=== PATIENT | female | born 1970 | race African-American/Black ===

== ENCOUNTER 2022-01-16 08:44 | Outpatient (REF) | payer OTHER, SELFPAY ==
[2022-01-16 09:23] LABS: MANUAL DIFF FLAG NO
[2022-01-16 09:59] LABS: Basophils Absolute Auto 0.1 X10*3/uL (0.0-0.2); Basophils Percent Auto 0.9 % (0-2); Eosinophils Absolute Auto 0.1 X10*3/uL (0.0-0.4); Eosinophils Percent Auto 1.9 % (0-4); Hematocrit 37.5 % (37.0-47.0); Hemoglobin 12.7 g/dl (12.0-16.0); Imm Gran Abs Auto 0.01 X10*3/uL (0.00-0.03); Imm Gran Pct Auto 0.2 % (0.0-0.4); Lymphocytes Absolute Auto 1.9 X10*3/uL (1.2-4.9); Lymphocytes Percent Auto 35.2 % (20-40); Mean Corpuscular HGB Conc 33.9 g/dl (31.0-35.0); Mean Corpuscular Hemoglobin 29.5 pg (27.0-33.0); Mean Corpuscular Volume 87.2 fL (80.0-98.0); Mean Platelet Volume 8.9 fL (9.4-12.3); Monocytes Absolute Auto 0.3 X10*3/uL (0.1-1.2); Monocytes Percent Auto 6.4 % (2-11); Neutrophils Absolute Auto 2.9 x10*3/uL (2.0-8.3); Neutrophils Percent Auto 55.4 % (45-73); Platelet Count 323 X10*3/uL (160-400); Red Cell Distribution Width 12.1 % (11.0-16.0); White Blood Count 5.3 X10*3/uL (4.8-10.8)
[2022-01-16 10:14] LABS: Estimated Average Glucose 226 mg/dL; Hemoglobin A1c % 9.5 %
[2022-01-16 10:43] LABS: Alanine Aminotransferase 12 U/L (0-31); Albumin Level 4.3 g/dL (3.5-5.0); Alkaline Phosphatase 120 U/L (39-117); Anion Gap 14 (12-20); Aspartate Amino Transferase 10 U/L (5-31); Bilirubin Total 0.6 mg/dL (0.0-1.0); Blood Urea Nitrogen 12 mg/dL (9-16); Calcium 9.4 mg/dL (8.4-10.2); Carbon Dioxide 26 mmol/L (22-29); Chloride 103 mmol/L (96-108); Cholesterol 139 mg/dL; Estimated Glomerular Filt Rate 56; Glucose Random 205 mg/dL (60-115); HDL Cholesterol 34 mg/dL; LDL Cholesterol Calculated 96 mg/dl; Potassium 4.5 mmol/L (3.3-5.1); Sodium 138 mmol/L (135-145); Total Protein 7.1 g/dL (6.5-8.0); Triglycerides 49 mg/dL
[2022-01-16 10:45] LABS: TSH reflex Free T4 0.74 uIU/mL (0.32-4.0); Vitamin D 25-OH Total 37.8 ng/mL (>30)
[2022-01-16 11:39] LABS: Folate 19.9 ng/mL (> or = 4.0); Vitamin B12 752 pg/mL (200-900)
[2022-01-16 11:47] LABS: Creatinine Urine 222.67 mg/dL
[2022-01-21 01:17] LABS: Levetiracetam Keppra 33.2 mcg/mL (6.0-46.0)
== END 2022-01-16 08:45 | disposition home or self-care (01) ==
LOC: HO.LAB 08:44
PROVIDERS: PCP Nurse Practitioner Family; Visit Provider Nurse Practitioner Family
DX: Z13.29 Encounter for screening for other suspected endocrine disorder (principal); I10 Essential (primary) hypertension; E78.5 Hyperlipidemia, unspecified; E11.9 Type 2 diabetes mellitus without complications; R56.9 Unspecified convulsions; Z76.89 Persons encountering health services in other specified circumstances
CPT/HCPCS: 36415; 80053; 80061; 80177; 82043; 82306; 82607; 82746; 83036; 84443; 85025

== ENCOUNTER → 2022-04-04 16:09 | Outpatient (BNVA) | payer MEDICARE, MEDICAID, SELFPAY | PROVIDERS: PCP Nurse Practitioner Family; Visit Provider Nurse Practitioner | DX: Z01.818 Encounter for other preprocedural examination (principal); R56.9 Unspecified convulsions; I69.951 Hemiplegia and hemiparesis following unspecified cerebrovascular disease affecting right dominant side | CPT/HCPCS: 99202 ==

== ENCOUNTER 2022-06-09 13:44 | Outpatient (REF) | payer MEDICARE, MEDICAID, SELFPAY ==
--- NOTE | ~2022-06-09 | XR_ITS ---
EXAMINATION: SOFT TISSUE NECK AND CHEST. CLINICAL INFORMATION: Chest pain. Chest pain COMPARISON: None TECHNIQUE: Chest one view. Soft tissue neck 2 views. FINDINGS: Chest: The lungs are well-expanded and clear of acute process. The heart size and pulmonary vascularity is normal. No gross bony abnormality seen. Soft tissue neck: There is normal cervical lordosis. The vertebral heights, alignment are normal. There is loss of C4-C5 and C5-C6 disc height with moderate ventral spondylosis. Rest of the disc heights are normal. There is no visible acute fracture or dislocation. The prevertebral soft tissues are normal. XR/XR soft tissue neck IMPRESSION: 1. Unremarkable chest exam. 2. Degenerative disc changes C4-C5 and C5-C6 disc level with moderate ventral spondylosis. No visible acute fracture or dislocation seen.
--- NOTE | ~2022-06-09 | XR_ITS ---
EXAMINATION: SOFT TISSUE NECK AND CHEST. CLINICAL INFORMATION: Chest pain. Chest pain COMPARISON: None TECHNIQUE: Chest one view. Soft tissue neck 2 views. FINDINGS: Chest: The lungs are well-expanded and clear of acute process. The heart size and pulmonary vascularity is normal. No gross bony abnormality seen. Soft tissue neck: There is normal cervical lordosis. The vertebral heights, alignment are normal. There is loss of C4-C5 and C5-C6 disc height with moderate ventral spondylosis. Rest of the disc heights are normal. There is no visible acute fracture or dislocation. The prevertebral soft tissues are normal. XR/XR chest 1V IMPRESSION: 1. Unremarkable chest exam. 2. Degenerative disc changes C4-C5 and C5-C6 disc level with moderate ventral spondylosis. No visible acute fracture or dislocation seen.
== END 2022-06-09 13:45 | disposition home or self-care (01) ==
LOC: HO.HMGCX 13:44
PROVIDERS: PCP Nurse Practitioner Family; Visit Provider Physician Assistant
DX: R07.9 Chest pain, unspecified (principal); M54.2 Cervicalgia
CPT/HCPCS: 70360; 71045

== ENCOUNTER 2022-06-10 10:37 | Emergency (ER) | payer MEDICARE, MEDICAID, SELFPAY ==
--- NOTE | 2022-06-10 | ECG_ITS ---
Test Reason : CHEST PAIN Blood Pressure : / mmHG Vent. Rate : 084 BPM Atrial Rate : 084 BPM P-R Int : 144 ms QRS Dur : 068 ms QT Int : 344 ms P-R-T Axes : 057 015 033 degrees QTc Int : 406 ms Normal sinus rhythm Normal ECG When compared with ECG of 15-MAY-2019 21:34, No significant change was found Referred By: Generic ED Physician Electronically Signed By:ALETA GONZALEZ MD
[2022-06-10 10:55] VITALS: BP 121/80; PULSE 85; RESP 18; TEMP 36.4; O2SAT 95; BMI 27.9
--- NOTE | 2022-06-10 11:27 | ED.GENADULT ---
HPI - General Adult General Chief complaint: General Medical Stated complaint: Swollen lymph nodes Time Seen by Provider: 06/10/22 11:15 Source: patient and family Mode of arrival: ambulatory Limitations: no limitations History of Present Illness HPI narrative: 52y female with history of CVA wih righ sided weakness, IDDM, HLD, HTN presents with complaints of several days of chest discomfort which is sharp, worsened with deep breathing and movement with no associated shortness of breath, cough, leg swelling or leg pain. No fevers or chills. Patient also complaining of sore throat and swollen lymph nodes on the right side. No night sweats, weight loss. No reports of vomiting or diarrhea or abdominal pain. No neck pain or stiffness or heaache No recent travel or sick contacts Per patient in the past she has had intermittent swollen lymph nodes it has been given antibiotics which has seemed to help Patient seen at walk-in center yesterday. Patient had EKG and chest x-ray which per family and patient were negative. Patient also had negative COVID test. Was recommended she come to the emergency room yesterday with patient declined this. Related Data Home Medications Medication Instructions Recorded Confirmed aspirin 325 mg tablet,delayed 325 mg PO DAILY 11/27/21 05/30/22 release (Aspir-Siri) lisinopril 2.5 mg tablet 2.5 mg PO DAILY 11/27/21 05/30/22 multivitamin (One-A-Day Essential 1 tab PO DAILY 11/27/21 05/30/22 tablet) Previous Rx's Medication Instructions Recorded blood-glucose meter (Accu-Chek #1 ea 01/23/22 Cindy Plus Meter) atorvastatin 20 mg tablet 20 mg PO DAILY #90 tabs 02/25/22 lamotrigine 150 mg tablet 150 mg PO BID 90 days #180 tabs 03/07/22 peg 3350-electrolytes 236 240 ml PO Q10M 1 day #4,000 mL 04/04/22 gram-22.74 gram-6.74 gram-5.86 gram solution (Golytely) sodium,potassium,mag sulfates 17.5 480 ml PO .COMPLEX #354 mL 04/04/22 gram-3.13 gram-1.6 gram oral soln (Suprep Bowel Prep Kit) dulaglutide 0.75 mg/0.5 mL 0.75 mg (0.5 mL) subcut QWEEK #2 mL 04/25/22 subcutaneous pen injector ([facility]) levetiracetam 1,000 mg tablet 1,000 mg PO BID #60 tabs 06/04/22 clindamycin HCl 150 mg capsule 150 mg PO TID #21 caps 06/10/22 Allergies Allergy/AdvReac Type Severity Reaction Status Date / Time erythromycin base Allergy Unknown UNKNOWN Verified 06/09/22 13:23 [ERYTHROMYCIN BASE] latex [LATEX] Allergy Unknown UNKNOWN Verified 06/09/22 13:23 Penicillins [PENICILLINS] Allergy Unknown UNKNOWN Verified 06/09/22 13:23 latex Allergy Unknown Hives Uncoded 06/09/22 13:23 Review of Systems Review of Systems: Yes all other systems are reviewed and are negative Constitutional: Constitutional: Reports no additional constitutional complaints, Denies body ache(s), Denies chills, Denies fever(s), Denies headache(s) and Denies weakness Eyes: Eyes: Reports no additional eye complaints and Denies change in vision ENT: Reports system reviewed and no additional complaints, except as documented, Denies dizziness, Denies headache(s), Denies nasal congestion, Denies nasal discharge, Denies neck pain and Reports sore throat Cardiovascular: Cardiovascular: Reports no additional cardiovascular complaints, Reports chest pain, Denies leg edema and Denies dyspnea Respiratory: Respiratory: Reports no additional respiratory complaints, Denies cough and Denies dyspnea Gastrointestinal: Gastrointestinal: Reports no additional gastrointestinal complaints, Denies abdominal pain, Denies diarrhea, Denies nausea and Denies vomiting Genitourinary: Genitourinary: Reports no additional female genitourinary complaints and Denies urinary incontinence Musculoskeletal: Musculoskeletal: Reports no additional musculoskeletal complaints, Denies back pain, Denies arthralgias, Denies joint swelling, Denies neck pain, Denies numbness and Denies tingling Integumentary/Breasts: Skin/Breast: Reports system reviewed and no additional complaints, except as docu and Denies rash Neurologic: Reports system reviewed and no additional complaints, except as documented, Denies dizziness, Denies headache(s), Denies numbness, Denies tingling and Denies weakness PMFSH Past Medical History Attestation statement: The following information was validated with the patient. Source: old records reviewed and nursing notes reviewed Medical History Ecchymosis Encounter to establish care Hx of cyst of breast Surgical History H/O colonoscopy History of partial hysterectomy History of thyroid surgery Family History Family History Mother Bone cancer Hypertension Diabetes Father Diabetes Hypertension Social History Social History Housing: Apartment Patient Tobacco Use Status: Never used Tobacco e-Cigarette/Vaping Use: Never Used Second Hand Smoke Exposure: No Advance Directives: Yes Advance Directives Information Provided: Yes Advance Directives on File: No Current occupational status: unemployed Cognitive needs: Yes (cane ) Hearing needs: No Vision needs: Yes (glasses) Physical Exam ED Vital Signs: Vital Signs - 24 hr 06/10/22 10:55 Temperature 97.5 F Pulse Rate 85 Respiratory Rate 18 Blood Pressure 121/80 Pulse Oximetry 95 Oxygen Delivery Method Room Air BMI result Body Mass Index 27.9 Const General: cooperative, healthy appearing, comfortable and no acute distress Orientation/consciousness: patient oriented x3 Limitations: no limitations HENMT Head: Yes normal to inspection Ears: hearing grossly normal bilaterally General nose exam: Normal external nose present Face and sinus: Yes normal facial exam Mouth: Normal oral and palatal mucosa present Teeth and gingiva: dentition normal Throat: Yes posterior oropharynx normal, Yes tonsils normal and Yes uvula midline Eyes General: appearance normal, both eyes and all related structures Pupils: Equal, round and reactive pupils present Neck Other: There is some mild lymphadenopathy over the right anterior cervical and sub mandibular area. No supraclavicular lymphadenopathy. There is tenderness on palpation. The nodes are soft and mobile Neck: Yes normal visual inspection, Yes full ROM and Yes no meningeal signs Chest Other: Central chest tender to palpate Chest palpation & inspection: normal inspection of the chest Resp Effort & Inspection: normal respiratory effort Auscultation: clear to auscultation bilaterally Cardio Rate: regular rate Rhythm: regular rhythm Peripheral pulses: Peripheral pulses 2+ throughout GI Inspection: Yes normal to inspection Palpation (GI): Soft to palpation and nontender General: Yes no CVA tenderness Back/Spine/Pelvis Back: no CVA tenderness Thoracic/Lumbar Spine: thoracic and lumbar spine normal to inspection Skin General skin exam: no rashes or lesions noted Neuro Other: Weakness on right side at baseline General: patient oriented x3, moves all extremities and no meningeal signs Cranial nerves: Yes Equal, round and reactive pupils present Cognition (Neuro): normal cognition Gait exam (Neuro): Normal gait present Extrem General: Yes normal to inspection, Yes no pedal edema and Yes no calf tenderness Course Course Course Narrative: Less likely ACS with symptoms for several days with negative EKG and troponin. I did consider PE. Patient has no hypoxia, no tachypnea, no tachycardia. She has no clinical findings concerning for DVT and exam. Her D-dimer is negative. Less likely. Patient with lymphadenopathy which has been recurrent with no supraclavicular lymphadenopathy or worrisome signs and symptoms such as weight loss or night sweats to suggest malignancy. We did discuss starting antibiotics and patient following up with her primary care doctor for reoccur in lymphadenopathy for possible biopsy. Reviewed worrisome signs and symptoms of when to return to the emergency room. Comfortable plan for discharge home. Medical Decision Making [facility] Narrative Medical decision making narrative: 52yo female here with several days of chest pain which is reproducible and pleuritic in nature with no shortness of breath, diaphoresis or vomiting or fever cough. Also sore throat with right-sided swollen lymph nodes.. Will check labs, EKG. Family defferedd COVID screen and chest x-ray as patient had yesterday and were negative. Consider ACS, PE, viral syndrome Medical Records Medical records reviewed: Yes I reviewed the patient's medical records. Lab Data Lab results reviewed: Yes I reviewed the patient's lab results. Result diagrams: 06/10/22 11:45 06/10/22 11:45 Labs: Lab Results 06/10/22 06/10/22 06/10/22 Range/Units 11:45 11:45 11:45 WBC 6.5 (4.8-10.8) X10*3/uL RBC 4.41 (4.20-5.50) X10*6/uL Hgb 13.0 (12.0-16.0) g/dl Hct 38.5 (37.0-47.0) % MCV 87.3 (80.0-98.0) fL MCH 29.5 (27.0-33.0) pg MCHC 33.8 (31.0-35.0) g/dl RDW 12.3 (11.0-16.0) % Plt Count 342 (160-400) X10*3/uL MPV 8.6 L (9.4-12.3) fL Absolute Nucleated RBC 0.000 (0.0-0.012) X10*3/uL Nucleated RBC % (auto) 0.0 (0.0-0.2) /100WBC PT 12.8 (10.0-13.1) SEC INR 1.1 (0.9-1.1) D-Dimer High Sensitivty < 150 NG/ML Sodium 140 (135-145) mmol/L Potassium 4.3 (3.3-5.1) mmol/L Chloride 103 (96-108) mmol/L Carbon Dioxide 27 (22-29) mmol/L Anion Gap 14 (12-20) BUN 16 (9-16) mg/dL Creatinine 1.02 (0.5-1.4) mg/dL Estim Creat Clear Calc 67.3 Estimated GFR 57 Random Glucose 86 (60-115) mg/dL Calcium 9.8 (8.4-10.2) mg/dL Total Bilirubin 0.3 (0.0-1.0) mg/dL Direct Bilirubin < 0.2 (0.0-0.5) mg/dL AST 14 (5-31) U/L ALT 14 (0-31) U/L Alkaline Phosphatase 127 H (39-117) U/L Troponin I High Sens (<3.5-17.0) ng/L Total Protein 7.7 (6.5-8.0) g/dL Albumin 4.7 (3.5-5.0) g/dL 06/10/22 Range/Units 11:46 WBC (4.8-10.8) X10*3/uL RBC (4.20-5.50) X10*6/uL Hgb (12.0-16.0) g/dl Hct (37.0-47.0) % MCV (80.0-98.0) fL MCH (27.0-33.0) pg MCHC (31.0-35.0) g/dl RDW (11.0-16.0) % Plt Count (160-400) X10*3/uL MPV (9.4-12.3) fL Absolute Nucleated RBC (0.0-0.012) X10*3/uL Nucleated RBC % (auto) (0.0-0.2) /100WBC PT (10.0-13.1) SEC INR (0.9-1.1) D-Dimer High Sensitivty NG/ML Sodium (135-145) mmol/L Potassium (3.3-5.1) mmol/L Chloride (96-108) mmol/L Carbon Dioxide (22-29) mmol/L Anion Gap (12-20) BUN (9-16) mg/dL Creatinine (0.5-1.4) mg/dL Estim Creat Clear Calc Estimated GFR Random Glucose (60-115) mg/dL Calcium (8.4-10.2) mg/dL Total Bilirubin (0.0-1.0) mg/dL Direct Bilirubin (0.0-0.5) mg/dL AST (5-31) U/L ALT (0-31) U/L Alkaline Phosphatase (39-117) U/L Troponin I High Sens < 3.5 (<3.5-17.0) ng/L Total Protein (6.5-8.0) g/dL Albumin (3.5-5.0) g/dL ECG Data Attestation: I personally reviewed and interpreted this ECG as follows: Interpretation: Normal sinus rhythm with a rate 84, normal [place], normal QRS, normal QT Discharge Plan Discharge Clinical Impression: Chest pain, Lymphadenopathy Patient Disposition: Home, Self-Care Instructions: Chest Pain (DC), Lymphadenopathy (ED) Additional Instructions: Your EKG, lab work are all very reassuring here. We are starting on oral antibiotic for your swollen lymph nodes. Please follow-up with her primary care doctor if you notice some swelling still after completing the antibiotics. If this happens he may need a biopsy. Please return for any worsening symptoms Always take the antibiotic with food Prescriptions: New clindamycin HCl 150 mg capsule 150 mg PO TID Qty: 21 0RF No Action atorvastatin 20 mg tablet 20 mg PO DAILY Qty: 90 1RF lamotrigine 150 mg tablet 150 mg PO BID 90 Days Qty: 180 1RF levetiracetam 1,000 mg tablet 1,000 mg PO BID Qty: 60 2RF aspirin [Aspir-Siri] 325 mg tablet,delayed release (DR/EC) 325 mg PO DAILY Rx Instructions: Every other day multivitamin [One-A-Day Essential] Tablet 1 tab PO DAILY lisinopril 2.5 mg tablet 2.5 mg PO DAILY Rx Instructions: Every other day (DME) blood-glucose meter [Accu-Chek Cindy Plus Meter] Misc See Rx Instructions .Route Qty: 1 0RF Rx Instructions: As directed Trulicity 0.75 mg/0.5 mL pen injector 0.75 mg subcut QWEEK Qty: 2 1RF peg 3350-electrolytes [Golytely] 236-22.74-6.74 -5.86 gram recon soln 240 ml PO Q10M 1 Days Qty: 4000 0RF Rx Instructions: until fecal effluent is clear; do not exceed a total volume of 2,000 mL sodium,potassium,mag sulfates [Suprep Bowel Prep Kit] 17.5-3.13-1.6 gram recon soln 480 ml PO .COMPLEX Qty: 354 0RF Rx Instructions: 480 mL orally; pT PREFERS THIS PREP SO PLEASE DISREGARD THE GO LYTELY Referrals: Estephania Padilla FNP [Primary Care Provider] - 1 week Interventions: ED Discharge Assessment Last Done: 06/10/22 13:15 Discharge Date/Time: 06/10/22 13:16
[2022-06-10 11:59] LABS: Hematocrit 38.5 % (37.0-47.0); Mean Corpuscular HGB Conc 33.8 g/dl (31.0-35.0); Mean Corpuscular Hemoglobin 29.5 pg (27.0-33.0); Mean Corpuscular Volume 87.3 fL (80.0-98.0); Mean Platelet Volume 8.6 fL (9.4-12.3); Platelet Count 342 X10*3/uL (160-400); Red Blood Count 4.41 X10*6/uL (4.20-5.50); Red Cell Distribution Width 12.3 % (11.0-16.0); White Blood Count 6.5 X10*3/uL (4.8-10.8)
[2022-06-10 12:00] LABS: INTERNATIONAL NORM RATIO 1.1 (0.9-1.1); Prothrombin Time 12.8 SEC (10.0-13.1)
[2022-06-10 12:11] LABS: Alanine Aminotransferase 14 U/L (0-31); Albumin Level 4.7 g/dL (3.5-5.0); Alkaline Phosphatase 127 U/L (39-117); Anion Gap 14 (12-20); Aspartate Amino Transferase 14 U/L (5-31); Bilirubin Direct < 0.2 mg/dL (0.0-0.5); Bilirubin Total 0.3 mg/dL (0.0-1.0); Blood Urea Nitrogen 16 mg/dL (9-16); Calcium 9.8 mg/dL (8.4-10.2); Carbon Dioxide 27 mmol/L (22-29); Chloride 103 mmol/L (96-108); Creatinine Clr Calc Pharmacy 67.3; Estimated Glomerular Filt Rate 57; Glucose Random 86 mg/dL (60-115); Potassium 4.3 mmol/L (3.3-5.1); Sodium 140 mmol/L (135-145); Total Protein 7.7 g/dL (6.5-8.0)
[2022-06-10 12:17] LABS: Troponin-I High Sensitivity < 3.5 ng/L (<3.5-17.0)
[2022-06-10 12:58] LABS: D Dimer High Sensitivity < 150 NG/ML
== END 2022-06-10 13:16 | disposition home or self-care (01) ==
PROVIDERS: Nurse Practitioner Family; Emergency Provider Emergency Medicine; PCP Nurse Practitioner Family
DX: R07.89 Other chest pain (principal); R59.1 Generalized enlarged lymph nodes; Z79.899 Other long term (current) drug therapy
CPT/HCPCS: 36415; 80053; 80076; 82248; 84484; 85027; 85379; 85610; 93005; 99283

== ENCOUNTER → 2022-07-02 12:52 | Outpatient (BNVA) | payer MEDICARE, MEDICAID, SELFPAY | PROVIDERS: PCP Nurse Practitioner Family; Visit Provider Internal Medicine Endocrinology, Diabetes & Metabolism | DX: E11.9 Type 2 diabetes mellitus without complications (principal) | CPT/HCPCS: 82947; 83036; 99202 ==

== ENCOUNTER 2022-07-06 13:07 | Emergency (ER) | payer MEDICARE, MEDICAID, SELFPAY ==
--- NOTE | ~2022-07-06 | CT_ITS ---
EXAMINATION: CT ABDOMEN AND PELVIS WITHOUT CONTRAST CLINICAL INFORMATION: Abdominal pain. Question C. difficile colitis COMPARISON: None TECHNIQUE: Multidetector volumetric imaging was performed from the superior aspect of the liver through the pubic symphysis. Sagittal and coronal reformatted images were obtained on the technologist's workstation. This CT examination was performed using dose optimization techniques as appropriate, variously including the following: *Automated exposure control *Adjustment of mA and/or kV according to patient size (this includes techniques or standardized protocols for targeted exams where dose is matched to indication/reason for exam; i.e. extremities or head) *Use of iterative reconstruction technique DLP: 661 mGy-cm FINDINGS: LUNG BASES: Minimal subsegmental atelectasis in the right middle lobe. Multiple surgical clips in the left breast. Small 1.3 x 0.6 cm soft tissue nodule in the anterior left lower chest wall/medial breast on series 3 image 8, indeterminate. LIVER, GALLBLADDER, AND BILIARY TREE: The liver is normal in size, shape, and attenuation. No focal hepatic lesion or biliary ductal dilatation is present. The gallbladder is unremarkable with no evidence of radiopaque gallstones, gallbladder wall thickening, or obvious pericholecystic inflammatory changes. PANCREAS: Unremarkable. SPLEEN: Unremarkable. ADRENAL GLANDS: Small subcentimeter nodule in the right adrenal gland, likely benign adenoma. Normal left adrenal gland. KIDNEYS AND URETERS: The kidneys are normal in size, shape, and attenuation. No hydronephrosis, hydroureter, or calculi seen. No perinephric stranding. BLADDER: Unremarkable. GASTROINTESTINAL TRACT: Mural thickening of the left colon extending from the splenic flexure to the rectum. Unclear as to whether or not this represents true mural thickening versus limited distention. There does appear to be minimal hazy pericolonic fat stranding and slight prominence of pericolonic vessels. More proximal colon does not appear thick walled. No dilated bowel loops. Appendix is prominent in caliber measuring up to 0.7 cm in diameter. No surrounding inflammatory change to suggest acute appendicitis. No ascites or free air. ABDOMINAL WALL: No significant hernia is appreciated. LYMPH NODES: No lymphadenopathy. VASCULAR: Unremarkable. PELVIC VISCERA: Status post hysterectomy. Trace free pelvic fluid. OSSEOUS STRUCTURES: No acute fracture or suspicious osseous lesion. CT/CT abdomen pelvis wo IV con IMPRESSION: 1. Apparent mild thickening of the left colon extending from the splenic flexure to the rectum. Unclear as to whether or not this represents true mural thickening versus limited distention. There does appear to be minimal pericolonic fat stranding and slight prominence of pericolonic vessels. Cannot exclude mild colitis. 2. No other acute intra-abdominal process identified. 3. Small 1.3 x 0.6 cm soft tissue nodule in the anterior left lower chest wall/medial breast, indeterminate. Correlate clinically and with mammographic workup as indicated. Finding was not seen on comparison chest CT 05/01/2017.
[2022-07-06 13:19] VITALS: BP 124/72; PULSE 88; RESP 18; TEMP 36.8; O2SAT 98; BMI 28.3
--- NOTE | 2022-07-06 13:22 | ED.ABDPAIN ---
HPI - Abdominal Pain General Chief Complaint: Abdominal Pain <GINO Pires Last Filed: 07/06/22 13:30> Stated Complaint: Abd pain <GINO Pires - Last Filed: 07/06/22 13:30> Time Seen by Provider: 07/06/22 15:54 <GINO Pires Last Filed: 07/06/22 13:30> Source: patient and family (daughter) <GINO Vazquez Last Filed: 07/07/22 00:57> Mode of arrival: ambulatory <GINO Vazquez Last Filed: 07/07/22 00:57> Limitations: no limitations <GINO Vazquez Last Filed: 07/07/22 00:57> History of Present Illness HPI narrative: Patient is a 52 year old assigned female at with a history of CVA with right sided weakness, IDDM, HLD, and HTN presenting to the emergency department today with several days of watery/yellow diarrhea. Patient states that on 06/10/2022 she was started on antibiotics and ever since finishing those, she has had this watery/yellow/muscous type diarrhea. Patient denies any dizziness, lightheadedness, abdominal pain, nausea, vomiting, fever, chills, blurry vision, double vision, loss of vision, chest pain, difficulty breathing, shortness of breath, back pain, night sweats, pain with urination, increased urinary frequency, increased urinary urgency, blood in her urine or stool, syncope or a near syncopal episode, recent trauma or falls, bowel incontinence, bladder incontinence, bowel retention, bladder retention, or any other complaints at this time. <GINO Vazquez - Last Filed: 07/07/22 00:57> Onset (ago): day(s) <GINO Vazquez - Last Filed: 07/07/22 00:57> Pain Consistency: constant <GINO Vazquez Last Filed: 07/07/22 00:57> Severity: moderate <GINO Vazquez Last Filed: 07/07/22 00:57> Exacerbating factors: nothing <GINO Vazquez Last Filed: 07/07/22 00:57> Relieving factors: nothing <GINO Vazquez Last Filed: 12/19/22 00:57> Associated symptoms: diarrhea <GINO Vazquez - Last Filed: 07/07/22 00:57> Related Data Home Medications: Home Medications Medication Instructions Recorded Confirmed aspirin 325 mg tablet,delayed 325 mg PO DAILY 11/27/21 05/30/22 release (Aspir-Siri) lisinopril 2.5 mg tablet 2.5 mg PO DAILY 11/27/21 07/02/22 multivitamin (One-A-Day Essential 1 tab PO DAILY 11/27/21 07/02/22 tablet) Previous Rx's Medication Instructions Recorded blood-glucose meter (Accu-Chek #1 ea 01/23/22 Cindy Plus Meter) atorvastatin 20 mg tablet 20 mg PO DAILY #90 tabs 02/25/22 lamotrigine 150 mg tablet 150 mg PO BID 90 days #180 tabs 03/07/22 peg 3350-electrolytes 236 240 ml PO Q10M 1 day #4,000 mL 04/04/22 gram-22.74 gram-6.74 gram-5.86 gram solution (Golytely) sodium,potassium,mag sulfates 17.5 480 ml PO .COMPLEX #354 mL 04/04/22 gram-3.13 gram-1.6 gram oral soln (Suprep Bowel Prep Kit) levetiracetam 1,000 mg tablet 1,000 mg PO BID #60 tabs 06/04/22 clindamycin HCl 150 mg capsule 150 mg PO TID #21 caps 06/10/22 dulaglutide 0.75 mg/0.5 mL 0.75 mg (0.5 mL) subcut QWEEK #2 mL 06/26/22 [facility] blood sugar diagnostic (FreeStyle #100 ea 07/02/22 Lite Strips) blood-glucose meter (FreeStyle #1 ea 07/02/22 Lite Meter kit) lancets 28 gauge (FreeStyle #100 ea 07/03/22 Lancets) vancomycin 125 mg capsule 125 mg PO QID 10 days #40 caps 07/06/22 <GINO Pires - Last Filed: 07/06/22 13:30> Allergies/Adverse Reactions: Allergies Allergy/AdvReac Type Severity Reaction Status Date / Time erythromycin base Allergy Unknown UNKNOWN Verified 07/02/22 13:02 [ERYTHROMYCIN BASE] latex [LATEX] Allergy Unknown UNKNOWN Verified 07/02/22 13:02 Penicillins [PENICILLINS] Allergy Unknown UNKNOWN Verified 07/02/22 13:02 latex Allergy Unknown Hives Uncoded 07/02/22 13:02 <GINO Pires - Last Filed: 07/06/22 13:30> Review of Systems Constitutional: Reports no additional constitutional complaints, Denies chills, Denies fever(s) and Denies night sweats <GINO Vazquez Last Filed: 07/07/22 00:57> Eyes: Reports no additional eye complaints, Denies blurry vision, Denies change in vision, Denies diplopia, Denies eye discharge, Denies loss of vision and Denies eye pain <GINO Vazquez Last Filed: 07/07/22 00:57> Denies dizziness <GINO Vazquez Last Filed: 07/07/22 00:57> Cardiovascular: Reports no additional cardiovascular complaints, Denies chest pain, Denies lightheadedness, Denies Loss of Consciousness and Denies dyspnea <GINO Vazquez Last Filed: 07/07/22 00:57> Respiratory: Reports no additional respiratory complaints and Denies dyspnea <GINO Vazquez Last Filed: 07/07/22 00:57> Gastrointestinal: Reports no additional gastrointestinal complaints, Denies abdominal pain, Denies melena, Denies hematochezia, Reports change in bowel habits, Reports change in stool character, Reports diarrhea and Reports loose stools <GINO Vazquez Last Filed: 07/07/22 00:57> Genitourinary: Denies hematuria, Denies urinary frequency, Denies dysuria, Denies urinary incontinence, Denies urinary hesitancy and Denies urinary urgency <GINO Vazquez Last Filed: 07/07/22 00:57> Musculoskeletal: Reports no additional musculoskeletal complaints, Denies numbness and Denies tingling <GINO Vazquez Last Filed: 07/07/22 00:57> Denies dizziness, Denies loss of vision, Denies numbness and Denies tingling <GINO Vazquez Last Filed: 07/07/22 00:57> Psychiatric: Reports no additional psychiatric complaints <GINO Vazquez - Last Filed: 07/07/22 00:57> Endocrine: Reports no additional endocrine complaints <GINO Vazquez - Last Filed: 07/07/22 00:57> Hematologic/Lymphatic: Reports no additional hematologic/lymphatic complaints <GINO Vazquez - Last Filed: 07/07/22 00:57> Allergic/Immunologic: Reports no additional allergic/immunologic complaints <GINO Vazquez - Last Filed: 07/07/22 00:57> [facility] Past Medical History Attestation statement: The following information was validated with the patient. <GINO Vazquez - Last Filed: 07/07/22 00:57> Source: old records reviewed, obtained from family (patient's daughter) and nursing notes reviewed <GINO Vazquez - Last Filed: 07/07/22 00:57> Medical History: Medical History Ecchymosis Encounter to establish care Hx of cyst of breast <GINO Pires - Last Filed: 07/06/22 13:30> Surgical History: Surgical History H/O colonoscopy History of partial hysterectomy History of thyroid surgery <GINO Pires - Last Filed: 07/06/22 13:30> Family History Family History: Family History Mother Bone cancer Hypertension Diabetes Father Diabetes Hypertension <GINO Pires - Last Filed: 07/06/22 13:30> Social History Social History: Social History Housing: Apartment Patient Tobacco Use Status: Never used Tobacco e-Cigarette/Vaping Use: Never Used Second Hand Smoke Exposure: No Advance Directives: No Advance Directives Information Provided: Yes Current occupational status: unemployed Cognitive needs: Yes (cane ) Hearing needs: No Vision needs: Yes (glasses) <GINO Pires - Last Filed: 07/06/22 13:30> Physical Exam ED Vital Signs: Vital Signs - 24 hr 07/06/22 13:19 Temperature 98.2 F Pulse Rate 88 Respiratory Rate 18 Blood Pressure 124/72 Pulse Oximetry 98 Oxygen Delivery Method Room Air BMI result Body Mass Index 28.3 <GINO Pires - Last Filed: 07/06/22 13:30> Vital Signs - 24 hr 07/06/22 13:19 Temperature 98.2 F Pulse Rate 88 Respiratory Rate 18 Blood Pressure 124/72 Pulse Oximetry 98 Oxygen Delivery Method Room Air BMI result Body Mass Index 28.3 <GINO Vazquez - Last Filed: 07/07/22 00:57> Const General: cooperative, no acute distress, alert and awake <GINO Vazquez - Last Filed: 07/07/22 00:57> Nutritional Appearance: well nourished <GINO Vazquez - Last Filed: 07/07/22 00:57> Orientation/consciousness: patient oriented x3 <GINO Vazquez Last Filed: 07/07/22 00:57> Limitations: no limitations <GINO Vazquez Last Filed: 07/07/22 00:57> HENMT Head: Yes normal to inspection and Yes atraumatic <GINO Vazquez - Last Filed: 07/07/22 00:57> Ears: hearing grossly normal bilaterally and external ears normal <GINO Vazquez - Last Filed: 07/07/22 00:57> General nose exam: Normal external nose present, no nasal discharge noted and no epistaxis <GINO Vazquez Last Filed: 07/07/22 00:57> Face and sinus: Yes normal facial exam, No abrasion and No laceration <GINO Vazquez - Last Filed: 07/07/22 00:57> Mouth: Normal oral and palatal mucosa present, no drooling and no muffled voice <GINO Vazquez Last Filed: 07/07/22 00:57> Eyes General: appearance normal, both eyes and all related structures <GION Vazquez Last Filed: 07/07/22 00:57> Periorbital: periorbital findings normal <GINO Vazquez Last Filed: 07/07/22 00:57> Eyelids: Yes eyelids normal <GINO Vazquez - Last Filed: 07/07/22 00:57> Conjunctivae: conjunctivae normal <Pooja SargentGINO kiser - Last Filed: 07/07/22 00:57> Pupils: Equal, round and reactive pupils present <Poojavirginia SargentGINO kiser - Last Filed: 07/07/22 00:57> EOM: EOMs intact bilaterally <Pooja SargentGINO kiser - Last Filed: 07/07/22 00:57> Neck Neck: Yes normal visual inspection, Yes full ROM and Yes no lymphadenopathy <GINO Vazquez - Last Filed: 07/07/22 00:57> Chest Chest palpation & inspection: normal inspection of the chest <Pooja DavisGINO kiser - Last Filed: 07/07/22 00:57> Resp Effort & Inspection: normal respiratory effort and able to speak in complete sentences <GINO Vazquez - Last Filed: 07/07/22 00:57> Auscultation: clear to auscultation bilaterally <GINO Vazquez - Last Filed: 07/07/22 00:57> Cardio Rate: regular rate <GINO Vazquez - Last Filed: 07/07/22 00:57> Rhythm: regular rhythm <Poojavirginia SargentGINO kiser - Last Filed: 07/07/22 00:57> GI Inspection: Yes normal to inspection <GINO Vazquez - Last Filed: 07/07/22 00:57> Neuro General: patient oriented x3 and moves all extremities <Pooja DavisGINO kiser - Last Filed: 07/07/22 00:57> Cranial nerves: Yes Equal, round and reactive pupils present <GINO Vazquez - Last Filed: 07/07/22 00:57> Cognition (Neuro): normal cognition <Pooja GINO Davis - Last Filed: 07/07/22 00:57> Motor exam (neuro): Other motor observations present (right sided deficit per her baseline) <IGNO Vazquez - Last Filed: 07/07/22 00:57> Extrem Other: patient has right sided deficit post previous CVA <GINO Vazquez - Last Filed: 07/07/22 00:57> General: Yes normal to inspection and Yes capillary refill normal <GINO Vazquez - Last Filed: 07/07/22 00:57> Psych Appearance: grossly normal <GINO Vazquez - Last Filed: 07/07/22 00:57> Mental Status: mental status grossly normal <GINO Vazquez - Last Filed: 07/07/22 00:57> Affect: normal affect <GINO Vazquez Last Filed: 07/07/22 00:57> Attitude: cooperative <GINO Vazquez - Last Filed: 07/07/22 00:57> Thought process: Normal thought process present <GINO Vazquez Last Filed: 07/07/22 00:57> Thought content: Normal thought content present <GINO Vazquez Last Filed: 07/07/22 00:57> Insight: Good insight present (Psych) <GINO Vazquez Last Filed: 07/07/22 00:57> Course Course Course Narrative: RME - 52y female with history of CVA with right sided weakness, IDDM, HLD, HTN presents with complaints of several days presenting to the ED with complaints of watery/yellow mucousy diarrhea that occurs very often throughout the day for the past week. Reports that she no longer wants to eat because every time she eats she has to run to the bathroom. Patient was recently seen here and started on antibiotics on 06/10/2022 for lymphadenopathy she was placed on clindamycin 150 mg t.i.d. took as prescribed and is now having this diarrhea. She reports associated left-sided abdominal pain. She denies any other symptoms related to this. Plan: Will obtain labs, stool sample including C diff and a CT scan abdomen pelvis without IV contrast. Patient is stable to go back to the waiting room to be evaluated in the ED. <GINO Pires - Last Filed: 07/06/22 13:30> Medical Decision Making Medical Decision Making MDM Narrative: Patient is a 52 year old assigned female at with a history of CVA with right sided weakness, IDDM, HLD, and HTN presenting to the emergency department today with watery/yellow diarrhea. Patient's physical exam showed right sided deficit per her baseline but was otherwise unremarkable. Patient's blood work was unremarkable. Patient's urine showed a possible UTI however, the patient does not have any urinary complaints, will await culture before initiating treatment. Patient was unable to provide a stool sample. Patient's abdomen/pelvis CT showed possible collitis. Patient's clinical presentation is most consistent with c.diff. I explained my physical exam findings as well as all test results to the patient and the patient's daughter. I answered all questions asked by the patient and the patient's daughter. I stressed the importance of the patient taking her medication as prescribed. I stressed the importance of the patient following up with her primary care provider. I stressed the importance of the patient returning to the emergency department immediately if her symptoms were to worsen or if she were to develop any dizziness, shortness of breath, difficulty breathing, chest pain, blurry vision, loss of vision, nausea, vomiting, abdominal pain, fever, chills, back pain, or any other complaints. Patient and the patient's daughter verbalized agreement and understanding with this treatment plan and discharge. <GINO Vazquez - Last Filed: 07/07/22 00:57> Differential Diagnosis Differential Diagnoses: The differential diagnosis associated with the presentation includes <GINO Vazquez - Last Filed: 07/07/22 00:57> Lab Data MDM Lab Attestation statement: I reviewed the patient's lab results. <GINO Vazquez - Last Filed: 07/07/22 00:57> Result Diagrams: : 07/06/22 17:25 07/06/22 15:10 <GINO Pries - Last Filed: 07/06/22 13:30> Labs: Lab Results 07/06/22 07/06/22 07/06/22 Range/Units 15:10 15:10 15:10 WBC (4.8-10.8) X10*3/uL RBC (4.20-5.50) X10*6/uL Hgb (12.0-16.0) g/dl Hct (37.0-47.0) % MCV (80.0-98.0) fL MCH (27.0-33.0) pg MCHC (31.0-35.0) g/dl RDW (11.0-16.0) % Plt Count (160-400) X10*3/uL MPV (9.4-12.3) fL Immature Gran % (Auto) (0.0-0.4) % Neut % (Auto) (45-73) % Lymph % (Auto) (20-40) % [place] % (Auto) (2-11) % Eos % (Auto) (0-4) % Baso % (Auto) (0-2) % Lymph # (Auto) (1.2-4.9) X10*3/uL [place] # (Auto) (0.1-1.2) X10*3/uL Eos # (Auto) (0.0-0.4) X10*3/uL Baso # (Auto) (0.0-0.2) X10*3/uL Abs Immat Gran (auto) (0.00-0.03) X10*3/uL Absolute Neuts (auto) (2.0-8.3) x10*3/uL Absolute Nucleated RBC (0.0-0.012) X10*3/uL Nucleated RBC % (auto) (0.0-0.2) /100WBC PT 13.5 H (10.0-13.1) SEC INR 1.2 H (0.9-1.1) Sodium 139 (135-145) mmol/L Potassium 3.7 (3.3-5.1) mmol/L Chloride 103 (96-108) mmol/L Carbon Dioxide 27 (22-29) mmol/L Anion Gap 13 (12-20) BUN 9 (9-16) mg/dL Creatinine 0.87 (0.5-1.4) mg/dL Estim Creat Clear Calc 79.4 Estimated GFR > 60 Random Glucose 82 (60-115) mg/dL Calcium 9.3 (8.4-10.2) mg/dL Magnesium 1.9 (1.6-2.6) mg/dL Total Bilirubin 0.3 (0.0-1.0) mg/dL AST 15 (5-31) U/L ALT 17 (0-31) U/L Alkaline Phosphatase 121 H (39-117) U/L Total Protein 7.2 (6.5-8.0) g/dL Albumin 4.4 (3.5-5.0) g/dL Lipase 22 (8-78) U/L Beta HCG, Quant < 2 mIU/mL Urine Color Urine Appearance Urine pH (5.0-9.0) Ur Specific Lueders (1.005-1.025) Urine Protein (Neg-Trace) mg/dL Urine Glucose (UA) (Negative) mg/dL Urine Ketones (Negative) mg/dL Urine Blood (Negative) Urine Nitrite (Negative) Ur Leukocyte Esterase (Negative) Urine RBC (0-2) /HPF Urine WBC (0-5) /HPF Ur Squamous Epith Cells (0-2) /HPF Urine Bacteria (None Seen) Hyaline Casts (0-2) /LPF Influenza Type A (PCR) NEGATIVE (Negative) Influenza Type B (PCR) NEGATIVE (Negative) RSV RNA Qual (PCR) NEGATIVE (Negative) SARS-CoV-2 RNA (RT-PCR) NEGATIVE (Negative) 07/06/22 07/06/22 Range/Units 15:10 17:25 WBC 8.7 (4.8-10.8) X10*3/uL RBC 4.26 (4.20-5.50) X10*6/uL Hgb 12.6 (12.0-16.0) g/dl Hct 36.4 L (37.0-47.0) % MCV 85.4 (80.0-98.0) fL MCH 29.6 (27.0-33.0) pg MCHC 34.6 (31.0-35.0) g/dl RDW 12.5 (11.0-16.0) % Plt Count 347 (160-400) X10*3/uL MPV 8.5 L (9.4-12.3) fL Immature Gran % (Auto) 0.2 (0.0-0.4) % Neut % (Auto) 57.2 (45-73) % Lymph % (Auto) 32.2 (20-40) % [place] % (Auto) 6.7 (2-11) % Eos % (Auto) 3.0 (0-4) % Baso % (Auto) 0.7 (0-2) % Lymph # (Auto) 2.8 (1.2-4.9) X10*3/uL [place] # (Auto) 0.6 (0.1-1.2) X10*3/uL Eos # (Auto) 0.3 (0.0-0.4) X10*3/uL Baso # (Auto) 0.1 (0.0-0.2) X10*3/uL Abs Immat Gran (auto) 0.02 (0.00-0.03) X10*3/uL Absolute Neuts (auto) 5.0 (2.0-8.3) x10*3/uL Absolute Nucleated RBC 0.000 (0.0-0.012) X10*3/uL Nucleated RBC % (auto) 0.0 (0.0-0.2) /100WBC PT (10.0-13.1) SEC INR (0.9-1.1) Sodium (135-145) mmol/L Potassium (3.3-5.1) mmol/L Chloride (96-108) mmol/L Carbon Dioxide (22-29) mmol/L Anion Gap (12-20) BUN (9-16) mg/dL Creatinine (0.5-1.4) mg/dL Estim Creat Clear Calc Estimated GFR Random Glucose (60-115) mg/dL Calcium (8.4-10.2) mg/dL Magnesium (1.6-2.6) mg/dL Total Bilirubin (0.0-1.0) mg/dL AST (5-31) U/L ALT (0-31) U/L Alkaline Phosphatase (39-117) U/L Total Protein (6.5-8.0) g/dL Albumin (3.5-5.0) g/dL Lipase (8-78) U/L Beta HCG, Quant mIU/mL Urine Color Dark Yellow Urine Appearance Cloudy Urine pH 5.5 (5.0-9.0) Ur Specific [place] >= 1.030 H (1.005-1.025) Urine Protein 30 (1+) H (Neg-Trace) mg/dL Urine Glucose (UA) Negative (Negative) mg/dL Urine Ketones Trace (Negative) mg/dL Urine Blood Moderate (2+) H (Negative) Urine Nitrite Negative (Negative) Ur Leukocyte Esterase Negative (Negative) Urine RBC >20 H (0-2) /HPF Urine WBC 0-5 (0-5) /HPF Ur Squamous Epith Cells >20 (0-2) /HPF Urine Bacteria 3+ (None Seen) Hyaline Casts 0-2 (0-2) /LPF Influenza Type A (PCR) (Negative) Influenza Type B (PCR) (Negative) RSV RNA Qual (PCR) (Negative) SARS-CoV-2 RNA (RT-PCR) (Negative) <GINO Pires - Last Filed: 07/06/22 13:30> Lab Results 07/06/22 07/06/22 07/06/22 Range/Units 15:10 15:10 15:10 WBC (4.8-10.8) X10*3/uL RBC (4.20-5.50) X10*6/uL Hgb (12.0-16.0) g/dl Hct (37.0-47.0) % MCV (80.0-98.0) fL MCH (27.0-33.0) pg MCHC (31.0-35.0) g/dl RDW (11.0-16.0) % Plt Count (160-400) X10*3/uL MPV (9.4-12.3) fL Immature Gran % (Auto) (0.0-0.4) % Neut % (Auto) (45-73) % Lymph % (Auto) (20-40) % [place] % (Auto) (2-11) % Eos % (Auto) (0-4) % Baso % (Auto) (0-2) % Lymph # (Auto) (1.2-4.9) X10*3/uL [place] # (Auto) (0.1-1.2) X10*3/uL Eos # (Auto) (0.0-0.4) X10*3/uL Baso # (Auto) (0.0-0.2) X10*3/uL Abs Immat Gran (auto) (0.00-0.03) X10*3/uL Absolute Neuts (auto) (2.0-8.3) x10*3/uL Absolute Nucleated RBC (0.0-0.012) X10*3/uL Nucleated RBC % (auto) (0.0-0.2) /100WBC PT 13.5 H (10.0-13.1) SEC INR 1.2 H (0.9-1.1) Sodium 139 (135-145) mmol/L Potassium 3.7 (3.3-5.1) mmol/L Chloride 103 (96-108) mmol/L Carbon Dioxide 27 (22-29) mmol/L Anion Gap 13 (12-20) BUN 9 (9-16) mg/dL Creatinine 0.87 (0.5-1.4) mg/dL Estim Creat Clear Calc 79.4 Estimated GFR > 60 Random Glucose 82 (60-115) mg/dL Calcium 9.3 (8.4-10.2) mg/dL Magnesium 1.9 (1.6-2.6) mg/dL Total Bilirubin 0.3 (0.0-1.0) mg/dL AST 15 (5-31) U/L ALT 17 (0-31) U/L Alkaline Phosphatase 121 H (39-117) U/L Total Protein 7.2 (6.5-8.0) g/dL Albumin 4.4 (3.5-5.0) g/dL Lipase 22 (8-78) U/L Beta HCG, Quant < 2 mIU/mL Urine Color Urine Appearance Urine pH (5.0-9.0) Ur Specific [place] (1.005-1.025) Urine Protein (Neg-Trace) mg/dL Urine Glucose (UA) (Negative) mg/dL Urine Ketones (Negative) mg/dL Urine Blood (Negative) Urine Nitrite (Negative) Ur Leukocyte Esterase (Negative) Urine RBC (0-2) /HPF Urine WBC (0-5) /HPF Ur Squamous Epith Cells (0-2) /HPF Urine Bacteria (None Seen) Hyaline Casts (0-2) /LPF Influenza Type A (PCR) NEGATIVE (Negative) Influenza Type B (PCR) NEGATIVE (Negative) RSV RNA Qual (PCR) NEGATIVE (Negative) SARS-CoV-2 RNA (RT-PCR) NEGATIVE (Negative) 07/06/22 07/06/22 Range/Units 15:10 17:25 WBC 8.7 (4.8-10.8) X10*3/uL RBC 4.26 (4.20-5.50) X10*6/uL Hgb 12.6 (12.0-16.0) g/dl Hct 36.4 L (37.0-47.0) % MCV 85.4 (80.0-98.0) fL MCH 29.6 (27.0-33.0) pg MCHC 34.6 (31.0-35.0) g/dl RDW 12.5 (11.0-16.0) % Plt Count 347 (160-400) X10*3/uL MPV 8.5 L (9.4-12.3) fL Immature Gran % (Auto) 0.2 (0.0-0.4) % Neut % (Auto) 57.2 (45-73) % Lymph % (Auto) 32.2 (20-40) % [place] % (Auto) 6.7 (2-11) % Eos % (Auto) 3.0 (0-4) % Baso % (Auto) 0.7 (0-2) % Lymph # (Auto) 2.8 (1.2-4.9) X10*3/uL [place] # (Auto) 0.6 (0.1-1.2) X10*3/uL Eos # (Auto) 0.3 (0.0-0.4) X10*3/uL Baso # (Auto) 0.1 (0.0-0.2) X10*3/uL Abs Immat Gran (auto) 0.02 (0.00-0.03) X10*3/uL Absolute Neuts (auto) 5.0 (2.0-8.3) x10*3/uL Absolute Nucleated RBC 0.000 (0.0-0.012) X10*3/uL Nucleated RBC % (auto) 0.0 (0.0-0.2) /100WBC PT (10.0-13.1) SEC INR (0.9-1.1) Sodium (135-145) mmol/L Potassium (3.3-5.1) mmol/L Chloride (96-108) mmol/L Carbon Dioxide (22-29) mmol/L Anion Gap (12-20) BUN (9-16) mg/dL Creatinine (0.5-1.4) mg/dL Estim Creat Clear Calc Estimated GFR Random Glucose (60-115) mg/dL Calcium (8.4-10.2) mg/dL Magnesium (1.6-2.6) mg/dL Total Bilirubin (0.0-1.0) mg/dL AST (5-31) U/L ALT (0-31) U/L Alkaline Phosphatase (39-117) U/L Total Protein (6.5-8.0) g/dL Albumin (3.5-5.0) g/dL Lipase (8-78) U/L Beta HCG, Quant mIU/mL Urine Color Dark Yellow Urine Appearance Cloudy Urine pH 5.5 (5.0-9.0) Ur Specific [place] >= 1.030 H (1.005-1.025) Urine Protein 30 (1+) H (Neg-Trace) mg/dL Urine Glucose (UA) Negative (Negative) mg/dL Urine Ketones Trace (Negative) mg/dL Urine Blood Moderate (2+) H (Negative) Urine Nitrite Negative (Negative) Ur Leukocyte Esterase Negative (Negative) Urine RBC >20 H (0-2) /HPF Urine WBC 0-5 (0-5) /HPF Ur Squamous Epith Cells >20 (0-2) /HPF Urine Bacteria 3+ (None Seen) Hyaline Casts 0-2 (0-2) /LPF Influenza Type A (PCR) (Negative) Influenza Type B (PCR) (Negative) RSV RNA Qual (PCR) (Negative) SARS-CoV-2 RNA (RT-PCR) (Negative) <GINO Vazquez - Last Filed: 07/07/22 00:57> Radiology Impression Discussion of test interpretation with radiology: I have reviewed the radiologist's reading. <GINO Vazquez - Last Filed: 07/07/22 00:57> Radiologist Impression: EXAMINATION: CT ABDOMEN AND PELVIS WITHOUT CONTRAST? CLINICAL INFORMATION: Abdominal pain. Question C. difficile colitis? COMPARISON: None? TECHNIQUE: Multidetector volumetric imaging was performed from the superior aspect of the liver through the pubic symphysis. Sagittal and coronal reformatted images were obtained on the technologist's workstation.? This CT examination was performed using dose optimization techniques as appropriate, variously including the following: *Automated exposure control *Adjustment of mA and/or kV according to patient size (this includes techniques or standardized protocols for targeted exams where dose is matched to indication/reason for exam; i.e. extremities or head) *Use of iterative reconstruction technique DLP: 661 mGy-cm FINDINGS: LUNG BASES: Minimal subsegmental atelectasis in the right middle lobe. Multiple surgical clips in the left breast. Small 1.3 x 0.6 cm soft tissue nodule in the anterior left lower chest wall/medial breast on series 3 image 8, indeterminate.? LIVER, GALLBLADDER, AND BILIARY TREE: The liver is normal in size, shape, and attenuation. No focal hepatic lesion or biliary ductal dilatation is present. The gallbladder is unremarkable with no evidence of radiopaque gallstones, gallbladder wall thickening, or obvious pericholecystic inflammatory changes.? PANCREAS: Unremarkable.? SPLEEN: Unremarkable.? ADRENAL GLANDS: Small subcentimeter nodule in the right adrenal gland, likely benign adenoma. Normal left adrenal gland.? KIDNEYS AND URETERS: The kidneys are normal in size, shape, and attenuation. No hydronephrosis, hydroureter, or calculi seen. No perinephric stranding. ? BLADDER: Unremarkable.? GASTROINTESTINAL TRACT: Mural thickening of the left colon extending from the splenic flexure to the rectum. Unclear as to whether or not this represents true mural thickening versus limited distention. There does appear to be minimal hazy pericolonic fat stranding and slight prominence of pericolonic vessels. More proximal colon does not appear thick walled. No dilated bowel loops. Appendix is prominent in caliber measuring up to 0.7 cm in diameter. No surrounding inflammatory change to suggest acute appendicitis. No ascites or free air. ABDOMINAL WALL: No significant hernia is appreciated.? LYMPH NODES: No lymphadenopathy. VASCULAR: Unremarkable. PELVIC VISCERA: Status post hysterectomy. Trace free pelvic fluid.? OSSEOUS STRUCTURES: No acute fracture or suspicious osseous lesion.? CT/CT abdomen pelvis wo IV con IMPRESSION: ? 1.? Apparent mild thickening of the left colon extending from the splenic flexure to the rectum. Unclear as to whether or not this represents true mural thickening versus limited distention. There does appear to be minimal pericolonic fat stranding and slight prominence of pericolonic vessels. Cannot exclude mild colitis. 2.? No other acute intra-abdominal process identified. 3.? Small 1.3 x 0.6 cm soft tissue nodule in the anterior left lower chest wall/medial breast, indeterminate. Correlate clinically and with mammographic workup as indicated. Finding was not seen on comparison chest CT 05/01/2017. Dictated By: Amrit Whitehead Signed By: Electronically signed by Amrit Whitehead 07/06/22 1517 <GINO Vazquez - Last Filed: 07/07/22 00:57> Independent Historian Clinical information obtained from an independent historian. History obtained from or confirmed by: Other (daughter) <Pooja DavisGINO - Last Filed: 07/07/22 00:57> Discharge Plan Discharge Clinical Impression: C. difficile colitis <GINO Pires Last Filed: 07/06/22 13:30> Patient Disposition: Home, Self-Care <GINO iPres Last Filed: 07/06/22 13:30> Instructions: C. Diff (Clostridioides Difficile) Infection (ED) <GINO Pires Last Filed: 07/06/22 13:30> Additional Instructions: Follow up with your primary care provider. Return to the emergency department immediately if your symptoms worsen or if you develop any dizziness, shortness of breath, difficulty breathing, chest pain, blurry vision, loss of vision, nausea, vomiting, abdominal pain, fever, chills, back pain, or any other complaints. <GINO Pires Last Filed: 07/06/22 13:30> Prescriptions: New vancomycin 125 mg capsule 125 mg PO QID 10 Days Qty: 40 0RF No Action atorvastatin 20 mg tablet 20 mg PO DAILY Qty: 90 1RF lamotrigine 150 mg tablet 150 mg PO BID 90 Days Qty: 180 1RF levetiracetam 1,000 mg tablet 1,000 mg PO BID Qty: 60 2RF Trulicity 0.75 mg/0.5 mL pen injector 0.75 mg subcut QWEEK Qty: 2 1RF (DME) lancets [FreeStyle Lancets] 28 gauge misc See Rx Instructions .Route Qty: 100 4RF Rx Instructions: As directed checks 4 X/day clindamycin HCl 150 mg capsule 150 mg PO TID Qty: 21 0RF aspirin [Aspir-Siri] 325 mg tablet,delayed release (DR/EC) 325 mg PO DAILY Rx Instructions: Every other day multivitamin [One-A-Day Essential] Tablet 1 tab PO DAILY lisinopril 2.5 mg tablet 2.5 mg PO DAILY Rx Instructions: Every other day (DME) blood-glucose meter [Accu-Chek Cindy Plus Meter] Misc See Rx Instructions .Route Qty: 1 0RF Rx Instructions: As directed (DME) blood-glucose meter [FreeStyle Lite Meter] Kit See Rx Instructions .Route Qty: 1 0RF Rx Instructions: As directed checks 4 X/day (DME) FreeStyle Lite Strips Strip See Rx Instructions .Route Qty: 100 5RF Rx Instructions: As directed checks 4 X/day peg 3350-electrolytes [Golytely] 236-22.74-6.74 -5.86 gram recon soln 240 ml PO Q10M 1 Days Qty: 4000 0RF Rx Instructions: until fecal effluent is clear; do not exceed a total volume of 2,000 mL sodium,potassium,mag sulfates [Suprep Bowel Prep Kit] 17.5-3.13-1.6 gram recon soln 480 ml PO .COMPLEX Qty: 354 0RF Rx Instructions: 480 mL orally; pT PREFERS THIS PREP SO PLEASE DISREGARD THE GO LYTELY <GINO Pires - Last Filed: 07/06/22 13:30> Referrals: [facility] [place] [facility] [Provider Group] (Call to establish and follow up a GI specialist. ) Estephania Padilla, PRODUCTION SPECIALIST [Primary Care Provider] - <GINO Pires - Last Filed: 07/06/22 13:30> Interventions: ED Discharge Assessment Last Done: 07/06/22 18:29 <GINO Pires - Last Filed: 07/06/22 13:30> Discharge Date/Time: 07/06/22 18:29 <GINO Pires - Last Filed: 07/06/22 13:30> Print Language: Prydeinig <GINO Pires - Last Filed: 07/06/22 13:30>
[2022-07-06 15:19] LABS: Appearance Urine Cloudy; Color Urine Dark Yellow; Glucose Urine UA Negative (Negative); Leukocyte Esterase Urine Negative (Negative); Nitrite Urine Negative (Negative); PH 5.5 (5.0-9.0); Specific Gravity - Urine >= 1.030 (1.005-1.025); UMIC TRIGGER UACC YES; Urine Blood Moderate (2+) (Negative); Urine Ketones Trace mg/dL (Negative); Urine Protein 30 (1+) mg/dL (Neg-Trace)
[2022-07-06 15:24] LABS: Bacteria Urine 3+ (None Seen); Hyaline Casts Urine 0-2 /LPF (0-2); RBC Urine >20 /HPF (0-2); Squamous Epithelial Cell Urine >20 /HPF (0-2); WBC Urine 0-5 /HPF (0-5)
[2022-07-06 15:26] LABS: INTERNATIONAL NORM RATIO 1.2 (0.9-1.1); Prothrombin Time 13.5 SEC (10.0-13.1)
--- NOTE | 2022-07-06 15:52 | PC.NURSE ---
pt presents via WC with dtr at bedside. pt has PMHx of CVA with hemiparesis, sts she noticed mucus in her stool since recent Abx tx. Pt initially thought that this was blood, however the dtr suspects thia may have just been mucus. pt a&o at her baseline, resting quietly NAD.
[2022-07-06 15:54] LABS: Alanine Aminotransferase 17 U/L (0-31); Albumin Level 4.4 g/dL (3.5-5.0); Alkaline Phosphatase 121 U/L (39-117); Anion Gap 13 (12-20); Aspartate Amino Transferase 15 U/L (5-31); Bilirubin Total 0.3 mg/dL (0.0-1.0); Blood Urea Nitrogen 9 mg/dL (9-16); Calcium 9.3 mg/dL (8.4-10.2); Carbon Dioxide 27 mmol/L (22-29); Chloride 103 mmol/L (96-108); Creatinine Clr Calc Pharmacy 79.4; Estimated Glomerular Filt Rate > 60; Glucose Random 82 mg/dL (60-115); HCG Quantitative < 2 mIU/mL; Lipase 22 U/L (8-78); Magnesium 1.9 mg/dL (1.6-2.6); Potassium 3.7 mmol/L (3.3-5.1); Sodium 139 mmol/L (135-145); Total Protein 7.2 g/dL (6.5-8.0)
[2022-07-06 15:57] LABS: Influenza A PCR NEGATIVE (Negative); Influenza B PCR NEGATIVE (Negative); Resp Syncy Virus RNA Qual PCR NEGATIVE (Negative); SARS COV2 PCR INHOUSE NEGATIVE (Negative)
[2022-07-06 18:05] LABS: MANUAL DIFF FLAG NO
[2022-07-06 18:10] LABS: Basophils Absolute Auto 0.1 X10*3/uL (0.0-0.2); Basophils Percent Auto 0.7 % (0-2); Eosinophils Absolute Auto 0.3 X10*3/uL (0.0-0.4); Hematocrit 36.4 % (37.0-47.0); Hemoglobin 12.6 g/dl (12.0-16.0); Imm Gran Abs Auto 0.02 X10*3/uL (0.00-0.03); Imm Gran Pct Auto 0.2 % (0.0-0.4); Lymphocytes Absolute Auto 2.8 X10*3/uL (1.2-4.9); Lymphocytes Percent Auto 32.2 % (20-40); Mean Corpuscular HGB Conc 34.6 g/dl (31.0-35.0); Mean Corpuscular Hemoglobin 29.6 pg (27.0-33.0); Mean Corpuscular Volume 85.4 fL (80.0-98.0); Mean Platelet Volume 8.5 fL (9.4-12.3); Monocytes Absolute Auto 0.6 X10*3/uL (0.1-1.2); Monocytes Percent Auto 6.7 % (2-11); Neutrophils Percent Auto 57.2 % (45-73); Platelet Count 347 X10*3/uL (160-400); Red Blood Count 4.26 X10*6/uL (4.20-5.50); Red Cell Distribution Width 12.5 % (11.0-16.0); White Blood Count 8.7 X10*3/uL (4.8-10.8)
== END 2022-07-06 18:29 | disposition home or self-care (01) ==
PROVIDERS: Physician Assistant Medical; Emergency Provider Emergency Medicine; PCP Nurse Practitioner Family
DX: A04.72 Enterocolitis due to Clostridium difficile, not specified as recurrent (principal); R10.31 Right lower quadrant pain; Z20.822 Contact with and (suspected) exposure to COVID-19; Z79.899 Other long term (current) drug therapy
CPT/HCPCS: 0241U; 36415; 74176; 80053; 81001; 83690; 83735; 84702; 85025; 85610; 99283

== ENCOUNTER 2022-07-29 16:17 | Outpatient (REF) | payer MEDICARE, MEDICAID, SELFPAY ==
[2022-07-29 17:21] LABS: Hematocrit 38.2 % (37.0-47.0); Mean Corpuscular Hemoglobin 29.4 pg (27.0-33.0); Mean Corpuscular Volume 86.4 fL (80.0-98.0); Mean Platelet Volume 8.3 fL (9.4-12.3); Platelet Count 318 X10*3/uL (160-400); Red Blood Count 4.42 X10*6/uL (4.20-5.50); Red Cell Distribution Width 12.2 % (11.0-16.0); White Blood Count 6.8 X10*3/uL (4.8-10.8)
[2022-07-29 17:33] LABS: Estimated Average Glucose 126 mg/dL
[2022-07-29 17:40] LABS: Alanine Aminotransferase 19 U/L (0-31); Albumin Level 4.5 g/dL (3.5-5.0); Alkaline Phosphatase 108 U/L (39-117); Anion Gap 13 (12-20); Aspartate Amino Transferase 18 U/L (5-31); Bilirubin Total 0.3 mg/dL (0.0-1.0); Blood Urea Nitrogen 15 mg/dL (9-16); Calcium 9.5 mg/dL (8.4-10.2); Carbon Dioxide 28 mmol/L (22-29); Chloride 104 mmol/L (96-108); Cholesterol 150 mg/dL; Estimated Glomerular Filt Rate 59; Glucose Random 121 mg/dL (60-115); HDL Cholesterol 35 mg/dL; LDL Cholesterol Calculated 97 mg/dl; Sodium 141 mmol/L (135-145); Total Protein 7.4 g/dL (6.5-8.0); Triglycerides 91 mg/dL
== END 2022-07-29 16:18 | disposition home or self-care (01) ==
LOC: HO.LAB 16:17
PROVIDERS: PCP Nurse Practitioner Family; Visit Provider Nurse Practitioner
DX: B37.31 Acute candidiasis of vulva and vagina (principal); A04.72 Enterocolitis due to Clostridium difficile, not specified as recurrent; R56.9 Unspecified convulsions; E78.5 Hyperlipidemia, unspecified; I10 Essential (primary) hypertension; I69.351 Hemiplegia and hemiparesis following cerebral infarction affecting right dominant side; E11.9 Type 2 diabetes mellitus without complications; Z79.4 Long term (current) use of insulin
CPT/HCPCS: 36415; 80053; 80061; 83036; 85027; 99212

== ENCOUNTER 2022-08-01 10:42 | Outpatient (REF) | payer MEDICARE, MEDICAID, SELFPAY | END 2022-08-01 10:43 | disposition home or self-care (01) | LOC: HO.LNP 10:42 | PROVIDERS: Visit Provider Nurse Practitioner | DX: Z13.89 Encounter for screening for other disorder (principal) | CPT/HCPCS: 87493 ==

== ENCOUNTER 2022-09-10 07:45 | Day surgery (SDC) | payer MEDICARE, MEDICAID, SELFPAY ==
[2022-09-03 20:59] VITALS: BMI 28.3
--- NOTE | 2022-09-10 06:49 | P.HPSUR_ITS ---
Pre-Procedural Eval Section A Date of Service: 09/10/22 Section B Chief Complaint: Encounter for screening for malignant neoplasm of Relevant Family History (Specify if Yes): No Relevant Social History: None Present Medications: see Short Stay Collaborative assessment Medical History: Significant History ( CVA with right sided weakness, IDDM, HLD, and HTN ) History of Previous Operations: Relevant previous surgery/procedure and date(s) (H/O colonoscopy History of partial hysterectomy History of thyroid surgery) Allergies: Allergies Allergy/AdvReac Type Severity Reaction Status Date / Time latex [LATEX] Allergy Intermediate Hives Verified 09/04/22 15:39 erythromycin base Allergy Unknown UNKNOWN Verified 09/04/22 15:39 [ERYTHROMYCIN BASE] Penicillins [PENICILLINS] Allergy Unknown UNKNOWN Verified 09/04/22 15:39 Review of Systems Sugical H&P ROS: Negative: Constitution, Cardiovascular, Respiratory, Neurological, Psychiatric, Hem-Onc, Allergic/Immunologic, Gastrointestinal, Genitourinary, Musculoskeletal, Integumentary, Endocrine and Eyes/ Ears/Nose/Throat Exam Surgical H&P Exam: Normal: HEENT, Normal: Heart, Normal: Lungs, Normal: Extremities, Normal: Abdomen and Normal: Skin and Significant Findings: Neurological (right sided weakness) Plan Diagnosis/Plan: Unchanged I have reviewed the history and physical and performed a pertinent physical examination on my patient. No changes have occurred unless specified. Time Spent With Patient Time: Total time managing care of this patient today ____ minutes.
[2022-09-10 07:47] VITALS: BP 136/81; PULSE 90; RESP 18; TEMP 36.6; O2SAT 98
--- NOTE | 2022-09-10 08:10 | P.CONAN_ITS ---
HPI - Anesthesia Eval Consult details Narrative: 52 yo female patient for Colonoscopy PMFSH Active Problems Active Problems: All Active Problems (Updated 09/03/22 @ 21:02 by Miley Urias RN) Hypertension (Acute) Seizures (Acute) History of stroke (Acute) Hyperlipidemia (Acute) Diabetes mellitus (Acute) Screening for hypothyroidism (Acute) Hemiparesis (Acute) Right upper and lower extremity. Microalbuminuria due to type 2 diabetes mellitus (Acute) Screening for colon cancer (Acute) Adult general medical exam (Acute) Callus of foot (Acute) Pre-op examination (Acute) Mild aphasia (Acute) Screening for breast cancer (Acute) C. difficile colitis (Acute) Nodule of soft tissue (Acute) Vaginal keith (Acute) Past Medical History Medical History CVA (cerebral vascular accident) Diabetes Ecchymosis Elevated cholesterol Encounter to establish care Hx of cyst of breast Hypertension Mild aphasia Seizures Family History Family History Mother Bone cancer Hypertension Diabetes Father Diabetes Hypertension Family history of problems with anesthesia: No Surgical History Surgical History (Updated 09/10/22 @ 08:36 by Katlin Mckeon MD) History of partial hysterectomy History of thyroid surgery History of Problems with Anesthesia: No Social History Social History Housing: Apartment Patient Tobacco Use Status: Never used Tobacco e-Cigarette/Vaping Use: Never Used Second Hand Smoke Exposure: No Use of substances other than those prescribed or required for medical reasons: No Are you DNR?: No Advance Directives: No Advance Directives Information Provided: Yes Advance Directives on File: No Recently lost weight without trying: No Nutrition Risks: No Nutritional Risk Current occupational status: unemployed Cognitive needs: Yes (cane ) Hearing needs: No Vision needs: Yes (glasses) Meds Allergies Allergy/AdvReac Type Severity Reaction Status Date / Time latex [LATEX] Allergy Intermediate Hives Verified 09/04/22 15:39 erythromycin base Allergy Unknown UNKNOWN Verified 09/04/22 15:39 [ERYTHROMYCIN BASE] Penicillins [PENICILLINS] Allergy Unknown UNKNOWN Verified 09/04/22 15:39 Home Medications Medication Instructions Recorded Confirmed Last Taken Type aspirin 325 mg tablet,delayed 325 mg PO DAILY 11/27/21 09/04/22 Unknown History release (Aspir-Siri) lisinopril 2.5 mg tablet 2.5 mg PO DAILY 11/27/21 09/04/22 Unknown History multivitamin (One-A-Day Essential 1 tab PO DAILY 11/27/21 09/04/22 Unknown Hi story tablet) levetiracetam 1,000 mg tablet 1,000 mg PO BID 07/29/22 09/04/22 Unknown History Exam Exam Date and Time: September 10, 2022 0810 Height,Weight and Vital Signs: Height 5 ft 5 in Weight 77.111 kg Last Vital Signs Temp 98 F 09/10/22 07:47 Pulse 90 09/10/22 07:47 Resp 18 09/10/22 07:47 BP 136/81 09/10/22 07:47 Pulse Ox 98 09/10/22 07:47 O2 Del Method 09/10/22 07:47 Pertinent Lab Results Pertinent Lab Results: POC 105mg/dL Airway Mallampati Class: II TM Dist: >3cm Neck ROM: Full Loose/Missing/Broken Teeth: No (Denies broken, loose, missing teeth) Heart: RRR Lungs: CTAB Assessment and Plan Assessment Anesthesia Assessment: Anesthesia Plan Discussed and Chart Reviewed Final Anesthetic Review Family History of Problems with Anesthesia: No History of Problems with Anesthesia: No NPO: Yes ASA Class: III Final Preanesthetic Review: No Changes in Pt Med Stat, Meds/Allgs Chart Reviewed, Consent Obtained/Reviewed and Anes Risks/Benef Reviewed Patient Risk: Intermediate Procedure Risk: Low Assessment/Block/Sedation in SS: Assess/Block/Sedation-SS Anesthetic Plan Anesthetic Plan: MAC: Disposition: Standard PACU
[2022-09-10] MEDS: Lactated Ringers 1,000 ML 100 ML IVCONT (08:16)
--- NOTE | 2022-09-10 08:34 | W.PM.OPN ---
Operative Note Operative Note Date of Service: 09/10/22 Narrative: Operative Information Procedure Description: Colonoscopy Indication: screening Anesthesia: MAC COLONOSCOPY Instrument: Olympus variable stiffness pediatric scope 190L Colonoscopy Monitoring: Vital signs and clinical assessment, continuous EKG monitoring, Pulse oximetry, Carbon Dioxide monitoring and blood pressure monitoring were done throughout the procedure. Colon withdrawal time was 20 minutes. Procedure: The patient was placed in the left lateral decubitis position and pre-procedure medications were administered. After a digital rectal examination of the ano-rectum, the video colonoscope was inserted into the rectum and advanced through the colon to the cecum/TI. The colonoscope was slowly withdrawn in a retrograde panoramic fashion and the colon mucosa was carefully examined including a retroflexed view of the rectum. Findings and interventions are described below. Procedure Difficulty: moderate due to looping Findings: Terminal Ileum-normal Cecum:normal Ascending Colon: normal Transverse Colon -normal Descending Colon:normal Sigmoid Colon: normal Rectum: Retroflexion with small internal hemorrhoids, grade I Anorectum - normal Colon preparation: [place] Bowel Preparation Scale Right colon; 2 Transverse colon: 2 Left colon; 1-2 (0 = Unprepared colon segment with mucosa not seen due to solid stool that cannot be cleared. 1 = Portion of mucosa of the colon segment seen, but other areas of the colon segment not well seen due to staining, residual stool and/or opaque liquid. 2 = Minor amount of residual staining, small fragments of stool and/or opaque liquid, but mucosa of colon segment seen well. 3 = Entire mucosa of colon segment seen well with no residual staining, small fragments of stool or opaque liquid) Impression and Post Procedure Diagnosis: internal hemorrhoids Plan: High fiber diet leaflet Avoid straining at stool, epsom salts and sitz bath, anusol supps or cream Repeat Colonoscopy in 5 years due to fair left sided prep or earlier if clinically indicated Above findings were reviewed with the patient and relevant handouts were provided if indicated.
[2022-09-10 09:16] VITALS: BP 101/60; PULSE 87; RESP 18; TEMP 37.1; O2SAT 100
[2022-09-10 09:31] VITALS: BP 125/78; PULSE 87; RESP 18; TEMP 37.4; O2SAT 100
[2022-09-10 09:46] VITALS: BP 134/83; PULSE 82; RESP 18; TEMP 37.3; O2SAT 99
[2022-09-10 10:21] LABS: Glucose, Whole Blood 104 mg/dL (60-115)
== END 2022-09-10 11:02 | disposition home or self-care (01) ==
PROVIDERS: PCP Nurse Practitioner Family; Visit Provider Internal Medicine Gastroenterology
PROC: 0DJD8ZZ Inspection of Lower Intestinal Tract, Via Natural or Artificial Opening Endoscopic (ICD-10-PCS; CPT 45378; principal; 2022-09-10 08:30)
DX: Z12.11 Encounter for screening for malignant neoplasm of colon (principal); K64.0 First degree hemorrhoids; I69.351 Hemiplegia and hemiparesis following cerebral infarction affecting right dominant side; I10 Essential (primary) hypertension; R56.9 Unspecified convulsions; E78.5 Hyperlipidemia, unspecified; E11.9 Type 2 diabetes mellitus without complications; Z79.4 Long term (current) use of insulin; Z88.0 Allergy status to penicillin; Z91.040 Latex allergy status
CPT/HCPCS: G0121; 82947

== ENCOUNTER 2022-09-29 14:50 | Outpatient (REF) | payer MEDICARE, MEDICAID, SELFPAY ==
--- NOTE | ~2022-09-29 | MM_ITS ---
EXAMINATION: MM SCREENING DIGITAL BREAST TOMOSYNTHESIS, BILATERAL CLINICAL INFORMATION: Screening. Asymptomatic. The lifetime risk of breast cancer based on the Tyrer-Cuzick Model is 6.2%. COMPARISON: Mammography: 09/23/2021 TECHNIQUE: Digital breast tomosynthesis is performed in both the craniocaudal and mediolateral oblique views along with computer-aided detection (CAD). Synthesized 2D images are generated from the tomosynthesis. FINDINGS: The breasts are heterogeneously dense, which may obscure small masses (ACR BI-RADS breast composition Category c). There is waxing and waning of circumscribed densities within the right breast consistent with cysts. Within the deep medial aspect of the left breast there is a 1 cm lobular density for which further evaluation with spot compression view is recommended. Patient status post previous excisional biopsy of the left breast with associated scarring and clips in place. MM/MM tomosynthesis screening BI IMPRESSION: Lobular density not fully evaluated about the deep medial aspect of the left breast for which further evaluation with spot compression view and ultrasound is recommended. ASSESSMENT: BI-RADS 0: Incomplete - Need Additional Imaging Evaluation RECOMMENDATION: 1. Additional views of the left breast. 2. Targeted ultrasound if warranted after review of the additional views. 3. Radiology department staff will contact the patient for additional imaging. This patient's information was entered into a reminder system with a target due date for their next mammogram.
== END 2022-09-29 14:51 | disposition home or self-care (01) ==
LOC: HO.MAMMO 14:50
PROVIDERS: PCP Nurse Practitioner Family; Visit Provider Nurse Practitioner Family
DX: Z12.31 Encounter for screening mammogram for malignant neoplasm of breast (principal)
CPT/HCPCS: 77063; 77067

== ENCOUNTER → 2022-10-22 15:27 | Outpatient (BNVA) | payer MEDICARE, MEDICAID, SELFPAY | PROVIDERS: PCP Nurse Practitioner Family; Visit Provider Nurse Practitioner | DX: Z98.890 Other specified postprocedural states (principal) | CPT/HCPCS: 99212 ==

== ENCOUNTER → 2022-11-04 15:33 | Outpatient (BNVA) | payer MEDICARE, MEDICAID, SELFPAY | PROVIDERS: PCP Nurse Practitioner Family; Referring Provider Nurse Practitioner Family; Visit Provider Surgery | DX: L90.5 Scar conditions and fibrosis of skin (principal) | CPT/HCPCS: 99202 ==

== ENCOUNTER 2022-11-07 15:00 | Outpatient (REF) | payer MEDICARE, MEDICAID, SELFPAY ==
--- NOTE | ~2022-11-07 | MM_ITS ---
EXAMINATION: MM DIAGNOSTIC DIGITAL BREAST TOMOSYNTHESIS, LEFT TARGETED LEFT BREAST ULTRASOUND CLINICAL INFORMATION: Patient status post left lumpectomy anteriorly. Lobular density on craniocaudal view partially imaged about the deep medial aspect. COMPARISON: Mammography: 09/29/2022 and only one study from [facility] from 09/23/2021. 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 TECHNIQUE: Digital breast tomosynthesis is performed. 2D images are generated from the tomosynthesis. The following views are obtained: Spot compression views in craniocaudal and cleavage images. FINDINGS: The breasts are heterogeneously dense, which may obscure small masses (ACR BI-RADS breast composition Category c). Additional views are able to partially image a lobular density about the deep lateral aspect measuring approximately 1.5 x 0.8 cm in size. Targeted ultrasound evaluation demonstrated an isoechoic lobular solid mass at the 7 o'clock position which has internal vascularity. No distal sound shadowing was appreciated. The lesion measures approximately 1.4 x 0.8 x 1.0 cm in size. Since I do not know if this may be a stable finding or something new we will again attempt to obtain prior mammograms and ultrasounds from [facility]. If this finding is not stable then ultrasound-guided core biopsy is recommended. Results are discussed with the patient at time of visit. MM/MM tomosynthesis added views L IMPRESSION: Solid mass 7 o'clock position deep left breast for which ultrasound-guided core biopsy is recommended unless this can be shown to be a stable finding on the prior studies which were not made available at time of this study. ASSESSMENT: BI-RADS 0: Incomplete - Need old studies for comparison. RECOMMENDATION: Obtain old studies performed including mammography from before 09/23/2021 as well as previous ultrasound examinations that were performed. If lesion cannot be shown to be a stable finding or if old studies cannot be made available then ultrasound-guided core biopsy is recommended.
== END 2022-11-07 15:01 | disposition home or self-care (01) ==
LOC: HO.MAMMO 15:00
PROVIDERS: PCP Nurse Practitioner Family; Visit Provider Nurse Practitioner Family
DX: R92.2 Inconclusive mammogram (principal)
CPT/HCPCS: 76642; 77061; 77065

== ENCOUNTER → 2022-12-04 15:38 | Outpatient (BNVA) | payer MEDICARE, MEDICAID, SELFPAY | PROVIDERS: PCP Nurse Practitioner Family; Visit Provider Surgery | DX: L90.5 Scar conditions and fibrosis of skin (principal); N63.20 Unspecified lump in the left breast, unspecified quadrant; R92.8 Other abnormal and inconclusive findings on diagnostic imaging of breast | CPT/HCPCS: 11900 ==

== ENCOUNTER 2022-12-10 08:13 | Outpatient (REF) | payer MEDICARE, MEDICAID, SELFPAY ==
--- NOTE | ~2022-12-10 | MM_ITS ---
EXAMINATION: ULTRASOUND GUIDED CORE BIOPSY BREAST, LEFT POST PROCEDURE DIGITAL MAMMOGRAM, LEFT CLINICAL INFORMATION: Solid macrolobulated mass parasternal posterior lower inner left breast, 1.5 cm. COMPARISON: Mammography 09/29/2022, 11/07/2022, ultrasound 11/07/2022, CTA chest 05/01/2017. FINDINGS: Proper informed consent is obtained from the patient after discussion of the procedure, potential risks and complications, and alternatives. Patient was given an opportunity for questions. The patient appeared to understand. The patient consented to the procedure and signed the consent form. GUIDANCE: Ultrasound-guided; aseptic technique. LESION: Macrolobulated solid mass posterior inferior medial parasternal left breast, possibly fibroadenoma, PASH, other. APPROACH: Oblique mediolateral. ANESTHESIA: 18 mL carbonated 1% lidocaine. DERMATOTOMY: Single skin arcadio dermatotomy performed. NEEDLE: 14-gauge Achieve core biopsy device with 13.5-gauge co-axial guide needle. CORES: 4. CLIP: HydroMARK; shape: butterfly. Clip deployment is seen within the periphery of the lesion during real-time ultrasound. Post deployment ultrasound images obtained. POST PROCEDURE UNILATERAL DIGITAL MAMMOGRAM: The post biopsy mammogram is performed in separate room using separate digital mammography equipment from the biopsy procedure. CC x2, ML, and MLO views are obtained. There are scattered areas of fibroglandular density (breast composition category: b). Breast tissue composition borders on heterogeneously dense. The mass and clip marker are beyond the [id number] on the images. There are old surgical clips again seen anterior left breast. No gross hematoma. The patient tolerated the procedure well. No immediate complications. Home instructions reviewed with the patient and family. Final pathology results are pending. MM/MM diagnostic mammo unilat LT IMPRESSION: 1. Status post ultrasound-guided core biopsy left breast. 2. Clip placed: HydroMARK; shape: butterfly. 3. Pathology pending. An addendum report will be issued.
[2022-12-10] MEDS: Lidocaine HCl 1 % 20 ML VIAL 18 ML SUBCUT (09:14)
[2022-12-10] MEDS: Sodium Bicarbonate 8.4% 50 MEQ/50 ML VIAL SUBCUT (09:15)
== END 2022-12-10 08:14 | disposition home or self-care (01) ==
LOC: HO.MAMMO 08:13
PROVIDERS: PCP Nurse Practitioner Family; Visit Provider Surgery
DX: R92.8 Other abnormal and inconclusive findings on diagnostic imaging of breast (principal); N63.24 Unspecified lump in the left breast, lower inner quadrant
CPT/HCPCS: 19083; 77062; 77065; 88305

== ENCOUNTER → 2022-12-18 11:08 | Outpatient (BNVA) | payer MEDICARE, MEDICAID, SELFPAY | PROVIDERS: PCP Nurse Practitioner Family; Visit Provider Surgery | DX: R92.8 Other abnormal and inconclusive findings on diagnostic imaging of breast (principal); N63.20 Unspecified lump in the left breast, unspecified quadrant; L90.5 Scar conditions and fibrosis of skin | CPT/HCPCS: 99212 ==

== ENCOUNTER 2022-12-31 07:50 | Emergency (ER) | payer MEDICARE, MEDICAID, SELFPAY ==
--- NOTE | ~2022-12-31 | XR_ITS ---
EXAMINATION: XR CHEST CLINICAL INFORMATION: Chest pain COMPARISON: 06/09/2022 TECHNIQUE: 2 views of the chest were obtained. FINDINGS: No significant abnormality is noted involving the heart, lungs, mediastinum, bony thorax or soft tissues. XR/XR chest 2V IMPRESSION: Unremarkable examination, without interval change.
--- NOTE | 2022-12-31 07:51 | ECG_ITS ---
Test Reason : cp Blood Pressure : / mmHG Vent. Rate : 076 BPM Atrial Rate : 076 BPM P-R Int : 142 ms QRS Dur : 072 ms QT Int : 362 ms P-R-T Axes : 044 024 032 degrees QTc Int : 407 ms Normal sinus rhythm Nonspecific T wave abnormality Abnormal ECG When compared with ECG of 10-JUN-2022 11:04, No significant change was found Referred By: Generic ED Physician Electronically Signed By:BERKLEY RUDOLPH MD
--- NOTE | 2022-12-31 07:54 | ED.GENADULT ---
HPI - General Adult General Chief complaint: Chest Pain Stated complaint: chest pain L side Time Seen by Provider: 12/31/22 07:54 Source: patient Mode of arrival: wheelchair Limitations: no limitations History of Present Illness HPI narrative: Patient is a 52 year old female with a history of stroke, HLD, HTN, DM, seizures, and left breast mass who presents today with central chest pain that started last night. She reports that the episode started after exercising. She describes chest pain as pleuritic, constant and stabbing, which worsens with movement, with expiration and with inspiration. Patient denies shortness of breath, fatigue, fever or chills. She reports no other concerns at this time. Onset (ago): day(s) Location: chest Radiation: other (left breast) Severity: mild Quality: stabbing Pain Consistency: constant Exacerbating factors: other (movement, inspiration and expiration) Associated symptoms: other (lightheadedness) Treatments prior to arrival: none Related Data Home Medications Medication Instructions Recorded Confirmed aspirin 325 mg tablet,delayed 325 mg PO DAILY 11/27/21 12/18/22 release (Aspir-Siri) lisinopril 2.5 mg tablet 2.5 mg PO DAILY 11/27/21 12/18/22 multivitamin (One-A-Day Essential 1 tab PO DAILY 11/27/21 12/18/22 tablet) Previous Rx's Medication Instructions Recorded blood-glucose meter (Accu-Chek #1 ea 01/23/22 Cindy Plus Meter) atorvastatin 20 mg tablet 20 mg PO DAILY #90 tabs 07/15/22 blood sugar diagnostic (FreeStyle #50 ea 07/25/22 Lite Strips) blood-glucose meter (FreeStyle #1 ea 07/25/22 Lite Meter kit) lancets 28 gauge (FreeStyle #100 ea 07/25/22 Lancets) lamotrigine 150 mg tablet 150 mg PO BID 90 days #180 tabs 09/03/22 levetiracetam 1,000 mg tablet 1,000 mg PO BID #180 tabs 10/06/22 dulaglutide 0.75 mg/0.5 mL 0.75 mg (0.5 mL) subcut QWEEK #2 mL 12/11/22 subcutaneous pen injector ([facility]) cyclobenzaprine 5 mg tablet 5 mg PO TID PRN muscle spasm 7 12/31/22 days #21 tabs Allergies Allergy/AdvReac Type Severity Reaction Status Date / Time latex [LATEX] Allergy Intermediate Hives Verified 12/31/22 08:02 erythromycin base Allergy Unknown UNKNOWN Verified 12/31/22 08:02 [ERYTHROMYCIN BASE] Penicillins [PENICILLINS] Allergy Unknown UNKNOWN Verified 12/31/22 08:02 Review of Systems Constitutional: Constitutional: Reports no additional constitutional complaints, Denies chills, Denies fever(s) and Denies night sweats Eyes: Eyes: Reports no additional eye complaints, Denies blurry vision, Denies change in vision, Denies diplopia, Denies eye discharge, Denies loss of vision and Denies eye pain ENT: Denies dizziness Cardiovascular: Cardiovascular: Reports no additional cardiovascular complaints, Reports chest pain, Denies lightheadedness, Denies Loss of Consciousness and Denies dyspnea Respiratory: Respiratory: Reports no additional respiratory complaints and Denies dyspnea Gastrointestinal: Gastrointestinal: Reports no additional gastrointestinal complaints, Denies abdominal pain, Denies melena, Denies hematochezia, Denies change in bowel habits and Denies change in stool character Genitourinary: Genitourinary: Denies hematuria, Denies urinary frequency, Denies dysuria, Denies urinary incontinence, Denies urinary hesitancy and Denies urinary urgency Musculoskeletal: Musculoskeletal: Reports no additional musculoskeletal complaints, Denies numbness and Denies tingling Neurologic: Denies dizziness, Denies loss of vision, Denies numbness and Denies tingling Psychiatric: Psychiatric: Reports no additional psychiatric complaints Endocrine: Endocrine: Reports no additional endocrine complaints Hematologic/Lymphatic: Hematologic/Lymphatic: Reports no additional hematologic/lymphatic complaints Allergic/Immunologic: Allergic/Immunologic: Reports no additional allergic/immunologic complaints [facility] Past Medical History Attestation statement: The following information was validated with the patient. Source: old records reviewed and nursing notes reviewed Medical History CVA (cerebral vascular accident) Diabetes Ecchymosis Elevated cholesterol Encounter to establish care Hx of cyst of breast Hypertension Mild aphasia Seizures Surgical History History of partial hysterectomy History of thyroid surgery Hx of colonoscopy Family History Family History Mother Bone cancer Hypertension Diabetes Father Diabetes Hypertension Maternal Aunt Breast cancer, Onset Age: 49 Social History Social History Housing: Apartment Patient Tobacco Use Status: Never used Tobacco e-Cigarette/Vaping Use: Never Used Second Hand Smoke Exposure: No Advance Directives: No Current occupational status: unemployed Cognitive needs: Yes (cane ) Hearing needs: No Vision needs: Yes (glasses) Physical Exam ED Vital Signs: Vital Signs - 24 hr 12/31/22 08:03 Temperature 98.8 F Pulse Rate 84 Blood Pressure 131/60 Pulse Oximetry 97 Oxygen Delivery Method Room Air BMI result Body Mass Index 29.9 Const General: cooperative, no acute distress, alert and awake Nutritional Appearance: well nourished Orientation/consciousness: patient oriented x3 Limitations: no limitations HENMT Head: Yes normal to inspection and Yes atraumatic Ears: hearing grossly normal bilaterally and external ears normal General nose exam: Normal external nose present, no nasal discharge noted and no epistaxis Face and sinus: Yes normal facial exam, No abrasion and No laceration Mouth: Normal oral and palatal mucosa present, no drooling and no muffled voice Eyes General: appearance normal, both eyes and all related structures Periorbital: periorbital findings normal Eyelids: Yes eyelids normal Conjunctivae: conjunctivae normal Pupils: Equal, round and reactive pupils present EOM: EOMs intact bilaterally Neck Neck: Yes normal visual inspection Chest Chest palpation & inspection: normal inspection of the chest Resp Effort & Inspection: normal respiratory effort and able to speak in complete sentences Auscultation: clear to auscultation bilaterally Cardio Palpation: other (chest wall tenderness upon palpation) Rate: regular rate Rhythm: regular rhythm Heart sounds: S1 normal heart sound present and S2 normal heart sound present GI Inspection: Yes normal to inspection Palpation (GI): Soft to palpation, not firm, nontender and no guarding Neuro General: patient oriented x3 Cranial nerves: Yes Equal, round and reactive pupils present Cognition (Neuro): normal cognition Motor exam (neuro): 5/5 motor strength present throughout Sensory Exam: Normal double simultaneous stimulation for sensation Coordination: [id number] test normal Extrem General: Yes normal to inspection Psych Appearance: grossly normal Mental Status: mental status grossly normal Affect: normal affect Attitude: cooperative Thought process: Normal thought process present Thought content: Normal thought content present Insight: Good insight present (Psych) Medications Administered Discontinued Medications Generic Name Dose Route Start Last Admin Trade Name Ean PRN Reason Stop Dose Admin Cyclobenzaprine HCl 5 mg 12/31/22 09:11 12/31/22 09:56 Cyclobenzaprine Hcl 5 Mg Tablet PO 12/31/22 09:12 5 mg ONCE ONE Administration Ketorolac Tromethamine 15 mg 12/31/22 09:11 12/31/22 09:58 Ketorolac Tromethamine 15 Mg/Ml Vial IM 12/31/22 09:12 15 mg ONCE ONE Administration Medical Decision Making Medical Decision Making [facility] Narrative: Patient is a 52 year old assigned female at with a history of stroke, HLD, HTN, DM, seizures, and left breast mass presenting to the emergency department today with central chest pain. Patient's physical exam was as noted in the physical exam portion of this chart. Patient's blood work was unremarkable. Patient's EKG was unremarkable. Patient's chest x-ray showed no acute process. I explained my physical exam findings as well as all test results to the patient. I answered all questions asked by the patient. I stressed the importance of the patient taking her medication as prescribed. I stressed the importance of the patient following up with her primary care provider. I stressed the importance of the patient returning to the emergency department immediately if her symptoms were to worsen or if she were to develop any dizziness, shortness of breath, difficulty breathing, chest pain, blurry vision, loss of vision, nausea, vomiting, abdominal pain, fever, chills, back pain, or any other complaints. Patient verbalized agreement and understanding with this treatment plan and discharge. Differential Diagnosis Differential Diagnoses: The differential diagnosis associated with the presentation includes chest wall pain Admission/Observation Consideration of admission/observation: Escalation of care including admission/observation considered Patient would have been admitted to the hospital had her work up had any findings where hospital admission was appropriate. Lab Data [facility] Lab Attestation statement: I reviewed the patient's lab results. My interpretation of these studies and their corresponding values is that they are grossly normal. 12/31/22 08:30 12/31/22 08:30 Labs: Lab Results 12/31/22 12/31/22 12/31/22 Range/Units 08:30 08:30 08:30 WBC 5.9 (4.8-10.8) X10*3/uL RBC 4.29 (4.20-5.50) X10*6/uL Hgb 12.7 (12.0-16.0) g/dl Hct 37.1 (37.0-47.0) % MCV 86.5 (80.0-98.0) fL MCH 29.6 (27.0-33.0) pg MCHC 34.2 (31.0-35.0) g/dl RDW 12.7 (11.0-16.0) % Plt Count 274 (160-400) X10*3/uL MPV 8.4 L (9.4-12.3) fL Immature Gran % (Auto) 0.2 (0.0-0.4) % Neut % (Auto) 63.0 (45-73) % Lymph % (Auto) 26.8 (20-40) % Hinds % (Auto) 5.9 (2-11) % Eos % (Auto) 3.6 (0-4) % Baso % (Auto) 0.5 (0-2) % Lymph # (Auto) 1.6 (1.2-4.9) X10*3/uL Hinds # (Auto) 0.4 (0.1-1.2) X10*3/uL Eos # (Auto) 0.2 (0.0-0.4) X10*3/uL Baso # (Auto) 0.0 (0.0-0.2) X10*3/uL Abs Immat Gran (auto) 0.01 (0.00-0.03) X10*3/uL Absolute Neuts (auto) 3.7 (2.0-8.3) x10*3/uL Absolute Nucleated RBC 0.000 (0.0-0.012) X10*3/uL Nucleated RBC % (auto) 0.0 (0.0-0.2) /100WBC Sodium 141 (135-145) mmol/L Potassium 3.8 (3.3-5.1) mmol/L Chloride 107 (96-108) mmol/L Carbon Dioxide 26 (22-29) mmol/L Anion Gap 12 (12-20) BUN 12 (9-16) mg/dL Creatinine 0.82 (0.5-1.4) mg/dL Estim Creat Clear Calc 86.5 Estimated GFR > 60 Random Glucose 141 H (60-115) mg/dL Calcium 10.0 (8.4-10.2) mg/dL Magnesium 1.7 (1.6-2.6) mg/dL Total Bilirubin 0.3 (0.0-1.0) mg/dL AST 13 (5-31) U/L ALT 16 (0-31) U/L Alkaline Phosphatase 100 (39-117) U/L Troponin I High Sens (<3.5-17.0) ng/L B-Natriuretic Peptide < 10 (<100) pg/mL Total Protein 7.2 (6.5-8.0) g/dL Albumin 4.0 (3.5-5.0) g/dL COVID-19 (SUBHASH) (Negative) COVID-19 Clin Com 12/31/22 12/31/22 Range/Units 08:30 08:30 WBC (4.8-10.8) X10*3/uL RBC (4.20-5.50) X10*6/uL Hgb (12.0-16.0) g/dl Hct (37.0-47.0) % MCV (80.0-98.0) fL MCH (27.0-33.0) pg MCHC (31.0-35.0) g/dl RDW (11.0-16.0) % Plt Count (160-400) X10*3/uL MPV (9.4-12.3) fL Immature Gran % (Auto) (0.0-0.4) % Neut % (Auto) (45-73) % Lymph % (Auto) (20-40) % Hinds % (Auto) (2-11) % Eos % (Auto) (0-4) % Baso % (Auto) (0-2) % Lymph # (Auto) (1.2-4.9) X10*3/uL Hinds # (Auto) (0.1-1.2) X10*3/uL Eos # (Auto) (0.0-0.4) X10*3/uL Baso # (Auto) (0.0-0.2) X10*3/uL Abs Immat Gran (auto) (0.00-0.03) X10*3/uL Absolute Neuts (auto) (2.0-8.3) x10*3/uL Absolute Nucleated RBC (0.0-0.012) X10*3/uL Nucleated RBC % (auto) (0.0-0.2) /100WBC Sodium (135-145) mmol/L Potassium (3.3-5.1) mmol/L Chloride (96-108) mmol/L Carbon Dioxide (22-29) mmol/L Anion Gap (12-20) BUN (9-16) mg/dL Creatinine (0.5-1.4) mg/dL Estim Creat Clear Calc Estimated GFR Random Glucose (60-115) mg/dL Calcium (8.4-10.2) mg/dL Magnesium (1.6-2.6) mg/dL Total Bilirubin (0.0-1.0) mg/dL AST (5-31) U/L ALT (0-31) U/L Alkaline Phosphatase (39-117) U/L Troponin I High Sens < 2.7 (<3.5-17.0) ng/L B-Natriuretic Peptide (<100) pg/mL Total Protein (6.5-8.0) g/dL Albumin (3.5-5.0) g/dL COVID-19 ([facility]BHASH) Negative (Negative) COVID-19 Clin Com See Note Independent Interpretation I performed an independent interpretation of an: EKG and Plain X-Ray Interpretation: Vent. Rate: 076 BPM ? ? Atrial Rate: 076 BPM P-R Int: 142 ms? QRS Dur: 072 ms QT Int: 362 ms ? ? ? P-R-T Axes: 044 024 032 degrees QTc Int: 407 ms ? Normal sinus rhythm Nonspecific T wave abnormality Abnormal ECG When compared with ECG of 10-JUN-2022 11:04, No significant change was found ? Electronically Signed By:DENNY OLIVA MD Dictated By: Denny Oliva MD Signed By: Electronically signed by Denny Oliva MD 12/31/22 1157 My interpretation is in agreement with the radiologist's impression of this imaging study. EXAMINATION: XR CHEST CLINICAL INFORMATION: Chest pain COMPARISON: 06/09/2022 TECHNIQUE: 2 views of the chest were obtained. FINDINGS: No significant abnormality is noted involving the heart, lungs, mediastinum, bony thorax or soft tissues. XR/XR chest 2V IMPRESSION: Unremarkable examination, without interval change. Dictated By: Scarlet Carrillo MD Signed By: Electronically signed by Scarlet Carrillo MD 12/31/22 0910 Discharge Plan Discharge Clinical Impression: Chest wall pain Patient Disposition: Home, Self-Care Instructions: Chest Wall Pain (ED) Additional Instructions: Follow up with your primary care provider. Return to the emergency department immediately if your symptoms worsen or if you develop any dizziness, shortness of breath, difficulty breathing, chest pain, blurry vision, loss of vision, nausea, vomiting, abdominal pain, fever, chills, back pain, or any other complaints. Prescriptions: New cyclobenzaprine 5 mg tablet 5 mg PO TID PRN (Reason: muscle spasm) 7 Days Qty: 21 0RF No Action atorvastatin 20 mg tablet 20 mg PO DAILY Qty: 90 1RF (DME) FreeStyle Lite Strips Strip See Rx Instructions .Route Qty: 50 5RF Rx Instructions: As directed checks 1 X/day (DME) blood-glucose meter [FreeStyle Lite Meter] Kit See Rx Instructions .Route Qty: 1 0RF Rx Instructions: As directed checks 1 X/day (DME) lancets [FreeStyle Lancets] 28 gauge misc See Rx Instructions .Route Qty: 100 4RF Rx Instructions: As directed checks 1 X/day lamotrigine 150 mg tablet 150 mg PO BID 90 Days Qty: 180 1RF levetiracetam 1,000 mg tablet 1,000 mg PO BID Qty: 180 0RF Trulicity 0.75 mg/0.5 mL pen injector 0.75 mg subcut QWEEK Qty: 2 3RF aspirin [Aspir-Siri] 325 mg tablet,delayed release (DR/EC) 325 mg PO DAILY Rx Instructions: Every other day multivitamin [One-A-Day Essential] Tablet 1 tab PO DAILY lisinopril 2.5 mg tablet 2.5 mg PO DAILY Rx Instructions: Every other day (DME) blood-glucose meter [Accu-Chek Cindy Plus Meter] Misc See Rx Instructions .Route Qty: 1 0RF Rx Instructions: As directed Referrals: [facility] [place] Family Medicine [Provider Group] (Call to establish and follow up with a primary care provider. If you already have a primary care provider, please follow up with them.) [facility] [place] [Provider Group] (Call to establish and follow up with a primary care provider. If you already have a primary care provider, please follow up with them.) [facility] [place] [facility] [Provider Group] (Call to establish and follow up with a primary care provider. If you already have a primary care provider, please follow up with them.) Interventions: ED Discharge Assessment Last Done: 12/31/22 10:12 Discharge Date/Time: 12/31/22 10:13 Print Language: Portuguese
[2022-12-31 08:03] VITALS: BP 131/60; PULSE 84; TEMP 37.1; O2SAT 97; BMI 29.9
[2022-12-31 08:34] LABS: MANUAL DIFF FLAG NO
[2022-12-31 08:36] LABS: Basophils Percent Auto 0.5 % (0-2); Eosinophils Absolute Auto 0.2 X10*3/uL (0.0-0.4); Eosinophils Percent Auto 3.6 % (0-4); Hematocrit 37.1 % (37.0-47.0); Hemoglobin 12.7 g/dl (12.0-16.0); Imm Gran Abs Auto 0.01 X10*3/uL (0.00-0.03); Imm Gran Pct Auto 0.2 % (0.0-0.4); Lymphocytes Absolute Auto 1.6 X10*3/uL (1.2-4.9); Lymphocytes Percent Auto 26.8 % (20-40); Mean Corpuscular HGB Conc 34.2 g/dl (31.0-35.0); Mean Corpuscular Hemoglobin 29.6 pg (27.0-33.0); Mean Corpuscular Volume 86.5 fL (80.0-98.0); Mean Platelet Volume 8.4 fL (9.4-12.3); Monocytes Absolute Auto 0.4 X10*3/uL (0.1-1.2); Monocytes Percent Auto 5.9 % (2-11); Neutrophils Absolute Auto 3.7 x10*3/uL (2.0-8.3); Platelet Count 274 X10*3/uL (160-400); Red Blood Count 4.29 X10*6/uL (4.20-5.50); Red Cell Distribution Width 12.7 % (11.0-16.0); White Blood Count 5.9 X10*3/uL (4.8-10.8)
[2022-12-31 08:52] LABS: Alanine Aminotransferase 16 U/L (0-31); Alkaline Phosphatase 100 U/L (39-117); Anion Gap 12 (12-20); Aspartate Amino Transferase 13 U/L (5-31); Bilirubin Total 0.3 mg/dL (0.0-1.0); Blood Urea Nitrogen 12 mg/dL (9-16); Carbon Dioxide 26 mmol/L (22-29); Chloride 107 mmol/L (96-108); Creatinine Clr Calc Pharmacy 86.5; Estimated Glomerular Filt Rate > 60; Glucose Random 141 mg/dL (60-115); Magnesium 1.7 mg/dL (1.6-2.6); Potassium 3.8 mmol/L (3.3-5.1); Sodium 141 mmol/L (135-145); Total Protein 7.2 g/dL (6.5-8.0)
[2022-12-31 08:54] LABS: COVID-19 Test Negative (Negative); IDNOW Serial# 55D5AD1C
[2022-12-31 08:56] LABS: B Type Natriuretic Peptide < 10 pg/mL (<100)
[2022-12-31 08:58] LABS: Troponin-I High Sensitivity < 2.7 ng/L (<3.5-17.0)
[2022-12-31] MEDS: Cyclobenzaprine HCl 5 MG TABLET PO (09:56)
[2022-12-31] MEDS: Ketorolac Tromethamine 15 MG/ML VIAL IM (09:58)
== END 2022-12-31 10:13 | disposition home or self-care (01) ==
PROVIDERS: Physician Assistant Medical; Emergency Provider Internal Medicine
DX: R07.89 Other chest pain (principal); I10 Essential (primary) hypertension; E11.9 Type 2 diabetes mellitus without complications; Z99.3 Dependence on wheelchair; Z86.73 Personal history of transient ischemic attack (TIA), and cerebral infarction without residual deficits; Z20.822 Contact with and (suspected) exposure to COVID-19
CPT/HCPCS: 36415; 71046; 80053; 83735; 83880; 84484; 85025; 87635; 93005; 96372; 99283; 99284; J1885

== ENCOUNTER 2023-02-03 12:58 | Outpatient (AMB) | payer MEDICARE, MEDICAID, SELFPAY ==
[2023-02-03 13:00] VITALS: BP 134/80; PULSE 90; O2SAT 98; BMI 29.8
--- NOTE | 2023-02-03 13:00 | MHC.PC.OV ---
Vital Signs 02/03/23 13:00 Height 5 ft 5 in Weight 179 lb BMI 29.8 BP 134/80 Blood Pressure Location Lt brachial Position Sitting Pulse 90 Pulse Source Pulse Oximeter Temp Source Skin Pulse Oximetry (%) 98 Oxygen Delivery Method Room Air Intake Visit Reasons: Annual Exam Intake Note: Patient is here today for a physical. Medical Device Assembler Required: No Allergies latex [LATEX] Allergy (Intermediate, Verified 02/03/23 13:10) Hives erythromycin base [ERYTHROMYCIN BASE] Allergy (Unknown, Verified 02/03/23 13:10) UNKNOWN Penicillins [PENICILLINS] Allergy (Unknown, Verified 02/03/23 13:10) UNKNOWN Medication List - Last Reconciled 02/03/23 by CARINA Spencer aspirin (Aspir-Siri) 325 mg PO DAILY atorvastatin 20 mg PO DAILY blood sugar diagnostic (FreeStyle Lite Strips) As directed checks 1 X/day blood-glucose meter (Accu-Chek Cindy Plus Meter) As directed blood-glucose meter (FreeStyle Lite Meter kit) As directed checks 1 X/day cyclobenzaprine 5 mg PO TID PRN 7 days dulaglutide (Trulicity) 0.75 mg (0.5 mL) subcut QWEEK lamotrigine 150 mg PO BID 90 days lancets (FreeStyle Lancets) As directed checks 1 X/day levetiracetam 1,000 mg PO BID lisinopril 2.5 mg PO DAILY multivitamin (One-A-Day Essential tablet) 1 tab PO DAILY Tobacco use date assessed: 02/03/23 Dental Screening Dental Screen Date: 02/03/23 Did you have a dental visit in the last 12 months?: Yes Did you have a dental problem in the last 6 months where you did not have access to dental care?: No Was dental information given to patient?: Patient has dentist HPI Annual Exam HPI Details Patient is a 52-year-old female who presents today for physical exam.? Medical history significant for microalbuminuria - followed by nephrology, history of CVA with right-sided hemiparesis, diabetes mellitus, hyperlipidemia, seizures - followed by Neurology Dr. Carrillo, and hypertension.? Patient reports adhering to a low-carbohydrate diet.?Patient denies shortness of breath or chest pain.? She reports good blood sugars at home that ranging between 98 and 118.? Patient was encouraged to complete her blood work. Today we discussed patient's need for tetanus vaccine. Patient has history of partial hysterectomy and she reports that she has cervix, will refer to Gynecology for a Pap smear. Patient reports diabetic eye exam in the last year. Mammogram 09/2022 and 11/2022 with left breast biopsy which showed fibroadenoma and recommendation for annual mammogram. Up-to-date with colonoscopy. Patient is accompanied by her sister. ? [facility] Medical History (Updated 02/03/23 @ 13:16 by CARINA Spencer) CVA (cerebral vascular accident) Diabetes Ecchymosis Elevated cholesterol Encounter to establish care Hx of cyst of breast Hypertension Mild aphasia Seizures Surgical History (Updated 02/03/23 @ 14:55 by CARINA Spencer) History of partial hysterectomy History of thyroid surgery Hx of colonoscopy Family History Mother Bone cancer Hypertension Diabetes Father Diabetes Hypertension Maternal Aunt Breast cancer, Onset Age: 49 Social History Housing: Apartment Patient Tobacco Use Status: Never used Tobacco e-Cigarette/Vaping Use: Never Used Second Hand Smoke Exposure: No Current occupational status: unemployed Cognitive needs: Yes (cane ) Hearing needs: No Vision needs: Yes (glasses) Questionnaire PHQ-9 Over the last 2 weeks, how often have you been bothered by any of the following problems? 1. Little interest or pleasure in doing things: several days 2. Feeling down, depressed, or hopeless: not at all 3. Trouble falling or staying asleep, or sleeping too much: not at all 4. Feeling tired or having little energy: not at all 5. Poor appetite or overeating: not at all 6. Feeling bad about yourself - or that you are a failure or have let yourself or your family down: not at all 7. Trouble concentrating on things, such as reading the newspaper or watching television: not at all 8. Moving or speaking so slowly that other people could have noticed. Or the opposite - being so fidgety or restless that you have been moving around a lot more than usual: not at all 9. Thoughts that you would be better off or of hurting yourself in some way: not at all Total score: 1 Depression Screening Interpretation: Negative 55310 - PHQ-9 Billing: Yes Source: Developed by Drs. Lamont Beltrán, Bebeto Phillip and colleagues, with an educational lorena from [employer]. Thrive Questionnaire Date Thrive assessed: 02/03/23 I am a: Patient What is your living situation today?: I have a steady place to live Within the past 12 months, did the food you bought not last and you didn't have the money to get more?: Never true Within the past 12 months, did you worry whether your food would run out before you got money to buy more?: Never true Currently or been in a relationship where the following occur: no concerns reported AUDIT C Alcohol Use Questionnaire (AUDIT-C) 1. How often do you have a drink containing alcohol?: Never 2. How many drinks containing alcohol do you have on a typical day when you are drinking?: 1 or 2 3. How often do you have six or more drinks on one occasion?: Never Total Score: 0 Score Reviewed/Action Taken: No RAMESH-7 AMB Questionnaire RAMESH-7 Date RAMESH - 7 assessed: 02/03/23 Feeling nervous, anxious, or on edge: 0 = Not at all Not being able to stop or control worryin = Not at all Worrying too much about different things: 0 = Not at all Trouble relaxin = Not at all Being so restless that it is hard to sit still: 0 = Not at all Becoming easily annoyed or irritable: 0 = Not at all Feeling afraid as if something awful might happen: 0 = Not at all Total RAMESH-7 score (0-4 normal; 5-9 mild; 10-14 moderate; 15-21 severe): 0 Source: Developed by Drs. Lamont Beltrán, Bebeto Phillip and colleagues, with an educational lorena from [employer]. RAMESH-7 Assessment Billing RAMESH-7 Assessment Tool: RAMESH-7 Assessment 30924 Review of Systems Const Denies body aches, Denies chills, Denies fever(s) and Denies headache(s) Eyes Denies change in vision ENT Denies dizziness, Denies otalgia, Denies headache(s), Denies nasal discharge, Denies sinus pain and Denies sore throat Card Denies chest pain, Denies edema, Denies lightheadedness and Denies dyspnea Resp Denies chest congestion, Denies cough and Denies dyspnea GI Denies abdominal pain, Denies constipation, Denies diarrhea, Denies nausea and Denies vomiting Denies dysuria Musc Denies myalgias Skin/Breast Details: Intermittent skin swelling after Trulicity injection in the area where shot was given Denies lesions and Denies rash Neuro Details: Right-sided hemiparesis Denies dizziness and Denies headache(s) Physical exam (Primary Care) Vital Signs: Last Vital Signs Pulse 90 02/03/23 13:00 BP 134/80 02/03/23 13:00 Pulse Ox 98 02/03/23 13:00 Oxygen Delivery Method Room Air 02/03/23 13:00 BMI result Body Mass Index 29.8 Tobacco/Smoking Status: Tobacco use Status Tobacco use date assessed 02/03/23 02/03/23 13:09 Patient Tobacco Use Status Never used Tobacco 02/03/23 13:09 e-Cigarette/Vaping Use Never Used 02/03/23 13:09 PHQ-9: PHQ-9 Score PHQ-9: Total score 1 02/03/23 13:25 Depression Screening Interpretation: Negative Thrive Assessment: Date of Thrive Assessment Date Thrive assessed 02/03/23 02/03/23 13:09 Currently or been in a relationship where the following occur: no concerns reported Const Other: Patient ambulates with a cane Mild aphasia present General: cooperative and no acute distress Orientation/consciousness: oriented to person HENTN Head: Yes normocephalic and Yes atraumatic Ears: TM's normal bilaterally Face and sinus: Yes sinuses nontender Mouth: oropharynx normal and moist mucous membranes Throat: Yes posterior oropharynx normal Eyes General: appearance normal, both eyes and all related structures Pupils: Equal, round and reactive pupils present EOM: EOMs intact bilaterally Neck Neck: Yes normal visual inspection, Yes full ROM and Yes no lymphadenopathy Thyroid: Thyroid normal Resp Effort & Inspection: normal respiratory effort and able to speak in complete sentences Auscultation: clear to auscultation bilaterally, no crackles, no rales, no rhonchi and no wheezes Cardio Rate: regular rate Rhythm: regular rhythm Heart sounds: S1 normal heart sound present, S2 normal heart sound present and no murmurs GI Palpation (GI): Soft to palpation, not firm, nontender, no guarding, not rigid and no hepatosplenomegaly Auscultation: normal bowel sounds General: No CVA tenderness Back/Spine/Pelvis Back: No CVA tenderness Skin Other: Left upper arm very mild localized swelling noted, nontender, patient reports intermittent pruritus Neuro Other: Right-sided hemiparesis General: oriented to person Cranial nerves: Yes Equal, round and reactive pupils present Extrem Other: Right upper extremity and right lower extremity weakness RUE brace and RLE brace General: Yes full ROM and No edema Results AMB Hemoglobin A1c AMB Hemoglobin A1c 6.1 % Last Edit by LA Hadley on 02/03/23 13:14 Immunizations tetanus-diphtheria toxoids-Td Performing Provider: CARINA Spencer Administered by: LA Hadley on 02/03/23 13:25 Dose Route Admin Location Lot Number Expiration Date 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 0.5 mL IM Left Deltoid [id number] 11/23/23 [address]-6 [employer] VIS Given Date VIS Provided VIS Publication Date 02/03/23 Single Vaccine 21 Eligibility Eligibility Date Funding Source Not VFC Eligible 02/03/23 State funds Results Reviewed Results Reviewed: Laboratory Last Values Hgb A1c (Clinic) 6.1 % (4.0-6.0) H 02/03/23 11:43 Assessment and Plan Assessment & Plan (1) Microalbuminuria due to type 2 diabetes mellitus: Code(s): E11.29 - Type 2 diabetes mellitus with other diabetic kidney complication; R80.9 - Proteinuria, unspecified Plan: Microalbumin 98.0 01/16/2022 Continue to follow-up with nephrology Patient was encouraged to complete her labs (2) Hemiparesis: Comment: Right-sided after CVA 11/2014 Code(s): G81.90 - Hemiplegia, unspecified affecting unspecified side Plan: Patient has right-sided hemiparesis after stroke in 2014 Patient is on aspirin 325 mg every other day Continue to follow-up with neurology Dr. Carrillo (3) Diabetes mellitus: Code(s): E11.9 - Type 2 diabetes mellitus without complications Plan: Continue Trulicity 0.75 mg weekly Continue to monitor blood sugars at home A1c 6.1 today Diabetic eye exam 07/2022 per patient Low carbohydrate diet Continue to follow-up with [facility] [facility] (4) Hyperlipidemia: Code(s): E78.5 - Hyperlipidemia, unspecified Plan: LDL goal less than 70 Atorvastatin 20 mg daily Low-cholesterol diet Patient was encouraged to complete her blood work (5) Seizures: Code(s): R56.9 - Unspecified convulsions Plan: Continue to follow-up with neurology Dr. Carrillo Lamotrigine 150 mg b.i.d. Levetiracetam 1000 mg b.i.d. (6) Hypertension: Code(s): I10 - Essential (primary) hypertension Plan: Lisinopril 2.5 mg daily Low-sodium diet Goal BP equal or less than 140/90 (7) Cervical cancer screening: Code(s): Z12.4 - Encounter for screening for malignant neoplasm of cervix (8) Adult general medical exam: Code(s): Z00.00 - Encounter for general adult medical examination without abnormal findings Plan Follow-up in 3 months or sooner as needed. Orders: Orders Vitamin B6 Today E11.29 - Type 2 diabetes mellitus with other diabetic kidney complication, R80.9 - Proteinuria, unspecified AMB Hemoglobin A1c Today E11.9 - Type 2 diabetes mellitus without complications Td State Immunization Today Z23 - Encounter for immunization Referrals SAFETY EQUIPMENT TESTER Referral Z12.4 - Encounter for screening for malignant neoplasm of cervix Coding Level of Care Code Est Pt Prev Care 40-64y(68424) Diagnoses Microalbuminuria due to type 2 diabetes mellitus E11.29; R80.9 Hemiparesis G81.90 Diabetes mellitus E11.9 Hyperlipidemia E78.5 Seizures R56.9 Hypertension I10 Cervical cancer screening Z12.4 Adult general medical exam Z00.00 Additional Codes RAMESH-7 Assessment Billing - RAMESH-7 Assessment Tool: RAMESH-7 Assessment 11918 ([id number])
== END 2023-02-03 13:35 | disposition home or self-care (01) ==
PROVIDERS: Visit Provider Nurse Practitioner Family
DX: Z00.00 Encounter for general adult medical examination without abnormal findings (principal); E11.29 Type 2 diabetes mellitus with other diabetic kidney complication; R80.9 Proteinuria, unspecified; Z23 Encounter for immunization; G81.90 Hemiplegia, unspecified affecting unspecified side; E11.9 Type 2 diabetes mellitus without complications; E78.5 Hyperlipidemia, unspecified; R56.9 Unspecified convulsions; I10 Essential (primary) hypertension; Z12.4 Encounter for screening for malignant neoplasm of cervix
CPT/HCPCS: 83036; 90471; 90714; 99396

== ENCOUNTER 2023-04-25 07:49 | Outpatient (REF) | payer MEDICARE, MEDICAID, SELFPAY | END 2023-04-25 07:50 | disposition home or self-care (01) | LOC: HO.LAB 07:49 | PROVIDERS: PCP Nurse Practitioner Family; Visit Provider Nurse Practitioner Family | DX: E11.29 Type 2 diabetes mellitus with other diabetic kidney complication (principal); R80.9 Proteinuria, unspecified; E78.5 Hyperlipidemia, unspecified; R56.9 Unspecified convulsions; E11.9 Type 2 diabetes mellitus without complications; I69.359 Hemiplegia and hemiparesis following cerebral infarction affecting unspecified side | CPT/HCPCS: 36415; 80053; 80061; 82043; 82306; 82570; 82607; 82746; 83036; 84207; 84443 ==

== ENCOUNTER 2023-05-06 14:57 | Outpatient (AMB) | payer MEDICARE, MEDICAID, SELFPAY ==
[2023-05-06 15:03] VITALS: BP 130/80; PULSE 88; O2SAT 99; BMI 30.3
--- NOTE | 2023-05-06 15:03 | A.OFFPC_ITS ---
Vital Signs 3 05/06/23 15:03 Height 5 ft 5 in Weight 182 lb 0.2 oz BMI 30.3 BP 130/80 Blood Pressure Location Lt brachial Position Sitting Pulse 88 Pulse Source Pulse Oximeter Temp Source Skin Pulse Oximetry (%) 99 Oxygen Delivery Method Room Air Intake Visit Reasons: F/U on DM, HLD Stitch Cleaner Required: No Allergies latex [LATEX] Allergy (Intermediate, Verified 05/06/23 15:34) Hives erythromycin base [ERYTHROMYCIN BASE] Allergy (Unknown, Verified 05/06/23 15:34) UNKNOWN Penicillins [PENICILLINS] Allergy (Unknown, Verified 05/06/23 15:34) UNKNOWN Medication List - Last Reconciled 05/06/23 by CARINA Spencer aspirin (Aspir-Siri) 325 mg PO DAILY atorvastatin 20 mg PO DAILY blood sugar diagnostic (FreeStyle Lite Strips) As directed checks 1 X/day blood-glucose meter (Accu-Chek Cindy Plus Meter) As directed blood-glucose meter (FreeStyle Lite Meter kit) As directed checks 1 X/day dulaglutide (Trulicity) 0.75 mg (0.5 mL) subcut QWEEK lamotrigine 150 mg PO BID 90 days lancets (FreeStyle Lancets) As directed checks 1 X/day levetiracetam 1,000 mg PO BID lisinopril 2.5 mg PO DAILY multivitamin (One-A-Day Essential tablet) 1 tab PO DAILY Tobacco use date assessed: 05/06/23 Dental Screening Dental Screen Date: 05/06/23 Did you have a dental visit in the last 12 months?: Yes Did you have a dental problem in the last 6 months where you did not have access to dental care?: No Was dental information given to patient?: Patient has dentist HPI F/U on DM, HLD 2 HPI0 Details Patient is a 53-year-old female who presents today to follow-up on chronic conditions.? Medical history significant for microalbuminuria - followed by nephrology, history of CVA with right-sided hemiparesis, diabetes mellitus, hyperlipidemia, seizures - followed by Neurology Dr. Carrillo, and hypertension.?Patient denies shortness of breath or chest pain.? She reports blood sugars at home ranging between 109 and 125. Recent blood work results reviewed with the patient. She reports right ear lump for the past some time and would like this to be removed. [facility] Medical History Mild aphasia CVA (cerebral vascular accident) Diabetes Seizures Elevated cholesterol Hypertension Ecchymosis Encounter to establish care Hx of cyst of breast Surgical History Hx of colonoscopy History of partial hysterectomy History of thyroid surgery Family History Mother Bone cancer Hypertension Diabetes Father Diabetes Hypertension Maternal Aunt Breast cancer, Onset Age: 49 Social History Housing: Apartment Patient Tobacco Use Status: Never used Tobacco e-Cigarette/Vaping Use: Never Used Second Hand Smoke Exposure: No Current occupational status: unemployed Cognitive needs: Yes (cane ) Hearing needs: No Vision needs: Yes (glasses) Questionnaire Thrive Questionnaire Date Thrive assessed: 02/03/23 AUDIT C Alcohol Use Questionnaire (AUDIT-C) 1. How often do you have a drink containing alcohol?: Never 2. How many drinks containing alcohol do you have on a typical day when you are drinking?: 1 or 2 3. How often do you have six or more drinks on one occasion?: Never Total Score: 0 Score Reviewed/Action Taken: No RAMESH-7 AMB Questionnaire RAMESH-7 Date RAMESH - 7 assessed: 02/03/23 Source: Developed by Drs. Lamont Beltrán, Pati Jaimes, Bebeto Jerry and colleagues, with an educational lorena from [employer]. Review of Systems Const Denies body aches, Denies chills, Denies fever(s) and Denies headache(s) Eyes Denies change in vision ENT Denies dizziness, Denies otalgia, Denies headache(s), Denies nasal discharge, Denies sinus pain and Denies sore throat Card Denies chest pain, Denies edema, Denies lightheadedness and Denies dyspnea Resp Denies chest congestion, Denies cough and Denies dyspnea GI Denies abdominal pain, Denies constipation, Denies diarrhea, Denies nausea and Denies vomiting Denies dysuria Musc Denies myalgias Skin/Breast Reports lesions and Denies rash Neuro Details: Right-sided hemiparesis Denies dizziness and Denies headache(s) Physical exam (Primary Care) Vital Signs: Last Vital Signs Pulse 88 05/06/23 15:03 BP 130/80 05/06/23 15:03 Pulse Ox 99 05/06/23 15:03 Oxygen Delivery Method Room Air 05/06/23 15:03 BMI result Body Mass Index 30.3 Tobacco/Smoking Status: Tobacco use Status Tobacco use date assessed 05/06/23 05/06/23 15:04 Patient Tobacco Use Status Never used Tobacco 05/06/23 15:04 e-Cigarette/Vaping Use Never Used 05/06/23 15:04 Thrive Assessment: Date of Thrive Assessment Date Thrive assessed 02/03/23 05/06/23 15:04 Const Other: Patient ambulates with a cane Mild aphasia present General: cooperative and no acute distress Orientation/consciousness: oriented to person HENMT Head: Yes normocephalic and Yes atraumatic Face and sinus: Yes sinuses nontender Mouth: oropharynx normal and moist mucous membranes Throat: Yes posterior oropharynx normal Eyes General: appearance normal, both eyes and all related structures Pupils: Equal, round and reactive pupils present EOM: EOMs intact bilaterally Neck Neck: Yes normal visual inspection, Yes full ROM and Yes no lymphadenopathy Thyroid: Thyroid normal Resp Effort & Inspection: normal respiratory effort and able to speak in complete sentences Auscultation: clear to auscultation bilaterally, no crackles, no rales, no rhonchi and no wheezes Cardio Rate: regular rate Rhythm: regular rhythm Heart sounds: S1 normal heart sound present, S2 normal heart sound present and no murmurs GI Auscultation: normal bowel sounds Skin Full body images: 2 1. Right lobule with raised nontender area about 5 mm, no signs of infection noted Neuro Other: Right-sided hemiparesis General: oriented to person Cranial nerves: Yes Equal, round and reactive pupils present Extrem Other: Right upper extremity and right lower extremity weakness RUE brace and RLE brace General: Yes full ROM and No edema Office Procedures Flu Questionnaire Does the patient have a severe egg allergy?: No Does the patient have severe life threatening allergies?: No Does the patient have a fever or illness today?: No Has the patient ever had Guillain-Conception Syndrome?: No Has the patient ever had any past reaction to a flu shot?: No Immunizations flu vacc [id number] 6mos up(PF) 60 mcg(15 mcgx4)/0.5 mL IM syringe Performing Provider: CARINA Spencer [facility] [place] Administered by: LA Hadley on 05/06/23 16:01 2 Dose Route Admin Location Dispensed Lot Number Expiration Date 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 0.5 mL IM Left Deltoid 0.5 mL [id number] 01/17/24 28323-130-74 [employer] 2 VIS Given Date VIS Provided VIS Publication Date 05/06/23 Single Vaccine 21 Eligibility Eligibility Date Funding Source Not [facility] Eligible 05/06/23 Private Assessment and Plan Assessment & Plan (1) Microalbuminuria due to type 2 diabetes mellitus: Code(s): E11.29 - Type 2 diabetes mellitus with other diabetic kidney complication; R80.9 - Proteinuria, unspecified Plan: Microalbumin 65 04/2023 Continue to follow-up with nephrology (2) Hemiparesis: Comment: Right-sided after CVA 11/2014 Code(s): G81.90 - Hemiplegia, unspecified affecting unspecified side Plan: Patient has right-sided hemiparesis after stroke in 2014 Patient is on aspirin 325 mg every other day Continue to follow-up with neurology Dr. Carrillo (3) Diabetes mellitus: Code(s): E11.9 - Type 2 diabetes mellitus without complications Plan: Continue Trulicity 0.75 mg weekly Continue to monitor blood sugars at home A1c 6.4 04/2023, goal less than 7 Diabetic eye exam 07/2022 per patient Low carbohydrate diet Continue to follow-up with [place] [facility] Patient has requested continuous blood sugar monitor (4) Hyperlipidemia: Code(s): E78.5 - Hyperlipidemia, unspecified Plan: LDL 100 04/2023, LDL goal less than 70 Atorvastatin 20 mg daily Low-cholesterol diet - reinforced Repeat in 3 months (5) Seizures: Code(s): R56.9 - Unspecified convulsions Plan: Continue to follow-up with neurology Dr. Carrillo Lamotrigine 150 mg b.i.d. Levetiracetam 1000 mg b.i.d. (6) Hypertension: Code(s): I10 - Essential (primary) hypertension Plan: Lisinopril 2.5 mg daily Low-sodium diet Goal BP equal or less than 140/90 (7) Lump of skin: Code(s): R22.9 - Localized swelling, mass and lump, unspecified Plan: Right lobule with raised nontender area about 5 mm, no signs of infection noted Dermatology referral for an evaluation and treatment Plan Follow-up in 3 months or sooner as needed. Orders: Orders 2 Comprehensive [place]. Panel Fast 3 Months E11.9 - Type 2 diabetes mellitus without complications Lipid Panel 3 Months E78.5 - Hyperlipidemia, unspecified Hemoglobin A1c 3 Months E11.9 - Type 2 diabetes mellitus without complications Influenza [id number] Immunization Today Z23 - Encounter for immunization Referrals 2 Dermatology Referral R22.9 - Localized swelling, mass and lump, unspecified Medications: New 2 flash glucose scanning reader (FreeStyle Jolene 2 Germfask) As directed 1 ea 0RF E11.9 - Type 2 diabetes mellitus without complications flash glucose sensor (FreeStyle Jolene 2 Sensor kit) As directed 1 ea 3RF E11.9 - Type 2 diabetes mellitus without complications Coding Level of Care Code Est Pt Level 4 (84900) Diagnoses Microalbuminuria due to type 2 diabetes mellitus E11.29; R80.9 Hemiparesis G81.90 Diabetes mellitus E11.9 Hyperlipidemia E78.5 Seizures R56.9 Hypertension I10 Lump of skin R22.9
== END 2023-05-06 16:06 | disposition home or self-care (01) ==
PROVIDERS: Visit Provider Nurse Practitioner Family
DX: E11.29 Type 2 diabetes mellitus with other diabetic kidney complication (principal); G81.90 Hemiplegia, unspecified affecting unspecified side; E11.69 Type 2 diabetes mellitus with other specified complication; R56.9 Unspecified convulsions; Z23 Encounter for immunization; R80.9 Proteinuria, unspecified; E78.5 Hyperlipidemia, unspecified; I10 Essential (primary) hypertension; R22.9 Localized swelling, mass and lump, unspecified
CPT/HCPCS: 90471; 90686; 99214

== ENCOUNTER 2023-05-07 14:59 | Outpatient (REF) | payer MEDICARE, MEDICAID, SELFPAY ==
[2023-05-12 06:43] LABS: HPV mRNA E6/E7 rflx Not Detected (Not Detected)
== END 2023-05-07 15:00 | disposition home or self-care (01) ==
LOC: HO.LNP 14:59
PROVIDERS: Visit Provider Advanced Practice Midwife
DX: Z01.419 Encounter for gynecological examination (general) (routine) without abnormal findings (principal); N64.4 Mastodynia; N63.10 Unspecified lump in the right breast, unspecified quadrant; N63.20 Unspecified lump in the left breast, unspecified quadrant; R10.2 Pelvic and perineal pain; Z86.73 Personal history of transient ischemic attack (TIA), and cerebral infarction without residual deficits; Z79.899 Other long term (current) drug therapy
CPT/HCPCS: 87624; 88142; G0101

== ENCOUNTER 2023-05-07 14:59 | Outpatient (AMB) | payer MEDICARE, MEDICAID, SELFPAY ==
--- NOTE | 2023-05-07 15:03 | A.OFFVIS_ITS ---
Intake Vital Signs 05/07/23 15:05 Height 5 ft 5 in Weight 184 lb BMI 30.6 BP 120/78 Intake Visit Reasons: New patient Annual Intake Note: Having right breast pain. Customer Success Manager Required: No Information Interpreted: non-clinical & clinical Securities Underwriter: Securities Underwriter Present (Alejandra) Accompanied by: Sister Allergies latex [LATEX] Allergy (Intermediate, Verified 05/07/23 15:10) Hives erythromycin base [ERYTHROMYCIN BASE] Allergy (Unknown, Verified 05/07/23 15:10) UNKNOWN Penicillins [PENICILLINS] Allergy (Unknown, Verified 05/07/23 15:10) UNKNOWN Medication List - Last Reconciled 05/07/23 by Ptaricia Hsieh CNM aspirin (Aspir-Siri) 325 mg PO DAILY atorvastatin 20 mg PO DAILY blood sugar diagnostic (FreeStyle Lite Strips) As directed checks 1 X/day blood-glucose meter (Accu-Chek Cindy Plus Meter) As directed blood-glucose meter (FreeStyle Lite Meter kit) As directed checks 1 X/day dulaglutide (Trulicity) 0.75 mg (0.5 mL) subcut QWEEK flash glucose scanning reader (FreeStyle Jolene 2 [place]) As directed flash glucose sensor (FreeStyle Jolene 2 Sensor kit) As directed lamotrigine 150 mg PO BID 90 days lancets (FreeStyle Lancets) As directed checks 1 X/day levetiracetam 1,000 mg PO BID lisinopril 2.5 mg PO DAILY multivitamin (One-A-Day Essential tablet) 1 tab PO DAILY Is last menstrual period known: No HPI New patient Annual HPI Details Note patient noted that she is having right breast pain however she has had multiple mammograms as well as biopsies and evaluations and visits with breast surgery this year primarily focused on the left breast. I will recommend that she return to breast surgery for any breast concerns. Diagnostic mammogram ordered for right breast and right breast ultrasound and a new consultation to Dr. Solano was placed. 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 Patient says had a stroke in 2014 so she needs the systems of her sister since then she has a history of fibroids and had a partial hysterectomy at [facility] in 2017. She has not been sexually active since the time of her stroke. She does not think she had any abnormal Pap smears ever. She has no worries or concerns about abnormal discharge. She has the concern about the lump in her right breast which was already mentioned. Her diabetes is better controlled now with the Trulicity while she does not like getting shots which her sister has to give her. [facility] Medical History Mild aphasia CVA (cerebral vascular accident) Diabetes Seizures Elevated cholesterol Hypertension Ecchymosis Encounter to establish care Hx of cyst of breast Surgical History Hx of colonoscopy History of partial hysterectomy History of thyroid surgery Family History Mother Bone cancer Hypertension Diabetes Father Diabetes Hypertension Maternal Aunt Breast cancer, Onset Age: 49 Social History Housing: Apartment Patient Tobacco Use Status: Never used Tobacco e-Cigarette/Vaping Use: Never Used Second Hand Smoke Exposure: No Current occupational status: unemployed Cognitive needs: Yes (cane ) Hearing needs: No Vision needs: Yes (glasses) Female Reproductive History Menstrual Age of Menarche: 12 control method: permanent sterilization Total pregnancies: 2 Full term: 1 Number of Living Children: 1 Ab induced: 1 Physical Exam Vital Signs: Last Vital Signs BP 120/78 05/07/23 15:05 BMI result Body Mass Index 30.6 Const Other: Patient has some hesitation with some speech. She has some limited right arm movement and right leg movement and wears a brace on left leg and has a cane. She feels a lump on her right side of her breast see chest section General: healthy appearing, comfortable, no acute distress, well developed and alert Nutritional Appearance: average body habitus Orientation/consciousness: patient oriented x3 HEENT Head: Yes normocephalic Neck Neck: Yes normal visual inspection Chest Other: With exception of a uneven lump behind right nipple that the patient was able to point out to me approximately 2 centimetres around. Left breast has scar tissue which is partially keloided from lumpectomy Chest palpation & inspection: normal inspection of the chest Breast/axilla inspection: normal inspection of the breasts and normal inspection of the axillae Breast/axilla palpation: normal palpation of the breasts and normal palpation of the axillae Resp Effort & Inspection: normal respiratory effort GI Inspection: Yes normal to inspection, No Abdominal wall edema and No distended Palpation (GI): Soft to palpation and nontender General: Yes bladder normal to palpation External Female Exam: normal external appearance and normal appearance of the urethra Speculum Exam - Vagina: normal appearance of the vagina, normal palpation and normal vaginal discharge Speculum Exam - Cervix: normal appearance of the cervix, Cervix absent, nontender and Other cervical findings present (Normal vaginal mucosa no cervix visible just vaginal cuff.) Bimanual exam- vagina & uterus: normal bimanual exam, normal palpation, bladder normal to palpation, No Cervical tenderness present, uterus absent and cervical motion tenderness Bimanual Exam- Adnexa, other: no masses, normal (Slightly weak tone with Kegel instructed on Kegels) and No adnexal tenderness OB/external & speculum: external exam normal Neuro General: patient oriented x3 Assessment & Plan Assessment & Plan (1) Cervical cancer screening: Code(s): Z12.4 - Encounter for screening for malignant neoplasm of cervix (2) Breast mass, right: Code(s): N63.10 - Unspecified lump in the right breast, unspecified quadrant (3) History of stroke: Comment: 11/2014 Code(s): Z86.73 - Personal history of transient ischemic attack (TIA), and cerebral infarction without residual deficits (4) Left breast mass: Code(s): N63.20 - Unspecified lump in the left breast, unspecified quadrant (5) Pelvic pain: Code(s): R10.2 - Pelvic and perineal pain Plan Note patient noted that she is having right breast pain however she has had multiple mammograms as well as biopsies and evaluations and visits with breast surgery this year primarily focused on the left breast. I will recommend that she return to breast surgery for any breast concerns. Diagnostic mammogram ordered for right breast and right breast ultrasound and a new consultation to Dr. Solano was placed. -----Discussed in this visit the following: healthy balanced diet, regular and consistent exercise, getting recommended health screens, doing the best she can for her particular health concerns, kegel exercises, pap smear screening and followup recommendations, mammography screening and SBE, normal changes in cycles in her life stage--- . I did a Pap smear of the vaginal cuff area. She has no history of abnormal. 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 She has no problems with her vaginal discharge so no cultures were done or necessary. I did give her a handout and coached her on doing Kegel's . I am ordering a pelvic ultrasound to assess for her ovaries just because she does have some pain there occasionally and just to verify what was removed with surgery. We can have a tele visit after the ultrasound to review but the visits with Dr. Solano will obviously be in-person. I have ordered a mammogram for the right breast diagnostic and a right breast ultrasound she had full screening mammograms and evaluations earlier this year. Orders: Orders Pap Smear Today Z12.4 - Encounter for screening for malignant neoplasm of cervix US breast RT complete Today N63.10 - Unspecified lump in the right breast, unspecified quadrant US pelvic and transvaginal Today R10.2 - Pelvic and perineal pain MM tomosynthesis diagnostic RT Today N63.10 - Unspecified lump in the right breast, unspecified quadrant, N63.20 - Unspecified lump in the left breast, unspecified quadrant Referrals Breast Surgery Referral N63.10 - Unspecified lump in the right breast, unspecified quadrant, Z12.4 - Encounter for screening for malignant neoplasm of cervix, Z86.73 - Personal history of transient ischemic attack (TIA), and cerebral infarction without residual deficits Coding Level of Care Code New Pt Prev Care 40-64y(36785) Diagnoses Cervical cancer screening Z12.4 Breast mass, right N63.10 History of stroke Z86.73 Left breast mass N63.20 Pelvic pain R10.2
[2023-05-07 15:05] VITALS: BP 120/78; BMI 30.6
== END 2023-05-07 16:01 | disposition home or self-care (01) ==
PROVIDERS: Visit Provider Advanced Practice Midwife
DX: N63.10 Unspecified lump in the right breast, unspecified quadrant (principal); N63.20 Unspecified lump in the left breast, unspecified quadrant; R10.2 Pelvic and perineal pain; Z86.73 Personal history of transient ischemic attack (TIA), and cerebral infarction without residual deficits; Z01.419 Encounter for gynecological examination (general) (routine) without abnormal findings
CPT/HCPCS: 99204; G0101; Q0091

== ENCOUNTER 2023-05-26 15:34 | Outpatient (AMB) | payer MEDICARE, MEDICAID, SELFPAY ==
--- NOTE | 2023-05-26 15:35 | A.OFFVIS_ITS ---
Intake Vital Signs 3 05/26/23 15:44 Height 5 ft 5 in Weight 183 lb BMI 30.4 Pulse 72 Intake Visit Reasons: Unspecified lump in the right breast Intake Note: Patient is seen in office for right breast lump. Patient c/o: onset past couple of weeks, right breast pain, feels a lump in the area, denies redness, discharge, no other concerns, has a mammogram scheduled for 06/19/23 L OV: 12/18/22 PRN Industrial Sociologist Required: No Rat Exterminator: Rat Exterminator Present Accompanied by: Family/Other Allergies latex [LATEX] Allergy (Intermediate, Verified 05/26/23 15:44) Hives erythromycin base [ERYTHROMYCIN BASE] Allergy (Unknown, Verified 05/26/23 15:44) UNKNOWN Penicillins [PENICILLINS] Allergy (Unknown, Verified 05/26/23 15:44) UNKNOWN Medication List - Last Reconciled 05/26/23 by Claudio Solano MD aspirin (Aspir-Siri) 325 mg PO DAILY atorvastatin 20 mg PO DAILY blood sugar diagnostic (FreeStyle Lite Strips) As directed checks 1 X/day blood-glucose meter (Accu-Chek Cindy Plus Meter) As directed blood-glucose meter (FreeStyle Lite Meter kit) As directed checks 1 X/day dulaglutide (Trulicity) 0.75 mg (0.5 mL) subcut QWEEK flash glucose scanning reader (FreeStyle Jolene 2 [place]) As directed flash glucose sensor (FreeStyle Jolene 2 Sensor kit) As directed lamotrigine 150 mg PO BID 90 days lancets (FreeStyle Lancets) As directed checks 1 X/day levetiracetam 1,000 mg PO BID lisinopril 2.5 mg PO DAILY multivitamin (One-A-Day Essential tablet) 1 tab PO DAILY HPI HPI Comments 2 History of Present Illness0 Details 53-year-old female patient presenting wi th a new breast mass noted on the right side of several weeks duration. Patient reports some pain associated with the palpable mass. This is evaluate her primary care and arrangements made for mammogram and ultrasound scheduled for 06/19/2023. She denies any bleeding or discharge social with a lesion. She has a prior history of a left breast biopsy performed at an outside institution with resulting keloid in the incision. She was previously evaluated for the keloid and injection of Kenalog performed on 12/18/2022. She reports an improvement in the keloid after this injection. [facility] Medical History Mild aphasia CVA (cerebral vascular accident) Diabetes Seizures Elevated cholesterol Hypertension Ecchymosis Encounter to establish care Hx of cyst of breast Surgical History Hx of colonoscopy History of partial hysterectomy History of thyroid surgery Family History Mother Bone cancer Hypertension Diabetes Father Diabetes Hypertension Maternal Aunt Breast cancer, Onset Age: 49 Social History Housing: Apartment Patient Tobacco Use Status: Never used Tobacco e-Cigarette/Vaping Use: Never Used Second Hand Smoke Exposure: No Current occupational status: unemployed Cognitive needs: Yes (cane ) Hearing needs: No Vision needs: Yes (glasses) Female Reproductive History Menstrual Age of Menarche: 12 Review of Systems Const All systems reviewed & are unremarkable except as noted in HPI and below Denies chills, Denies fever(s), Denies headache(s), Denies poor appetite and Denies weakness ENT Denies headache(s) Card Denies chest pain, Denies irregular heart rhythm, Denies palpitations and Denies dyspnea Resp Denies cough, Denies excessive phlegm production and Denies dyspnea GI Denies abdominal pain, Denies bloating, Denies change in bowel habits, Denies constipation, Denies heartburn, Denies diarrhea, Denies nausea and Denies vomiting Denies urinary frequency and Denies nipple discharge Musc Denies back pain, Denies muscle weakness and Denies numbness Skin/Breast Reports breast pain, Reports breast mass, Denies changing lesions, Denies nipple discharge and Denies unusual bruising Neuro Denies headache(s), Denies numbness, Denies paresthesias and Denies weakness Psych Denies anxiety and Denies depression Endo Denies palpitations Marcos/Lymph Denies lymphadenopathy Physical Exam Vital Signs: Last Vital Signs Pulse 72 05/26/23 15:44 BMI result Body Mass Index 30.4 Const General: cooperative and no acute distress Nutritional Appearance: well nourished Orientation/consciousness: patient oriented x3 Limitations: no limitations HEENT Head: Yes normocephalic and Yes atraumatic Ears: hearing grossly normal bilaterally Chest Chest/axillae images: 2 1. 1.5 cm mass, tender to palpation with no overlying skin change located in the 11 o'clock position in the subareolar location. 2. Previous incision left breast Resp Effort & Inspection: normal respiratory effort, no audible wheezes, no cough and no respiratory distress Cardio Jugular venous distension: no JVD GI Inspection: Yes normal to inspection Skin Other: Warm, dry, no rash Neuro General: patient oriented x3 Extrem General: Yes no clubbing, cyanosis or edema Assessment & Plan Assessment & Plan (1) Breast mass, right: Code(s): N63.10 - Unspecified lump in the right breast, unspecified quadrant Qualifiers: Breast mass location: upper outer quadrant Qualified Code(s): N63.11 - Unspecified lump in the right breast, upper outer quadrant Plan 53-year-old female patient presenting with a new breast mass noted on the right breast. Lesion has been present for several weeks and is similar to a lesion of the left breast which was previously excised. On examination there is indeed a density palpable in the 11 o'clock position of the right breast just below the areola measured approximately 1.5 cm in diameter. The lesion is fairly superficial within the breast tissue and no overlying skin changes are noted. I offered to arrange for a sooner mammogram and ultrasound however patient is unable to get a ride until June 19. I recommended she return following the mammogram and ultrasound to review the results and discuss treatment options. She expressed understanding and agrees with the plan. Coding Level of Care Code Est Pt Level 3 (49442) Diagnoses Mass of upper outer quadrant of right breast N63.11 Breast mass location: upper outer quadrant
[2023-05-26 15:44] VITALS: PULSE 72; BMI 30.4
== END 2023-05-26 16:18 | disposition home or self-care (01) ==
PROVIDERS: Visit Provider Surgery
DX: N63.11 Unspecified lump in the right breast, upper outer quadrant (principal)
CPT/HCPCS: 99213

== ENCOUNTER → 2023-05-26 15:34 | Outpatient (BNVA) | payer MEDICARE, MEDICAID, SELFPAY | PROVIDERS: Visit Provider Surgery | DX: N63.11 Unspecified lump in the right breast, upper outer quadrant (principal) | CPT/HCPCS: 99212 ==

== ENCOUNTER 2023-05-27 15:04 | Outpatient (REF) | payer MEDICARE, MEDICAID, SELFPAY ==
--- NOTE | ~2023-05-27 | US_ITS ---
EXAMINATION: US PELVIS CLINICAL INFORMATION: Pelvic and perineal pain. Hysterectomy. COMPARISON: CT pelvis 07/06/2022. TECHNIQUE: Ultrasound of the pelvis is performed using both transabdominal and transvaginal transducers along with Doppler. Transvaginal imaging is performed due to inadequate visualization transabdominally. FINDINGS: The uterus is not seen consistent with history of hysterectomy. The right ovary measures 2.3 x 1.9 x 2.0 cm, volume 5.0 mL. The right ovary appears normal. The left ovary is not seen. No mass or fluid collections seen in the pelvis. US/US pelvic and transvaginal IMPRESSION: Nonvisualization of the left ovary. Hysterectomy. Otherwise unremarkable pelvic ultrasound.
== END 2023-05-27 15:05 | disposition home or self-care (01) ==
LOC: HO.US 15:04
PROVIDERS: Visit Provider Advanced Practice Midwife
DX: R10.2 Pelvic and perineal pain (principal)
CPT/HCPCS: 76830; 76856

== ENCOUNTER 2023-06-19 14:32 | Outpatient (REF) | payer MEDICARE, MEDICAID, SELFPAY ==
--- NOTE | ~2023-06-19 | US_ITS ---
EXAMINATION: MM DIAGNOSTIC DIGITAL BREAST TOMOSYNTHESIS, RIGHT US BREAST LIMITED, RIGHT MAMMOGRAPHY: CLINICAL INFORMATION: Palpable focus of concern right breast approximately 11:00 axis anterior one third. COMPARISON: Mammography: 11/10/2022, 09/29/2022, 11/07/2022, ultrasound 11/07/2022. Ultrasound right 09/14/2019. TECHNIQUE: Digital right breast tomosynthesis is performed in both the craniocaudal and mediolateral oblique views along with computer-aided detection (CAD). Synthesized 2D images are generated from the tomosynthesis. FINDINGS: The breasts are heterogeneously dense, which may obscure small masses (ACR BI-RADS breast composition Category c). There is a circumscribed round 2.9 cm isodense mass in the approximate 11:00 axis of the right breast, anterior one third, correlating with the palpable focus of concern. This appears to have been present 09/29/2022. In addition, there is a much smaller oval mass immediately posterior to the larger mass, and a similar small 1.0 cm circumscribed mass in the 9:00 axis of the right breast. No suspicious calcifications, suspicious masses, or areas of architectural distortion are identified. There are normal-appearing lymph nodes in the right axilla. No skin changes. ULTRASOUND: CLINICAL INFORMATION: Palpable focus of concern right breast approximately 11:00 axis anterior one third. COMPARISON: No recent prior. 09/14/2019. TECHNIQUE: Targeted sonographic evaluation was performed using a high frequency linear transducer. Selected archived documentation. FINDINGS: RIGHT BREAST: There is a 2.3 x 2.7 x 2.1 cm simple cyst in the 11:00 to 12:00 retroareolar region, correlating with the focus of palpable concern. This is benign. There is a smaller 1.0 cm simple cyst posterior to the larger cyst. No masses or solid findings identified. No abnormal shadowing. US/US breast RT limited mamm only IMPRESSION: There are no findings suspicious for malignancy in the right breast. Patient appears to be feeling a simple cyst measuring up to 2.7 cm in the retroareolar region. This is benign. There are smaller simple cysts as well. These are also benign. Recommend the patient return to routine annual screening in October 2023. OVERALL ASSESSMENT: Mammography: BI-RADS 2 - Benign Findings Ultrasound: BI-RADS 2 - Benign Findings RECOMMENDATION: 1 year F/U Results were provided to the patient at time of visit by the technologist. This patient's information was entered into a reminder system with a target due date for their next mammogram.
== END 2023-06-19 14:33 | disposition home or self-care (01) ==
LOC: HO.MAMMO 14:32
PROVIDERS: PCP Nurse Practitioner Family; Visit Provider Advanced Practice Midwife
DX: N63.12 Unspecified lump in the right breast, upper inner quadrant (principal)
CPT/HCPCS: 76642; 77061; 77065

== ENCOUNTER → 2023-06-19 15:00 | Outpatient (BNV) | payer MEDICARE, MEDICAID, SELFPAY | PROVIDERS: PCP Nurse Practitioner Family; Visit Provider Radiology Diagnostic Radiology | DX: N63.11 Unspecified lump in the right breast, upper outer quadrant (principal); N63.15 Unspecified lump in the right breast, overlapping quadrants | CPT/HCPCS: 76642; 77061; 77065; G0279 ==

== ENCOUNTER 2023-07-01 15:08 | Outpatient (AMB) | payer MEDICARE, MEDICAID, SELFPAY ==
--- NOTE | 2023-07-01 15:12 | MHC.OFFVIS ---
Intake Intake Visit Reasons: TV US Follow up Rn Or Lpn Required: No Allergies latex [LATEX] Allergy (Intermediate, Verified 07/01/23 15:13) Hives erythromycin base [ERYTHROMYCIN BASE] Allergy (Unknown, Verified 07/01/23 15:13) UNKNOWN Penicillins [PENICILLINS] Allergy (Unknown, Verified 07/01/23 15:13) UNKNOWN Medication List - Last Reconciled 07/01/23 by Patricia Hsieh CNM aspirin (Aspir-Siri) 325 mg PO DAILY atorvastatin 20 mg PO DAILY blood sugar diagnostic (FreeStyle Lite Strips) As directed checks 1 X/day blood-glucose meter (Accu-Chek Cindy Plus Meter) As directed blood-glucose meter (FreeStyle Lite Meter kit) As directed checks 1 X/day dulaglutide (Trulicity) 0.75 mg (0.5 mL) subcut QWEEK flash glucose scanning reader (FreeStyle Jolene 2 [place]) As directed flash glucose sensor (FreeStyle Jolene 2 Sensor kit) As directed lamotrigine 150 mg PO BID 90 days lancets (FreeStyle Lancets) As directed checks 1 X/day levetiracetam 1,000 mg PO BID lisinopril 2.5 mg PO DAILY multivitamin (One-A-Day Essential tablet) 1 tab PO DAILY Is last menstrual period known: No Post menopausal: Yes Patient : No HPI TV US Follow up HPI Details This is a tele visit to discuss patient's test results that were ordered after the patient's last visit. Patient is accompanied by her sister who assists her with all things health after her stroke. They are actually at the dentist's office awaiting a visit. Patient says she still has discomfort in her breast where she had the discomfort the day she came to see me so we reviewed the visit and the breast ultrasound and mammogram the findings basically were consistent with a simple cyst that they felt was benign and did not need any particular follow-up but since she is still uncomfortable with it she could definitely return to Dr. Solano and I did place some referral on the day of the visit so that is available to her to follow-up with him and she has seen him in the past as well. If it is uncomfortable she can discuss with him what if anything may be able to be done to facilitate making it feel better even if it is a simple cyst. She had had a history of a hysterectomy however because I could not feel structures very clearly and was not entirely certain of an absence of a cervix, I had the pelvic ultrasound ordered no uterine structures were visible on ultrasound her left ovary is normal and her right ovary was not seen. So I reviewed these findings with her there is no necessity for any particular follow-up with any of these findings. [facility] Medical History Mild aphasia CVA (cerebral vascular accident) Diabetes Seizures Elevated cholesterol Hypertension Ecchymosis Encounter to establish care Hx of cyst of breast Surgical History (Updated 07/01/23 @ 15:42 by Patricia Hsieh CNM) Hx of colonoscopy History of partial hysterectomy History of thyroid surgery Family History Mother Bone cancer Hypertension Diabetes Father Diabetes Hypertension Maternal Aunt Breast cancer, Onset Age: 49 Social History Housing: Apartment Patient Tobacco Use Status: Never used Tobacco e-Cigarette/Vaping Use: Never Used Second Hand Smoke Exposure: No Patient : No Current occupational status: unemployed Cognitive needs: Yes (cane ) Hearing needs: No Vision needs: Yes (glasses) Female Reproductive History Menstrual Age of Menarche: 12 control method: permanent sterilization Date of last pap smear: 05/08/23 (negative) Results Reviewed Results Reviewed: Patient: Virginie Canada MR#: [id number] : 1970 Acct:[id number] Age/Sex: 53 / F ADM Date: 05/27/23 Loc: HO.US Attending Dr: Patricia Hsieh CNM Ordering Physician: Patricia Hsieh CNM Date of Service: 05/27/23 Procedure(s): US pelvic and transvaginal Accession Number(s): [id number] cc: Patricia Hsieh CNM~ EXAMINATION: US PELVIS CLINICAL INFORMATION: Pelvic and perineal pain. Hysterectomy. COMPARISON: CT pelvis 07/06/2022. TECHNIQUE: Ultrasound of the pelvis is performed using both transabdominal and transvaginal transducers along with Doppler. Transvaginal imaging is performed due to inadequate visualization transabdominally. FINDINGS: The uterus is not seen consistent with history of hysterectomy. The right ovary measures 2.3 x 1.9 x 2.0 cm, volume 5.0 mL. The right ovary appears normal. The left ovary is not seen. No mass or fluid collections seen in the pelvis. US/US pelvic and transvaginal IMPRESSION: Nonvisualization of the left ovary. Hysterectomy. Otherwise unremarkable pelvic ultrasound. Dictated By: Janes Medellin MD Signed By: <Electronically signed by Janes Medellin MD in OV> 05/29/23 1315 DD/ 1531 TD/TT: Line Maintainer: [facility] [address] [place] [address] Mammography Report Signed Patient: Virginie Canada MR#: [id number] : 1970 Acct:[id number] Age/Sex: 53 / F ADM Date: 06/19/23 Loc: HO.MAMMO Attending Dr: Patricia Hsieh CNM Ordering Physician: Patricia Hsieh CNM Results: 2Benign Findings Date of Service: 06/19/23 Follow Up: 1 Year From Original Mammogram Procedure(s): MM tomosynthesis diagnostic RT Accession Number(s): [id number] cc: Patricia Hsieh CNM; Estephania Padilla~ EXAMINATION: MM DIAGNOSTIC DIGITAL BREAST TOMOSYNTHESIS, RIGHT US BREAST LIMITED, RIGHT MAMMOGRAPHY: CLINICAL INFORMATION: Palpable focus of concern right breast approximately 11:00 axis anterior one third. COMPARISON: Mammography: 11/10/2022, 09/29/2022, 11/07/2022, ultrasound 11/07/2022. Ultrasound right 09/14/2019. TECHNIQUE: Digital right breast tomosynthesis is performed in both the craniocaudal and mediolateral oblique views along with computer-aided detection (CAD). Synthesized 2D images are generated from the tomosynthesis. FINDINGS: The breasts are heterogeneously dense, which may obscure small masses (ACR BI-RADS breast composition Category c). There is a circumscribed round 2.9 cm isodense mass in the approximate 11:00 axis of the right breast, anterior one third, correlating with the palpable focus of concern. This appears to have been present 09/29/2022. In addition, there is a much smaller oval mass immediately posterior to the larger mass, and a similar small 1.0 cm circumscribed mass in the 9:00 axis of the right breast. No suspicious calcifications, suspicious masses, or areas of architectural distortion are identified. There are normal-appearing lymph nodes in the right axilla. No skin changes. ULTRASOUND: CLINICAL INFORMATION: Palpable focus of concern right breast approximately 11:00 axis anterior one third. COMPARISON: No recent prior. 09/14/2019. TECHNIQUE: Targeted sonographic evaluation was performed using a high frequency linear transducer. Selected archived documentation. FINDINGS: RIGHT BREAST: There is a 2.3 x 2.7 x 2.1 cm simple cyst in the 11:00 to 12:00 retroareolar region, correlating with the focus of palpable concern. This is benign. There is a smaller 1.0 cm simple cyst posterior to the larger cyst. No masses or solid findings identified. No abnormal shadowing. MM/MM tomosynthesis diagnostic RT IMPRESSION: There are no findings suspicious for malignancy in the right breast. Patient appears to be feeling a simple cyst measuring up to 2.7 cm in the retroareolar region. This is benign. There are smaller simple cysts as well. These are also benign. Recommend the patient return to routine annual screening in October 2023. OVERALL ASSESSMENT: Mammography: BI-RADS 2 - Benign Findings Ultrasound: BI-RADS 2 - Benign Findings RECOMMENDATION: 1 year F/U Results were provided to the patient at time of visit by the technologist. This patient's information was entered into a reminder system with a target due date for their next mammogram. Dictated By: Sal Major MD Signed By: <Electronically signed by Sal Major MD in OV> 06/19/23 1542 DD/ 1500 TD/TT: Line Maintainer: Assessment & Plan Assessment & Plan (1) Breast mass, right: Code(s): N63.10 - Unspecified lump in the right breast, unspecified quadrant Qualifiers: Breast mass location: upper outer quadrant Qualified Code(s): N63.11 - Unspecified lump in the right breast, upper outer quadrant (2) Cervical cancer screening: Comment: 05/07/2023 Pap is negative with negative HPV. 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 Reviewed that she is more than welcome to follow-up with Dr. Solano about her breast if it is still giving her problems and she is uncomfortable with the it but the findings were a benign cyst. The recommendations were to follow-up with routine annual screening in October of 2023. I had already placed a referral to Dr. Solano so she may do that at her discretion Reviewed the pelvic ultrasound findings which confirm absence of the uterus. They could only see 1 ovary but at least there is 1 ovary so that is confirmed. No uterine structures were seen. Telehealth Telehealth Location of provider rendering services: practice address Location of patient: address on file Patient Identification confirmed using: Name, : Yes Telehealth method: video Patient verbally consented to treatment: Yes Patient verbally consented to billing insurance company: Yes Patient informed of any privacy concerns related to visit: Yes Coding Level of Care Code Tele Est Pt Level 3 (08543) Diagnoses Mass of upper outer quadrant of right breast N63.11 Breast mass location: upper outer quadrant Cervical cancer screening Z12.4 History of stroke Z86.73 History of partial hysterectomy Z90.711
== END 2023-07-01 16:25 ==
LOC: HO.HWS 15:08
PROVIDERS: PCP Nurse Practitioner Family; Visit Provider Advanced Practice Midwife
DX: N63.11 Unspecified lump in the right breast, upper outer quadrant (principal); Z12.4 Encounter for screening for malignant neoplasm of cervix; Z86.73 Personal history of transient ischemic attack (TIA), and cerebral infarction without residual deficits; Z90.711 Acquired absence of uterus with remaining cervical stump
CPT/HCPCS: 99213

== ENCOUNTER → 2023-07-01 15:08 | Outpatient (BNVA) | payer MEDICARE, MEDICAID, SELFPAY | PROVIDERS: PCP Nurse Practitioner Family; Visit Provider Advanced Practice Midwife ==

== ENCOUNTER 2023-07-06 13:18 | Outpatient (AMB) | payer MEDICARE, MEDICAID, SELFPAY ==
--- NOTE | 2023-07-06 13:24 | MHC.OFFVIS ---
Intake Vital Signs 07/06/23 13:33 Height 5 ft 5 in Weight 183 lb 4 oz BMI 30.5 BP 138/64 Blood Pressure Location Lt brachial Position Sitting Pulse 76 Intake Visit Reasons: Breast pain, US/Mammo results Intake Note: Patient is seen in office for ultrasound/mammogram results, following breast pain. Pt c/o: continued pain in the right breast, states is bigger Book Critic Required: No Accompanied by: Daughter Allergies latex [LATEX] Allergy (Intermediate, Verified 07/06/23 13:33) Hives erythromycin base [ERYTHROMYCIN BASE] Allergy (Unknown, Verified 07/06/23 13:33) UNKNOWN Penicillins [PENICILLINS] Allergy (Unknown, Verified 07/06/23 13:33) UNKNOWN Medication List - Last Reconciled 07/06/23 by Claudio Solano MD aspirin (Aspir-Siri) 325 mg PO DAILY atorvastatin 20 mg PO DAILY blood sugar diagnostic (FreeStyle Lite Strips) As directed checks 1 X/day blood-glucose meter (Accu-Chek Cindy Plus Meter) As directed blood-glucose meter (FreeStyle Lite Meter kit) As directed checks 1 X/day dulaglutide (Trulicity) 0.75 mg (0.5 mL) subcut QWEEK flash glucose scanning reader (FreeStyle Jolene 2 [place]) As directed flash glucose sensor (FreeStyle Jolene 2 Sensor kit) As directed lamotrigine 150 mg PO BID 90 days lancets (FreeStyle Lancets) As directed checks 1 X/day levetiracetam 1,000 mg PO BID lisinopril 2.5 mg PO DAILY multivitamin (One-A-Day Essential tablet) 1 tab PO DAILY HPI HPI Comments History of Present Illness Details 53-year-old female patient returning for re-evaluation of a right breast mass noted on self examination. She was previously examined on 05/26/2023 and arrangements made for mammogram and ultrasound of the right breast. Since her last visit she feels the lump has increased in size and is now causing more discomfort. Mammogram and ultrasound results were reviewed with the patient and her sister. This revealed a large simple cyst corresponding to the palpable mass. No suspicious findings were identified in the right breast. [facility] Medical History Mild aphasia CVA (cerebral vascular accident) Diabetes Seizures Elevated cholesterol Hypertension Ecchymosis Encounter to establish care Hx of cyst of breast Surgical History Hx of colonoscopy History of partial hysterectomy History of thyroid surgery Family History Mother Bone cancer Hypertension Diabetes Father Diabetes Hypertension Maternal Aunt Breast cancer, Onset Age: 49 Social History Housing: Apartment Patient Tobacco Use Status: Never used Tobacco e-Cigarette/Vaping Use: Never Used Second Hand Smoke Exposure: No Current occupational status: unemployed Cognitive needs: Yes (cane ) Hearing needs: No Vision needs: Yes (glasses) Female Reproductive History Menstrual Age of Menarche: 12 Review of Systems Const All systems reviewed & are unremarkable except as noted in HPI and below Denies chills, Denies fever(s), Denies headache(s), Denies poor appetite and Denies weakness ENT Denies headache(s) Card Denies chest pain, Denies irregular heart rhythm, Denies palpitations and Denies dyspnea Resp Denies cough, Denies excessive phlegm production and Denies dyspnea GI Denies abdominal pain, Denies bloating, Denies change in bowel habits, Denies constipation, Denies heartburn, Denies diarrhea, Denies nausea and Denies vomiting Denies urinary frequency and Denies nipple discharge Musc Denies back pain, Denies muscle weakness and Denies numbness Skin/Breast Reports breast pain, Reports breast mass, Denies changing lesions, Denies nipple discharge and Denies unusual bruising Neuro Denies headache(s), Denies numbness, Denies paresthesias and Denies weakness Psych Denies anxiety and Denies depression Endo Denies palpitations Marcos/Lymph Denies lymphadenopathy Physical Exam Vital Signs: Last Vital Signs Pulse 76 07/06/23 13:33 BP 138/64 07/06/23 13:33 BMI result Body Mass Index 30.5 Const General: cooperative and no acute distress Nutritional Appearance: well nourished Orientation/consciousness: patient oriented x3 Limitations: no limitations HEENT Head: Yes normocephalic and Yes atraumatic Ears: hearing grossly normal bilaterally Chest Other: Right breast with a large palpable mass in the 11-12 o'clock position measuring approximately 2 cm in diameter. No overlying skin changes are appreciated. There is mild tenderness to palpation. No other suspicious findings are appreciated. No nipple discharge could be expressed. Resp Effort & Inspection: normal respiratory effort, no audible wheezes, no cough and no respiratory distress Cardio Jugular venous distension: no JVD GI Inspection: Yes normal to inspection Skin Other: Warm, dry, no rash Neuro General: patient oriented x3 Extrem General: Yes no clubbing, cyanosis or edema Office Procedures FNA BIOPSY FNA Biopsy Preoperative diagnosis: Right breast cyst 12:00 o'clock Postoperative diagnosis: Same Procedure: Needle aspiration right breast cyst 12:00 o'clock Surgeon: Claudio Solano MD Network Infrastructure Architect: None Anesthesia: Lidocaine 1% with epinephrine Indications for procedure: Symptomatic right breast cyst Operative findings: 8 mL of benign breast fluid Specimen: None Estimated blood loss: None Complications: None Procedure details: Patient was placed in a supine position. After confirmation of the site of palpable lump in the 12 o'clock position right breast and after assuring informed consent, the right breast was prepped with Betadine and draped in a sterile fashion. Local anesthesia was then infiltrated directly over the palpable cyst. A needle aspiration was then performed using an 18 gauge needle. Approximately 8 mL of benign-appearing breast fluid was then aspirated. The cyst was no longer palpable after complete aspiration. A sterile spot bandage was applied. The patient tolerated the procedure well. She was discharged to home in stable condition. Fine Needle Aspiration: 51294- FNA 1st lesion w/o image Results Reviewed Results Reviewed: Assessment & Plan Assessment & Plan (1) Cyst of breast, right, benign solitary: Code(s): N60.01 - Solitary cyst of right breast Plan 53-year-old female patient presenting with a large symptomatic right breast cyst both by examination and mammogram/ultrasound. Options include continued observation, needle aspiration, or surgical excision. Because of the symptoms the patient is currently experiencing I recommended needle aspiration under local anesthesia. After a discussion of the procedure, risks, and alternatives, she consents to the needle aspiration. This was performed today in the office with approximately 8 mL of benign appearing breast fluid aspirated. The cyst is no longer palpable following aspiration. She tolerated the procedure well. I recommended return visit approximately 1 month. Coding Level of Care Code Est Pt Level 3 (13508) Diagnoses Cyst of breast, right, benign solitary N60.01 CPT Codes FNA Biopsy - Fine Needle Aspiration: 85292- FNA 1st lesion w/o image ([id number])
[2023-07-06 13:33] VITALS: BP 138/64; PULSE 76; BMI 30.5
== END 2023-07-06 13:52 | disposition home or self-care (01) ==
PROVIDERS: PCP Nurse Practitioner Family; Visit Provider Surgery
DX: N60.01 Solitary cyst of right breast (principal)
CPT/HCPCS: 10021; 99213

== ENCOUNTER → 2023-07-06 13:18 | Outpatient (BNVA) | payer MEDICARE, MEDICAID, SELFPAY | PROVIDERS: PCP Nurse Practitioner Family; Visit Provider Surgery | DX: N60.01 Solitary cyst of right breast (principal) | CPT/HCPCS: 10021; 99212 ==

== ENCOUNTER 2023-08-06 15:27 | Outpatient (AMB) | payer MEDICARE, MEDICAID, SELFPAY ==
--- NOTE | 2023-08-06 15:31 | A.OFFVIS_ITS ---
Intake Vital Signs 08/06/23 15:38 Height 5 ft 5 in Weight 184 lb 8 oz BMI 30.7 BP 146/70 H Blood Pressure Location Lt brachial Position Sitting Pulse 83 Intake Visit Reasons: 1 mth follow up Breast pain Intake Note: Patient is seen in office for one month follow up visit, following aspiration of the right breast. Pt c/o: denies any concerns Nurse Infection Control Required: No Accompanied by: Family/Other Allergies latex [LATEX] Allergy (Intermediate, Verified 08/06/23 15:38) Hives erythromycin base [ERYTHROMYCIN BASE] Allergy (Unknown, Verified 08/06/23 15:38) UNKNOWN Penicillins [PENICILLINS] Allergy (Unknown, Verified 08/06/23 15:38) UNKNOWN Medication List - Last Reconciled 08/06/23 by Claudio Solano MD aspirin (Aspir-Siri) 325 mg PO DAILY atorvastatin 20 mg PO DAILY blood sugar diagnostic (FreeStyle Lite Strips) As directed checks 1 X/day blood-glucose meter (Accu-Chek Cindy Plus Meter) As directed blood-glucose meter (FreeStyle Lite Meter kit) As directed checks 1 X/day dulaglutide (Trulicity) 0.75 mg (0.5 mL) subcut QWEEK flash glucose scanning reader (FreeStyle Jolene 2 [place]) As directed flash glucose sensor (FreeStyle Jolene 2 Sensor kit) As directed lamotrigine 150 mg PO BID 90 days lancets (FreeStyle Lancets) As directed checks 1 X/day levetiracetam 1,000 mg PO BID lisinopril 2.5 mg PO DAILY multivitamin (One-A-Day Essential tablet) 1 tab PO DAILY HPI HPI Comments History of Present Illness Details 53-year-old female patient returning for re-evaluation of a right breast mass noted on self examination. She was previously examined on 05/26/2023 and arrangements made for mammogram and ultrasound of the right breast. Mammogram and ultrasound revealed a large simple cyst corresponding to the palpable mass. No suspicious findings were identified in the right breast. She underwent a percutaneous cyst aspiration without ultrasound 1 month ago with approximately 8 mL of benign-appearing breast fluid. She returns today for follow-up examination. She denies any pain in the right breast. [facility] Medical History Mild aphasia CVA (cerebral vascular accident) Diabetes Seizures Elevated cholesterol Hypertension Ecchymosis Encounter to establish care Hx of cyst of breast Surgical History Hx of colonoscopy History of partial hysterectomy History of thyroid surgery Family History Mother Bone cancer Hypertension Diabetes Father Diabetes Hypertension Maternal Aunt Breast cancer, Onset Age: 49 Social History Housing: Apartment Patient Tobacco Use Status: Never used Tobacco e-Cigarette/Vaping Use: Never Used Second Hand Smoke Exposure: No Current occupational status: unemployed Cognitive needs: Yes (cane ) Hearing needs: No Vision needs: Yes (glasses) Female Reproductive History Menstrual Age of Menarche: 12 Review of Systems Const All systems reviewed & are unremarkable except as noted in HPI and below Denies chills, Denies fever(s), Denies headache(s), Denies poor appetite and Denies weakness ENT Denies headache(s) Card Denies chest pain, Denies irregular heart rhythm, Denies palpitations and Denies dyspnea Resp Denies cough, Denies excessive phlegm production and Denies dyspnea GI Denies abdominal pain, Denies bloating, Denies change in bowel habits, Denies constipation, Denies heartburn, Denies diarrhea, Denies nausea and Denies vomiting Denies urinary frequency and Denies nipple discharge Musc Denies back pain, Denies muscle weakness and Denies numbness Skin/Breast Reports breast pain, Reports breast mass, Denies changing lesions, Denies nipple discharge and Denies unusual bruising Neuro Denies headache(s), Denies numbness, Denies paresthesias and Denies weakness Psych Denies anxiety and Denies depression Endo Denies palpitations Marcos/Lymph Denies lymphadenopathy Physical Exam Const General: cooperative and no acute distress Nutritional Appearance: well nourished Orientation/consciousness: patient oriented x3 Limitations: no limitations HEENT Head: Yes normocephalic and Yes atraumatic Ears: hearing grossly normal bilaterally Chest Other: Right breast reveals no palpable remaining cyst. There is no tenderness to palpation. Resp Effort & Inspection: normal respiratory effort, no audible wheezes, no cough and no respiratory distress Cardio Jugular venous distension: no JVD GI Inspection: Yes normal to inspection Skin Other: Warm, dry, no rash Neuro General: patient oriented x3 Extrem General: Yes no clubbing, cyanosis or edema Assessment & Plan Assessment & Plan (1) Cyst of breast, right, benign solitary: Code(s): N60.01 - Solitary cyst of right breast Plan 53-year-old female patient presenting with a large symptomatic right breast cyst both by examination and mammogram/ultrasound. She underwent a cyst aspiration last month and tolerated this well. Examination today reveals no further palpable breast cyst on the right side. She should follow up as needed. Coding Level of Care Code Est Pt Level 3 (30984) Diagnoses Cyst of breast, right, benign solitary N60.01
[2023-08-06 15:38] VITALS: BP 146/70; PULSE 83; BMI 30.7
== END 2023-08-06 15:46 | disposition home or self-care (01) ==
PROVIDERS: PCP Nurse Practitioner Family; Visit Provider Surgery
DX: N60.01 Solitary cyst of right breast (principal)
CPT/HCPCS: 99213

== ENCOUNTER → 2023-08-06 15:27 | Outpatient (BNVA) | payer MEDICARE, MEDICAID, SELFPAY | PROVIDERS: PCP Nurse Practitioner Family; Visit Provider Surgery | DX: N60.01 Solitary cyst of right breast (principal) | CPT/HCPCS: 99212 ==

== ENCOUNTER 2023-09-25 10:30 | Emergency (ER) | payer MEDICARE, MEDICAID, SELFPAY ==
--- NOTE | ~2023-09-25 | XR_ITS ---
EXAMINATION: XR CHEST CLINICAL INFORMATION: Chest pain COMPARISON: None available. TECHNIQUE: Frontal view of the chest was obtained. FINDINGS: No significant abnormality is noted involving the heart, lungs, mediastinum, bony thorax or soft tissues. XR/XR chest 1V IMPRESSION: Unremarkable chest examination.
[2023-09-25 10:40] VITALS: BP 128/68; PULSE 88; RESP 16; TEMP 36.9; O2SAT 98; BMI 24.1
--- NOTE | 2023-09-25 10:40 | ECG_ITS ---
Test Reason : CP Blood Pressure : / mmHG Vent. Rate : 080 BPM Atrial Rate : 080 BPM P-R Int : 144 ms QRS Dur : 062 ms QT Int : 344 ms P-R-T Axes : 063 027 046 degrees QTc Int : 396 ms Normal sinus rhythm with sinus arrhythmia Nonspecific T wave abnormality Abnormal ECG When compared with ECG of 31-DEC-2022 08:04, No significant change was found Referred By: Henrry Little Electronically Signed By:Qasim Garland
--- NOTE | 2023-09-25 10:51 | ED_ITS ---
HPI - Chest Pain General Chief Complaint: Chest Pain Stated Complaint: Chest pain Time Seen by Provider: 09/25/23 10:39 Source: patient Mode of arrival: ambulatory History of Present Illness HPI narrative: This is 53 years old female presented to the emergency department with a chief complaint of chest pain. Her pain is chronic she said that he has been happening for 1 year localized in the left chest not exertional is no diaphoresis. She was seen in the emergency room on May 2022 for chest pain, December 2022 for chest pain. She has history of prior stroke history of seizure disorder history of diabetes right-side hemiparesis MD complaint: chest pain Onset (ago): month(s) Onset: during rest Pain location: substernal Pain radiation: none Quality: aching Relieving factors: nothing Exacerbating factors: nothing Risk Factors Coronary artery disease risk factors: diabetes Related Data Home Medications Medication Instructions Recorded Confirmed aspirin 325 mg tablet,delayed 325 mg PO DAILY 11/27/21 08/06/23 release (Aspir-Siri) lisinopril 2.5 mg tablet 2.5 mg PO DAILY 11/27/21 08/06/23 multivitamin (One-A-Day Essential 1 tab PO DAILY 11/27/21 08/06/23 tablet) Previous Rx's Medication Instructions Recorded blood-glucose meter (Accu-Chek #1 ea 01/23/22 Cindy Plus Meter) blood sugar diagnostic (FreeStyle #50 ea 07/25/22 Lite Strips) blood-glucose meter (FreeStyle #1 ea 07/25/22 Lite Meter kit) lancets 28 gauge (FreeStyle #100 ea 07/25/22 Lancets) lamotrigine 150 mg tablet 150 mg PO BID 90 days #180 tabs 09/03/22 levetiracetam 1,000 mg tablet 1,000 mg PO BID #180 tabs 10/06/22 flash glucose scanning reader #1 ea 05/06/23 (FreeStyle Jolene 2 [place]) flash glucose sensor (FreeStyle #1 ea 05/06/23 Jolene 2 Sensor kit) atorvastatin 20 mg tablet 20 mg PO DAILY #90 tabs 05/18/23 dulaglutide 0.75 mg/0.5 mL 0.75 mg (0.5 mL) subcut QWEEK #2 mL 09/14/23 subcutaneous pen injector (Trulicity) Allergies Allergy/AdvReac Type Severity Reaction Status Date / Time latex [LATEX] Allergy Intermediate Hives Verified 08/06/23 15:38 erythromycin base Allergy Unknown UNKNOWN Verified 08/06/23 15:38 [ERYTHROMYCIN BASE] Penicillins [PENICILLINS] Allergy Unknown UNKNOWN Verified 08/06/23 15:38 Review of Systems 2 Constitutional: Constitutional: Reports no additional constitutional complaints Cardiovascular: Cardiovascular: Reports chest pain Musculoskeletal: Musculoskeletal: Reports no additional musculoskeletal complaints PMFSH Past Medical History Attestation statement: The following information was validated with the patient. Medical History Mild aphasia CVA (cerebral vascular accident) Diabetes Seizures Elevated cholesterol Hypertension Ecchymosis Encounter to establish care Hx of cyst of breast Surgical History Hx of colonoscopy History of partial hysterectomy History of thyroid surgery Family History Family History Mother Bone cancer Hypertension Diabetes Father Diabetes Hypertension Maternal Aunt Breast cancer, Onset Age: 49 Social History Social History Housing: Apartment Patient Tobacco Use Status: Never used Tobacco e-Cigarette/Vaping Use: Never Used Second Hand Smoke Exposure: No Advance Directives: Yes Advance Directives Information Provided: Yes Advance Directives on File: No Current occupational status: unemployed Cognitive needs: Yes (cane ) Hearing needs: No Vision needs: Yes (glasses) Physical Exam 2 Vital Signs: Vital Signs: Last Vital Signs Temp 98.5 F 09/25/23 10:40 Pulse 88 09/25/23 10:40 Resp 16 09/25/23 10:40 BP 128/68 09/25/23 10:40 Pulse Ox 98 09/25/23 10:40 O2 Del Method Room Air 09/25/23 10:40 BMI result Body Mass Index 24.1 Const: General: cooperative Nutritional Appearance: well nourished O rientation/consciousness: oriented to person and patient oriented x3 L imitations: no limitations HEENT: Head: Yes normal to inspection General nose exam: Normal external nose present Face and sinus: Yes normal facial exam Mouth: Normal oral and palatal mucosa present Neck: Neck: Yes normal visual inspection Chest: Chest palpation & inspection: normal inspection of the chest Resp: Effort & Inspection: normal respiratory effort Auscultation: clear to auscultation bilaterally Cardio: Jugular venous distension: no JVD Rate: regular rate Rhythm: r egular rhythm GI: Inspection: Yes normal to inspection Palpation (GI): Soft to palpation Auscultation: normal bowel sounds Skin: General skin exam: no rashes or lesions noted Lesions: no lesions Rashes: no rashes Neuro: General: oriented to person and patient oriented x3 Cranial nerves: Yes CN's II-XII intact bilaterally Course Reevaluation(s) Reevaluation #1: Troponin negative D-dimer negative chest x-ray normal pain is been ongoing for weeks I think she can be discharged home I do not think we need to do another Time: 13:29 Medical Decision Making Medical Decision Making [facility] Narrative: Patient presented with chest pain somewhat chronic, we will get an electrocardiogram a chest x-ray and reassessed Differential Diagnosis Differential Diagnoses: The differential diagnosis associated with the presentation includes ACS/pneumothorax/pneumonia Admission/Observation Consideration of admission/observation: Escalation of care including admission/observation considered Lab Data [facility] Lab Attestation statement: I reviewed the patient's lab results. 09/25/23 12:00 09/25/23 12:00 Labs: Lab Results 09/25/23 09/25/23 Range/Units 12:00 12:02 WBC 6.8 (4.8-10.8) X10*3/uL RBC 4.33 (4.20-5.50) X10*6/uL Hgb 12.7 (12.0-16.0) g/dl Hct 37.7 (37.0-47.0) % MCV 87.1 (80.0-98.0) fL MCH 29.3 (27.0-33.0) pg MCHC 33.7 (31.0-35.0) g/dl RDW 12.5 (11.0-16.0) % Plt Count 296 (160-400) X10*3/uL MPV 8.7 L (9.4-12.3) fL Immature Gran % (Auto) 0.3 (0.0-0.4) % Neut % (Auto) 59.3 (45-73) % Lymph % (Auto) 31.4 (20-40) % [place] % (Auto) 5.6 (2-11) % Eos % (Auto) 2.8 (0-4) % Baso % (Auto) 0.6 (0-2) % Lymph # (Auto) 2.1 (1.2-4.9) X10*3/uL [place] # (Auto) 0.4 (0.1-1.2) X10*3/uL Eos # (Auto) 0.2 (0.0-0.4) X10*3/uL Baso # (Auto) 0.0 (0.0-0.2) X10*3/uL Abs Immat Gran (auto) 0.02 (0.00-0.03) X10*3/uL Absolute Neuts (auto) 4.0 (2.0-8.3) x10*3/uL Absolute Nucleated RBC 0.000 (0.0-0.012) X10*3/uL Nucleated RBC % (auto) 0.0 (0.0-0.2) /100WBC D-Dimer High Sensitivty 161 NG/ML Sodium 138 (135-145) mmol/L Potassium 4.4 (3.3-5.1) mmol/L Chloride 104 (96-108) mmol/L Carbon Dioxide 27 (22-29) mmol/L Anion Gap 11 L (12-20) BUN 14 (9-16) mg/dL Creatinine 0.89 (0.5-1.4) mg/dL Estim Creat Clear Calc 67.2 Estimated GFR > 60 Random Glucose 136 H (60-115) mg/dL Calcium 9.5 (8.4-10.2) mg/dL Troponin I High Sens < 2.7 (<3.5-17.0) ng/L Independent Interpretation I performed an independent interpretation of an: EKG (Electrocardiogram was reviewed interpreted personally by me normal sinus rhythm [address]-T changes normal electrocardiogram) Radiology Impression Discussion of test interpretation with radiology: I have reviewed the radiologist's reading. Radiologist Impression: [id number] cc: Henrry Little MD; Physician,Unknown ~ EXAMINATION: XR CHEST CLINICAL INFORMATION: Chest pain COMPARISON: None available. TECHNIQUE: Frontal view of the chest was obtained. FINDINGS: No significant abnormality is noted involving the heart, lungs, mediastinum, bony thorax or soft tissues. XR/XR chest 1V IMPRESSION: Unremarkable chest examination. Dictated By: Fred Yost MD Signed By: <Electronically signed by Fred Yost MD in OV> 09/25/23 1137 DD/ 1057 TD/TT: Trans Independent Historian Clinical information obtained from an independent historian. History obtained from or confirmed by: Other (daughter) External Record Review External record reviewed: Inpatient record Chronic Conditions cva Discharge Plan Discharge Clinical Impression: Chest pain Patient Disposition: Home, Self-Care Instructions: Chest Pain (DC) Prescriptions: No Action (DME) FreeStyle Lite Strips Strip See Rx Instructions .Route Qty: 50 5RF Rx Instructions: As directed checks 1 X/day (DME) blood-glucose meter [FreeStyle Lite Meter] Kit See Rx Instructions .Route Qty: 1 0RF Rx Instructions: As directed checks 1 X/day (DME) lancets [FreeStyle Lancets] 28 gauge misc See Rx Instructions .Route Qty: 100 4RF Rx Instructions: As directed checks 1 X/day lamotrigine 150 mg tablet 150 mg PO BID 90 Days Qty: 180 1RF levetiracetam 1,000 mg tablet 1,000 mg PO BID Qty: 180 0RF atorvastatin 20 mg tablet 20 mg PO DAILY Qty: 90 1RF Trulicity 0.75 mg/0.5 mL pen injector 0.75 mg subcut QWEEK Qty: 2 3RF (DME) FreeStyle Jolene 2 [place] Misc See Rx Instructions .MEDSUPPLY Qty: 1 0RF Rx Instructions: As directed (DME) FreeStyle Jolene 2 Sensor Kit See Rx Instructions .MEDSUPPLY Qty: 1 3RF Rx Instructions: As directed aspirin [Aspir-Siri] 325 mg tablet,delayed release (DR/EC) 325 mg PO DAILY Rx Instructions: Every other day multivitamin [One-A-Day Essential] Tablet 1 tab PO DAILY lisinopril 2.5 mg tablet 2.5 mg PO DAILY Rx Instructions: Every other day (DME) blood-glucose meter [Accu-Chek Cindy Plus Meter] Misc See Rx Instructions .Route Qty: 1 0RF Rx Instructions: As directed
[2023-09-25 12:08] LABS: MANUAL DIFF FLAG NO
[2023-09-25 12:19] LABS: Basophils Percent Auto 0.6 % (0-2); Eosinophils Absolute Auto 0.2 X10*3/uL (0.0-0.4); Eosinophils Percent Auto 2.8 % (0-4); Hematocrit 37.7 % (37.0-47.0); Hemoglobin 12.7 g/dl (12.0-16.0); Imm Gran Abs Auto 0.02 X10*3/uL (0.00-0.03); Imm Gran Pct Auto 0.3 % (0.0-0.4); Lymphocytes Absolute Auto 2.1 X10*3/uL (1.2-4.9); Lymphocytes Percent Auto 31.4 % (20-40); Mean Corpuscular HGB Conc 33.7 g/dl (31.0-35.0); Mean Corpuscular Hemoglobin 29.3 pg (27.0-33.0); Mean Corpuscular Volume 87.1 fL (80.0-98.0); Mean Platelet Volume 8.7 fL (9.4-12.3); Monocytes Absolute Auto 0.4 X10*3/uL (0.1-1.2); Monocytes Percent Auto 5.6 % (2-11); Neutrophils Percent Auto 59.3 % (45-73); Platelet Count 296 X10*3/uL (160-400); Red Blood Count 4.33 X10*6/uL (4.20-5.50); Red Cell Distribution Width 12.5 % (11.0-16.0); White Blood Count 6.8 X10*3/uL (4.8-10.8)
[2023-09-25 12:30] LABS: D Dimer High Sensitivity 161 NG/ML
[2023-09-25 12:36] LABS: Anion Gap 11 (12-20); Blood Urea Nitrogen 14 mg/dL (9-16); Calcium 9.5 mg/dL (8.4-10.2); Carbon Dioxide 27 mmol/L (22-29); Chloride 104 mmol/L (96-108); Creatinine Clr Calc Pharmacy 67.2; Estimated Glomerular Filt Rate > 60; Glucose Random 136 mg/dL (60-115); Potassium 4.4 mmol/L (3.3-5.1); Sodium 138 mmol/L (135-145)
[2023-09-25 12:39] LABS: Troponin-I High Sensitivity < 2.7 ng/L (<3.5-17.0)
== END 2023-09-25 13:33 | disposition home or self-care (01) ==
PROVIDERS: Emergency Provider Emergency Medicine
DX: R07.9 Chest pain, unspecified (principal); I10 Essential (primary) hypertension; E11.9 Type 2 diabetes mellitus without complications; G40.909 Epilepsy, unspecified, not intractable, without status epilepticus; I69.351 Hemiplegia and hemiparesis following cerebral infarction affecting right dominant side
CPT/HCPCS: 36415; 71045; 80048; 84484; 85025; 85379; 93005; 99283

== ENCOUNTER → 2023-09-25 10:40 | Outpatient (BNV) | payer MEDICARE, MEDICAID, SELFPAY | PROVIDERS: Emergency Provider Emergency Medicine; Visit Provider Internal Medicine Cardiovascular Disease | DX: I49.9 Cardiac arrhythmia, unspecified (principal); R07.9 Chest pain, unspecified | CPT/HCPCS: 93010 ==

== ENCOUNTER 2023-09-27 17:28 | Emergency (ER) | payer MEDICARE, MEDICAID, SELFPAY ==
--- NOTE | ~2023-09-27 | XR_ITS ---
EXAMINATION: XR CHEST CLINICAL INFORMATION: Chest pain COMPARISON: None available. TECHNIQUE: 2 views of the chest were obtained. FINDINGS: No significant abnormality is noted involving the heart, lungs, mediastinum, bony thorax or soft tissues. XR/XR chest 2V IMPRESSION: Unremarkable examination.
[2023-09-27 17:43] VITALS: BP 142/71; PULSE 79; RESP 19; TEMP 36.6; O2SAT 99
--- NOTE | 2023-09-27 17:44 | ED.CHESTPAIN ---
HPI - Chest Pain General Chief Complaint: Nausea/Vomiting/Diarrhea Stated Complaint: Nauseous couple weeks Time Seen by Provider: 09/27/23 22:13 Source: patient and family Mode of arrival: ambulatory History of Present Illness HPI narrative: Patient is a 53-year-old female with history of stroke, right-sided hemiparesis, DM, HTN, HLD, seizures, left breast mass presenting to the emergency department with complaint of chest pain for the past 2 weeks which has since resolved but today developed nausea. She denies vomiting, diarrhea, constipation. Denies current chest pain. Mother reports that she was told at previous visit to get a referral to GI from PCP. She has not tried any [id number] medications for her symptoms. Denies any known sick contacts. She denies any dyspnea associated with episodes of chest pain or nausea. Denies any abdominal pain. MD complaint: other Pertinent past history: other Onset (ago): hour(s) Timing of current episode: constant Prior episodes: No Onset: awoke with symptoms Associated symptoms: nausea Treatment prior to arrival: none Related Data Home Medications Medication Instructions Recorded Confirmed aspirin 325 mg tablet,delayed 325 mg PO DAILY 11/27/21 08/06/23 release (Aspir-Siri) lisinopril 2.5 mg tablet 2.5 mg PO DAILY 11/27/21 08/06/23 multivitamin (One-A-Day Essential 1 tab PO DAILY 11/27/21 08/06/23 tablet) Previous Rx's Medication Instructions Recorded blood-glucose meter (Accu-Chek #1 ea 01/23/22 Cindy Plus Meter) blood sugar diagnostic (FreeStyle #50 ea 07/25/22 Lite Strips) blood-glucose meter (FreeStyle #1 ea 07/25/22 Lite Meter kit) lancets 28 gauge (FreeStyle #100 ea 07/25/22 Lancets) lamotrigine 150 mg tablet 150 mg PO BID 90 days #180 tabs 09/03/22 levetiracetam 1,000 mg tablet 1,000 mg PO BID #180 tabs 10/06/22 flash glucose scanning reader #1 ea 05/06/23 (FreeStyle Jolene 2 [place]) flash glucose sensor (FreeStyle #1 ea 05/06/23 Jolene 2 Sensor kit) atorvastatin 20 mg tablet 20 mg PO DAILY #90 tabs 05/18/23 dulaglutide 0.75 mg/0.5 mL 0.75 mg (0.5 mL) subcut QWEEK #2 mL 09/14/23 subcutaneous pen injector (Trulicity) ondansetron 4 mg disintegrating 4 mg PO Q8H PRN nausea and 09/28/23 tablet vomiting #10 tabs Allergies Allergy/AdvReac Type Severity Reaction Status Date / Time latex [LATEX] Allergy Intermediate Hives Verified 09/27/23 17:43 erythromycin base Allergy Unknown UNKNOWN Verified 09/27/23 17:43 [ERYTHROMYCIN BASE] Penicillins [PENICILLINS] Allergy Unknown UNKNOWN Verified 09/27/23 17:43 Review of Systems Review of Systems: As per HPI. Yes all other systems are reviewed and are negative Constitutional: Constitutional: Reports as per HPI [facility] Past Medical History Medical History Mild aphasia CVA (cerebral vascular accident) Diabetes Seizures Elevated cholesterol Hypertension Ecchymosis Encounter to establish care Hx of cyst of breast Surgical History Hx of colonoscopy History of partial hysterectomy History of thyroid surgery Family History Family History Mother Bone cancer Hypertension Diabetes Father Diabetes Hypertension Maternal Aunt Breast cancer, Onset Age: 49 Social History Social History Housing: Apartment Patient Tobacco Use Status: Never used Tobacco Smoked in Last 30 Days: No e-Cigarette/Vaping Use: Never Used Second Hand Smoke Exposure: No Use of substances other than those prescribed or required for medical reasons: No Advance Directives: No Advance Directives Information Provided: No Patient : No Current occupational status: unemployed Cognitive needs: Yes (cane ) Hearing needs: No Vision needs: Yes (glasses) Physical Exam Vital Signs: Vital Signs: Last Vital Signs Temp 98 F 09/27/23 17:43 Pulse 79 09/27/23 17:43 Resp 19 09/27/23 17:43 BP 142/71 H 09/27/23 17:43 Pulse Ox 99 09/27/23 17:43 BMI result Body Mass Index 30.0 Vital signs have been reviewed and appear to be correct. Blood pressure normal. Heart rate normal. Respiratory rate normal. Temperature normal. Oxygen saturation normal. Const: General: cooperative, healthy appearing and no acute distress Orientation/consciousness: oriented to person, oriented to place, oriented to time and patient oriented x3 Limitations: no limitations HEENT: Head: Yes normocephalic and Yes atraumatic Ears: external ears normal General nose exam: Normal external nose present Face and sinus: Yes face symmetric Mouth: oropharynx normal and moist mucous membranes Throat: Yes uvula midline Eyes: Pupils: Equal, round and reactive pupils present Neck: Neck: Yes normal visual inspection and Yes supple Resp: Effort & Inspection: normal respiratory effort and able to speak in complete sentences Auscultation: clear to auscultation bilaterally Cardio: Rate: regular rate Rhythm: regular rhythm Heart sounds: S1 normal heart sound present and S2 normal heart sound present GI: Palpation (GI): Soft to palpation and nontender Auscultation: normoactive bowel sounds : General: Yes no CVA tenderness Back/Spine/Pelvis: Back: no CVA tenderness Skin: General skin exam: elasticity normal and turgor normal Neuro: Other: right sided hemiparesis at baseline General: oriented to person, oriented to place, oriented to time, patient oriented x3, moves all extremities and CN's II-XI intact bilaterally Cranial nerves: Yes Equal, round and reactive pupils present Cognition (Neuro): normal cognition Extrem: General: Yes full ROM, Yes no pedal edema and Yes no calf tenderness Psych: Mental Status: mental status grossly normal Affect: normal affect Thought process: Normal thought process present Course Course Course Narrative: This is a rapid medical exam. Deferred additional HPI, ROS, PE to primary provider. 53 yo female w/ history of stroke, HLD, HTN, DM, seizures, and left breast mass here with intermittent chest pain x 2 weeks, nausea. Seen here 09/24 for same with negative workup. Per family patient now nauseas which made them concerned. WIll obtain labs, EKG, CXR VSS Medications Administered Discontinued Medications Generic Name Dose Route Start Last Admin Trade Name Freq PRN Reason Stop Dose Admin Ondansetron HCl 4 mg 09/27/23 22:20 09/27/23 22:28 Ondansetron Odt 4 Mg Tab.Inez SHEPPARDINGU 09/27/23 22:21 4 mg ONCE ONE Administration Medical Decision Making Medical Decision Making [facility] Narrative: Patient is a 53-year-old female with history of stroke, right-sided hemiparesis, DM, HTN, HLD, seizures, left breast mass presenting to the emergency department with complaint of chest pain for the past 2 weeks which has since resolved but today developed nausea. On exam patient is awake, A+Ox3, VS WNL, afebrile, physical exam findings as above. Given reported symptoms and physical exam findings, initial differential includes viral illness, gastritis, GERD. Unlikely ACS but given patient's report of chest pain over the past 2 weeks will obtain EKG, troponin, chest x-ray. Unlikely PE as d-dimer was negative on 09/24, and patient denies current chest pain or dyspnea. Patient was evaluated on 09/24 and cardiac workup was negative. Labs unremarkable, chronically elevated alk phos, negative troponin. Chest x-ray unremarkable. My interpretation is in agreement with the radiologist's interpretation. EKG shows sinus rhythm with PACs. HEART score of 4. Repeat troponin also negative. Viral swabs negative. Will refer patient to GI, advised her to follow up with PCP as well. Prescription for Zofran sent to pharmacy. Return precautions discussed at bedside with patient and mother. Patient and mother verbalized understanding of and agreement with plan. Differential Diagnosis Differential Diagnoses: The differential diagnosis associated with the presentation includes As per [facility]. Admission/Observation Consideration of admission/observation: Escalation of care including admission/observation considered Lab Data [facility] Lab Attestation statement: I reviewed the patient's lab results. As per MDM. 09/27/23 18:05 09/27/23 18:05 Labs: Lab Results 09/27/23 09/27/23 Range/Units 18:05 22:41 WBC 7.7 (4.8-10.8) X10*3/uL RBC 4.46 (4.20-5.50) X10*6/uL Hgb 13.2 (12.0-16.0) g/dl Hct 38.7 (37.0-47.0) % MCV 86.8 (80.0-98.0) fL MCH 29.6 (27.0-33.0) pg MCHC 34.1 (31.0-35.0) g/dl RDW 12.6 (11.0-16.0) % Plt Count 309 (160-400) X10*3/uL MPV 8.6 L (9.4-12.3) fL Immature Gran % (Auto) 0.1 (0.0-0.4) % Neut % (Auto) 48.0 (45-73) % Lymph % (Auto) 42.5 H (20-40) % [place] % (Auto) 6.2 (2-11) % Eos % (Auto) 2.8 (0-4) % Baso % (Auto) 0.4 (0-2) % Lymph # (Auto) 3.3 (1.2-4.9) X10*3/uL [place] # (Auto) 0.5 (0.1-1.2) X10*3/uL Eos # (Auto) 0.2 (0.0-0.4) X10*3/uL Baso # (Auto) 0.0 (0.0-0.2) X10*3/uL Abs Immat Gran (auto) 0.01 (0.00-0.03) X10*3/uL Absolute Neuts (auto) 3.7 (2.0-8.3) x10*3/uL Absolute Nucleated RBC 0.000 (0.0-0.012) X10*3/uL Nucleated RBC % (auto) 0.0 (0.0-0.2) /100WBC Sodium 140 (135-145) mmol/L Potassium 4.1 (3.3-5.1) mmol/L Chloride 103 (96-108) mmol/L Carbon Dioxide 25 (22-29) mmol/L Anion Gap 16 (12-20) BUN 12 (9-16) mg/dL Creatinine 0.94 (0.5-1.4) mg/dL Estim Creat Clear Calc 74.7 Estimated GFR > 60 Random Glucose 86 (60-115) mg/dL Calcium 10.2 D (8.4-10.2) mg/dL Total Bilirubin 0.5 (0.0-1.0) mg/dL Direct Bilirubin 0.2 (0.0-0.5) mg/dL AST 12 (5-31) U/L ALT 17 (0-31) U/L Alkaline Phosphatase 134 H (39-117) U/L Troponin I High Sens < 2.7 < 2.7 (<3.5-17.0) ng/L Total Protein 7.9 (6.5-8.0) g/dL Albumin 4.5 (3.5-5.0) g/dL Influenza Type A (PCR) NEGATIVE (Negative) Influenza Type B (PCR) NEGATIVE (Negative) RSV RNA Qual (PCR) NEGATIVE (Negative) SARS-CoV-2 RNA (RT-PCR) NEGATIVE (Negative) Independent Interpretation I performed an independent interpretation of an: EKG (sinus rhythm with PACs, rate 75bpm, normal TX interval and QTc) and Plain X-Ray Interpretation: Unremarkable CXR Radiology Impression Discussion of test interpretation with radiology: I have reviewed the radiologist's reading. Radiologist Impression: XR/XR chest 2V IMPRESSION: Unremarkable examination. External Record Review External record reviewed: Inpatient record, Office record and Outpatient record Prescription Management I considered prescription management with: Other Scores Heart Score History: -0- slightly suspicious ECG: -1- non specific repolarization disturbance Age: -1- >45 - <65 Risk factory: -2- 3 or more risk factors or treated atherosclerosis Troponin: -0- < or = normal limit Score: 4 Risk: 16.6% Discharge Plan Discharge Clinical Impression: Nausea Patient Disposition: Home, Self-Care Instructions: Acute Nausea and Vomiting (ED) Additional Instructions: You re-evaluated in the emergency department today for nausea. Your evaluation including EKG, labs, chest x-ray, viral testing were all normal. You are being prescribed Zofran for nausea, please use this as prescribed. You are being referred to GI for further evaluation of your symptoms. Please follow-up with your primary care provider as well. Return to the emergency department if you develop persistent vomiting, fever 100.4? F or greater, chest pain, shortness of breath or any other concerning symptoms. Prescriptions: New ondansetron 4 mg tablet,disintegrating 4 mg PO Q8H PRN (Reason: nausea and vomiting) Qty: 10 0RF No Action (DME) FreeStyle Lite Strips Strip See Rx Instructions .Route Qty: 50 5RF Rx Instructions: As directed checks 1 X/day (DME) blood-glucose meter [FreeStyle Lite Meter] Kit See Rx Instructions .Route Qty: 1 0RF Rx Instructions: As directed checks 1 X/day (DME) lancets [FreeStyle Lancets] 28 gauge [facility] [place] See Rx Instructions .Route Qty: 100 4RF Rx Instructions: As directed checks 1 X/day lamotrigine 150 mg tablet 150 mg PO BID 90 Days Qty: 180 1RF levetiracetam 1,000 mg tablet 1,000 mg PO BID Qty: 180 0RF atorvastatin 20 mg tablet 20 mg PO DAILY Qty: 90 1RF Trulicity 0.75 mg/0.5 mL pen injector 0.75 mg subcut QWEEK Qty: 2 3RF (DME) FreeStyle Jolene 2 [place] [facility] See Rx Instructions .MEDSUPPLY Qty: 1 0RF Rx Instructions: As directed (DME) FreeStyle Jolene 2 Sensor Kit See Rx Instructions .MEDSUPPLY Qty: 1 3RF Rx Instructions: As directed aspirin [Aspir-Siri] 325 mg tablet,delayed release (DR/EC) 325 mg PO DAILY Rx Instructions: Every other day multivitamin [One-A-Day Essential] Tablet 1 tab PO DAILY lisinopril 2.5 mg tablet 2.5 mg PO DAILY Rx Instructions: Every other day (DME) blood-glucose meter [Accu-Chek Cindy Plus Meter] [facility] See Rx Instructions .Route Qty: 1 0RF Rx Instructions: As directed [place] [facility] [place] [facility] [Provider Group]
--- NOTE | 2023-09-27 17:46 | ECG_ITS ---
Test Reason : CHEST PAIN Blood Pressure : / mmHG Vent. Rate : 075 BPM Atrial Rate : 075 BPM P-R Int : 142 ms QRS Dur : 070 ms QT Int : 352 ms P-R-T Axes : 033 025 015 degrees QTc Int : 393 ms Sinus rhythm with Sinus Arrhythmia Otherwise normal ECG When compared with ECG of 25-SEP-2023 10:49, No significant changes seen Referred By: Emilia Combs Electronically Signed By:BERKLEY RUDOLPH MD
[2023-09-27 18:21] LABS: MANUAL DIFF FLAG NO
[2023-09-27 18:30] LABS: Basophils Percent Auto 0.4 % (0-2); Eosinophils Absolute Auto 0.2 X10*3/uL (0.0-0.4); Eosinophils Percent Auto 2.8 % (0-4); Hematocrit 38.7 % (37.0-47.0); Hemoglobin 13.2 g/dl (12.0-16.0); Imm Gran Abs Auto 0.01 X10*3/uL (0.00-0.03); Imm Gran Pct Auto 0.1 % (0.0-0.4); Lymphocytes Absolute Auto 3.3 X10*3/uL (1.2-4.9); Lymphocytes Percent Auto 42.5 % (20-40); Mean Corpuscular HGB Conc 34.1 g/dl (31.0-35.0); Mean Corpuscular Hemoglobin 29.6 pg (27.0-33.0); Mean Corpuscular Volume 86.8 fL (80.0-98.0); Mean Platelet Volume 8.6 fL (9.4-12.3); Monocytes Absolute Auto 0.5 X10*3/uL (0.1-1.2); Monocytes Percent Auto 6.2 % (2-11); Neutrophils Absolute Auto 3.7 x10*3/uL (2.0-8.3); Platelet Count 309 X10*3/uL (160-400); Red Blood Count 4.46 X10*6/uL (4.20-5.50); Red Cell Distribution Width 12.6 % (11.0-16.0); White Blood Count 7.7 X10*3/uL (4.8-10.8)
[2023-09-27 18:46] LABS: Alanine Aminotransferase 17 U/L (0-31); Albumin Level 4.5 g/dL (3.5-5.0); Alkaline Phosphatase 134 U/L (39-117); Anion Gap 16 (12-20); Aspartate Amino Transferase 12 U/L (5-31); Bilirubin Direct 0.2 mg/dL (0.0-0.5); Bilirubin Total 0.5 mg/dL (0.0-1.0); Blood Urea Nitrogen 12 mg/dL (9-16); Calcium 10.2 mg/dL (8.4-10.2); Carbon Dioxide 25 mmol/L (22-29); Chloride 103 mmol/L (96-108); Creatinine Clr Calc Pharmacy 74.7; Estimated Glomerular Filt Rate > 60; Glucose Random 86 mg/dL (60-115); Potassium 4.1 mmol/L (3.3-5.1); Sodium 140 mmol/L (135-145); Total Protein 7.9 g/dL (6.5-8.0)
[2023-09-27 18:56] LABS: Troponin-I High Sensitivity < 2.7 ng/L (<3.5-17.0)
[2023-09-27] MEDS: Ondansetron ODT 4 MG TAB.RAPDIS TRANSLINGU (22:28)
[2023-09-27 23:07] LABS: Troponin-I High Sensitivity < 2.7 ng/L (<3.5-17.0)
[2023-09-27 23:24] LABS: Influenza A PCR NEGATIVE (Negative); Influenza B PCR NEGATIVE (Negative); Resp Syncy Virus RNA Qual PCR NEGATIVE (Negative); SARS COV2 PCR INHOUSE NEGATIVE (Negative)
== END 2023-09-28 01:05 | disposition home or self-care (01) ==
PROVIDERS: Nurse Practitioner Family; Registered Nurse Emergency; Emergency Provider Emergency Medicine; PCP Internal Medicine
DX: R07.89 Other chest pain (principal); R11.2 Nausea with vomiting, unspecified; Z11.52 Encounter for screening for COVID-19; Z20.822 Contact with and (suspected) exposure to COVID-19; Z79.899 Other long term (current) drug therapy
CPT/HCPCS: 0241U; 36415; 71046; 80048; 80076; 84484; 85025; 93005; 99283; 99284

== ENCOUNTER → 2023-09-27 17:46 | Outpatient (BNV) | payer MEDICARE, MEDICAID, SELFPAY | PROVIDERS: Emergency Provider Emergency Medicine; PCP Internal Medicine; Visit Provider Internal Medicine Cardiovascular Disease | DX: I49.9 Cardiac arrhythmia, unspecified (principal); R07.9 Chest pain, unspecified | CPT/HCPCS: 93010 ==

== ENCOUNTER 2023-10-28 13:44 | Outpatient (AMB) | payer MEDICARE, MEDICAID, SELFPAY ==
--- NOTE | 2023-10-28 13:49 | MHC.PC.OV ---
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 Accompanied by: Sister Allergies latex [LATEX] Allergy (Intermediate, Verified 10/28/23 14:00) Hives erythromycin base [ERYTHROMYCIN BASE] Allergy (Unknown, Verified 10/28/23 14:00) UNKNOWN Penicillins [PENICILLINS] Allergy (Unknown, Verified 10/28/23 14:00) UNKNOWN Medication List - Last Reconciled 10/28/23 by Stephanie Phipps MD aspirin (Aspir-Siri) 325 mg PO DAILY atorvastatin 20 mg PO DAILY blood sugar diagnostic (FreeStyle Lite Strips) As directed checks 1 X/day blood-glucose meter (Accu-Chek Cindy Plus Meter) As directed blood-glucose meter (FreeStyle Lite Meter kit) As directed checks 1 X/day dulaglutide (Trulicity) 0.75 mg (0.5 mL) subcut QWEEK flash glucose scanning reader (FreeStyle Jolene 2 [place]) As directed flash glucose sensor (FreeStyle Jolene 2 Sensor kit) As directed lamotrigine 150 mg PO BID 90 days lancets (FreeStyle Lancets) As directed checks 1 X/day levetiracetam 1,000 mg PO BID lisinopril 2.5 mg PO DAILY 90 days multivitamin (One-A-Day Essential tablet) 1 tab PO DAILY Tobacco use date assessed: 10/28/23 Dental Screening Dental Screen Date: 10/28/23 Did you have a dental visit in the last 12 months?: Yes Did you have a dental problem in the last 6 months where you did not have access to dental care?: No Was dental information given to patient?: Patient has dentist HPI HPI Comments History of Present Illness Details This is a 53-year-old female with diabetes mellitus type 2, hyperlipidemia, seizures, and 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 Last episode was last month in which she had to go to the ER for this matter. She had a barium swallow years ago and an endoscopy that could not be completed due to patient being awake and having pain while on the procedure. I will order another barium swallow and refer her to Gastroenterology. A1c within goal. Lipid panel was order and her LDL goal should be less than 70. Seizures stable with medications and this is follow by Nephrology. Had CVA in 2014 and since then walks with a cane due to right hemiparesis. Lives with sister which today is with her in her office visit. [facility] Medical History (Updated 10/28/23 @ 14:47 by Stephanie Phipps MD) Mild aphasia CVA (cerebral vascular accident) Diabetes Seizures Elevated cholesterol Hypertension Ecchymosis Encounter to establish care Hx of cyst of breast Surgical History Hx of colonoscopy History of partial hysterectomy History of thyroid surgery Family History (Updated 10/28/23 @ 14:06 by Stephanie Phipps MD) Mother Bone cancer Hypertension Diabetes Father Diabetes Hypertension Maternal Aunt Breast cancer, Onset Age: 49 Family/Other Mental health disorder Social History (Updated 10/28/23 @ 14:07 by Stephanie Phipps MD) Housing: Apartment Alcohol intake: never Patient Tobacco Use Status: Never used Tobacco e-Cigarette/Vaping Use: Never Used Second Hand Smoke Exposure: No service: No Current occupational status: unemployed Cognitive needs: Yes (cane ) Hearing needs: No Vision needs: Yes (glasses) Female Reproductive History Menstrual Age of Menarche: 12 Questionnaire PHQ-9 Over the last 2 weeks, how often have you been bothered by any of the following problems? 1. Little interest or pleasure in doing things: not at all 2. Feeling down, depressed, or hopeless: not at all 3. Trouble falling or staying asleep, or sleeping too much: not at all 4. Feeling tired or having little energy: not at all 5. Poor appetite or overeating: not at all 6. Feeling bad about yourself - or that you are a failure or have let yourself or your family down: not at all 7. Trouble concentrating on things, such as reading the newspaper or watching television: not at all 8. Moving or speaking so slowly that other people could have noticed. Or the opposite - being so fidgety or restless that you have been moving around a lot more than usual: not at all 9. Thoughts that you would be better off or of hurting yourself in some way: not at all Total score: 0 Depression Screening Interpretation: Negative Depression Screening Done: Yes 40868 - PHQ-9 Billing: Yes Source: Developed by Drs. Lamont Beltrán, Pati Jaimes, Bebeto Jerry and colleagues, with an educational lorena from [employer]. Thrive Questionnaire Date Thrive assessed: 10/28/23 I am a: Patient What is your living situation today?: I have a steady place to live Within the past 12 months, did the food you bought not last and you didn't have the money to get more?: Never true Within the past 12 months, did you worry whether your food would run out before you got money to buy more?: Never true Do you have trouble paying for medicines?: No Do you have trouble getting transportation to medical appointments?: No Do you have trouble paying your heating and electricity bill?: No Do you have trouble taking care of your child, family member or friend?: No Do you have trouble with day-to-day activities such as bathing, preparing meals, shopping, managing finances, etc.?: No Are you currently unemployed and looking for a job?: No Are you interested in more education?: No Please select the resources that you would like help with: None Currently or been in a relationship where the following occur: no concerns reported THRIVE Score: 0 AUDIT C Alcohol Use Questionnaire (AUDIT-C) 1. How often do you have a drink containing alcohol?: Never Total Score: 0 RAMESH-7 AMB Questionnaire RAMESH-7 Date RAMESH - 7 assessed: 10/28/23 Feeling nervous, anxious, or on edge: 0 = Not at all Not being able to stop or control worryin = Not at all Worrying too much about different things: 0 = Not at all Trouble relaxin = Not at all Being so restless that it is hard to sit still: 0 = Not at all Becoming easily annoyed or irritable: 0 = Not at all Feeling afraid as if something awful might happen: 0 = Not at all Total RAMESH-7 score (0-4 normal; 5-9 mild; 10-14 moderate; 15-21 severe): 0 Source: Developed by Drs. Lamont Beltrán, Pati Jaimes, Bebeto Jerry and colleagues, with an educational lorena from [employer]. RAMESH-7 Assessment Billing RAMESH-7 Assessment Tool: RAMESH-7 Assessment 68040 Review of Systems Const All systems reviewed & are unremarkable except as noted in HPI and below Eyes Reports no additional complaints, Denies change in vision and Denies other visual disturbances ENT Reports dysphagia Card Denies chest pain at rest, Denies chest pain with activity, Denies edema, Denies irregular heart rhythm, Denies claudication, Denies dyspnea, Denies dyspnea on exertion, Denies orthopnea, Denies paroxysmal nocturnal dyspnea and Denies slow heart rate Resp Denies cough, Denies dyspnea and Denies dyspnea on exertion GI Denies abdominal pain, Denies change in bowel habits, Reports dysphagia, Denies excessive flatus, Denies nausea and Denies vomiting Denies urinary incontinence, Denies urinary hesitancy and Denies urinary urgency Neuro Reports focal weakness Physical exam (Primary Care) Vital Signs: Last Vital Signs BP 118/70 10/28/23 13:50 BMI result Body Mass Index 30.8 Tobacco/Smoking Status: Tobacco use Status Tobacco use date assessed 10/28/23 10/28/23 13:55 Patient Tobacco Use Status Never used Tobacco 10/28/23 14:07 e-Cigarette/Vaping Use Never Used 10/28/23 14:07 PHQ-9: PHQ-9 Score PHQ-9: Total score 0 10/28/23 14:20 Depression Screening Interpretation: Negative Thrive Assessment: Date of Thrive Assessment Date Thrive assessed 10/28/23 10/28/23 13:55 Currently or been in a relationship where the following occur: no concerns reported Resp Effort & Inspection: normal respiratory effort Auscultation: clear to auscultation bilaterally Cardio Jugular venous distension: no JVD Rate: regular rate Rhythm: regular rhythm Heart sounds: S1 normal heart sound present and S2 normal heart sound present Neuro Gait exam (Neuro): Assisted gait required (cane) Motor exam (neuro): Abnormal motor strength present (5/5 left side, right upper limb 2/5, right lower limb 4/4) Results AMB Hemoglobin A1c AMB Hemoglobin A1c 6.8 % Last Edit by LA Robbins on 10/28/23 14:20 Results Reviewed Results Reviewed: Laboratory Last Values Hgb A1c (Clinic) 6.8 % (4.0-6.0) H 10/28/23 14:15 Assessment and Plan Assessment & Plan (1) Dysphagia: Code(s): R13.10 - Dysphagia, unspecified Plan: Barium swallow ordered. Referred to Gastroenterology. (2) CVA (cerebral vascular accident): Comment: 2014 Code(s): I63.9 - Cerebral infarction, unspecified Plan: Continue aspirin for secondary prophylaxis. LDL goal is less than 70. Blood pressure goal is less than 130/80. (3) Seizures: Code(s): R56.9 - Unspecified convulsions Plan: Continue Keppra and Lamictal. Follow-up with Neurology. (4) Diabetes mellitus: Code(s): E11.9 - Type 2 diabetes mellitus without complications Qualifiers: Diabetes mellitus type: type 2 Diabetes mellitus fpc insulin use: without joint terminal attack controller use Diabetes mellitus complication status: with hyperglycemia Qualified Code(s): E11.65 - Type 2 diabetes mellitus with hyperglycemia Plan: Continue Trulicity. A1c goal is equal or less than 7%. (5) Hemiparesis: Comment: Right-sided after CVA 11/2014 Code(s): G81.90 - Hemiplegia, unspecified affecting unspecified side Plan: Continue the use of a cane. (6) Hyperlipidemia: Code(s): E78.5 - Hyperlipidemia, unspecified Plan: Continue statins. Repeat lipid panel. LDL goal is less than 70. Orders: Orders Comprehensive [place]. Panel Fast Today I63.9 - Cerebral infarction, unspecified Lipid Panel Today E78.5 - Hyperlipidemia, unspecified Microalbumin, Random (w Creat) Today E11.9 - Type 2 diabetes mellitus without complications AMB Hemoglobin A1c Today E11.9 - Type 2 diabetes mellitus without complications FL barium swallow Today R13.10 - Dysphagia, unspecified Referrals Cardiology Referral I49.8 - Other specified cardiac arrhythmias Gastroenterology Referral R13.10 - Dysphagia, unspecified Coding Level of Care Code Est Pt Level 4 (23945) Diagnoses Dysphagia R13.10 CVA (cerebral vascular accident) I63.9 Seizures R56.9 Type 2 diabetes mellitus with hyperglycemia, without long-term current use of insulin E11.65 Diabetes mellitus type: type 2 Diabetes mellitus joint terminal attack controller insulin use: without joint terminal attack controller use Diabetes mellitus complication status: with hyperglycemia Hemiparesis G81.90 Hyperlipidemia E78.5 Additional Codes RAMESH-7 Assessment Billing - RAMESH-7 Assessment Tool: RAMESH-7 Assessment 76413 ([id number]) Time Spent (min) 28
[2023-10-28 13:50] VITALS: BP 118/70; BMI 30.8
== END 2023-10-28 14:16 | disposition home or self-care (01) ==
PROVIDERS: PCP Internal Medicine; Visit Provider Internal Medicine
DX: R13.10 Dysphagia, unspecified (principal); I69.351 Hemiplegia and hemiparesis following cerebral infarction affecting right dominant side; R56.9 Unspecified convulsions; E11.65 Type 2 diabetes mellitus with hyperglycemia; E78.5 Hyperlipidemia, unspecified
CPT/HCPCS: 83036; 99214

== ENCOUNTER 2023-10-30 09:02 | Outpatient (REF) | payer MEDICARE, MEDICAID, SELFPAY ==
[2023-10-30 11:35] LABS: Alanine Aminotransferase 17 U/L (0-31); Albumin Level 4.2 g/dL (3.5-5.0); Alkaline Phosphatase 125 U/L (39-117); Anion Gap 12 (12-20); Aspartate Amino Transferase 14 U/L (5-31); Bilirubin Total 0.4 mg/dL (0.0-1.0); Blood Urea Nitrogen 11 mg/dL (9-16); Calcium 9.4 mg/dL (8.4-10.2); Carbon Dioxide 26 mmol/L (22-29); Chloride 105 mmol/L (96-108); Cholesterol 127 mg/dL (<200); Estimated Glomerular Filt Rate > 60; Glucose Fasting 150 mg/dL (60-99); HDL Cholesterol 33 mg/dL (>40); Potassium 4.1 mmol/L (3.3-5.1); Sodium 139 mmol/L (135-145); Total Protein 7.2 g/dL (6.5-8.0)
[2023-10-30 11:49] LABS: LDL Cholesterol Calculated 85 mg/dL (<100); Triglycerides 47 mg/dL (<150)
[2023-10-30 12:30] LABS: Creatinine Urine 190.99 mg/dL; Microalbum/Creatinine Ratio Ur 62.3 ug/mg cr (<30)
== END 2023-10-30 09:03 | disposition home or self-care (01) ==
LOC: HO.LAB 09:02
PROVIDERS: PCP Internal Medicine; Visit Provider Internal Medicine
DX: E78.5 Hyperlipidemia, unspecified (principal); E11.9 Type 2 diabetes mellitus without complications; I63.9 Cerebral infarction, unspecified
CPT/HCPCS: 36415; 80053; 80061; 82043; 82570

== ENCOUNTER 2023-11-24 14:07 | Outpatient (AMB) | payer MEDICARE, MEDICAID, SELFPAY ==
--- NOTE | 2023-11-24 14:13 | A.OFFPC_ITS ---
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 Accompanied by: Sister Allergies latex [LATEX] Allergy (Intermediate, Verified 11/24/23 14:37) Hives erythromycin base [ERYTHROMYCIN BASE] Allergy (Unknown, Verified 11/24/23 14:37) UNKNOWN Penicillins [PENICILLINS] Allergy (Unknown, Verified 11/24/23 14:37) UNKNOWN Medication List - Last Reconciled 11/24/23 by Stephanie Phipps MD aspirin (Aspir-Siri) 325 mg PO DAILY atorvastatin 20 mg PO DAILY blood sugar diagnostic (FreeStyle Lite Strips) As directed checks 1 X/day blood-glucose meter (Accu-Chek Cindy Plus Meter) As directed blood-glucose meter (FreeStyle Lite Meter kit) As directed checks 1 X/day dulaglutide (Trulicity) 0.75 mg (0.5 mL) subcut QWEEK flash glucose scanning reader (FreeStyle Jolene 2 [place]) As directed flash glucose sensor (FreeStyle Jolene 2 Sensor kit) As directed lamotrigine 150 mg PO BID 90 days lancets (FreeStyle Lancets) As directed checks 1 X/day levetiracetam 1,000 mg PO BID lisinopril 2.5 mg PO DAILY 90 days multivitamin (One-A-Day Essential tablet) 1 tab PO DAILY Tobacco use date assessed: 10/28/23 Dental Screening Dental Screen Date: 10/28/23 HPI HPI Comments History of Present Illness Details This is a 53-year-old female with CVA with right hemiparesis and mild aphasia has residual deficit that happen 2015, diabetes mellitus type 2, seizures and hyperlipidemia that comes today accompanied by sister which is the metal riveter for follow-up on her conditions. She walks with a cane for gait stability due to her right hemiparesis. A1c within goal. Not had a seizure in over 3 months and this is follow by Neurology. LDL within goal. Has elevated microalbumin on lisinopril for this matter and she follows with Nephrology. Sister will call Nephrology for an appointment. No chest pain or shortness of breath. [facility] Medical History (Updated 10/28/23 @ 14:47 by Stephanie Phipps MD) Mild aphasia CVA (cerebral vascular accident) Diabetes Seizures Elevated cholesterol Hypertension Ecchymosis Encounter to establish care Hx of cyst of breast Surgical History Hx of colonoscopy History of partial hysterectomy History of thyroid surgery Family History Mother Bone cancer Hypertension Diabetes Father Diabetes Hypertension Maternal Aunt Breast cancer, Onset Age: 49 Family/Other Mental health disorder Social History Housing: Apartment Alcohol intake: never Patient Tobacco Use Status: Never used Tobacco e-Cigarette/Vaping Use: Never Used Second Hand Smoke Exposure: No service: No Current occupational status: unemployed Cognitive needs: Yes (cane ) Hearing needs: No Vision needs: Yes (glasses) Female Reproductive History Menstrual Age of Menarche: 12 Questionnaire Thrive Questionnaire Date Thrive assessed: 10/28/23 RAMESH-7 AMB Questionnaire RAMESH-7 Date RAMESH - 7 assessed: 10/28/23 Source: Developed by Drs. Lamont Beltrán, Pati Jaimes, Bebeto Jerry and colleagues, with an educational lorena from [employer]. Review of Systems Const All systems reviewed & are unremarkable except as noted in HPI and below Eyes Reports no additional complaints, Denies change in vision and Denies other visual disturbances Card Denies chest pain at rest, Denies chest pain with activity, Denies edema, Denies irregular heart rhythm, Denies claudication, Denies dyspnea, Denies dyspnea on exertion, Denies orthopnea, Denies paroxysmal nocturnal dyspnea and Denies slow heart rate Resp Denies cough, Denies dyspnea and Denies dyspnea on exertion Neuro Reports focal weakness Physical exam (Primary Care) Vital Signs: Last Vital Signs BP 122/70 11/24/23 14:14 BMI result Body Mass Index 30.1 Tobacco/Smoking Status: Tobacco use Status Tobacco use date assessed 10/28/23 11/24/23 14:18 Patient Tobacco Use Status Never used Tobacco 11/24/23 14:18 e-Cigarette/Vaping Use Never Used 11/24/23 14:18 Thrive Assessment: Date of Thrive Assessment Date Thrive assessed 10/28/23 11/24/23 14:18 Const Limitations: ambulation with cane Resp Effort & Inspection: normal respiratory effort Auscultation: clear to auscultation bilaterally Cardio Jugular venous distension: no JVD Rate: regular rate Rhythm: regular rhythm Heart sounds: S1 normal heart sound present and S2 normal heart sound present Neuro Speech: Expressive aphasia present Gait exam (Neuro): Assistive device used Motor exam (neuro): Abnormal motor strength present (5/5 left, 1/5 right upper limb, 4/5 right lower limb) Assessment and Plan Assessment & Plan (1) CVA (cerebral vascular accident): Comment: 2014 Code(s): I63.9 - Cerebral infarction, unspecified Plan: Continue aspirin. (2) Seizures: Code(s): R56.9 - Unspecified convulsions Plan: Continue Keppra. (3) Diabetes mellitus: Code(s): E11.9 - Type 2 diabetes mellitus without complications Qualifiers: Diabetes mellitus type: type 2 Diabetes mellitus fdc insulin use: without fdc use Diabetes mellitus complication status: with hyperglycemia Qualified Code(s): E11.65 - Type 2 diabetes mellitus with hyperglycemia Plan: Continue Trulicity. A1c goal is equal or less than 7%. (4) Hyperlipidemia: Code(s): E78.5 - Hyperlipidemia, unspecified Plan: Continue statins. LDL goal is less than 70. (5) Hemiparesis: Comment: Right-sided after CVA 11/2014 Code(s): G81.90 - Hemiplegia, unspecified affecting unspecified side Plan: Continue the use of a cane. (6) Microalbuminuria due to type 2 diabetes mellitus: Code(s): E11.29 - Type 2 diabetes mellitus with other diabetic kidney complication; R80.9 - Proteinuria, unspecified Plan: Follow-up with nephrology. Continue lisinopril. Orders: Orders Microalbumin, Random (w Creat) 4 Months E11.9 - Type 2 diabetes mellitus without complications Lipid Panel 4 Months E78.5 - Hyperlipidemia, unspecified Vitamin D 25-OH Total 4 Months E55.9 - Vitamin D deficiency, unspecified Comprehensive [place]. Panel Fast 4 Months I63.9 - Cerebral infarction, unspecified Coding Level of Care Code Est Pt Level 4 (27370) Diagnoses CVA (cerebral vascular accident) I63.9 Seizures R56.9 Type 2 diabetes mellitus with hyperglycemia, without long-term current use of insulin E11.65 Diabetes mellitus type: type 2 Diabetes mellitus fdc insulin use: without fdc use Diabetes mellitus complication status: with hyperglycemia Hyperlipidemia E78.5 Hemiparesis G81.90 Microalbuminuria due to type 2 diabetes mellitus E11.29; R80.9 Time Spent (min) 25
[2023-11-24 14:14] VITALS: BP 122/70; BMI 30.1
== END 2023-11-24 14:47 | disposition home or self-care (01) ==
PROVIDERS: PCP Nurse Practitioner Family; Visit Provider Internal Medicine
DX: E11.65 Type 2 diabetes mellitus with hyperglycemia (principal); R56.9 Unspecified convulsions; G81.91 Hemiplegia, unspecified affecting right dominant side; E11.29 Type 2 diabetes mellitus with other diabetic kidney complication; E78.5 Hyperlipidemia, unspecified; R80.9 Proteinuria, unspecified; I69.398 Other sequelae of cerebral infarction
CPT/HCPCS: 99214

== ENCOUNTER 2023-11-27 14:53 | Outpatient (REF) | payer MEDICARE, MEDICAID, SELFPAY ==
--- NOTE | ~2023-11-27 | MM_ITS ---
EXAMINATION: MM SCREENING DIGITAL BREAST TOMOSYNTHESIS, BILATERAL CLINICAL INFORMATION: Screening. Asymptomatic. COMPARISON: Mammography: This study is compared with prior exams dating back to 2019. TECHNIQUE: Digital breast tomosynthesis is performed in both the craniocaudal and mediolateral oblique views along with computer-aided detection (CAD). Synthesized 2D images are generated from the tomosynthesis. FINDINGS: There are scattered areas of fibroglandular density (ACR BI-RADS breast composition Category b). There are no significant masses, abnormal calcifications, or other abnormalities. There are postsurgical changes in the retroareolar region of the left breast. The previously noted upper outer quadrant right breast mass is no longer present. This was a cyst by ultrasound as shown in 2022. MM/MM tomosynthesis screening BI IMPRESSION: No mammographic evidence of malignancy. ASSESSMENT: BI-RADS BI-RADS 2 - Benign Findings RECOMMENDATION: Routine annual mammography screening. 1 year F/U This examination should not preclude the clinical evaluation of a suspicious palpable abnormality. This patient's information was entered into a reminder system with a target due date for their next mammogram.
== END 2023-11-27 14:54 | disposition home or self-care (01) ==
LOC: HO.MAMMO 14:53
PROVIDERS: PCP Internal Medicine; Visit Provider Internal Medicine
DX: Z12.31 Encounter for screening mammogram for malignant neoplasm of breast (principal)
CPT/HCPCS: 77063; 77067

== ENCOUNTER → 2023-11-27 15:00 | Outpatient (BNV) | payer MEDICARE, MEDICAID, SELFPAY | PROVIDERS: PCP Internal Medicine; Visit Provider Radiology Diagnostic Radiology | DX: Z12.31 Encounter for screening mammogram for malignant neoplasm of breast (principal) | CPT/HCPCS: 77063; 77067 ==

== ENCOUNTER 2023-12-28 08:52 | Outpatient (REF) | payer MEDICARE, MEDICAID, SELFPAY ==
--- NOTE | ~2023-12-28 | FL_ITS ---
EXAMINATION: XR FLUOROSCOPY UPPER GI WITH AIR CLINICAL INFORMATION: Dysphagia. History of stroke COMPARISON: None TECHNIQUE: Fluoroscopic air contrast upper GI examination was performed utilizing standard techniques with thin and thick barium and effervescent granules. Numerous spot images were obtained. FINDINGS: Lateral cine images of the oropharynx and hypopharynx demonstrate a delayed swallow mechanism with premature filling of the vallecula and piriform sinuses. No tracheal penetration, glottic or subglottic aspiration identified. No nasopharyngeal reflux present. Hypopharyngeal structures appear normal without evidence of mass or diverticulum. There was no significant cricopharyngeal achalasia. Small ventral disc osteophyte at C5-C6 is present without significant mass effect upon the superior esophagus or hypopharyngeal structures. There are paratracheal surgical clips in the region of the thyroid gland. Dual and single contrast images of the esophagus demonstrate normal caliber, contour, and mucosal pattern. No evidence of stricture, mass, or ulcerations identified. Esophageal peristalsis is mildly disorganized. A small type I hiatal hernia is present. No significant gastroesophageal reflux was seen during the course of the examination and on reflux views. Dual contrast and single contrast images of the stomach demonstrated normal contour and mucosal pattern without evidence of mass, ulceration, or other abnormality. Contrast freely passed into the gastric antrum and duodenal bulb without delay. Single and air-contrast images of the duodenal bulb demonstrate no abnormality. The duodenal sweep has a normal appearance, course, and mucosal fold appearance. The imaged proximal jejunum has a normal fold pattern and caliber. FLUOROSCOPY TIME: 4 minutes 29 seconds Number of Spot Images: 10 Number of Cine: 12 DOSE AREA PRODUCT: 2946 uGy-m2 (microgray-meter squared) FL/FL barium swallow with air IMPRESSION: 1. Delayed swallow mechanism with premature spilling of the vallecula and piriform sinuses. No definite penetration or aspiration was observed. 2. Mildly disorganized esophageal peristalsis. 3. Small type I hiatal hernia. This procedure was performed by Celio Pérez PA-C, and supervised by Dr. Major
== END 2023-12-28 08:53 | disposition home or self-care (01) ==
LOC: HO.XRAY 08:52
PROVIDERS: PCP Internal Medicine; Visit Provider Internal Medicine
DX: R13.10 Dysphagia, unspecified (principal)
CPT/HCPCS: 74221

== ENCOUNTER → 2023-12-28 08:55 | Outpatient (BNV) | payer MEDICARE, MEDICAID, SELFPAY | PROVIDERS: PCP Internal Medicine; Visit Provider Physician Assistant Surgical | DX: R13.10 Dysphagia, unspecified (principal) | CPT/HCPCS: 74246 ==

== ENCOUNTER 2024-01-26 15:06 | Outpatient (AMB) | payer MEDICARE, MEDICAID, SELFPAY ==
--- NOTE | 2024-01-26 15:07 | A.OFFVIS_ITS ---
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 [employer] Information [employer] Officer Required: No Wastewater Treatment Supervisor: Wastewater Treatment Supervisor Present Accompanied by: Sister Allergies latex [LATEX] Allergy (Intermediate, Verified 11/24/23 14:37) Hives erythromycin base [ERYTHROMYCIN BASE] Allergy (Unknown, Verified 11/24/23 14:37) UNKNOWN Penicillins [PENICILLINS] Allergy (Unknown, Verified 11/24/23 14:37) UNKNOWN Medication List - Last Reconciled 01/26/24 by Hammad Ramsey MD aspirin (Aspir-Siri) 325 mg PO DAILY atorvastatin 20 mg PO DAILY blood sugar diagnostic (FreeStyle Lite Strips) As directed checks 1 X/day blood-glucose meter (Accu-Chek Cindy Plus Meter) As directed blood-glucose meter (FreeStyle Lite Meter kit) As directed checks 1 X/day dulaglutide (Trulicity) 0.75 mg (0.5 mL) subcut QWEEK flash glucose scanning reader (FreeStyle Jolene 2 [place]) As directed flash glucose sensor (FreeStyle Jolene 2 Sensor kit) As directed lamotrigine 150 mg PO BID 90 days lancets (FreeStyle Lancets) As directed checks 1 X/day levetiracetam 1,000 mg PO BID lisinopril 2.5 mg PO DAILY 90 days multivitamin (One-A-Day Essential tablet) 1 tab PO DAILY HPI Comments Details: Virginie is here for cardiac evaluation. Many comorbidities. It seems she has a history of diabetes as well as dyslipidemia. She has also had a stroke in the past. 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 From a cardiac standpoint, no clear concerns. Within limits of her activity, she generally feels okay. Denies any smoking or drug use. [facility] Medical History (Updated 12/30/23 @ 19:54 by Stephanie Phipps MD) Mild aphasia CVA (cerebral vascular accident) Diabetes Seizures Elevated cholesterol Hypertension Ecchymosis Encounter to establish care Hx of cyst of breast Surgical History Hx of colonoscopy History of partial hysterectomy History of thyroid surgery Family History Mother Bone cancer Hypertension Diabetes Father Diabetes Hypertension Maternal Aunt Breast cancer, Onset Age: 49 Family/Other Mental health disorder Social History Housing: Apartment Alcohol intake: never Patient Tobacco Use Status: Never used Tobacco e-Cigarette/Vaping Use: Never Used Second Hand Smoke Exposure: No service: No Current occupational status: unemployed Cognitive needs: Yes (cane ) Hearing needs: No Vision needs: Yes (glasses) Female Reproductive History Menstrual Age of Menarche: 12 Review of Systems Const Denies chills, Denies daytime sleepiness, Denies fatigue, Denies fever(s), Denies lethargy, Denies snoring, Denies stops breathing during sleep, Denies weight gain, Denies weight loss and Denies other Eyes Denies loss of vision Card Denies chest pain, Denies irregular heart rhythm, Denies claudication, Denies leg edema, Denies lightheadedness, Denies palpitations, Denies dyspnea, Denies dyspnea on exertion, Denies orthopnea and Reports other Resp Denies cough, Denies excessive phlegm production, Denies dyspnea, Denies dyspnea on exertion and Denies snoring GI Denies abdominal pain, Denies hematochezia, Denies change in bowel habits, Denies nausea and Denies vomiting Denies dysuria Musc Denies arthralgias, Denies muscle weakness and Denies numbness Skin/Breast Reports as per HPI, Denies nail changes and Denies rash Neuro Denies loss of vision, Denies memory loss and Denies numbness Psych Reports anxiety, Denies depression and Denies memory loss Endo Denies fatigue and Denies palpitations Marcos/Lymph Denies easy bruising Physical Exam Vital Signs: Last Vital Signs Pulse 85 01/26/24 15:08 BP 112/60 01/26/24 15:08 BMI result Body Mass Index 30.2 Const General: comfortable and no acute distress Orientation/consciousness: patient oriented x3 HEENT Other: Unremarkable Head: Yes normal to inspection Neck Neck: Yes normal visual inspection Chest Chest palpation & inspection: normal inspection of the chest Resp Auscultation: clear to auscultation bilaterally Cardio Palpation: normal PMI Heart sounds: S1 normal heart sound present, S2 normal heart sound present, no gallops, no murmurs and no rubs GI Palpation (GI): Soft to palpation Back/Spine/Pelvis Other: unremarkable Skin General skin exam: no rashes or lesions noted Neuro General: patient oriented x3 Extrem General: Yes normal to inspection Psych Mental Status: mental status grossly normal Assessment & Plan Assessment & Plan (1) CVA (cerebral vascular accident): Comment: 2014 Code(s): I63.9 - Cerebral infarction, unspecified Category: Medical (2) Diabetes mellitus: Code(s): E11.9 - Type 2 diabetes mellitus without complications Category: Medical Qualifiers: Diabetes mellitus type: type 2 Diabetes mellitus care home insulin use: without care home use Diabetes mellitus complication status: with hyperglycemia Qualified Code(s): E11.65 - Type 2 diabetes mellitus with hyperglycemia (3) Hyperlipidemia: Code(s): E78.5 - Hyperlipidemia, unspecified Category: Medical Plan In the EKG, underlying sinus rhythm with sinus arrhythmia which is normal finding but otherwise unremarkable. Considering her many comorbidities as well as history of stroke, we will do a comprehensive cardiac workup. She has walking with a cane due to stroke and unlikely to exercise on the treadmill. We may not be able to do Lexiscan as well due to history of seizures. Hence to coronary CTA. Obtain echocardiogram. Follow-up after the above. Discussed with sister. Orders: Orders CT Cardiac Coronary Angio Today I25.10 - Atherosclerotic heart disease of [place] coronary artery without angina pectoris CA echo transthoracic complete Today I63.9 - Cerebral infarction, unspecified Basic Metabolic Panel Today E11.65 - Type 2 diabetes mellitus with hyperglycemia Coding Level of Care Code New Pt Level 4 (87640) Diagnoses CVA (cerebral vascular accident) I63.9 Type 2 diabetes mellitus with hyperglycemia, without long-term current use of insulin E11.65 Diabetes mellitus type: type 2 Diabetes mellitus care home insulin use: without care home use Diabetes mellitus complication status: with hyperglycemia Hyperlipidemia E78.5
[2024-01-26 15:08] VITALS: BP 112/60; PULSE 85; BMI 30.2
== END 2024-01-26 15:38 | disposition home or self-care (01) ==
PROVIDERS: PCP Internal Medicine; Visit Provider Internal Medicine
DX: I63.9 Cerebral infarction, unspecified (principal); E11.65 Type 2 diabetes mellitus with hyperglycemia; E78.5 Hyperlipidemia, unspecified
CPT/HCPCS: 99204

== ENCOUNTER → 2024-01-26 15:06 | Outpatient (BNVA) | payer MEDICARE, MEDICAID, SELFPAY | PROVIDERS: PCP Internal Medicine; Visit Provider Internal Medicine | DX: E11.65 Type 2 diabetes mellitus with hyperglycemia (principal); E78.5 Hyperlipidemia, unspecified; Z86.73 Personal history of transient ischemic attack (TIA), and cerebral infarction without residual deficits | CPT/HCPCS: 99202 ==

== ENCOUNTER → 2024-02-11 15:04 | Outpatient (REF) | payer MEDICARE, MEDICAID, SELFPAY ==
--- NOTE | 2024-02-11 15:07 | CA_ITS ---
Transthoracic Echocardiogram Patient (Last, First, Middle): Virginie [place], Gender: Female Date of : 1970 Age: 53 Procedure Date: 02/11/2024 Procedure Type: Transthoracic Echocardiogram Location: OP Height: 165.1 cm Weight: 81.65 kg BSA: 1.89 m2 Heart Rate: 87 bpm BP: 118 / 64 mmHg Education Professional: SB Referring MD: Hammad Ramsey MD Symptoms: I63.9 - Cerebral infarction, unspecified Study Quality: Adequate ECG Rhythm: Sinus Conclusions: - The left ventricular systolic function is normal. The calculated ejection fraction is 59% by biplane method. - No obvious valvular pathology seen on this study. Findings Left Ventricle Normal left ventricular cavity size. There is normal left ventricular wall thickness. The left ventricular systolic function is normal. The calculated ejection fraction is 59% by biplane method. There is no evidence of regional wall motion abnormalities. Diastolic function is normal for age. Right Ventricle Normal right ventricular cavity size. There is low normal right ventricular systolic function. Atria Both atria are normal in size. Aortic Valve There is a normal trileaflet aortic valve. There is no aortic valve stenosis. There is no aortic valve regurgitation. Mitral Valve The mitral valve appears normal. There is no mitral valve regurgitation. There is no mitral valve stenosis. Pulmonic Valve The pulmonic valve is likely normal. Tricuspid Valve Normal tricuspid valve structure. There is trace tricuspid valve regurgitation. There is no evidence of pulmonary hypertension. Great Vessels The asc aorta is normal in size. Venous The inferior vena cava was not well visualized. The inferior vena cava is normal in size. Pericardium/Pleural There is no evidence of pericardial effusion. Prior Study Comparison No significant change compared to prior study dated: 04/23/2019. Recommendations, Care & Conclusions No obvious valvular pathology seen on this study. Measurements 2D Linear Measurements IVSd: 0.98 0.6-0.9/0.6-1.0 cm LVIDd: 4.10 3.9-5.3/4.2-5.9 cm LVIDd Index: 2.17 2.4-3.2/2.2-3.1 cm/m2 LVIDs: 2.89 2.0-3.6 cm LVPWd: 1.02 0.7-1.1 cm LA Diam: 2.70 2.7-3.8/3.0-4.0 cm LAIDs Index: 1.43 1.5-2.3 cm/m2 LV Mass: 164.38 67-162/88-224 g LV Mass Index: 86.97 43-95/49-115 g/m2 LVOT Diam: 2.00 3.0+(-)1.3 cm 2D Systolic Function EF 4C: 64.00 >55% EF 2C: 52.00 >55% EF BiP: 58.80 >55% Mitral Valve MV Pk E: 0.69 MV PK A: 0.72 MV Decel Time: 179.00 E/A: 1.00 E'Lateral: 8.49 E'Medial: 5.66 E/E' Med: 12.20 E/E' Lat: 8.10 PHT: 52.00 MVA PHT: 4.23 Decel Juab: 3.85 Aortic Valve AoV Pk Perico: 1.29 AoV Pk Grad: 7.00 ROCCO: 2.29 LVOT LVOT Pk Perico: 0.93 LVOT Mn Perico: 0.60 LVOT VTI: 0.17 LVOT Pk Grad: 3.00 LVOT Mn Grad: 2.00 LVOT Diam: 2.00 LVOT Area: 3.14 Diastolic Function MV Pk E: 0.69 MV Pk A: 0.72 E/A: 1.00 E'Medial: 5.66 E/E' Med: 12.20 E' Laterial: 8.49 E/E' Lat: 8.10 Right Ventricle TAPSE (mm): 16.10 TVS' Perico: 9.25 Tricuspid Valve RA Press: 3.00 Great Vessels Aorta Sinus of Valsalva: 2.70 2.0-3.5 cm Ao Asc: 2.80 2.1-3.4 cm Pulmonary Veins Pulm Vein S/D 1.20 Pulmonary Valve PV Pk Perico: 0.90 Peak PV Grad: 3.00 Updated in Other Vendor System with Status of Final Hammad Ramsey MD electronically signed on 02/13/2024 10:47:57 AM with status of Final
== END ==
LOC: HO.CARD 15:04
PROVIDERS: PCP Internal Medicine; Visit Provider Internal Medicine
DX: I63.9 Cerebral infarction, unspecified (principal)
CPT/HCPCS: 93306

== ENCOUNTER → 2024-02-11 15:07 | Outpatient (BNV) | payer MEDICARE, MEDICAID, SELFPAY | PROVIDERS: PCP Internal Medicine; Visit Provider Internal Medicine | DX: I63.9 Cerebral infarction, unspecified (principal) | CPT/HCPCS: 93306 ==

== ENCOUNTER 2024-03-02 14:45 | Outpatient (REF) | payer MEDICARE, MEDICAID, SELFPAY ==
[2024-03-04 21:58] LABS: TS Negative Control Passed; TS Panel A 0; TS Panel B 0; TS Positive Control Passed; TSpotTB Negative (Negative)
== END 2024-03-02 14:46 | disposition home or self-care (01) ==
LOC: HO.LAB 14:45
PROVIDERS: PCP Internal Medicine; Visit Provider Internal Medicine
DX: Z11.1 Encounter for screening for respiratory tuberculosis (principal)
CPT/HCPCS: 36415; 86481

== ENCOUNTER 2024-03-28 15:17 | Outpatient (REF) | payer MEDICARE, MEDICAID, SELFPAY ==
[2024-03-28 17:12] LABS: Alanine Aminotransferase 20 U/L (0-31); Albumin Level 4.4 g/dL (3.5-5.0); Alkaline Phosphatase 166 U/L (39-117); Anion Gap 16 (12-20); Aspartate Amino Transferase 12 U/L (5-31); Bilirubin Total 0.2 mg/dL (0.0-1.0); Blood Urea Nitrogen 13 mg/dL (9-16); Carbon Dioxide 25 mmol/L (22-29); Chloride 104 mmol/L (96-108); Cholesterol 141 mg/dL (<200); Estimated Glomerular Filt Rate > 60; Glucose Fasting 153 mg/dL (60-99); HDL Cholesterol 33 mg/dL (>40); LDL Cholesterol Calculated 91 mg/dL (<100); Potassium 3.9 mmol/L (3.3-5.1); Sodium 141 mmol/L (135-145); Total Protein 7.7 g/dL (6.5-8.0); Triglycerides 89 mg/dL (<150)
[2024-03-28 17:34] LABS: Vitamin D 25-OH Total 47.6 ng/mL (>30)
[2024-03-28 18:16] LABS: Creatinine Urine 150.15 mg/dL; Microalbum/Creatinine Ratio Ur 33.9 ug/mg cr (<30)
[2024-03-31 06:39] LABS: TS Negative Control Passed; TS Panel A 0; TS Panel B 0; TS Positive Control Passed; TSpotTB Negative (Negative)
== END 2024-03-28 15:18 | disposition home or self-care (01) ==
LOC: HO.LAB 15:17
PROVIDERS: PCP Internal Medicine; Visit Provider Internal Medicine
DX: I63.9 Cerebral infarction, unspecified (principal); E78.5 Hyperlipidemia, unspecified; E11.9 Type 2 diabetes mellitus without complications; E55.9 Vitamin D deficiency, unspecified; Z11.1 Encounter for screening for respiratory tuberculosis
CPT/HCPCS: 36415; 80053; 80061; 82043; 82306; 82570; 86481

== ENCOUNTER 2024-03-30 15:30 | Outpatient (AMB) | payer MEDICARE, MEDICAID, SELFPAY ==
[2024-03-30 15:36] VITALS: BP 110/72; BMI 27.8
--- NOTE | 2024-03-30 15:36 | MHC.PC.OV ---
Vital Signs 03/30/24 15:36 Height 5 ft 5 in Weight 167 lb BMI 27.8 BP 110/72 Blood Pressure Location Lt brachial Position Sitting Intake Visit Reasons: bp, dm Email Marketing Processor Required: No Accompanied by: Sister Allergies dulaglutide [From Trulicity] Allergy (Intermediate, Verified 03/30/24 16:08) pruritus, swelling latex [LATEX] Allergy (Intermediate, Verified 03/30/24 15:56) Hives erythromycin base [ERYTHROMYCIN BASE] Allergy (Unknown, Verified 03/30/24 15:56) UNKNOWN Penicillins [PENICILLINS] Allergy (Unknown, Verified 03/30/24 15:56) UNKNOWN metformin Adverse Reaction (Intermediate, Uncoded 03/30/24 18:36) abdominal discomfort Medication List - Last Reconciled 03/30/24 by Stephanie Phipps MD aspirin (Aspir-Siri) 325 mg PO DAILY atorvastatin 20 mg PO DAILY blood sugar diagnostic (FreeStyle Lite Strips) As directed checks 1 X/day blood-glucose meter (Accu-Chek Cindy Plus Meter) As directed blood-glucose meter (FreeStyle Lite Meter kit) As directed checks 1 X/day dulaglutide (Trulicity) 0.75 mg (0.5 mL) subcut QWEEK flash glucose scanning reader (FreeStyle Jolene 2 [place]) As directed flash glucose sensor (FreeStyle Jolene 2 Sensor kit) As directed lamotrigine 150 mg PO BID 90 days lancets (FreeStyle Lancets) As directed checks 1 X/day levetiracetam 1,000 mg PO BID lisinopril 2.5 mg PO DAILY 90 days multivitamin (One-A-Day Essential tablet) 1 tab PO DAILY Tobacco use date assessed: 10/28/23 Dental Screening Dental Screen Date: 10/28/23 HPI HPI Comments History of Present Illness Details This is a 54-year-old female with diabetes mellitus type 2, hypertension, hyperlipidemia and seizures that comes today accompanied by sister which is the receiving specialist for follow-up on her conditions. A1c elevated. She has been using Trulicity for few months and has noticed that there is some local swelling and itchiness when she has the injection. Metformin cause abdominal side effects when use. I will start her on Ozempic. Side effects such as nausea, vomiting and abdominal pain were discussed. Blood pressure stable. LDL not on goal and I will increase atorvastatin from 20 mg to 40 mg. Has not had a seizure in over 3 months. Had history of CVA with right hemiparesis in upper limb more prominent than lower limb. [facility] Medical History (Updated 03/30/24 @ 18:34 by Stephanie Phipps MD) Mild aphasia CVA (cerebral vascular accident) Diabetes Seizures Elevated cholesterol Hypertension Ecchymosis Encounter to establish care Hx of cyst of breast Surgical History Hx of colonoscopy History of partial hysterectomy History of thyroid surgery Family History Mother Bone cancer Hypertension Diabetes Father Diabetes Hypertension Maternal Aunt Breast cancer, Onset Age: 49 Family/Other Mental health disorder Social History Housing: Apartment Alcohol intake: never Patient Tobacco Use Status: Never used Tobacco e-Cigarette/Vaping Use: Never Used Second Hand Smoke Exposure: No service: No Current occupational status: unemployed Cognitive needs: Yes (cane ) Hearing needs: No Vision needs: Yes (glasses) Female Reproductive History Menstrual Age of Menarche: 12 Questionnaire Thrive Questionnaire Date Thrive assessed: 10/28/23 RAMESH-7 AMB Questionnaire RAMESH-7 Date RAMESH - 7 assessed: 10/28/23 Source: Developed by Drs. Lamont Beltrán, Pati Jaimes, Bebeto Jerry and colleagues, with an educational lorena from [employer]. Review of Systems Const All systems reviewed & are unremarkable except as noted in HPI and below Card Denies chest pain at rest, Denies chest pain with activity, Denies edema, Denies irregular heart rhythm, Denies claudication, Denies dyspnea, Denies dyspnea on exertion, Denies orthopnea, Denies paroxysmal nocturnal dyspnea and Denies slow heart rate Resp Denies cough, Denies dyspnea and Denies dyspnea on exertion GI Denies abdominal pain, Denies change in bowel habits, Denies excessive flatus, Denies nausea and Denies vomiting Denies urinary incontinence, Denies urinary hesitancy and Denies urinary urgency Neuro Denies behavioral changes and Denies lack of coordination Psych Denies behavioral changes Physical exam (Primary Care) Vital Signs: Last Vital Signs BP 110/72 03/30/24 15:36 BMI result Body Mass Index 27.8 Tobacco/Smoking Status: Tobacco use Status Tobacco use date assessed 10/28/23 03/30/24 15:45 Patient Tobacco Use Status Never used Tobacco 03/30/24 15:45 e-Cigarette/Vaping Use Never Used 03/30/24 15:45 Thrive Assessment: Date of Thrive Assessment Date Thrive assessed 10/28/23 03/30/24 15:45 Resp Effort & Inspection: normal respiratory effort Auscultation: clear to auscultation bilaterally Cardio Jugular venous distension: no JVD Rate: regular rate Rhythm: regular rhythm Heart sounds: S1 normal heart sound present and S2 normal heart sound present Results AMB Hemoglobin A1c AMB Hemoglobin A1c 9.0 % Last Edit by LA Robbins on 03/30/24 15:45 Results Reviewed Results Reviewed: Laboratory Last Values Hgb A1c (Clinic) 9.0 % (4.0-6.0) H 03/30/24 15:32 Assessment and Plan Assessment & Plan (1) Diabetes mellitus: Code(s): E11.9 - Type 2 diabetes mellitus without complications Qualifiers: Diabetes mellitus type: type 2 Diabetes mellitus senior living insulin use: without long term care phlebotomist use Diabetes mellitus complication status: with hyperglycemia Qualified Code(s): E11.65 - Type 2 diabetes mellitus with hyperglycemia Plan: Discontinue Trulicity. Start Ozempic. A1c goal is equal or less than 7%. (2) Hyperlipidemia: Code(s): E78.5 - Hyperlipidemia, unspecified Plan: Increase atorvastatin from 20 mg to 40 mg. LDL goal is less than 70. Repeat lipid panel in 4 months. (3) Seizures: Code(s): R56.9 - Unspecified convulsions Plan: Continue Lamictal and Keppra. Follow-up with Neurology. (4) Hypertension: Code(s): I10 - Essential (primary) hypertension Plan: Continue lisinopril. Blood pressure goal is equal or less than 130/80. Orders: Orders Microalbumin, Random (w Creat) 4 Months E11.9 - Type 2 diabetes mellitus without complications Comprehensive [place]. Panel Fast 4 Months I63.9 - Cerebral infarction, unspecified Lipid Panel 4 Months E78.5 - Hyperlipidemia, unspecified AMB Hemoglobin A1c Today E11.65 - Type 2 diabetes mellitus with hyperglycemia Medications: New semaglutide (Ozempic) for 4 weeks 0.25 mg (0.368 mL) subcut QWEEK 4 weeks 1.472 mL 0RF E11.65 - Type 2 diabetes mellitus with hyperglycemia atorvastatin 40 mg PO BEDTIME 90 days 90 tabs 0RF Refilled blood-glucose meter (FreeStyle Lite Meter kit) As directed checks 1 X/day 1 ea 0RF E11.29 - Type 2 diabetes mellitus with other diabetic kidney complication, E11.9 - Type 2 diabetes mellitus without complications, R80.9 - Proteinuria, unspecified blood sugar diagnostic (FreeStyle Lite Strips) As directed checks 1 X/day 50 ea 5RF E11.9 - Type 2 diabetes mellitus without complications lancets (FreeStyle Lancets) As directed checks 1 X/day 100 ea 4RF E11.9 - Type 2 diabetes mellitus without complications Discontinued atorvastatin Discontinued Reason: Patient Completed Course 20 mg PO DAILY 90 tabs 1RF E78.5 - Hyperlipidemia, unspecified Coding Level of Care Code Est Pt Level 4 (23016) Complex EM visit Add On G2211 Diagnoses Type 2 diabetes mellitus with hyperglycemia, without long-term current use of insulin E11.65 Diabetes mellitus type: type 2 Diabetes mellitus long term care phlebotomist insulin use: without senior living use Diabetes mellitus complication status: with hyperglycemia Hyperlipidemia E78.5 Seizures R56.9 Hypertension I10 Time Spent (min) 24
== END 2024-03-30 16:14 | disposition home or self-care (01) ==
PROVIDERS: PCP Internal Medicine; Visit Provider Internal Medicine
DX: E11.65 Type 2 diabetes mellitus with hyperglycemia (principal); E78.5 Hyperlipidemia, unspecified; R56.9 Unspecified convulsions; I10 Essential (primary) hypertension
CPT/HCPCS: 83036; 99214; G2211

== ENCOUNTER 2024-04-07 14:39 | Outpatient (AMB) | payer MEDICARE, MEDICAID, SELFPAY ==
[2024-04-07 14:48] VITALS: BP 108/72; PULSE 88; BMI 29.7
--- NOTE | 2024-04-07 14:48 | A.OFFVIS_ITS ---
Vital Signs 04/07/24 14:48 Height 5 ft 5 in Weight 178 lb 9.191 oz BMI 29.7 BP 108/72 Blood Pressure Location Lt brachial Position Sitting Pulse 88 Pulse Source Pulse Oximeter Intake Visit Reasons: f/up cta/ echo HS Commutator Operator Required: No Patient Account Analyst: Patient Account Analyst Present Allergies dulaglutide [From Trulicity] Allergy (Intermediate, Verified 04/07/24 14:52) pruritus, swelling latex [LATEX] Allergy (Intermediate, Verified 04/07/24 14:52) Hives erythromycin base [ERYTHROMYCIN BASE] Allergy (Unknown, Verified 04/07/24 14:52) UNKNOWN Penicillins [PENICILLINS] Allergy (Unknown, Verified 04/07/24 14:52) UNKNOWN metformin Adverse Reaction (Intermediate, Uncoded 04/07/24 14:52) abdominal discomfort Medication List - Last Reconciled 04/07/24 by LORETTA Soni aspirin (Aspir-Siri) 325 mg PO DAILY atorvastatin 40 mg PO BEDTIME 90 days blood sugar diagnostic (FreeStyle Lite Strips) As directed checks 1 X/day blood-glucose meter (Accu-Chek Cindy Plus Meter) As directed blood-glucose meter (FreeStyle Lite Meter kit) As directed checks 1 X/day flash glucose scanning reader (FreeStyle Jolene 2 [place]) As directed flash glucose sensor (FreeStyle Jolene 2 Sensor kit) As directed lamotrigine 150 mg PO BID 90 days lancets (FreeStyle Lancets) As directed checks 1 X/day levetiracetam 1,000 mg PO BID lisinopril 2.5 mg PO DAILY 90 days multivitamin (One-A-Day Essential tablet) 1 tab PO DAILY tirzepatide (Mounjaro) 2.5 mg (0.5 mL) subcut QWEEK 4 weeks HPI HPI f/up cta/ echo HS: Details: Virginie is a 54-year-old female with past medical history of hypertension, hyperlipidemia, diabetes, carotid dissection with CVA 2014 who underwent cardiac evaluation with echocardiogram and CTA of the coronary arteries and now presents for follow-up. Today she reports that she has no chest discomfort or shortness of breath. Her SCHEDULER MAINTENANCE is present and states that she had been experiencing a shortness of breath symptom a few months ago however not recent. No clear cardiac concerns at present. With her prior CVA she has right-sided hemiparesis and speech difficulties. She ambulates with a cane. Her activity is limited by this. [facility] Medical History Mild aphasia CVA (cerebral vascular accident) Diabetes Seizures Elevated cholesterol Hypertension Ecchymosis Encounter to establish care Hx of cyst of breast Surgical History Hx of colonoscopy History of partial hysterectomy History of thyroid surgery Family History Mother Bone cancer Hypertension Diabetes Father Diabetes Hypertension Maternal Aunt Breast cancer, Onset Age: 49 Family/Other Mental health disorder Social History Housing: Apartment Alcohol intake: never Patient Tobacco Use Status: Never used Tobacco e-Cigarette/Vaping Use: Never Used Second Hand Smoke Exposure: No service: No Current occupational status: unemployed Cognitive needs: Yes (cane ) Hearing needs: No Vision needs: Yes (glasses) Female Reproductive History Menstrual Age of Menarche: 12 Review of Systems Const All systems reviewed & are unremarkable except as noted in HPI and below ENT Denies dizziness Card Denies chest pain, Denies chest pain at rest, Denies chest pain with activity, Denies rapid heart rate, Denies pedal edema, Denies edema, Denies leg edema, Denies lightheadedness, Denies palpitations, Reports dyspnea, Denies dyspnea on exertion and Denies orthopnea Resp Denies cough, Reports dyspnea and Denies dyspnea on exertion GI Denies hematochezia and Denies change in stool character Musc Details: right sided weakness Reports abnormal gait, Reports limited range of motion, Denies muscle cramps, Reports muscle weakness, Denies numbness, Denies radiating pain into limb, Denies stiffness and Denies tingling Neuro Reports abnormal gait, Denies dizziness, Denies numbness and Denies tingling Endo Denies palpitations Physical Exam Vital Signs: Last Vital Signs Pulse 88 04/07/24 14:48 BP 108/72 04/07/24 14:48 BMI result Body Mass Index 29.7 Const General: cooperative, healthy appearing, comfortable and no acute distress Orientation/consciousness: patient oriented x3 Neck Neck: Yes normal visual inspection Resp Effort & Inspection: normal respiratory effort Auscultation: clear to auscultation bilaterally, no rales, no rhonchi and no wheezes Cardio Rate: regular rate Rhythm: regular rhythm Heart sounds: S1 normal heart sound present, S2 normal heart sound present, no murmurs and no rubs Skin General skin exam: no rashes or lesions noted Neuro General: patient oriented x3 Extrem General: Yes normal to inspection and No no pedal edema Psych Other: wearing brace on right arm and right leg, ambulates with cane, speech clear, has some expressive aphagia and forgetfullness noted Appearance: grossly normal Mental Status: mental status grossly normal Assessment & Plan Assessment & Plan (1) Shortness of breath: Code(s): R06.02 - Shortness of breath Category: Medical Plan: Patient with history of CVA and multiple cardiac risk factors who had some vague report of shortness of breath versus possible discomfort in the chest according to SCHEDULER MAINTENANCE, months ago. She has not had any recent complaints or concerns. She has no cardiac history. EKG done last visit showing sinus rhythm with sinus arrhythmia which is normal. An echocardiogram done 02/11/2024 showed EF 59%, no valve abnormalities or reported regional wall motion abnormalities. A CTA of the coronary arteries was done on 02/04/2024 showing no evidence of hemodynamically significant coronary artery disease, no definite plaque or st enosis was identified. Test results reviewed with her in detail. Offered reassurance that no concerning cardiac findings identified. Signs and symptoms of angina reviewed. Continue with risk factor modification including good blood sugar, blood pressure and cholesterol control. Cardiology follow-up p.r.n.. (2) Hypertension: Code(s): I10 - Essential (primary) hypertension Category: Medical Plan: [place] blood pressure goal less than 130/85. Blood pressure currently 108/72. No med changes made. (3) Hyperlipidemia: Code(s): E78.5 - Hyperlipidemia, unspecified Category: Medical Plan: [place] LDL goal less than 70 in patient with diabetes. Labs done 03/28/2024 shows LDL 91. She is on atorvastatin 80 mg daily. Recommend increase in atorvastatin dose. This is followed by her PCP. (4) Diabetes mellitus: Code(s): E11.9 - Type 2 diabetes mellitus without complications Category: Medical Qualifiers: Diabetes mellitus complication status: with hyperglycemia Diabetes mellitus rn long term care insulin use: without fci use Diabetes mellitus type: type 2 Qualified Code(s): E11.65 - Type 2 diabetes mellitus with hyperglycemia Plan: Hemoglobin A1c goal less than 7. Labs from 03/30/2024 showed hemoglobin A1c 9. Prior level 10/28/2023 hemoglobin A1c 6.8. Followed by PCP. Plan Time spent on chart review, documentation, interview and assessment Coding Level of Care Code Est Pt Level 3 (60163) Diagnoses Shortness of breath R06.02 Hypertension I10 Hyperlipidemia E78.5 Type 2 diabetes mellitus with hyperglycemia, without long-term current use of insulin E11.65 Diabetes mellitus complication status: with hyperglycemia Diabetes mellitus rn long term care insulin use: without rn long term care use Diabetes mellitus type: type 2 Time Spent (min) 24
== END 2024-04-07 15:17 | disposition home or self-care (01) ==
PROVIDERS: PCP Internal Medicine; Visit Provider Nurse Practitioner Family
DX: R06.02 Shortness of breath (principal); I10 Essential (primary) hypertension; E78.5 Hyperlipidemia, unspecified; E11.65 Type 2 diabetes mellitus with hyperglycemia
CPT/HCPCS: 99213

== ENCOUNTER → 2024-04-07 14:39 | Outpatient (BNVA) | payer MEDICARE, MEDICAID, SELFPAY | PROVIDERS: PCP Internal Medicine; Visit Provider Nurse Practitioner Family | DX: R06.02 Shortness of breath (principal); I10 Essential (primary) hypertension; E78.5 Hyperlipidemia, unspecified; E11.65 Type 2 diabetes mellitus with hyperglycemia | CPT/HCPCS: 99212 ==

== ENCOUNTER 2024-04-18 13:16 | Outpatient (AMB) | payer MEDICARE, MEDICAID, SELFPAY ==
--- NOTE | 2024-04-18 13:19 | A.OFFVIS_ITS ---
Vital Signs 04/18/24 13:20 Height 5 ft 5 in Weight 178 lb 9.191 oz BMI 29.7 BP 112/62 Blood Pressure Location Lt brachial Position Sitting Pulse 88 Intake Visit Reasons: Dysphagia - OCTOBER PATIENT Intake Note: Virginie presents in the office as a follow up for Dysphagia. CC: She is feeling okay and at the time of the referral she felt like there was something stuck in her throat. Does not happen often. This would be the second time in in 2 years this has had happened to her. Prevention Specialist Required: No Allergies dulaglutide [From Trulicity] Allergy (Intermediate, Verified 04/18/24 13:26) pruritus, swelling latex [LATEX] Allergy (Intermediate, Verified 04/18/24 13:26) Hives erythromycin base [ERYTHROMYCIN BASE] Allergy (Unknown, Verified 04/18/24 13:26) UNKNOWN Penicillins [PENICILLINS] Allergy (Unknown, Verified 04/18/24 13:26) UNKNOWN metformin Adverse Reaction (Intermediate, Uncoded 04/18/24 13:26) abdominal discomfort HPI HPI Dysphagia - OCTOBER PATIENT: Details: 54 yr old f here for follow up She was seeing October for c diff colitis, colonoscopy was fair prep, plan to rept 5 yrs More recently having trouble with swallowing she had pain on swallowing but not now she did have stroke 2017, residual weakness in right arm and leg she had ba swallow with dysmotility and delayed swallowing with premature spilling into the vallecula, no definite aspiration She has difficulty expressing exactly what her symptoms are, she denies nasal regurgitation no chest pain no abdominal pain no nausea or vomiting EXAM: GENERAL: The patient is well developed and nontoxic. VITAL SIGNS:see workflow HEENT: Nonicteric sclerae, PERRLA, EOMI. Oropharynx clear. Moist mucous membranes. Conjunctivae appear well perfused. No thyroid mass. CHEST: Chest wall is nontender. HEART: Regular rate and rhythm without murmurs. LUNGS: Clear to auscultation bilaterally. ABDOMEN: Soft, positive bowel sounds, nontender, no organomegaly.no flank tenderness SKIN: No rash, no excessive bruising, petechiae, or purpura. NEUROLOGIC: right facial droop, right sided hemiparesis Psych: slight flat affect A/P: 1/ ? oral pharyngeal dysphagia, related to residual neuro deficit, or from dysmotility 2/2 reflux, history limited from patient PLAN: 1/ trial of PPI 2/ MBS and SALT assessment 3/ hold on EGD for the moment [facility] Medical History Mild aphasia CVA (cerebral vascular accident) Diabetes Seizures Elevated cholesterol Hypertension Ecchymosis Encounter to establish care Hx of cyst of breast Surgical History Hx of colonoscopy History of partial hysterectomy History of thyroid surgery Family History Mother Bone cancer Hypertension Diabetes Father Diabetes Hypertension Maternal Aunt Breast cancer, Onset Age: 49 Family/Other Mental health disorder Social History Housing: Apartment Alcohol intake: never Patient Tobacco Use Status: Never used Tobacco e-Cigarette/Vaping Use: Never Used Second Hand Smoke Exposure: No service: No Current occupational status: unemployed Cognitive needs: Yes (cane ) Hearing needs: No Vision needs: Yes (glasses) Female Reproductive History Menstrual Age of Menarche: 12 Physical Exam Vital Signs: Last Vital Signs Pulse 88 04/18/24 13:20 BP 112/62 04/18/24 13:20 BMI result Body Mass Index 29.7 Assessment & Plan Assessment & Plan (1) Abnormal swallowing: Code(s): R13.10 - Dysphagia, unspecified Category: Medical Plan: see above Orders: Orders [place] barium swallow modified Today R13.10 - Dysphagia, unspecified Medications: New pantoprazole 40 mg PO DAILY 90 tabs 2RF Coding Level of Care Code Est Pt Level 4 (12022) Diagnoses Abnormal swallowing R13.10
[2024-04-18 13:20] VITALS: BP 112/62; PULSE 88; BMI 29.7
== END 2024-04-18 14:01 | disposition home or self-care (01) ==
PROVIDERS: PCP Internal Medicine; Visit Provider Internal Medicine Gastroenterology
DX: R13.10 Dysphagia, unspecified (principal)
CPT/HCPCS: 99214

== ENCOUNTER → 2024-04-18 13:16 | Outpatient (BNVA) | payer MEDICARE, MEDICAID, SELFPAY | PROVIDERS: PCP Internal Medicine; Visit Provider Internal Medicine Gastroenterology | DX: R13.10 Dysphagia, unspecified (principal) | CPT/HCPCS: 99212 ==

== ENCOUNTER → 2024-05-18 14:30 | Outpatient (BNV) | payer MEDICARE, MEDICAID, SELFPAY | PROVIDERS: PCP Internal Medicine; Visit Provider Physician Assistant Surgical | DX: R13.10 Dysphagia, unspecified (principal) | CPT/HCPCS: 74230 ==

== ENCOUNTER 2024-05-18 14:32 | Outpatient (REF) | payer MEDICARE, MEDICAID, SELFPAY ==
--- NOTE | ~2024-05-18 | FL_ITS ---
EXAMINATION: Modified Barium Swallow CLINICAL INFORMATION: Dysphagia COMPARISON: None TECHNIQUE: Modified barium swallow was performed under lateral fluoroscopy with patient in standing position. Different consistency of barium was administered by the speech therapist. FINDINGS: Laryngeal penetration is seen with thin consistency barium down to the level of the true vocal cords. No subglottic aspiration was observed. FLUOROSCOPY TIME: 2 minutes 13 seconds Number of Spot Images: N/A DOSE AREA PRODUCT: 1074 uGy-m2 (microgray-meter squared) FL/FL Modified Barium Swallow IMPRESSION: 1. Laryngeal penetration is seen with thin consistency barium down to level of the true vocal cords. No subglottic aspiration was observed. Refer to the speech therapy report for further clarification This procedure was performed by Celio Pérez PA-C, and supervised by Dr. Major Electronically signed by: Sal Major MD 05/30/2024 02:24 PM RAMIRO SMITH
--- NOTE | 2024-05-19 13:26 | MHC.SL.IMP ---
Date of Plan of Treatment: 05/18/24 Onset of Symptoms/Illness: 05/18/20 Date Treatment Started: 05/18/24 Admitting Diagnosis: Dysphagia Primary Speech & Language Diagnosis: R13.12 Oropharyngeal Phase Dysphagia Reason for Today's Visit: 85166 Modified Barium Swallow Study Comments: ?abn swallowing, ba swallow with premature spilling, hx of stroke with residual deficit? Pre-evaluation Dietary Consistencies: Regular Pre-evaluation Liquid Consistency: Thin Pre-evaluation Medication Administration: Whole with Liquid Medical History: Modified Barium Swallow Study Fluoroscopic Evaluation of Swallowing Function CPT Code 73992 Evaluation Year: 2023 Reason for Study: Difficulty swallowing Referring Physician: Jean Paul Richardson MD Evaluating Clinician: Leilani Suarez MA, CCC-HOSPICE COORDINATOR Study Number: 1 Patient Name: Virginie Canada Status: Outpatient, Ambulatory/Assisted Age: 54 Gender: Female Medical History Medical History Mild aphasia CVA (cerebral vascular accident) Diabetes Seizures Elevated cholesterol Hypertension Ecchymosis Encounter to establish care Hx of cyst of breast Surgical History Hx of colonoscopy History of partial hysterectomy History of thyroid surgery Current (pre-evaluation) Intake/Diet: Route: PO Diet Grade: Regular Liquid Consistencies: Thin Pre-Study Functional Oral Intake Scale (FOIS): 7- Total oral intake with no restrictions Pain: None reported at time of study SUBJECTIVE: Patient is a 54 year old female referred for a modified barium swallow study (MBSS) by Jean Paul Richardson MD from the [facility] Gastroenterology office. She was accompanied to this exam by her sister, Raine, who assisted in providing additional background history. Patient has history of CVA in 2017 with residual right arm and leg weakness and mild aphasia. Patient reports feeling like something is stuck in her throat, but says that this does not happen often. She has had painful swallowing in the past, but no longer experiences this. Patient did have a Barium Swallow X-Ray this past December which revealed a delayed swallow with premature spilling to the valleculae and pyriforms, no aspiration or penetration, mildly disorganized esophageal peristalsis, and small type 1 hiatal hernia. Oral Motor Exam Mouth Occlusion: Normal Oral-Facial Teeth Characteristics: Intact/Normal Oral-Facial Lip Pucker Description: Normal Oral-Facial Smile (Lips) Description: Normal Oral-Facial Puff Cheeks Description: Normal Tongue Excursion Description: Normal Tongue Range of Movement Description: Normal Tongue Speed of Movement Description: Normal Tongue Strength of Movement (against opposing pressure): Normal Tongue Movement Characteristics: Normal/Absent Is patient able to manage secretions?: Yes Is patient able to produce volitional cough?: Yes Food and Liquid Trials: Oral Impairment: Lip Closure: 1=Interlabial escape; no progression to anterior tip Oral Impairment: Tongue Control During Bolus Hold: 2=Posterior escape of less than half of bolus Oral Impairment: Bolus Preparation/Mastication: 1=Slow prolonged chewing/mashing with complete re-collection Oral Impairment: Bolus Transport/Lingual Motion: 3=Repetitive/disorganized tongue motion Oral Impairment: Oral Residue: 3=Majority of bolus remaining Oral Impairment:Initiation of Pharyngeal Swallow: 3=Bolus head in pyriforms Pharyngeal Impairment: Soft Palate Elevation: 0=No bolus between soft palate (SP)/pharyngeal wall (PW) Pharyngeal Impairment: Laryngeal Elevation: 1=Partial thyroid cartilage/arytenoids to epiglottic petiole movement Pharyngeal Impairment: Anterior Hyoid Excursion: 1=Partial anterior movement Pharyngeal Impairment: Epiglottic Movement: 1=Partial inversion Pharyngeal Impairment: Laryngeal Vestibular Closure:: 1=Incomplete: narrow column air/contrast in laryngeal vestibule Pharyngeal Impairment: Pharyngeal Stripping Wave: 1=Present: diminished Pharyngeal Impairment: Pharyngeal Contraction: Did not test Pharyngeal Impairment: Pharyngoesophageal Segment Openin=Partial distention/partial duration: partial obstruction of flow Pharyngeal Impairment: Tongue Base (TB) Retraction: 2=Narrow column of contrast/air between TB and posterior PW Pharyngeal Impairment: Pharyngeal Residue: 1=Trace residue within or on pharyngeal structures Pharyngeal Impairment: Esophageal Clearance Upright Position: Did not test Impressions and Recommendations Clinical Observations: OBJECTIVE: Time-out: performed at 15:00 Evaluation Start: 14:30; Stop: 14:35 Patient Positioning: Standing Viewing Planes: LATERAL ONLY Contrast: MBSImP? Standardized Protocol using commercially prepared, standardized Barium viscosities, including: Varibar? THIN LIQUID (40% w/v, <15 cps) , Varibar? NECTAR (40% w/v, <150-450 cps) , Varibar? PUDDING (40% w/v, <5031-3456 cps) , 1/2 Shortbread Cookie (1 x1 x.25 ) MBSImP ID: [id number] MBSImP Results: Lip closure for intraoral bolus containment resulted in interlabial escape, without progression to the anterior lip. Tongue control during bolus hold resulted in posterior escape of less than half of the bolus. Bolus preparation and mastication resulted in slow, prolonged chewing/mashing but with complete re-collection. Bolus transport/lingual motion was with repetitive/disorganized motion of the tongue. Oral residue was the majority of the bolus. Initiation of the pharyngeal swallow occurred when the bolus head was in the pyriform sinuses. Soft palate elevation resulted in no bolus between the soft palate and the pharyngeal wall. Laryngeal elevation was decreased, with partial superior movement of the thyroid cartilage/partial approximation of the arytenoids to the epiglottic petiole. Anterior hyoid excursion demonstrated partial anterior movement. Epiglottic movement resulted in partial inversion. Laryngeal vestibular closure was incomplete, with a narrow column of air/contrast noted within the laryngeal vestibule at the height of the swallow. Pharyngeal stripping wave was present, but diminished. Pharyngeal contraction could not be determined due to logistical reasons not related to physiologic impairment. Pharyngoesophageal segment opening demonstrated partial distension/partial duration, with partial obstruction of bolus flow. Tongue base retraction allowed a narrow column of contrast or air between the retracted tongue base and the posterior pharyngeal wall. Pharyngeal residue was a trace within or on pharyngeal structures. Esophageal clearance in the upright position could not be assessed due to logistical reasons not related to physiologic impairment. Oral Impairment Score: 12 Pharyngeal Impairment Score: 8 (absence of score, component 13) Esophageal Impairment Score: --- (absence of score, component 17) Laryngeal Penetration and Aspiration: Neither penetration nor aspiration was observed in today's study with Cookie, Pudding-thick, [place]-thick. Penetration was observed in today's study. Thin Contrast entered the airway, contacted the vocal folds, and was ejected from the airway. ASSESSMENT: Clinician Assessment: This exam was conducted by the radiologist and the speech pathologist. Patient was standing for lateral view and was able to self-feed. She trialed the following consistencies: thin (individual cup), nectar thick (individual cup), puree, ground, and regular solid. There was interlabial escape of trace amount of liquid, but no anterior spilling beyond the vermilion border. Reduced tongue control with premature posterior escape of bolus, which collected in the valleculae and pyriform sinuses before swallow was initiated. Mastication was slow and prolonged. Posterior lingual transport was delayed, at times with repetitive tongue rocking movement. Note reduced tongue base retraction. After initial swallow with liquid, patient held most of the bolus in the oral cavity. Patient swallowed 4-5 times with each sip of liquid and 2 times with bites of puree to clear the oral cavity. Good oral clearance with more advanced solids. Pharyngeal swallow trigger was significantly delayed, initiated as the bolus head reached the pyriform sinuses. No evidence of nasopharyngeal reflux. Incomplete laryngeal elevation with partial epiglottic inversion and incomplete laryngeal vestibular closure. There was an episode of deep penetration on sip of thin liquid. Thin contrast entered the airway, made contact with the vocal folds, and was ejected from the airway with a cued throat clear. No evidence of aspiration during this exam. There was trace residue on the tongue base and on the posterior pharyngeal wall with liquids, complete clearance with semi-solids and solids. Partial distention and partial duration through the pharyngoesophageal segment opening. The following compensatory strategies have not been used until today's study, but when employed, improved swallowing function: [place]-thick Liquid eliminated Penetration Bolus Volume Change eliminated Penetration Bolus Volume Change decreased Pharyngeal Residue Rate of Ingestion Change eliminated Penetration Rate of Ingestion Change decreased Pharyngeal Residue Additional Swallow(s) per Bolus decreased Oral Residue, Pharyngeal Residue Throat Clear eliminated Penetration Liquid Intake Recommendation: Thin Liquid Intake Strategies: Small Sips, No Straws, Double Swallow Dietary Recommendations: Regular Medication Administration: Whole with Puree Please contact the pharmacy regarding appropriate crushable or liquid drug formulations that are available whenever modified delivery is recommended. Compensatory Strategies Recommended: Sitting Upright (90 deg), Throat Clear, Double Swallow, No Straw, Liquids from Cup, Liquids from Spoon, Small Bites and Sips, Alternate Liquids/Solids, Rate of Ingestion Change, Avoid Specific Foods Recommended Treatments: Compens. Strategy Educat. Recommendation for Speech Therapy: Outpatient Speech Therapy Text Comment: Intake Recommendations: Route: PO Diet Grade: Regular Liquid Consistencies: Thin Post-Study Functional Oral Intake Scale (FOIS): 6- Total oral intake with no special preparation, but must avoid specific foods or liquid items Patient presents with mild to moderate oropharyngeal dysphagia. Slowed and disorganized oral phase characterized by prolonged mastication, delayed AP transport, tongue pumping, and premature posterior spillage to the valleculae and pyriform sinuses. Patient swallowed multiple times in order to clear the oral cavity. Pharyngeal swallow trigger was significantly delayed as well. Incomplete laryngeal elevation with partial epiglottic inversion and incomplete laryngeal vestibular closure. There was an episode of deep penetration on trial of thin liquid, with contrast clearing from the airway with a cued throat clear. No evidence of aspiration during this exam. Trace pharyngeal residue on thin liquid and complete clearance with solids Recommend 1-2 follow-up visits with speech pathologist for training of compensatory strategies and to provide further education to the patient and family/caregivers in regards to MBSS results and recommendations. Patient is recommended to continue on a Regular texture diet and Thin Liquids with the following precautions: -Take small bites of food -Chew food well -Follow each bite with multiple dry swallows to promote oral and pharyngeal clearance -Ensure oral cavity is cleared of residue before taking more bites -Alternate bite with sip of liquid -Take INDIVIDUAL sips via teaspoon or cup sips -AVOID the use of straws -Do not take sequential sips -Throat clear followed by dry swallowing between sips -Avoid overly hard or tough to chew solid, mixed consistencies (i.e. foods with liquid and solid components such as soup with thin broth and solid ingredients) -Maintain upright position at 90 degrees during PO intake and for at least 30 minutes afterwards Therapy Recommendations: Therapy will be initiated (1-2 f/u) Prognosis for Improvement: The prognosis for the patient to meet nutritional needs by mouth is fair based on degree of impairment, stimulability for treatment, level of motivation, support system. Laboratory Animal Facility Supervisor Goals: ? The patient and/or family will participate in further education for swallowing goals. Short Term Goals: ? Guidelines - The patient will comply with/recall the following guidelines/strategies 100% of the time with minimal cuing: Bolus Volume Change, Rate of Ingestion Change, Additional Swallow(s) per Bolus, Throat Clear, No Straws. ? Education - The patient, family, caregiver will verbalize/demonstrate understanding of the results of this evaluation, the above recommendations, and the swallowing guidelines. Frequency/Duration: 1-2 f/u Date Range for Service Requested: Timeline to reassess: PRN Clinician - Supplemental, Miscellaneous Communication: Clinician - Supplemental, Miscellaneous Communication: It is important to note MBSS objective studies are snapshots in time and Patient function might vary with factors such as time of day or concomitant medical conditions. For this reason, the final treatment plan for this patient should rest with their medical care team. Additional recommendations should be considered with the totality of the Patient in mind. Thank for the opportunity to participate in the care of this patient. If you have any questions about the content of this report, please contact the [facility] at [facility]. Education: Education regarding findings from today's study and plans for therapy were provided to Patient and family/caregiver through Verbal Instruction. Understanding was expressed by the Patient and family/caregiver. Athletic Trainer Clinician/Clinical Fellow: No Supervisory Statement: N/A Speech Language Pathologist: Leilani Suarez M.A., CCC-HOSPICE COORDINATOR
== END 2024-05-18 14:33 | disposition home or self-care (01) ==
LOC: HO.XRAY 14:32
PROVIDERS: PCP Internal Medicine; Visit Provider Internal Medicine Gastroenterology
DX: R13.10 Dysphagia, unspecified (principal)
CPT/HCPCS: 74230; 92611

== ENCOUNTER 2024-05-19 14:42 | Outpatient (AMB) | payer MEDICARE, MEDICAID, SELFPAY ==
--- NOTE | 2024-05-19 14:45 | A.OFFVIS_ITS ---
Vital Signs 05/19/24 14:48 Height 5 ft 5 in Weight 176 lb 5.917 oz BMI 29.3 BP 110/74 Blood Pressure Location Rt brachial Position Sitting Pulse 87 Intake Visit Reasons: DM-CONF Intake Note: Patient presents today to re-establish treatment for Type 2 Diabetes Mellitus: Last Diabetic eye exam was on: 04/2024 Last Podiatry exam was on: Does not see a Licensed Marriage And Family Therapist Most recent HbA1c: 9.0%, 03/30/2024 Random Glucose- 388 mg/dL, Today Drill Runner Required: No Accompanied by: Self / Same As Patient Allergies dulaglutide [From Trulicity] Allergy (Intermediate, Verified 05/19/24 14:57) pruritus, swelling latex [LATEX] Allergy (Intermediate, Verified 05/19/24 14:57) Hives erythromycin base [ERYTHROMYCIN BASE] Allergy (Unknown, Verified 05/19/24 14:57) UNKNOWN Penicillins [PENICILLINS] Allergy (Unknown, Verified 05/19/24 14:57) UNKNOWN metformin Adverse Reaction (Intermediate, Uncoded 05/19/24 14:57) abdominal discomfort HPI Comments Details: This is a 54-year-old female with diabetes mellitus type 2 presenting for consult. Accompanied by sister who provides most of the history Med history: CVA, hypertension, hyperlipidemia, seizures Current medications: None. She was using Trulicity for few months and has noticed that there is some local swelling and itchiness when she has the injection. Metformin cause abdominal side effects when use. PCP tried to get ozempic and mounjaro approved but insurance is requiring trial of bydureon-which needs a PA. A1C 03/30-9.0%. She has a traditional glucometer. She is afraid of needles and does not check her blood glucose frequently ROS CONSTITUTIONAL: Denies weight loss, fever and chills. HEENT: Denies changes in vision and hearing. RESPIRATORY: Denies SOB and cough. CV: Denies palpitations and CP GI: Denies abdominal pain, nausea, vomiting and diarrhea. : Denies dysuria and urinary frequency. MSK: Denies new myalgia and joint pain. SKIN: Denies rash and pruritus. NEUROLOGICAL: Denies headache PSYCHIATRIC: Denies recent changes in mood. PHYSICAL EXAM: GENERAL: Alert and oriented x 3. NAD EYES: EOMI. Anicteric. HENT: Moist mucous membranes. No scleral icterus. No cervical lymphadenopathy. LUNGS: Clear to auscultation bilaterally. CARDIOVASCULAR: RRR. ABDOMEN: Soft, non-tender +bs EXTREMITIES: No edema. Non-tender. SKIN: No rashes or lesions. Warm. NEUROLOGIC: Antalgic gait. PSYCHIATRIC: Cooperative. Appropriate mood and affect [facility] Medical History Mild aphasia CVA (cerebral vascular accident) Diabetes Seizures Elevated cholesterol Hypertension Ecchymosis Encounter to establish care Hx of cyst of breast Surgical History Hx of colonoscopy History of partial hysterectomy History of thyroid surgery Family History Mother Bone cancer Hypertension Diabetes Father Diabetes Hypertension Maternal Aunt Breast cancer, Onset Age: 49 Family/Other Mental health disorder Social History Housing: Apartment Alcohol intake: never Patient Tobacco Use Status: Never used Tobacco e-Cigarette/Vaping Use: Never Used Second Hand Smoke Exposure: No service: No Current occupational status: unemployed Cognitive needs: Yes (cane ) Hearing needs: No Vision needs: Yes (glasses) Female Reproductive History Menstrual Age of Menarche: 12 Physical Exam Vital Signs: Last Vital Signs Pulse 87 05/19/24 14:48 BP 110/74 05/19/24 14:48 BMI result Body Mass Index 29.3 Assessment & Plan Assessment & Plan (1) Diabetes mellitus: Code(s): E11.9 - Type 2 diabetes mellitus without complications Category: Medical Qualifiers: Diabetes mellitus type: type 2 Diabetes mellitus residential insulin use: without quilt stuffer use Diabetes mellitus complication status: with hyperglycemia Qualified Code(s): E11.65 - Type 2 diabetes mellitus with hyperglycemia Plan: Uncontrolled, currently not on medications Intolerant to metformin, trulicity will start actos, bydureon. Wait 1-2 weeks before starting bydureon (2) Hemiparesis: Comment: Right-sided after CVA 11/2014 Code(s): G81.90 - Hemiplegia, unspecified affecting unspecified side Category: Medical Qualifiers: Hemiparesis etiology: late effect of cerebrovascular disease Cerebrovascular disease type: unspecified Hemiparesis laterality: unspecified Qualified Code(s): I69.959 - Hemiplegia and hemiparesis following unspecified cerebrovascular disease affecting unspecified side Plan: stable (3) Microalbuminuria due to type 2 diabetes mellitus: Code(s): E11.29 - Type 2 diabetes mellitus with other diabetic kidney complication; R80.9 - Proteinuria, unspecified Category: Medical Plan: stable. Improve glycemic control Medications: New pioglitazone 15 mg PO DAILY 90 tabs 3RF Refilled exenatide microspheres ER (Bydureon BCise) 2 mg (0.85 mL) subcut Q7D 4 weeks 3.4 mL 2RF Coding Level of Care Code Est Pt Level 4 (80919) Diagnoses Type 2 diabetes mellitus with hyperglycemia, without long-term current use of insulin E11.65 Diabetes mellitus type: type 2 Diabetes mellitus quilt stuffer insulin use: without residential use Diabetes mellitus complication status: with hyperglycemia Hemiparesis as late effect of cerebrovascular disease, unspecified cerebrovascular disease type, unspecified laterality I69.959 Hemiparesis etiology: late effect of cerebrovascular disease Cerebrovascular disease type: unspecified Hemiparesis laterality: unspecified Microalbuminuria due to type 2 diabetes mellitus E11.29; R80.9
[2024-05-19 14:48] VITALS: BP 110/74; PULSE 87; BMI 29.3
[2024-05-19 15:01] LABS: Glucose, Whole Blood 388 mg/dL (60-115)
== END 2024-05-19 15:16 | disposition home or self-care (01) ==
LOC: HO.ENCR 14:43
PROVIDERS: PCP Internal Medicine; Visit Provider Internal Medicine
DX: E11.65 Type 2 diabetes mellitus with hyperglycemia (principal); I69.959 Hemiplegia and hemiparesis following unspecified cerebrovascular disease affecting unspecified side; E11.29 Type 2 diabetes mellitus with other diabetic kidney complication; R80.9 Proteinuria, unspecified

== ENCOUNTER → 2024-05-19 14:42 | Outpatient (BNVA) | payer MEDICARE, MEDICAID, SELFPAY | PROVIDERS: PCP Internal Medicine; Visit Provider Internal Medicine | DX: E11.65 Type 2 diabetes mellitus with hyperglycemia (principal); E11.29 Type 2 diabetes mellitus with other diabetic kidney complication; R80.9 Proteinuria, unspecified; I69.351 Hemiplegia and hemiparesis following cerebral infarction affecting right dominant side; Z79.85 Long-term (current) use of injectable non-insulin antidiabetic drugs; Z79.84 Long term (current) use of oral hypoglycemic drugs | CPT/HCPCS: 82947; 99212 ==

== ENCOUNTER 2024-05-30 16:30 | Emergency (ER) | payer MEDICARE, MEDICAID, SELFPAY ==
--- NOTE | 2024-05-30 | ECG_ITS ---
Test Reason : cp Blood Pressure : / mmHG Vent. Rate : 088 BPM Atrial Rate : 088 BPM P-R Int : 146 ms QRS Dur : 064 ms QT Int : 352 ms P-R-T Axes : 066 031 042 degrees QTc Int : 425 ms Normal sinus rhythm Normal ECG When compared with ECG of 27-SEP-2023 18:02, No significant change was found Referred By: Generic ED Physician Electronically Signed By:Qasim Garland
--- NOTE | ~2024-05-30 | XR_ITS ---
EXAMINATION: XR chest 2V CLINICAL INFORMATION: chest pain COMPARISON: Chest radiograph 12/31/2022 TECHNIQUE: 2 views of the chest FINDINGS: Clear lungs. No pneumothorax. No pleural effusion. Normal cardiomediastinal silhouette. XR/XR chest 2V IMPRESSION: No acute cardiopulmonary findings. Electronically signed by: Nataliia Paredes MD 05/30/2024 06:26 PM [facility]
[2024-05-30 16:50] VITALS: BP 128/70; PULSE 85; RESP 16; TEMP 36.1; O2SAT 98; BMI 28.3
--- NOTE | 2024-05-30 16:53 | ED_ITS ---
HPI - Chest Pain General Chief Complaint: Chest Pain Stated Complaint: Chest Pain Time Seen by Provider: 05/31/24 00:31 Source: patient and family Mode of arrival: ambulatory Limitations: other (expressive aphasia) History of Present Illness ED Provider: NATY CLEVELAND narrative: 54 yo female with PMH of stroke affecting R side and expressive aphasia on baby aspirin, dysphagia, HLD, DM, seizures, who has had on and off central chest pain worked up by GI in past and everything was normal now again c/o chest wall pain but no associated n/v fevers, cough or dyspnea. It is hard to get a history from her but family helps out. They deny hx of CAD or VTE. MD complaint: chest pain Onset (ago): week(s) (3) Timing of current episode: episodic Prior episodes: Yes Onset: during rest Pain location: substernal Pain radiation: none Severity: moderate Quality: other ( pain ) Relieving factors: nothing Exacerbating factors: palpation and movement Treatment prior to arrival: none Related Data Home Medications ?Medication ?Instructions ?Recorded ?Confirmed aspirin 325 mg tablet,delayed 325 mg PO DAILY 11/27/21 04/07/24 release (Aspir-Isri) multivitamin (One-A-Day Essential 1 tab PO DAILY 11/27/21 04/07/24 tablet) Previous Rx's ?Medication ?Instructions ?Recorded blood-glucose meter (Accu-Chek #1 ea 01/23/22 Cindy Plus Meter) lamotrigine 150 mg tablet 150 mg PO BID 90 days #180 tabs 09/03/22 levetiracetam 1,000 mg tablet 1,000 mg PO BID #180 tabs 10/06/22 flash glucose scanning reader #1 ea 05/06/23 (FreeStyle Jolene 2 [place]) flash glucose sensor (FreeStyle #1 ea 05/06/23 Jolene 2 Sensor kit) lisinopril 2.5 mg tablet 2.5 mg PO DAILY 90 days #90 tabs 03/14/24 atorvastatin 40 mg tablet 40 mg PO BEDTIME 90 days #90 tabs 03/30/24 blood sugar diagnostic (FreeStyle #50 ea 03/30/24 Lite Strips) blood-glucose meter (FreeStyle #1 ea 03/30/24 Lite Meter kit) lancets 28 gauge (FreeStyle #100 ea 03/30/24 Lancets) tirzepatide 2.5 mg/0.5 mL 2.5 mg (0.5 mL) subcut QWEEK 4 04/06/24 subcutaneous pen injector weeks #2 mL (Liz) pantoprazole 40 mg tablet,delayed 40 mg PO DAILY #90 tabs 04/18/24 release exenatide microspheres 2 mg/0.85 2 mg (0.85 mL) subcut Q7D 4 weeks 05/19/24 mL subcutaneous auto-injector #3.4 mL (Edouard Garcia) pioglitazone 15 mg tablet 15 mg PO DAILY #90 tabs 05/19/24 lidocaine 5 % topical patch 1 patch topical DAILY #30 ea 05/31/24 Allergies Allergy/AdvReac Type Severity Reaction Status Date / Time dulaglutide [From Trulicity] Allergy Intermediate pruritus, Verified 05/30/24 16:52 swelling latex [LATEX] Allergy Intermediate Hives Verified 05/30/24 16:52 erythromycin base Allergy Unknown UNKNOWN Verified 05/30/24 16:52 [ERYTHROMYCIN BASE] Penicillins [PENICILLINS] Allergy Unknown UNKNOWN Verified 05/30/24 16:52 metformin AdvReac Intermediate abdominal Uncoded 05/30/24 16:52 discomfort Review of Systems 2 Review of Systems: Constitutional : No Weight loss, No Fever, No Chills ENT/Mouth : No sore throat, No Rhinorrhea Eyes: No Eye Pain, No Swelling Cardiovascular : pos Chest Pain, no SOB, no Dyspnea on Exertion, No Orthopnea, No Edema, No Palpitations Respiratory : No Cough, No Sputum Gastrointestinal : no Nausea, No Vomiting, No Diarrhea, No abdominal Pain, No Hematochezia, No Melena Genitourinary : No Dysuria, No Urinary Frequency Musculoskeletal : No joint pain, No Myalgias, No Joint Swelling Skin : No Skin Lesions, No rash Neuro : No Weakness, No Numbness, No Dizziness, No Headache Psych : No Anxiety/Panic, No Depression All other systems reviewed and are negative [facility] Past Medical History Attestation statement: The following information was validated with the patient. Source: old records reviewed Medical History Mild aphasia CVA (cerebral vascular accident) Diabetes Seizures Elevated cholesterol Hypertension Ecchymosis Encounter to establish care Hx of cyst of breast Surgical History Hx of colonoscopy History of partial hysterectomy History of thyroid surgery Family History Family History Mother Bone cancer Hypertension Diabetes Father Diabetes Hypertension Maternal Aunt Breast cancer, Onset Age: 49 Family/Other Mental health disorder Social History Social History Housing: Apartment Alcohol intake: never Patient Tobacco Use Status: Never used Tobacco e-Cigarette/Vaping Use: Never Used Second Hand Smoke Exposure: No Advance Directives: No Advance Directives Information Provided: No service: No Current occupational status: unemployed Cognitive needs: Yes (cane ) Hearing needs: No Vision needs: Yes (glasses) Physical Exam 2 Vital Signs: Vital Signs: Last Vital Signs Temp 97.6 F 05/31/24 00:54 Pulse 82 05/31/24 00:54 Resp 16 05/31/24 00:54 BP 108/67 05/31/24 00:54 Pulse Ox 97 05/31/24 00:54 O2 Del Method Room Air 05/31/24 00:54 BMI result Body Mass Index 28.3 Course Course Course Narrative: RME performed by Pooja Davis PA-C. Patient is a 54 year old assigned female at presenting to the emergency department with epigastric pain. Patient states over the last 3 weeks she has had epigastric pain and chest burning. Detailed physical exam and review of systems are deferred to the vehicle sales professional. EKG, labs, imaging, and swabs ordered. Patient placed back in the waiting room pending room availability and results. Medical Decision Making Medical Decision Making [facility] Narrative: 54 yo female with PMH of stroke affecting R side and expressive aphasia on baby aspirin, dysphagia, HLD, DM, seizures here with c/o chest pain but hard to distinguis has been seen by GI work up negative on prilosec she reports it hurts to touch the chest given the duration - troponin x 1, ddimer, CXR start on tylenol and lidocaine patch suspect possible costochondritis. Differential Diagnosis Differential Diagnoses: The differential diagnosis associated with the presentation includes costochondritis, atypical chest pain, VTE Admission/Observation Consideration of admission/observation: Escalation of care including admission/observation considered negative workup at this time stable for DC Lab Data [facility] Lab Attestation statement: I reviewed the patient's lab results. 05/30/24 17:24 05/30/24 17:24 Labs: Lab Results 05/30/24 05/31/24 Range/Units 17:24 00:59 WBC 7.8 (4.8-10.8) X10*3/uL RBC 4.43 (4.20-5.50) X10*6/uL Hgb 13.0 (12.0-16.0) g/dl Hct 37.7 (37.0-47.0) % MCV 85.1 (80.0-98.0) fL MCH 29.3 (27.0-33.0) pg MCHC 34.5 (31.0-35.0) g/dl RDW 12.1 (11.0-16.0) % Plt Count 335 (160-400) X10*3/uL MPV 9.2 L (9.4-12.3) fL Immature Gran % (Auto) 0.1 (0.0-0.4) % Neut % (Auto) 53.3 (45-73) % Lymph % (Auto) 38.6 (20-40) % [place] % (Auto) 5.3 (2-11) % Eos % (Auto) 2.2 (0-4) % Baso % (Auto) 0.5 (0-2) % Lymph # (Auto) 3.0 (1.2-4.9) X10*3/uL [place] # (Auto) 0.4 (0.1-1.2) X10*3/uL Eos # (Auto) 0.2 (0.0-0.4) X10*3/uL Baso # (Auto) 0.0 (0.0-0.2) X10*3/uL Abs Immat Gran (auto) 0.01 (0.00-0.03) X10*3/uL Absolute Neuts (auto) 4.1 (2.0-8.3) x10*3/uL Absolute Nucleated RBC 0.000 (0.0-0.012) X10*3/uL Nucleated RBC % (auto) 0.0 (0.0-0.2) /100WBC D-Dimer High Sensitivty < 150 NG/ML Sodium 137 (135-145) mmol/L Potassium 4.1 (3.3-5.1) mmol/L Chloride 102 (96-108) mmol/L Carbon Dioxide 25 (22-29) mmol/L Anion Gap 14 (12-20) BUN 21 H (9-16) mg/dL Creatinine 1.20 (0.5-1.4) mg/dL Estim Creat Clear Calc 58.3 Estimated GFR 47 Random Glucose 346 H (60-115) mg/dL Calcium 10.0 (8.4-10.2) mg/dL Magnesium 1.7 (1.6-2.6) mg/dL Total Bilirubin 0.2 (0.0-1.0) mg/dL AST 15 (5-31) U/L ALT 41 H (0-31) U/L Alkaline Phosphatase 167 H (39-117) U/L Troponin I High Sens < 2.7 (<3.5-17.0) ng/L Total Protein 7.7 (6.5-8.0) g/dL Albumin 4.3 (3.5-5.0) g/dL Lipase 27 (8-78) U/L Influenza Type A (PCR) NEGATIVE (Negative) Influenza Type B (PCR) NEGATIVE (Negative) RSV RNA Qual (PCR) NEGATIVE (Negative) SARS-CoV-2 RNA (RT-PCR) NEGATIVE (Negative) Independent Interpretation I performed an independent interpretation of an: EKG and Plain X-Ray (normal ) Interpretation: Rate: 88 Rhythm: NSR [place]: normal Normal P waves. Normal [place]. Normal QRS complex. ST T wave : normal no [place] qTC: 425 prior studies: no acute ischemia The study has been interpreted contemporaneously by me. . Radiology Impression Discussion of test interpretation with radiology: I have reviewed the radiologist's reading. Independent Historian Clinical information obtained from an independent historian. History obtained from or confirmed by: Other (family) External Record Review External record reviewed: Outpatient record Discharge Plan Discharge Clinical Impression: Acute costochondritis Patient Disposition: Home, Self-Care Instructions: Costochondritis (ED) Additional Instructions: EKG is normal labs reassuring - negative test of troponin, negative blood clot test chest xray is normal please follow up with her doctor for further testing and return for any worsening symptoms or concerns Prescriptions: New lidocaine 5 % adhesive patch,medicated 1 patch topical DAILY Qty: 30 0RF Rx Instructions: leave on most painful area for up to 12 hrs No Action lamotrigine 150 mg tablet 150 mg PO BID 90 Days Qty: 180 1RF levetiracetam 1,000 mg tablet 1,000 mg PO BID Qty: 180 0RF lisinopril 2.5 mg tablet 2.5 mg PO DAILY 90 Days Qty: 90 1RF Mounjaro 2.5 mg/0.5 mL pen injector 2.5 mg subcut QWEEK 28 Days Qty: 2 0RF Rx Instructions: for 4 weeks (DME) FreeStyle Jolene 2 [place] [facility] See Rx Instructions .MEDSUPPLY Qty: 1 0RF Rx Instructions: As directed (DME) FreeStyle Jolene 2 Sensor Kit See Rx Instructions .MEDSUPPLY Qty: 1 3RF Rx Instructions: As directed aspirin [Aspir-Siri] 325 mg tablet,delayed release (DR/EC) 325 mg PO DAILY Rx Instructions: Every other day multivitamin [One-A-Day Essential] Tablet 1 tab PO DAILY (DME) blood-glucose meter [Accu-Chek Cindy Plus Meter] [facility] See Rx Instructions .Route Qty: 1 0RF Rx Instructions: As directed atorvastatin 40 mg tablet 40 mg PO BEDTIME 90 Days Qty: 90 0RF (DME) blood-glucose meter [FreeStyle Lite Meter] Kit See Rx Instructions .Route Qty: 1 0RF Rx Instructions: As directed checks 1 X/day (DME) FreeStyle Lite Strips Strip See Rx Instructions .Route Qty: 50 5RF Rx Instructions: As directed checks 1 X/day (DME) lancets [FreeStyle Lancets] [facility] See [facility]ructions .Route Qty: 100 4RF Rx Instructions: As directed checks 1 X/day pantoprazole 40 mg tablet,delayed release (DR/EC) 40 mg PO DAILY Qty: 90 2RF pioglitazone 15 mg tablet 15 mg PO DAILY Qty: 90 3RF Bydureon BCise 2 mg/0.85 mL auto-injector 2 mg subcut Q7D 28 Days Qty: 3.4 2RF Print Language: Ukrainian
[2024-05-30 17:29] LABS: MANUAL DIFF FLAG NO
[2024-05-30 17:32] LABS: Basophils Percent Auto 0.5 % (0-2); Eosinophils Absolute Auto 0.2 X10*3/uL (0.0-0.4); Eosinophils Percent Auto 2.2 % (0-4); Hematocrit 37.7 % (37.0-47.0); Imm Gran Abs Auto 0.01 X10*3/uL (0.00-0.03); Imm Gran Pct Auto 0.1 % (0.0-0.4); Lymphocytes Percent Auto 38.6 % (20-40); Mean Corpuscular HGB Conc 34.5 g/dl (31.0-35.0); Mean Corpuscular Hemoglobin 29.3 pg (27.0-33.0); Mean Corpuscular Volume 85.1 fL (80.0-98.0); Mean Platelet Volume 9.2 fL (9.4-12.3); Monocytes Absolute Auto 0.4 X10*3/uL (0.1-1.2); Monocytes Percent Auto 5.3 % (2-11); Neutrophils Absolute Auto 4.1 x10*3/uL (2.0-8.3); Neutrophils Percent Auto 53.3 % (45-73); Platelet Count 335 X10*3/uL (160-400); Red Blood Count 4.43 X10*6/uL (4.20-5.50); Red Cell Distribution Width 12.1 % (11.0-16.0); White Blood Count 7.8 X10*3/uL (4.8-10.8)
[2024-05-30 17:47] LABS: Alanine Aminotransferase 41 U/L (0-31); Albumin Level 4.3 g/dL (3.5-5.0); Alkaline Phosphatase 167 U/L (39-117); Anion Gap 14 (12-20); Aspartate Amino Transferase 15 U/L (5-31); Bilirubin Total 0.2 mg/dL (0.0-1.0); Blood Urea Nitrogen 21 mg/dL (9-16); Carbon Dioxide 25 mmol/L (22-29); Chloride 102 mmol/L (96-108); Creatinine Clr Calc Pharmacy 58.3; Estimated Glomerular Filt Rate 47; Glucose Random 346 mg/dL (60-115); Lipase 27 U/L (8-78); Magnesium 1.7 mg/dL (1.6-2.6); Potassium 4.1 mmol/L (3.3-5.1); Sodium 137 mmol/L (135-145); Total Protein 7.7 g/dL (6.5-8.0)
[2024-05-30 18:07] LABS: Troponin-I High Sensitivity < 2.7 ng/L (<3.5-17.0)
[2024-05-30 18:09] LABS: Influenza A PCR NEGATIVE (Negative); Influenza B PCR NEGATIVE (Negative); Resp Syncy Virus RNA Qual PCR NEGATIVE (Negative); SARS COV2 PCR INHOUSE NEGATIVE (Negative)
[2024-05-31 00:54] VITALS: BP 108/67; PULSE 82; RESP 16; TEMP 36.4; O2SAT 97
--- NOTE | 2024-05-31 00:59 | MHC.EDTECH ---
This pct just assumed care of Patient ,vitals taken ,Patient d dimer drawn and sent to lab ,Patient call malone within Pt reach .
[2024-05-31 01:15] LABS: D Dimer High Sensitivity < 150 NG/ML
[2024-05-31 01:43] VITALS: BP 113/75; PULSE 69; RESP 16; TEMP 36.4; O2SAT 97
[2024-05-31 04:34] VITALS: BP 113/75; PULSE 69; RESP 16; TEMP 36.4; O2SAT 97
== END 2024-05-31 02:14 | disposition home or self-care (01) ==
PROVIDERS: Physician Assistant Medical; Emergency Provider Emergency Medicine; PCP Internal Medicine
DX: M94.0 Chondrocostal junction syndrome [Tietze] (principal); R07.89 Other chest pain; Z03.818 Encounter for observation for suspected exposure to other biological agents ruled out; Z79.899 Other long term (current) drug therapy
CPT/HCPCS: 0241U; 36415; 71046; 80053; 83690; 83735; 84484; 85025; 85379; 93005; 99283; 99284

== ENCOUNTER → 2024-05-30 16:35 | Outpatient (BNV) | payer MEDICARE, MEDICAID, SELFPAY | PROVIDERS: Emergency Provider Emergency Medicine; PCP Internal Medicine; Visit Provider Internal Medicine Cardiovascular Disease | DX: R07.9 Chest pain, unspecified (principal) | CPT/HCPCS: 93010 ==

== ENCOUNTER 2024-06-22 14:56 | Outpatient (AMB) | payer MEDICARE, MEDICAID, SELFPAY ==
[2024-06-22 14:57] VITALS: BP 102/62; PULSE 88; BMI 28.9
--- NOTE | 2024-06-22 14:57 | MHC.OFFVIS ---
Vital Signs 06/22/24 14:57 Height 5 ft 6 in Weight 179 lb 0.246 oz BMI 28.9 BP 102/62 Blood Pressure Location Lt brachial Position Sitting Pulse 88 Pulse Source Pulse Oximeter Intake Visit Reasons: DM/ Left vm Intake Note: Patient present today to follow up on Type 2 Diabetes Mellitus. Last Diabetic Eye exam: 05/12/2024, [facility] Last Podiatry Visit: Does not see a Moderate Needs Teacher Random Glucose: 311 mg/dl HgA1C: 9.0% 03/30/24 Showroom Sales Consultant Required: No Accompanied by: Sister Allergies dulaglutide [From Trulicity] Allergy (Intermediate, Verified 06/22/24 15:01) pruritus, swelling latex [LATEX] Allergy (Intermediate, Verified 06/22/24 15:01) Hives erythromycin base [ERYTHROMYCIN BASE] Allergy (Unknown, Verified 06/22/24 15:01) UNKNOWN Penicillins [PENICILLINS] Allergy (Unknown, Verified 06/22/24 15:01) UNKNOWN metformin Adverse Reaction (Intermediate, Uncoded 06/22/24 15:01) abdominal discomfort HPI Comments Details: This is a 54-year-old female with diabetes mellitus type 2 presenting for consult. Accompanied by sister who provides most of the history Med history: CVA, hypertension, hyperlipidemia, seizures Current medications:Started actos 15mg daily at last visit. She is tolerated the medication well. She plans to try bydureon now. None. She was using Trulicity for few months and has noticed that there is some local swelling and itchiness when she has the injection. Metformin cause abdominal side effects when use. PCP tried to get ozempic and criss approved but insurance required bydureon trial first. A1C 03/30-9.0%. She has a traditional glucometer. Reports readings generally in 200s down from 300s. ROS CONSTITUTIONAL: Denies weight loss, fever and chills. HEENT: Denies changes in vision and hearing. RESPIRATORY: Denies SOB and cough. CV: Denies palpitations and CP GI: Denies abdominal pain, nausea, vomiting and diarrhea. : Denies dysuria and urinary frequency. MSK: Denies new myalgia and joint pain. SKIN: Denies rash and pruritus. NEUROLOGICAL: Denies headache PSYCHIATRIC: Denies recent changes in mood. PHYSICAL EXAM: GENERAL: Alert and oriented x 3. NAD EYES: EOMI. Anicteric. HENT: Moist mucous membranes. No scleral icterus. No cervical lymphadenopathy. LUNGS: Clear to auscultation bilaterally. CARDIOVASCULAR: RRR. ABDOMEN: Soft, non-tender +bs EXTREMITIES: No edema. Non-tender. SKIN: No rashes or lesions. Warm. NEUROLOGIC: Antalgic gait. PSYCHIATRIC: Cooperative. Appropriate mood and affect [facility] Medical History Mild aphasia CVA (cerebral vascular accident) Diabetes Seizures Elevated cholesterol Hypertension Ecchymosis Encounter to establish care Hx of cyst of breast Surgical History Hx of colonoscopy History of partial hysterectomy History of thyroid surgery Family History Mother Bone cancer Hypertension Diabetes Father Diabetes Hypertension Maternal Aunt Breast cancer, Onset Age: 49 Family/Other Mental health disorder Social History Housing: Apartment Alcohol intake: never Patient Tobacco Use Status: Never used Tobacco e-Cigarette/Vaping Use: Never Used Second Hand Smoke Exposure: No service: No Current occupational status: unemployed Cognitive needs: Yes (cane ) Hearing needs: No Vision needs: Yes (glasses) Female Reproductive History Menstrual Age of Menarche: 12 Physical Exam Vital Signs: Last Vital Signs Pulse 88 06/22/24 14:57 BP 102/62 06/22/24 14:57 BMI result Body Mass Index 28.9 Results Reviewed Results Reviewed: Laboratory Last Values Glucose (Clinic) 311 mg/dL (60-115) H 06/22/24 15:07 Assessment & Plan Assessment & Plan (1) Diabetes mellitus: Code(s): E11.9 - Type 2 diabetes mellitus without complications Category: Medical Qualifiers: Diabetes mellitus type: type 2 Diabetes mellitus halfway insulin use: without terminal press operator use Diabetes mellitus complication status: with hyperglycemia Qualified Code(s): E11.65 - Type 2 diabetes mellitus with hyperglycemia Plan: she forgot meter today. She will try bydureon then both and follow up in one month (2) Microalbuminuria due to type 2 diabetes mellitus: Code(s): E11.29 - Type 2 diabetes mellitus with other diabetic kidney complication; R80.9 - Proteinuria, unspecified Category: Medical Plan: see above Coding Level of Care Code Est Pt Level 4 (00067) Diagnoses Type 2 diabetes mellitus with hyperglycemia, without long-term current use of insulin E11.65 Diabetes mellitus type: type 2 Diabetes mellitus halfway insulin use: without terminal press operator use Diabetes mellitus complication status: with hyperglycemia Microalbuminuria due to type 2 diabetes mellitus E11.29; R80.9
[2024-06-22 15:11] LABS: Glucose, Whole Blood 311 mg/dL (60-115)
== END 2024-06-22 15:44 | disposition home or self-care (01) ==
PROVIDERS: PCP Internal Medicine; Visit Provider Internal Medicine
DX: E11.65 Type 2 diabetes mellitus with hyperglycemia (principal); E11.29 Type 2 diabetes mellitus with other diabetic kidney complication; R80.9 Proteinuria, unspecified

== ENCOUNTER → 2024-06-22 14:56 | Outpatient (BNVA) | payer MEDICARE, MEDICAID, SELFPAY | PROVIDERS: PCP Internal Medicine; Visit Provider Internal Medicine | DX: E11.65 Type 2 diabetes mellitus with hyperglycemia (principal); E11.29 Type 2 diabetes mellitus with other diabetic kidney complication; R80.9 Proteinuria, unspecified; Z79.84 Long term (current) use of oral hypoglycemic drugs | CPT/HCPCS: 82947; 99212 ==

== ENCOUNTER 2024-07-11 06:17 | Emergency (ER) | payer MEDICARE, MEDICAID, SELFPAY ==
[2024-07-11] VITALS (7 sets, daily range): BP systolic 106–121; BP diastolic 67–74; PULSE 91–104; RESP 16–18; TEMP 37–37.1; O2SAT 97–99; BMI 28.6
--- NOTE | ~2024-07-11 | XR_ITS ---
EXAMINATION: XR CHEST CLINICAL INFORMATION: cough COMPARISON: X-ray dated May 30, 2024 TECHNIQUE: 2 views of the chest were obtained. FINDINGS: Prominence of the interstitial lung markings in the perihilar regions. No pleural effusion. No pneumothorax. Cardiomediastinal silhouette size is normal. Vascular clips overlapping the left upper quadrant abdomen/left lower chest. S-shaped curvature of the upper thoracic spine. XR/XR chest 2V IMPRESSION: Mild interstitial edema in the correct clinical settings. Superimposed acute inflammatory or infectious process cannot be excluded. Electronically signed by: Jose A Navarro MD 07/11/2024 07:17 AM EST
--- NOTE | 2024-07-11 06:42 | ED_ITS ---
HPI - URI/Sore Throat General Chief Complaint: Upper Respiratory Symptoms Stated Complaint: cough, faintish Time Seen by Provider: 07/11/24 06:36 Source: patient, RN notes reviewed and old records reviewed Mode of arrival: ambulatory History of Present Illness ED Provider: Miley Rosario PA-C HPI Narrative: 54-year-old female with a past medical history of CVA with right-sided residual deficits and aphasia on baby ASA, diabetes, seizures, HLD, HTN, presenting to the ED complaining of feeling generally unwell, subjective fever, and productive cough x 4 days. Also reports ? syncopal vs presyncopal episode this morning where patient fell onto bed witnessed by sister, denies head trauma or witnessed seizure-like activity including body shaking/incontinence. Denies CP/SOB, abdominal pain, nausea/vomiting, headache. History difficult to obtain due to patient's baseline aphasia, sister aiding with history MD elicited complaint: cough Related Data Home Medications ?Medication ?Instructions ?Recorded ?Confirmed aspirin 325 mg tablet,delayed 325 mg PO DAILY 11/27/21 04/07/24 release (Aspir-Siri) multivitamin (One-A-Day Essential 1 tab PO DAILY 11/27/21 04/07/24 tablet) Previous Rx's ?Medication ?Instructions ?Recorded blood-glucose meter (Accu-Chek #1 ea 01/23/22 Cindy Plus Meter) lamotrigine 150 mg tablet 150 mg PO BID 90 days #180 tabs 09/03/22 levetiracetam 1,000 mg tablet 1,000 mg PO BID #180 tabs 10/06/22 flash glucose scanning reader #1 ea 05/06/23 (FreeStyle Jolene 2 [place]) flash glucose sensor (FreeStyle #1 ea 05/06/23 Jolene 2 Sensor kit) lisinopril 2.5 mg tablet 2.5 mg PO DAILY 90 days #90 tabs 03/14/24 blood sugar diagnostic (FreeStyle #50 ea 03/30/24 Lite Strips) blood-glucose meter (FreeStyle #1 ea 03/30/24 Lite Meter kit) lancets 28 gauge (FreeStyle #100 ea 03/30/24 Lancets) tirzepatide 2.5 mg/0.5 mL 2.5 mg (0.5 mL) subcut QWEEK 4 04/06/24 subcutaneous pen injector weeks #2 mL (Liz) pantoprazole 40 mg tablet,delayed 40 mg PO DAILY #90 tabs 04/18/24 release exenatide microspheres 2 mg/0.85 2 mg (0.85 mL) subcut Q7D 4 weeks 05/19/24 mL subcutaneous auto-injector #3.4 mL (Edouard Garcia) pioglitazone 15 mg tablet 15 mg PO DAILY #90 tabs 05/19/24 lidocaine 5 % topical patch 1 patch topical DAILY #30 ea 05/31/24 atorvastatin 40 mg tablet 40 mg PO BEDTIME 90 days #90 tabs 06/22/24 Allergies Allergy/AdvReac Type Severity Reaction Status Date / Time dulaglutide [From Trulicity] Allergy Intermediate pruritus, Verified 07/11/24 06:29 swelling latex [LATEX] Allergy Intermediate Hives Verified 07/11/24 06:29 erythromycin base Allergy Unknown UNKNOWN Verified 07/11/24 06:29 [ERYTHROMYCIN BASE] Penicillins [PENICILLINS] Allergy Unknown UNKNOWN Verified 07/11/24 06:29 metformin AdvReac Intermediate abdominal Uncoded 07/11/24 06:29 discomfort Review of Systems 2 Review of Systems: Yes all other systems are reviewed and are negative Constitutional: Constitutional: Reports as per [facility] Past Medical History Attestation statement: The following information was validated with the patient. Source: old records reviewed Medical History Mild aphasia CVA (cerebral vascular accident) Diabetes Seizures Elevated cholesterol Hypertension Ecchymosis Encounter to establish care Hx of cyst of breast Surgical History Hx of colonoscopy History of partial hysterectomy History of thyroid surgery Family History Family History Mother Bone cancer Hypertension Diabetes Father Diabetes Hypertension Maternal Aunt Breast cancer, Onset Age: 49 Family/Other Mental health disorder Social History Social History Housing: Apartment Alcohol intake: never Patient Tobacco Use Status: Never used Tobacco e-Cigarette/Vaping Use: Never Used Second Hand Smoke Exposure: No service: No Current occupational status: unemployed Cognitive needs: Yes (cane ) Hearing needs: No Vision needs: Yes (glasses) Physical Exam 2 Vital Signs: Vital Signs: Last Vital Signs Temp 98.6 F 07/11/24 09:20 Pulse 91 07/11/24 09:20 Resp 16 07/11/24 09:20 BP 121/68 07/11/24 09:20 Pulse Ox 99 07/11/24 09:20 O2 Del Method Room Air 07/11/24 09:20 BMI result Body Mass Index 28.6 Const: General: cooperative, healthy appearing and no acute distress O rientation/consciousness: patient oriented x3 Limitations: no limitations HEENT: Head: Yes normal to inspection and Yes atraumatic Ears: hearing grossly normal bilaterally General nose exam: Normal external nose present Face and sinus: Yes normal facial exam Mouth: Normal oral and palatal mucosa present and no drooling Throat: Yes posterior oropharynx normal, Yes tonsils normal and Yes uvula midline Eyes: General: appearance normal, both eyes and all related structures P upils: Equal, round and reactive pupils present EOM: EOMs intact bilaterally Neck: Neck: Yes normal visual inspection and Yes no meningeal signs Resp: Effort & Inspection: normal respiratory effort and no respiratory distress Auscultation: clear to auscultation bilaterally, no crackles and no wheezes Cardio: Rate: regular rate Heart sounds: S1 normal heart sound present and S2 normal heart sound present GI: Inspection: Yes normal to inspection Palpation (GI): Soft to palpation, nontender, no guarding and not rigid : General: Yes no CVA tenderness Back/Spine/Pelvis: Back: no CVA tenderness Skin: Rashes: no rashes Wounds: no wounds Neuro: Other: Right-sided residual deficits from prior CVA General: patient oriented x3, tone normal, no meningeal signs and CN's II- XI intact bilaterally Cranial nerves: Yes CN's II-XII intact bilaterally and Yes Equal, round and reactive pupils present Cognition (Neuro): normal cognition Speech: Expressive aphasia present Extrem: General: Yes normal to inspection Course Course Course Narrative: -0857--labs reassuring. UA contaminated will hold on antibiotic initiation until culture results -COVID-19 positive XR chest 2V IMPRESSION: Mild interstitial edema in the correct clinical settings. Superimposed acute inflammatory or infectious process cannot be excluded. > findings likely related to COVID-19 rather than bacterial PNA will avoid antibiotics at this time. No hypoxia. No need to initiate steroids -troponin negative -orthostatic vital signs negative Results discussed with patient including worrisome signs and symptoms and strict return precautions, and when to return to the emergency department. They verbalized understanding and feel safe for discharge at this time. Medications Administered Discontinued Medications Generic Name Dose Route Start Last Admin Trade Name Freq PRN Reason Stop Dose Admin Sodium Chloride 1,000 mls @ 999 mls/hr 07/11/24 07:00 07/11/24 08:18 Ns IV 07/11/24 08:00 Not Given .Q1H1M [facility] Medical Decision Making Medical Decision Making [facility] Narrative: 54-year-old female with a past medical history of CVA with right-sided residual deficits and aphasia on baby ASA, diabetes, seizures, HLD, HTN, presenting to the ED complaining of feeling generally unwell, subjective fever, and productive cough x 4 days. Also reports ? syncopal vs presyncopal episode this morning where patient fell onto bed. On exam mildly tachycardic, NAD, nontoxic appearing, lungs CTA, no focal neuro deficits. Concern for viral illness vs pneumonia vs bronchitis vs syncope/presyncope. Lower suspicion for seizure. Unlikely ICH, meningitis/encephalitis. Lower suspicion for ACS/PE at this time without hypoxia or SOB/CP. Rule out metabolic abnormalities Plan: EKG, labs, UA, CXR, viral studies, IVF, orthostatic Please refer to course for remaining clinical decision making, interpretation of labs/imaging results, and discussions with consultants and/or family members. Differential Diagnosis Differential Diagnoses: The differential diagnosis associated with the presentation includes As above Admission/Observation Consideration of admission/observation: Escalation of care including admission/observation considered Lab Data [facility] Lab Attestation statement: I reviewed the patient's lab results. 07/11/24 08:31 07/11/24 08:31 Labs: Lab Results 07/11/24 07/11/24 Range/Units 06:34 08:31 WBC 7.1 (4.8-10.8) X10*3/uL RBC 4.29 (4.20-5.50) X10*6/uL Hgb 12.8 (12.0-16.0) g/dl Hct 37.0 (37.0-47.0) % MCV 86.2 (80.0-98.0) fL MCH 29.8 (27.0-33.0) pg MCHC 34.6 (31.0-35.0) g/dl RDW 12.6 (11.0-16.0) % Plt Count 274 (160-400) X10*3/uL MPV 8.6 L (9.4-12.3) fL Immature Gran % (Auto) 0.4 (0.0-0.4) % Neut % (Auto) 79.5 H (45-73) % Lymph % (Auto) 10.9 L (20-40) % [place] % (Auto) 8.2 (2-11) % Eos % (Auto) 0.4 (0-4) % Baso % (Auto) 0.6 (0-2) % Lymph # (Auto) 0.8 L (1.2-4.9) X10*3/uL [place] # (Auto) 0.6 (0.1-1.2) X10*3/uL Eos # (Auto) 0.0 (0.0-0.4) X10*3/uL Baso # (Auto) 0.0 (0.0-0.2) X10*3/uL Abs Immat Gran (auto) 0.03 (0.00-0.03) X10*3/uL Absolute Neuts (auto) 5.6 (2.0-8.3) x10*3/uL Absolute Nucleated RBC 0.000 (0.0-0.012) X10*3/uL Nucleated RBC % (auto) 0.0 (0.0-0.2) /100WBC PT 14.1 H (10.9-12.4) SEC INR 1.2 H (0.9-1.1) Sodium 136 (135-145) mmol/L Potassium 4.1 (3.3-5.1) mmol/L Chloride 101 (96-108) mmol/L Carbon Dioxide 27 (22-29) mmol/L Anion Gap 12 (12-20) BUN 8 L (9-16) mg/dL Creatinine 1.06 (0.5-1.4) mg/dL Estim Creat Clear Calc 64.1 Estimated GFR 54 Random Glucose 255 H (60-115) mg/dL Calcium 9.0 D (8.4-10.2) mg/dL Magnesium 1.8 (1.6-2.6) mg/dL Total Bilirubin 0.5 (0.0-1.0) mg/dL AST 21 (5-31) U/L ALT 22 (0-31) U/L Alkaline Phosphatase 152 H (39-117) U/L Troponin I High Sens < 2.7 (<3.5-17.0) ng/L Total Protein 7.3 (6.5-8.0) g/dL Albumin 4.1 (3.5-5.0) g/dL Urine Color Yellow Urine Appearance Clear Urine pH 6.5 (5.0-9.0) Ur Specific [place] 1.020 (1.005-1.025) Urine Protein 30 (1+) H (Neg-Trace) mg/dL Urine Glucose (UA) 500 H (Negative) mg/dL Urine Ketones Trace (Negative) mg/dL Urine Blood Trace H (Negative) Urine Nitrite Negative (Negative) Ur Leukocyte Esterase Negative (Negative) Urine RBC 11-20 H (0-2) /HPF Urine WBC 0-5 (0-5) /HPF Ur Squamous Epith Cells 11-20 (0-2) /HPF Urine Bacteria Trace (None Seen) Hyaline Casts 0-2 (0-2) /LPF Influenza Type A (PCR) NEGATIVE (Negative) Influenza Type B (PCR) NEGATIVE (Negative) RSV RNA Qual (PCR) NEGATIVE (Negative) SARS-CoV-2 RNA (RT-PCR) POSITIVE A (Negative) Radiology Impression Discussion of test interpretation with radiology: I have reviewed the radiologist's reading. External Record Review External record reviewed: Inpatient record, Office record, Outpatient record, Prior outpatient labs, Prior outpatient radiology, Primary care record and Outside ED record Tests considered The following testing was considered but not selected: As above Discharge Plan Discharge Clinical Impression: COVID-19 Patient Disposition: Home, Self-Care Instructions: COVID-19 (Coronavirus Disease 2019) (ED) Additional Instructions: YOU HAVE COVID-19 Your blood work is otherwise reassuring At this time you will be okay for discharge. Please self isolate for 5 days. Do not expose yourself to others. You may not go to work or school. Please continue to follow cold instructions and wash your hands frequently. You may take Tylenol / Motrin as directed on the bottle for pain or fever. If you have constant or persistent shortness of breath, fever unresolved with medications, chest pain, or your unable to eat or drink please return to the ED CDC Guidelines for home isolation: - Stay away from others - WEAR A MASK if you are sick AND STAY HOME - Cover your mouth and nose with a tissue when you cough or sneeze. Dispose of tissues in a lined trash can and wash your hands immediately with soap and water for at least 20 seconds. If soap and water are not available, clean hands with alcohol-based hand teacher emotionally impaired that contains at least 60% alcohol. - Clean your hands often with soap and water for at least 20 seconds - Avoid touching your eyes, nose and mouth with unwashed hands - Do not share dishes, drinking glasses, cups, eating utensils, towels, or bedding with other people in your home. After using these items, wash them thoroughly with soap and water or put in the aluminum sheet cutter. - Clean high-touch surfaces in your isolation area ( sick room and bathroom) every day; let a caregiver clean and disinfect high-touch surfaces in other areas of the home. Clean the area or item with soap and water or another detergent if it is dirty. Then, use a household disinfectant. - Limit contact with pets and animals: If you must care for a pet, wash your hands before and after interacting with them) Prescriptions: No Action lamotrigine 150 mg tablet 150 mg PO BID 90 Days Qty: 180 1RF levetiracetam 1,000 mg tablet 1,000 mg PO BID Qty: 180 0RF lisinopril 2.5 mg tablet 2.5 mg PO DAILY 90 Days Qty: 90 1RF Mounjaro 2.5 mg/0.5 mL pen injector 2.5 mg subcut QWEEK 28 Days Qty: 2 0RF Rx Instructions: for 4 weeks atorvastatin 40 mg tablet 40 mg PO BEDTIME 90 Days Qty: 90 0RF lidocaine 5 % adhesive patch,medicated 1 patch topical DAILY Qty: 30 0RF Rx Instructions: leave on most painful area for up to 12 hrs (DME) FreeStyle Jolene 2 [place] Misc See Rx Instructions .MEDSUPPLY Qty: 1 0RF Rx Instructions: As directed (DME) FreeStyle Jolene 2 Sensor Kit See Rx Instructions .MEDSUPPLY Qty: 1 3RF Rx Instructions: As directed aspirin [Aspir-Siri] 325 mg tablet,delayed release (DR/EC) 325 mg PO DAILY Rx Instructions: Every other day multivitamin [One-A-Day Essential] Tablet 1 tab PO DAILY (DME) blood-glucose meter [Accu-Chek Cindy Plus Meter] Misc See Rx Instructions .Route Qty: 1 0RF Rx Instructions: As directed (DME) blood-glucose meter [FreeStyle Lite Meter] Kit See Rx Instructions .Route Qty: 1 0RF Rx Instructions: As directed checks 1 X/day (DME) FreeStyle Lite Strips Strip See Rx Instructions .Route Qty: 50 5RF Rx Instructions: As directed checks 1 X/day (DME) lancets [FreeStyle Lancets] 28 gauge misc See Rx Instructions .Route Qty: 100 4RF Rx Instructions: As directed checks 1 X/day pantoprazole 40 mg tablet,delayed release (DR/EC) 40 mg PO DAILY Qty: 90 2RF pioglitazone 15 mg tablet 15 mg PO DAILY Qty: 90 3RF Bydureon BCise 2 mg/0.85 mL auto-injector 2 mg subcut Q7D 28 Days Qty: 3.4 2RF Referrals: Stephanie García MD [Primary Care Provider] - 1 week Interventions: ED Discharge Assessment Last Done: 07/11/24 09:20 Discharge Date/Time: 07/11/24 09:22 Print Language: Lithuanian
--- NOTE | 2024-07-11 06:48 | ECG_ITS ---
Test Reason : SYNCOPE Blood Pressure : / mmHG Vent. Rate : 095 BPM Atrial Rate : 095 BPM P-R Int : 150 ms QRS Dur : 070 ms QT Int : 342 ms P-R-T Axes : 055 017 032 degrees QTc Int : 429 ms Normal sinus rhythm Normal ECG When compared with ECG of 30-MAY-2024 16:35, No significant change was found Referred By: Miley Rosario Electronically Signed By:Qasim Garland
[2024-07-11 07:20] LABS: Influenza A PCR NEGATIVE (Negative); Influenza B PCR NEGATIVE (Negative); Resp Syncy Virus RNA Qual PCR NEGATIVE (Negative); SARS COV2 PCR INHOUSE POSITIVE (Negative)
--- NOTE | 2024-07-11 08:18 | PC.NURSE ---
Unable to obtain IV access Miley CHRISTIAN aware, will give PO fluids
[2024-07-11 08:39] LABS: MANUAL DIFF FLAG NO
[2024-07-11 08:42] LABS: Basophils Percent Auto 0.6 % (0-2); Eosinophils Percent Auto 0.4 % (0-4); Hemoglobin 12.8 g/dl (12.0-16.0); Imm Gran Abs Auto 0.03 X10*3/uL (0.00-0.03); Imm Gran Pct Auto 0.4 % (0.0-0.4); Lymphocytes Absolute Auto 0.8 X10*3/uL (1.2-4.9); Lymphocytes Percent Auto 10.9 % (20-40); Mean Corpuscular HGB Conc 34.6 g/dl (31.0-35.0); Mean Corpuscular Hemoglobin 29.8 pg (27.0-33.0); Mean Corpuscular Volume 86.2 fL (80.0-98.0); Mean Platelet Volume 8.6 fL (9.4-12.3); Monocytes Absolute Auto 0.6 X10*3/uL (0.1-1.2); Monocytes Percent Auto 8.2 % (2-11); Neutrophils Absolute Auto 5.6 x10*3/uL (2.0-8.3); Neutrophils Percent Auto 79.5 % (45-73); Platelet Count 274 X10*3/uL (160-400); Red Blood Count 4.29 X10*6/uL (4.20-5.50); Red Cell Distribution Width 12.6 % (11.0-16.0); White Blood Count 7.1 X10*3/uL (4.8-10.8)
[2024-07-11 08:44] LABS: Appearance Urine Clear; Color Urine Yellow; Glucose Urine UA 500 mg/dL (Negative); Leukocyte Esterase Urine Negative (Negative); Nitrite Urine Negative (Negative); PH 6.5 (5.0-9.0); UMIC TRIGGER UACC YES; Urine Blood Trace (Negative); Urine Ketones Trace mg/dL (Negative); Urine Protein 30 (1+) mg/dL (Neg-Trace)
[2024-07-11 08:46] LABS: Bacteria Urine Trace (None Seen); Hyaline Casts Urine 0-2 /LPF (0-2); INTERNATIONAL NORM RATIO 1.2 (0.9-1.1); Prothrombin Time 14.1 SEC (10.9-12.4); WBC Urine 0-5 /HPF (0-5)
[2024-07-11 08:55] LABS: Alanine Aminotransferase 22 U/L (0-31); Albumin Level 4.1 g/dL (3.5-5.0); Alkaline Phosphatase 152 U/L (39-117); Anion Gap 12 (12-20); Aspartate Amino Transferase 21 U/L (5-31); Bilirubin Total 0.5 mg/dL (0.0-1.0); Blood Urea Nitrogen 8 mg/dL (9-16); Carbon Dioxide 27 mmol/L (22-29); Chloride 101 mmol/L (96-108); Creatinine Clr Calc Pharmacy 64.1; Estimated Glomerular Filt Rate 54; Glucose Random 255 mg/dL (60-115); Magnesium 1.8 mg/dL (1.6-2.6); Potassium 4.1 mmol/L (3.3-5.1); Sodium 136 mmol/L (135-145); Total Protein 7.3 g/dL (6.5-8.0)
[2024-07-11 09:01] LABS: Troponin-I High Sensitivity < 2.7 ng/L (<3.5-17.0)
== END 2024-07-11 09:22 | disposition home or self-care (01) ==
PROVIDERS: Physician Assistant; Emergency Provider Emergency Medicine; PCP Internal Medicine
DX: U07.1 COVID-19 (principal); R05.9 Cough, unspecified; R50.9 Fever, unspecified; E11.9 Type 2 diabetes mellitus without complications; I10 Essential (primary) hypertension; E78.5 Hyperlipidemia, unspecified; Z86.73 Personal history of transient ischemic attack (TIA), and cerebral infarction without residual deficits; Z79.02 Long term (current) use of antithrombotics/antiplatelets; Z79.82 Long term (current) use of aspirin; Z79.899 Other long term (current) drug therapy
CPT/HCPCS: 0241U; 36415; 71046; 80053; 81001; 83735; 84484; 85025; 85610; 93005; 99283; 99285

== ENCOUNTER → 2024-07-11 06:48 | Outpatient (BNV) | payer MEDICARE, MEDICAID, SELFPAY | PROVIDERS: Emergency Provider Emergency Medicine; PCP Internal Medicine; Visit Provider Internal Medicine Cardiovascular Disease | DX: R55 Syncope and collapse (principal) | CPT/HCPCS: 93010 ==

== ENCOUNTER → 2024-07-11 06:49 | Outpatient (BNV) | payer MEDICARE, MEDICAID, SELFPAY | PROVIDERS: Emergency Provider Emergency Medicine; PCP Internal Medicine; Visit Provider Radiology Diagnostic Radiology | DX: R05.9 Cough, unspecified (principal) | CPT/HCPCS: 71046 ==

== ENCOUNTER 2024-07-27 14:58 | Outpatient (AMB) | payer MEDICARE, MEDICAID, SELFPAY ==
--- NOTE | 2024-07-27 15:00 | MHC.OFFVIS ---
Vital Signs 07/27/24 15:03 Height 5 ft 5 in Weight 180 lb 12.465 oz BMI 30.1 BP 118/70 Blood Pressure Location Rt brachial Position Sitting Pulse 96 Pulse Source Pulse Oximeter Intake Visit Reasons: DM Intake Note: Patient presents today to re-establish treatment for Type 2 Diabetes Mellitus: Last Diabetic eye exam was on: 04/2024 Last Podiatry exam was on: Does not see a Covered Button Maker Most recent HbA1c: 9.3%, 07/27/2024 Random Glucose- 214 mg/dL, Today Loan Workout Officer Required: No Accompanied by: Mother Allergies dulaglutide [From Trulicity] Allergy (Intermediate, Verified 07/27/24 15:10) pruritus, swelling latex [LATEX] Allergy (Intermediate, Verified 07/27/24 15:10) Hives erythromycin base [ERYTHROMYCIN BASE] Allergy (Unknown, Verified 07/27/24 15:10) UNKNOWN Penicillins [PENICILLINS] Allergy (Unknown, Verified 07/27/24 15:10) UNKNOWN metformin Adverse Reaction (Intermediate, Uncoded 07/27/24 15:10) abdominal discomfort HPI Comments Details: This is a 54-year-old female with diabetes mellitus type 2 presenting for consult. Accompanied by sister who provides most of the history Med history: CVA, hypertension, hyperlipidemia, seizures Current medications: She took four doses of bydureon which is the only injection her insurance would cover. Tolerated it well. Now insurance is covering ozempic so will transition to that. She did not restart the actos and will not until she knows that she tolerates the ozempic. She tolerated the actos well at 15mg daily. She was using Trulicity for few months and has noticed that there is some local swelling and itchiness when she has the injection. Metformin cause abdominal side effects when use. A1C 03/30-9.0% today at 9.3%. She has a traditional glucometer, checking once daily consistently. Avg 185 with range 163-214 ROS CONSTITUTIONAL: Denies weight loss, fever and chills. HEENT: Denies changes in vision and hearing. RESPIRATORY: Denies SOB and cough. CV: Denies palpitations and CP GI: Denies abdominal pain, nausea, vomiting and diarrhea. : Denies dysuria and urinary frequency. MSK: Denies new myalgia and joint pain. SKIN: Denies rash and pruritus. NEUROLOGICAL: Denies headache PSYCHIATRIC: Denies recent changes in mood. PHYSICAL EXAM: GENERAL: Alert and oriented x 3. NAD EYES: EOMI. Anicteric. HENT: Moist mucous membranes. No scleral icterus. No cervical lymphadenopathy. LUNGS: Clear to auscultation bilaterally. CARDIOVASCULAR: RRR. ABDOMEN: Soft, non-tender +bs EXTREMITIES: No edema. Non-tender. SKIN: No rashes or lesions. Warm. NEUROLOGIC: Antalgic gait. PSYCHIATRIC: Cooperative. Appropriate mood and affect [facility] Medical History Mild aphasia CVA (cerebral vascular accident) Diabetes Seizures Elevated cholesterol Hypertension Ecchymosis Encounter to establish care Hx of cyst of breast Surgical History Hx of colonoscopy History of partial hysterectomy History of thyroid surgery Family History Mother Bone cancer Hypertension Diabetes Father Diabetes Hypertension Maternal Aunt Breast cancer, Onset Age: 49 Family/Other Mental health disorder Social History Housing: Apartment Alcohol intake: never Patient Tobacco Use Status: Never used Tobacco e-Cigarette/Vaping Use: Never Used Second Hand Smoke Exposure: No service: No Current occupational status: unemployed Cognitive needs: Yes (cane ) Hearing needs: No Vision needs: Yes (glasses) Female Reproductive History Menstrual Age of Menarche: 12 Physical Exam Vital Signs: Last Vital Signs Pulse 96 07/27/24 15:03 BP 118/70 07/27/24 15:03 BMI result Body Mass Index 30.1 Results AMB Hemoglobin A1c AMB Hemoglobin A1c 9.3 % Last Edit by LA Mena on 07/27/24 15:23 Results Reviewed Results Reviewed: Laboratory Last Values Glucose (Clinic) 214 mg/dL (60-115) H 07/27/24 15:09 Assessment & Plan Assessment & Plan (1) Diabetes mellitus: Code(s): E11.9 - Type 2 diabetes mellitus without complications Category: Medical Qualifiers: Diabetes mellitus type: type 2 Diabetes mellitus long term acute care registered nurse insulin use: without long term acute care registered nurse use Diabetes mellitus complication status: with hyperglycemia Qualified Code(s): E11.65 - Type 2 diabetes mellitus with hyperglycemia Plan: Uncontrolled. Aware of risk of uncontrolled diabetes. She will start ozempic 0.5 weekly. After 4 weeks she will message-would like to consider increasing the ozempic or adding back the actos She will return in 3 months in the office Orders: Orders AMB Hemoglobin A1c Today E11.65 - Type 2 diabetes mellitus with hyperglycemia Medications: New Ozempic (semaglutide) 0.5 mg (0.736 mL) subcut QWEEK 3 mL 0RF NS Discontinued exenatide microspheres ER (Bydureon BCise) Discontinued Reason: Doctor's Order 2 mg (0.85 mL) subcut Q7D 4 weeks 3.4 mL 2RF tirzepatide (Mounjaro) for 4 weeks Discontinued Reason: Doctor's Order 2.5 mg (0.5 mL) subcut QWEEK 4 weeks 2 mL 0RF Coding Level of Care Code Est Pt Level 4 (43421) Diagnoses Type 2 diabetes mellitus with hyperglycemia, without long-term current use of insulin E11.65 Diabetes mellitus type: type 2 Diabetes mellitus long term acute care registered nurse insulin use: without long term acute care registered nurse use Diabetes mellitus complication status: with hyperglycemia
[2024-07-27 15:03] VITALS: BP 118/70; PULSE 96; BMI 30.1
[2024-07-27 15:14] LABS: Glucose, Whole Blood 214 mg/dL (60-115)
== END 2024-07-27 15:39 | disposition home or self-care (01) ==
PROVIDERS: PCP Internal Medicine; Visit Provider Internal Medicine
DX: E11.65 Type 2 diabetes mellitus with hyperglycemia (principal)

== ENCOUNTER → 2024-07-27 14:58 | Outpatient (BNVA) | payer MEDICARE, MEDICAID, SELFPAY | PROVIDERS: PCP Internal Medicine; Visit Provider Internal Medicine | DX: E11.65 Type 2 diabetes mellitus with hyperglycemia (principal) | CPT/HCPCS: 82947; 83036; 99212 ==

== ENCOUNTER 2024-08-08 15:12 | Outpatient (AMB) | payer MEDICARE, MEDICAID, SELFPAY ==
--- NOTE | 2024-08-08 15:14 | A.OFFPC_ITS ---
Vital Signs 08/08/24 15:16 Height 5 ft 5 in Weight 178 lb BMI 29.6 BP 130/78 Blood Pressure Location Lt brachial Position Sitting Intake Visit Reasons: dm Intake Note: Patient here for a follow up DM Body Wirer Required: No Accompanied by: Daughter Allergies dulaglutide [From Trulicity] Allergy (Intermediate, Verified 08/08/24 15:27) pruritus, swelling latex [LATEX] Allergy (Intermediate, Verified 08/08/24 15:27) Hives erythromycin base [ERYTHROMYCIN BASE] Allergy (Unknown, Verified 08/08/24 15:27) UNKNOWN Penicillins [PENICILLINS] Allergy (Unknown, Verified 08/08/24 15:27) UNKNOWN metformin Adverse Reaction (Intermediate, Uncoded 08/08/24 15:27) abdominal discomfort Medication List - Last Reconciled 08/08/24 by Stephanie Phipps MD aspirin (Aspir-Siri) 325 mg PO DAILY atorvastatin 40 mg PO BEDTIME 90 days blood sugar diagnostic (FreeStyle Lite Strips) As directed checks 1 X/day blood-glucose meter (Accu-Chek Cindy Plus Meter) As directed blood-glucose meter (FreeStyle Lite Meter kit) As directed checks 1 X/day flash glucose scanning reader (FreeStyle Jolene 2 [place]) As directed flash glucose sensor (FreeStyle Jolene 2 Sensor kit) As directed lamotrigine 150 mg PO BID 90 days lancets (FreeStyle Lancets) As directed checks 1 X/day levetiracetam 1,000 mg PO BID lidocaine 5% 1 patch topical DAILY lisinopril 2.5 mg PO DAILY 90 days multivitamin (One-A-Day Essential tablet) 1 tab PO DAILY Ozempic (semaglutide) 0.5 mg (0.736 mL) subcut QWEEK NS pantoprazole 40 mg PO DAILY pioglitazone 15 mg PO DAILY Tobacco use date assessed: 08/08/24 Dental Screening Dental Screen Date: 08/08/24 Did you have a dental visit in the last 12 months?: No Did you have a dental problem in the last 6 months where you did not have access to dental care?: No Was dental information given to patient?: Patient has dentist HPI HPI Comments History of Present Illness Details The patient is a 54-year-old female presenting for follow-up of her Type 2 Diabetes Mellitus and Epilepsy. Her diabetes management is a primary concern, particularly given her recent high Hemoglobin A1c level of 9.3%. She was not on any diabetes medication recently due to insurance transitions. Ozempic 0.25 mg injections weekly have been commenced, this is her second week on it, and there is consideration for titration to 1 mg in future appointments based on response. There is a concurrent discussion regarding whether to reintroduce pioglitazone, but it was determined she should increase Ozempic instead due to its simultaneous weight management benefit. The patient also has Essential Hypertension, which is currently well-controlled on Lisinopril 2.5 mg daily. The patient has a significant history of Epilepsy, managed with Keppra 1000 mg twice daily, and has not experienced recent seizures. In the past, she had a cerebral vascular accident in 2014, leading to persistent right-sided weakness; the stroke was significant enough to necessitate ongoing use of a cane for ambulation. Post-stroke, she has adapted to her limitations and reports some improvement in coordination. Recently, the patient experienced COVID-19 in June but did not require hospitalization. She has no recollection of receiving a seasonal influenza vaccine in the past and is considering it, given her recent history with COVID- 19. [facility] Medical History (Updated 08/08/24 @ 15:45 by Stephanie Phipps MD) Microalbuminuria due to type 2 diabetes mellitus Mild aphasia CVA (cerebral vascular accident) Diabetes Seizures Elevated cholesterol Hypertension Ecchymosis Encounter to establish care Hx of cyst of breast Surgical History Hx of colonoscopy History of partial hysterectomy History of thyroid surgery Family History Mother Bone cancer Hypertension Diabetes Father Diabetes Hypertension Maternal Aunt Breast cancer, Onset Age: 49 Family/Other Mental health disorder Social History Housing: Apartment Alcohol intake: never Patient Tobacco Use Status: Never used Tobacco e-Cigarette/Vaping Use: Never Used Second Hand Smoke Exposure: No service: No Current occupational status: unemployed Cognitive needs: Yes (cane ) Hearing needs: No Vision needs: Yes (glasses) Female Reproductive History Menstrual Age of Menarche: 12 Questionnaire PHQ-9 Over the last 2 weeks, how often have you been bothered by any of the following problems? 1. Little interest or pleasure in doing things: not at all 2. Feeling down, depressed, or hopeless: not at all 3. Trouble falling or staying asleep, or sleeping too much: not at all 4. Feeling tired or having little energy: not at all 5. Poor appetite or overeating: not at all 6. Feeling bad about yourself - or that you are a failure or have let yourself or your family down: not at all 7. Trouble concentrating on things, such as reading the newspaper or watching television: not at all 8. Moving or speaking so slowly that other people could have noticed. Or the opposite - being so fidgety or restless that you have been moving around a lot more than usual: not at all 9. Thoughts that you would be better off or of hurting yourself in some way: not at all Total score: 0 Depression Screening Interpretation: Negative Depression Screening Done: Yes 05081 - PHQ-9 Billing: Yes Source: Developed by Drs. Lamont Beltrán, Pati Jaimes, Bebeto Jerry and colleagues, with an educational lorena from [employer]. Thrive Questionnaire Date Thrive assessed: 08/08/24 I am a: Patient What is your living situation today?: I have a steady place to live Within the past 12 months, did the food you bought not last and you didn't have the money to get more?: Never true Within the past 12 months, did you worry whether your food would run out before you got money to buy more?: Never true Do you have trouble paying for medicines?: No Do you have trouble getting transportation to medical appointments?: No Do you have trouble paying your heating and electricity bill?: No Do you have trouble taking care of your child, family member or friend?: No Do you have trouble with day-to-day activities such as bathing, preparing meals, shopping, managing finances, etc.?: No Are you currently unemployed and looking for a job?: No Are you interested in more education?: No Please select the resources that you would like help with: None Currently or been in a relationship where the following occur: No concerns reported THRIVE Score: 0 AUDIT C Alcohol Use Questionnaire (AUDIT-C) 1. How often do you have a drink containing alcohol?: Never Total Score: 0 Score Reviewed/Action Taken: No RAMESH-7 AMB Questionnaire RAMESH-7 Date RAMESH - 7 assessed: 08/08/24 Feeling nervous, anxious, or on edge: 0 = Not at all Not being able to stop or control worryin = Not at all Worrying too much about different things: 0 = Not at all Trouble relaxin = Not at all Being so restless that it is hard to sit still: 0 = Not at all Becoming easily annoyed or irritable: 0 = Not at all Feeling afraid as if something awful might happen: 0 = Not at all Total RAMESH-7 score (0-4 normal; 5-9 mild; 10-14 moderate; 15-21 severe): 0 Source: Developed by Drs. Lamont Beltrán, Pati Jaimes, Bebeto Jerry and colleagues, with an educational lorena from [employer]. RAMESH-7 Assessment Billing RAMESH-7 Assessment Tool: RAMESH-7 Assessment 03194 Review of Systems Const All systems reviewed & are unremarkable except as noted in HPI and below Card Denies chest pain at rest, Denies chest pain with activity, Denies edema, Denies irregular heart rhythm, Denies claudication, Denies dyspnea, Denies dyspnea on exertion, Denies orthopnea, Denies paroxysmal nocturnal dyspnea and Denies slow heart rate Resp Denies cough, Denies dyspnea and Denies dyspnea on exertion Neuro Reports focal weakness Physical exam (Primary Care) Vital Signs: Last Vital Signs BP 130/78 08/08/24 15:16 BMI result Body Mass Index 29.6 Tobacco/Smoking Status: Tobacco use Status Tobacco use date assessed 08/08/24 08/08/24 15:22 Patient Tobacco Use Status Never used Tobacco 08/08/24 15:22 e-Cigarette/Vaping Use Never Used 08/08/24 15:22 PHQ-9: PHQ-9 Score PHQ-9: Total score 0 08/08/24 15:29 Depression Screening Interpretation: Negative Thrive Assessment: Date of Thrive Assessment Date Thrive assessed 08/08/24 08/08/24 15:22 Currently or been in a relationship where the following occur: No concerns reported Resp Effort & Inspection: normal respiratory effort Auscultation: clear to auscultation bilaterally Cardio Jugular venous distension: no JVD Rate: regular rate Rhythm: regular rhythm Heart sounds: S1 normal heart sound present and S2 normal heart sound present Neuro Motor exam (neuro): Abnormal motor strength present (RUE 1/5, RLE 4/5, LUE and LLE 5/5) Office Procedures Flu Questionnaire Does the patient have a severe egg allergy?: No Does the patient have severe life threatening allergies?: No Does the patient have a fever or illness today?: No Has the patient ever had Guillain-Gay Syndrome?: No Has the patient ever had any past reaction to a flu shot?: No Immunizations Fluarix Triv 0734-9802 (PF) 45 mcg (15 mcg x 3)/0.5 mL IM syringe Performing Provider: Stephanie Phipps MD [place] [facility] [place] [facility] Administered by: LA Robbins on 08/08/24 15:44 Dose Route Admin Location Dispensed Lot Number Expiration Date [facility] [employer] Driving In[employer] 0.5 mL IM Left Deltoid 0.5 mL [id number] 01/16/25 11091-950-22 [employer] VIS Given Date VIS Provided VIS Publication Date 08/08/24 Single Vaccine 21 Eligibility Eligibility Date Funding Source Not [facility] Eligible 08/08/24 Private Coding Level of Care Code Est Pt Level 4 (10458) Complex EM visit Add On G2211 Diagnoses Seizures R56.9 CVA (cerebral vascular accident) I63.9 Type 2 diabetes mellitus with hyperglycemia, without long-term current use of insulin E11.65 Diabetes mellitus complication status: with hyperglycemia Diabetes mellitus long wall mining machine helper insulin use: without long wall mining machine helper use Diabetes mellitus type: type 2 Hyperlipidemia E78.5 Hemiparesis as late effect of cerebrovascular disease, unspecified cerebrovasc ular disease type, unspecified laterality I69.959 Cerebrovascular disease type: unspecified Hemiparesis etiology: late effect of cerebrovascular disease Hemiparesis laterality: unspecified Additional Codes PHQ-9 - 55109 - PHQ-9 Billing: Yes ([id number]) RAMESH-7 Assessment Billing - RAMESH-7 Assessment Tool: RAMESH-7 Assessment 47573 ([id number]) Time Spent (min) 23 Assessment & Plan Assessment & Plan (1) Seizures: Code(s): R56.9 - Unspecified convulsions Category: Medical (2) CVA (cerebral vascular accident): Comment: 2014 Code(s): I63.9 - Cerebral infarction, unspecified Category: Medical (3) Seizures: Code(s): R56.9 - Unspecified convulsions Category: Medical (4) Diabetes mellitus: Code(s): E11.9 - Type 2 diabetes mellitus without complications Category: Medical Qualifiers: Diabetes mellitus complication status: with hyperglycemia Diabetes mellitus long wall mining machine helper insulin use: without snf use Diabetes mellitus type: type 2 Qualified Code(s): E11.65 - Type 2 diabetes mellitus with hyperglycemia (5) Hyperlipidemia: Code(s): E78.5 - Hyperlipidemia, unspecified Category: Medical (6) Hemiparesis: Comment: Right-sided after CVA 11/2014 Code(s): G81.90 - Hemiplegia, unspecified affecting unspecified side Category: Medical Qualifiers: Cerebrovascular disease type: unspecified Hemiparesis etiology: late effect of cerebrovascular disease Hemiparesis laterality: unspecified Qualified Code(s): I69.959 - Hemiplegia and hemiparesis following unspecified cerebrovascular disease affecting unspecified side Plan - Start Ozempic. Re-evaluate in six months to consider potential dose increase: - Maintain current Lisinopril regimen for hypertension management. - Continue Keppra 1000 mg twice daily for epilepsy; monitor for seizure activity. - Consider administering Influenza vaccination today. - Arrange for follow-up laboratory testing in four months to re-evaluate A1c and metabolic control. Patient was informed and verbally consented to the use of an ambient scribe for clinic note documentation during this visit. During the consultation, we reviewed the patient?s management plan for her Type 2 Diabetes, including the initiation of Ozempic with a goal to titrate the dose if A1c levels do not improve significantly. The benefits and risks of pioglitazone were discussed, with current plans to avoid its use due to potential weight gain, instead relying on increasing Ozempic if necessary. Emphasis was placed on following up in six months for re-assessment. We confirmed her blood pressure is under control, and her seizure disorder remains well-managed. For preventative health, I recommended receiving a flu vaccine today contingent on availability. We discussed her past experience with COVID-19 and adherence to cautious plans regarding vaccination. Orders: Orders Microalbumin, Random (w Creat) 4 Months R80.9 - Proteinuria, unspecified Comprehensive [place]. Panel Fast 4 Months R56.9 - Unspecified convulsions Influenza 2299-2299 Immunization Today Z23 - Encounter for immunization Lipid Panel 4 Months E78.5 - Hyperlipidemia, unspecified Patient Instructions: - Continue taking prescribed medications: Ozempic, Lisinopril, and Keppra. - Monitor blood sugar levels at home and report elevated readings. - Use a cane for balance as needed. - Consider flu vaccination if available today. - Return for follow-up in six months to evaluate diabetes management progress. - Seek medical attention if any new symptoms develop or existing symptoms worsen.
[2024-08-08 15:16] VITALS: BP 130/78; BMI 29.6
== END 2024-08-08 15:46 | disposition home or self-care (01) ==
PROVIDERS: PCP Internal Medicine; Visit Provider Internal Medicine
DX: R56.9 Unspecified convulsions (principal); I63.9 Cerebral infarction, unspecified; E11.65 Type 2 diabetes mellitus with hyperglycemia; E78.5 Hyperlipidemia, unspecified; I69.959 Hemiplegia and hemiparesis following unspecified cerebrovascular disease affecting unspecified side; Z23 Encounter for immunization

== ENCOUNTER → 2024-08-08 15:12 | Outpatient (BNVA) | payer MEDICARE, MEDICAID, SELFPAY | PROVIDERS: PCP Internal Medicine; Visit Provider Internal Medicine | DX: Z23 Encounter for immunization (principal); R56.9 Unspecified convulsions; I63.9 Cerebral infarction, unspecified; E11.65 Type 2 diabetes mellitus with hyperglycemia; E78.5 Hyperlipidemia, unspecified; I69.959 Hemiplegia and hemiparesis following unspecified cerebrovascular disease affecting unspecified side | CPT/HCPCS: 90471; 90656; 96127; 99212 ==

== ENCOUNTER 2024-08-29 15:03 | Outpatient (AMB) | payer MEDICARE, MEDICAID, SELFPAY ==
--- NOTE | 2024-08-29 15:10 | MHC.OFFVIS ---
Vital Signs 08/29/24 15:11 Height 5 ft 5 in Weight 176 lb 5.917 oz BMI 29.3 BP 120/74 Blood Pressure Location Lt brachial Position Sitting Pulse 85 Intake Visit Reasons: 5 month follow up Intake Note: Virginie presents in the office as a 5 month follow up. CC: She has coughing and was having issues with her stools so she was give a stool softener and it works at times. Music Professionals Required: No Allergies dulaglutide [From Trulicity] Allergy (Intermediate, Verified 08/29/24 15:11) pruritus, swelling latex [LATEX] Allergy (Intermediate, Verified 08/29/24 15:11) Hives erythromycin base [ERYTHROMYCIN BASE] Allergy (Unknown, Verified 08/29/24 15:11) UNKNOWN Penicillins [PENICILLINS] Allergy (Unknown, Verified 08/29/24 15:11) UNKNOWN metformin Adverse Reaction (Intermediate, Uncoded 08/29/24 15:11) abdominal discomfort HPI HPI 5 month follow up: Details: 54 yr old f here for follow up RECAP: She was seeing October for c diff colitis, colonoscopy was fair prep, plan to rept 5 yrs More recently having trouble with swallowing she had pain on swallowing but not now she did have stroke 2017, residual weakness in right arm and leg she had ba swallow with dysmotility and delayed swallowing with premature spilling into the vallecula, no definite aspiration She has difficulty expressing exactly what her symptoms are, she denies nasal regurgitation INTERIM: she went to [facility] and got advice for her dysphagia no chest pain no abdominal pain no nausea or vomiting sister in attendance EXAM: GENERAL: The patient is well developed and nontoxic. VITAL SIGNS:see workflow HEENT: Nonicteric sclerae, PERRLA, EOMI. Oropharynx clear. Moist mucous membranes. Conjunctivae appear well perfused. No thyroid mass. CHEST: Chest wall is nontender. HEART: Regular rate and rhythm without murmurs. LUNGS: Clear to auscultation bilaterally. ABDOMEN: Soft, positive bowel sounds, nontender, no organomegaly.no flank tenderness SKIN: No rash, no excessive bruising, petechiae, or purpura. NEUROLOGIC: right facial droop, right sided hemiparesis Psych: slight flat affect A/P: 1/ oral pharyngeal dysphagia, related to residual neuro deficit, or from dysmotility 2/2 reflux, PLAN: 1/ stopped PPI, unsure if helped will restart and sister will monitor 2/ can consider EGD if ongoing choking sx, PFSH Medical History (Updated 08/08/24 @ 15:45 by Stephanie Phipps MD) Microalbuminuria due to type 2 diabetes mellitus Mild aphasia CVA (cerebral vascular accident) Diabetes Seizures Elevated cholesterol Hypertension Ecchymosis Encounter to establish care Hx of cyst of breast Surgical History Hx of colonoscopy History of partial hysterectomy History of thyroid surgery Family History Mother Bone cancer Hypertension Diabetes Father Diabetes Hypertension Maternal Aunt Breast cancer, Onset Age: 49 Family/Other Mental health disorder Social History Housing: Apartment Alcohol intake: never Patient Tobacco Use Status: Never used Tobacco e-Cigarette/Vaping Use: Never Used Second Hand Smoke Exposure: No service: No Current occupational status: unemployed Cognitive needs: Yes (cane ) Hearing needs: No Vision needs: Yes (glasses) Female Reproductive History Menstrual Age of Menarche: 12 Physical Exam Vital Signs: Last Vital Signs Pulse 85 08/29/24 15:11 BP 120/74 08/29/24 15:11 BMI result Body Mass Index 29.3 Assessment & Plan Assessment & Plan (1) Abnormal swallowing: Code(s): R13.10 - Dysphagia, unspecified Category: Medical Plan: see above Medications: New polyethylene glycol 3350 (Miralax) 17 grams PO DAILY 850 grams 0RF Refilled pantoprazole 40 mg PO DAILY 90 tabs 2RF Coding Level of Care Code Est Pt Level 3 (85892) Diagnoses Abnormal swallowing R13.10
[2024-08-29 15:11] VITALS: BP 120/74; PULSE 85; BMI 29.3
== END 2024-08-29 15:35 | disposition home or self-care (01) ==
PROVIDERS: PCP Internal Medicine; Visit Provider Internal Medicine Gastroenterology
DX: R13.10 Dysphagia, unspecified (principal)
CPT/HCPCS: 99213

== ENCOUNTER → 2024-08-29 15:03 | Outpatient (BNVA) | payer MEDICARE, MEDICAID, SELFPAY | PROVIDERS: PCP Internal Medicine; Visit Provider Internal Medicine Gastroenterology | DX: R13.10 Dysphagia, unspecified (principal) | CPT/HCPCS: 99212 ==

== ENCOUNTER 2024-09-17 00:39 | Emergency (ER) | payer MEDICARE, MEDICAID, SELFPAY ==
--- NOTE | 2024-09-17 | ECG_ITS ---
Test Reason : CP WEAKNESS Blood Pressure : */* mmHG Vent. Rate : 76 BPM Atrial Rate : 76 BPM P-R Int : 144 ms QRS Dur : 60 ms QT Int : 362 ms P-R-T Axes : 33 13 26 degrees QTcB Int : 407 ms Normal sinus rhythm Cannot rule out Anterior infarct , age undetermined Abnormal ECG When compared with ECG of 11-Jul-2024 07:19, No significant change was found Referred By: Generic ED Physician Electronically Signed By: Qasim Garland
--- NOTE | ~2024-09-17 | XR_ITS ---
CLINICAL HISTORY: cp weakness cough 1 view chest x-ray Comparison: CR/CO/SR - XR CHEST 2V - 07/11/24 06:58 EST Findings: No consolidation or effusion. Similar prominent/enlarged cardiac silhouette. No acute fracture. IMPRESSION: 1. No acute findings. This document has been electronically signed by: Farzad Grady MD on 09/17/2024 01:40:38
[2024-09-17 01:00] VITALS: BP 122/76; PULSE 70
[2024-09-17 01:15] VITALS: PULSE 80; RESP 20; BMI 27.5
[2024-09-17 01:26] LABS: MANUAL DIFF FLAG NO
[2024-09-17 01:28] LABS: Basophils Absolute Auto 0.1 X10*3/uL (0.0-0.2); Basophils Percent Auto 0.6 % (0-2); Eosinophils Absolute Auto 0.3 X10*3/uL (0.0-0.4); Eosinophils Percent Auto 3.5 % (0-4); Hematocrit 36.7 % (37.0-47.0); Imm Gran Abs Auto 0.01 X10*3/uL (0.00-0.03); Imm Gran Pct Auto 0.1 % (0.0-0.4); Lymphocytes Absolute Auto 2.9 X10*3/uL (1.2-4.9); Lymphocytes Percent Auto 35.7 % (20-40); Mean Corpuscular HGB Conc 35.4 g/dl (31.0-35.0); Mean Corpuscular Hemoglobin 29.6 pg (27.0-33.0); Mean Corpuscular Volume 83.6 fL (80.0-98.0); Mean Platelet Volume 8.4 fL (9.4-12.3); Monocytes Absolute Auto 0.5 X10*3/uL (0.1-1.2); Monocytes Percent Auto 6.4 % (2-11); Neutrophils Absolute Auto 4.4 x10*3/uL (2.0-8.3); Neutrophils Percent Auto 53.7 % (45-73); Platelet Count 346 X10*3/uL (160-400); Red Blood Count 4.39 X10*6/uL (4.20-5.50); Red Cell Distribution Width 12.6 % (11.0-16.0); White Blood Count 8.2 X10*3/uL (4.8-10.8)
[2024-09-17 01:29] VITALS: BP 125/68; PULSE 76; RESP 15; TEMP 36.8; O2SAT 97
[2024-09-17 01:29] LABS: Appearance Urine Clear; Color Urine Yellow; Glucose Urine UA Negative (Negative); Leukocyte Esterase Urine Negative (Negative); Nitrite Urine Negative (Negative); UMIC TRIGGER UACC YES; Urine Blood Trace (Negative); Urine Ketones Negative (Negative); Urine Protein Negative (Neg-Trace)
[2024-09-17 01:34] LABS: Bacteria Urine None Seen (None Seen); Hyaline Casts Urine 0-2 /LPF (0-2); Squamous Epithelial Cell Urine 0-2 /HPF (0-2); WBC Urine 0-5 /HPF (0-5)
--- OUTSIDE RECORDS SUMMARY | 2024-09-17 01:39 | XMS_ITS | Encounter Summary ---
Author Organization [facility] Address [address] [place] [address] Care Team Providers Care Physical Education Teacher Name Role Phone Osiel Gann MD Primary Care Provider Unavail able Aditya Lucero MD Primary Care Provider [phone] Mick Vidal MD Primary Care Provider Regina vailable Encounter Details Date Type Department Care Team Description 01/31/2015 Customer Sales Specialist Report Medical Records [address] [place] [id number] Sites, Radha Amaral MD Social History Tobacco Use Types Packs/Day Years Used Date Smoking Tobacco: Never Smokeless Tobacco: Never Alcohol Use Standard Drinks/Week Comments No 0 (1 standard drink = 0.6 oz pur e alcohol) Sex Assigned at Date Recorded Not on file Job Start Date Occupation Industry Not on file Not on file Not on file documented as of this encounter Plan of Treatment Not on file documented as of this encounter Visit Diagnoses Not on filedocumented in this encounter Care Teams Physical Education Teacher Relationship Specialty Start Date End Date Osiel Gann MD PCP - General 03/10/02 06/16/17 Aditya Lucero MD [address] [place] [address] [phone] PCP - General Internal Medicine 06/17/17 10/17/21 Mick Vidal MD [address] [place] [id number] PCP - General Internal Medicine 10/18/21 documented as of this encounter
--- OUTSIDE RECORDS SUMMARY | 2024-09-17 01:39 | XMS_ITS | Encounter Summary ---
Author Organization [facility] Address [address] [place] [address] Care Team Providers Care Black Ash Worker Name Role Phone Osiel Gann MD Primary Care Provider Unavail able Aditya Lucero MD Primary Care Provider [phone] Mick Vidal MD Primary Care Provider Regina vailable Encounter Details Date Type Department Care Team Description 05/27/2017 Orders Only Medical Records [address] [place] [id number] Osiel Gann MD Social History Tobacco Use Types Packs/Day [...] on file documented as of this encounter Procedures Procedure Name Priority Date/Time Associated Diagnosis Comments OUTSIDE SLEEP STUDY Routine 05/21/2017 documented in this encounter Results * OUTSIDE SLEEP STUDY (05/21/2017) Osiel Gann MD PULMONOLOGY documented in this encounter Visit Diagnoses Not on filedocumented in this encounter Care Teams Black Ash Worker Relationship Specialty Start Date End Date Osiel Gann MD PCP - General 03/10/02 06/16/17 Aditya Lucero MD [address] [place] [phone] PCP - General Internal Medicine 06/17/17 10/17/21 Mick Vidal MD [address] [place] [phone] PCP - General Internal Medicine 10/18/21 documented as of this encounter
--- OUTSIDE RECORDS SUMMARY | 2024-09-17 01:39 | XMS_ITS | Encounter Summary ---
Author Organization [facility] Address [address] [place] [address] Care Team Providers Care Mine Supervisor Name Role Phone Aditya Lucero MD Primary Care Provider [phone] Mick Vidal MD Primary Care Provider Regina vailable Encounter Details Date Type Department Care Team Description 11/06/2017 Business Doc Medical Records [address] [place], [place] [id number] Abstract, Provider Social History Tobacco Use Types Packs/Day Years [...] on filedocumented in this encounter Care Teams Mine Supervisor Relationship Specialty Start Date End Date Aditya Lucero MD [address] [place] [address] [phone] PCP - General Internal Medicine 06/17/17 10/17/21 Mick Vidal MD [address] [place] [phone] PCP - General Internal Medicine 10/18/21 documented as of this encounter
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
--- OUTSIDE RECORDS SUMMARY | 2024-09-17 01:40 | XMS_ITS | Encounter Summary ---
Author Organization [facility] Address [address] [place] [address] Care Team Providers Care Conservation Officer Name Role Phone Osiel Gann MD Primary Care Provider Unavail able Aditya Lucero MD Primary Care Provider [phone] Mick Vidal MD Primary Care Provider Regina vailable Encounter Details Date Type Department Care Team Description 01/25/2015 [facility] Medical Records [address] [place] [phone] Caitlin Enamorado MD Social History Tobacco Use Types Packs/Day [...] on filedocumented in this encounter Care Teams Conservation Officer Relationship Specialty Start Date End Date Osiel Gann MD PCP - General 03/10/02 06/16/17 Aditya Lucero MD [address] [place] [address] [phone] PCP - General Internal Medicine 06/17/17 10/17/21 Mick Vidal MD [address] [place] [address] [phone] PCP - General Internal Medicine 10/18/21 documented as of this encounter
--- OUTSIDE RECORDS SUMMARY | 2024-09-17 01:40 | XMS_ITS | Encounter Summary ---
Author Organization [facility] Address [address] [place] [address] Care Team Providers Care Marketing Support Assistant Name Role Phone Aditya Lucero MD Primary Care Provider [phone] Mick Vidal MD Primary Care Provider Regina vailable Encounter Details Date Type Department Care Team Description 05/25/2020 Home Health Certification Medical Records [address] [place] [address] Home, [facility] [address] [place], [place] [phone] Social History Tobacco Use Types Packs/Day Years Used Date Smoking Tobacco: Never Smokeless Tobacco: Never Alcohol Use Standard Drinks/Week Comments No 0 (1 standard drink = 0.6 oz pur e alcohol) Sex Assigned at Date Recorded Not on file Job Start Date Occupation Industry Not on file Not on file Not on file COVID-19 Exposure Response Date Recorded In the last month, have you been in contact with someone who was confirmed or suspected to have Coronavirus / COVID-19? No / Unsure 05/25/2020 11:01 AM EST documented as of this encounter Plan of Treatment Not on file documented as of this encounter Visit Diagnoses Not on filedocumented in this encounter Care Teams Marketing Support Assistant Relationship Specialty Start Date End Date Aditya Lucero MD [address] [place] [phone] PCP - General Internal Medicine 06/17/17 10/17/21 Mick Vidal MD [address] [place] [phone] PCP - General Internal Medicine 10/18/21 documented as of this encounter
--- OUTSIDE RECORDS SUMMARY | 2024-09-17 01:40 | XMS_ITS | Encounter Summary ---
Author Organization [facility] Address [address] [place] [address] Care Team Providers Care Solder Cream Maker Name Role Phone Aditya Lucero MD Primary Care Provider [phone] Mick Vidal MD Primary Care Provider Regina vailable Encounter Details Date Type Department Care Team Description 09/09/2021 Telephone Adult Medicine [address] [address] Wendy Guerra APRN Social History Tobacco Use Types Packs/Day Years [...] have Coronavirus / COVID-19? No / Unsure 09/09/2021 10:57 AM EST documented as of this encounter Miscellaneous Notes * Telephone Encounter - Kelsie Goodrich M.A. - 09/10/2021 3:26 PM EST Left message for patient to return call second attempt to contact patient * Telephone Encounter - Kelsie Goodrich M.A. - 09/09/2021 12:57 PM EST Left message for patient to return call Re: message from Alejandra Guerra. ----- Message from Wendy Guerra APRN sent at 09/09/2021 12:52 PM EST ----- I sent a message via [employer] [facility] [employer] [facility] but I am not quite sure she will get it. Please let patient know that her x-ray was negative. Thank you. documented in this encounter Plan of Treatment Not on file documented as of this encounter Visit Diagnoses Not on filedocumented in this encounter Care Teams Solder Cream Maker Relationship Specialty Start Date End Date Aditya Lucero MD [address] [place] [address] PCP - General Internal Medicine 06/17/17 10/17/21 Mick Vidal MD [address] [place] [address] PCP - General Internal Medicine 10/18/21 documented as of this encounter
--- OUTSIDE RECORDS SUMMARY | 2024-09-17 01:40 | XMS_ITS | Encounter Summary ---
Author Organization [facility] Address [address] [place] [address] Care Team Providers Care Pipe Line Repairer Name Role Phone Osiel Gann MD Primary Care Provider Unavail able Aditya Lucero MD Primary Care Provider Mick Vidal MD Primary Care Provider Regina vailable Reason for Visit * Reason Onset Date Comments Faxed Order 04/01/2016 [facility] Encounter Details Date Type Department Care Team Description 04/01/2016 Telephone Adult Medicine B - [address] [address] Osiel Gann MD Faxed Order ([facility]) Social History Tobacco Use Types Packs/Day Years [...] encounter Miscellaneous Notes * Telephone Encounter - Patricia Zaidiradha - 04/01/2016 4:02 PM EDT [facility] order form for review, 's signature and fax return to [phone] Delivered to Side B documented in this encounter Plan of Treatment Not on file documented as of this encounter Visit Diagnoses Not on filedocumented in this encounter Care Teams Pipe Line Repairer Relationship Specialty Start Date End Date Osiel Gann MD PCP - General 03/10/02 06/16/17 Aditya Lucero MD [address] [place] [address] PCP - General Internal Medicine 06/17/17 10/17/21 Mick Vidal MD [address] [place] [phone] PCP - General Internal Medicine 10/18/21 documented as of this encounter
--- OUTSIDE RECORDS SUMMARY | 2024-09-17 01:40 | XMS_ITS | Encounter Summary ---
Author Organization [facility] Address [address] [place] [address] Care Team Providers Care Casino Floor Supervisor Name Role Phone Osiel Gann MD Primary Care Provider Unavail able Aditya Lucero MD Primary Care Provider [phone] Mick Vidal MD Primary Care Provider Regina vailable Encounter Details Date Type Department Care Team Description 01/26/2015 Home Health Certification Medical Records [address] [place] [address] Abstract, Provider Social History Tobacco Use Types [...] on filedocumented in this encounter Care Teams Casino Floor Supervisor Relationship Specialty Start Date End Date Osiel Gann MD PCP - General 03/10/02 06/16/17 Aditya Lucero MD [address] [place] [address] [phone] PCP - General Internal Medicine 06/17/17 10/17/21 Mick Vidal MD [address] [place] [address] PCP - General Internal Medicine 10/18/21 documented as of this encounter
--- OUTSIDE RECORDS SUMMARY | 2024-09-17 01:40 | XMS_ITS | Encounter Summary ---
Author Organization [facility] Address [address] [place] [address] Care Team Providers Care Label Cutter Name Role Phone Osiel Gann MD Primary Care Provider Unavail able Aditya Lucero MD Primary Care Provider [phone] Mick Vidal MD Primary Care Provider Regina vailable Reason for Visit * Reason Onset Date Comments Soda Tester Feedback 05/08/2017 Genetics Encounter Details Date Type Department Care Team Description 05/08/2017 Telephone Adult Medicine [facility] [address] [place] [address] Osiel Gann MD Soda Tester Feedback (Genetics) Social History Tobacco Use Types Packs/Day Years [...] encounter Miscellaneous Notes * Telephone Encounter - Chino Sultana - 05/08/2017 3:12 PM EDT Message routed to ordering provider as . On 05/06/2017, an order was placed for Genetic Testing. This patient's insurance plan requires prior authorization for Genetic, DNA and Molecular testing before the test can be performed. Per Hien at [facility], Based on the information that was provided to the insurance company, your patient received a DENIAL for the genetic testing that was ordered. Please have a member of your clinical staff notify the patient regarding this denial, as further follow up or testing may be needed. Thank you, RIch Referrals Cane Piler [facility] Department * Telephone Encounter - Chino Kayy - 05/08/2017 1:20 PM EDT Standardized Prior Authorization Request form completed and faxed to [facility] Case Management for reviewwith last office note and lab order. Awaiting response. documented in this encounter Plan of Treatment Not on file documented as of this encounter Visit Diagnoses Not on filedocumented in this encounter Care Teams Label Cutter Relationship Specialty Start Date End Date Osiel Gann MD PCP - General 03/10/02 06/16/17 Aditya Lucero MD [address] [place] [address] PCP - General Internal Medicine 06/17/17 10/17/21 Mick Vidal MD [address] [place] [address] PCP - General Internal Medicine 10/18/21 documented as of this encounter
--- OUTSIDE RECORDS SUMMARY | 2024-09-17 01:40 | XMS_ITS | Encounter Summary ---
Author Organization [facility] Address [address] [place] [address] Care Team Providers Care Monorail Car Operator Name Role Phone Osiel Gann MD Primary Care Provider Unavail able Aditya Lucero MD Primary Care Provider [phone] Mick Vidal MD Primary Care Provider Regina vailable Encounter Details Date Type Department Care Team Description 10/20/2016 Roll Over Press Operator Report Medical Records [address] [place] [address] Claudio Lorenzo Social History Tobacco Use Types Packs/Day Years [...] on filedocumented in this encounter Care Teams Monorail Car Operator Relationship Specialty Start Date End Date Osiel Gann MD PCP - General 03/10/02 06/16/17 Aditya Lucero MD [address] [place] [address] [phone] PCP - General Internal Medicine 06/17/17 10/17/21 Mick Vidal MD [address] [place] [address] PCP - General Internal Medicine 10/18/21 documented as of this encounter
--- OUTSIDE RECORDS SUMMARY | 2024-09-17 01:40 | XMS_ITS | Encounter Summary ---
Author Organization [facility] Address [address] [place] [address] Care Team Providers Care Wet Cotton Feeder Name Role Phone Osiel Gann MD Primary Care Provider Unavail able Aditya Lucero MD Primary Care Provider [phone] Mick Vidal MD Primary Care Provider Regina vailable Encounter Details Date Type Department Care Team Description 12/18/2014 Tech Ed Teacher Report Medical Records [address] [place] [phone] Social History Tobacco Use Types Packs/Day Years [...] on filedocumented in this encounter Care Teams Wet Cotton Feeder Relationship Specialty Start Date End Date Osiel Gann MD PCP - General 03/10/02 06/16/17 Aditya Lucero MD [address] [place], [place] [phone] PCP - General Internal Medicine 06/17/17 10/17/21 Mick Vidal MD [address] [place] [address] PCP - General Internal Medicine 10/18/21 documented as of this encounter
--- OUTSIDE RECORDS SUMMARY | 2024-09-17 01:40 | XMS_ITS | Encounter Summary ---
Author Organization [facility] Address [address] [place] [address] Care Team Providers Care System Support Specialist Name Role Phone Osiel Gann MD Primary Care Provider Unavail able Aditya Lucero MD Primary Care Provider [phone] Mick Vidal MD Primary Care Provider Regina vailable Encounter Details Date Type Department Care Team Description 12/16/2016 Hospital Medical Records [address] [place] [address] [phone] Social History Tobacco Use Types Packs/Day Years [...] on filedocumented in this encounter Care Teams System Support Specialist Relationship Specialty Start Date End Date Osiel Gann MD PCP - General 03/10/02 06/16/17 Aditya Lucero MD [address] [place] [address] [phone] PCP - General Internal Medicine 06/17/17 10/17/21 Mick Vidal MD [address] [place] [address] PCP - General Internal Medicine 10/18/21 documented as of this encounter
--- OUTSIDE RECORDS SUMMARY | 2024-09-17 01:40 | XMS_ITS | Encounter Summary ---
Author Organization [facility] Address [address] [place] [address] Care Team Providers Care Bee Farmer Name Role Phone Osiel Gann MD Primary Care Provider Unavail able Aditya Lucero MD Primary Care Provider [phone] Mick Vidal MD Primary Care Provider Regina vailable Encounter Details Date Type Department Care Team Description 04/09/2016 Transfer Records Medical Records [address] [place] [address] Abstract, Provider Social History Tobacco Use Types [...] on filedocumented in this encounter Care Teams Bee Farmer Relationship Specialty Start Date End Date Osiel Gann MD PCP - General 03/10/02 06/16/17 Aditya Lucero MD [address] [place] [address] [phone] PCP - General Internal Medicine 06/17/17 10/17/21 Mick Vidal MD [address] [place] [phone] PCP - General Internal Medicine 10/18/21 documented as of this encounter
--- OUTSIDE RECORDS SUMMARY | 2024-09-17 01:40 | XMS_ITS | Encounter Summary ---
Author Organization [facility] Address [address] [place] [address] Care Team Providers Care Steeping Press Operator Name Role Phone Osiel Gann MD Primary Care Provider Unavail able Aditya Lucero MD Primary Care Provider [phone] Mick Vidal MD Primary Care Provider Regina vailable Encounter Details Date Type Department Care Team Description 04/29/2015 [facility] Medical Records [address] [place] [address] Yuliana Garrido Social History Tobacco Use Types Packs/Day Years [...] on filedocumented in this encounter Care Teams Steeping Press Operator Relationship Specialty Start Date End Date Osiel Gann MD PCP - General 03/10/02 06/16/17 Aditya Lucero MD [address] [place] [address] [phone] PCP - General Internal Medicine 06/17/17 10/17/21 Mick Vidal MD [address] [place] [address] PCP - General Internal Medicine 10/18/21 documented as of this encounter
--- OUTSIDE RECORDS SUMMARY | 2024-09-17 01:40 | XMS_ITS | Encounter Summary ---
Author Organization [facility] Address [address] [place] [address] Care Team Providers Care Venture Capitalist Name Role Phone Osiel Gann MD Primary Care Provider Unavail able Aditya Lucero MD Primary Care Provider [phone] Mick Vidal MD Primary Care Provider Regina vailable Encounter Details Date Type Department Care Team Description 04/29/2015 [facility] Medical Records [address] [place] [address] Jong Elam Social History Tobacco Use Types Packs/Day Years [...] on filedocumented in this encounter Care Teams Venture Capitalist Relationship Specialty Start Date End Date Osiel Gann MD PCP - General 03/10/02 06/16/17 Aditya Lucero MD [address] [place] [address] [phone] PCP - General Internal Medicine 06/17/17 10/17/21 Mick Vidal MD [address] [place] [address] PCP - General Internal Medicine 10/18/21 documented as of this encounter
--- OUTSIDE RECORDS SUMMARY | 2024-09-17 01:40 | XMS_ITS | Encounter Summary ---
Author Organization [facility] Address [address] [place] [address] Care Team Providers Care Tape Machine Tailer Name Role Phone Osiel Gann MD Primary Care Provider Unavail able Aditya Lucero MD Primary Care Provider Mick Vidal MD Primary Care Provider Regina vailable Encounter Details Date Type Department Care Team Description 03/12/2017 Walk In Clinic Visit Medical Records [address] [place] [address] Abstract, Provider Social History Tobacco Use Types [...] on filedocumented in this encounter Care Teams Tape Machine Tailer Relationship Specialty Start Date End Date Osiel Gann MD PCP - General 03/10/02 06/16/17 Aditya Lucero MD [address] [place] [address] [phone] PCP - General Internal Medicine 06/17/17 10/17/21 Mick Vidal MD [address] [place] [phone] PCP - General Internal Medicine 10/18/21 documented as of this encounter
--- OUTSIDE RECORDS SUMMARY | 2024-09-17 01:40 | XMS_ITS | Encounter Summary ---
Author Organization [facility] Address [address] [place] [address] Care Team Providers Care Registered Dental Assistant Name Role Phone Osiel Gann MD Primary Care Provider Unavail able Aditya Lucero MD Primary Care Provider [phone] Mick Vidal MD Primary Care Provider Regina vailable Reason for Visit * Reason Onset Date Comments Pre Op Visit 12/24/2016 addendum Encounter Details Date Type Department Care Team Description 12/24/2016 Telephone Adult Medicine [address] [address] Osiel Gann MD Pre Op Visit (addendum) Social History Tobacco Use Types Packs/Day Years [...] encounter Miscellaneous Notes * Telephone Encounter - Diana Iglesias - 12/24/2016 9:43 AM EDT Please complete pre-op note when you get a chance pradeep 's office calling. Please advise? documented in this encounter Plan of Treatment Not on file documented as of this encounter Visit Diagnoses Not on filedocumented in this encounter Care Teams Registered Dental Assistant Relationship Specialty Start Date End Date Osiel Gann MD PCP - General 03/10/02 06/16/17 Aditya uLcero MD [address] [place] [address] PCP - General Internal Medicine 06/17/17 10/17/21 Mick Vidal MD [address] [place] [address] PCP - General Internal Medicine 10/18/21 documented as of this encounter
--- OUTSIDE RECORDS SUMMARY | 2024-09-17 01:40 | XMS_ITS | Encounter Summary ---
Author Organization [facility] Address [address] [place] [address] Care Team Providers Care Loom Fixer Helper Name Role Phone Aditya Lucero MD Primary Care Provider [phone] Mick Vidal MD Primary Care Provider Regina vailable Encounter Details Date Type Department Care Team Description 03/15/2018 Orders Only Medical Records [address] [place] [address] Thong Coreas MD [address] [place] [address] Social History Tobacco Use Types Packs/Day Years [...] Name Priority Date/Time Associated Diagnosis Comments OUTSIDE PATHOLOGY Routine 03/10/2018 documented in this encounter Results * OUTSIDE PATHOLOGY (03/10/2018) Thong Coreas MD OUTSIDE LAB documented in this encounter Visit Diagnoses Not on filedocumented in this encounter Care Teams Loom Fixer Helper Relationship Specialty Start Date End Date Aditya Lucero MD [address] [place], [place] [phone] PCP - General Internal Medicine 06/17/17 10/17/21 Mick Vidal MD [address] [place] [address] PCP - General Internal Medicine 10/18/21 documented as of this encounter
--- OUTSIDE RECORDS SUMMARY | 2024-09-17 01:40 | XMS_ITS | Encounter Summary ---
Author Organization [facility] Address [address] [place] [address] Care Team Providers Care Rotary Furnace Tender Name Role Phone Osiel Gann MD Primary Care Provider Unavail able Aditya Lucero MD Primary Care Provider [phone] Mick Vidal MD Primary Care Provider Regina vailable Encounter Details Date Type Department Care Team Description 04/24/2015 Release of Information Medical Records [address] [place] [address] Abstract, Provider Social History Tobacco Use Types [...] on filedocumented in this encounter Care Teams Rotary Furnace Tender Relationship Specialty Start Date End Date Osiel Gann MD PCP - General 03/10/02 06/16/17 Aditya Lucero MD [address] [place] [address] [phone] PCP - General Internal Medicine 06/17/17 10/17/21 Mick Vidal MD [address] [place] [phone] PCP - General Internal Medicine 10/18/21 documented as of this encounter
--- OUTSIDE RECORDS SUMMARY | 2024-09-17 01:40 | XMS_ITS | Encounter Summary ---
Author Organization [facility] Address [address] [place] [address] Care Team Providers Care Research Scientist Name Role Phone Osiel Gann MD Primary Care Provider Unavail able Aditya Lucero MD Primary Care Provider [phone] Mick Vidal MD Primary Care Provider Regina vailable Encounter Details Date Type Department Care Team Description 03/16/2017 Hepatology Physician Report Medical Records [address] [place] [address] Daniela Johnsonricia [address] [place] [address] Social History Tobacco Use Types Packs/Day Years [...] on filedocumented in this encounter Care Teams Research Scientist Relationship Specialty Start Date End Date Osiel Gann MD PCP - General 03/10/02 06/16/17 Aditya Lucero MD [address] [place] [address] [phone] PCP - General Internal Medicine 06/17/17 10/17/21 Mick Vidal MD [address] [place] [address] PCP - General Internal Medicine 10/18/21 documented as of this encounter
--- OUTSIDE RECORDS SUMMARY | 2024-09-17 01:40 | XMS_ITS | Encounter Summary ---
Author Organization [facility] Address [address] [place] [address] Care Team Providers Care Liner Inserter Name Role Phone Aditya Lucero MD Primary Care Provider [phone] Mick Vidal MD Primary Care Provider Regina vailable Reason for Visit * Reason Onset Date Comments Faxed Order 12/12/2020 Encounter Details Date Type Department Care Team Description 12/12/2020 Telephone Adult Medicine [address] [phone] Aditya Lucero MD [address] [place] [address] [phone] Faxed Order Social History Tobacco Use Types Packs/Day Years [...] have Coronavirus / COVID-19? No / Unsure 12/03/2020 1:04 PM EDT documented as of this encounter Miscellaneous Notes * Telephone Encounter - Jayla Velasco - 12/12/2020 2:24 PM EDT [facility] IS FAXING ORDERS TO BE SIGN AND FAX BACK TO [phone]. documented in this encounter Plan of Treatment Not on file documented as of this encounter Visit Diagnoses Not on filedocumented in this encounter Care Teams Liner Inserter Relationship Specialty Start Date End Date Aditya Lucero MD [address] [place] [address] [phone] PCP - General Internal Medicine 06/17/17 10/17/21 Mick Vidal MD [address] [place] [address] PCP - General Internal Medicine 10/18/21 documented as of this encounter
--- OUTSIDE RECORDS SUMMARY | 2024-09-17 01:40 | XMS_ITS | Encounter Summary ---
Author Organization [facility] Address [address] [place] [address] Care Team Providers Care General Accounting Clerk Name Role Phone Osiel Gann MD Primary Care Provider Unavail able Aditya Lucero MD Primary Care Provider [phone] Mick Vidal MD Primary Care Provider Regina vailable Encounter Details Date Type Department Care Team Description 10/23/2016 Orders Only Medical Records [address] [place] [address] Abbi Kauffman MD [address] [place] [address] [phone] Social History Tobacco Use Types Packs/Day Years [...] Date/Time Associated Diagnosis Comments OUTSIDE PATHOLOGY Routine 10/16/2016 documented in this encounter Results * OUTSIDE PATHOLOGY (10/16/2016) Abbi Kauffman MD OUTSIDE LAB documented in this encounter Visit Diagnoses Not on filedocumented in this encounter Care Teams General Accounting Clerk Relationship Specialty Start Date End Date Osiel Gann MD PCP - General 03/10/02 06/16/17 Aditya Lucero MD [address] [place] [address] [phone] PCP - General Internal Medicine 06/17/17 10/17/21 Mick Vidal MD [address] [place] [address] PCP - General Internal Medicine 10/18/21 documented as of this encounter
--- OUTSIDE RECORDS SUMMARY | 2024-09-17 01:40 | XMS_ITS | Encounter Summary ---
Author Organization [facility] Address [address] [place] [address] Care Team Providers Care Railroad Supervisor Of Engines Name Role Phone Osiel Gann MD Primary Care Provider Unavail able Aditya Lucero MD Primary Care Provider [phone] Mick Vidal MD Primary Care Provider Regina vailable Encounter Details Date Type Department Care Team Description 01/03/2015 [facility] Medical Records [address] [place] [address] Chuyita Dominique Social History Tobacco Use Types Packs/Day Years [...] on filedocumented in this encounter Care Teams Railroad Supervisor Of Engines Relationship Specialty Start Date End Date Osiel Gann MD PCP - General 03/10/02 06/16/17 Aditya Lucero MD [address] [place] [address] [phone] PCP - General Internal Medicine 06/17/17 10/17/21 Mick Vidal MD [address] [place] [phone] PCP - General Internal Medicine 10/18/21 documented as of this encounter
--- OUTSIDE RECORDS SUMMARY | 2024-09-17 01:40 | XMS_ITS | Encounter Summary ---
Author Organization [facility] Address [address] [place] [address] Care Team Providers Care Line Tester Name Role Phone Osiel Gann MD Primary Care Provider Unavail able Aditya Lucero MD Primary Care Provider [phone] Mick Vidal MD Primary Care Provider Regina vailable Encounter Details Date Type Department Care Team Description 04/06/2015 [facility] Supervisor Report Medical Records [address] [place] [address] [phone] Social History Tobacco Use Types Packs/Day Years [...] on filedocumented in this encounter Care Teams Line Tester Relationship Specialty Start Date End Date Osiel Gann MD PCP - General 03/10/02 06/16/17 Aditya Lucero MD [address] [place] [address] [phone] PCP - General Internal Medicine 06/17/17 10/17/21 Mick Vidal MD [address] [place] [phone] PCP - General Internal Medicine 10/18/21 documented as of this encounter
--- OUTSIDE RECORDS SUMMARY | 2024-09-17 01:40 | XMS_ITS | Clinical Summary ---
Author Organization [facility] Address [address] [place] [address] Care Team Providers Care Ball Machine Operator Name Role Phone Mick Vidal MD Primary Care Provider Regina vailable Allergies Active Allergy Reactions Severity Noted Date Comments A-T-S Rash/Dermatitis 08/14/2005 Latex Rash/Dermatitis 03/08/2014 Medications Medication Sig Dispensed Refills Start Date End Date Status Multiple Vitamins-Minerals (ONE-A-DAY WOMENS VITACRAVES) Chew Tab Take by mouth. 0 Active aspirin 325 MG tablet Take 325 mg by mouth daily. 0 Active lamotrigine (LAMICTAL) 150 MG tablet Take 150 mg by mouth 2 Times Daily. 0 12/10/2019 Active triamcinolone acetonide (Kenalog) 40 MG/ML injection Inject 0.5 mL into the muscle once for 1 dose. This was not intramuscular treatment, this is intralesional. 0.5 mL 0 01/31/2021 Active lisinopril (PRINIVIL,ZESTRIL) 2.5 MG tablet TAKE 1 TABLET BY MOUTH DAILY 30 tablet 5 05/29/2021 Active levetiracetam (KEPPRA) 1000 MG tablet Take 1 tablet by mouth 2 times daily. 0 07/19/2021 Active atorvastatin (LIPITOR) 20 MG tablet Take 1 tablet by mouth daily. 90 tablet 1 07/22/2021 Active TRIAMCINOLONE ACETONIDE, TOP, 0.05 % Ointment Apply 1 g topically 2 times daily. Use up to 2weeks and then discontinue for 2 weeks 30 g 0 07/22/2021 Active clotrimazole (LOTRIMIN) 1 % cream Apply to affected area twice a day for 2 weeks. 30 g 1 09/09/2021 Active Accu-Chek Cindy Plus strip Check blood sugars daily. 100 Strip 1 09/09/2021 Active Blood Glucose Monitoring Suppl (Accu-Chek Cindy Plus) w/Device Kit Use to check blood sugars once daily 1 Kit 0 09/09/2021 Active Accu-Chek Multiclix Lancets MiscIndications:Typ e 2 diabetes mellitus with neurological manifestations, controlled ([facility]) Check blood sugars daily 200 Each 1 09/09/2021 Active Active Problems Problem Noted Date Type 2 diabetes mellitus with microalbum inuria 09/12/2020 Positive PPD 04/09/2018 Snoring 05/27/2017 Overview: 05/2017 Home Sleep Study did not reveal sleep apnea. 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 01/01-eco with bublle no shunt 03/23/15- AC management transferred to [facility]. 05/29/16- warfarin stopped per Neuro. On asa 81 mg daily. Convulsion 02/08/2015 Overview: effexor and neurontin started at [facility] and were stopped due to ? seizure Goiter 01/09/2011 Overview: FNA 05/31 Benign Fibroid, uterine 06/17/2007 Dysmenorrhea 07/07/2006 Nonspecific reaction to tuberculin skin test without active tuberculosis 07/07/2006 Overview: Rxd; [facility] IMO update Iron deficiency anemia 03/17/2006 FNA Right breast mass- fibroadenoma 12/18 Cough Postnasal drip Problems with swallowing and mastication Immunizations Name Administration Dates Next Due Hepatitis I-Yvrel-Hwtnpuyw + 02/23/2009 Influenza (> 6 Months) 04/08/2016 Influenza Vaccine-preservati ve Free-quadrivalent 4 Years 05/25/2020 Influenza Vaccine-quadrivalent 4 Years Plus 1009/2017,05/06/2017 Iladjew-Emlst-Lezoejtr + 02/23/2009 Gswwt-Zaopw-Vyftvvtg + 02/23/2009 PPD-RBMG 04/07/2018 Pneumoccoccal(Adult) Polysaccharide PPSV23 05/06 Oausgqq-Bwjos-Khqnpfzr + 02/23/2009 TETANUS/DIPTHERIA (ADULT) 03/22/2002 Tdap 01/24/2013 Varicella Titre-Positive + 02/23/2009 Family History Medical History Relation Name Comments Hypertension Father CA Breast Maternal Grandmother Arthritis Mother hand Diabetes Mother Hypertension Mother fibroid Mother fibroids Sister x 3 CA Colon Negative Hx CA Ovarian Negative Hx Relation Name Status Comments Father Maternal Grandmother Mother Sister Social History Tobacco Use Types Packs/Day Years Used Date Smoking Tobacco: Never Smokeless Tobacco: Never Alcohol Use Standard Drinks/Week Comments No 0 (1 standard drink = 0.6 oz pur e alcohol) Sex Assigned at Date Recorded Not on file Job Start Date Occupation Industry Not on file Not on file Not on file Last Filed Vital Signs Vital Sign Reading Time Taken Comments Blood Pressure 119/81 12/12/2021 2:03 PM EDT Pulse 81 12/12/2021 2:03 PM EDT Temperature 36.8 ??C (98.3 ??F) 09/09/2021 1 1:12 AM EST Respiratory Rate 16 09/09/2021 11:1 2 AM EST Oxygen Saturation 98% 09/10/2020 1:27 PM EST Inhaled Oxygen Concentration - - Weight 80.2 kg (176 lb 12.8 oz) 12/12/2021 2:03 PM EDT Height 165.1 cm (5' 5 ) 09/09/2021 11:1 2 AM EST Body Mass Index 29.42 09/09/2021 11:12 AM EST Plan of Treatment Health Maintenance Due Date Last Done Comments Covid-19 Vaccine (#1) 1972 DEPRESSION SCREEN 06/29/2018 06/29/2017 CERVICAL CANCER SCREENING 11/04/20202017 (Completed), 05/06/2017 (Exception), 10/28/2012, Additional history exists BASELINE HEALTH EXAM 40-64 04/26/202104/26, 04/21/2018, 04/08/2016 (Completed), Additional history exists DIABETES: BLOOD SUGAR CONTRO L TEST (HGBA1C) 08/13/2021 05/13/2021, 09/10/2020, 05/25/2020, Additional history exists DIABETES: ANNUAL FOOT EXAM 09/11/202109/11 (Completed), 09/11/2020, 08/17/2019 (Completed), Additional history exists COLON CANCER SCREENING 2022 SHINGLES VACCINE (1 of 2) 2022 DIABETES: ANNUAL EYE EXAM 04/12/20222020, 01/03/2020, 06/08/2018 (Completed), Additional history exists DIABETES/HEART DISEASE: JARED AL CHOLESTEROL (LDL) 05/13/2022 05/13/2021, 09/10/2020, 08/17/2019, Additional history exists DIABETES: ANNUAL URINE PROTE IN TEST (MICROALBUMIN) 05/14/2022 05/14/2021, 09/10/2020, 08/17/2019, Additional history exists MAMMOGRAM 09/23/2022 09/23/2021, 03/0 07/2020, 08/31/2019, Additional history exists DTAP/TDAP/TD (2 - Td or Tdap) 01/24/2023 01/24/2013 INFLUENZA (#1) 2024 05/25/2020, 07/21 (Refused), 04/21/2018, Additional history exists BMI CHECK/ADVISE 07/20/2024 09/10/2020, 10/2019, 05/25/2020, Additional history exists PNEUMOCOCCAL VACCINE FOR HIG H RISK PATIENTS (#2) 2037 05/06/2017 HEPATITIS C SCREENING Completed 12/02/2010, 008 Care Teams Ball Machine Operator Relationship Specialty Start Date End Date Mick Vidal MD PCP - General Internal Medicine 10/18/21
--- OUTSIDE RECORDS SUMMARY | 2024-09-17 01:40 | XMS_ITS | Encounter Summary ---
Author Organization [facility] Address [address] [place] [address] Care Team Providers Care Lunchroom Monitor Name Role Phone Aditya Lucero MD Primary Care Provider [phone] Mick Vidal MD Primary Care Provider Regina vailable Encounter Details Date Type Department Care Team Description 01/08/2018 Business Doc Medical Records [address] [place], [place] [id number] Abstract, Provider Social History Tobacco Use Types [...] on filedocumented in this encounter Care Teams Lunchroom Monitor Relationship Specialty Start Date End Date Aditya Lucero MD [address] [place] [address] [phone] PCP - General Internal Medicine 06/17/17 10/17/21 Mick Vidal MD [address] [place] [phone] PCP - General Internal Medicine 10/18/21 documented as of this encounter
--- OUTSIDE RECORDS SUMMARY | 2024-09-17 01:40 | XMS_ITS | Encounter Summary ---
Author Organization [facility] Address [address] [place] [address] Care Team Providers Care Batch Records Clerk Name Role Phone Osiel Gann MD Primary Care Provider Unavail able Aditya Lucero MD Primary Care Provider [phone] Mick Vidal MD Primary Care Provider Regina vailable Reason for Referral * EXTERNAL - Authorized/Booked Specialty Diagnoses / Procedures Referred By Contac t Referred To Contact Occupational Medicine / Occupational therapy Diagnoses Late effects of cerebrovascular disease Aphasia as late effect of cerebrovascular accident Hemiplegia, post-stroke (HCC) Procedures REFERRAL TO OCCUPATIONAL THERAPY Osiel Gann MD [address] [place] [address] [phone] External Occupational Referral ID Status Reason Start Date Expiration Date V isits Requested Visits Authorized SEE NOTE Authorized/B ooked 05/12/2016 08/12/2016 1 1 * Non BRANDEE - Authorized/Booked Specialty Diagnoses / Procedures Referred By Contac t Referred To Contact Physical Therapy Diagnoses Late effects of cerebrovascular disease Aphasia as late effect of cerebrovascular accident Hemiplegia, post-stroke (HCC) Procedures REFERRAL TO PHYSICAL THERAPY Osiel Gann MD [address] [place] [phone] External Phys Thrpy Referral ID Status Reason Start Date Expiration Date V isits Requested Visits Authorized SEE NOTE Authorized/B ooked 05/12/2016 08/12/2016 1 1 Reason for Visit * Reason Onset Date Comments Faxed Order 05/12/2016 Encounter Details Date Type Department Care Team Description 05/12/2016 Telephone Adult Medicine - [address] [address] Osiel Gann MD Faxed Order Social History Tobacco Use Types [...] encounter Miscellaneous Notes * Telephone Encounter - Estephania Reed - 05/12/2016 11:40 AM EDT Please fax order for PT and OT to [facility] at [phone] documented in this encounter Plan of Treatment Not on file documented as of this encounter Visit Diagnoses Diagnosis CVA Unspecified late effects of cerebrovascular disease Aphasia as late effect of cerebrovascular accident Aphasia, late effect of cerebrovascular disease Hemiplegia, post-stroke Hemiplegia affecting unspecified side, late effect of cerebrovascular disease documented in this encounter Care Teams Batch Records Clerk Relationship Specialty Start Date End Date Osiel Gann MD PCP - General 03/10/02 06/16/17 Aditya Lucero MD [address] [place] [id number] PCP - General Internal Medicine 06/17/17 10/17/21 Mick Vidal MD [address] [place] [phone] PCP - General Internal Medicine 10/18/21 documented as of this encounter
--- OUTSIDE RECORDS SUMMARY | 2024-09-17 01:40 | XMS_ITS | Encounter Summary ---
Author Organization [facility] Address [address] [place] [address] Care Team Providers Care Rn Case Manager Hospice Name Role Phone Osiel Gann MD Primary Care Provider Unavail able Aditya Lucero MD Primary Care Provider [phone] Mick Vidal MD Primary Care Provider Regina vailable Reason for Visit * Reason Onset Date Comments TEST RESULTS 04/25/2016 Encounter Details Date Type Department Care Team Description 04/25/2016 Telephone Adult Medicine - [place] [address] [place] [address] Osiel Gann MD TEST RESULTS Social History Tobacco Use Types Packs/Day Years [...] encounter Miscellaneous Notes * Telephone Encounter - Jhoan TOVAR - 04/25/2016 11:19 AM EDT Made several attempts to contact pt concerning labs Sent pt letter to call office Dr Gann would like to speak with her * Telephone Encounter - Jhoan TOVAR - 04/25/2016 11:18 AM EDT Message copied by JHOAN PADILLA on ThuApr 25, 2016 11:18 AM ------ Message from: OSIEL GANN M.D. Created: [facility] Apr 24, 2016 8:09 PM Unable to reach by phone-several attemps. Please get the patient on the telephone & give the call to me. ------ documented in this encounter Plan of Treatment Not on file documented as of this encounter Visit Diagnoses Not on filedocumented in this encounter Care Teams Rn Case Manager Hospice Relationship Specialty Start Date End Date Osiel Gann MD PCP - General 03/10/02 06/16/17 Aditya Lucero MD [address] [place] [address] PCP - General Internal Medicine 06/17/17 10/17/21 Mick Vidal MD [address] [place] [address] PCP - General Internal Medicine 10/18/21 documented as of this encounter
--- OUTSIDE RECORDS SUMMARY | 2024-09-17 01:40 | XMS_ITS | Encounter Summary ---
Author Organization [facility] Address [address] [place] [address] Care Team Providers Care Tare Worker Name Role Phone Osile Gann MD Primary Care Provider Unavail able Aditya Lucero MD Primary Care Provider [phone] Mick Vidal MD Primary Care Provider Regina vailable Reason for Visit * Reason Onset Date Comments Online Marketing Specialist Feedback 10/09/2016 Genetics Encounter Details Date Type Department Care Team Description 10/09/2016 Telephone Adult Medicine [facility] [address] [place] [address] Osiel Gann MD Online Marketing Specialist Feedback (Genetics) Social History Tobacco Use Types [...] * Telephone Encounter - Chino Sultana - 10/09/2016 1:56 PM EDT GeneticDenial Message routed to ordering provider as . On 10/07/2016, an order was placed for Genetic Testing. This patient's insurance plan requires prior authorization for Genetic, DNA and Molecular testing before the test can be performed. Based on the information that was provided to the insurance company, your patient received a DENIALfor the genetic testing that was ordered. Please have a member of your clinical staff notify the patient regarding this denial, as further follow up or testing may be needed. Thank you, Rich Referrals Hazmat Cdl Driver [facility] Department * Telephone Encounter - Chino Kayy - 10/09/2016 9:00 AM EDT GeneticOutOfNetwork Standardized Prior Authorization Request form completed and faxed to [facility] Case Management for reviewwith last office note and lab order. Awaiting response. documented in this encounter Plan of Treatment Not on file documented as of this encounter Visit Diagnoses Not on filedocumented in this encounter Care Teams Tare Worker Relationship Specialty Start Date End Date Osiel Gann MD PCP - General 03/10/02 06/16/17 Aditya Lucero MD [address] [place] [phone] PCP - General Internal Medicine 06/17/17 10/17/21 Mick Vidal MD [address] [place] [phone] PCP - General Internal Medicine 10/18/21 documented as of this encounter
--- OUTSIDE RECORDS SUMMARY | 2024-09-17 01:40 | XMS_ITS | Encounter Summary ---
Author Organization [facility] Address [address] [place] [address] Care Team Providers Care Surveillance Technician Name Role Phone Aditya Lucero MD Primary Care Provider [phone] Mick Vidal MD Primary Care Provider Regina vailable Reason for Visit * Reason Comments E-prescribe Rx Request Encounter Details Date Type Department Care Team Description 02/12/2021 Refill Adult Medicine [address] [phone] Aditya Lucero MD [address] [place] [address] [phone] E-prescribe Rx Request Social History Tobacco Use Types Packs/Day Years [...] have Coronavirus / COVID-19? No / Unsure 01/31/2021 1:22 PM EDT documented as of this encounter Miscellaneous Notes * Telephone Encounter - Shelia Liu M.A. - 02/12/2021 11:17 AM EDT Lab Results Component Value Date HGBA1C 6.6 09/10/2020 MALBUR 151.0 09/10/2020 MALBCR 67.7 09/10/2020 CHOL 144 09/10/2020 LDL 91 09/10/2020 HDL 40 09/10/2020 TRIG 69 09/10/2020 GLU 69 09/10/2020 CREAT 0.84 09/10/2020 Pending appt with pcp 04/22/21 * Telephone Encounter - Carito Feng - 02/12/2021 10:30 AM EDT Patient would like script to be: E-PRESCRIBED/FAXED TO PHARMACY WHEN WAS THE PATIENT'S LAST APPOINTMENT IN ADULT MEDICINE? 12/19/20 WHEN WAS THE LAST TIME THE PATIENT SAW THEIR PCP? Same as above Does patient have an upcoming appointment? Yes 04/22/21 (THE MEDICATION REQUESTED IS ON THE MED LIST ABOVE) All of the medications requested were on the CURRENT MEDS list Did you check the Pharmacy information above?: YES Patient wants: 90 -day supply Is this a mail order prescription request ? NO If the refill is from a FAXED refill request what is the RX # listed on the fax? N/A Patients current insurance carrier is: Payor: MVA / Plan: [employer] INSURANCE / Product Type: OTHER documented in this encounter Plan of Treatment Not on file documented as of this encounter Visit Diagnoses Not on filedocumented in this encounter Care Teams Surveillance Technician Relationship Specialty Start Date End Date Aditya Lucero MD [address] [place] [phone] PCP - General Internal Medicine 06/17/17 10/17/21 Mick Vidal MD [address] [place] [phone] PCP - General Internal Medicine 10/18/21 documented as of this encounter
--- OUTSIDE RECORDS SUMMARY | 2024-09-17 01:40 | XMS_ITS | Encounter Summary ---
Author Organization [facility] Address [address] [place] [address] Care Team Providers Care Second Baller Name Role Phone Osiel Gann MD Primary Care Provider Unavail able Aditya Lucero MD Primary Care Provider [phone] Mick Vidal MD Primary Care Provider Regina vailable Encounter Details Date Type Department Care Team Description 04/11/2016 Home Health Certification Medical Records [address] [place] [id number] Abstract, Provider Social History Tobacco Use Types [...] on filedocumented in this encounter Care Teams Second Baller Relationship Specialty Start Date End Date Osiel Gann MD PCP - General 03/10/02 06/16/17 Aditya Lucero MD [address] [place] [address] [phone] PCP - General Internal Medicine 06/17/17 10/17/21 Mick Vidal MD [address] [place] [phone] PCP - General Internal Medicine 10/18/21 documented as of this encounter
--- OUTSIDE RECORDS SUMMARY | 2024-09-17 01:40 | XMS_ITS | Encounter Summary ---
Author Organization [facility] Address [address] [place] [address] Care Team Providers Care Billet Cutter Name Role Phone Osiel Gann MD Primary Care Provider Unavail able Aditya Lucero MD Primary Care Provider [phone] Mick Vidal MD Primary Care Provider Regina vailable Reason for Visit * Reason Onset Date Comments TEST RESULTS 01/13/2011 Encounter Details Date Type Department Care Team Description 01/13/2011 Telephone Adult Medicine [facility] [address] [place] [address] Gerald Gallo PA-C TEST RESULTS Social History Tobacco Use Types [...] encounter Miscellaneous Notes * Telephone Encounter - Osiel Gann MD - 01/13/2011 2:20 PM EDT Discussed findings. Awaiting sonogram of the neck * Telephone Encounter - Bailee Emerson R.N. - 01/13/2011 1:22 PM EDT Pat is not in today, please review results inn EMR * Telephone Encounter - Isacc Azevedo - 01/13/2011 11:43 AM EDT Inform patient: ANY URGENT OR ABNORMAL RESULTS WIILL RESULT IN A CALL BACK TO THE PATIENT ALVIN. Type of test: : x-ray of neck tissue Date test was performed: 01/09/11 Where was the test performed: [facility] Who ordered this test?: Gerald Gallo Is the doctor here today?: NO Can the message wait until the doctor returns?: NO IF PATIENT'S PCP IS NOT IN INSTRUCT PATIENT THAT THEY WILL RECEIVE A CALL BACK WHEN THE PCP IS IN THE OFFICE NEXT. documented in this encounter Plan of Treatment Not on file documented as of this encounter Visit Diagnoses Not on filedocumented in this encounter Care Teams Billet Cutter Relationship Specialty Start Date End Date Osiel aGnn MD PCP - General 03/10/02 06/16/17 Aditya Lucero MD [address] [place] [phone] PCP - General Internal Medicine 06/17/17 10/17/21 Mick Vidal MD [address] [place] [phone] PCP - General Internal Medicine 10/18/21 documented as of this encounter
--- OUTSIDE RECORDS SUMMARY | 2024-09-17 01:40 | XMS_ITS | Encounter Summary ---
Author Organization [facility] Address [address] [place] [address] Care Team Providers Care Rubber Splicer Name Role Phone Osiel Gann MD Primary Care Provider Unavail able Aditya Lucero MD Primary Care Provider [phone] Mick Vidal MD Primary Care Provider Regina vailable Encounter Details Date Type Department Care Team Description 04/29/2015 [facility] Medical Records [address] [place] [address] [id number] Social History Tobacco Use Types Packs/Day Years [...] on filedocumented in this encounter Care Teams Rubber Splicer Relationship Specialty Start Date End Date Osiel Gann MD PCP - General 03/10/02 06/16/17 dAitya Lucero MD [address] [place] [address] [phone] PCP - General Internal Medicine 06/17/17 10/17/21 Mick Vidal MD [address] [place] [address] [phone] PCP - General Internal Medicine 10/18/21 documented as of this encounter
--- OUTSIDE RECORDS SUMMARY | 2024-09-17 01:40 | XMS_ITS | Encounter Summary ---
Author Organization [facility] Address [address] [place] [address] Care Team Providers Care Landscape Manager Name Role Phone Osiel Gann MD Primary Care Provider Unavail able Aditya Lucero MD Primary Care Provider [phone] Mick Vidal MD Primary Care Provider Regina vailable Encounter Details Date Type Department Care Team Description 01/26/2017 Valve Technician Report Medical Records [address] [place] [address] Daniela Johnsonricia [address] [place] [address] Social History Tobacco Use Types Packs/Day Years [...] on filedocumented in this encounter Care Teams Landscape Manager Relationship Specialty Start Date End Date Osiel Gann MD PCP - General 03/10/02 06/16/17 Aditya Lucero MD [address] [place] [address] [phone] PCP - General Internal Medicine 06/17/17 10/17/21 Mick Vidal MD [address] [place] [address] [phone] PCP - General Internal Medicine 10/18/21 documented as of this encounter
--- OUTSIDE RECORDS SUMMARY | 2024-09-17 01:40 | XMS_ITS | Encounter Summary ---
Author Organization [facility] Address [address] [place] [address] Care Team Providers Care Account Development Specialist Name Role Phone Osiel Gann MD Primary Care Provider Unavail able Aditya Lucero MD Primary Care Provider [phone] Mick Vidal MD Primary Care Provider Regina vailable Encounter Details Date Type Department Care Team Description 10/16/2016 [facility] Medical Records [address] [place] [address] 56[address] Abbi Kauffman MD [address] [place] [address] [phone] Social History Tobacco Use Types Packs/Day Years [...] on filedocumented in this encounter Care Teams Account Development Specialist Relationship Specialty Start Date End Date Osiel Gann MD PCP - General 03/10/02 06/16/17 Aditya Lucero MD [address] [place] [address] [phone] PCP - General Internal Medicine 06/17/17 10/17/21 Mick Vidal MD [address] [place] [address] [phone] PCP - General Internal Medicine 10/18/21 documented as of this encounter
--- OUTSIDE RECORDS SUMMARY | 2024-09-17 01:40 | XMS_ITS | Encounter Summary ---
Author Organization [facility] Address [address] [place] [address] Care Team Providers Care Proposal Consultant Name Role Phone Osiel Gann MD Primary Care Provider Unavail able Aditya Lucero MD Primary Care Provider [phone] Mick Vidal MD Primary Care Provider Regina vailable Encounter Details Date Type Department Care Team Description 08/22/2015 Cleaning And Washing Equipment Operator Report Medical Records [address] [place] [address] [id number] Social History Tobacco Use Types Packs/Day Years [...] on filedocumented in this encounter Care Teams Proposal Consultant Relationship Specialty Start Date End Date Osiel Gann MD PCP - General 03/10/02 06/16/17 Aditya Lucero MD [address] [place] [address] [phone] PCP - General Internal Medicine 06/17/17 10/17/21 Mick Vidal MD [address] [place] [address] [phone] PCP - General Internal Medicine 10/18/21 documented as of this encounter
--- OUTSIDE RECORDS SUMMARY | 2024-09-17 01:40 | XMS_ITS | Encounter Summary ---
Author Organization [facility] Address [address] [place] [address] Care Team Providers Care Senior Statistical Programmer Name Role Phone Osiel Gann MD Primary Care Provider Unavail able Aditya Lucero MD Primary Care Provider [phone] Mick Vidal MD Primary Care Provider Regina vailable Encounter Details Date Type Department Care Team Description 04/02/2015 Control Operator Flow Coat Report Medical Records [address] [place] [address] [id number] Social History Tobacco Use Types Packs/Day Years [...] on filedocumented in this encounter Care Teams Senior Statistical Programmer Relationship Specialty Start Date End Date Osiel Gann MD PCP - General 03/10/02 06/16/17 Aditya Lucero MD [address] [place] [address] [phone] PCP - General Internal Medicine 06/17/17 10/17/21 Mick Vidal MD [address] [place] [address] [phone] PCP - General Internal Medicine 10/18/21 documented as of this encounter
--- OUTSIDE RECORDS SUMMARY | 2024-09-17 01:40 | XMS_ITS | Encounter Summary ---
Author Organization [facility] Address [address] [place] [address] Care Team Providers Care Consumer Science Teacher Name Role Phone Osiel Gann MD Primary Care Provider Unavail able Aditya Lucero MD Primary Care Provider [phone] Mick Vidal MD Primary Care Provider Regina vailable Encounter Details Date Type Department Care Team Description 02/20/2017 Home Health Certification Medical Records [address] [place] [address] Abstract, Provider Social History Tobacco Use Types [...] on filedocumented in this encounter Care Teams Consumer Science Teacher Relationship Specialty Start Date End Date Osiel Gann MD PCP - General 03/10/02 06/16/17 Aditya Lucero MD [address] [place] [address] [phone] PCP - General Internal Medicine 06/17/17 10/17/21 Mick Vidal MD [address] [place] [address] [phone] PCP - General Internal Medicine 10/18/21 documented as of this encounter
--- OUTSIDE RECORDS SUMMARY | 2024-09-17 01:40 | XMS_ITS | Encounter Summary ---
Author Organization [facility] Address [address] [place] [address] Care Team Providers Care Sheet Sorter Name Role Phone Osiel Gann MD Primary Care Provider Unavail able Aditya Lucero MD Primary Care Provider [phone] Mick Vidal MD Primary Care Provider Regina vailable Reason for Visit * Reason Onset Date Comments Provider Call Back 10/17/2016 Encounter Details Date Type Department Care Team Description 10/17/2016 Telephone General Surgery [address] [place] [address] [phone] Abbi Marin MD [address] [place] [address] [phone] Provider Call Back Social History Tobacco Use Types Packs/Day Years [...] encounter Miscellaneous Notes * Telephone Encounter - Kelli De Jesus L.P.N. - 10/17/2016 9:34 AM EDT Spoke to pt given a sooner appt to follow up with Dr Marin. 10/21 * Telephone Encounter - Shelia Delgado - 10/17/2016 8:53 AM EDT Caller requesting call back from provider: Is the caller the patient? NO If caller is not the patient, what is the callers name? Gabriella Canada Callers relationship to patient? sister If person calling is not the patient themselves, is there a verbal release in FYI or permanent comments for this person: YES Reason for call back: In regards, the patient was having a hard time breathing yesterday. Hard timeto swallow. Went back to the ER yesterday. Patient is home now Caller offered to speak with the nurse for assistance: YES Response: Patient would like to talk to Dr Marin documented in this encounter Plan of Treatment Not on file documented as of this encounter Visit Diagnoses Not on filedocumented in this encounter Care Teams Sheet Sorter Relationship Specialty Start Date End Date Osiel Gann MD PCP - General 03/10/02 06/16/17 Aditya Lucero MD [address] [place] [address] 38797 PCP - General Internal Medicine 06/17/17 10/17/21 Mick Vidal MD [address] [place] [address] [phone] PCP - General Internal Medicine 10/18/21 documented as of this encounter
--- OUTSIDE RECORDS SUMMARY | 2024-09-17 01:40 | XMS_ITS | Encounter Summary ---
Author Organization [facility] Address [address] [place] [address] Care Team Providers Care Desktop Publishing Specialist Name Role Phone Osiel Gann MD Primary Care Provider Unavail able Aditya Lucero MD Primary Care Provider [phone] Mick Vidal MD Primary Care Provider Regina vailable Encounter Details Date Type Department Care Team Description 05/02/2016 Student Nurse Report Medical Records [address] [place] [address] 21797 Sites, Radha Amaral MD Social History Tobacco [...] on filedocumented in this encounter Care Teams Desktop Publishing Specialist Relationship Specialty Start Date End Date Osiel Gann MD PCP - General 03/10/02 06/16/17 Aditya Lucero MD [address] [place] [address] [phone] PCP - General Internal Medicine 06/17/17 10/17/21 Mick Vidal MD [address] [place] [address] [phone] PCP - General Internal Medicine 10/18/21 documented as of this encounter
--- OUTSIDE RECORDS SUMMARY | 2024-09-17 01:40 | XMS_ITS | Encounter Summary ---
Author Organization [facility] Address [address] [place] [address] Care Team Providers Care Coin Purse Assembler Name Role Phone Osiel Gann MD Primary Care Provider Unavail able Aditya Lucero MD Primary Care Provider [phone] Mick Vidal MD Primary Care Provider Regina vailable Encounter Details Date Type Department Care Team Description 08/30/2015 Plastics Plater Report Medical Records [address] [place] [address] [phone] Social History Tobacco Use Types Packs/Day Years [...] on filedocumented in this encounter Care Teams Coin Purse Assembler Relationship Specialty Start Date End Date Osiel Gann MD PCP - General 03/10/02 06/16/17 Aditya Lucero MD [address] [place] [address] [phone] PCP - General Internal Medicine 06/17/17 10/17/21 Mick Vidal MD [address] [place] [address] [phone] PCP - General Internal Medicine 10/18/21 documented as of this encounter
--- OUTSIDE RECORDS SUMMARY | 2024-09-17 01:40 | XMS_ITS | Encounter Summary ---
Author Organization [facility] Address [address] [place] [address] Care Team Providers Care Gut Dropper Name Role Phone Mick Vidal MD Primary Care Provider Regina vailable Encounter Details Date Type Department Care Team Description 02/04/2022 Telephone Adult Medicine [address] [address] Mick Vidal MD Social History Tobacco Use Types Packs/Day [...] encounter Miscellaneous Notes * Telephone Encounter - Celio Leggett - 02/04/2022 9:00 AM EDT Call from [facility] , Case # [id number] documented in this encounter Plan of Treatment Not on file documented as of this encounter Visit Diagnoses Not on filedocumented in this encounter Care Teams Gut Dropper Relationship Specialty Start Date End Date Mick Vidal MD PCP - General Internal Medicine 10/18/21 documented as of this encounter
--- OUTSIDE RECORDS SUMMARY | 2024-09-17 01:40 | XMS_ITS | Encounter Summary ---
Author Organization [facility] Address [address] [place] [address] Care Team Providers Care Traveling Construction Superintendent Name Role Phone Osiel Gann MD Primary Care Provider Unavail able Aditya Lucero MD Primary Care Provider [phone] Mick Vidal MD Primary Care Provider Regina vailable Encounter Details Date Type Department Care Team Description 05/25/2017 Strap Stitcher Report Medical Records [address] [place] [address] [facility] Diabetes Education [address] [place] [address] Social History Tobacco Use Types Packs/Day Years [...] on filedocumented in this encounter Care Teams Traveling Construction Superintendent Relationship Specialty Start Date End Date Osiel Gann MD PCP - General 03/10/02 06/16/17 Aditya Lucero MD [address] [place] [address] [phone] PCP - General Internal Medicine 06/17/17 10/17/21 Mick Vidal MD [address] [place] [address] 44857 PCP - General Internal Medicine 10/18/21 documented as of this encounter
--- OUTSIDE RECORDS SUMMARY | 2024-09-17 01:40 | XMS_ITS | Encounter Summary ---
Author Organization [facility] Address [address] [place] [address] Care Team Providers Care Dietetic Technician Registered Name Role Phone Osiel Gann MD Primary Care Provider Unavail able Aditya Lucero MD Primary Care Provider [phone] Mick Vidal MD Primary Care Provider Regina vailable Encounter Details Date Type Department Care Team Description 10/30/2015 Founder President And Ceo Report Medical Records [address] [place] [address] 19729 Georgette Marcano MD Social History Tobacco Use Types Packs/Day [...] on filedocumented in this encounter Care Teams Dietetic Technician Registered Relationship Specialty Start Date End Date Osiel Gann MD PCP - General 03/10/02 06/16/17 Aditya Lucero MD [address] [place], [place] [phone] PCP - General Internal Medicine 06/17/17 10/17/21 Mick Vidal MD [address] [place] [address] 36605 PCP - General Internal Medicine 10/18/21 documented as of this encounter
--- OUTSIDE RECORDS SUMMARY | 2024-09-17 01:40 | XMS_ITS | Encounter Summary ---
Author Organization [facility] Address [address] [place] [address] Care Team Providers Care Salvage Mend Worker Name Role Phone Osiel Gann MD Primary Care Provider Unavail able Aditya Lucero MD Primary Care Provider [phone] Mick Vidal MD Primary Care Provider Regina vailable Encounter Details Date Type Department Care Team Description 12/18/2014 [facility] Medical Records [address] [place] [address] 28831 Katy Carreon MD Social History Tobacco Use Types Packs/Day [...] on filedocumented in this encounter Care Teams Salvage Mend Worker Relationship Specialty Start Date End Date Osiel Gann MD PCP - General 03/10/02 06/16/17 Aditya Lucero MD [address] [place] [address] [phone] PCP - General Internal Medicine 06/17/17 10/17/21 Mick Vidal MD [address] [place] [address] 54506 PCP - General Internal Medicine 10/18/21 documented as of this encounter
--- OUTSIDE RECORDS SUMMARY | 2024-09-17 01:40 | XMS_ITS | Encounter Summary ---
Author Organization [facility] Address [address] [place] [address] Care Team Providers Care Consulting Actuary Name Role Phone Osiel Gann MD Primary Care Provider Unavail able Aditya Lucero MD Primary Care Provider [phone] Mick Vidal MD Primary Care Provider Regina vailable Encounter Details Date Type Department Care Team Description 10/19/2015 Release of Information Medical Records [address] [place] [address] 24099 Abstract, Provider Social History Tobacco Use Types [...] on filedocumented in this encounter Care Teams Consulting Actuary Relationship Specialty Start Date End Date Osiel Gann MD PCP - General 03/10/02 06/16/17 Aditya Lucero MD [address] [place] [address] [phone] PCP - General Internal Medicine 06/17/17 10/17/21 Mick Vidal MD [address] [place] [address] [phone] PCP - General Internal Medicine 10/18/21 documented as of this encounter
--- OUTSIDE RECORDS SUMMARY | 2024-09-17 01:40 | XMS_ITS | Encounter Summary ---
Author Organization [facility] Address [address] [place] [address] Care Team Providers Care Mold Capper Helper Name Role Phone Aditya Lucero MD Primary Care Provider [phone] Mick Vidal MD Primary Care Provider Regina vailable Encounter Details Date Type Department Care Team Description 09/06/2019 Telephone General Surgery - [address] [place] [address] Abbi Kauffman MD [address] [place] [address] [phone] Social History Tobacco Use Types Packs/Day Years [...] encounter Miscellaneous Notes * Telephone Encounter - Ericka Prabhakar M.A. - 09/06/2019 11:54 AM EST Left a vm for pt, to give us a call back to the office * Telephone Encounter - Ericka Prabhakar M.A. - 09/06/2019 11:54 AM EST ----- Message from Abbi Kauffman MD sent at 09/06/2019 8:37 AM EST ----- Please let the patient's HCP know the thyroid u/s showed stable findings. Recommend repeat u/s in 12 months, which has been ordered. Thanks. documented in this encounter Plan of Treatment Not on file documented as of this encounter Visit Diagnoses Not on filedocumented in this encounter Care Teams Mold Capper Helper Relationship Specialty Start Date End Date Aditya Lucero MD [address] [place] [address] PCP - General Internal Medicine 06/17/17 10/17/21 Mick Vidal MD [address] [place] [address] PCP - General Internal Medicine 10/18/21 documented as of this encounter
--- OUTSIDE RECORDS SUMMARY | 2024-09-17 01:40 | XMS_ITS | Encounter Summary ---
Author Organization [facility] Address [address] [place] [address] Care Team Providers Care Donkey Ride Operator Name Role Phone Aditya Lucero MD Primary Care Provider [phone] Mick Vidal MD Primary Care Provider Regina vailable Reason for Visit * Reason Onset Date Comments Faxed Order 09/19/2020 Encounter Details Date Type Department Care Team Description 09/19/2020 Telephone Adult Medicine [address] [phone] Aditya Lucero MD [address] [place] [address] [phone] Faxed Order Social History Tobacco Use Types [...] have Coronavirus / COVID-19? No / Unsure 09/17/2020 10:32 AM EST documented as of this encounter Miscellaneous Notes * Telephone Encounter - Brittani Pagan C.M.A - 12/13/2020 12:58 PM EDT Orders placed on Dr.Yu givens for signature. * Telephone Encounter - Charlotte Mckeon - 12/11/2020 2:11 PM EDT Susan from [facility] refaxing multiple care plans. Requesting forms be completed. * Telephone Encounter - Lisa Mcnair - 09/19/2020 11:16 AM EST More orders * Telephone Encounter - Lisa Mcnair - 09/19/2020 10:35 AM EST Orders from [facility] to be signed and faxed back to [phone] . documented in this encounter Plan of Treatment Not on file documented as of this encounter Visit Diagnoses Not on filedocumented in this encounter Care Teams Donkey Ride Operator Relationship Specialty Start Date End Date Aditya Lucero MD [address] [place] [address] PCP - General Internal Medicine 06/17/17 10/17/21 Mick Vidal MD [address] [place] [address] [phone] PCP - General Internal Medicine 10/18/21 documented as of this encounter
--- OUTSIDE RECORDS SUMMARY | 2024-09-17 01:40 | XMS_ITS | Encounter Summary ---
Author Organization [facility] Address [address] [place] [address] Care Team Providers Care Anesthesiology Crna Name Role Phone Osiel Gann MD Primary Care Provider Unavail able Aditya Lucero MD Primary Care Provider [phone] Mick Vidal MD Primary Care Provider Regina vailable Encounter Details Date Type Department Care Team Description 02/13/2015 Cafe Site Attendant Report Medical Records [address] [place] [address] Georgette Marcano MD Social History Tobacco Use [...] on filedocumented in this encounter Care Teams Anesthesiology Crna Relationship Specialty Start Date End Date Osiel Gann MD PCP - General 03/10/02 06/16/17 Aditya Lucero MD [address] [place], [place] [phone] PCP - General Internal Medicine 06/17/17 10/17/21 Mick Vidal MD [address] [place] [address] 54035 PCP - General Internal Medicine 10/18/21 documented as of this encounter
--- OUTSIDE RECORDS SUMMARY | 2024-09-17 01:40 | XMS_ITS | Encounter Summary ---
Author Organization [facility] Address [address] [place] [address] Care Team Providers Care Sample Dye Mixer Name Role Phone Osiel Gann MD Primary Care Provider Unavail able Aditya Lucero MD Primary Care Provider Mick Vidal MD Primary Care Provider Regina vailable Encounter Details Date Type Department Care Team Description 01/21/2017 Game Developer Report Medical Records [address] [place] [address] 29083 Katarina Mcnair [address] [place] [address] [phone] Social History Tobacco Use Types Packs/Day Years [...] on filedocumented in this encounter Care Teams Sample Dye Mixer Relationship Specialty Start Date End Date Osiel Gann MD PCP - General 03/10/02 06/16/17 Aditya Lucero MD [address] [place] [address] [phone] PCP - General Internal Medicine 06/17/17 10/17/21 Mick Vidal MD [address] [place] [address] [phone] PCP - General Internal Medicine 10/18/21 documented as of this encounter
--- OUTSIDE RECORDS SUMMARY | 2024-09-17 01:40 | XMS_ITS | Encounter Summary ---
Author Organization [facility] Address [address] [place] [address] Care Team Providers Care Box Inspector Name Role Phone Aditya Lucero MD Primary Care Provider [phone] Mick Vidal MD Primary Care Provider Regina vailable Reason for Referral * EXTERNAL (Routine) - Authorized/Booked Specialty Diagnoses / Procedures Referred By Contalma kessler Referred To Contact Physical Therapy Procedures REFERRAL TO PHYSICAL THERAPY Aditya Lucero MD [address] [place] [address] [facility] Referral ID Status Reason Start Date Expiration Date V isits Requested Visits Authorized [id number] Authorized/B ooked 10/16/2021 01/16/2022 1 1 Reason for Visit * Reason Onset Date Comments Chief Orthoptist Feedback 10/16/2021 update rx Physic al therapy Encounter Details Date Type Department Care Team Description 10/16/2021 Telephone Adult Medicine [address] [address] Aditya Lucero MD [address] [place] [phone] Chief Orthoptist Feedback (update rx Physical therapy) Social History Tobacco Use Types Packs/Day Years [...] have Coronavirus / COVID-19? No / Unsure 09/23/2021 2:30 PM EST documented as of this encounter Miscellaneous Notes * Telephone Encounter - Gricelda Lopez - 10/16/2021 11:45 AM EDT Updated order for Physical therapy needed DOI [email or web address] - current I will request a referral to Physical Therapy. Diagnosis: extremity pain Left arm, gait training, s/t cva with right sided weakness Goal of Therapy: Decreased pain, Evaluation for safety, Posture and body mechanics improvement, Provide patient and family education and Strength improvement Treatment Modalities: Evaluate and treat Frequency of Visits: 2-3 times per week Duration of Therapy: 12 weeks Total Number of Visits: 30 visits Payor: Not third-republican related documented in this encounter Plan of Treatment Not on file documented as of this encounter Visit Diagnoses Not on filedocumented in this encounter Care Teams Box Inspector Relationship Specialty Start Date End Date Aditya Lucero MD [address] [place] [phone] PCP - General Internal Medicine 06/17/17 10/17/21 Mick Vidal MD [address] [place] [address] PCP - General Internal Medicine 10/18/21 documented as of this encounter
--- OUTSIDE RECORDS SUMMARY | 2024-09-17 01:40 | XMS_ITS | Encounter Summary ---
Author Organization [facility] Address [address] [place] [address] Care Team Providers Care Clinical Research Scientist Name Role Phone Osiel Gann MD Primary Care Provider Unavail able Aditya Lucero MD Primary Care Provider [phone] Mick Vidal MD Primary Care Provider Regina vailable Encounter Details Date Type Department Care Team Description 01/08/2017 [facility] Medical Records [address] [place] [address] Social History Tobacco Use Types Packs/Day Years [...] on filedocumented in this encounter Care Teams Clinical Research Scientist Relationship Specialty Start Date End Date Osiel Gann MD PCP - General 03/10/02 06/16/17 Aditya Lucero MD [address] [place], [place] [phone] PCP - General Internal Medicine 06/17/17 10/17/21 Mick Vidal MD [address] [place] [address] PCP - General Internal Medicine 10/18/21 documented as of this encounter
--- OUTSIDE RECORDS SUMMARY | 2024-09-17 01:40 | XMS_ITS | Encounter Summary ---
Author Organization [facility] Address [address] [place] [address] Care Team Providers Care Audiovisual Production Specialist Name Role Phone Osiel Gann MD Primary Care Provider Unavail able Aditya Lucero MD Primary Care Provider [phone] Mick Vidal MD Primary Care Provider Regina vailable Reason for Visit * Reason Onset Date Comments VNA Call 04/15/2016 Encounter Details Date Type Department Care Team Description 04/15/2016 Telephone Adult Medicine [facility] [address] [place] [address] Osiel Gann MD VNA Call Social History Tobacco Use Types Packs/Day Years [...] encounter Miscellaneous Notes * Telephone Encounter - Anum Calhoun L.P.N. - 04/15/2016 11:15 AM EDT Requested DME set up ,please sign ,print and fax to [facility] attn:Cynthia at [phone]. * Telephone Encounter - Grace Tony - 04/15/2016 11:01 AM EDT VNA CALL Which VNA office is calling? [facility] Full name of caller: KALI The caller is An: Occupational Therapist Is the caller at the patients home?: YES Reason for call: Requesting a Rx for a right shoulder saddle sling for shoulder subluxation Does caller need an urgent call back? 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
--- OUTSIDE RECORDS SUMMARY | 2024-09-17 01:41 | XMS_ITS | Encounter Summary ---
Author Organization [facility] Address [address] [place] [address] Care Team Providers Care Construction Teacher Name Role Phone Osiel Gann MD Primary Care Provider Unavail able Aditya Lucero MD Primary Care Provider [phone] Mick Vidal MD Primary Care Provider Regina vailable Encounter Details Date Type Department Care Team Description 12/27/2011 [facility] Medical Records [address] [place] [address] Francisco Fine Social History Tobacco Use Types Packs/Day Years [...] on filedocumented in this encounter Care Teams Construction Teacher Relationship Specialty Start Date End Date Osiel Gann MD PCP - General 03/10/02 06/16/17 Aditya Lucero MD [address] [place] [address] [phone] PCP - General Internal Medicine 06/17/17 10/17/21 Mick Vidal MD [address] [place] [phone] PCP - General Internal Medicine 10/18/21 documented as of this encounter
--- OUTSIDE RECORDS SUMMARY | 2024-09-17 01:41 | XMS_ITS | Encounter Summary ---
Author Organization [facility] Address [address] [place] [address] Care Team Providers Care Table Runner Name Role Phone Osiel Gann MD Primary Care Provider Unavail able Aditya Lucero MD Primary Care Provider [phone] Mick Vidal MD Primary Care Provider Regina vailable Reason for Visit * Reason Onset Date Comments radiology 06/08/2015 mri testing. Encounter Details Date Type Department Care Team Description 06/08/2015 Telephone Adult Medicine [facility] [address] [place] [address] Osiel Gann MD radiology (mri testing.) Social History Tobacco Use Types Packs/Day Years [...] encounter Miscellaneous Notes * Telephone Encounter - Jose Torres - 06/08/2015 3:12 PM EST Can you please verify the area of the body you need an mra on? Dr. Andrews placed an order for mra head but under area of body she put to scan the neck. Does she want an mra of the head or neck? Thanks. Jose, Mri Department. documented in this encounter Plan of Treatment Not on file documented as of this encounter Visit Diagnoses Not on filedocumented in this encounter Care Teams Table Runner Relationship Specialty Start Date End Date Osiel Gann MD PCP - General 03/10/02 06/16/17 Aditya Lucero MD [address] [place] [phone] PCP - General Internal Medicine 06/17/17 10/17/21 Mick Vidal MD [address] [place] [address] PCP - General Internal Medicine 10/18/21 documented as of this encounter
--- OUTSIDE RECORDS SUMMARY | 2024-09-17 01:41 | XMS_ITS | Encounter Summary ---
Author Organization [facility] Address [address] [place] [address] Care Team Providers Care Medical Specialist Name Role Phone Aditya Lucero MD Primary Care Provider [phone] Mick Vidal MD Primary Care Provider Regina vailable Encounter Details Date Type Department Care Team Description 05/03/2018 Transfer Records Medical Records [address] [place], [place] [id number] Abstract, Provider Social History Tobacco Use Types [...] on filedocumented in this encounter Care Teams Medical Specialist Relationship Specialty Start Date End Date Aditya Lucero MD [address] [place] [address] [phone] PCP - General Internal Medicine 06/17/17 10/17/21 Mick Vidal MD [address] [place] [phone] PCP - General Internal Medicine 10/18/21 documented as of this encounter
--- OUTSIDE RECORDS SUMMARY | 2024-09-17 01:41 | XMS_ITS | Clinical Summary ---
Author Organization [facility] Address [address] [place] [address] Care Team Providers Care Network Support Analyst Name Role Phone Mick Vidal MD Primary Care Provider [phone] Surgical History Surgery Date Site/Laterality Comments OTHER SURGICAL HISTORY 12/23 PROCEDURE: SCRN MAMMO PROCESS IMAGE BRI; COMMENT: III; sono 04/24 stable, recheck 3 mos; FNA neg STEREOTACTIC BREAST BIOPSY PROCEDURE: STEREOTACTIC BREAST BIOPSY; COMMENT: benign OTHER SURGICAL HISTORY PROCEDURE: LAPS ABLATJ UTERINE FIBROIDS W/INTRAOP US GDNC; COMMENT: Sites FINE NEEDLE ASPIRATION Right PROCEDURE: FINE NDLE ASPRTN W/IMAGING GUIDANCE; COMMENT: 2016 OTHER SURGICAL HISTORY 12/2016 N/A PROCEDURE: CA TOTAL ABDOMINAL HYSTERECT W/WO RMVL TUBE OVARY; COMMENT: Sites. 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 07/07/2006 DX:Tube rculin test reaction Fibroid, uterine 06/17/2007 [place] History of CVA (cerebrovascu lar accident) 11/28/2014 DX:History of CVA (cerebrova scular accident) Thyroid nodule 07/16/2015 DX:Thyroid nodul e Type 2 diabetes mellitus wit h neurological manifestations, controlled (CMS/HCC) 02/02/2017 DX:Type 2 diabetes mellitus with neurological manifestations, 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 Cough DX:Cough Postnasal drip DX:Postnasal dri p Problems with swallowing and mastication DX:Problems with swallowing and mastication Family History Medical History Relation Name Comments Hypertension Father Breast cancer Maternal Grandmother Arthritis Mother hand Diabetes Mother Hypertension Mother Other: fibroid Mother Other: fibroids Sister x 3 Colon cancer Neg Hx Ovarian cancer Neg Hx Relation Name Status Comments Father Maternal Grandmother Mother Sister Social History Tobacco Use Types Packs/Day Years Used Date Smoking Tobacco: Never Smokeless Tobacco: Never Alcohol Use Standard Drinks/Week Comments No 0 (1 standard drink = 0.6 oz pur e alcohol) Comments Unknown Sex and Gender Information Value Date Recorded Sex Assigned at Not on file Legal Sex Female 8:14 AM EST Gender Identity Not on file Sexual Orientation Not on file Obstetrics History Last Filed Vital Signs Vital Sign Reading Time Taken Comments Blood Pressure 119/81 12/12/2021 2:03 PM EDT Pulse 81 12/12/2021 2:03 PM EDT Temperature - - Respiratory Rate - - Oxygen Saturation - - Inhaled Oxygen Concentration - - Weight 80.2 kg (176 lb 12.8 oz) 12/12/2021 2:03 PM EDT Height - - Body Mass Index - - Plan of Treatment Health Maintenance Due Date Last Done Comments Diabetes: Annual GFR (Glomerular Filtration Rate) 1972 Diabetes: Annual Foot Exam 1982 Diabetes: Annual Retina Eye Exam 1982 Hepatitis B Vaccines (1 of 3 - 19+ 3-dose series) 1991 Cervical Cancer Screening: Pap Smear 1993 Pneumococcal Vaccine: 50+ Years (2 of 2 - PCV) 2022 05/06/2017 Zoster Vaccines (1 of 2) 2022 Cholesterol Screening (Lipid Panel) 06/28/2022 Colorectal Cancer Screening: Colonoscopy 06/28/2022 Depression Screening 06/28/2022 HIV Screening 06/28/2022 Hepatitis C Screening 06/28/2022 Social Influencers of Health Screening 06/28/2022 Diabetes: Annual Urine Albumin-Creatinine Ratio (uACR) 07/02/2022 Diabetes: Blood Sugar Control Test (HGBA1C) 07/02/2022 DTaP,Tdap,and Td Vaccines (2 - Td or Tdap) 01/24/2023 01/24/2013 Breast Cancer Screening 09/24/2023 09/24/19 22, 09/17/2020, 08/31/2019, Additional history exists COVID-19 Vaccine ( season) 2024 Influenza Vaccine (#1) 2024 0, 04/21/2018, 05/06/2017, Additional history exists Pneumococcal Vaccine: Pediatrics (0 to 5 Years) and At-Risk Patients (6 to 64 Years) Aged Out 05/06/2017 No longer eligible based on patient's age to complete this topic HIB Vaccines Aged Out No longer eligi ble based on patient's age to complete this topic HPV Vaccines Aged Out No longer eligi ble based on patient's age to complete this topic Hepatitis A Vaccines Aged Out No long er eligible based on patient's age to complete this topic IPV Vaccines Aged Out No longer eligi ble based on patient's age to complete this topic MMR Vaccines Aged Out No longer eligi ble based on patient's age to complete this topic Meningococcal ACWY Vaccine Aged Out N o longer eligible based on patient's age to complete this topic Meningococcal B Vacine Aged Out No lo nger eligible based on patient's age to complete this topic RSV Immunization Patients Under 20 months Aged Out No longer eligible based on patient's age to complete this topic Varicella Vaccines Aged Out No longer eligible based on patient's age to complete this topic Procedures Procedure Name Priority Date/Time Associated Diagnosis Comments SCREENING MAMMOGRAPHY BI 2-VIEW BREAST INC CAD Routine 09/23/2021 3:28 PM EST Encounter for screening mammogram for malignant neoplasm of breast from Last 3 Months or Most Recently Relevant to Health Maintenance Results * SCREENING MAMMOGRAPHY BI 2-VIEW BREAST INC CAD (09/23/2021 3:28 PM EST) Anatomical Region Laterality Modality Radiographic Stephy ging 09/17/2020 10:4 3 AM EST Narrative 09/24/2021 3:13 PM EST This is a summary report. The complete report is available in the patient's medical record. If you cannot access the medical record, please contact the sending organization for a detailed fax or copy. BILATERAL 2D and 3D DIGITAL SCREENING MAMMOGRAM History: Routine screening. ??No current breast complaints. ??Family history of breast cancer in grandmother. ??History of left breast surgery. Comparison: Multiple priors dating back to 04/20/2017 Technique: Bilateral full-field digital 2D and 3D mammography was performed using standard CC and MLO projections CAD was used to evaluate this mammogram. Findings: Density: ?? The breasts are heterogeneously dense which may obscure small masses-C RIGHT: No suspicious masses, groups of microcalcification or areas of architectural distortion identified. Stable typically benign parenchymal asymmetries. ??Stable multiple masses. LEFT: No suspicious masses, groups of microcalcifications or areas of architectural distortion identified. Stable typically benign parenchymal asymmetries. ??Retroareolar postoperative changes and mirian. IMPRESSION: : 1. ??No mammographic evidence of malignancy. BI-RADS Category 2 benign findings Recommendation: Routine annual screening mammography is recommended Procedure Note Levon Francisco MD - 07/08/2022 This is a summary report. The complete report is available in thepatient's medical record. If you cannot access the medical record, pleasecontact the sending organization for a detailed fax or copy. BILATERAL 2D and 3D DIGITAL SCREENING MAMMOGRAM History: Routine screening. No current breast complaints. Family historyof breast cancer in grandmother. History of left breast surgery. Comparison: Multiple priors dating back to 04/20/2017 Technique: Bilateral full-field digital 2D and 3D mammography wasperformed using standard CC and MLO projections CAD was used to evaluate this mammogram. Findings: Density: The breasts are heterogeneously dense which may obscure smallmasses-C RIGHT: No suspicious masses, groups of microcalcification or areas ofarchitectural distortion identified. Stable typically benign parenchymalasymmetries. Stable multiple masses. LEFT: No suspicious masses, groups of microcalcifications or areas ofarchitectural distortion identified. Stable typically benign parenchymalasymmetries. Retroareolar postoperative changes and mirian. IMPRESSION: : 1. No mammographic evidence of malignancy. BI-RADS Category 2 benign findings Recommendation: Routine annual screening mammography is recommended us Elida Matthews MD IMG XR PROCEDURES Final Res ult from Last 3 Months or Most Recently Relevant to Health Maintenance Care Teams Network Support Analyst Relationship Specialty Start Date End Date Mick Vidal MD [address] [place] [address] PCP - General Internal Medicine 10/18/21
--- OUTSIDE RECORDS SUMMARY | 2024-09-17 01:41 | XMS_ITS | Encounter Summary ---
Author Organization [facility] Address [address] [place] [address] Care Team Providers Care Corporate Securities Research Analyst Name Role Phone Aditya Lucero MD Primary Care Provider [phone] Mick Vidal MD Primary Care Provider Regina vailable Reason for Visit * Reason Onset Date Comments Faxed Order 09/30/2018 Encounter Details Date Type Department Care Team Description 09/30/2018 Telephone Adult Medicine [address] [phone] Aditya Lucero MD [address] [place] [address] [phone] Faxed Order Social History Tobacco Use Types [...] encounter Miscellaneous Notes * Telephone Encounter - Stephanie Giles - 09/30/2018 3:23 PM EDT Faxed orders received from [facility]. Please review, sign, date, and fax back to [phone] documented in this encounter Plan of Treatment Not on file documented as of this encounter Visit Diagnoses Not on filedocumented in this encounter Care Teams Corporate Securities Research Analyst Relationship Specialty Start Date End Date Aditya Lucero MD [address] [place] [phone] PCP - General Internal Medicine 06/17/17 10/17/21 Mick Vidal MD [address] [place] [id number] PCP - General Internal Medicine 10/18/21 documented as of this encounter
--- OUTSIDE RECORDS SUMMARY | 2024-09-17 01:41 | XMS_ITS | Encounter Summary ---
Author Organization [facility] Address [address] [place] [address] Care Team Providers Care Computer Tester Name Role Phone Aditya Lucero MD Primary Care Provider [phone] Mick Vidal MD Primary Care Provider Regina vailable Encounter Details Date Type Department Care Team Description 05/12/2019 Shot Peening Operator Report Medical Records [address] [place] [id number] Claudio Lorenzo Social History Tobacco Use Types [...] on filedocumented in this encounter Care Teams Computer Tester Relationship Specialty Start Date End Date Aditya Lucero MD [address] [place] [address] [phone] PCP - General Internal Medicine 06/17/17 10/17/21 Mick Vidal MD [address] [place] [phone] PCP - General Internal Medicine 10/18/21 documented as of this encounter
--- OUTSIDE RECORDS SUMMARY | 2024-09-17 01:41 | XMS_ITS | Encounter Summary ---
Author Organization [facility] Address [address] [place] [address] Care Team Providers Care Director Group Sales Name Role Phone Osiel Gann MD Primary Care Provider Unavail able Aditya Lucero MD Primary Care Provider [phone] Mick Vidal MD Primary Care Provider Regina vailable Encounter Details Date Type Department Care Team Description 09/19/2016 Ethernet Network Architect Report Medical Records [address] [place] [address] Grace Raines PA-C Social History Tobacco Use Types Packs/Day Years [...] on filedocumented in this encounter Care Teams Director Group Sales Relationship Specialty Start Date End Date Osiel Gann MD PCP - General 03/10/02 06/16/17 Aditya Lucero MD [address] [place], [place] [phone] PCP - General Internal Medicine 06/17/17 10/17/21 Mick Vidal MD [address] [place] [id number] PCP - General Internal Medicine 10/18/21 documented as of this encounter
--- OUTSIDE RECORDS SUMMARY | 2024-09-17 01:41 | XMS_ITS | Encounter Summary ---
Author Organization [facility] Address [address] [place] [address] Care Team Providers Care Web Merchandiser Name Role Phone Osiel Gann MD Primary Care Provider Unavail able Aditya Lucero MD Primary Care Provider [phone] Mick Vidal MD Primary Care Provider Regina vailable Encounter Details Date Type Department Care Team Description 03/25/2014 Orders Only Adult Medicine - [address] [address] Osiel Gann MD Hematuria (Primary Dx) Social History Tobacco Use Types Packs/Day Years [...] on file documented as of this encounter Results * (ABNORMAL) URINALYSIS, COMPLETE (05/05/2014 4:56 PM EDT) SPECIFIC GRAVITY, URINE 1.025 1.005 - 1.030 05/05/2014 5:11 PM EDT [facility] PH, URINE 6.5 5 - 8 05/05/2014 5:11 PM EDT [facility] PROTEIN, URINE NEGATIVE <=TRACE mg/dL 05/05/2014 5:11 PM EDT [facility] GLUCOSE, URINE (UA) NEGATIVE NEGATIVE mg/dL 05/05/2014 5:11 PM EDT [facility] KETONE, URINE NEGATIVE NEGATIVE mg/dL 05/05/2014 5:11 PM EDT [facility] BILIRUBIN URINE NEGATIVE NEGATIVE 05/05/2014 5:11 PM EDT [facility] UROBILINOGEN, URINE 0.2 0.2 - 1.0 E.U./dL 05/05/2014 5:11 PM EDT [facility] BLOOD, URINE MODERATE(A) NEGATIVE 05/05/2014 5:11 PM EDT [facility] NITRITE,URINE NEGATIVE NEGATIVE 05/05/2014 5:11 PM EDT [facility] LEUKOCYTE ESTERASE, URINE NEGATIVE NEGATIVE 05/05/2014 5:11 PM EDT [facility] RBC-Urine 6-8(A) 0 - 4 /hpf 05/05/2014 5:31 PM EDT [facility] WBC, URINE 0-1 0 - 4 /hpf 05/05/2014 5:31 PM EDT [facility] EPITHELIAL CELLS URINE 4-5 0 - 60 05/05/2014 5:31 PM EDT [facility] 05/05/2014 4:56 PM EDT 05/05/2014 4:56 PM EDT Osiel Gann MD LAB Performing Organization Address [facility] Co de Phone Number [address] * URINE, CULTURE (05/05/2014 4:56 PM EDT) Urine (Urine) 05/05/2014 4:5 6 PM EDT 05/05/2014 4:56 PM EDT Narrative [facility] - 05/07/2014 2:21 PM EDT No growth Osiel Gann MD LAB Performing Organization Address [facility] Co de Phone Number [facility] documented in this encounter Visit Diagnoses Diagnosis Hematuria- Primary Hematuria, unspecified documented in this encounter Care Teams Web Merchandiser Relationship Specialty Start Date End Date Osiel Gann MD PCP - General 03/10/02 06/16/17 Aditya Lucero MD [address] [place] [id number] PCP - General Internal Medicine 06/17/17 10/17/21 Mick Vidal MD [address] [place] [address] [place] [address] PCP - General Internal Medicine 10/18/21 documented as of this encounter
--- OUTSIDE RECORDS SUMMARY | 2024-09-17 01:41 | XMS_ITS | Encounter Summary ---
Author Organization [facility] Address [address] [place] [address] Care Team Providers Care Staff Accountant Name Role Phone Osiel Gann MD Primary Care Provider Unavail able Aditya Lucero MD Primary Care Provider [phone] Mick Vidal MD Primary Care Provider Regina vailable Encounter Details Date Type Department Care Team Description 12/18/2014 [facility] Medical Records [address] Social History Tobacco Use Types Packs/Day Years [...] on filedocumented in this encounter Care Teams Staff Accountant Relationship Specialty Start Date End Date Osiel Gann MD PCP - General 03/10/02 06/16/17 Aditya Lucero MD [address] [place] [address] [phone] PCP - General Internal Medicine 06/17/17 10/17/21 Mick Vidal MD [address] [place] [id number] PCP - General Internal Medicine 10/18/21 documented as of this encounter
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
--- OUTSIDE RECORDS SUMMARY | 2024-09-17 01:41 | XMS_ITS | Encounter Summary ---
Author Organization [facility] Address [address] [place] [address] Care Team Providers Care Vocational Rehabilitation Supervisor Name Role Phone Aditya Lucero MD Primary Care Provider [phone] Mick Vidal MD Primary Care Provider Regina vailable Reason for Visit * Reason Comments E-prescribe Rx Request Encounter Details Date Type Department Care Team Description 10/11/2018 Refill Adult Medicine [address] [id number] Lars Merida NP E-prescribe Rx Request Social History Tobacco Use [...] Telephone Encounter - Shelia Liu M.A. - 10/12/2018 8:14 AM EDT Lab Results Component Value Date CHOL 146 06/21/2018 LDL 96 06/21/2018 HDL 39 06/21/2018 TRIG 57 06/21/2018 SGOT 16 05/22/2017 SGPT 18 05/22/2017 ] Last ov with Loic 06/21/18 * Telephone Encounter - Roseanna Beach - 10/11/2018 11:24 AM EDT Patient would like script to be: E-PRESCRIBED/FAXED TO PHARMACY WHEN WAS THE PATIENT'S LAST APPOINTMENT IN ADULT MEDICINE? 08/09/18 WHEN WAS THE LAST TIME THE PATIENT SAW THEIR PCP? 04/21/18 Does patient have an upcoming appointment? Will call to book (THE MEDICATION REQUESTED IS ON THE MED LIST ABOVE) All of the medications requested were on the CURRENT MEDS list Did you check the Pharmacy information above?: YES Patient wants: 30 -day supply Is this a mail order [...] on filedocumented in this encounter Care Teams Vocational Rehabilitation Supervisor Relationship Specialty Start Date End Date Aditya Lucero MD [address] [place] [address] PCP - General Internal Medicine 06/17/17 10/17/21 Mick Vidal MD [address] [place] [address] PCP - General Internal Medicine 10/18/21 documented as of this encounter
--- OUTSIDE RECORDS SUMMARY | 2024-09-17 01:41 | XMS_ITS | Encounter Summary ---
Author Organization [facility] Address [address] [place] [address] Care Team Providers Care Strategic Buyer Name Role Phone Osiel Gann MD Primary Care Provider Unavail able Aditya Lucero MD Primary Care Provider [phone] Mick Vidal MD Primary Care Provider Regina vailable Encounter Details Date Type Department Care Team Description 02/14/2005 Orders Only OBGYN - [facility] [address] [address] Jey Klein MD URINARY FREQUENCY (Primary Dx) Social History Tobacco Use Types Packs/Day Years Used Date Smoking Tobacco: Never Assessed Sex Assigned at Date Recorded Not on file Job Start Date Occupation Industry Not on file Not on file Not on file documented as of this encounter Plan of Treatment Not on file documented as of this encounter Procedures Procedure Name Priority Date/Time Associated Diagnosis Comments URINE, CULTURE Routine 02/14/2005 1:41 PM EDT Urinary Frequency documented in this encounter Results * URINE, CULTURE (02/14/2005 1:41 PM EDT) URINE CULTURE <10,000 CFU/mL GRAM POSITIVE COCCI [facility] 02/14/2005 1:41 PM EDT 02/14/2005 1:42 PM EDT Jey Klein MD LAB [facility] documented in this encounter Visit Diagnoses Diagnosis Urinary frequency- Primary documented in this encounter Care Teams Strategic Buyer Relationship Specialty Start Date End Date Osiel Gann MD PCP - General 03/10/02 06/16/17 Aditya Lucero MD [address] [place] [address] PCP - General Internal Medicine 06/17/17 10/17/21 Mick Vidal MD [address] [place] [address] PCP - General Internal Medicine 10/18/21 documented as of this encounter
--- OUTSIDE RECORDS SUMMARY | 2024-09-17 01:41 | XMS_ITS | Encounter Summary ---
Author Organization [facility] Address [address] [place] [address] Care Team Providers Care Psychology Instructor Name Role Phone Aditya Lucero MD Primary Care Provider [phone] Mick Vidal MD Primary Care Provider Regina vailable Reason for Visit * Reason Comments E-prescribe Rx Request Encounter Details Date Type Department Care Team Description 03/10/2019 Refill Adult Medicine [address] [id number] Lars Merida NP E-prescribe Rx Request Social [...] encounter Miscellaneous Notes * Telephone Encounter - Amanda Russell M.A. - 03/10/2019 9:19 AM EDT Lab Results Component Value Date CHOL 146 06/21/2018 LDL 96 06/21/2018 HDL 39 06/21/2018 TRIG 57 06/21/2018 SGOT 16 05/22/2017 SGPT 18 05/22/2017 * Telephone Encounter - Stephanie Giles - 03/10/2019 8:39 AM EDT Patient would like script to be: E-PRESCRIBED/FAXED TO PHARMACY WHEN WAS THE PATIENT'S LAST APPOINTMENT IN ADULT MEDICINE? 08/09/18 WHEN WAS THE LAST TIME THE PATIENT SAW THEIR PCP? 04/21/18 Does patient have an upcoming appointment? Yes 04/26/19 (THE MEDICATION REQUESTED IS ON THE MED [...] on filedocumented in this encounter Care Teams Psychology Instructor Relationship Specialty Start Date End Date Aditya Lucero MD [address] [place] [address] PCP - General Internal Medicine 06/17/17 10/17/21 Mick Vidal MD [address] [place] [address] PCP - General Internal Medicine 10/18/21 documented as of this encounter
--- OUTSIDE RECORDS SUMMARY | 2024-09-17 01:41 | XMS_ITS | Encounter Summary ---
Author Organization [facility] Address [address] [place] [address] Care Team Providers Care Resolution Analyst Name Role Phone Osiel Gann MD Primary Care Provider Unavail able Aditya Lucero MD Primary Care Provider [phone] Mick Vidal MD Primary Care Provider Regina vailable Reason for Visit * Reason Onset Date Comments Faxed Order 07/08/2016 [facility] Encounter Details Date Type Department Care Team Description 07/08/2016 Telephone Adult Medicine [address] [address] Osiel Gann MD Faxed Order ([facility]) Social History Tobacco Use Types Packs/Day Years [...] Miscellaneous Notes * Telephone Encounter - Amanda Alfredo - 07/08/2016 10:19 AM EST [facility] faxed a request for doctor's signature for medicare for to review, sign, date and fax back to [phone] Placed in 's bin documented in this encounter Plan of Treatment Not on file documented as of this encounter Visit Diagnoses Not on filedocumented in this encounter Care Teams Resolution Analyst Relationship Specialty Start Date End Date Osiel Gann MD PCP - General 03/10/02 06/16/17 Aditya Lucero MD [address] [place] [address] PCP - General Internal Medicine 06/17/17 10/17/21 Mick Vidal MD [address] [place] [address] PCP - General Internal Medicine 10/18/21 documented as of this encounter
--- OUTSIDE RECORDS SUMMARY | 2024-09-17 01:41 | XMS_ITS | Encounter Summary ---
Author Organization [facility] Address [address] [place] [address] Care Team Providers Care Tape Coater Name Role Phone Osiel Gann MD Primary Care Provider Unavail able Aditya Lucero MD Primary Care Provider [phone] Mick Vidal MD Primary Care Provider Regina vailable Encounter Details Date Type Department Care Team Description 07/03/2016 Supervisor Sound Technician Report Medical Records [address] [place] [address] Claudio Mott MD Social History Tobacco Use Types Packs/Day [...] filedocumented in this encounter Care Teams Tape Coater Relationship Specialty Start Date End Date Osiel Gann MD PCP - General 03/10/02 06/16/17 Aditya Lucero MD [address] [place] [address] [phone] PCP - General Internal Medicine 06/17/17 10/17/21 Mick Vidal MD [address] [place] [address] PCP - General Internal Medicine 10/18/21 documented as of this encounter
--- OUTSIDE RECORDS SUMMARY | 2024-09-17 01:41 | XMS_ITS | Encounter Summary ---
Author Organization [facility] Address [address] [place] [address] Care Team Providers Care Cofferdam Construction Supervisor Name Role Phone Osiel Gann MD Primary Care Provider Unavail able Aditya Lucero MD Primary Care Provider [phone] Mick Vidal MD Primary Care Provider Regina vailable Encounter Details Date Type Department Care Team Description 06/19/2015 Process Pumper Report Medical Records [address] [place] [address] [phone] Social History Tobacco Use Types Packs/Day Years [...] on filedocumented in this encounter Care Teams Cofferdam Construction Supervisor Relationship Specialty Start Date End Date Osiel Gann MD PCP - General 03/10/02 06/16/17 Aditya Lucero MD [address] [place] [address] [phone] PCP - General Internal Medicine 06/17/17 10/17/21 Mick Vidal MD [address] [place] [address] PCP - General Internal Medicine 10/18/21 documented as of this encounter
--- OUTSIDE RECORDS SUMMARY | 2024-09-17 01:41 | XMS_ITS | Encounter Summary ---
Author Organization [facility] Address [address] [place] [address] Care Team Providers Care Heel Attacher Name Role Phone Osiel Gann MD Primary Care Provider Unavail able Aditya Lucero MD Primary Care Provider [phone] Mick Vidal MD Primary Care Provider Regina vailable Encounter Details Date Type Department Care Team Description 07/06/2015 Lpta Report Medical Records [address] [place] [address] [phone] Social History Tobacco Use Types Packs/Day Years [...] on filedocumented in this encounter Care Teams Heel Attacher Relationship Specialty Start Date End Date Osiel Gann MD PCP - General 03/10/02 06/16/17 Aditya Lucero MD [address] [place] [address] [phone] PCP - General Internal Medicine 06/17/17 10/17/21 Mick Vidal MD [address] [place] [address] PCP - General Internal Medicine 10/18/21 documented as of this encounter
--- OUTSIDE RECORDS SUMMARY | 2024-09-17 01:41 | XMS_ITS | Encounter Summary ---
Author Organization [facility] Address [address] [place] [address] Care Team Providers Care Mold Maker Name Role Phone Osiel Gann MD Primary Care Provider Unavail able Aditya Lucero MD Primary Care Provider [phone] Mick Vidal MD Primary Care Provider Regina vailable Encounter Details Date Type Department Care Team Description 07/23/2016 Courtesy Car Driver Report Medical Records [address] [place] [address] [id number] Social History Tobacco Use Types Packs/Day Years [...] filedocumented in this encounter Care Teams Mold Maker Relationship Specialty Start Date End Date Osiel Gann MD PCP - General 03/10/02 06/16/17 Aditya Lucero MD [address] [place] [address] [phone] PCP - General Internal Medicine 06/17/17 10/17/21 Mick Vidal MD [address] [place] [address] PCP - General Internal Medicine 10/18/21 documented as of this encounter
--- OUTSIDE RECORDS SUMMARY | 2024-09-17 01:41 | XMS_ITS | Encounter Summary ---
Author Organization [facility] Address [address] [place] [address] Care Team Providers Care Program Facilitator Name Role Phone Osiel Gann MD Primary Care Provider Unavail able Aditya Lucero MD Primary Care Provider [phone] Mick Vidal MD Primary Care Provider Regina vailable Reason for Visit * Reason Onset Date Comments Faxed Order 06/07/2015 [facility] Jesus Manuel ospiar Encounter Details Date Type Department Care Team Description 06/07/2015 Telephone Adult Medicine [facility] [address] [place] [address] Osiel Gann MD Faxed Order ([facility]) Social History Tobacco Use Types Packs/Day Years [...] encounter Miscellaneous Notes * Telephone Encounter - Janny Rodriguez - 06/07/2015 1:50 PM EST Placed in doctors bin on B side: [facility] Please review, sign and fax when completed [phone] documented in this encounter Plan of Treatment Not on file documented as of this encounter Visit Diagnoses Not on filedocumented in this encounter Care Teams Program Facilitator Relationship Specialty Start Date End Date Osiel Gann MD PCP - General 03/10/02 06/16/17 Aditya Lucero MD [address] [place] [address] PCP - General Internal Medicine 06/17/17 10/17/21 Mick Vidal MD [address] [place] [address] PCP - General Internal Medicine 10/18/21 documented as of this encounter
--- OUTSIDE RECORDS SUMMARY | 2024-09-17 01:41 | XMS_ITS | Encounter Summary ---
Author Organization [facility] Address [address] [place] [address] Care Team Providers Care Station Master Name Role Phone Osiel Gann MD Primary Care Provider Unavail able Aditya Lucero MD Primary Care Provider [phone] Mick Vidal MD Primary Care Provider Regina vailable Reason for Visit * Reason Onset Date Comments REFERRAL 10/25/2014 Encounter Details Date Type Department Care Team Description 10/25/2014 Telephone Urology [address] [place] [address] [phone] Alcon Walsh MD REFERRAL Social History Tobacco Use Types Packs/Day Years [...] encounter Miscellaneous Notes * Telephone Encounter - Consuelo Yadav - 10/25/2014 3:18 PM EDT This is just an FYI... Patient was referred to the Urology Department on 05/11/2014 for hematuria (microscopic) . She wasscheduled to be seen on 10/16/14 but the appointment was cancelled due to the provider being out of the office. Since then, patient has failed to return our phone calls to reschedule.Therefore, we will be removing the referral from our report. Thank you. documented in this encounter Plan of Treatment Not on file documented as of this encounter Visit Diagnoses Not on filedocumented in this encounter Care Teams Station Master Relationship Specialty Start Date End Date Osiel Gann MD PCP - General 03/10/02 06/16/17 Aditya Lucero MD [address] [place] [address] PCP - General Internal Medicine 06/17/17 10/17/21 Mick Vidal MD [address] [place] [address] PCP - General Internal Medicine 10/18/21 documented as of this encounter
--- OUTSIDE RECORDS SUMMARY | 2024-09-17 01:41 | XMS_ITS | Encounter Summary ---
Author Organization [facility] Address [address] [place] [address] Care Team Providers Care Linseed Oil Temperer Name Role Phone Osiel Gann MD Primary Care Provider Unavail able Adiyta Lucero MD Primary Care Provider [phone] Mick Vidal MD Primary Care Provider Regina vailable Reason for Visit * Reason Onset Date Comments Anemia 11/22/2014 Encounter Details Date Type Department Care Team Description 11/22/2014 Telephone Adult Medicine [facility] [address] [place] [address] Osiel Gann MD Anemia Social History Tobacco Use Types Packs/Day Years [...] encounter Miscellaneous Notes * Telephone Encounter - Hina Simmons - 11/22/2014 4:36 PM EDT FYI for Dr. Gann Patient no showed her appointment today with Dr. Mckeon regarding anemia. Did not want to reschedule, asked if she would follow up with pcp. Patient stated she would do that. documented in this encounter Plan of Treatment Not on file documented as of this encounter Visit Diagnoses Not on filedocumented in this encounter Care Teams Linseed Oil Temperer Relationship Specialty Start Date End Date Osiel Gann MD PCP - General 03/10/02 06/16/17 Aditya Lucero MD [address] [place] [address] PCP - General Internal Medicine 06/17/17 10/17/21 Mick Vidal MD [address] [place] [address] PCP - General Internal Medicine 10/18/21 documented as of this encounter
--- OUTSIDE RECORDS SUMMARY | 2024-09-17 01:41 | XMS_ITS | Encounter Summary ---
Author Organization [facility] Address [address] [place] [address] Care Team Providers Care Sustainability Project Manager Name Role Phone Osiel Gann MD Primary Care Provider Unavail able Aditya Lucero MD Primary Care Provider [phone] Mick Vidal MD Primary Care Provider Regina vailable Encounter Details Date Type Department Care Team Description 02/07/2005 Orders Only OBGYN - [facility] [address] [address] Jey Klein MD SCREENING EXAMINATION FOR VENEREAL DISEASE; PAIN IN JOINT INVOLVING PELVIC REGION AND THIGH Social History Tobacco Use Types Packs/Day Years Used Date Smoking Tobacco: Never Assessed Sex Assigned at Date Recorded Not on file Job Start Date Occupation Industry Not on file Not on file Not on file documented as of this encounter Plan of Treatment Not on file documented as of this encounter Procedures Procedure Name Priority Date/Time Associated Diagnosis Comments GONORRHEA DNA PROBE Routine 02/07/2005 4 :51 PM EDT Screening Examination For Venereal Disease Pain In Joint Involving Pelvic Region And Thigh CHLAMYDIA DNA PROBE Routine 02/07/2005 4 :51 PM EDT Screening Examination For Venereal Disease Pain In Joint Involving Pelvic Region And Thigh documented in this encounter Results * GONORRHEA DNA PROBE (02/07/2005 4:51 PM EDT) GC-DNA SWAB NEGATIVE NEGATIVE [facility] 02/07/2005 4:51 PM EDT 02/07/2005 4:53 PM EDT Jey Klein MD LAB [facility] [facility] * CHLAMYDIA DNA PROBE (02/07/2005 4:51 PM EDT) CHLAMYDIA-DNA SWAB NEGATIVE NEGATIVE [facility] 02/07/2005 4:51 PM EDT 02/07/2005 4:53 PM EDT Jey Klein MD LAB Performing Organization Address City/[facility] Co de Phone Number [facility] [employer] documented in this encounter Visit Diagnoses Diagnosis Screening examination for venereal disease Pain in joint, pelvic region and thigh documented in this encounter Care Teams Sustainability Project Manager Relationship Specialty Start Date End Date Osiel Gann MD PCP - General 03/10/02 06/16/17 Aditya Lucero MD [address] [place] [address] PCP - General Internal Medicine 06/17/17 10/17/21 Mick Vidal MD [address] [place] [address] PCP - General Internal Medicine 10/18/21 documented as of this encounter
--- OUTSIDE RECORDS SUMMARY | 2024-09-17 01:41 | XMS_ITS | Encounter Summary ---
Author Organization [facility] Address [address] [place] [address] Care Team Providers Care Incident Response Engineer Name Role Phone Osiel Gann MD Primary Care Provider Unavail able Aditya Lucero MD Primary Care Provider [phone] Mick Vidal MD Primary Care Provider Regina vailable Reason for Visit * Reason Onset Date Comments Orders Call 05/06/2012 Encounter Details Date Type Department Care Team Description 05/06/2012 Telephone Adult Medicine [facility] [address] [place] [address] Osiel Gann MD Orders Call Social History Tobacco Use Types Packs/Day [...] encounter Miscellaneous Notes * Telephone Encounter - Vicky Boateng - 05/06/2012 1:46 PM EDT Caller requesting call back from provider: Is the caller the patient? YES If caller is not the patient, what is the callers name? N/A Callers relationship to patient? N/A If person calling is not the patient themselves, is there a verbal release in FYI or permanent comments for this person: NO Reason for call back: PT CALLED [facility] TO SCHEDULE FINE NEEDLE ASPIRATION OF THYROID AND WAS TOLD TO CALL DR GANN TO HAVE HIM SEND A NEW ORDER. Caller offered to speak with the nurse for assistance: YES Response: Patient offered to speak with nurse for assistance and patient agreed. Message forwarded to nurse. documented in this encounter Plan of Treatment Not on file documented as of this encounter Results * FINE NDLE ASPRTN W/IMAGING GUIDANCE (05/20/2012 9:25 AM EDT) Addenda Addendum by Denis Hernandez MD on 05/21/2012 3:45 PM EDT Addendum: Cytology from all 4 nodules shows benign follicular cells and colloid. All 4 specimens are negative for malignant cells. Cell block is pending. Impressions Denis Hernandez MD - 05/20/2012 9:36 AM EDT : Biopsy of four thyroid nodules done without incident. Narrative Denis Hernandez MD - 05/20/2012 9:36 AM EDT ULTRASOUND GUIDED FINE NEEDLE THYROID BIOPSY HISTORY: Multiple thyroid nodules documented on ultrasound. Biopsy of the 4 largest nodules (2 in each lobe) requested. COMMENT: Informed consent was obtained. Using sterile technique and continuous ultrasound guidance, the nodule in the mid to superior right lobe was biopsied with two 27-gauge needles. Because of the number of nodules to be biopsied, I elected to do two biopsies of each rather than the usual three. Using the same technique, the nodule in the right interpolar area, the nodule in the mid to inferior left lobe and the nodule in the left lower pole were biopsied. Needle position for all eight biopsies was satisfactory. The specimens appeared to be satisfactory. There was no evidence of complications. I asked the patient to call me if she develops pain or swelling at the biopsy sites. Procedure Note Denis Hernandez MD - 05/21/2012 ULTRASOUND GUIDED FINE NEEDLE THYROID BIOPSY HISTORY: Multiple thyroid nodules documented on ultrasound. Biopsy of the4 largest nodules (2 in each lobe) requested. COMMENT: Informed consent was obtained. Using sterile technique andcontinuous ultrasound guidance, the nodule in the mid to superior rightlobe was biopsied with two 27-gauge needles. Because of the number ofnodules to be biopsied, I elected to do two biopsies of each rather thanthe usual three. Using the same technique, the nodule in the rightinterpolar area, the nodule in the mid to inferior left lobe and thenodule in the left lower pole were biopsied. Needle position for all eightbiopsies was satisfactory. The specimens appeared to be satisfactory.There was no evidence of complications. I asked the patient to call me if she develops pain or swelling at thebiopsy sites. IMPRESSION: Biopsy of four thyroid nodules done without incident. Osiel Gann MD ULTRASOUND documented in this encounter Visit Diagnoses Diagnosis Goiter- Primary Goiter, unspecified Goiter Goiter, unspecified documented in this encounter Care Teams Incident Response Engineer Relationship Specialty Start Date End Date Osiel Gann MD PCP - General 03/10/02 06/16/17 Aditya Lucero MD [address] [place] [address] PCP - General Internal Medicine 06/17/17 10/17/21 Mick Vidal MD [address] [place] [address] PCP - General Internal Medicine 10/18/21 documented as of this encounter
--- OUTSIDE RECORDS SUMMARY | 2024-09-17 01:41 | XMS_ITS | Encounter Summary ---
Author Organization [facility] Address [address] [place] [address] Care Team Providers Care Senior Engineering Technician Name Role Phone Aditya Lucero MD Primary Care Provider [phone] Mick Vidal MD Primary Care Provider Regina vailable Encounter Details Date Type Department Care Team Description 10/01/2018 Orders Only Adult Medicine [address] [phone] Abbi Kauffamn MD [address] [place] [address] [phone] Thyroid nodule Social History Tobacco Use Types Packs/Day Years [...] Procedure Name Priority Date/Time Associated Diagnosis Comments SONO GUIDE NEEDLE BIOPSY Routine 08/27/2018 Thyroid nodule documented in this encounter Results * SONO GUIDE NEEDLE BIOPSY (08/27/2018) Abbi Kauffman MD ULTRASOUND documented in this encounter Visit Diagnoses Diagnosis Thyroid nodule Nontoxic uninodular goiter documented in this encounter Care Teams Senior Engineering Technician Relationship Specialty Start Date End Date Aditya Lucero MD [address] [place] [phone] PCP - General Internal Medicine 06/17/17 10/17/21 Mick Vidal MD [address] [place] [phone] PCP - General Internal Medicine 10/18/21 documented as of this encounter
--- OUTSIDE RECORDS SUMMARY | 2024-09-17 01:41 | XMS_ITS | Encounter Summary ---
Author Organization [facility] Address [address] [place] [address] Care Team Providers Care Pellet Press Operator Name Role Phone Osiel Gann MD Primary Care Provider Unavail able Aditya Lucero MD Primary Care Provider [phone] Mick Vidal MD Primary Care Provider Regina vailable Encounter Details Date Type Department Care Team Description 06/20/2015 Academic Vice President Report Medical Records [address] [place] [address] Georgette Marcano MD Social History Tobacco Use [...] on filedocumented in this encounter Care Teams Pellet Press Operator Relationship Specialty Start Date End Date Osiel Gann MD PCP - General 03/10/02 06/16/17 Aditya Lucero MD [address] [place], [place] [phone] PCP - General Internal Medicine 06/17/17 10/17/21 Mick Vidal MD [address] [address] PCP - General Internal Medicine 10/18/21 documented as of this encounter
--- OUTSIDE RECORDS SUMMARY | 2024-09-17 01:41 | XMS_ITS | Encounter Summary ---
Author Organization [facility] Address [address] [place] [address] Care Team Providers Care Box Loader Name Role Phone Osiel Gann MD Primary Care Provider Unavail able Aditya Lucero MD Primary Care Provider [phone] Mick Vidal MD Primary Care Provider Regina vailable Reason for Referral * EXTERNAL (Routine) - Authorized/Booked Specialty Diagnoses / Procedures Referred By Contact Referred To Contact Otolaryngology / EarNoseThroat Procedures REFERRAL TO EAR, NOSE & THROAT Osiel Gann MD [address] [place] [address] [facility] [address] [place] [address] [address] [place] [address] Referral ID Status Reason Start Date Expiration Date V isits Requested Visits Authorized SEE NOTE Authorized/B ooked 07/22/2016 10/22/2016 1 1 Reason for Visit * Reason Onset Date Comments Sludge Filtration Operator Feedback 07/22/2016 ENT Encounter Details Date Type Department Care Team Description 07/22/2016 Telephone Adult Medicine B - [address] [id number] Osiel Gann MD Sludge Filtration Operator Feedback (ENT) Social History Tobacco Use Types Packs/Day Years [...] encounter Miscellaneous Notes * Telephone Encounter - Viridiana Mcnair PA-C - 07/22/2016 12:15 PM EST Referral signed. * Telephone Encounter - Ibis Limon - 07/22/2016 11:41 AM EST Viridiana, I called several oral surgeons that accept patients insurance, and both said to refer to ENT I have pended a new order if you agree Thank you ibis documented in this encounter Plan of Treatment Not on file documented as of this encounter Visit Diagnoses Not on filedocumented in this encounter Care Teams Box Loader Relationship Specialty Start Date End Date Osiel Gann MD PCP - General 03/10/02 06/16/17 Aditya Lucero MD [address] [place] [id number] PCP - General Internal Medicine 06/17/17 10/17/21 Mick Vidal MD [address] [place] [id number] PCP - General Internal Medicine 10/18/21 documented as of this encounter
--- OUTSIDE RECORDS SUMMARY | 2024-09-17 01:41 | XMS_ITS | Encounter Summary ---
Author Organization [facility] Address [address] [place] [address] Care Team Providers Care Nurse Transplant Name Role Phone Osiel Gann MD Primary Care Provider Unavail able Aditya Lucero MD Primary Care Provider [phone] Mick Vidal MD Primary Care Provider Regina vailable Encounter Details Date Type Department Care Team Description 08/23/2013 [facility] Medical Records [address] [place] [address] Sites, Radha Amaral MD Social History Tobacco [...] on filedocumented in this encounter Care Teams Nurse Transplant Relationship Specialty Start Date End Date Osiel Gann MD PCP - General 03/10/02 06/16/17 Aditya Lucero MD [address] [place] [address] [id number] PCP - General Internal Medicine 06/17/17 10/17/21 Mick Vidal MD [address] [place] [phone] PCP - General Internal Medicine 10/18/21 documented as of this encounter
--- OUTSIDE RECORDS SUMMARY | 2024-09-17 01:41 | XMS_ITS | Encounter Summary ---
Author Organization [facility] Address [address] [place] [address] Care Team Providers Care Finance Lead Name Role Phone Osiel Gann MD Primary Care Provider Unavail able Aditya Lucero MD Primary Care Provider [phone] Mick Vidal MD Primary Care Provider Regina vailable Encounter Details Date Type Department Care Team Description 07/23/2015 Transfer Records Medical Records [address] [place] [id number] [id number] Social History Tobacco Use Types Packs/Day Years [...] on filedocumented in this encounter Care Teams Finance Lead Relationship Specialty Start Date End Date Osiel Gann MD PCP - General 03/10/02 06/16/17 Aditya Lucero MD [address] [place] [address] [id number] PCP - General Internal Medicine 06/17/17 10/17/21 Mick Vidal MD [address] [place] [id number] PCP - General Internal Medicine 10/18/21 documented as of this encounter
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
--- NOTE | 2024-09-17 01:42 | ED_ITS ---
HPI - Chest Pain General Chief Complaint: Chest Pain Stated Complaint: CHEST PAIN/ WEAKNESS Time Seen by Provider: 09/17/24 01:38 Source: patient Mode of arrival: EMS Limitations: no limitations History of Present Illness ED Provider: HPI narrative: Patient is 54 years old with history of hypertension hypercholesterolemia no known coronary artery disease comes here for sharp pain in the left side of the chest since 21:00 while at rest pain increases on palpation and movement no shortness a breath no radiation of the pain Related Data Home Medications ?Medication ?Instructions ?Recorded ?Confirmed aspirin 325 mg tablet,delayed 325 mg PO DAILY 11/27/21 08/08/24 release (Aspir-Siri) multivitamin (One-A-Day Essential 1 tab PO DAILY 11/27/21 08/08/24 tablet) Previous Rx's ?Medication ?Instructions ?Recorded blood-glucose meter (Accu-Chek #1 ea 01/23/22 Cindy Plus Meter) lamotrigine 150 mg tablet 150 mg PO BID 90 days #180 tabs 09/03/22 levetiracetam 1,000 mg tablet 1,000 mg PO BID #180 tabs 10/06/22 flash glucose scanning reader #1 ea 05/06/23 (FreeStyle Jolene 2 [place]) flash glucose sensor (FreeStyle #1 ea 05/06/23 Jolene 2 Sensor kit) blood-glucose meter (FreeStyle #1 ea 03/30/24 Lite Meter kit) lancets 28 gauge (FreeStyle #100 ea 03/30/24 Lancets) pioglitazone 15 mg tablet 15 mg PO DAILY #90 tabs 05/19/24 lidocaine 5 % topical patch 1 patch topical DAILY #30 ea 05/31/24 atorvastatin 40 mg tablet 40 mg PO BEDTIME 90 days #90 tabs 08/09/24 lisinopril 2.5 mg tablet 2.5 mg PO DAILY 90 days #90 tabs 08/09/24 FreeStyle Lite Strips (blood sugar #100 ea 08/17/24 diagnostic) Ozempic 0.25 mg or 0.5 mg (2 mg/3 0.5 mg (0.736 mL) subcut QWEEK #9 08/24/24 mL) subcutaneous pen injector mL (semaglutide) pantoprazole 40 mg tablet,delayed 40 mg PO DAILY #90 tabs 08/29/24 release polyethylene glycol 3350 17 17 g PO DAILY #850 grams 08/29/24 gram/dose oral powder (Miralax) Allergies Allergy/AdvReac Type Severity Reaction Status Date / Time dulaglutide [From Trulicity] Allergy Intermediate pruritus, Verified 09/17/24 01:17 swelling latex [LATEX] Allergy Intermediate Hives Verified 09/17/24 01:17 erythromycin base Allergy Unknown UNKNOWN Verified 09/17/24 01:17 [ERYTHROMYCIN BASE] Penicillins [PENICILLINS] Allergy Unknown UNKNOWN Verified 09/17/24 01:17 metformin AdvReac Intermediate abdominal Uncoded 08/29/24 15:11 discomfort Review of Systems 2 Review of Systems: Yes all other systems are reviewed and are negative PMFSH Past Medical History Medical History Microalbuminuria due to type 2 diabetes mellitus Mild aphasia CVA (cerebral vascular accident) Diabetes Seizures Elevated cholesterol Hypertension Ecchymosis Encounter to establish care Hx of cyst of breast Surgical History Hx of colonoscopy History of partial hysterectomy History of thyroid surgery Family History Family History Mother Bone cancer Hypertension Diabetes Father Diabetes Hypertension Maternal Aunt Breast cancer, Onset Age: 49 Family/Other Mental health disorder Social History Social History Housing: Apartment Alcohol intake: never Patient Tobacco Use Status: Never used Tobacco Smoked in Last 30 Days: No e-Cigarette/Vaping Use: Never Used Second Hand Smoke Exposure: No Use of substances other than those prescribed or required for medical reasons: No Advance Directives: No Advance Directives Information Provided: Yes Do you have a plan to hurt others: No Plan Patient : No service: No Current occupational status: unemployed Cognitive needs: Yes (cane ) Hearing needs: No Vision needs: Yes (glasses) Physical Exam 2 Vital Signs: Vital Signs: Last Vital Signs Temp 97.9 F 09/17/24 03:17 Pulse 81 09/17/24 03:17 Resp 16 09/17/24 03:17 BP 121/72 09/17/24 03:17 Pulse Ox 98 09/17/24 03:17 O2 Del Method Room Air 03/01/25 03:17 BMI result Body Mass Index 27.5 Appearance: Alert. Oriented X3. No acute distress. Eyes: No pallor or icterus ENT: Pharynx normal. Oral Mucosa moist Neck: Normal inspection. Neck supple. CVS: Normal heart rate and rhythm. Pulses normal. Respiratory: No respiratory distress. Equal air entry bilateral, no wheezing/rales/rhonchi tenderness of the left chest wall and left 2nd intercostal space Abdomen: Soft and nontender. Bowel sounds are present, no mass palpable, no CVA tenderness Skin: Skin warm and dry. Normal skin color. Normal skin turgor. Extremities: No lower extremity edema. No calf tenderness Neuro: Oriented X 3. No motor deficit. No sensory deficit.No cerebellar signs , cranial nerves II-XII intact Medications Administered Discontinued Medications Generic Name Dose Route Start Last Admin Trade Name Freq PRN Reason Stop Dose Admin Ketorolac Tromethamine 60 mg 09/17/24 02:04 09/17/24 02:16 Ketorolac Tromethamine 60 Mg/2 Ml Vial IM 09/17/24 02:05 60 mg ONCE ONE Administration Medical Decision Making Medical Decision Making [facility] Narrative: Patient has atypical chest pain with recent evaluation including CT cardio in 01/2024 which was negative discharge patient home advised to follow with PCP Differential Diagnosis Differential Diagnoses: The differential diagnosis associated with the presentation includes ACS/costochondritis/musculoskeletal Lab Data [facility] Lab Attestation statement: I reviewed the patient's lab results. 09/17/24 01:21 09/17/24 01:21 Labs: Lab Results 09/17/24 09/17/24 Range/Units 01:21 02:07 WBC 8.2 (4.8-10.8) X10*3/uL RBC 4.39 (4.20-5.50) X10*6/uL Hgb 13.0 (12.0-16.0) g/dl Hct 36.7 L (37.0-47.0) % MCV 83.6 (80.0-98.0) fL MCH 29.6 (27.0-33.0) pg MCHC 35.4 H (31.0-35.0) g/dl RDW 12.6 (11.0-16.0) % Plt Count 346 D (160-400) X10*3/uL MPV 8.4 L (9.4-12.3) fL Immature Gran % (Auto) 0.1 (0.0-0.4) % Neut % (Auto) 53.7 (45-73) % Lymph % (Auto) 35.7 (20-40) % Sargent % (Auto) 6.4 (2-11) % Eos % (Auto) 3.5 (0-4) % Baso % (Auto) 0.6 (0-2) % Lymph # (Auto) 2.9 (1.2-4.9) X10*3/uL Sargent # (Auto) 0.5 (0.1-1.2) X10*3/uL Eos # (Auto) 0.3 (0.0-0.4) X10*3/uL Baso # (Auto) 0.1 (0.0-0.2) X10*3/uL Abs Immat Gran (auto) 0.01 (0.00-0.03) X10*3/uL Absolute Neuts (auto) 4.4 (2.0-8.3) x10*3/uL Absolute Nucleated RBC 0.000 (0.0-0.012) X10*3/uL Nucleated RBC % (auto) 0.0 (0.0-0.2) /100WBC Sodium 140 (135-145) mmol/L Potassium 4.1 (3.3-5.1) mmol/L Chloride 104 (96-108) mmol/L Carbon Dioxide 26 (22-29) mmol/L Anion Gap 14 (12-20) BUN 12 (9-16) mg/dL Creatinine 0.91 (0.5-1.4) mg/dL Estim Creat Clear Calc 70.6 Estimated GFR > 60 Random Glucose 121 H (60-115) mg/dL Calcium 10.1 D (8.4-10.2) mg/dL Total Bilirubin 0.3 (0.0-1.0) mg/dL AST 15 (5-31) U/L ALT 19 (0-31) U/L Alkaline Phosphatase 149 H (39-117) U/L Troponin I High Sens < 2.7 (<3.5-17.0) ng/L Total Protein 8.0 (6.5-8.0) g/dL Albumin 4.2 (3.5-5.0) g/dL Lipase 32 (8-78) U/L Urine Color Yellow Urine Appearance Clear Urine pH 8.0 (5.0-9.0) Ur Specific Anderson 1.010 (1.005-1.025) Urine Protein Negative (Neg-Trace) mg/dL Urine Glucose (UA) Negative (Negative) mg/dL Urine Ketones Negative (Negative) mg/dL Urine Blood Trace H (Negative) Urine Nitrite Negative (Negative) Ur Leukocyte Esterase Negative (Negative) Urine RBC 3-5 H (0-2) /HPF Urine WBC 0-5 (0-5) /HPF Ur Squamous Epith Cells 0-2 (0-2) /HPF Urine Bacteria None Seen (None Seen) Hyaline Casts 0-2 (0-2) /LPF Influenza Type A (PCR) NEGATIVE (Negative) Influenza Type B (PCR) NEGATIVE (Negative) RSV RNA Qual (PCR) NEGATIVE (Negative) SARS-CoV-2 RNA (RT-PCR) NEGATIVE (Negative) Independent Interpretation I performed an independent interpretation of an: EKG Interpretation: Normal sinus rhythm ventricular rate of 76 beats per minute normal interval normal axis poor progression of R-waves no acute STT wave changes no acute ischemia Discharge Plan Discharge Clinical Impression: Costalchondritis Patient Disposition: Home, Self-Care Instructions: Costochondritis (ED) Additional Instructions: Your chest pain likely from inflammation of the cartilage take Tylenol/Motrin for the pain Follow with your PCP Prescriptions: No Action lamotrigine 150 mg tablet 150 mg PO BID 90 Days Qty: 180 1RF levetiracetam 1,000 mg tablet 1,000 mg PO BID Qty: 180 0RF lisinopril 2.5 mg tablet 2.5 mg PO DAILY 90 Days Qty: 90 1RF atorvastatin 40 mg tablet 40 mg PO BEDTIME 90 Days Qty: 90 0RF (DME) FreeStyle Lite Strips Strip See Rx Instructions .Route Qty: 100 3RF Rx Instructions: As directed checks 1 X/day Ozempic 0.25 mg or 0.5 mg (2 mg/3 mL) pen injector 0.5 mg subcut QWEEK Qty: 9 3RF lidocaine 5 % adhesive patch,medicated 1 patch topical DAILY Qty: 30 0RF Rx Instructions: leave on most painful area for up to 12 hrs (DME) FreeStyle Jolene 2 [place] Misc See Rx Instructions .MEDSUPPLY Qty: 1 0RF Rx Instructions: As directed (DME) FreeStyle Jolene 2 Sensor Kit See Rx Instructions .MEDSUPPLY Qty: 1 3RF Rx Instructions: As directed aspirin [Aspir-Siri] 325 mg tablet,delayed release (DR/EC) 325 mg PO DAILY Rx Instructions: Every other day multivitamin [One-A-Day Essential] Tablet 1 tab PO DAILY (DME) blood-glucose meter [Accu-Chek Cindy Plus Meter] Misc See Rx Instructions .Route Qty: 1 0RF Rx Instructions: As directed (DME) blood-glucose meter [FreeStyle Lite Meter] Kit See Rx Instructions .Route Qty: 1 0RF Rx Instructions: As directed checks 1 X/day (DME) lancets [FreeStyle Lancets] 28 gauge misc See Rx Instructions .Route Qty: 100 4RF Rx Instructions: As directed checks 1 X/day pioglitazone 15 mg tablet 15 mg PO DAILY Qty: 90 3RF polyethylene glycol 3350 [Miralax] 17 gram/dose powder 17 g PO DAILY Qty: 850 0RF pantoprazole 40 mg tablet,delayed release (DR/EC) 40 mg PO DAILY Qty: 90 2RF Interventions: ED Discharge Assessment Last Done: 09/17/24 03:17 Discharge Date/Time: 09/17/24 03:19 Print Language: Moroccan
[2024-09-17 01:56] LABS: Alanine Aminotransferase 19 U/L (0-31); Albumin Level 4.2 g/dL (3.5-5.0); Anion Gap 14 (12-20); Aspartate Amino Transferase 15 U/L (5-31); Bilirubin Total 0.3 mg/dL (0.0-1.0); Blood Urea Nitrogen 12 mg/dL (9-16); Calcium 10.1 mg/dL (8.4-10.2); Carbon Dioxide 26 mmol/L (22-29); Chloride 104 mmol/L (96-108); Creatinine Clr Calc Pharmacy 70.6; Estimated Glomerular Filt Rate > 60; Glucose Random 121 mg/dL (60-115); Lipase 32 U/L (8-78); Potassium 4.1 mmol/L (3.3-5.1); Sodium 140 mmol/L (135-145)
[2024-09-17 02:00] LABS: Troponin-I High Sensitivity < 2.7 ng/L (<3.5-17.0)
[2024-09-17 02:04] LABS: Alkaline Phosphatase 149 U/L (39-117)
[2024-09-17] MEDS: Ketorolac Tromethamine 60 MG/2 ML VIAL IM (02:16)
[2024-09-17 02:49] LABS: Influenza A PCR NEGATIVE (Negative); Influenza B PCR NEGATIVE (Negative); Resp Syncy Virus RNA Qual PCR NEGATIVE (Negative); SARS COV2 PCR INHOUSE NEGATIVE (Negative)
[2024-09-17 03:16] VITALS: BP 121/72; PULSE 81; RESP 16; TEMP 36.6; O2SAT 98
[2024-09-17 03:17] VITALS: BP 121/72; PULSE 81; RESP 16; TEMP 36.6; O2SAT 98
== END 2024-09-17 03:19 | disposition home or self-care (01) ==
PROVIDERS: Emergency Provider Internal Medicine; PCP Internal Medicine
DX: M94.0 Chondrocostal junction syndrome [Tietze] (principal); E11.9 Type 2 diabetes mellitus without complications; I10 Essential (primary) hypertension; E78.00 Pure hypercholesterolemia, unspecified; Z79.02 Long term (current) use of antithrombotics/antiplatelets; Z79.899 Other long term (current) drug therapy; Z79.82 Long term (current) use of aspirin; Z03.818 Encounter for observation for suspected exposure to other biological agents ruled out
CPT/HCPCS: 0241U; 36415; 71045; 80053; 81001; 83690; 84484; 85025; 93005; 96372; 99284; 99285; J1885

== ENCOUNTER → 2024-09-17 00:56 | Outpatient (BNV) | payer MEDICARE, MEDICAID, SELFPAY | PROVIDERS: Emergency Provider Internal Medicine; PCP Internal Medicine; Visit Provider Internal Medicine Cardiovascular Disease | DX: R94.31 Abnormal electrocardiogram [ECG] [EKG] (principal); R07.9 Chest pain, unspecified; R53.1 Weakness | CPT/HCPCS: 93010 ==

== ENCOUNTER → 2024-09-17 01:25 | Outpatient (BNV) | payer MEDICARE, MEDICAID, SELFPAY | PROVIDERS: Emergency Provider Internal Medicine; PCP Internal Medicine; Visit Provider Radiology Diagnostic Radiology | DX: R07.89 Other chest pain (principal); R05.9 Cough, unspecified | CPT/HCPCS: 71045 ==

== ENCOUNTER 2024-09-28 14:57 | Outpatient (AMB) | payer MEDICARE, MEDICAID, SELFPAY ==
[2024-09-28 15:01] VITALS: BP 100/76; PULSE 92; O2SAT 97; BMI 31.3
--- NOTE | 2024-09-28 15:01 | MHC.PC.OV ---
Vital Signs 09/28/24 15:01 Height 5 ft 4 in Weight 182 lb 5.156 oz BMI 31.3 BP 100/76 Blood Pressure Location Lt brachial Position Sitting Pulse 92 Pulse Source Pulse Oximeter Pulse Oximetry (%) 97 Oxygen Delivery Method Room Air Intake Visit Reasons: having pain on left side of her right breast. Application Packaging Consultant Required: No Accompanied by: Self / Same As Patient Allergies dulaglutide [From Trulicity] Allergy (Intermediate, Verified 09/28/24 15:23) pruritus, swelling latex [LATEX] Allergy (Intermediate, Verified 09/28/24 15:23) Hives erythromycin base [ERYTHROMYCIN BASE] Allergy (Unknown, Verified 09/28/24 15:23) UNKNOWN Penicillins [PENICILLINS] Allergy (Unknown, Verified 09/28/24 15:23) UNKNOWN metformin Adverse Reaction (Intermediate, Uncoded 09/28/24 15:23) abdominal discomfort Medication List - Last Reconciled 09/28/24 by Jane Littlejohn PA-C aspirin (Aspir-Siri) 325 mg PO DAILY atorvastatin 40 mg PO BEDTIME 90 days blood-glucose meter (Accu-Chek Cindy Plus Meter) As directed blood-glucose meter (FreeStyle Lite Meter kit) As directed checks 1 X/day flash glucose scanning reader (FreeStyle Jolene 2 Tucker) As directed flash glucose sensor (FreeStyle Jolene 2 Sensor kit) As directed FreeStyle Lite Strips (blood sugar diagnostic) As directed checks 1 X/day NS lamotrigine 150 mg PO BID 90 days lancets (FreeStyle Lancets) As directed checks 1 X/day levetiracetam 1,000 mg PO BID lidocaine 5% 1 patch topical DAILY lisinopril 2.5 mg PO DAILY 90 days multivitamin (One-A-Day Essential tablet) 1 tab PO DAILY Ozempic (semaglutide) 0.5 mg (0.736 mL) subcut QWEEK NS pantoprazole 40 mg PO DAILY pioglitazone 15 mg PO DAILY polyethylene glycol 3350 (Miralax) 17 grams PO DAILY Tobacco use date assessed: 09/28/24 Dental Screening Dental Screen Date: 08/08/24 Did you have a dental visit in the last 12 months?: Yes Did you have a dental problem in the last 6 months where you did not have access to dental care?: No Was dental information given to patient?: Patient has dentist HPI having pain on left side of her right breast. HPI Details 54-year-old female with past medical history of hypercholesterolemia, history of CVA, hypertension, seizures last seen by Dr. Castillo 07/2024 coming in for acute problem. In review of the notes, patient was seen in [facility] 09/17/2024 for pain in the left side of the chest EKG was normal and patient was diagnosed with costochondritis. Presenting with persistent left-sided chest pain likely due to costochondritis. The patient experienced initial pain weeks ago and sought emergency care. Cardiac causes were ruled out; she was diagnosed with costochondritis. The patient reports the pain frequency is intermittent and worsened by physical activities like movement or coughing. Pain management with previous medication was not effective. There's no evidence of nipple discharge or rash on the breast. [facility] Medical History Microalbuminuria due to type 2 diabetes mellitus Mild aphasia CVA (cerebral vascular accident) Diabetes Seizures Elevated cholesterol Hypertension Ecchymosis Encounter to establish care Hx of cyst of breast Surgical History Hx of colonoscopy History of partial hysterectomy History of thyroid surgery Family History Mother Bone cancer Hypertension Diabetes Father Diabetes Hypertension Maternal Aunt Breast cancer, Onset Age: 49 Family/Other Mental health disorder Social History Housing: Apartment Alcohol intake: never Patient Tobacco Use Status: Never used Tobacco e-Cigarette/Vaping Use: Never Used Second Hand Smoke Exposure: No service: No Current occupational status: unemployed Cognitive needs: Yes (cane ) Hearing needs: No Vision needs: Yes (glasses) Female Reproductive History Menstrual Age of Menarche: 12 Questionnaire PHQ-9 Over the last 2 weeks, how often have you been bothered by any of the following problems? 1. Little interest or pleasure in doing things: not at all 2. Feeling down, depressed, or hopeless: not at all 3. Trouble falling or staying asleep, or sleeping too much: not at all 4. Feeling tired or having little energy: not at all 5. Poor appetite or overeating: not at all 6. Feeling bad about yourself - or that you are a failure or have let yourself or your family down: not at all 7. Trouble concentrating on things, such as reading the newspaper or watching television: not at all 8. Moving or speaking so slowly that other people could have noticed. Or the opposite - being so fidgety or restless that you have been moving around a lot more than usual: not at all 9. Thoughts that you would be better off or of hurting yourself in some way: not at all Total score: 0 Depression Screening Interpretation: Negative Depression Screening Done: Yes 15856 - PHQ-9 Billing: Yes Source: Developed by Drs. Lamont Beltrán, Pati Jaimes, Bebeto Jerry and colleagues, with an educational lorena from [employer]. Thrive Questionnaire Date Thrive assessed: 09/28/24 I am a: Patient What is your living situation today?: I have a steady place to live Within the past 12 months, did the food you bought not last and you didn't have the money to get more?: Never true Within the past 12 months, did you worry whether your food would run out before you got money to buy more?: Never true Do you have trouble paying for medicines?: No Do you have trouble getting transportation to medical appointments?: No Do you have trouble paying your heating and electricity bill?: No Do you have trouble taking care of your child, family member or friend?: No Do you have trouble with day-to-day activities such as bathing, preparing meals, shopping, managing finances, etc.?: No Are you currently unemployed and looking for a job?: No Are you interested in more education?: No Please select the resources that you would like help with: None Currently or been in a relationship where the following occur: No concerns reported THRIVE Score: 0 AUDIT C Alcohol Use Questionnaire (AUDIT-C) 1. How often do you have a drink containing alcohol?: Never 3. How often do you have six or more drinks on one occasion?: Never Total Score: 0 Score Reviewed/Action Taken: No RAMESH-7 AMB Questionnaire RAMESH-7 Date RAMESH - 7 assessed: 03/12/25 Feeling nervous, anxious, or on edge: 0 = Not at all Not being able to stop or control worryin = Not at all Worrying too much about different things: 0 = Not at all Trouble relaxin = Not at all Being so restless that it is hard to sit still: 0 = Not at all Becoming easily annoyed or irritable: 0 = Not at all Feeling afraid as if something awful might happen: 0 = Not at all Total RAMESH-7 score (0-4 normal; 5-9 mild; 10-14 moderate; 15-21 severe): 0 Source: Developed by Drs. Lamont Beltrán, Pati Jaimes, Bebeto Jerry and colleagues, with an educational lorena from [employer]. RAMESH-7 Assessment Billing RAMESH-7 Assessment Tool: RAMESH-7 Assessment 80921 Review of Systems Const Denies body aches, Denies chills, Denies fever(s) and Denies poor appetite Eyes Reports no additional complaints ENT Reports no additional complaints Card Denies chest pain, Denies lightheadedness, Denies dyspnea and Denies dyspnea on exertion Resp Denies cough, Denies hemoptysis, Denies excessive phlegm production, Denies dyspnea and Denies dyspnea on exertion GI Denies abdominal pain, Denies constipation, Denies diarrhea, Denies nausea and Denies vomiting Reports no additional complaints Musc Reports no additional complaints and Denies abnormal gait Skin/Breast Reports system reviewed and no additional complaints, except as documented Neuro Denies abnormal gait Psych Reports no additional complaints Physical exam (Primary Care) Vital Signs: Last Vital Signs Pulse 92 09/28/24 15:01 BP 100/76 09/28/24 15:01 Pulse Ox 97 09/28/24 15:01 Oxygen Delivery Method Room Air 09/28/24 15:01 BMI result Body Mass Index 31.3 Tobacco/Smoking Status: Tobacco use Status Tobacco use date assessed 09/28/24 09/28/24 15:09 Patient Tobacco Use Status Never used Tobacco 09/28/24 15:09 e-Cigarette/Vaping Use Never Used 09/28/24 15:09 PHQ-9: PHQ-9 Score PHQ-9: Total score 0 09/28/24 15:09 Depression Screening Interpretation: Negative Thrive Assessment: Date of Thrive Assessment Date Thrive assessed 09/28/24 09/28/24 15:09 Currently or been in a relationship where the following occur: No concerns reported Const General: cooperative, healthy appearing, comfortable and no acute distress Orientation/consciousness: patient oriented x3 HENMT Head: Yes normocephalic Ears: hearing grossly normal bilaterally General nose exam: Normal external nose present Eyes General: appearance normal, both eyes and all related structures Conjunctivae: conjunctivae normal Neck Neck: Yes full ROM and Yes no lymphadenopathy Chest Other: No tenderness to palpation over left breast. Tenderness to palpation over anterior aspect left lower ribs and intercostal spaces Resp Effort & Inspection: normal respiratory effort Auscultation: clear to auscultation bilaterally, no crackles, no rales, no rhonchi and no wheezes Cardio Rate: regular rate Rhythm: regular rhythm GI Inspection: Yes normal to inspection Palpation (GI): Soft to palpation, not firm, nontender, no guarding and not rigid Skin General skin exam: no rashes or lesions noted Neuro General: patient oriented x3 Gait exam (Neuro): Normal gait present Extrem General: Yes normal to inspection, Yes full ROM and No edema Psych Affect: normal affect Attitude: cooperative Insight: Good insight present (Psych) Judgement: Good judgement present (Psych) Coding Level of Care Code Est Pt Level 3 (28724) Diagnoses Rib pain R07.81 Additional Codes RAMESH-7 Assessment Billing - RAMESH-7 Assessment Tool: RAMESH-7 Assessment 46081 ([id number]) PHQ-9 - 86726 - PHQ-9 Billing: Yes ([id number]) Assessment & Plan Assessment & Plan (1) Rib pain: Code(s): R07.81 - Pleurodynia Category: Medical Plan: The management plan for the patient includes ordering a dedicated rib X-ray to explore any potential rib fractures or other issues not visible on a chest X-ray, specifically indicated given the ongoing rib pain diagnosis of costochondritis. I prescribed a lidocaine patch and suggested muscle relaxers for nighttime use. We discussed trying these conservative treatments before any invasive measures. Plan This note was constructed using voice recognition software. While every effort has been made to ensure accuracy and egg buyer, still areas may have been included sometimes these areas may affect the content or meeting of the given symptoms. Total time spent caring for the patient today was 20 minutes. This includes time spent before the visit reviewing the chart, time spent during the visit, and time spent after the visit and documentation. Patient was informed and verbally consented to the use of an ambient scribe for clinic note documentation during this visit. Orders: Orders XR ribs BI min 4V w CXR1V Today R07.81 - Pleurodynia Medications: New tizanidine 2 mg PO Q8H PRN 14 caps 0RF muscle spasticity Refilled lidocaine 5% leave on most painful area for up to 12 hrs 1 patch topical DAILY 30 ea 0RF
--- OUTSIDE RECORDS SUMMARY | 2024-09-28 17:34 | XMS_ITS | Clinical Summary ---
Author Organization [facility] it Address [address] [place] [address] Care Team Providers Care Compressor Station Engineer Chief Name Role Phone Mick Vidal MD Primary Care Provider [phone] Surgical History Surgery Date Site/Laterality Comments OTHER [...] 2016 OTHER SURGICAL HISTORY 12/2016 N/A PROCEDURE: RI TOTAL ABDOMINAL HYSTERECT W/WO RMVL TUBE OVARY; COMMENT: Sites. Salpingectomy OTHER SURGICAL HISTORY Right PROCEDURE: RI PRTL THYROID LOBECTOMY UNI W/WO ISTHMUSECTOMY BREAST SURGERY 2019 Left PROCEDURE: RI UNLISTED PROCEDURE BREAST; COMMENT: fibroademona Medical History Medical History Date Comments Lump or mass in breast 01/01/2006 DX:Lump o r mass in breast Dysmenorrhea 07/07/2006 DX:Dysmenorrhea Tuberculin test reaction 07/07/2006 DX:Tube rculin test reaction Fibroid, uterine 06/17/2007 DX:Fibroid, [place] History of CVA (cerebrovascu lar accident) [...] Recently Relevant to Health Maintenance Care Teams Compressor Station Engineer Chief Relationship Specialty Start Date End Date Mick Vidal MD [address] [place] [address] PCP - General Internal Medicine 10/18/21
--- OUTSIDE RECORDS SUMMARY | 2024-09-28 17:34 | XMS_ITS | Clinical Summary ---
Author Organization [facility] Address [address] [facility] [address] [place] [address] Phone Care Team Providers Care Optometrist Assistant Name Role Phone Stephanie García MD Primary Care Provider [phone] Allergies Active Allergy Reactions Criticality Noted Date Comments Erythromycin 08/19/2022 Latex 08/19/2022 Penicillins 08/19/2022 Medications atorvastatin (LIPITOR) 20 MG tablet Take 20 mg by mouth 1 (one) time each day 3 Active Trulicity 0.75 MG/0.5ML solution pen-injector INJECT 0.75 MG (0.5 ML) SUBCUTANEOUSLY EVERY WEEK 2 Active lamoTRIgine (LaMICtal) 150 MG tablet Take 150 mg by mouth in the morning and 150 mg in the evening. 2 Active levETIRAcetam (KEPPRA) 1000 MG tablet Take 1,000 mg by mouth 3 Active aspirin 325 MG tablet Take 325 mg by mouth every other day Active Multiple Vitamin (multivitamin) tablet Take 1 tablet by mouth 1 (one) time each day Active Active Problems Problem Noted Date Diagnosed Date Chronic kidney disease, stage 2 (mild) 3 Postnasal drip 10/07/2022 Cough 10/07/2022 Problems with swallowing and mastication 023 Type 2 diabetes mellitus 02/02/2017 Microscopic hematuria 08/20/2016 Hemiplegia 04/04/2015 Aphasia as late effect of cerebrovascular accide nt 02/08/2015 Overview (10/07/2022): 01/01--According to discharge summary patient to be [...] no shunt 03/23/15- AC management transferred to [facility]. 05/29/16- warfarin stopped per Neuro. On asa 81 mg daily. Seizure 02/08/2015 Overview (10/07/2022): effexor and neurontin started at [facility] and were stopped due to ? 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 07/07/2006 Overview (10/07/2022): Rxd; [place] IMO update Iron deficiency anemia 03/17/2006 Unspecified lump in unspecified breast 6 Family History Medical History Relation Comments Diabetes Father Hypertension Father Cancer Mother Diabetes Mother Hypertension Mother Relation Status Comments Father Mother Social History Tobacco Use Types Packs/Day Years Used Date Smoking Tobacco: Never Smokeless Tobacco: Never Tobacco Cessation:Counseling Given: Not Answered Alcohol Use Standard Drinks/Week Comments Yes 0 (1 standard drink = 0.6 oz pur e alcohol) Comments Unknown Sex and Gender Information Value Date Recorded Sex Assigned at Not on file Legal Sex Female 4:36 PM EST Gender Identity Not on file Sexual Orientation Not on file Last Filed Vital Signs Vital Sign Reading Time Taken Comments Blood Pressure 110/74 01/05/2024 4:39 PM EDT Pulse 84 01/05/2024 4:21 PM EDT Temperature - - Respiratory Rate - - Oxygen Saturation 99% 01/05/2024 4:21 PM EDT Inhaled Oxygen Concentration - - Weight 82.8 kg (182 lb 9.6 oz) 01/05/2024 4:21 P M EDT Height 165.1 cm (5' 5 ) 01/13/2023 2:07 PM EDT Body Mass Index 30.39 01/13/2023 2:07 PM EDT Plan of Treatment Upcoming Encounters Date Type Department Care Team ([facility] st Contact Info) Description 01/18/2025 3:45 PM EDT Office Visit [facility] [address] [facility] [address] [place] [address] Gianna Mart ARNP [address] [facility] [address] [place] [address] Health Maintenance Due Date Last Done Comments Breast Cancer Screening 1972 Hepatitis B Vaccine (1 of 3 - 19+ 3-dose series) 1991 Pneumococcal Vaccine: Pediat rics (0 to 5 Years) and At-Risk Patients (6 to 64 Years) (2 of 2 - PCV) 05/06/2018 05/06/2017 Colorectal Cancer Screening: Annual FOBT 2021 Colorectal Cancer Screening: Colonoscopy 2021 Colorectal Cancer Screening: Sigmoidoscopy 2021 Diabetes: Hemoglobin A1C 08/19/2022 Diabetes: Ophthalmology Exam 08/19/2022 Diabetes: Pedal Pulse Checked 08/19/2022 Diabetes: Sensory Foot Exam 08/19/2022 Diabetes: Visual Foot Exam 08/19/2022 Influenza Vaccine (#1) 2024 0, 04/21/2018, 05/06/2017, Additional history exists [place] Care Teams Optometrist Assistant Relationship Specialty Start Date End Date Stephanie García MD [address] [place] [id number] PCP - General Internal Medicine 01/05/24
== END 2024-09-28 15:37 | disposition home or self-care (01) ==
LOC: HO.HMCH 14:58
PROVIDERS: PCP Internal Medicine
DX: R07.81 Pleurodynia (principal)

== ENCOUNTER 2024-09-28 14:57 | Outpatient (REF) | payer MEDICARE, MEDICAID, SELFPAY ==
--- NOTE | ~2024-09-28 | XR_ITS ---
EXAMINATION: XR RIBS, BILATERAL CLINICAL INFORMATION: R07.81 - Pleurodynia COMPARISON: None available. TECHNIQUE: 3 views of the bilateral ribs and 1 view of the chest were obtained. FINDINGS: Lungs are clear. No consolidation, pneumothorax, or pleural effusion. The cardiomediastinal silhouette and pulmonary vasculature are normal. Osseous structures are unremarkable. Ribs are intact. No fractures are identified. There are surgical clips in the left breast. XR/XR ribs BI min 4V w CXR1V IMPRESSION: No acute findings of the chest or ribs. Electronically signed by: Sal Major MD 09/28/2024 04:11 PM EDT
--- OUTSIDE RECORDS SUMMARY | 2024-09-28 18:26 | XMS_ITS | Clinical Summary ---
Author Organization [facility] Address [address] [facility] [address] [place] [address] Phone Care Team Providers Care Irrigation Technician Name Role Phone Stephanie García MD Primary Care Provider [phone] Allergies Active Allergy Reactions Criticality Noted Date [...] no shunt 03/23/15- AC management transferred to [facility]. 05/29/16- warfarin stopped per Neuro. On asa 81 mg daily. Seizure 02/08/2015 Overview (10/07/2022): effexor and neurontin started at [facility] and were stopped due to ? [...] Upcoming Encounters Date Type Department Care Team ([facility] st Contact Info) Description 01/18/2025 3:45 PM EDT Office Visit [facility] [address] [facility] [address] [place] [address] Gianna Mart ARNP [address] [facility] [address] [place] [address] Health Maintenance Due Date Last [...] 05/06/2017, Additional history exists Insurance [place] Care Teams Irrigation Technician Relationship Specialty Start Date End Date Stephanie García MD [address] [place] [id number] PCP - General Internal Medicine 01/05/24
--- OUTSIDE RECORDS SUMMARY | 2024-09-28 18:26 | XMS_ITS | Clinical Summary ---
Author Organization [facility] it Address [address] [place] [address] Care Team Providers Care Technical Translator Name Role Phone Mick Vidal MD Primary Care Provider [phone] Surgical History Surgery Date Site/Laterality Comments OTHER [...] 2016 OTHER SURGICAL HISTORY 12/2016 N/A PROCEDURE: NM TOTAL ABDOMINAL HYSTERECT W/WO RMVL TUBE OVARY; COMMENT: Sites. Salpingectomy OTHER SURGICAL HISTORY Right PROCEDURE: NM PRTL THYROID LOBECTOMY UNI W/WO ISTHMUSECTOMY BREAST SURGERY 2019 Left PROCEDURE: NM UNLISTED PROCEDURE BREAST; COMMENT: fibroademona Medical History Medical History Date Comments Lump or mass in breast 01/01/2006 DX:Lump o r mass in breast Dysmenorrhea 07/07/2006 DX:Dysmenorrhea Tuberculin test reaction 07/07/2006 DX:Tube rculin test reaction Fibroid, uterine 06/17/2007 DX:Fibroid, [place] History of CVA (cerebrovascu lar accident) [...] Recently Relevant to Health Maintenance Care Teams Technical Translator Relationship Specialty Start Date End Date Mick Vidal MD [address] [place] [address] PCP - General Internal Medicine 10/18/21
== END 2024-09-28 14:58 | disposition home or self-care (01) ==
LOC: HO.XRAY 14:57
PROVIDERS: PCP Internal Medicine
DX: R07.81 Pleurodynia (principal)
CPT/HCPCS: 71111; 96127; 99212

== ENCOUNTER → 2024-09-28 15:55 | Outpatient (BNV) | payer MEDICARE, MEDICAID, SELFPAY | PROVIDERS: PCP Internal Medicine; Visit Provider Radiology Diagnostic Radiology | DX: R07.81 Pleurodynia (principal) | CPT/HCPCS: 71111 ==

== ENCOUNTER 2024-10-26 15:07 | Outpatient (AMB) | payer MEDICARE, MEDICAID, SELFPAY ==
[2024-10-26 15:13] VITALS: BP 104/68; PULSE 94; O2SAT 99; BMI 30.6
--- NOTE | 2024-10-26 15:13 | A.OFFVIS_ITS ---
Vital Signs 10/26/24 15:13 Height 5 ft 4 in Weight 178 lb 9.191 oz BMI 30.6 BP 104/68 Blood Pressure Location Rt brachial Position Sitting Pulse 94 Pulse Source Pulse Oximeter Pulse Oximetry (%) 99 Oxygen Delivery Method Room Air Intake Visit Reasons: DM Intake Note: Patient presents today for a follow-up on Type 2 Diabetes Mellitus: Last Diabetic eye exam was on: 04/2024 Last Podiatry exam was on: Does not see a Licensed Clinical Psychologist Most recent HbA1c: 6.8%, 10/26/2024 Random Glucose- 135 mg/dL, Today Flat Surfacer Required: No Accompanied by: Daughter Allergies dulaglutide [From Trulicity] Allergy (Intermediate, Verified 10/26/24 15:15) pruritus, swelling latex [LATEX] Allergy (Intermediate, Verified 10/26/24 15:15) Hives erythromycin base [ERYTHROMYCIN BASE] Allergy (Unknown, Verified 10/26/24 15:15) UNKNOWN Penicillins [PENICILLINS] Allergy (Unknown, Verified 10/26/24 15:15) UNKNOWN metformin Adverse Reaction (Intermediate, Uncoded 10/26/24 15:15) abdominal discomfort HPI Comments Details: This is a 54-year-old female with diabetes mellitus type 2 presenting for consult. Accompanied by sister who provides most of the history Med history: CVA, hypertension, hyperlipidemia, seizures Current medications: Ozempic 0.5mg weekly, pioglitazone 15mg daily Previous medications: She was using Trulicity for few months and has noticed that there is some local swelling and itchiness when she has the injection. Metformin cause abdominal side effects when use. A1C today 6.8! from Jul 9.3%. She has a traditional glucometer, checking once daily consistently. Denies hypoglycemia. Reviewed glucometer and confirmed ROS CONSTITUTIONAL: Denies weight loss, fever and chills. HEENT: Denies changes in vision and hearing. RESPIRATORY: Denies SOB and cough. CV: Denies palpitations and CP GI: Denies abdominal pain, nausea, vomiting and diarrhea. : Denies dysuria and urinary frequency. MSK: Denies new myalgia and joint pain. SKIN: Denies rash and pruritus. NEUROLOGICAL: Denies headache PSYCHIATRIC: Denies recent changes in mood. PHYSICAL EXAM: GENERAL: Alert and oriented x 3. NAD EYES: EOMI. Anicteric. HENT: Moist mucous membranes. No scleral icterus. No cervical lymphadenopathy. LUNGS: Clear to auscultation bilaterally. CARDIOVASCULAR: RRR. ABDOMEN: Soft, non-tender +bs EXTREMITIES: No edema. Non-tender. SKIN: No rashes or lesions. Warm. NEUROLOGIC: Antalgic gait. PSYCHIATRIC: Cooperative. Appropriate mood and affect [facility] Medical History (Updated 10/26/24 @ 15:42 by Abbi Morales MD) Microalbuminuria due to type 2 diabetes mellitus Mild aphasia CVA (cerebral vascular accident) Diabetes Seizures Elevated cholesterol Hypertension Ecchymosis Encounter to establish care Hx of cyst of breast Surgical History Hx of colonoscopy History of partial hysterectomy History of thyroid surgery Family History Mother Bone cancer Hypertension Diabetes Father Diabetes Hypertension Maternal Aunt Breast cancer, Onset Age: 49 Family/Other Mental health disorder Social History Housing: Apartment Alcohol intake: never Patient Tobacco Use Status: Never used Tobacco e-Cigarette/Vaping Use: Never Used Second Hand Smoke Exposure: No service: No Current occupational status: unemployed Cognitive needs: Yes (cane ) Hearing needs: No Vision needs: Yes (glasses) Female Reproductive History Menstrual Age of Menarche: 12 Physical Exam Vital Signs: Last Vital Signs Pulse 94 10/26/24 15:13 BP 104/68 10/26/24 15:13 Pulse Ox 99 10/26/24 15:13 Oxygen Delivery Method Room Air 10/26/24 15:13 BMI result Body Mass Index 30.6 Results AMB Hemoglobin A1c AMB Hemoglobin A1c 6.8 % Last Edit by LA Mena on 10/26/24 15:29 Results Reviewed Results Reviewed: Laboratory Last Values Glucose (Clinic) 135 mg/dL (60-115) H 10/26/24 15:18 Hgb A1c (Clinic) 6.8 % (4.0-6.0) H 10/26/24 15:27 Assessment & Plan Assessment & Plan (1) Diabetes mellitus: Code(s): E11.9 - Type 2 diabetes mellitus without complications Category: Medical Qualifiers: Diabetes mellitus type: type 2 Diabetes mellitus custodial insulin use: without custodial use Diabetes mellitus complication status: with hyperglycemia Qualified Code(s): E11.65 - Type 2 diabetes mellitus with hyperglycemia (2) Microalbuminuria due to type 2 diabetes mellitus: Code(s): E11.29 - Type 2 diabetes mellitus with other diabetic kidney complication; R80.9 - Proteinuria, unspecified Category: Medical Plan Congratulated on interval glycemic control Will increase ozempic to 1mg weekly When she starts the increase she will hold the Actos until she monitors blood glucose for a few weeks She will return in 3 months or sooner as needed Hypoglycemia with rules of 15s Orders: Orders AMB Hemoglobin A1c Today E11.65 - Type 2 diabetes mellitus with hyperglycemia Medications: New Ozempic (semaglutide) 1 mg (0.75 mL) subcut QWEEK 9 mL 3RF NS E11.65 - Type 2 diabetes mellitus with hyperglycemia Discontinued Ozempic (semaglutide) Discontinued Reason: Doctor's Order 0.5 mg (0.736 mL) subcut QWEEK 9 mL 3RF NS E11.65 - Type 2 diabetes mellitus with hyperglycemia pioglitazone Discontinued Reason: Doctor's Order 15 mg PO DAILY 90 tabs 3RF Coding Level of Care Code Est Pt Level 4 (77716) Diagnoses Type 2 diabetes mellitus with hyperglycemia, without long-term current use of insulin E11.65 Diabetes mellitus type: type 2 Diabetes mellitus extermination inspector insulin use: without extermination inspector use Diabetes mellitus complication status: with hyperglycemia Microalbuminuria due to type 2 diabetes mellitus E11.29; R80.9
[2024-10-26 15:21] LABS: Glucose, Whole Blood 135 mg/dL (60-115)
--- OUTSIDE RECORDS SUMMARY | 2024-10-26 17:14 | XMS_ITS | Clinical Summary ---
Author Organization [facility] Address [address] [facility] [address] [place] [address] Phone Care Team Providers Care Therapeutic Radiologist Name Role Phone Stephanie García MD Primary Care Provider [phone] Allergies Active Allergy Reactions Criticality Noted Date [...] no shunt 03/23/15- AC management transferred to [facility]. 05/29/16- warfarin stopped per Neuro. On asa 81 mg daily. Seizure 02/08/2015 Overview (10/07/2022): effexor and neurontin started at [facility] and were stopped due to ? seizure [...] Care Team (Late st Contact Info) Description 11/17/2024 Orders Only [facility] [address] [facility] [address] [place] [phone] Gianna Mart ARNP [address] [facility] [address] [place] [phone] Chronic kidney disease, stage 2 (mild); Microscopic hematuria; Type 2 diabetes mellitus, not otherwise specified (HCC) 01/18/2025 3:45 PM EDT Office Visit [facility] [address] [facility] [address] [place] [phone] Gianna Mart ARNP [address] [facility] [address] [place] [phone] Health Maintenance Due Date Last Done Comments [...] Diabetes: Visual Foot Exam 08/19/2022 Influenza Vaccine (Season Ended) 2025 05/25/2020, 04/21/2018, 05/06/2017, Additional history exists Insurance MEDICARE [place]ICAID [place] Member Subscriber Plan / Payer (Ef fective 2022-) Name:Virginie Canada Relation to Subscriber:Self Name:Virginie Canada Payer ID:Not on file Group ID:Not on file Type:Not on file Address: [address] MEDICARE [place]ICAID [place] Care Teams Therapeutic Radiologist Relationship Specialty Start Date End Date Stephanie García MD [address] [place] [address] PCP - General Internal Medicine 01/05/24
--- OUTSIDE RECORDS SUMMARY | 2024-10-26 17:14 | XMS_ITS | Clinical Summary ---
Author Organization [facility] it Address [address] [place] [address] Care Team Providers Care Coffee Maker Servicer Name Role Phone Mick Vidal MD Primary Care Provider [phone] Surgical History Surgery Date Site/Laterality Comments OTHER [...] 2016 OTHER SURGICAL HISTORY 12/2016 N/A PROCEDURE: [place] TOTAL ABDOMINAL HYSTERECT W/WO RMVL TUBE OVARY; COMMENT: Sites. Salpingectomy OTHER SURGICAL HISTORY Right PROCEDURE: [place] PRTL THYROID LOBECTOMY UNI W/WO ISTHMUSECTOMY BREAST SURGERY 2019 Left PROCEDURE: SD UNLISTED PROCEDURE BREAST; COMMENT: fibroademona Medical History Medical History Date Comments Lump or mass in breast 01/01/2006 DX:Lump o r mass in breast Dysmenorrhea 07/07/2006 DX:Dysmenorrhea Tuberculin test reaction 07/07/2006 DX:Tube rculin test reaction Fibroid, uterine 06/17/2007 DX:Fibroid, mcgrath rine History of CVA (cerebrovascu lar accident) [...] COVID-19 Vaccine ( season) 2024 Influenza Vaccine (Season Ended) 2025 05/25/2020, 04/21/2018, 05/06/2017, Additional history exists Pneumococcal Vaccine: [...] age to complete this topic Meningococcal B Vaccine Aged Out No l onger eligible based on patient's age to complete [...] Recommendation: Routine annual screening mammography is recommended Elida Matthews MD IMG XR PROCEDURES Final Res ult from Last 3 Months or Most Recently Relevant to Health Maintenance Care Teams Coffee Maker Servicer Relationship Specialty Start Date End Date Mick Vidal MD [address] [place] [address] PCP - General Internal Medicine 10/18/21
== END 2024-10-26 15:39 | disposition home or self-care (01) ==
LOC: HO.ENCR 15:07
PROVIDERS: PCP Internal Medicine; Visit Provider Internal Medicine
DX: E11.65 Type 2 diabetes mellitus with hyperglycemia (principal); E11.29 Type 2 diabetes mellitus with other diabetic kidney complication; R80.9 Proteinuria, unspecified

== ENCOUNTER → 2024-10-26 15:07 | Outpatient (BNVA) | payer MEDICARE, MEDICAID, SELFPAY | PROVIDERS: PCP Internal Medicine; Visit Provider Internal Medicine | DX: E11.65 Type 2 diabetes mellitus with hyperglycemia (principal); E11.29 Type 2 diabetes mellitus with other diabetic kidney complication; E78.5 Hyperlipidemia, unspecified; I10 Essential (primary) hypertension; R80.9 Proteinuria, unspecified; Z86.73 Personal history of transient ischemic attack (TIA), and cerebral infarction without residual deficits | CPT/HCPCS: 82947; 83036; 99212 ==

== ENCOUNTER 2024-12-07 15:04 | Outpatient (AMB) | payer MEDICARE, MEDICAID, SELFPAY ==
--- OUTSIDE RECORDS SUMMARY | 2024-12-07 15:08 | XMS_ITS | Clinical Summary ---
Author Organization [facility] Address [address] [facility] [address] [place] [address] Phone Care Team Providers Care Pin Sticker Name Role Phone Stephanie García MD Primary Care Provider [phone] Allergies Active Allergy Reactions Criticality Noted Date [...] no shunt 03/23/15- AC management transferred to [facility]. 05/29/16- warfarin stopped per Neuro. On asa 81 mg daily. Seizure 02/08/2015 Overview (10/07/2022): effexor and neurontin started at [facility] and were stopped due to ? 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 07/07/2006 Overview (10/07/2022): Rxd; [place] IMO update Iron deficiency anemia 03/17/2006 Unspecified lump in unspecified breast 6 Encounters Date Type Department Care Team Description 11/17/2024 Orders Only [facility] [address] [place] [address] [place] [address] Gianna Mart ARNP Chronic kidney disease, stage 2 (mild); Microscopic hematuria; Type 2 diabetes mellitus, not otherwise specified (HCC) from Last 3 Months Family History Medical History Relation Comments Diabetes [...] Upcoming Encounters Date Type Department Care Team ([facility] st Contact Info) Description 01/18/2025 3:45 PM EDT Office Visit [facility] [address] [facility] [address] [place] [address] Gianna Mart ARNP [address] [address] Health Maintenance Due Date Last Done Comments Breast Cancer Screening 1972 Hepatitis B Vaccine (1 of 3 - 19+ 3-dose series) 1991 Pneumococcal Vaccine: 50+ Ye ars (2 of 2 - PCV) 05/06/2018 05/06/2017 Colorectal Cancer Screening: Annual FOBT 2021 Colorectal Cancer Screening: Colonoscopy 2021 Colorectal Cancer Screening: Sigmoidoscopy 2021 Diabetes: Hemoglobin A1C 08/19/2022 Diabetes: Ophthalmology Exam 08/19/2022 Diabetes: Pedal Pulse Checked 08/19/2022 Diabetes: Sensory Foot Exam 08/19/2022 Diabetes: Visual Foot Exam 08/19/2022 Influenza Vaccine (Season Ended) 2025 05/25/2020, 04/21/2018, 05/06/2017, Additional history exists Pneumococcal Vaccine: Peds ( 0 to 5 Years) and At-Risk Patients (6 to 49 Years) Discontinued 05/06/2017 Insurance Medicare Medicaid [place] Member Subscriber Plan / Payer (Ef fective 2022-Present) Name:Virginie Canada Relation to Subscriber:Self Name:Virginie Canada Payer ID:Not on file Group ID:Not on file Type:Not on file Address: [address] Medicare Medicaid [place] Care Teams Pin Sticker Relationship Specialty Start Date End Date Stephanie García MD [address] [place] [address] PCP - General Internal Medicine 01/05/24
--- OUTSIDE RECORDS SUMMARY | 2024-12-07 15:08 | XMS_ITS | Clinical Summary ---
Author Organization [facility] Address [address] [place] [address] Care Team Providers Care Gelatin Maker Utility Name Role Phone Mick Vidal MD Primary Care Provider [phone] Surgical History Surgery Date Site/Laterality Comments OTHER [...] 2016 OTHER SURGICAL HISTORY 12/2016 N/A PROCEDURE: [facility] TOTAL ABDOMINAL HYSTERECT W/WO RMVL TUBE OVARY; COMMENT: Sites. Salpingectomy OTHER SURGICAL HISTORY Right PROCEDURE: [facility] PRTL THYROID LOBECTOMY UNI W/WO ISTHMUSECTOMY BREAST SURGERY 2019 Left PROCEDURE: [facility] UNLISTED PROCEDURE BREAST; COMMENT: fibroademona Medical History Medical History Date Comments Lump or mass in breast 01/01/2006 DX:Lump o r mass in breast Dysmenorrhea 07/07/2006 DX:Dysmenorrhea Tuberculin test reaction 07/07/2006 DX:Tube rculin test reaction Fibroid, uterine 06/17/2007 DX:Fibroid, agata rine History of CVA (cerebrovascu lar accident) 11/28/2014 DX:History of CVA (cerebrova scular accident) Thyroid nodule 07/16/2015 DX:Thyroid nodul e Type 2 diabetes mellitus wit h neurological manifestations, controlled (CMS/HCC V24, CMS/HCC V28) 02/02/2017 DX:Type 2 diabet es mellitus with neurological manifestations, controlled (HCC) Positive [...] Recently Relevant to Health Maintenance Care Teams Gelatin Maker Utility Relationship Specialty Start Date End Date Mick Vidal MD [address] [place] [address] PCP - General Internal Medicine 10/18/21
[2024-12-07 15:10] VITALS: BP 132/80; BMI 29.3
--- NOTE | 2024-12-07 15:10 | MHC.PC.OV ---
Vital Signs 12/07/24 15:10 Height 5 ft 4 in Weight 171 lb BMI 29.3 BP 132/80 Blood Pressure Location Lt brachial Position Sitting Intake Visit Reasons: dm Intake Note: Patient here for a follow up DM Geophysics Professor Required: No Accompanied by: Sister Allergies dulaglutide [From Trulicity] Allergy (Intermediate, Verified 12/07/24 15:25) pruritus, swelling latex [LATEX] Allergy (Intermediate, Verified 12/07/24 15:25) Hives erythromycin base [ERYTHROMYCIN BASE] Allergy (Unknown, Verified 12/07/24 15:25) UNKNOWN Penicillins [PENICILLINS] Allergy (Unknown, Verified 12/07/24 15:25) UNKNOWN metformin Adverse Reaction (Intermediate, Uncoded 12/07/24 15:25) abdominal discomfort Medication List - Last Reconciled 12/07/24 by Stephanie Phipps MD aspirin (Aspir-Siri) 325 mg PO DAILY atorvastatin 40 mg PO BEDTIME 90 days blood-glucose meter (Accu-Chek Cindy Plus Meter) As directed blood-glucose meter (FreeStyle Lite Meter kit) As directed checks 1 X/day flash glucose scanning reader (FreeStyle Jolene 2 [place]) As directed flash glucose sensor (FreeStyle Jolene 2 Sensor kit) As directed FreeStyle Lite Strips (blood sugar diagnostic) As directed checks 1 X/day NS lamotrigine 150 mg PO BID 90 days lancets (FreeStyle Lancets) As directed checks 1 X/day levetiracetam 1,000 mg PO BID lidocaine 5% 1 patch topical DAILY lisinopril 2.5 mg PO DAILY 90 days multivitamin (One-A-Day Essential tablet) 1 tab PO DAILY Ozempic (semaglutide) 1 mg (0.75 mL) subcut QWEEK NS pantoprazole 40 mg PO DAILY polyethylene glycol 3350 (Miralax) 17 grams PO DAILY tizanidine 2 mg PO Q8H PRN Tobacco use date assessed: 09/28/24 Dental Screening Dental Screen Date: 08/08/24 HPI HPI Comments History of Present Illness Details The patient is a 54-year-old female presenting with follow-up for chronic condition management and the scheduling of a physical examination. The patient's medical history is notable for a stroke in 2014 that has resulted in right-sided weakness, for which she is on aspirin therapy. Her blood pressure is managed effectively with lisinopril, with a last recorded measure of 132/80 mmHg. She has type 2 diabetes mellitus, with significant recent improvement in glycemic control marked by a decrease in A1c from 9.3% to 6.8%, attributed to Ozempic therapy and lifestyle modifications, leading to weight loss from 182 lbs to 171 lbs. The patient has several documented drug allergies, including reactions to Trulicity, latex, erythromycin, penicillins, and metformin. Despite being on a recalled lot of atorvastatin, there are no immediate concerns; thus, current management remains unchanged pending further evaluation. She is seizure-free due to maintained therapy with lamotrigine and Keppra. The patient voiced concerns over the coverage for a physical examination, given the discrepancy between Medicare and Medicaid offerings, and wants reassurance that an exam can be covered without unexpected bills. Her primary concerns involve managing chronic conditions effectively to avoid further health complications. [facility] Medical History Microalbuminuria due to type 2 diabetes mellitus Mild aphasia CVA (cerebral vascular accident) Diabetes Seizures Elevated cholesterol Hypertension Ecchymosis Encounter to establish care Hx of cyst of breast Surgical History Hx of colonoscopy History of partial hysterectomy History of thyroid surgery Family History Mother Bone cancer Hypertension Diabetes Father Diabetes Hypertension Maternal Aunt Breast cancer, Onset Age: 49 Family/Other Mental health disorder Social History Housing: Apartment Alcohol intake: never Patient Tobacco Use Status: Never used Tobacco e-Cigarette/Vaping Use: Never Used Second Hand Smoke Exposure: No service: No Current occupational status: unemployed Cognitive needs: Yes (cane ) Hearing needs: No Vision needs: Yes (glasses) Female Reproductive History Menstrual Age of Menarche: 12 Questionnaire Thrive Questionnaire Date Thrive assessed: 09/28/24 RAMESH-7 AMB Questionnaire RAMESH-7 Date RAMESH - 7 assessed: 09/28/24 Source: Developed by Drs. Lamont Beltrán, Pati Jaimes, Bebeto Jrery and colleagues, with an educational lorena from [employer]. Review of Systems Const All systems reviewed & are unremarkable except as noted in HPI and below Card Denies chest pain at rest, Denies chest pain with activity, Denies edema, Denies irregular heart rhythm, Denies claudication, Denies dyspnea, Denies dyspnea on exertion, Denies orthopnea, Denies paroxysmal nocturnal dyspnea and Denies slow heart rate Resp Denies cough, Denies dyspnea and Denies dyspnea on exertion Neuro Reports focal weakness Physical exam (Primary Care) Vital Signs: Last Vital Signs BP 132/80 12/07/24 15:10 BMI result Body Mass Index 29.3 Tobacco/Smoking Status: Tobacco use Status Tobacco use date assessed 09/28/24 12/07/24 15:18 Patient Tobacco Use Status Never used Tobacco 12/07/24 15:18 e-Cigarette/Vaping Use Never Used 12/07/24 15:18 Thrive Assessment: Date of Thrive Assessment Date Thrive assessed 09/28/24 12/07/24 15:18 Resp Effort & Inspection: normal respiratory effort Auscultation: clear to auscultation bilaterally Cardio Jugular venous distension: no JVD Rate: regular rate Rhythm: regular rhythm Heart sounds: S1 normal heart sound present and S2 normal heart sound present Neuro Motor exam (neuro): Abnormal motor strength present (left 5/5, RUE 2/5, LUE 4/5) Extrem General: Yes full ROM Coding Level of Care Code Est Pt Level 4 (65689) Complex EM visit Add On G2211 Diagnoses Seizures R56.9 CVA (cerebral vascular accident) I63.9 Type 2 diabetes mellitus with hyperglycemia, without long-term current use of insulin E11.65 Diabetes mellitus type: type 2 Diabetes mellitus retirement insulin use: without intermediate teacher use Diabetes mellitus complication status: with hyperglycemia Hemiparesis as late effect of cerebrovascular disease, unspecified cerebrovascular disease type, unspecified laterality I69.959 Hemiparesis etiology: late effect of cerebrovascular disease Cerebrovascular disease type: unspecified Hemiparesis laterality: unspecified Hypertension I10 Hyperlipidemia E78.5 Time Spent (min) 25 Assessment & Plan Assessment & Plan (1) Seizures: Code(s): R56.9 - Unspecified convulsions Category: Medical (2) CVA (cerebral vascular accident): Comment: 2014 Code(s): I63.9 - Cerebral infarction, unspecified Category: Medical (3) Diabetes mellitus: Code(s): E11.9 - Type 2 diabetes mellitus without complications Category: Medical Qualifiers: Diabetes mellitus type: type 2 Diabetes mellitus intermediate teacher insulin use: without retirement use Diabetes mellitus complication status: with hyperglycemia Qualified Code(s): E11.65 - Type 2 diabetes mellitus with hyperglycemia (4) Hemiparesis: Comment: Right-sided after CVA 11/2014 Code(s): G81.90 - Hemiplegia, unspecified affecting unspecified side Category: Medical Qualifiers: Hemiparesis etiology: late effect of cerebrovascular disease Cerebrovascular disease type: unspecified Hemiparesis laterality: unspecified Qualified Code(s): I69.959 - Hemiplegia and hemiparesis following unspecified cerebrovascular disease affecting unspecified side (5) Hypertension: Code(s): I10 - Essential (primary) hypertension Category: Medical (6) Hyperlipidemia: Code(s): E78.5 - Hyperlipidemia, unspecified Category: Medical Plan The patient?s chronic conditions and healthcare coverage were the focus of this consultation. Her blood pressure is well managed with lisinopril, and her diabetes control is significantly improved, credited to the usage of Ozempic. Amid the atorvastatin recall, no immediate changes were made, but rosuvastatin will be considered as an alternative. Seizure prevention continues successfully with lamotrigine and Keppra. Blood work will be evaluated to further investigate the efficacy of current cholesterol management. A physical examination appointment will be scheduled under the patient's Medicaid coverage to prevent unforeseen expenses. I reviewed her drug allergies comprehensively, ensuring she abstains from any of those medications. Support was offered concerning her immigration documentation process, advising further detail clarification on her medical inability to perform the test required for her paperwork. Patient was informed and verbally consented to the use of an ambient scribe for clinic note documentation during this visit. I discussed with the patient the efficacy of her current diabetes and hypertension management, particularly highlighting the success of Ozempic. Concerns regarding atorvastatin recall were addressed, with reassurance given about the current plan to continue monitoring. Changing to rosuvastatin was considered to address recall concerns. I clarified the confusion regarding Medicare and Medicaid to ensure her physical exam was scheduled under the correct coverage. I emphasized the importance of continuing seizure management with current medications. Guidance was provided for further immigration paperwork submissions, suggesting further additions for stronger support in applications. Consent for planned labs and intended medication adjustments was explicitly confirmed with the patient. Medications: New rosuvastatin 40 mg PO DAILY 90 tabs 1RF 90 days Discontinued atorvastatin Discontinued Reason: Patient Completed Course 40 mg PO BEDTIME 90 days 90 tabs 0RF Patient Instructions: - Continue current medications as prescribed and monitor for any adverse effects. - Attend the scheduled appointment for blood work to reassess cholesterol levels. - Schedule a physical examination under Medicaid coverage within the next few months. - Follow up on insurance coverage with Medicaid to prevent unexpected costs. - Provide more detailed explanations in immigration paperwork for better clarity. - Reach out to medical providers if experiencing seizure activity or adverse side effects from current medications.
== END 2024-12-07 15:45 | disposition home or self-care (01) ==
LOC: HO.HMCH 15:05
PROVIDERS: PCP Internal Medicine; Visit Provider Internal Medicine
DX: R56.9 Unspecified convulsions (principal); I63.9 Cerebral infarction, unspecified; E11.65 Type 2 diabetes mellitus with hyperglycemia; I69.959 Hemiplegia and hemiparesis following unspecified cerebrovascular disease affecting unspecified side; I10 Essential (primary) hypertension; E78.5 Hyperlipidemia, unspecified

== ENCOUNTER → 2024-12-07 15:04 | Outpatient (BNVA) | payer MEDICARE, MEDICAID, SELFPAY | PROVIDERS: PCP Internal Medicine; Visit Provider Internal Medicine | DX: R56.9 Unspecified convulsions (principal); I63.9 Cerebral infarction, unspecified; E11.65 Type 2 diabetes mellitus with hyperglycemia; I10 Essential (primary) hypertension; E78.5 Hyperlipidemia, unspecified; I69.951 Hemiplegia and hemiparesis following unspecified cerebrovascular disease affecting right dominant side | CPT/HCPCS: 99212 ==

== ENCOUNTER 2025-02-22 16:07 | Outpatient (REF) | payer MEDICARE, MEDICAID, SELFPAY ==
[2025-02-22 17:43] LABS: Appearance Urine Clear; Glucose Urine UA Negative (Negative); PH 6.0 (5.0-9.0); Specific Gravity - Urine >= 1.030 (1.005-1.025); UMIC TRIGGER UACC YES
== END 2025-02-22 16:08 | disposition home or self-care (01) ==
LOC: HO.LAB 16:07
PROVIDERS: PCP Internal Medicine; Visit Provider Internal Medicine
DX: E11.65 Type 2 diabetes mellitus with hyperglycemia (principal); E11.29 Type 2 diabetes mellitus with other diabetic kidney complication; R80.9 Proteinuria, unspecified
CPT/HCPCS: 81001; 82947; 83036; 99212

== ENCOUNTER 2025-02-22 16:07 | Outpatient (AMB) | payer MEDICARE, MEDICAID, SELFPAY ==
[2025-02-22 16:09] VITALS: BP 112/68; PULSE 85; O2SAT 96; BMI 29.1
--- NOTE | 2025-02-22 16:09 | A.OFFVIS_ITS ---
Vital Signs 02/22/25 16:09 Height 5 ft 4 in Weight 169 lb 12.095 oz BMI 29.1 BP 112/68 Blood Pressure Location Rt brachial Position Sitting Pulse 85 Pulse Source Pulse Oximeter Pulse Oximetry (%) 96 Oxygen Delivery Method Room Air Intake Visit Reasons: DM Intake Note: Patient presents today for a follow-up on Type 2 Diabetes Mellitus: Last Diabetic eye exam was on: 04/2024 Last Podiatry exam was on: Does not see a Patient Resource Coordinator Most recent HbA1c: 6.4%, 02/22/2025 Random Glucose- 139 mg/dL, Today Laundry Or Dry Cleaners Counter Clerk Required: No Accompanied by: Sister Allergies dulaglutide (From ffk environment) Allergy (Intermediate, Verified 02/22/25 16:11) pruritus, swelling latex (LATEX) Allergy (Intermediate, Verified 02/22/25 16:11) Hives erythromycin base (ERYTHROMYCIN BASE) Allergy (Unknown, Verified 02/22/25 16:11) UNKNOWN Penicillins (PENICILLINS) Allergy (Unknown, Verified 02/22/25 16:11) UNKNOWN metformin Adverse Reaction (Intermediate, Uncoded 02/22/25 16:11) abdominal discomfort HPI Comments Details: This is a 54-year-old female with diabetes mellitus type 2 presenting for consult. Accompanied by sister who provides most of the history Med history: CVA, hypertension, hyperlipidemia, seizures Current medications: Ozempic 1mg weekly, Off pioglitazone 15mg daily Previous medications: She was using Trulicity for few months and has noticed that there is some local swelling and itchiness when she has the injection. Metformin cause abdominal side effects when use. A1C today 6.8! from Jul 9.3%. She has a traditional glucometer, checking once daily consistently. Denies hypoglycemia. Reviewed glucometer and confirmed ROS CONSTITUTIONAL: Denies weight loss, fever and chills. HEENT: Denies changes in vision and hearing. RESPIRATORY: Denies SOB and cough. CV: Denies palpitations and CP GI: Denies abdominal pain, nausea, vomiting and diarrhea. : Denies dysuria and urinary frequency. MSK: Denies new myalgia and joint pain. SKIN: Denies rash and pruritus. NEUROLOGICAL: Denies headache PSYCHIATRIC: Denies recent changes in mood. PHYSICAL EXAM: GENERAL: Alert and oriented x 3. NAD EYES: EOMI. Anicteric. HENT: Moist mucous membranes. No scleral icterus. No cervical lymphadenopathy. LUNGS: Clear to auscultation bilaterally. CARDIOVASCULAR: RRR. ABDOMEN: Soft, non-tender +bs EXTREMITIES: No edema. Non-tender. SKIN: No rashes or lesions. Warm. NEUROLOGIC: Antalgic gait. PSYCHIATRIC: Cooperative. Appropriate mood and affect [facility] Medical History Microalbuminuria due to type 2 diabetes mellitus Mild aphasia CVA (cerebral vascular accident) Diabetes Seizures Elevated cholesterol Hypertension Ecchymosis Encounter to establish care Hx of cyst of breast Surgical History Hx of colonoscopy History of partial hysterectomy History of thyroid surgery Family History Mother Bone cancer Hypertension Diabetes Father Diabetes Hypertension Maternal Aunt Breast cancer, Onset Age: 49 Family/Other Mental health disorder Social History Housing: Apartment Alcohol intake: never Patient Tobacco Use Status: Never used Tobacco e-Cigarette/Vaping Use: Never Used Second Hand Smoke Exposure: No service: No Current occupational status: unemployed Cognitive needs: Yes (cane ) Hearing needs: No Vision needs: Yes (glasses) Female Reproductive History Menstrual Age of Menarche: 12 Physical Exam Vital Signs: Last Vital Signs Pulse 85 02/22/25 16:09 BP 112/68 02/22/25 16:09 Pulse Ox 96 02/22/25 16:09 Oxygen Delivery Method Room Air 02/22/25 16:09 BMI result Body Mass Index 29.1 Results AMB Hemoglobin A1c AMB Hemoglobin A1c 6.4 % Last Edit by LA Mena on 02/22/25 16:22 Results Reviewed Results Reviewed: Laboratory Last Values Glucose (Clinic) 139 mg/dL (60-115) H 02/22/25 16:13 Hgb A1c (Clinic) 6.4 % (4.0-6.0) H 02/22/25 16:19 Assessment & Plan Assessment & Plan (1) Diabetes mellitus: Code(s): E11.9 - Type 2 diabetes mellitus without complications Category: Medical Qualifiers: Diabetes mellitus type: type 2 Diabetes mellitus intermediate school teacher insulin use: without usp use Diabetes mellitus complication status: with hyperglycemia Qualified Code(s): E11.65 - Type 2 diabetes mellitus with hyperglycemia (2) Microalbuminuria due to type 2 diabetes mellitus: Code(s): E11.29 - Type 2 diabetes mellitus with other diabetic kidney complication; R80.9 - Proteinuria, unspecified Category: Medical Orders: Orders AMB Hemoglobin A1c Today E11.29 - Type 2 diabetes mellitus with other diabetic kidney complication, R80.9 - Proteinuria, unspecified UA CC w/rflx Micro + Cult Today R30.0 - Dysuria Coding Diagnoses Type 2 diabetes mellitus with hyperglycemia, without long-term current use of insulin E11.65 Diabetes mellitus type: type 2 Diabetes mellitus intermediate school teacher insulin use: without usp use Diabetes mellitus complication status: with hyperglycemia Microalbuminuria due to type 2 diabetes mellitus E11.29; R80.9
[2025-02-22 16:17] LABS: Glucose, Whole Blood 139 mg/dL (60-115)
--- OUTSIDE RECORDS SUMMARY | 2025-02-22 16:27 | XMS_ITS ---
Author Name [facility] Organization Unknown Care Team Organization Name Specialty Phone Email Start Date End Da te [facility] Wendy Guerra Primary Care 05/27/2022 03/07/2024
--- OUTSIDE RECORDS SUMMARY | 2025-02-22 16:27 | XMS_ITS | Clinical Summary ---
Author Organization [facility] Address [address] [place] [address] Phone Care Team Providers Care Diesel Truck Crane Operator Name Role Phone Estephania Padilla NP Primary Care Provider [phone] Allergies Active Allergy Reactions Criticality Noted Date Comments Edetate Disodium Rash Low 08/14/2005 Erythromycin 08/19/2022 Latex Rash Low 03/08/2014 Penicillins 08/19/2022 Medications blood sugar diagnostic (ACCU-CHEK TRISH PLUS) Strp strips Check blood sugars daily. 022 Active atorvastatin (LIPITOR) 20 MG tablet Take 1 tablet by mouth every morning. 023 Active aspirin 325 MG tablet Take 325 mg by mouth. Active dulaglutide (TRULICITY) 0.75 mg/0.5 mL subcutaneous injection INJECT 0.75 MG (0.5 ML) SUBCUTANEOUSLY EVERY WEEK 022 Active TRULICITY 0.75 mg/0.5 mL subcutaneous injection INJECT 0.75 MG (0.5 ML) SUBCUTANEOUSLY WEEKLY 023 Active multivit-minerals /folic/ginkgo (WOMEN'S 50+ DAILY FORM, GKB, ORAL) Active lisinopril (PRINIVIL,ZESTRIL ) 2.5 MG tablet Acti ve triamcinolone acetonide 0.05 % Oint Apply 1 g topically. 022 Active lancing device with lancets Kit Check blood sugars daily 022 Active naproxen (NAPROSYN) 500 MG tablet Take 1 tablet (500 mg total) by mouth 2 (two) times a day for 3 days. Then twice daily as needed for pain, inflammation 20 tablet 024 Active chlorhexidine (PERIDEX) 0.12 % solution Swish and spit 15 mL 2 (two) times a day. For 30 sec.do not swallow. 473 mL 024 Active levETIRAcetam (KEPPRA) 1000 MG IMMEDIATE release tabletIndications :Seizure as late effect of cerebrovascular accident (CVA) TAKE 1/2 TABLET BY MOUTH EVERY MORNING AND TAKE 1 TABLET EVERY EVENING 135 tablet 5 025 Active lamoTRIgine (LAMICTAL) 150 MG IMMEDIATE release tabletIndications :Seizure as late effect of cerebrovascular accident (CVA) TAKE 1 TABLET BY MOUTH TWICE A DAY 180 tablet 3 025 Active lamoTRIgine (LAMICTAL) 150 MG IMMEDIATE release tabletIndications :Seizure as late effect of cerebrovascular accident (CVA) take 1 tablet by mouth twice a day 180 tablet 3 024 2024 Discontinued Active Problems No known active problems Encounters Date Type Department Care Team Description 02/12/2025 Refill [facility] Neurology [address] [place] [address] Prem Carrillo MD Medication Refill from Last 3 Months Social History Tobacco Use Types Packs/Day Years Used Date Smoking Tobacco: Never Smokeless Tobacco: Never Tobacco Cessation:Counseling Given: Not Answered Education Answer Date Recorded Are you interested [...] Orientation Straight 06/09/2021 4: 40 AM EST Last Filed Vital Signs Vital Sign Reading Time Taken Comments Blood Pressure 122/79 01/01/2024 12:17 PM EDT Pulse 89 01/01/2024 12:17 PM EDT Temperature 36.8 C (98.3 F) 01/01/2024 12:17 PM EDT Respiratory Rate 16 01/01/2024 12:17 PM EDT Oxygen Saturation 99% 01/01/2024 12:17 PM EDT Inhaled Oxygen Concentration - - Weight 68.9 kg (152 lb) 01/01/2024 12:17 PM EDT Height 165.1 cm (5' 5 ) 01/01/2024 12:17 PM EDT Body Mass Index 25.29 01/01/2024 12:17 PM EDT Plan of Treatment Upcoming Encounters Date Type Department Care Team (Late st Contact Info) Description 03/27/2025 1:00 PM EDT Office Visit [facility] Neurology [address] [place] [address] Prem Carrillo MD [address] [facility] [place] [address] [email or web address] Health Maintenance Due Date Last Done Comments DEPRESSION SCREENING 1984 HEPATITIS C SCREENING 1990 HIV ONE-TIME SCREENING (18-6 5 YEARS) 1990 PAP SMEAR 1993 SCREENING FOR DIABETES 2007 MAMMOGRAM 2012 COLOGUARD 2017 COLONOSCOPY 2017 COLORECTAL CANCER SCREENING 2017 FIT TEST 2017 FOBT 2017 SIGMOIDOSCOPY 2017 VIRTUAL COLONOSCOPY 2017 PNEUMOCOCCAL VACCINES (50+ years) (2 of 2 - PCV) 2022 05/06/2017 ZOSTER VACCINES (1 of 2) 2022 CREATININE LEVEL 07/05/2022 07/05/2021, 06/09/2021 POTASSIUM LEVEL 07/05/2022 07/05/2021, 06/09/2021 COVID-19 VACCINE (1 - 2023-2 5 season) 2024 LIPID PANEL 05/13/2026 05/13/2021 Adult Td,Tdap Booster 02/03/2033 02/03/2023 , 01/24/2013, 03/22/2002 SMOKING STATUS SCREENING (On ce After 26 Yrs) Completed 01/01/2024 HEPATITIS A VACCINES Aged Out No long er eligible based on patient's age to complete this topic HIB VACCINES Aged Out No longer eligi ble based on patient's age to complete this topic MENINGOCOCCAL VACCINES (ACWY) Aged Out No longer eligible based on patient's age to complete this topic MENINGOCOCCAL VACCINES (B) Aged Out N o longer eligible based on patient's age to complete this topic Medical Devices Not on file Procedures Procedure Name Priority Date/Time Associated Diagnosis Comments BASIC METABOLIC PANEL STAT 07/05/2021 12:31 PM EST from Last 3 Months or Most Recently Relevant to Health Maintenance Results * (ABNORMAL) Basic metabolic panel (07/05/2021 12:31 PM EST) SODIUM 135 133 - 146 mmol/L [facility] CHLORIDE 100 96 - 108 mmol/L [facility] POTASSIUM 4.1 3.3 - 5.1 mmol/L [facility] CO2 26 21 - 35 mmol/L [facility] BUN 11 6 - 19 mg/dL [facility] CREATININE 0.80 0.5 - 1.5 mg/dL [facility] GLUCOSE 158(H) 70 - 99 mg/dL [facility] CALCIUM 9.3 8.4 - 10.3 mg/dL [facility] EGFR 90 >59 mL/min/1.7 3m2 [facility] Comment:Estimated glomerular filtration rate calculated using the CKD-EPI refit equation. ANION GAP 13 10 - 20 mmol/L [facility] Blood 07/05/2021 12:3 1 PM EST 07/05/2021 12:45 PM EST us Giuliana Krishnan PA-C LAB BLOOD ORDERABLES Fi nal Result [address] [address] from Last 3 Months or Most Recently Relevant to Health Maintenance Insurance MEDICARE PART A & B [place] A & B [facility] Care Teams Diesel Truck Crane Operator Relationship Specialty Start Date End Date Estephania Padilla NP [address] [facility] [address] [place] [address] PCP - General 07/01/22 Additional Source Comments The information contained in this document represents components of the legal health record. It is not the complete legal health record.[facility]
--- OUTSIDE RECORDS SUMMARY | 2025-02-22 16:27 | XMS_ITS | Encounter Summary ---
Author Organization [facility] Address [address] [place] [address] Care Team Providers Care Vice President Lending Name Role Phone Osiel Gann MD Primary Care Provider Unavail able Aditya Lucero MD Primary Care Provider [phone] Mick Vidal MD Primary Care Provider Regina vailable Reason for Visit * Reason Onset Date Comments VNA Call 02/07/2015 edgar blancoa Encounter Details Date Type Department Care Team Description 02/07/2015 Telephone Adult Medicine - [facility] [address] [place] [address] Osiel Gann MD VNA Call (edgar peña vna) Social History Tobacco Use Types Packs/Day Years [...] encounter Miscellaneous Notes * Telephone Encounter - Nahomy Tamayo L.P.N. - 02/07/2015 4:53 PM EDT Letter set up to be printed and signed Then fax to number below * Telephone Encounter - Kasey Mcnair - 02/07/2015 3:24 PM EDT VNA CALL Which VNA office is calling? Edgar peña Full name of caller: Elida The caller is An Occupational Therapist Is the caller at the patients home?: YES Reason for call: the OT Elida is calling needs a medical necessity letter for a half lap tray for the patients wheelchair, so that the patient can position her arms. Please call when letter is completed so that she document it in her system. Does caller need an urgent call back? YES Was CONTACT Telephone # obtained above?: YES Fax #: [facility] [phone] attn: [email or web address] documented in this encounter Plan of Treatment Not on file documented as of this encounter Visit Diagnoses Not on filedocumented in this encounter Care Teams Vice President Lending Relationship Specialty Start Date End Date Osiel Gann MD PCP - General 03/10/02 06/16/17 Aditya Lucero MD [address] [place] [address] PCP - General Internal Medicine 06/17/17 10/17/21 Mick Vidal MD [address] [place] [id number] PCP - General Internal Medicine 10/18/21 documented as of this encounter
--- OUTSIDE RECORDS SUMMARY | 2025-02-22 16:27 | XMS_ITS | Clinical Summary ---
Author Organization [facility] Address [address] [place] [address] Care Team Providers Care Machining Technician Name Role Phone Mick Vidal MD Primary Care Provider [phone] Surgical History Surgery Date Site/Laterality Comments OTHER [...] 2016 OTHER SURGICAL HISTORY 12/2016 N/A PROCEDURE: MD TOTAL ABDOMINAL HYSTERECT W/WO RMVL TUBE OVARY; COMMENT: Sites. 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 07/07/2006 DX:Tube rculin test reaction Fibroid, uterine 06/17/2007 DX:Fibroid, zuni rine History of CVA (cerebrovascu lar accident) [...] Panel) 06/28/2022 Colorectal Cancer Screening: Colonoscopy 06/28/2022 HIV Screening 06/28/2022 Hepatitis C Screening 06/28/2022 Social Influencers of Health Screening 06/28/2022 Diabetes: Annual Urine Albumin-Creatinine Ratio (uACR) 07/02/2022 Diabetes: Blood Sugar Control Test (HGBA1C) 07/02/2022 DTaP,Tdap,and Td Vaccines (2 - Td or Tdap) 01/24/2023 01/24/2013 Breast Cancer Screening 09/24/2023 09/24/19 22, 09/17/2020, 08/31/2019, Additional history exists COVID-19 Vaccine ( season) 2024 Depression Screening 07/20/2024 Influenza Vaccine (#1) 2025 0, 04/21/2018, 05/06/2017, Additional history exists HIB Vaccines Aged Out No longer eligi [...] Routine screening. No current breast complaints. Family history of breast cancer in grandmother. History of left [...] distortion identified. Stable typically benign parenchymal asymmetries. Stable multiple masses. LEFT: No suspicious masses, groups of microcalcifications or areas of architectural distortion identified. Stable typically benign parenchymal asymmetries. Retroareolar postoperative changes and mirian. IMPRESSION: : [...] Recently Relevant to Health Maintenance Care Teams Machining Technician Relationship Specialty Start Date End Date Mick Vidal MD [address] [place] [address] PCP - General Internal Medicine 10/18/21
--- OUTSIDE RECORDS SUMMARY | 2025-02-22 16:27 | XMS_ITS | Clinical Summary ---
Author Organization [facility] Address [address] [facility] [address] [place] [address] Phone Care Team Providers Care Physical Science Technician Name Role Phone Stephanie García MD Primary Care Provider [phone] Allergies Active Allergy Reactions Criticality Noted Date Comments Erythromycin 08/19/2022 Latex 08/19/2022 Penicillins 08/19/2022 Medications lamoTRIgine (LaMICtal) 150 MG tablet Take 150 mg by mouth in the morning and 150 mg in the evening. 2 Active levETIRAcetam (KEPPRA) 1000 MG tablet Take 1,000 mg by mouth 3 Active aspirin 325 MG tablet Take 325 mg by mouth every other day Active Multiple Vitamin (multivitamin) tablet Take 1 tablet by mouth 1 (one) time each day Active lisinopril 2.5 MG tablet take 1 tablet orally daily for 90 days Active Ozempic, 1 MG/DOSE, 4 MG/3ML solution pen-injector inject 1 mg (0.75 ml) subcutaneously weekly 5 Active pantoprazole (PROTONIX) 40 MG EC tablet Take 40 mg by mouth 1 (one) time each day 5 Active rosuvastatin (CRESTOR) 40 MG tablet Take 40 mg by mouth 1 (one) time each day 5 Active Active Problems Problem Noted Date Diagnosed Date Proteinuria, not otherwise specified 01/18/2025 Chronic kidney disease, stage 2 (mild) 3 [...] Overview (10/07/2022): effexor and neurontin started at [facility] and were stopped due to ? 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 07/07/2006 Overview (10/07/2022): Rxd; [place] IMO update Iron deficiency anemia 03/17/2006 Unspecified lump in unspecified breast 6 Encounters Date Type Department Care Team Description 01/18/2025 3:45 PM EDT Office Visit [facility] [address] [address] Gianna Mart ARNP Chronic kidney disease, stage 2 (mild) (Primary Dx); Proteinuria, not otherwise specified; Microscopic hematuria from Last 3 Months Family History Medical [...] Sign Reading Time Taken Comments Blood Pressure 106/80 01/18/2025 4:07 PM EDT Pulse 85 01/18/2025 4:07 PM EDT Temperature - - Respiratory Rate - - Oxygen Saturation 99% 01/18/2025 4:07 PM EDT Inhaled Oxygen Concentration - - Weight 77.1 kg (170 lb) 01/18/2025 4:07 PM EDT Height 165.1 cm (5' 5 ) 01/13/2023 2:07 PM EDT Body Mass Index 28.29 01/13/2023 2:07 PM EDT Plan of Treatment Upcoming Encounters Date Type Department Care Team (Late st Contact Info) Description 01/17/2026 3:45 PM EDT Office [facility] [address] [phone] Gianna Mart ARNP [address] [address] Health Maintenance Due Date Last [...] Visual Foot Exam 08/19/2022 Influenza Vaccine (#1) 2025 0, 04/21/2018, 05/06/2017, Additional history exists Pneumococcal Vaccine: Peds ( 0 to 5 Years) and At-Risk Patients (6 to 49 Years) Discontinued 05/06/2017 Procedures Procedure Name Priority Date/Time Associated Diagnosis Comments IRON PANEL (FE, TIBC, TSAT) Routine 01/26/2025 3:08 PM EDT Chronic kidney disease, stage 2 (mild) Microscopic hematuria Type 2 diabetes mellitus, not otherwise specified (HCC) FERRITIN Routine 01/26/2025 3:08 PM EDT Chronic kidney disease, stage 2 (mild) Microscopic hematuria Type 2 diabetes mellitus, not otherwise specified (HCC) VITAMIN D 25 HYDROXY Routine 01/26/2025 3:08 PM EDT Chronic kidney disease, stage 2 (mild) Microscopic hematuria Type 2 diabetes mellitus, not otherwise specified (HCC) PROTEIN / CREATININE RATIO, URINE Routine 01/26/2025 3:08 PM EDT Chronic kidney disease, stage 2 (mild) Microscopic hematuria Type 2 diabetes mellitus, not otherwise specified (HCC) URINALYSIS WITH MICROSCOPIC Routine 01/26/2025 3:08 PM EDT Chronic kidney disease, stage 2 (mild) Microscopic hematuria Type 2 diabetes mellitus, not otherwise specified (HCC) RENAL FUNCTION PANEL Routine 01/26/2025 3:08 PM EDT Chronic kidney disease, stage 2 (mild) Microscopic hematuria Type 2 diabetes mellitus, not otherwise specified (HCC) PTH, INTACT Routine 01/26/2025 3:08 PM EDT Chronic kidney disease, stage 2 (mild) Microscopic hematuria Type 2 diabetes mellitus, not otherwise specified (HCC) CBC Routine 01/26/2025 3:08 PM EDT Chronic kidney disease, stage 2 (mild) Microscopic hematuria Type 2 diabetes mellitus, not otherwise specified (HCC) MICROSCOPIC EXAMINATION - DO NOT USE Routine 01/26/2025 3:08 PM EDT from Last 3 Months Results * (ABNORMAL) Microscopic Examination (01/26/2025 3:08 PM EDT) WBC, Urine 11-30(A) 0 - 5 /hpf [facility] RBC, Urine 3-10(A) 0 - 2 /hpf [facility] Squamous Epithelial, Urine >10(A) 0 - 10 /hpf [facility] Casts None seen None seen /lpf [facility] Crystals Present(A) N/A [facility] Crystal Type Calcium Oxalate N/A [facility] Bacteria, Urine Few None seen/Few [facility] 01/26/2025 3:08 PM EDT 01/26/2025 Gianna Mart [facility] LAB MICROBIOLOGY - GENERAL ORDERABLES Final Result [facility] [address] [place] [address] * Iron Panel (Fe, TIBC, TSAT) (01/26/2025 3:08 PM EDT) Pathologist [facility] TIBC 301 250 - 450 ug/dL [facility] UIBC 241 131 - 425 ug/dL [facility] Iron 60 27 - 159 ug/dL [facility] Iron Saturation (TSat) 20 15 - 55 % [facility] Blood specimen (specimen) Venous blood / Unknown 01/26/2025 3:08 PM EDT 01/26/2025 [facility] LAB BLOOD ORDERABLES Final Result Performing Organization Address City/[facility]/ZIP Co de Phone Number [facility] [address] [place] [address] * (ABNORMAL) Urine Protein / creatinine ratio (01/26/2025 3:08 PM EDT) Creatinine, Ur 329.0 Not Estab. mg/dL [facility] Protein, Ur 138.8 Not Estab. mg/dL [facility] Urine Protein/Creati nine Ratio 422(H) 0 - 200 mg/g creat [facility] Urine specimen (specimen) Urine specimen obtained by clean catch procedure / Unknown 01/26/2025 3:08 PM EDT 01/26/2025 Gianna HARRISP LAB URINE ORDERABLES Final Result [facility] [address] [place] [address] * Vitamin D 25 hydroxy (01/26/2025 3:08 PM EDT) Vitamin D, 25-OH, Total 44.5 30.0 - 100.0 ng/mL [facility] Comment: Vitamin D deficiency has been defined by the [place] of Medicine and an Endocrine Society practice guideline as a level of serum 25-OH vitamin D less than 20 ng/mL (1,2). The Endocrine Society went on to further define vitamin D insufficiency as a level between 21 and 29 ng/mL (2). 1. IOM ([place] of Medicine). 2010. Dietary reference intakes for calcium and D. [place]: The National Academies Press. 2. Anthony MF, Pat NC, Aruna DOMINGUEZ, et al. Evaluation, treatment, and prevention of vitamin D deficiency: an Endocrine Society clinical practice guideline. JCEM. 2010; 96(7):1911-30. Blood specimen (specimen) Venous blood / Unknown 01/26/2025 3:08 PM EDT 01/26/2025 us Gianna HARRISP LAB BLOOD ORDERABLES Final Result [facility] [address] [place] [address] * (ABNORMAL) Urinalysis with microscopic (01/26/2025 3:08 PM EDT) Specific [place], Urine >=1.030(A) 1.005 - 1.030 [facility] pH Urine 5.5 5.0 - 7.5 [facility] [phone] Color, Urine Yellow Yellow [facility] Appearance Urine Cloudy(A) Clear [facility] WBC Esterase Urine 1+(A) Negative [facility] [phone] Protein, Ur 2+(A) Negative/Tra ce [facility] Glucose, Ur Negative Negative [facility] Ketones, Urine Trace(A) Negative [facility] [place] [phone] Blood Urine 2+(A) Negative [facility] Bilirubin Urine Negative Negative [facility] [place] Urobilinogen Urine 1.0 0.2 - 1.0 mg/dL [facility] Nitrite, Urine Negative Negative [facility] [place] Microscopic Examination See below: [facility] Comment:Microscopic was asher cated and was performed. Urine specimen (specimen) Urine specimen obtained by clean catch procedure / Unknown 01/26/2025 3:08 PM EDT 01/26/2025 Gianna Beckley [facility] LAB URINE ORDERABLES Final Result [facility] [address] [place] [address] * CBC (01/26/2025 3:08 PM EDT) WBC 7.4 3.4 - 10.8 x10E3/uL [facility] RBC 4.47 3.77 - 5.28 x10E6/uL [facility] Hemoglobin 13.2 11.1 - 15.9 g/dL [facility] Hematocrit 39.0 34.0 - 46.6 % [facility] MCV 87 79 - 97 fL [facility] MCH 29.5 26.6 - 33.0 pg [facility] MCHC 33.8 31.5 - 35.7 g/dL [facility] RDW 12.7 11.7 - 15.4 % [facility] Platelets 361 150 - 450 x10E3/uL [facility] Blood specimen (specimen) Venous blood / Unknown 01/26/2025 3:08 PM EDT 01/26/2025 [facility] LAB BLOOD ORDERABLES Final Result [facility] [address] [place] [address] * PTH, intact (01/26/2025 3:08 PM EDT) PTH 27 15 - 65 pg/mL [facility] Blood specimen (specimen) Venous blood / Unknown 01/26/2025 3:08 PM EDT 01/26/2025 [facility] LAB BLOOD ORDERABLES Final Result [facility] [address] [place] [address] * (ABNORMAL) Ferritin (01/26/2025 3:08 PM EDT) Ferritin 257(H) 15 - 150 ng/mL [facility] Blood specimen (specimen) Venous blood / Unknown 01/26/2025 3:08 PM EDT 01/26/2025 Gianna Mart [facility] LAB BLOOD ORDERABLES Final Result [facility] [address] [place] [address] * (ABNORMAL) Renal function panel (01/26/2025 3:08 PM EDT) Glucose 104(H) 70 - 99 mg/dL [facility] BUN 14 6 - 24 mg/dL [facility] Creatinine 0.90 0.57 - 1.00 mg/dL [facility] eGFR CKD-EPI CR 2020 77 >59 mL/min/1.7 3 [facility] BUN/Creatinine Ratio 16 9 - 23 [facility] Sodium 142 134 - 144 mmol/L [facility] Potassium 4.2 3.5 - 5.2 mmol/L [facility] Chloride 101 96 - 106 mmol/L [facility] Bicarbonate (CO2) 24 20 - 29 mmol/L [facility] Calcium 9.6 8.7 - 10.2 mg/dL [facility] Phosphorus 3.5 3.0 - 4.3 mg/dL [facility] Albumin 4.7 3.8 - 4.9 g/dL [facility] Blood specimen (specimen) Venous blood / Unknown 01/26/2025 3:08 PM EDT 01/26/2025 Gianna Barron BLACK LAB BLOOD ORDERABLES Final Result [facility] [address] [place] [phone] from Last 3 Months Insurance Medicare Medicaid [place] Medicare Medicaid [place] Care Teams Physical Science Technician Relationship Specialty Start Date End Date Stephanie García MD [address] [place] [address] PCP - General Internal Medicine 01/05/24
== END 2025-02-22 16:42 | disposition home or self-care (01) ==
LOC: HO.ENCR 16:08
PROVIDERS: Visit Provider Internal Medicine
DX: E11.29 Type 2 diabetes mellitus with other diabetic kidney complication (principal); R80.9 Proteinuria, unspecified

== ENCOUNTER 2025-02-23 15:29 | Outpatient (REF) | payer MEDICARE, MEDICAID, SELFPAY ==
--- OUTSIDE RECORDS SUMMARY | 2025-02-23 15:32 | XMS_ITS | Clinical Summary ---
Author Organization [facility] Address [address] [facility] [address] [place] [address] Phone Care Team Providers Care Senior Materials Planner Name Role Phone Stephanie García MD Primary Care Provider [phone] Allergies Active Allergy Reactions Criticality Noted Date [...] no shunt 03/23/15- AC management transferred to [facility]. 05/29/16- warfarin stopped per Neuro. On asa 81 mg daily. Seizure 02/08/2015 Overview (10/07/2022): effexor and neurontin started at [facility] and were stopped due to ? [...] Visit [facility] [address] [address] Gianna Mart ARNP Chronic kidney [...] Office [facility] [address] [phone] Gianna Mart ARNP [address] [address] Health Maintenance Due Date Last [...] Urine 11-30(A) 0 - 5 /hpf [facility] RBC, Urine 3-10(A) 0 - 2 /hpf [facility] Squamous Epithelial, Urine >10(A) 0 - 10 /hpf [facility] Casts None seen None seen /lpf [facility] Crystals Present(A) N/A [facility] Crystal Type Calcium Oxalate N/A [facility] Bacteria, Urine Few None seen/Few [facility] 01/26/2025 3:08 PM EDT 01/26/2025 Gianna Mart [facility] LAB MICROBIOLOGY - GENERAL ORDERABLES Final Result [facility] [address] [place] [address] * Iron Panel (Fe, TIBC, TSAT) (01/26/2025 3:08 PM EDT) Pathologist [facility] TIBC 301 250 - 450 ug/dL [facility] UIBC 241 131 - 425 ug/dL [facility] Iron 60 27 - 159 ug/dL [facility] Iron Saturation (TSat) 20 15 - 55 % [facility] Blood specimen (specimen) Venous blood / Unknown 01/26/2025 3:08 PM EDT 01/26/2025 [facility] LAB BLOOD ORDERABLES Final Result Performing Organization Address City/[facility]/ZIP Co de Phone Number [facility] [address] [place] [address] * (ABNORMAL) Urine Protein / creatinine ratio (01/26/2025 3:08 PM EDT) Creatinine, Ur 329.0 Not Estab. mg/dL [facility] Protein, Ur 138.8 Not Estab. mg/dL [facility] Urine Protein/Creati nine Ratio 422(H) 0 - 200 mg/g creat [facility] Urine specimen (specimen) Urine specimen obtained by clean catch procedure / Unknown 01/26/2025 3:08 PM EDT 01/26/2025 Gianna HARRISP LAB URINE ORDERABLES Final Result [facility] [address] [place] [address] * Vitamin D 25 hydroxy (01/26/2025 3:08 PM EDT) Vitamin D, 25-OH, Total 44.5 30.0 - 100.0 ng/mL [facility] Comment: Vitamin D deficiency has been defined by the [place] of Medicine and an Endocrine Society practice guideline as a level of serum 25-OH vitamin D less than 20 ng/mL (1,2). The Endocrine Society went on to further define vitamin D insufficiency as a level between 21 and 29 ng/mL (2). 1. IOM ([place] of Medicine). 2010. Dietary reference intakes for [...] LAB BLOOD ORDERABLES Final Result [facility] [address] [place] [address] * (ABNORMAL) Urinalysis with microscopic (01/26/2025 3:08 PM EDT) Specific [place], Urine >=1.030(A) 1.005 - 1.030 [facility] pH Urine 5.5 5.0 - 7.5 [facility] Color, Urine Yellow Yellow [facility] Appearance Urine Cloudy(A) Clear [facility] [place] WBC Esterase Urine 1+(A) Negative [facility] [phone] Protein, Ur 2+(A) Negative/Tra ce [facility] Glucose, Ur Negative Negative [facility] Ketones, Urine Trace(A) Negative [facility] [place] [phone] Blood Urine 2+(A) Negative [facility] Bilirubin Urine Negative Negative [facility] [place] [phone] Urobilinogen Urine 1.0 0.2 - 1.0 mg/dL [facility] Nitrite, Urine Negative Negative [facility] [place] Microscopic Examination See below: [facility] Comment:Microscopic was asher cated and was performed. Urine specimen (specimen) Urine specimen obtained by clean catch procedure / Unknown 01/26/2025 3:08 PM EDT 01/26/2025 Gianna [facility] LAB URINE ORDERABLES Final Result [facility] [address] [place] [address] * CBC (01/26/2025 3:08 PM EDT) WBC 7.4 3.4 - 10.8 x10E3/uL [facility] RBC 4.47 3.77 - 5.28 x10E6/uL [facility] Hemoglobin 13.2 11.1 - 15.9 g/dL [facility] Hematocrit 39.0 34.0 - 46.6 % [facility] MCV 87 79 - 97 fL [facility] MCH 29.5 26.6 - 33.0 pg [facility] MCHC 33.8 31.5 - 35.7 g/dL [facility] RDW 12.7 11.7 - 15.4 % [facility] Platelets 361 150 - 450 x10E3/uL [facility] Blood specimen (specimen) Venous blood / Unknown 01/26/2025 3:08 PM EDT 01/26/2025 [facility] LAB BLOOD ORDERABLES Final Result [facility] [address] [place] [address] * PTH, intact (01/26/2025 3:08 PM EDT) PTH 27 15 - 65 pg/mL [facility] Blood specimen (specimen) Venous blood / Unknown 01/26/2025 3:08 PM EDT 01/26/2025 [facility] LAB BLOOD ORDERABLES Final Result [facility] [address] [place] [address] * (ABNORMAL) Ferritin (01/26/2025 3:08 PM EDT) Ferritin 257(H) 15 - 150 ng/mL [facility] Blood specimen (specimen) Venous blood / Unknown 01/26/2025 3:08 PM EDT 01/26/2025 Gianna Mart [facility] LAB BLOOD ORDERABLES Final Result [facility] [address] [place] [address] * (ABNORMAL) Renal function panel (01/26/2025 3:08 PM EDT) Glucose 104(H) 70 - 99 mg/dL [facility] BUN 14 6 - 24 mg/dL [facility] Creatinine 0.90 0.57 - 1.00 mg/dL [facility] eGFR CKD-EPI CR 2020 77 >59 mL/min/1.7 3 [facility] BUN/Creatinine Ratio 16 9 - 23 [facility] Sodium 142 134 - 144 mmol/L [facility] Potassium 4.2 3.5 - 5.2 mmol/L [facility] Chloride 101 96 - 106 mmol/L [facility] Bicarbonate (CO2) 24 20 - 29 mmol/L [facility] Calcium 9.6 8.7 - 10.2 mg/dL [facility] Phosphorus 3.5 3.0 - 4.3 mg/dL [facility] Albumin 4.7 3.8 - 4.9 g/dL [facility] Blood specimen (specimen) Venous blood / Unknown 01/26/2025 3:08 PM EDT 01/26/2025 Gianna Barron BLACK LAB BLOOD ORDERABLES Final Result [facility] [address] [place] [phone] from Last 3 Months Insurance Medicare Medicaid [place] Medicare Medicaid [place] Care Teams Senior Materials Planner Relationship Specialty Start Date End Date Stephanie García MD [address] [place] [address] PCP - General Internal Medicine 01/05/24
--- OUTSIDE RECORDS SUMMARY | 2025-02-23 15:32 | XMS_ITS | Clinical Summary ---
Author Organization [facility] Address [address] [place] [address] Care Team Providers Care Resourcing Advisor Name Role Phone Mick Vidal MD Primary Care Provider [phone] Surgical History Surgery Date Site/Laterality Comments OTHER [...] 2016 OTHER SURGICAL HISTORY 12/2016 N/A PROCEDURE: [place] TOTAL ABDOMINAL HYSTERECT W/WO RMVL TUBE OVARY; COMMENT: Sites. 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
--- OUTSIDE RECORDS SUMMARY | 2025-02-23 15:32 | XMS_ITS | Clinical Summary ---
Author Organization [facility] Address [address] [place] [address] Phone Care Team Providers Care Inspector Balance Bridge Name Role Phone Estephania Padilla NP Primary Care Provider [phone] Allergies Active Allergy Reactions Criticality Noted Date [...] Type Department Care Team Description 02/12/2025 Refill [facility] Neurology [address] [place] [address] Prem Carrillo MD Medication Refill from Last [...] Description 03/27/2025 1:00 PM EDT Office Visit [facility] Neurology [address] [place] [address] Prem Carrillo MD [address] [facility] [place] [address] [email or web address] Health Maintenance Due Date Last Done Comments [...] EST) SODIUM 135 133 - 146 mmol/L [facility] CHLORIDE 100 96 - 108 mmol/L [facility] POTASSIUM 4.1 3.3 - 5.1 mmol/L [facility] CO2 26 21 - 35 mmol/L [facility] BUN 11 6 - 19 mg/dL [facility] CREATININE 0.80 0.5 - 1.5 mg/dL [facility] GLUCOSE 158(H) 70 - 99 mg/dL [facility] CALCIUM 9.3 8.4 - 10.3 mg/dL [facility] EGFR 90 >59 mL/min/1.7 3m2 [facility] Comment:Estimated glomerular filtration rate calculated using the CKD-EPI refit equation. ANION GAP 13 10 - 20 mmol/L [facility] Blood 07/05/2021 12:3 1 PM EST 07/05/2021 12:45 PM EST us Giuliana Krishnan PA-C LAB BLOOD ORDERABLES Fi nal Result [address] [address] from Last 3 Months or Most Recently [...] B [place] A & B [facility] Care Teams Inspector Balance Bridge Relationship Specialty Start Date End Date Estephania Padilla NP [address] [facility] [address] [place] [address] PCP - General 07/01/22 Additional Source Comments The information contained in this document represents components of the legal health record. It is not the complete legal health record.[facility]
== END 2025-02-23 15:30 | disposition home or self-care (01) ==
LOC: HO.MAMMO 15:29
PROVIDERS: Visit Provider Internal Medicine
DX: Z12.31 Encounter for screening mammogram for malignant neoplasm of breast (principal)
CPT/HCPCS: 77063; 77067

== ENCOUNTER → 2025-02-23 15:30 | Outpatient (BNV) | payer MEDICARE, MEDICAID, SELFPAY | PROVIDERS: Visit Provider Radiology Body Imaging | DX: Z12.31 Encounter for screening mammogram for malignant neoplasm of breast (principal) | CPT/HCPCS: 77063; 77067 ==

== ENCOUNTER 2025-03-08 12:25 | Outpatient (AMB) | payer MEDICARE, MEDICAID, SELFPAY ==
[2025-03-08 12:34] VITALS: BP 118/68; PULSE 85; RESP 16; TEMP 36.3; O2SAT 97; BMI 29.1
--- NOTE | 2025-03-08 12:34 | A.OFFPC_ITS ---
Vital Signs 03/08/25 12:34 Height 5 ft 4 in Weight 169 lb 6 oz BMI 29.1 BP 118/68 Blood Pressure Location Lt brachial Position Sitting Respiration 16 Pulse 85 Pulse Source Pulse Oximeter Temp 97.3 F Temp Source Temporal Artery Scan Pulse Oximetry (%) 97 Oxygen Delivery Method Room Air Intake Visit Reasons: Needs to discuss immigration paperwork Edge Stripper Required: No Accompanied by: Sister Allergies dulaglutide (From Trulicity) Allergy (Intermediate, Verified 03/08/25 12:52) pruritus, swelling latex (LATEX) Allergy (Intermediate, Verified 03/08/25 12:52) Hives erythromycin base (ERYTHROMYCIN BASE) Allergy (Unknown, Verified 03/08/25 12:52) UNKNOWN Penicillins (PENICILLINS) Allergy (Unknown, Verified 03/08/25 12:52) UNKNOWN metformin Adverse Reaction (Intermediate, Uncoded 03/08/25 12:52) abdominal discomfort Medication List - Last Reconciled 03/08/25 by Stephanie Phipps MD aspirin (Aspir-Siri) 325 mg PO DAILY blood-glucose meter (Accu-Chek Cindy Plus Meter) As directed blood-glucose meter (FreeStyle Lite Meter kit) As directed checks 1 X/day flash glucose scanning reader (FreeStyle Jolene 2 [place]) As directed flash glucose sensor (FreeStyle Jolene 2 Sensor kit) As directed FreeStyle Lite Strips (blood sugar diagnostic) As directed checks 1 X/day NS lamotrigine 150 mg PO BID 90 days lancets (FreeStyle Lancets) As directed checks 1 X/day levetiracetam 1,000 mg PO BID lidocaine 5% 1 patch topical DAILY lisinopril 2.5 mg PO DAILY 90 days multivitamin (One-A-Day Essential tablet) 1 tab PO DAILY Ozempic (semaglutide) 1 mg (0.75 mL) subcut QWEEK NS pantoprazole 40 mg PO DAILY polyethylene glycol 3350 (Miralax) 17 grams PO DAILY rosuvastatin 40 mg PO DAILY 90 days tizanidine 2 mg PO Q8H PRN Tobacco use date assessed: 03/08/25 Dental Screening Dental Screen Date: 03/08/25 Did you have a dental visit in the last 12 months?: Yes Did you have a dental problem in the last 6 months where you did not have access to dental care?: No Was dental information given to patient?: Patient has dentist HPI HPI Comments History of Present Illness Details The patient is a 55-year-old female presenting for a follow-up visit to manage multiple chronic conditions including hypertension, seizure disorder, and diabetes mellitus. The patient has a history of hypertension, which is currently well-controlled with lisinopril 2.5 mg daily. She also has a seizure disorder managed with lamotrigine and levetiracetam, with no recent seizures reported. Her type 2 diabetes mellitus is managed with Ozempic 1 mg weekly, and her recent HbA1c was 6.4%, indicating good control. She is also on rosuvastatin 40 mg for hyperlipidemia. The patient has a history of a stroke in 2015, resulting in right hemiplegia and aphasia. She uses a brace for stability and walks with a cane on the left side. She experiences gastroesophageal reflux disease, managed with pantoprazole, and constipation, for which she uses MiraLAX as needed. She reports mild major depressive disorder, with no current psychiatric follow-up but sees a family therapist. [facility] Medical History (Updated 03/08/25 @ 21:09 by Stephanie Phipps MD) Microalbuminuria due to type 2 diabetes mellitus Mild aphasia CVA (cerebral vascular accident) Diabetes Seizures Elevated cholesterol Hypertension Ecchymosis Encounter to establish care Hx of cyst of breast Surgical History Hx of colonoscopy History of partial hysterectomy History of thyroid surgery Family History Mother Bone cancer Hypertension Diabetes Father Diabetes Hypertension Maternal Aunt Breast cancer, Onset Age: 49 Family/Other Mental health disorder Social History Housing: Apartment Alcohol intake: never Patient Tobacco Use Status: Never used Tobacco e-Cigarette/Vaping Use: Never Used Second Hand Smoke Exposure: No service: No Current occupational status: unemployed Cognitive needs: Yes (cane ) Hearing needs: No Vision needs: Yes (glasses) Female Reproductive History Menstrual Age of Menarche: 12 Questionnaire PHQ-9 Over the last 2 weeks, how often have you been bothered by any of the following problems? 1. Little interest or pleasure in doing things: not at all 2. Feeling down, depressed, or hopeless: not at all 3. Trouble falling or staying asleep, or sleeping too much: not at all 4. Feeling tired or having little energy: several days 5. Poor appetite or overeating: not at all 6. Feeling bad about yourself - or that you are a failure or have let yourself or your family down: not at all 7. Trouble concentrating on things, such as reading the newspaper or watching television: several days 8. Moving or speaking so slowly that other people could have noticed. Or the opposite - being so fidgety or restless that you have been moving around a lot more than usual: several days 9. Thoughts that you would be better off or of hurting yourself in some way: not at all Total score: 3 Depression Screening Interpretation: Positive Depression Screening Follow-up: Existing condition and Follow-up Visit Requested Depression Screening Done: Yes 77001 - PHQ-9 Billing: Yes Source: Developed by Drs. Lamont Beltrán, Pati Jaimes, Bebeto Jerry and colleagues, with an educational lorena from [employer]. Thrive Questionnaire Date Thrive assessed: 03/06/25 I am a: Patient What is your living situation today?: I have a steady place to live Within the past 12 months, did the food you bought not last and you didn't have the money to get more?: Sometimes True Within the past 12 months, did you worry whether your food would run out before you got money to buy more?: Often true Do you have trouble paying for medicines?: No Do you have trouble getting transportation to medical appointments?: No Do you have trouble paying your heating and electricity bill?: Yes Do you have trouble taking care of your child, family member or friend?: No Do you have trouble with day-to-day activities such as bathing, preparing meals, shopping, managing finances, etc.?: No Are you currently unemployed and looking for a job?: I choose not to answer this question Are you interested in more education?: I choose not to answer this question Please select the resources that you would like help with: Housing/[facility], Food and Utilities Currently or been in a relationship where the following occur: I choose not to answer THRIVE Score: 3 AUDIT C Alcohol Use Questionnaire (AUDIT-C) 1. How often do you have a drink containing alcohol?: Never 3. How often do you have six or more drinks on one occasion?: Never Total Score: 0 Score Reviewed/Action Taken: No RAMESH-7 AMB Questionnaire RAMESH-7 Date RAMESH - 7 assessed: 09/28/24 Feeling nervous, anxious, or on edge: 1 = Several days Not being able to stop or control worryin = Not at all Worrying too much about different things: 1 = Several days Trouble relaxin = Several days Being so restless that it is hard to sit still: 0 = Not at all Becoming easily annoyed or irritable: 2 = More than half the days Feeling afraid as if something awful might happen: 1 = Several days Total RAMESH-7 score (0-4 normal; 5-9 mild; 10-14 moderate; 15-21 severe): 6 Source: Developed by Drs. Lamont Beltrán, Pati Jaimes, Bebeto Jerry and colleagues, with an educational lorena from [employer]. RAMESH-7 Assessment Billing RAMESH-7 Assessment Tool: RAMESH-7 Assessment 06668 Review of Systems Const All systems reviewed & are unremarkable except as noted in HPI and below Card Denies chest pain at rest, Denies chest pain with activity, Denies edema, Denies irregular heart rhythm, Denies claudication, Denies dyspnea, Denies dyspnea on exertion, Denies orthopnea, Denies paroxysmal nocturnal dyspnea and Denies slow heart rate Resp Denies cough, Denies dyspnea and Denies dyspnea on exertion Physical exam (Primary Care) Vital Signs: Last Vital Signs Temp 97.3 F 03/08/25 12:34 Pulse 85 03/08/25 12:34 Resp 16 03/08/25 12:34 BP 118/68 03/08/25 12:34 Pulse Ox 97 03/08/25 12:34 Oxygen Delivery Method Room Air 03/08/25 12:34 BMI result Body Mass Index 29.1 Tobacco/Smoking Status: Tobacco use Status Tobacco use date assessed 03/08/25 03/08/25 12:39 Patient Tobacco Use Status Never used Tobacco 03/08/25 12:35 e-Cigarette/Vaping Use Never Used 03/08/25 12:35 PHQ-9: PHQ-9 Score PHQ-9: Total score 3 03/08/25 12:59 Depression Screening Interpretation: Positive Depression Screening Follow-up: Existing condition and Follow-up Visit Requested Thrive Assessment: Date of Thrive Assessment Date Thrive assessed 03/06/25 03/08/25 12:35 Currently or been in a relationship where the following occur: I choose not to answer Const Limitations: ambulation with cane Resp Effort & Inspection: normal respiratory effort Auscultation: clear to auscultation bilaterally Cardio Jugular venous distension: no JVD Rate: regular rate Rhythm: regular rhythm Heart sounds: S1 normal heart sound present and S2 normal heart sound present Coding Level of Care Code Est Pt Level 4 (29425) Complex EM visit Add On G2211 Diagnoses Type 2 diabetes mellitus with hyperglycemia, without long-term current use of insulin E11.65 Diabetes mellitus type: type 2 Diabetes mellitus shelter insulin use: without extermination supervisor use Diabetes mellitus complication status: with hyperglycemia CVA (cerebral vascular accident) I63.9 Hemiparesis as late effect of cerebrovascular disease, unspecified cerebrovasc ular disease type, unspecified laterality I69.959 Hemiparesis etiology: late effect of cerebrovascular disease Cerebrovascular disease type: unspecified Hemiparesis laterality: unspecified Seizures R56.9 Persistent headaches R51.9 Hyperlipidemia E78.5 Hypertension I10 Mild aphasia R47.01 Additional Codes RAMESH-7 Assessment Billing - RAMESH-7 Assessment Tool: RAMESH-7 Assessment 56648 ([id number]) PHQ-9 - 70344 - PHQ-9 Billing: Yes ([id number]) Time Spent (min) 23 Assessment & Plan Assessment & Plan (1) Diabetes mellitus: Code(s): E11.9 - Type 2 diabetes mellitus without complications Category: Medical Qualifiers: Diabetes mellitus type: type 2 Diabetes mellitus extermination supervisor insulin use: without shelter use Diabetes mellitus complication status: with hyperglycemia Qualified Code(s): E11.65 - Type 2 diabetes mellitus with hyperglycemia (2) CVA (cerebral vascular accident): Comment: 2014 Code(s): I63.9 - Cerebral infarction, unspecified Category: Medical (3) Hemiparesis: Comment: Right-sided after CVA 11/2014 Code(s): G81.90 - Hemiplegia, unspecified affecting unspecified side Category: Medical Qualifiers: Hemiparesis etiology: late effect of cerebrovascular disease Cerebrovascular disease type: unspecified Hemiparesis laterality: unspecified Qualified Code(s): I69.959 - Hemiplegia and hemiparesis following unspecified cerebrovascular disease affecting unspecified side (4) Seizures: Code(s): R56.9 - Unspecified convulsions Category: Medical (5) Persistent headaches: Code(s): R51.9 - Headache, unspecified Category: Medical (6) Hyperlipidemia: Code(s): E78.5 - Hyperlipidemia, unspecified Category: Medical (7) Hypertension: Code(s): I10 - Essential (primary) hypertension Category: Medical (8) Mild aphasia: Code(s): R47.01 - Aphasia Category: Medical Plan The patient will continue her current medication regimen for hypertension, seizure disorder, and diabetes mellitus, as these conditions are well- controlled. An MRI of the brain will be ordered to assess any changes post- stroke, given the patient's history of right hemiplegia and aphasia. For her gastroesophageal reflux disease, she will continue pantoprazole, and for constipation, she will use MiraLAX as needed. The patient is advised to maintain her current therapy for mild depression and continue seeing her family therapist. Follow-up is scheduled for March with fasting labs to monitor her diabetes and other conditions. Patient was informed and verbally consented to the use of an ambient scribe for clinic note documentation during this visit. Orders: Orders Lipid Panel Today E78.5 - Hyperlipidemia, unspecified Microalbumin, Random (w Creat) Today R80.9 - Proteinuria, unspecified Comprehensive [place]. Panel Fast Today E11.65 - Type 2 diabetes mellitus with hyperglycemia MR head/brain wo con Today I63.9 - Cerebral infarction, unspecified, I69.959 - Hemiplegia and hemiparesis following unspecified cerebrovascular disease affecting unspecified side, R51.9 - Headache, unspecified Vitamin D 25-OH Total Today E55.9 - Vitamin D deficiency, unspecified
--- OUTSIDE RECORDS SUMMARY | 2025-03-08 13:22 | XMS_ITS | Clinical Summary ---
Author Organization [facility] Address [address] [place] [address] Phone Care Team Providers Care Apartment Leasing Agent Name Role Phone Estephania Padilla NP Primary Care Provider [phone] Allergies Active Allergy Reactions Criticality Noted Date [...] Type Department Care Team Description 02/12/2025 Refill [facility] Neurology [address] [place] [address] Prem Carrillo MD Medication Refill from Last [...] Description 03/27/2025 1:00 PM EDT Office Visit [facility] Neurology [address] [place] [address] Prem Carrillo MD [address] [facility] [place] [address] [email or web address] Health Maintenance Due Date Last Done Comments [...] EST) SODIUM 135 133 - 146 mmol/L [facility] CHLORIDE 100 96 - 108 mmol/L [facility] POTASSIUM 4.1 3.3 - 5.1 mmol/L [facility] CO2 26 21 - 35 mmol/L [facility] BUN 11 6 - 19 mg/dL [facility] CREATININE 0.80 0.5 - 1.5 mg/dL [facility] GLUCOSE 158(H) 70 - 99 mg/dL [facility] CALCIUM 9.3 8.4 - 10.3 mg/dL [facility] EGFR 90 >59 mL/min/1.7 3m2 [facility] Comment:Estimated glomerular filtration rate calculated using the CKD-EPI refit equation. ANION GAP 13 10 - 20 mmol/L [facility] Blood 07/05/2021 12:3 1 PM EST 07/05/2021 12:45 PM EST us Giuliana Krishnan PA-C LAB BLOOD ORDERABLES Fi nal Result [address] [address] from Last 3 Months or Most Recently [...] B [place] PART A & B [facility] Care Teams Apartment Leasing Agent Relationship Specialty Start Date End Date Estephania Padilla NP [address] [place] [address] PCP - General 07/01/22 Additional Source Comments The information contained in this document represents components of the legal health record. It is not the complete legal health record.[facility]
--- OUTSIDE RECORDS SUMMARY | 2025-03-08 13:22 | XMS_ITS | Clinical Summary ---
Author Organization [facility] Address [address] [place] [address] Phone Care Team Providers Care Fern Cutter Name Role Phone Stephanie García MD Primary Care Provider [phone] Allergies Active Allergy Reactions Criticality Noted Date [...] no shunt 03/23/15- AC management transferred to [facility]. 05/29/16- warfarin stopped per Neuro. On asa 81 mg daily. Seizure 02/08/2015 Overview (10/07/2022): effexor and neurontin started at [facility] and were stopped due to ? [...] Visit [facility] [address] [address] Gianna Mart ARNP Chronic kidney [...] Office Visit [facility] [address] [phone] Gianna Mart ARNP [address] [address] Health Maintenance Due Date Last [...] Urine 11-30(A) 0 - 5 /hpf [facility] RBC, Urine 3-10(A) 0 - 2 /hpf [facility] Squamous Epithelial, Urine >10(A) 0 - 10 /hpf [facility] Casts None seen None seen /lpf [facility] Crystals Present(A) N/A [facility] Crystal Type Calcium Oxalate N/A [facility] Bacteria, Urine Few None seen/Few [facility] 01/26/2025 3:08 PM EDT 01/26/2025 Gianna Mart [facility] LAB MICROBIOLOGY - GENERAL ORDERABLES Final Result [facility] [address] [place] [address] * Iron Panel (Fe, TIBC, TSAT) (01/26/2025 3:08 PM EDT) Pathologist [facility] TIBC 301 250 - 450 ug/dL [facility] UIBC 241 131 - 425 ug/dL [facility] Iron 60 27 - 159 ug/dL [facility] Iron Saturation (TSat) 20 15 - 55 % [facility] Blood specimen (specimen) Venous blood / Unknown 01/26/2025 3:08 PM EDT 01/26/2025 [facility] BLOOD ORDERABLES Final Result Performing Organization Address City/[facility]/ZIP Co de Phone Number [facility] [address] [place] [address] * (ABNORMAL) Urine Protein / creatinine ratio (01/26/2025 3:08 PM EDT) Creatinine, Ur 329.0 Not Estab. mg/dL [facility] Protein, Ur 138.8 Not Estab. mg/dL [facility] Urine Protein/Creati nine Ratio 422(H) 0 - 200 mg/g creat [facility] Urine specimen (specimen) Urine specimen obtained by clean catch procedure / Unknown 01/26/2025 3:08 PM EDT 01/26/2025 Gianna [facility]ISP LAB URINE ORDERABLES Final Result [facility] [address] [place] [address] * Vitamin D 25 hydroxy (01/26/2025 3:08 PM EDT) Vitamin D, 25-OH, Total 44.5 30.0 - 100.0 ng/mL [facility] Comment: Vitamin D deficiency has been defined by the [place] of Medicine and an Endocrine Society practice guideline as a level of serum 25-OH vitamin D less than 20 ng/mL (1,2). The Endocrine Society went on to further define vitamin D insufficiency as a level between 21 and 29 ng/mL (2). 1. IOM ([place] of Medicine). 2010. Dietary reference intakes for [...] LAB BLOOD ORDERABLES Final Result [facility] [address] [place] [address] * (ABNORMAL) Urinalysis with microscopic (01/26/2025 3:08 PM EDT) Specific [place], Urine >=1.030(A) 1.005 - 1.030 [facility] pH Urine 5.5 5.0 - 7.5 [facility] Color, Urine Yellow Yellow [facility] Appearance Urine Cloudy(A) Clear [facility] [phone] WBC Esterase Urine 1+(A) Negative [facility] [phone] Protein, Ur 2+(A) Negative/Tra ce [facility] Glucose, Ur Negative Negative [facility] Ketones, Urine Trace(A) Negative [facility] [phone] Blood Urine 2+(A) Negative [facility] Bilirubin Urine Negative Negative [facility] Urobilinogen Urine 1.0 0.2 - 1.0 mg/dL [facility] Nitrite, Urine Negative Negative [facility] Microscopic Examination See below: [facility] [phone] Comment:Microscopic was asher cated and was performed. Urine specimen (specimen) Urine specimen obtained by clean catch procedure / Unknown 01/26/2025 3:08 PM EDT 01/26/2025 Gianna [facility] LAB URINE ORDERABLES Final Result [facility] [address] [place] [address] * CBC (01/26/2025 3:08 PM EDT) WBC 7.4 3.4 - 10.8 x10E3/uL [facility] RBC 4.47 3.77 - 5.28 x10E6/uL [facility] Hemoglobin 13.2 11.1 - 15.9 g/dL [facility] Hematocrit 39.0 34.0 - 46.6 % [facility] MCV 87 79 - 97 fL [facility] MCH 29.5 26.6 - 33.0 pg [facility] MCHC 33.8 31.5 - 35.7 g/dL [facility] RDW 12.7 11.7 - 15.4 % [facility] Platelets 361 150 - 450 x10E3/uL [facility] Blood specimen (specimen) Venous blood / Unknown 01/26/2025 3:08 PM EDT 01/26/2025 [facility] LAB BLOOD ORDERABLES Final Result [facility] [address] [place] [address] * PTH, intact (01/26/2025 3:08 PM EDT) PTH 27 15 - 65 pg/mL [facility] Blood specimen (specimen) Venous blood / Unknown 01/26/2025 3:08 PM EDT 01/26/2025 [facility] LAB BLOOD ORDERABLES Final Result [facility] [address] [place] [address] * (ABNORMAL) Ferritin (01/26/2025 3:08 PM EDT) Ferritin 257(H) 15 - 150 ng/mL [facility] Blood specimen (specimen) Venous blood / Unknown 01/26/2025 3:08 PM EDT 01/26/2025 Gianna Mart [facility] LAB BLOOD ORDERABLES Final Result [facility] [address] [place] [address] * (ABNORMAL) Renal function panel (01/26/2025 3:08 PM EDT) Glucose 104(H) 70 - 99 mg/dL [facility] BUN 14 6 - 24 mg/dL [facility] Creatinine 0.90 0.57 - 1.00 mg/dL [facility] eGFR CKD-EPI CR 2020 77 >59 mL/min/1.7 3 [facility] BUN/Creatinine Ratio 16 9 - 23 [facility] Sodium 142 134 - 144 mmol/L [facility] Potassium 4.2 3.5 - 5.2 mmol/L [facility] Chloride 101 96 - 106 mmol/L [facility] Bicarbonate (CO2) 24 20 - 29 mmol/L [facility] Calcium 9.6 8.7 - 10.2 mg/dL [facility] Phosphorus 3.5 3.0 - 4.3 mg/dL [facility] Albumin 4.7 3.8 - 4.9 g/dL [facility] Blood specimen (specimen) Venous blood / Unknown 01/26/2025 3:08 PM EDT 01/26/2025 Gianna Barron [facility] LAB BLOOD ORDERABLES Final Result [facility] [address] [place] [phone] from Last 3 Months Insurance Medicare Medicaid [place] Medicare Medicaid [place] Care Teams Fern Cutter Relationship Specialty Start Date End Date Stephanie García MD [address] [place] [address] PCP - General Internal Medicine 01/05/24
--- OUTSIDE RECORDS SUMMARY | 2025-03-08 13:22 | XMS_ITS | Clinical Summary ---
Author Organization [facility] Address [address] [place] [address] Care Team Providers Care Chemical Processing Equipment Repairer Name Role Phone Mick Vidal MD Primary Care Provider [phone] Surgical History Surgery Date Site/Laterality Comments OTHER [...] 2016 OTHER SURGICAL HISTORY 12/2016 N/A PROCEDURE: HI TOTAL ABDOMINAL HYSTERECT W/WO RMVL TUBE OVARY; COMMENT: Sites. Salpingectomy OTHER SURGICAL HISTORY Right PROCEDURE: HI PRTL THYROID LOBECTOMY UNI W/WO ISTHMUSECTOMY BREAST SURGERY 2019 Left PROCEDURE: HI UNLISTED PROCEDURE BREAST; COMMENT: fibroademona Medical History [...] screening mammography is recommended Procedure Note Levon Farncisco MD - 07/08/2022 This is a summary [...] Recently Relevant to Health Maintenance Care Teams Chemical Processing Equipment Repairer Relationship Specialty Start Date End Date Mick Vidal MD [address] [place] [address] PCP - General Internal Medicine 10/18/21
== END 2025-03-08 13:16 | disposition home or self-care (01) ==
LOC: HO.HMCH 12:25
PROVIDERS: Visit Provider Internal Medicine
DX: E11.65 Type 2 diabetes mellitus with hyperglycemia (principal); I63.9 Cerebral infarction, unspecified; I69.959 Hemiplegia and hemiparesis following unspecified cerebrovascular disease affecting unspecified side; R56.9 Unspecified convulsions; R51.9 Headache, unspecified; E78.5 Hyperlipidemia, unspecified; I10 Essential (primary) hypertension; R47.01 Aphasia

== ENCOUNTER → 2025-03-08 12:25 | Outpatient (BNVA) | payer MEDICARE, MEDICAID, SELFPAY | PROVIDERS: Visit Provider Internal Medicine | DX: E11.65 Type 2 diabetes mellitus with hyperglycemia (principal); R56.9 Unspecified convulsions; R51.9 Headache, unspecified; E78.5 Hyperlipidemia, unspecified; I69.351 Hemiplegia and hemiparesis following cerebral infarction affecting right dominant side; I10 Essential (primary) hypertension; R47.01 Aphasia | CPT/HCPCS: 96127; 99212 ==

== ENCOUNTER 2025-04-01 09:52 | Outpatient (REF) | payer MEDICARE, MEDICAID, SELFPAY ==
--- OUTSIDE RECORDS SUMMARY | 2025-03-27 13:00 | XMS_ITS | Encounter Summary ---
Author Organization [facility] Address [address] [place] [phone] Phone Care Team Providers Care Accounting Analyst Name Role Phone Estephania Padilla NP Primary Care Provider [phone] Encounter Details Date Type Department Care Team (Latest Contact Info) Description 03/27/2025 1:00 PM EDT Office Visit [facility] Neurology [address] [place] [id number] Prem Carrillo MD [address] [facility], 2nd [place] [address] [email or web address] Seizure as late effect of cerebrovascular accident (CVA) (Primary Dx); Aphasia as late effect of cerebrovascular accident; Hx of ischemic left MCA stroke Social History Tobacco Use Types Packs/Day Years [...] AM EST documented as of this encounter Progress Notes * Felicitas Coley PA-C - 03/27/2025 1:00 PM EDTAddended by: FELICITAS COLEY on: 03/31/2025 01:09 PM Modules accepted: Level of Service * Prem Carrillo MD - 03/27/2025 1:00 PM EDT Date of Visit: 03/27/2025 Reason for Visit (Chief Complaint): L MCA Stroke, seizure HPI: Virginie is a 55yo woman with HTN, HLD, DM, 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 Mott, no longer accepts her insurance. Virginie has not had a major GTC seizure since Mar 2020 but she has staring spells with associated headaches about once a month. At our 06/2022 appt, I completed paperwork as they were interested in obtaining the [employer] seizure detection device but it kept triggering false alarms due to spotty wifi, so they returned it. Routine EEG 06/2022 showed slowing on the L frontotemporal region corresponding with structural damage from prior stroke. At our 12/2022 appt, she was doing well. Virginie's sister Gabriella contacted my office 07/2023 to report some involuntary tongue biting when eating. They denied any medication adjustments or any seizures. At our 07/2023 visit, I suspected the tongue biting was related to dysphagia from her stroke, and I had low suspicion for seizure or tardive d yskinesia. Due to daytime sleepiness, we reduced keppra from 1000 BID down to 500 qAM + 1000 qPM. At our 12/2023 appt, Virginie was doing well aside from 1 mechanical fall when she turned too fast. Keppra 500/1000 was better tolerated. She remained seizure free and daytime sleepiness was improved. Dentist gave her a special mouthguard to reduce cheek/tongue biting. At our 08/2024 appt, they reported 1 mild seizure described as an absence-type staring episode x 1min, in the setting of hyperglycemia. Gabriella was working with PCP on diabetes control, started ozempic and pioglitazone. We continued keppra 500/1000 and Lamictal 150mg BID. We checked an EEG 10/2024 which showed left frontotemporal slowing in the region of her prior stroke, no epileptic discharges orseizures. She returns today accompanied via phone by her sister Gabriella who is being checked in the ED after a car accident. Virginie has been seizure-free. Blood sugars have been better controlled with Ozempic. She has lost some weight as well. She is tolerating the AED's well, no complaints. Initial HPI 07/01/22: Ms. Canada is a 52yo woman with HTN, HLD, DM, prior L MCA stroke in November 2014 2/2 carotid dissection/clot with residual R hemiparesis and cognitive/language deficits, post stroke seizures maintainedon Keppra 1000mg BID and Lamictal 150mg BID who is referred to transfer neurology care since her prior neurologist, Dr. Mott, no longer accepts her insurance. No prior Neurology notes were availa ble for review prior to our initial 07/01/2022 appointment. PCP notes indicate the patient has beenseizure-free for over 3 years. She presents today accompanied by her sister Gabriella. She defers a lot to her sister. They tell me that she suffered a major stroke in 2014, treated at [facility]. They are unsure if she got tPA. She had had a swollen gland that went to her brain and sent a clot to her brain. 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 She was on coumadin for maybe 1-2 years andthen switched to ASA. She has not have any strokes since that time. She developed seizures fairly soon after the stroke -- they look like spasms all over -- her last major seizure was ~3 years ago. She continues to have quieter smaller seizures whereby she'll get some L sided headaches and she'llbecome quiet and stare off into space. When she calms and rests quietly, these episodes may subside. These small episodes occur about once a month. She continues to have some issues with expressive and sales receptionist aphasia, memory, R sided spasticity with R foot drop (wearing an AFO), and some R sidedvision deficits. She has no hx of blood clots in her legs or lungs. No hx of miscarriages. No hx of rashes. She doesn't think that she is especially hypermobile. They think she had an EEG in [address] Mott. ----- Dr. Mott records reviewed: At their appointment on 09/25/2020, Dr. Mott mentions that she had 2 seizures in March 2020 possibly triggered by feeling agitated or anxious, then looking dazed, and then returning to normal. Lamotrigine was slightly down titrated to 150mg BID due to sedation. At their appointment on 10/31/2021, she was doing well on Lamictal 150mg BID. He mentions that an EEG 10/2021 was negative. He also mentions that a hypercoagulation panel, 30-day monitor car operator, and echo with bubble study were negative. MRI was also negative for any aneurysm. EEG - 10/19/24 - INTERPRETATION: This routine EEG, obtained with the patient awake, drowsy, and asleep, is abnormal due to the presence of slowing in the left frontotemporal region, similar to what wasseen in the prior EEG dated 07/09/2022. This indicates a stable underlying structural abnormality related to the patient's prior left MCA territory stroke. No epileptic discharges were seen. No seizures occurred. EEG - 07/09/22 - INTERPRETATION: This routine EEG, obtained with the patient awake, drowsy, and asleep, is abnormal due to persistent slowing in the left frontotemporal region. This likely reflects the patient's known structural brain defect in this area from her prior left MCA stroke. No epileptiform activity occurred. Labs - Normal Lytes aside from glucose 158, CBC wnl. No LDL or A1C on file. Brain MRI 05/06/21 - images reviewed - Extensive L MCA territory gliosis from prior stroke, progressed since prior scan in [id number]. Per old PCP records from [facility]: Aphasia as late effect of cerebrovascular accident [438.11] 02/08/201501/01--According to discharge summary patient to be on warfarin for 6 months for the finding of clot/dissection in the carotid artery and to obtain MRA in 3 months and if it is resolved again discontinuing anticoagulation 01/01-emergent CT and CTA which revealed left MCA hypodensity in CTA with left ICA carotid dissection and left M1 M2 occlusion. 01/01-eco with bublle no shunt PMHx: Past Medical History: Diagnosis Date CVA (cerebral vascular accident) Diabetes Meds: Current Outpatient Medications Medication Sig Dispense Refill Last Dispense aspirin 325 MG tablet Take 325 mg by mouth. Unknown (patient-reported) atorvastatin (LIPITOR) 20 MG tablet Take 1 tablet by mouth every morning. Unknown (patient-reported) blood sugar diagnostic (ACCU-CHEK TRISH PLUS) Strp strips Check blood sugars daily. Unknown (patient-reported) chlorhexidine (PERIDEX) 0.12 % solution Swish and spit 15 mL 2 (two) times a day. For 30 sec.do notswallow. 473 mL 0 Unknown (outside pharmacy) dulaglutide (TRULICITY) 0.75 mg/0.5 mL subcutaneous injection INJECT 0.75 MG (0.5 ML) SUBCUTANEOUSLY EVERY WEEK Unknown (patient-reported) lamoTRIgine (LAMICTAL) 150 MG IMMEDIATE release tablet TAKE 1 TABLET BY MOUTH TWICE A DAY 180 tablet 3 Unknown (outside pharmacy) lancing device with lancets Kit Check blood sugars daily Unknown (patient-reported) levETIRAcetam (KEPPRA) 1000 MG IMMEDIATE release tablet TAKE 1/2 TABLET BY MOUTH EVERY MORNING AND TAKE 1 TABLET EVERY EVENING 135 tablet 5 Unknown (outside pharmacy) lisinopril (PRINIVIL,ZESTRIL) 2.5 MG tablet Unknown (patient-reported) multivit-minerals/folic/ginkgo (WOMEN'S 50+ DAILY FORM, GKB, ORAL) Unknown (patient-reported) naproxen (NAPROSYN) 500 MG tablet Take 1 tablet (500 mg total) by mouth 2 (two) times a day for 3 days. Then twice daily as needed for pain, inflammation 20 tablet 0 Unknown (outside pharmacy) triamcinolone acetonide 0.05 % Oint Apply 1 g topically. Unknown (patient-reported) TRULICITY 0.75 mg/0.5 mL subcutaneous injection INJECT 0.75 MG (0.5 ML) SUBCUTANEOUSLY WEEKLY Unknown (patient-reported) No current facility-administered medications for this visit. Allergies: Allergies Allergen Reactions Erythromycin Penicillins Edetate Disodium Rash Latex Rash FamHx: There is no family history of neurologic illness. No one with any hx of stroke at a young age. SocHx: On disability since her stroke. 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 She lives with her sister, indep of ADLs. The patient does not smoke, abuse ETOH, or use recreational drugs. ROS: Pertinent positive ROS are listed in the HPI. All others are negative. Physical Exam: Vitals: see in chart Gen: Awake but defers a lot to her sister per baseline. HEENT: No abnormal tongue, mouth, lip, or jaw movements. Neuro: Mixed expressive/receptive aphasia -- per prior visits, she can tell me it is Aug-(It is 09/06) and she adds the five-two (for 2024). Has trouble naming thumb but can name watch and pencil. She can repeat a short sentence and follow a basic command. Some R-L confusion. Motor: Spastic R hemiplegia. Reflexes: deferred, as per prior visits brisk throughout R arm and R leg. +Jeffers's in R side, negon L. Gait: Spastic on account of R hemiparesis. Uses a cane on her L hand. Per our 07/01/22 appt: MS: When I ask her the month, she writes in the air 2 but she has trouble saying June. She can repeat part of a sentence but then gets side tracked ( It is a gloria day in... she cannot recall [place]). She cannot name thumb -- she shows me her thumb and says I can't say it. She can name a watch. She cannot say how much is a quarter -- she says carissa. She can follow basic commands like stick out tongue or show 2 fingers w L hand. CN: PERRL, EOMI, no nystagmus, R hemifield cut fundi not visualized, some tenderness over side of her face/taoist, mild R facial droop, hearing intact to conversation, scm/traps 5/5, tongue midline Motor: Dense R hemiparesis. Sens: Slight decrement to LT on the R side. Reflexes: 1+ b/l bi/BR more pronounced on R side. mute patellars Coord: FTN intact on L side, deferred on R side, no dysmetria. Gait: Spastic on account of R hemiparesis. Uses a cane on her L hand. Assessment and Plan: Virginie is a 55yo woman with HTN, HLD, DM, prior L MCA stroke in November 2014 2/ carotid dissection/clot with residual R hemiparesis, R visual field cut, and cognitive/language deficits, and 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 Mott, no longer accepts her insurance. Virginie has not had a major GTC seizure since Mar 2020 but she has staring spells with associated headaches about once a month. At our 06/2022 appt, I completed paperwork as they were interested in obtaining the [employer] seizure detection device; the device ultimately triggered to many false alarms d ue to poor Wi-Fi connectivity, so they returned. Routine EEG 06/2022 showed slowing on the L frontotemporal region corresponding with structural damage from prior stroke. In early 2023, they reported several recent episodes of tongue biting, sometimes while eating and sometimes while asleep. I suspect that this may be a residual effect from her stroke affecting coordination of her swallowing muscles. No evidence of tardive dyskinesia or other tremors. I doubt seizure since many of the tongue biting episodes have occurred while awake and eating. At our 07/2023 visit, we actually decreased her Keppra from 1000mg BID down to 500 qAM + 1000 qPM. She was seizure-free,and her daytime energy level is improved. Virginie suffered a brief complex partial seizure (staring spell, behavioral arrest) in 08/2024 in the setting of hyperglycemia from adjustments in her DM regimen. They are working with her PCP to stabilize her blood sugars. We checked an EEG 10/2024 which showed left frontotemporal slowing in the regionof her prior stroke, no epileptic discharges or seizures. We did not make any AED adjustments. She has been seizure free since. -Continue keppra 500mg qAM and 1000 qPM (in 07/2023, we reduced AM dose to see if this improves someof her daytime sleepiness). -Continue Lamictal 150mg BID -- we may increase her Lamictal if she suffers an unprovoked breakthrough seizure. -Embrace device caused too many false alarm calls so they returned it -Continue Speech therapy exercises -She completed a PT evaluation in Spring 2023 to help with balance, spasticity, gait training -Continue ASA 81 or 325 mg (either dose is fine) -Continue statin for goal LDL < 70 -Control blood glucose control for goal A1C < 7 -Control HTN for goal normotension -Would avoid etoh, tobacco, MJ, and other recreational drugs. -f/u 6 months documented in this encounter Plan of Treatment Not on file documented as of this encounter Visit Diagnoses Diagnosis Seizure as late effect of cerebrovascular accident (CVA)- Primary Aphasia as late effect of cerebrovascular accident Hx of ischemic left MCA stroke documented in this encounter Care Teams Accounting Analyst Relationship Specialty Start Date End Date Estephania Padilla NP [address] [address] PCP - General 07/01/22 documented as of this encounter Additional Source Comments The information contained in this document represents components of the legal health record. It is not the complete legal health record.[facility]
--- OUTSIDE RECORDS SUMMARY | 2025-04-01 09:55 | XMS_ITS | Clinical Summary ---
Author Organization [facility] Address [address] [place] [address] Phone Care Team Providers Care Consulting Solution Manager Name Role Phone Stephanie García MD Primary Care Provider [phone] Allergies Active Allergy Reactions Criticality Noted Date [...] no shunt 03/23/15- AC management transferred to [facility]. 05/29/16- warfarin stopped per Neuro. On asa 81 mg daily. Seizure 02/08/2015 Overview (10/07/2022): effexor and neurontin started at [facility] and were stopped due to ? [...] Visit [facility] [address] [address] Gianna Mart ARNP Chronic kidney [...] Office Visit [facility] [address] [id number] Gianna Mart ARNP [address] [address] Health Maintenance Due Date Last [...] Urine 11-30(A) 0 - 5 /hpf [facility] RBC, Urine 3-10(A) 0 - 2 /hpf [facility] Squamous Epithelial, Urine >10(A) 0 - 10 /hpf [facility] Casts None seen None seen /lpf [facility] Crystals Present(A) N/A [facility] Crystal Type Calcium Oxalate N/A [facility] Bacteria, Urine Few None seen/Few [facility] 01/26/2025 3:08 PM EDT 01/26/2025 Gianna Mart [facility] LAB MICROBIOLOGY - GENERAL ORDERABLES Final Result [facility] [address] [place] [address] * Iron Panel (Fe, TIBC, TSAT) (01/26/2025 3:08 PM EDT) Pathologist [facility] TIBC 301 250 - 450 ug/dL [facility] UIBC 241 131 - 425 ug/dL [facility] Iron 60 27 - 159 ug/dL [facility] Iron Saturation (TSat) 20 15 - 55 % [facility] Blood specimen (specimen) Venous blood / Unknown 01/26/2025 3:08 PM EDT 01/26/2025 [facility] BLOOD ORDERABLES Final Result Performing Organization Address City/[facility]/ZIP Co de Phone Number [facility] [address] [place] [address] * (ABNORMAL) Urine Protein / creatinine ratio (01/26/2025 3:08 PM EDT) Creatinine, Ur 329.0 Not Estab. mg/dL [facility] Protein, Ur 138.8 Not Estab. mg/dL [facility] Urine Protein/Creati nine Ratio 422(H) 0 - 200 mg/g creat [facility] Urine specimen (specimen) Urine specimen obtained by clean catch procedure / Unknown 01/26/2025 3:08 PM EDT 01/26/2025 Gianna [facility] LAB URINE ORDERABLES Final Result [facility] [address] [place] [address] * Vitamin D 25 hydroxy (01/26/2025 3:08 PM EDT) Vitamin D, 25-OH, Total 44.5 30.0 - 100.0 ng/mL [facility] Comment: Vitamin D deficiency has been defined by the [employer] of Medicine and an Endocrine Society practice guideline as a level of serum 25-OH vitamin D less than 20 ng/mL (1,2). The Endocrine Society went on to further define vitamin D insufficiency as a level between 21 and 29 ng/mL (2). 1. IOM ([place] of Medicine). 2010. Dietary reference intakes for [...] LAB BLOOD ORDERABLES Final Result [facility] [address] [place] [address] * (ABNORMAL) Urinalysis with microscopic (01/26/2025 3:08 PM EDT) Specific [place], Urine >=1.030(A) 1.005 - 1.030 [facility] pH Urine 5.5 5.0 - 7.5 [facility] [phone] Color, Urine Yellow Yellow [facility] Appearance Urine Cloudy(A) Clear [facility] [place] [phone] WBC Esterase Urine 1+(A) Negative [facility] Protein, Ur 2+(A) Negative/Tra ce [facility] Glucose, Ur Negative Negative [facility] [phone] Ketones, Urine Trace(A) Negative [facility] [place] Blood Urine 2+(A) Negative [facility] Bilirubin Urine Negative Negative [facility] [place] Urobilinogen Urine 1.0 0.2 - 1.0 mg/dL [facility] Nitrite, Urine Negative Negative [facility] [place] Microscopic Examination See below: [facility] Comment:Microscopic was asher cated and was performed. Urine specimen (specimen) Urine specimen obtained by clean catch procedure / Unknown 01/26/2025 3:08 PM EDT 01/26/2025 [facility] LAB URINE ORDERABLES Final Result [facility] [address] [place] [address] * CBC (01/26/2025 3:08 PM EDT) WBC 7.4 3.4 - 10.8 x10E3/uL [facility] RBC 4.47 3.77 - 5.28 x10E6/uL [facility] Hemoglobin 13.2 11.1 - 15.9 g/dL [facility] Hematocrit 39.0 34.0 - 46.6 % [facility] MCV 87 79 - 97 fL [facility] MCH 29.5 26.6 - 33.0 pg [facility] MCHC 33.8 31.5 - 35.7 g/dL [facility] RDW 12.7 11.7 - 15.4 % [facility] Platelets 361 150 - 450 x10E3/uL [facility] Blood specimen (specimen) Venous blood / Unknown 01/26/2025 3:08 PM EDT 01/26/2025 [facility] LAB BLOOD ORDERABLES Final Result [facility] [address] [place] [address] * PTH, intact (01/26/2025 3:08 PM EDT) PTH 27 15 - 65 pg/mL [facility] Blood specimen (specimen) Venous blood / Unknown 01/26/2025 3:08 PM EDT 01/26/2025 [facility] LAB BLOOD ORDERABLES Final Result [facility] [address] [place] [address] * (ABNORMAL) Ferritin (01/26/2025 3:08 PM EDT) Ferritin 257(H) 15 - 150 ng/mL [facility] Blood specimen (specimen) Venous blood / Unknown 01/26/2025 3:08 PM EDT 01/26/2025 Gianna Mart [facility] LAB BLOOD ORDERABLES Final Result [facility] [address] [place] [address] * (ABNORMAL) Renal function panel (01/26/2025 3:08 PM EDT) Glucose 104(H) 70 - 99 mg/dL [facility] BUN 14 6 - 24 mg/dL [facility] Creatinine 0.90 0.57 - 1.00 mg/dL [facility] eGFR CKD-EPI CR 2020 77 >59 mL/min/1.7 3 [facility] BUN/Creatinine Ratio 16 9 - 23 [facility] Sodium 142 134 - 144 mmol/L [facility] Potassium 4.2 3.5 - 5.2 mmol/L [facility] Chloride 101 96 - 106 mmol/L [facility] Bicarbonate (CO2) 24 20 - 29 mmol/L [facility] Calcium 9.6 8.7 - 10.2 mg/dL [facility] Phosphorus 3.5 3.0 - 4.3 mg/dL [facility] Albumin 4.7 3.8 - 4.9 g/dL [facility] Blood specimen (specimen) Venous blood / Unknown 01/26/2025 3:08 PM EDT 01/26/2025 Gianna Barron [facility] LAB BLOOD ORDERABLES Final Result [facility] [address] [place] [phone] from Last 3 Months Insurance Medicare Medicaid [place] Care Teams Consulting Solution Manager Relationship Specialty Start Date End Date Stephanie García MD [address] [place] [address] PCP - General Internal Medicine 01/05/24
--- OUTSIDE RECORDS SUMMARY | 2025-04-01 09:55 | XMS_ITS | Clinical Summary ---
Author Organization [facility] Address [address] [place] [phone] Phone Care Team Providers Care Assembler Filters Name Role Phone Estephania Padilla NP Primary Care Provider [phone] Allergies Active Allergy Reactions Criticality Noted Date Comments Edetate Disodium Rash Low 08/14/2005 Erythromycin 08/19/2022 Latex Rash Low 03/08/2014 Penicillins 08/19/2022 Medications blood sugar diagnostic (ACCU-CHEK TRISH PLUS) Strp strips Check blood sugars daily. 09/09/19 22 Active atorvastatin (LIPITOR) 20 MG tablet Take 1 tablet by mouth every morning. 10/20/19 23 Active aspirin 325 MG tablet Take 325 mg by mouth. Active dulaglutide (TRULICITY) 0.75 mg/0.5 mL subcutaneous injection INJECT 0.75 MG (0.5 ML) SUBCUTANEOUSLY EVERY WEEK 06/26/20 22 Active TRULICITY 0.75 mg/0.5 mL subcutaneous injection INJECT 0.75 MG (0.5 ML) SUBCUTANEOUSLY WEEKLY 11/15/19 23 Active multivit-minerals/ folic/ginkgo (WOMEN'S 50+ DAILY FORM, GKB, ORAL) Act patience lisinopril (PRINIVIL,ZESTRIL) 2.5 MG tablet Active triamcinolone acetonide 0.05 % Oint Apply 1 g topically. 07/22/19 22 Active lancing device with lancets Kit Check blood sugars daily 09/09/19 22 Active naproxen (NAPROSYN) 500 MG tablet Take 1 tablet (500 mg total) by mouth 2 (two) times a day for 3 days. Then twice daily as needed for pain, inflammation 20 tablet 01/01/20 24 Active chlorhexidine (PERIDEX) 0.12 % solution Swish and spit 15 mL 2 (two) times a day. For 30 sec.do not swallow. 473 mL 01/01/20 24 Active levETIRAcetam (KEPPRA) 1000 MG IMMEDIATE release tabletIndications: Seizure as late effect of cerebrovascular accident (CVA) TAKE 1/2 TABLET BY MOUTH EVERY MORNING AND TAKE 1 TABLET EVERY EVENING 135 tablet 5 10/25/19 25 Active lamoTRIgine (LAMICTAL) 150 MG IMMEDIATE release tabletIndications: Seizure as late effect of cerebrovascular accident (CVA) TAKE 1 TABLET BY MOUTH TWICE A DAY 180 tablet 3 02/14/20 25 Active Active Problems No known active problems Encounters Date Type Department Care Team Description 03/27/2025 1:00 PM EDT Office Visit [facility] [address] [place] [address] [place] [address] Prem Carrillo MD Seizure as late effect of cerebrovascular accident (CVA) (Primary Dx); Aphasia as late effect of cerebrovascular accident; Hx of ischemic left MCA stroke 02/12/2025 Refill [facility] [address] [place] [address] [place] [address] Prem Carrillo MD Medication Refill from Last [...] 01/01/2024 12:17 PM EDT Plan of Treatment Health Maintenance Due Date Last Done Comments DEPRESSION SCREENING 1984 HEPATITIS C SCREENING 1990 HIV ONE-TIME SCREENING (18-65 YEARS) 1990 PAP SMEAR 1993 SCREENING FOR DIABETES 2007 MAMMOGRAM 2012 COLOGUARD 2017 COLONOSCOPY 2017 COLORECTAL CANCER SCREENING 2017 FIT TEST 2017 FOBT 2017 SIGMOIDOSCOPY 2017 VIRTUAL COLONOSCOPY 2017 PNEUMOCOCCAL VACCINES (50+ years) (2 of 2 - PCV) 2022 05/06/2017 ZOSTER VACCINES (1 of 2) 2022 CREATININE LEVEL 07/05/2022 07/05/2021, 06/09/2021 POTASSIUM LEVEL 07/05/2022 07/05/2021, 06/09/2021 INFLUENZA VACCINE (#1) 2025 , 05/25/2020, 05/16/2019, Additional history exists COVID-19 VACCINE ( - season) 2025 LIPID PANEL 05/13/2026 05/13/2021 Adult Td,Tdap Booster 02/03/2033 02/03/2023 , 01/24/2013, 03/22/2002 SMOKING STATUS SCREENING (Once After 26 Yrs) Completed 01/01/2024 HEPATITIS A [...] EST) SODIUM 135 133 - 146 mmol/L [facility] CHLORIDE 100 96 - 108 mmol/L [facility] POTASSIUM 4.1 3.3 - 5.1 mmol/L [facility] CO2 26 21 - 35 mmol/L [facility] BUN 11 6 - 19 mg/dL [facility] CREATININE 0.80 0.5 - 1.5 mg/dL [facility] GLUCOSE 158(H) 70 - 99 mg/dL [facility] CALCIUM 9.3 8.4 - 10.3 mg/dL [facility] EGFR 90 >59 mL/min/1.7 3m2 [facility] Comment:Estimated glomerular filtration rate calculated using the CKD-EPI refit equation. ANION GAP 13 10 - 20 mmol/L [facility] Blood 07/05/2021 12:3 1 PM EST 07/05/2021 12:45 PM EST us Guiliana Krishnan PA-C LAB BLOOD ORDERABLES Fi nal Result [facility] [address] [place], [place] [id number] from Last 3 Months or Most Recently Relevant to Health Maintenance Insurance MEDICARE PART A & B [place] [facility] [place] [facility] [place] [facility] & [place] & B Member Subscriber Plan / Payer (Ef fective 2017-) Name:Virginie [place] Member ID:[id number] Relation to Subscriber:Self Name:Virginie [place] Subscriber ID:[id number] Payer ID:[id number] Group ID:Not on file Type:Medicare Address: [facility] [employer] [facility] [address] [place] [phone] [place] PART A & B [facility] Care Teams Assembler Filters Relationship Specialty Start Date End Date Estephania Padilla NP [address] [place] [address] PCP - General 07/01/22 Additional Source Comments The information contained in this document represents components of the legal health record. It is not the complete legal health record.[facility]
--- OUTSIDE RECORDS SUMMARY | 2025-04-01 09:55 | XMS_ITS | Encounter Summary ---
Author Organization [facility] Address [address] [facility] [address] [place] [address] Phone Care Team Providers Care Auto Specialty Services Manager Name Role Phone Claudio Mott MD Primary Care Provider [phone] Estephania Padilla NP Primary Care Provider [phone] Reason for Referral * MRI/CAT Scan - Closed Specialty Diagnoses / Procedures Referred By Shalom kessler Referred To Contact Radiology Diagnoses Blurred vision Nonintractable headache, unspecified chronicity pattern, unspecified headache type Procedures MRI Brain Claudio Mott MD Phone: tel: fax: [email or web address] Referral ID Status Reason Start Date Expiration Date Visits Re quested Visits Authorized [id number] Closed 04/09/2021 04/09/2022 1 1 Encounter Details Date Type Department Care Team (Latest Contact Info) Description 04/09/2021 Transcribe Orders Virtual Department [address] [place] [phone] Claudio Mott MD [address] [place] [address], [address] [place], [place] [id number] [email or web address] Blurred vision (Primary Dx); Nonintractable headache, unspecified chronicity pattern, unspecified headache type Social History Tobacco Use Types Packs/Day Years Used Date Smoking Tobacco: Never Assessed Comments Unknown Sex and Gender Information Value Date Recorded Sex Assigned at Female 06/09/2021 4:40 AM EST Legal Sex Female 9:32 PM EDT Gender Identity Female 06/09/2021 4:40 AM EST Sexual Orientation Straight 06/09/2021 4: 40 AM EST documented as of this encounter Plan of Treatment Not on file documented as of this encounter Results * MRI BRAIN WITHOUT CONTRAST (05/06/2021 4:08 PM EDT) Anatomical Region Laterality Modality Head Magnetic Resonan ce 05/06/2021 4:26 PM EDT Impressions 05/06/2021 4:33 PM EDT Progressive gliosis in the left frontal lobe with some further volume loss and mild progressive enlargement of left lateral ventricle. No acute intracranial ischemia, mass, or hemorrhage identified. Narrative 05/06/2021 4:33 PM EDT HISTORY: Increasing frequency of seizures. Prior are left cerebral infarction. COMPARISON: MRIs, most recent July 30, 2016. CT studies March 26, 2016 and April 29, 2015. TECHNIQUE: Exam performed on a 1.5 Rachael high-field MRI scanner. Axial T1, T2, T2 FLAIR and diffusion-weighted imaging with ADC map, coronal T2 FLAIR and STIR, sagittal T1 sequences were obtained. FINDINGS: No areas of restricted diffusion to suggest acute ischemia. Small amounts of susceptibility effect, probably from changes of old left reperfusion at the periphery of the left frontotemporal infarction noted. Clear cystic signal in the white matter appears progressive over the left frontal lobe. There appears to be some mildly progressive ex-vacuo enlargement of the left lateral ventricle. The areas of ischemic change extending down into the left cerebral peduncle with volume loss at the left side of the chaya, but this is all similar in appearance to prior study. Relative prominence of the right thalamus, extending to the level of the midline is unchanged. A few other scattered white matter foci seen on the right are similar to prior study. No iuqjy-swygw-hapwj blood or fluid collection, mass, or mass effect is appreciated reason in the interim. Pituitary not enlarged. No orbital lesion identified. Cerebellar tonsils not ectopic. No fluid in paranasal sinuses. Vertebrobasilar system appears very small with almost all posterior cerebral flow coming via posterior communicating arteries bilaterally. Appearance is unchanged. Procedure Note Amrit Diane MD - 05/06/2021 HISTORY: Increasing frequency of seizures. Prior are left cerebralinfarction. COMPARISON: MRIs, most recent July 30, 2016. CT studies March and April 29, 2015. TECHNIQUE: Exam performed on a 1.5 Rachael high-field MRI scanner. AxialT1, T2, T2 FLAIR and diffusion-weighted imaging with ADC map, coronal [id number] and STIR, sagittal T1 sequences were obtained. FINDINGS: No areas of restricted diffusion to suggest acute ischemia. Small amountsof susceptibility effect, probably from changes of old left reperfusion atthe periphery of the left frontotemporal infarction noted. Clear cysticsignal in the white matter appears progressive over the left frontal lobe.There appears to be some mildly progressive ex-vacuo enlargement of theleft lateral ventricle. The areas of ischemic change extending down intothe left cerebral peduncle with volume loss at the left side of the chaya,but this is all similar in appearance to prior study. Relative prominenceof the right thalamus, extending to the level of the midline is unchanged.A few other scattered white matter foci seen on the right are similar toprior study. No apttk-uaeag-jhatj blood or fluid collection, mass, or masseffect is appreciated reason in the interim. Pituitary not enlarged. No orbital lesion identified. Cerebellar tonsilsnot ectopic. No fluid in paranasal sinuses. Vertebrobasilar system appearsvery small with almost all posterior cerebral flow coming via posteriorcommunicating arteries bilaterally. Appearance is unchanged. IMPRESSION: Progressive gliosis in the left frontal lobe with some further volume lossand mild progressive enlargement of left lateral ventricle. No acuteintracranial ischemia, mass, or hemorrhage identified. us Claudio Mott MD IMG MR HEAD/NECK Final Resul t documented in this encounter Visit Diagnoses Diagnosis Blurred vision- Primary Other specified visual disturbances Nonintractable headache, unspecified chronicity pattern, unspecified headache type Blurred vision Other specified visual disturbances Nonintractable headache, unspecified chronicity pattern, unspecified headache type documented in this encounter Additional Health Concerns Infection Onset Date Last Indicated Resolved Time CoV-Exposed Comment:Positive COVID-19 06/09/2021 06/09/2021 06/09/2021 6:1 4 AM EST CoV-Risk 06/09/2021 06/09/2021 06/09/2021 6:14 AM EST COVID-19 06/09/2021 06/09/2021 06/30/2021 1:2 1 AM EST documented as of this encounter Care Teams Auto Specialty Services Manager Relationship Specialty Start Date End Date Claudio Mott MD [address] [place] [address], [address] [place] [address] [email or web address] PCP - General Neurology 04/16/21 06/30/22 Estephania Padilla NP [address] [address] PCP - General 07/01/22 documented as of this encounter Additional Source Comments The information contained in this document represents components of the legal health record. It is not the complete legal health record.[facility]
--- OUTSIDE RECORDS SUMMARY | 2025-04-01 09:55 | XMS_ITS | Encounter Summary ---
Author Organization [facility] Address [address] [place] [address] Phone Care Team Providers Care Brusher Name Role Phone Claudio Mott MD Primary Care Provider Estephania Padilla NP Primary Care Provider [phone] Encounter Details Date Type Department Care Team (Late st Contact Info) Description 04/09/2021 Procedure [facility] [address] [place] [address] Social History Tobacco Use Types Packs/Day Years [...] documented as of this encounter Care Teams Brusher Relationship Specialty Start Date End Date Claudio Mott MD [address] [place] [address], [address] [place] [address] [email or web address] PCP - General Neurology 04/16/21 06/30/22 Estephania Padilla NP [address] [address] PCP - General 07/01/22 documented as of this encounter Additional Source Comments The information contained in this document represents components of the legal health record. It is not the complete legal health record.[facility]
--- OUTSIDE RECORDS SUMMARY | 2025-04-01 09:55 | XMS_ITS | Clinical Summary ---
[facility] Organization [facility] Address [address] [place] [address] Care Team Providers Care City Letter Carrier Name Role Phone Mick Vidal MD Primary Care Provider [phone] Surgical History Surgery Date Site/Laterality Comments OTHER [...] 2016 OTHER SURGICAL HISTORY 12/2016 N/A PROCEDURE: NV TOTAL ABDOMINAL HYSTERECT W/WO RMVL TUBE OVARY; COMMENT: Sites. Salpingectomy OTHER SURGICAL HISTORY Right PROCEDURE: [place] PRTL THYROID LOBECTOMY UNI W/WO ISTHMUSECTOMY BREAST SURGERY 2019 Left PROCEDURE: NV UNLISTED PROCEDURE BREAST; COMMENT: fibroademona Medical History [...] 09/24/19 22, 09/17/2020, 08/31/2019, Additional history exists Depression Screening 07/20/2024 COVID-19 Vaccine ( season) 2025 Influenza Vaccine (#1) 2025 0, 04/21/2018, 05/06/2017, [...] Recently Relevant to Health Maintenance Care Teams City Letter Carrier Relationship Specialty Start Date End Date Mick Vidal MD [address] [place] [address] PCP - General Internal Medicine 10/18/21
[2025-04-01 10:37] LABS: Alanine Aminotransferase 26 U/L (0-31); Albumin Level 4.7 g/dL (3.5-5.0); Alkaline Phosphatase 140 U/L (39-117); Anion Gap 13 (12-20); Aspartate Amino Transferase 22 U/L (5-31); Blood Urea Nitrogen 14 mg/dL (9-16); Calcium 9.5 mg/dL (8.4-10.2); Carbon Dioxide 28 mmol/L (22-29); Chloride 105 mmol/L (96-108); Cholesterol 124 mg/dL (<200); Estimated Glomerular Filt Rate 55; HDL Cholesterol 30 mg/dL (>40); Potassium 4.4 mmol/L (3.3-5.1); Sodium 142 mmol/L (135-145); Total Protein 7.7 g/dL (6.5-8.0); Triglycerides 46 mg/dL (<150)
[2025-04-01 10:50] LABS: Resp Syncy Virus RNA Qual PCR NEGATIVE (Negative); SARS COV2 PCR INHOUSE NEGATIVE (Negative)
[2025-04-01 12:02] LABS: Appearance Urine Clear; Glucose Urine UA Negative (Negative); PH 7.0 (5.0-9.0); Specific Gravity - Urine 1.025 (1.005-1.025); UMIC TRIGGER UACC YES
[2025-04-01 12:09] LABS: UACC Culture Trigger YES
[2025-04-01 13:54] LABS: Microalbum/Creatinine Ratio Ur 132.9 ug/mg cr (<30)
== END 2025-04-01 09:53 | disposition home or self-care (01) ==
LOC: HO.LAB 09:52
PROVIDERS: Internal Medicine; PCP Internal Medicine; Visit Provider Internal Medicine
DX: R09.89 Other specified symptoms and signs involving the circulatory and respiratory systems (principal); E78.5 Hyperlipidemia, unspecified; R80.9 Proteinuria, unspecified; E55.9 Vitamin D deficiency, unspecified; I63.9 Cerebral infarction, unspecified
CPT/HCPCS: 80053; 80061; 81001; 81003; 82043; 82306; 82570; 87086; 87637

== ENCOUNTER 2025-04-10 15:17 | Outpatient (AMB) | payer MEDICARE, MEDICAID, SELFPAY ==
--- NOTE | 2025-04-10 15:29 | MHC.PC.OV ---
Vital Signs 04/10/25 15:30 Height 5 ft 4 in Weight 167 lb BMI 28.7 BP 102/62 Blood Pressure Location Lt brachial Position Sitting Respiration 18 Pulse 84 Pulse Source Pulse Oximeter Temp 97.3 F Temp Source Temporal Artery Scan Pulse Oximetry (%) 96 Oxygen Delivery Method Room Air Intake Visit Reasons: Annual Exam Safety And Health Consultant Required: No Accompanied by: Self / Same As Patient Allergies dulaglutide (From Trulicity) Allergy (Intermediate, Verified 04/10/25 15:31) pruritus, swelling latex (LATEX) Allergy (Intermediate, Verified 04/10/25 15:31) Hives erythromycin base (ERYTHROMYCIN BASE) Allergy (Unknown, Verified 04/10/25 15:31) UNKNOWN Penicillins (PENICILLINS) Allergy (Unknown, Verified 04/10/25 15:31) UNKNOWN metformin Adverse Reaction (Intermediate, Uncoded 03/08/25 12:52) abdominal discomfort Tobacco use date assessed: 04/10/25 Dental Screening Dental Screen Date: 04/10/25 Did you have a dental visit in the last 12 months?: No Did you have a dental problem in the last 6 months where you did not have access to dental care?: No Was dental information given to patient?: Patient has dentist [facility] Medical History Microalbuminuria due to type 2 diabetes mellitus Mild aphasia CVA (cerebral vascular accident) Diabetes Seizures Elevated cholesterol Hypertension Ecchymosis Encounter to establish care Hx of cyst of breast Surgical History Hx of colonoscopy History of partial hysterectomy History of thyroid surgery Family History Mother Bone cancer Hypertension Diabetes Father Diabetes Hypertension Maternal Aunt Breast cancer, Onset Age: 49 Family/Other Mental health disorder Social History Housing: Apartment Alcohol intake: never Patient Tobacco Use Status: Never used Tobacco e-Cigarette/Vaping Use: Never Used Second Hand Smoke Exposure: No service: No Current occupational status: unemployed Cognitive needs: Yes (cane ) Hearing needs: No Vision needs: Yes (glasses) Female Reproductive History Menstrual Age of Menarche: 12 Questionnaire Thrive Questionnaire Date Thrive assessed: 03/06/25 I am a: Patient What is your living situation today?: I have a steady place to live Within the past 12 months, did the food you bought not last and you didn't have the money to get more?: Sometimes True Within the past 12 months, did you worry whether your food would run out before you got money to buy more?: Often true Do you have trouble paying for medicines?: No Do you have trouble getting transportation to medical appointments?: No Do you have trouble paying your heating and electricity bill?: Yes Do you have trouble taking care of your child, family member or friend?: No Do you have trouble with day-to-day activities such as bathing, preparing meals, shopping, managing finances, etc.?: No Are you currently unemployed and looking for a job?: I choose not to answer this question Are you interested in more education?: I choose not to answer this question Currently or been in a relationship where the following occur: I choose not to answer THRIVE Score: 3 RAMESH-7 AMB Questionnaire RAMESH-7 Date RAMESH - 7 assessed: 09/28/24 Source: Developed by Drs. Lamont Beltrán, Pati Jaimes, Bebeto Jerry and colleagues, with an educational lorena from [employer]. Physical exam (Primary Care) Vital Signs: Last Vital Signs Temp 97.3 F 04/10/25 15:30 Pulse 84 04/10/25 15:30 Resp 18 04/10/25 15:30 BP 102/62 04/10/25 15:30 Pulse Ox 96 04/10/25 15:30 Oxygen Delivery Method Room Air 04/10/25 15:30 BMI result Body Mass Index 28.7 Tobacco/Smoking Status: Tobacco use Status Tobacco use date assessed 04/10/25 04/10/25 15:33 Patient Tobacco Use Status Never used Tobacco 04/10/25 15:29 e-Cigarette/Vaping Use Never Used 04/10/25 15:29 Thrive Assessment: Date of Thrive Assessment Date Thrive assessed 03/06/25 04/10/25 15:29 Currently or been in a relationship where the following occur: I choose not to answer Coding
[2025-04-10 15:30] VITALS: BP 102/62; PULSE 84; RESP 18; TEMP 36.3; O2SAT 96; BMI 28.7
--- NOTE | 2025-04-10 15:42 | A.OFFVIS_ITS ---
Intake Vital Signs 04/10/25 15:30 04/10/25 15:46 Height 5 ft 4 in Weight 167 lb BMI 28.7 28.7 BP 102/62 Blood Pressure Location Lt brachial Position Sitting Respiration 18 Pulse 84 Pulse Source Pulse Oximeter Temp 97.3 F Temp Source Temporal Artery Scan Pulse Oximetry (%) 96 Oxygen Delivery Method Room Air Intake Visit Reasons: [employer] Internship Required: No Accompanied by: Self / Same As Patient Allergies dulaglutide (From Trulicity) Allergy (Intermediate, Verified 04/10/25 16:04) pruritus, swelling latex (LATEX) Allergy (Intermediate, Verified 04/10/25 16:04) Hives erythromycin base (ERYTHROMYCIN BASE) Allergy (Unknown, Verified 04/10/25 16:04) UNKNOWN Penicillins (PENICILLINS) Allergy (Unknown, Verified 04/10/25 16:04) UNKNOWN metformin Adverse Reaction (Intermediate, Uncoded 04/10/25 16:04) abdominal discomfort Medication List - Last Reconciled 04/10/25 by Stephanie Phipps MD aspirin (Aspir-Siri) 325 mg PO DAILY blood-glucose meter (Accu-Chek Cindy Plus Meter) As directed blood-glucose meter (FreeStyle Lite Meter kit) As directed checks 1 X/day flash glucose scanning reader (FreeStyle Jolene 2 [place]) As directed flash glucose sensor (FreeStyle Jolene 2 Sensor kit) As directed FreeStyle Lite Strips (blood sugar diagnostic) As directed checks 1 X/day NS lamotrigine 150 mg PO BID 90 days lancets (FreeStyle Lancets) As directed checks 1 X/day levetiracetam 1,000 mg PO BID lisinopril 2.5 mg PO DAILY 90 days multivitamin (One-A-Day Essential tablet) 1 tab PO DAILY Ozempic (semaglutide) 1 mg (0.75 mL) subcut QWEEK NS pantoprazole 40 mg PO DAILY polyethylene glycol 3350 (Miralax) 17 grams PO DAILY rosuvastatin 40 mg PO DAILY 90 days tizanidine 2 mg PO Q8H PRN HPI HPI Comments History of Present Illness Details The patient is a 55-year-old female presenting with a Medicare wellness exam. She has a history of diabetes mellitus, with her last hemoglobin A1c recorded at 6.4% last month, indicating good control of her condition. Her cholesterol levels were recently checked, with a total cholesterol of 124 mg/dL and LDL cholesterol at 85 mg/dL, which is close to the target of 70 mg/dL. The patient has a history of stroke, which has resulted in some hearing loss on the right side. She requires assistance with certain activities of daily living, such as bathing and dressing, but is able to manage toileting independently. She experiences moderate depression, as indicated by a PHQ-9 score of 9/17. Her family history includes diabetes and hypertension, with her mother having from bone cancer and her father having had a heart attack. The patient is up to date with her preventative care, having received a mammogram last month and a pap smear in 2022. She has received one pneumonia vaccine and requires a second dose of the PCV20 vaccine, which is planned for today. PPP handed to patient. [place] [facility] [place] of care reviewed and updated. [facility] Medical History (Updated 04/10/25 @ 20:48 by Stephanie Phipps MD) Microalbuminuria due to type 2 diabetes mellitus Mild aphasia CVA (cerebral vascular accident) Diabetes Seizures Elevated cholesterol Hypertension Ecchymosis Encounter to establish care Hx of cyst of breast Surgical History Hx of colonoscopy History of partial hysterectomy History of thyroid surgery Family History (Updated 04/10/25 @ 16:12 by Stephanie Phipps MD) Mother Bone cancer Hypertension Diabetes Father Diabetes Hypertension Maternal Aunt Breast cancer, Onset Age: 49 Family/Other Mental health disorder Social History Housing: Apartment Alcohol intake: never Patient Tobacco Use Status: Never used Tobacco e-Cigarette/Vaping Use: Never Used Second Hand Smoke Exposure: No service: No Current occupational status: unemployed Cognitive needs: Yes (cane ) Hearing needs: No Vision needs: Yes (glasses) Female Reproductive History Menstrual Age of Menarche: 12 Questionnaire Medicare Wellness Checkup What gender do you identify with?: female During the past 4 weeks, how much have you been bothered by emotional problems such as feeling anxious, depressed, irritable, sad or downhearted, and blue?: quite a bit During the past 4 weeks, has your physical & emotional health limited your social activities with family, friends, neighbors, or groups?: not at all During the past 4 weeks, how much bodily pain have you generally had?: no pain During the past 4 weeks, was someone available to help you if you needed & wanted help?: yes, quite a bit During the past 4 weeks, what was the hardest physical activity you could do for at least 2 minutes?: moderate Can you get to places out of walking distance without help? (For eg., can you travel alone on buses, taxis or drive your car?): Yes Can you go shopping for groceries or clothes without someone's help?: No Can you prepare your own meals?: No Can you do your housework without help?: No Can you handle your own money without help?: No During the past 4 weeks, how would you rate your health in general?: good Are you having difficulties driving your car?: not applicable, I don't use a car Do you always fasten your seat belt when you are in a car?: no During past 4 weeks, have you been bothered by the following: never: Sexual problems?, Teeth or denture problems? and Problems using the telephone?, sometimes: Falling or dizzy when standing up and Tiredness or fatigue? and often: Trouble eating well? Have you fallen 2 or more times in the past year?: Yes Are you afraid of falling?: Yes Are you a smoker?: no During the past 4 weeks, how many drinks of wine, beer, or other alcoholic beverages did you have?: no alcohol at all Do you exercise for about 20 minutes 3 or more times a week?: yes, some of the time Have you been given information to help with the following?: yes: Hazards in your house that might hurt you? and no: Keeping track of your medications? How often do you have trouble taking medicines the way you have been told to take them?: I always take medicine as prescribed How confident are you that you can control & manage most of your health problems?: somewhat confident What is your race?: Other Mini Mental State Exam (MMSE) Orientation What is the (year) (season) (date) (day) (month)?: year, date, day and month Where are we (state) (county) (town or city) (hospital) (floor)?: floor Language Show patient a wristwatch & ask what it is. Repeat for pencil.: watch and pencil Ask the patient to repeat the phrase 'No ifs, ands, or buts' after you.: correct Ask the patient to 'take a piece of paper with their right hand' 'fold paper in half' 'place paper on floor': take paper in right hand, fold paper in half and place paper on floor Print the sentence 'CLOSE YOUR EYES' on a piece. If patient actually closes eyes then score.: followed written direction Give patient a blank piece of paper & ask to write a sentence. Score if it contains a noun & verb.: sentence contains subject and verb Ask patient to copy figure of intersecting pentagons exactly. Score if all 10 angles & 2 intersects are included.: all 10 angles present & 2 are intersected Score Score: 14 Activity of Daily Living Bathing - sponge bath, tub bath or shower: receives help in bathing more than one body part (or not bathed) Dressing - getting clothes from closets & drawers, including inner/outer garments & fasteners.: receives help getting clothes or getting dressed, or stays undressed Toileting - going to the 'toilet room' for urine/bowel elimination & cleaning self/arranging clothes: goes to toilet room, cleans self, arranges clothes without help Transfer: moves in & out of bed and chair without help (may use support object) Continence: controls urination/bowel movements completely by self Feeding: feeds self without help Total Score: 2 Information obtained from: patient Using telephone: independent Traveling: needs assistance Shopping: dependent Preparing meals: dependent Housework: dependent Taking medicine: dependent Managing money: dependent PHQ-9 Over the last 2 weeks, how often have you been bothered by any of the following problems? 1. Little interest or pleasure in doing things: nearly every day 2. Feeling down, depressed, or hopeless: more than half the days 3. Trouble falling or staying asleep, or sleeping too much: nearly every day 4. Feeling tired or having little energy: several days 5. Poor appetite or overeating: more than half the days 6. Feeling bad about yourself - or that you are a failure or have let yourself or your family down: several days 7. Trouble concentrating on things, such as reading the newspaper or watching television: nearly every day 8. Moving or speaking so slowly that other people could have noticed. Or the opposite - being so fidgety or restless that you have been moving around a lot more than usual: more than half the days 9. Thoughts that you would be better off or of hurting yourself in some way: not at all Total score: 17 Depression Screening Interpretation: Positive (No suicidal thoughts) Depression Screening Follow-up: Existing condition, In treatment and Follow-up Visit Requested Depression Screening Done: Yes 35945 - PHQ-9 Billing: Yes Source: Developed by Drs. Lamont Betlrán, Pati Jaimes, Bebeto Jerry and colleagues, with an educational lorena from [employer]. Review of Systems Const All systems reviewed & are unremarkable except as noted in HPI and below Card Denies chest pain at rest, Denies chest pain with activity, Denies edema, Denies irregular heart rhythm, Denies claudication, Denies dyspnea, Denies dyspnea on exertion, Denies orthopnea, Denies paroxysmal nocturnal dyspnea and Denies slow heart rate Resp Denies cough, Denies dyspnea and Denies dyspnea on exertion Physical Exam Vital Signs: Last Vital Signs Temp 97.3 F 04/10/25 15:30 Pulse 84 04/10/25 15:30 Resp 18 04/10/25 15:30 BP 102/62 04/10/25 15:30 Pulse Ox 96 04/10/25 15:30 Oxygen Delivery Method Room Air 04/10/25 15:30 BMI result Body Mass Index 28.7 Resp Effort & Inspection: normal respiratory effort Auscultation: clear to auscultation bilaterally Cardio Jugular venous distension: no JVD Rate: regular rate Rhythm: regular rhythm Heart sounds: S1 normal heart sound present and S2 normal heart sound present Neuro Romberg Test: Negative Extrem General: Yes full ROM Immunizations pneumoc 20-nash conj-dip cr(PF) 0.5 mL IM syringe Performing Provider: Stephanie Phipps MD Performing Location: [facility] Administered by: AL Dasilva on 04/10/25 16:45 Dose Route Admin Location Dispensed Lot Number Expiration Date [facility] [employer] Attacher 0.5 mL IM Left Deltoid 0.5 mL [id number] 03/20/26 6401-3664-80 [employer] Total Dispensed Waste 0.5 mL 0 % VIS Given Date VIS Provided VIS Publication Date 04/10/25 Single Vaccine 24 Eligibility Eligibility Date Funding Source Not [facility] Eligible 04/10/25 Private Assessment & Plan Assessment & Plan (1) Encounter for Medicare annual wellness exam: Code(s): Z00.00 - Encounter for general adult medical examination without abnormal findings (2) Foot callus: Code(s): L84 - Corns and callosities (3) Diabetes mellitus: Code(s): E11.9 - Type 2 diabetes mellitus without complications Qualifiers: Diabetes mellitus type: type 2 Diabetes mellitus [facility] insulin use: without [facility] use Diabetes mellitus complication status: with hyperglycemia Qualified Code(s): E11.65 - Type 2 diabetes mellitus with hyperglycemia (4) Hearing loss: Code(s): H91.90 - Unspecified hearing loss, unspecified ear (5) CVA (cerebral vascular accident): Comment: 2014 Code(s): I63.9 - Cerebral infarction, unspecified (6) Hemiparesis: Comment: Right-sided after CVA 11/2014 Code(s): G81.90 - Hemiplegia, unspecified affecting unspecified side Qualifiers: Hemiparesis etiology: late effect of cerebrovascular disease Cerebrovascular disease type: unspecified Hemiparesis laterality: unspecified Qualified Code(s): I69.959 - Hemiplegia and hemiparesis following unspecified cerebrovascular disease affecting unspecified side Plan Plan Patient was informed and verbally consented to the use of an ambient scribe for clinic note documentation during this visit. 1. Medicare wellness exam The patient has received one pneumonia vaccine and requires a second dose of the PCV20 vaccine, which is planned for today. 2.Diabetes Mellitus The patient's diabetes mellitus is currently well-controlled with a hemoglobin A1c of 6.4% as of last month. She is on Ozempic 1 mg and other medications to manage her condition. Regular monitoring of blood glucose levels and adherence t o medication are advised. 3. Stroke The patient has a history of stroke, which has resulted in hearing loss on the right side. She requires referrals to a foot doctor and a photographic specialist for further evaluation and management. 4. Hearing Loss The patient experiences hearing loss on the right side, likely secondary to her previous stroke. A referral to a photographic specialist is planned for further assessment and management. 5. Depression The patient exhibits moderate depression with a PHQ-9 score of 9/17. Further evaluation and management of her depressive symptoms are necessary. 5. Hypertension The patient's blood pressure is currently well-controlled. Continued monitoring and adherence to antihypertensive medications are recommended. Orders: Orders Lipid Panel 4 Months E78.5 - Hyperlipidemia, unspecified Microalbumin, Random (w Creat) 4 Months R80.9 - Proteinuria, unspecified Vitamin B12 and Folate 4 Months E53.8 - Deficiency of other specified B group vitamins Pneumococcal 20 Immunization Today Z23 - Encounter for immunization Vitamin D 25-OH Total 4 Months E55.9 - Vitamin D deficiency, unspecified Comprehensive Glenn. Panel Fast 4 Months E11.65 - Type 2 diabetes mellitus with hyperglycemia Referrals Speech and Hearing Referral H91.90 - Unspecified hearing loss, unspecified ear Podiatry Referral L84 - Corns and callosities Quality Reporting (2019) Depression/Bipolar (159/160/161/177) PHQ-9: Total score: 17 Coding Level of Care Code Medicare First (G0438) Est Pt Level 3 (17137) Diagnoses Encounter for Medicare annual wellness exam Z00.00 Foot callus L84 Type 2 diabetes mellitus with hyperglycemia, without long-term current use of insulin E11.65 Diabetes mellitus type: type 2 Diabetes mellitus intermediate manager insulin use: without intermediate manager use Diabetes mellitus complication status: with hyperglycemia Hearing loss H91.90 CVA (cerebral vascular accident) I63.9 Hemiparesis as late effect of cerebrovascular disease, unspecified cerebrovascular disease type, unspecified laterality I69.959 Hemiparesis etiology: late effect of cerebrovascular disease Cerebrovascular disease type: unspecified Hemiparesis laterality: unspecified Additional Codes PHQ-9 - 13775 - PHQ-9 Billing: Yes ([id number]) Time Spent (min) 36
[2025-04-10 15:46] VITALS: BMI 28.7
== END 2025-04-10 16:58 | disposition home or self-care (01) ==
PROVIDERS: PCP Internal Medicine; Visit Provider Internal Medicine
DX: Z00.00 Encounter for general adult medical examination without abnormal findings (principal); E11.65 Type 2 diabetes mellitus with hyperglycemia; I69.959 Hemiplegia and hemiparesis following unspecified cerebrovascular disease affecting unspecified side; I63.9 Cerebral infarction, unspecified; H91.91 Unspecified hearing loss, right ear; L84 Corns and callosities; Z23 Encounter for immunization

== ENCOUNTER → 2025-04-10 15:17 | Outpatient (BNVA) | payer MEDICARE, MEDICAID, SELFPAY | PROVIDERS: PCP Internal Medicine; Visit Provider Internal Medicine | DX: Z00.00 Encounter for general adult medical examination without abnormal findings (principal); E11.65 Type 2 diabetes mellitus with hyperglycemia; I10 Essential (primary) hypertension; I69.359 Hemiplegia and hemiparesis following cerebral infarction affecting unspecified side; I69.398 Other sequelae of cerebral infarction; H91.91 Unspecified hearing loss, right ear; Z23 Encounter for immunization | CPT/HCPCS: 90471; 90677; 96127; 99212 ==

== ENCOUNTER → 2025-04-12 18:20 | Outpatient (BNV) | payer MEDICARE, MEDICAID, SELFPAY | PROVIDERS: PCP Internal Medicine; Visit Provider Radiology Diagnostic Radiology | DX: I69.10 Unspecified sequelae of nontraumatic intracerebral hemorrhage (principal); I63.512 Cerebral infarction due to unspecified occlusion or stenosis of left middle cerebral artery | CPT/HCPCS: 70551 ==

== ENCOUNTER 2025-04-12 18:32 | Outpatient (REF) | payer MEDICARE, MEDICAID, SELFPAY ==
--- NOTE | ~2025-04-12 | MR_ITS ---
EXAMINATION: MR BRAIN WITHOUT CONTRAST CLINICAL INFORMATION: R51.9. Headache. COMPARISON: Correlated to CT dated May 15, 2019. TECHNIQUE: MRI of the brain was obtained using routine sequences without contrast. FINDINGS: No restricted diffusion. Macrocystic encephalomalacia, left frontal temporal with associated susceptibility signal and hyperintense T2 FLAIR signal related to old microhemorrhages and gliosis. There is ex vacuo dilatation left lateral ventricle and wallerian degeneration into the left ventral medulla oblongata. No acute intracranial hemorrhage, mass effect, midline shift, hydrocephalus or herniation. There are a few scattered subcortical deep white matter hyperintense T2 FLAIR signal right centrum semiovale and valladares radiata. Flow-void signal within the main cerebral vessels is normal. Small asymmetric caliber left MCA. Prominent posterior communicating artery diameter, bilaterally. Hyperintense T1 and T2 FLAIR signal within the left internal jugular bulb suggesting slow flow. Normal position of the cerebellar tonsils. Sellar/suprasellar region to straighten no signal abnormality or masses. MR/MR head/brain wo con IMPRESSION: No acute intracranial hemorrhage. No acute stroke/nonhemorrhagic ischemia. 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 Electronically signed by: Jose A Navarro MD 04/13/2025 07:00 AM EDT
--- OUTSIDE RECORDS SUMMARY | 2025-04-12 18:35 | XMS_ITS | Encounter Summary ---
Author Organization [facility] Address [address] [place] [address] Phone Care Team Providers Care Hosiery Operator Name Role Phone Claudio Mott MD Primary Care Provider [phone] Estephania Padilla NP Primary Care Provider [phone] Encounter Details Date Type Department Care Team (Late st Contact Info) Description 04/09/2021 Procedure Pass [facility], [facility] [address] [place] [address] Social History Tobacco Use Types Packs/Day Years [...] documented as of this encounter Care Teams Hosiery Operator Relationship Specialty Start Date End Date Claudio Mott MD [address] [place] [address], [address] [place] [address] [email or web address] PCP - General Neurology 04/16/21 06/30/22 Estephania Padilla NP [address] [address] PCP - General 07/01/22 documented as of this encounter Additional Source Comments The information contained in this document represents components of the legal health record. It is not the complete legal health record.[facility]
--- OUTSIDE RECORDS SUMMARY | 2025-04-12 18:35 | XMS_ITS | Clinical Summary ---
Author Organization [facility] Address [email or web address] [place] [address] Phone Care Team Providers Care Bumper Straightener Name Role Phone Estephania Padilla NP Primary Care Provider [phone] Allergies Active Allergy Reactions Criticality Noted Date [...] Description 03/27/2025 1:00 PM EDT Office Visit [facility] Neurology [address] [place] [address] [place] [address] Prem Carrillo MD Seizure as late effect of cerebrovascular accident (CVA) (Primary Dx); Aphasia as late effect of cerebrovascular accident; Hx of ischemic left MCA stroke 02/12/2025 Refill [facility] Neurology [address] [place] [address] [place] [address] Prem Carrillo MD Medication Refill from Last [...] EST) SODIUM 135 133 - 146 mmol/L [facility] CHLORIDE 100 96 - 108 mmol/L [facility] POTASSIUM 4.1 3.3 - 5.1 mmol/L [facility] CO2 26 21 - 35 mmol/L [facility] BUN 11 6 - 19 mg/dL [facility] CREATININE 0.80 0.5 - 1.5 mg/dL [facility] GLUCOSE 158(H) 70 - 99 mg/dL [facility] CALCIUM 9.3 8.4 - 10.3 mg/dL [facility] EGFR 90 >59 mL/min/1.7 3m2 [facility] Comment:Estimated glomerular filtration rate calculated using the CKD-EPI refit equation. ANION GAP 13 10 - 20 mmol/L [facility] Blood 07/05/2021 12:3 1 PM EST 07/05/2021 12:45 PM EST us Giuliana Krishnan PA-C LAB BLOOD ORDERABLES Fi nal Result [facility] [address] [place], [place] [phone] from Last 3 Months or Most Recently Relevant to Health Maintenance Insurance MEDICARE PART A & B [place] [facility] [place] [facility] [place] & B [facility] Care Teams Bumper Straightener Relationship Specialty Start Date End Date Estephania Padilla NP [address] [place] [address] PCP - General 07/01/22 Additional Source Comments The information contained in this document represents components of the legal health record. It is not the complete legal health record.[facility]
--- OUTSIDE RECORDS SUMMARY | 2025-04-12 18:35 | XMS_ITS | Clinical Summary ---
Author Organization [facility] Address [address] [facility] [address] [place] [address] Phone Care Team Providers Care Blanchard Grinder Operator Name Role Phone Stephanie García MD Primary Care Provider [phone] Allergies Active Allergy Reactions Criticality Noted Date [...] no shunt 03/23/15- AC management transferred to [facility]. 05/29/16- warfarin stopped per Neuro. On asa 81 mg daily. Seizure 02/08/2015 Overview (10/07/2022): effexor and neurontin started at [facility] and were stopped due to [...] Visit [facility] [address] [address] Gianna aMrt ARNP Chronic kidney disease, stage 2 (mild) [...] Office Visit [facility] [address] [phone] Gianna Mart ARNP [address] [address] Health Maintenance Due Date Last [...] Urine 11-30(A) 0 - 5 /hpf [facility] RBC, Urine 3-10(A) 0 - 2 /hpf [facility] Squamous Epithelial, Urine >10(A) 0 - 10 /hpf [facility] Casts None seen None seen /lpf [facility] Crystals Present(A) N/A [facility] Crystal Type Calcium Oxalate N/A [facility] Bacteria, Urine Few None seen/Few [facility] 01/26/2025 3:08 PM EDT 01/26/2025 Gianna Mart [facility] LAB MICROBIOLOGY - GENERAL ORDERABLES Final Result [facility] [address] [place] [address] * Iron Panel (Fe, TIBC, TSAT) (01/26/2025 3:08 PM EDT) Pathologist [facility] TIBC 301 250 - 450 ug/dL [facility] UIBC 241 131 - 425 ug/dL [facility] Iron 60 27 - 159 ug/dL [facility] Iron Saturation (TSat) 20 15 - 55 % [facility] Blood specimen (specimen) Venous blood / Unknown 01/26/2025 3:08 PM EDT 01/26/2025 [facility] BLOOD ORDERABLES Final Result Performing Organization Address City/[facility]/ZIP Co de Phone Number [facility] [address] [place] [address] * (ABNORMAL) Urine Protein / creatinine ratio (01/26/2025 3:08 PM EDT) Creatinine, Ur 329.0 Not Estab. mg/dL [facility] Protein, Ur 138.8 Not Estab. mg/dL [facility] Urine Protein/Creati nine Ratio 422(H) 0 - 200 mg/g creat [facility] Urine specimen (specimen) Urine specimen obtained by clean catch procedure / Unknown 01/26/2025 3:08 PM EDT 01/26/2025 Gianna [facility] LAB URINE ORDERABLES Final Result [facility] [address] [place] [address] * Vitamin D 25 hydroxy (01/26/2025 3:08 PM EDT) Vitamin D, 25-OH, Total 44.5 30.0 - 100.0 ng/mL [facility] Comment: Vitamin D deficiency has been defined by the [place] of Medicine and an Endocrine Society practice guideline as a level of serum 25-OH vitamin D less than 20 ng/mL (1,2). The Endocrine Society went on to further define vitamin D insufficiency as a level between 21 and 29 ng/mL (2). 1. IOM ([place] of Medicine). 2010. Dietary reference intakes for [...] LAB BLOOD ORDERABLES Final Result [facility] [address] [place] [address] * (ABNORMAL) Urinalysis with microscopic (01/26/2025 3:08 PM EDT) Specific Norman, Urine >=1.030(A) 1.005 - 1.030 [facility] [phone] pH Urine 5.5 5.0 - 7.5 [facility] [phone] Color, Urine Yellow Yellow [facility] [phone] Appearance Urine Cloudy(A) Clear [facility] WBC Esterase Urine 1+(A) Negative [facility] Protein, Ur 2+(A) Negative/Tra ce [facility] [phone] Glucose, Ur Negative Negative [facility] [phone] Ketones, Urine Trace(A) Negative [facility] [phone] Blood Urine 2+(A) Negative [facility] [phone] Bilirubin Urine Negative Negative [facility] Urobilinogen Urine 1.0 0.2 - 1.0 mg/dL [facility] Nitrite, Urine Negative Negative [facility] [phone] Microscopic Examination See below: [facility] Comment:Microscopic was asher cated and was performed. Urine specimen (specimen) Urine specimen obtained by clean catch procedure / Unknown 01/26/2025 3:08 PM EDT 01/26/2025 Gianna [facility] LAB URINE ORDERABLES Final Result [facility] [address] [place] [address] * CBC (01/26/2025 3:08 PM EDT) WBC 7.4 3.4 - 10.8 x10E3/uL [facility] RBC 4.47 3.77 - 5.28 x10E6/uL [facility] Hemoglobin 13.2 11.1 - 15.9 g/dL [facility] Hematocrit 39.0 34.0 - 46.6 % [facility] MCV 87 79 - 97 fL [facility] MCH 29.5 26.6 - 33.0 pg [facility] MCHC 33.8 31.5 - 35.7 g/dL [facility] RDW 12.7 11.7 - 15.4 % [facility] Platelets 361 150 - 450 x10E3/uL [facility] Blood specimen (specimen) Venous blood / Unknown 01/26/2025 3:08 PM EDT 01/26/2025 [facility] LAB BLOOD ORDERABLES Final Result [facility] [address] [place] [address] * PTH, intact (01/26/2025 3:08 PM EDT) PTH 27 15 - 65 pg/mL [facility] Blood specimen (specimen) Venous blood / Unknown 01/26/2025 3:08 PM EDT 01/26/2025 [facility] LAB BLOOD ORDERABLES Final Result [facility] [address] [place] [address] * (ABNORMAL) Ferritin (01/26/2025 3:08 PM EDT) Ferritin 257(H) 15 - 150 ng/mL [facility] Blood specimen (specimen) Venous blood / Unknown 01/26/2025 3:08 PM EDT 01/26/2025 Gianna Mart [facility] LAB BLOOD ORDERABLES Final Result [facility] [address] [place] [address] * (ABNORMAL) Renal function panel (01/26/2025 3:08 PM EDT) Glucose 104(H) 70 - 99 mg/dL [facility] BUN 14 6 - 24 mg/dL [facility] Creatinine 0.90 0.57 - 1.00 mg/dL [facility] eGFR CKD-EPI CR 2020 77 >59 mL/min/1.7 3 [facility] BUN/Creatinine Ratio 16 9 - 23 [facility] Sodium 142 134 - 144 mmol/L [facility] Potassium 4.2 3.5 - 5.2 mmol/L [facility] Chloride 101 96 - 106 mmol/L [facility] Bicarbonate (CO2) 24 20 - 29 mmol/L [facility] Calcium 9.6 8.7 - 10.2 mg/dL [facility] Phosphorus 3.5 3.0 - 4.3 mg/dL [facility] Albumin 4.7 3.8 - 4.9 g/dL [facility] Blood specimen (specimen) Venous blood / Unknown 01/26/2025 3:08 PM EDT 01/26/2025 Gianna [facility] LAB BLOOD ORDERABLES Final Result [facility] [address] [place] [phone] from Last 3 Months Insurance Medicare Medicaid [place] Care Teams Blanchard Grinder Operator Relationship Specialty Start Date End Date Stephanie García MD [address] [place] [address] PCP - General Internal Medicine 01/05/24
--- OUTSIDE RECORDS SUMMARY | 2025-04-12 18:35 | XMS_ITS | Clinical Summary ---
Author Organization [facility] Address [address] [place] [address] Care Team Providers Care Supervisor Decorating Name Role Phone Mick Vidal MD Primary Care Provider [phone] Surgical History Surgery Date Site/Laterality Comments OTHER [...] 2016 OTHER SURGICAL HISTORY 12/2016 N/A PROCEDURE: WI TOTAL ABDOMINAL HYSTERECT W/WO RMVL TUBE OVARY; COMMENT: Sites. Salpingectomy OTHER SURGICAL HISTORY Right PROCEDURE: WI PRTL THYROID LOBECTOMY UNI W/WO ISTHMUSECTOMY BREAST SURGERY 2019 Left PROCEDURE: WI UNLISTED PROCEDURE BREAST; COMMENT: fibroademona Medical History [...] Recently Relevant to Health Maintenance Care Teams Supervisor Decorating Relationship Specialty Start Date End Date Mick Vidal MD [address] [place] [address] PCP - General Internal Medicine 10/18/21
--- OUTSIDE RECORDS SUMMARY | 2025-04-12 18:35 | XMS_ITS | Encounter Summary ---
Author Organization [facility] Address [address] [facility] [address] [place] [address] Phone Care Team Providers Care Postal Mail Carrier Name Role Phone Claudio Mott MD Primary Care Provider [phone] Estephania Padilla NP Primary Care Provider [phone] Reason for Referral * MRI/CAT Scan - Closed Specialty Diagnoses / Procedures Referred By Shalom kessler Referred To Contact Radiology Diagnoses Blurred vision Nonintractable headache, unspecified chronicity pattern, unspecified headache type Procedures MRI Brain Claudio Mott MD Phone: tel: fax: [email or web address] Referral ID Status Reason Start Date Expiration Date Visits Re quested Visits Authorized [id number] Closed 04/09/2021 04/09/2022 1 1 Encounter Details Date Type Department Care Team (Latest Contact Info) Description 04/09/2021 Transcribe Orders Virtual Department [address] [place] [address] [phone] Claudio Mott MD [address] [place] [address], [address] [place], [place] [phone] [email or web address] Blurred vision (Primary Dx); Nonintractable headache, [...] right are similar to prior study. No [id number] blood or fluid collection, mass, or mass [...] and diffusion-weighted imaging with ADC map, coronal [id number] and STIR, sagittal T1 sequences were obtained. [...] the right are similar toprior study. No [id number] blood or fluid collection, mass, or masseffect [...] documented as of this encounter Care Teams Postal Mail Carrier Relationship Specialty Start Date End Date Claudio Mott MD [address] [place] [address], [address] [place] [address] [email or web address] PCP - General Neurology 04/16/21 06/30/22 Estephania Padilla NP [address] [address] PCP - General 07/01/22 documented as of this encounter Additional Source Comments The information contained in this document represents components of the legal health record. It is not the complete legal health record.[facility]
== END 2025-04-12 18:33 | disposition home or self-care (01) ==
LOC: HO.MRI 18:32
PROVIDERS: PCP Internal Medicine; Visit Provider Internal Medicine
DX: R51.9 Headache, unspecified (principal); I63.9 Cerebral infarction, unspecified
CPT/HCPCS: 70551

== ENCOUNTER 2025-04-17 10:47 | Observation (INO) | payer MEDICARE, MEDICAID, SELFPAY ==
[2025-04-17] VITALS (7 sets, daily range): BP systolic 129–150; BP diastolic 75–95; PULSE 78–95; RESP 12–20; TEMP 36.9; O2SAT 95–99; BMI 27.2; BMI 28.3
--- NOTE | ~2025-04-17 | CT_ITS ---
EXAMINATION: CTA NECK WITH CONTRAST (STROKE) CTA BRAIN WITH CONTRAST (STROKE) CLINICAL INFORMATION: Change in mental status. Headache. Dizziness. Prior strokes. COMPARISON: CT soft tissue neck and head dated May 15, 2019. TECHNIQUE: CTA of the head and neck was performed in the axial plane from the mediastinum to the skull vertex using 70 mL Omnipaque 350 intravenous contrast. Additional reformatted multiplanar images including maximum intensity projection MIP images are generated on the CT workstation. This CT examination was performed using dose optimization techniques as appropriate, variously including the following: *Automated exposure control *Adjustment of mA and/or kV according to patient size (this includes techniques or standardized protocols for targeted exams where dose is matched to indication/reason for exam; i.e. extremities or head) *Use of iterative reconstruction technique. DLP: 680 mGy centimeter. FINDINGS: The degree of stenosis determined by criteria similar to NASCET. Chest CTA: Incomplete evaluation of the thoracic aortic arch. Neck CTA: Right CCA: Tortuosity. Normal patency. No focal stenosis. No intimal flap. Right ICA: Small calcified plaque. Normal patency. No focal stenosis. No intimal flap. Left CCA: Tortuosity. Normal patency. No focal stenosis. No intimal flap. Left ICA: Normal patency. No focal stenosis. No intimal flap. Tortuosity. V1/V2 segments: Normal patency. No focal stenosis. No intimal flap. Small caliber. Codominant. Brain CTA: Anterior cerebral circulation: ICAs: Normal patency. No focal stenosis. No abrupt cut off. No vascular irregularity at the ICA terminus. MCA's: Small-caliber, left MCA. Normal patency. No focal stenosis. No abrupt cut off. Decreased number of vessels in the opercular branches of the left MCA. ACAs: Absent/atrophic atretic left A1 segment. Normal patency. No focal stenosis. No abrupt cut off. Anterior communicating artery is patent. There is a 2.2 mm contrast enhanced abnormality at the left A2 segment origin. Posterior communicating arteries are patent and robust. Ophthalmic arteries are patent without vascular irregularity at the origin. Posterior cerebral circulation: V3/V4 segments: Small-caliber. Normal patency. No focal stenosis. No intimal flap. Posterior inferior cerebral arteries are patent without gross irregularity. Basilar artery is patent with small caliber. Superior cerebellar arteries are patent. die barber: Hypoplastic right P1 segment. Normal enhancement pattern. No focal stenosis or abrupt cut off. Ancillary findings: Normal enhancement pattern of the main cerebral venous sinuses without gross intraluminal filling defects. Encephalomalacia related to old vascular insult, left MCA and likely right superior cerebellar artery. Heterogeneous nodular enlarged left thyroid lobe and thymus with multiple heterogeneous nodule. Absent right thyroid lobe likely thyroidectomy. Pulmonary patchy groundglass. Multilevel cervical spondylosis C3 C7 pronounced at C5-6 and C4-5 levels. 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 CT/CT angio head neck STROKE IMPRESSION: No main cerebral artery occlusion or embolus. No high degree stenosis or dissection, extracranial arteries. Questionable 2.2 aneurysm, left A2 segment. Heterogeneous nodular enlarged left thyroid lobe and isthmus Questionable of fibrous dysplasia versus dentigerous cystic lesion, right first maxillary molar.. This critical test result is communicated to: Emergency physician Dr. Dalila Rinaldi via [employer] connect at 11:50 AM on April 17, 2025. Electronically signed by: Jose A Navarro MD 04/17/2025 12:04 PM EDT
--- NOTE | ~2025-04-17 | XR_ITS ---
EXAMINATION: XR CHEST CLINICAL INFORMATION: weakness COMPARISON: September 28, 2024 TECHNIQUE: Frontal view of the chest was obtained. FINDINGS: No significant abnormality is noted involving the heart, lungs, mediastinum, bony thorax or soft tissues. Surgical clips are visible in the lateral aspect of the left upper quadrant. XR/XR chest 1V IMPRESSION: No acute disease Electronically signed by: Sameer Martin MD 04/17/2025 11:54 AM EDT
--- NOTE | ~2025-04-17 | CT_ITS ---
EXAMINATION: CT HEAD WITHOUT CONTRAST CLINICAL INFORMATION: concern for ICH altered dizzy COMPARISON: May 16, 2019. TECHNIQUE: Contiguous axial imaging was performed from the skull base to vertex without intravenous administration of contrast. This CT examination was performed using dose optimization techniques as appropriate, variously including the following: *Automated exposure control *Adjustment of mA and/or kV according to patient size (this includes techniques or standardized protocols for targeted exams where dose is matched to indication/reason for exam; i.e. extremities or head) *Use of iterative reconstruction technique DLP: 833 mGy-cm FINDINGS: No acute cortical disruption in the bony calvarium or the skull base. Old traumatic deformity, nasal bones. Probable old traumatic deformity in the posterior left lamina papyracea. Macrocystic encephalomalacia resulting in ex vacuo dilatation of the lateral ventricles involving the left frontotemporal lobes. There is wallerian degeneration extending into the left mid chaya. No acute intracranial hemorrhage, mass effect, midline shift, hydrocephalus or herniation. Malcolm-white matter differentiation is normal. Sellar/suprasellar region demonstrated no gross masses. Craniocervical junction is intact with normal position of the cerebellar tonsils. Old lacunar infarcts in the superior medial right cerebellum. There is no air-fluid levels in the paranasal sinuses. There is a 1.7 cm groundglass bone lesion in the periapical right first molar, maxilla. Tympanic cavities and mastoid air cells are aerated. Nonspecific prominent cervical lymph nodes. Probable tonsillith, left palatine tonsils. CT/CT Head for ICH IMPRESSION: No acute intracranial hemorrhage. Prior vascular insult, left MCA territory. Prior vascular insult, right superior cerebellar artery territory. 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 Electronically signed by: Jose A Navarro MD 04/17/2025 11:14 AM EDT
--- NOTE | 2025-04-17 10:48 | ECG_ITS ---
Test Reason : stroke sx Blood Pressure : */* mmHG Vent. Rate : 86 BPM Atrial Rate : 86 BPM P-R Int : 170 ms QRS Dur : 68 ms QT Int : 340 ms P-R-T Axes : 59 20 26 degrees QTcB Int : 406 ms Normal sinus rhythm Normal ECG When compared with ECG of 17-Sep-2024 00:56, No significant change was found Referred By: Dalila Rinaldi Electronically Signed By: WES PITTS
--- NOTE | 2025-04-17 10:53 | ED.AMS ---
HPI - Altered Mental Status General Chief Complaint: Altered Mental Status Stated Complaint: AMS s/p c/o headache and dizziness Source: family, EMS and old records reviewed Mode of arrival: EMS Limitations: altered mental status History of Present Illness ED Provider: NATY HPI narrative: 55 yo female with PMH of R sided hemiparesis, aphasia s/p stroke in 2014, seizures on keppra, HTN, HLD, DM, not on thinners who called her family around 1005am to say she felt dizzy and had a headache. Another family member was home but she was not with her there was a small less than 5 minute gap when patient was alone. Family member who found her states she was sitting on couch, altered, and sweaty. NO trauma noted and no seizure activity seen though she is acting postictal when she has seizures. She has been doing well no recent infections only had the pneumonia vaccine about 1 week ago. Has been having headaches had unchanged MRI 04/12/25. She always takes her medications. MD complaint: altered mental status, confusion and decreased responsiveness Onset (ago): minute(s) ([employer]) Timing confirmed by: family member Severity: severe Consistency of symptoms: waxing and waning Context: seizure disorder Associated symptoms: denies other symptoms Related Data Home Medications ?Medication ?Instructions ?Recorded ?Confirmed aspirin 325 mg tablet,delayed 325 mg PO DAILY 11/27/21 04/10/25 release (Aspir-Siri) multivitamin (One-A-Day Essential 1 tab PO DAILY 11/27/21 04/10/25 tablet) Previous Rx's ?Medication ?Instructions ?Recorded blood-glucose meter (Accu-Chek #1 ea 01/23/22 Cindy Plus Meter) lamotrigine 150 mg tablet 150 mg PO BID 90 days #180 tabs 09/03/22 levetiracetam 1,000 mg tablet 1,000 mg PO BID #180 tabs 10/06/22 flash glucose scanning reader #1 ea 05/06/23 (FreeStyle Jolene 2 [place]) flash glucose sensor (FreeStyle #1 ea 05/06/23 Jolene 2 Sensor kit) blood-glucose meter (FreeStyle #1 ea 03/30/24 Lite Meter kit) lancets 28 gauge (FreeStyle #100 ea 03/30/24 Lancets) pantoprazole 40 mg tablet,delayed 40 mg PO DAILY #90 tabs 08/29/24 release polyethylene glycol 3350 17 17 g PO DAILY #850 grams 08/29/24 gram/dose oral powder (Miralax) tizanidine 2 mg capsule 2 mg PO Q8H PRN muscle spasticity 09/28/24 #14 caps Ozempic 1 mg/dose (4 mg/3 mL) 1 mg (0.75 mL) subcut QWEEK #9 mL 10/26/24 subcutaneous pen injector (semaglutide) rosuvastatin 40 mg tablet 40 mg PO DAILY 90 days #90 tabs 12/07/24 FreeStyle Lite Strips (blood sugar #100 ea 02/12/25 diagnostic) lisinopril 2.5 mg tablet 2.5 mg PO DAILY 90 days #90 tabs 03/13/25 Allergies Allergy/AdvReac Type Severity Reaction Status Date / Time [facility] Allergy Intermediate pruritus, Verified 04/17/25 11:49 swelling latex (LATEX) Allergy Intermediate Hives Verified 04/17/25 11:49 erythromycin base Allergy Unknown UNKNOWN Verified 04/17/25 11:49 (ERYTHROMYCIN BASE) Penicillins (PENICILLINS) Allergy Unknown UNKNOWN Verified 04/17/25 11:49 metformin AdvReac Intermediate abdominal Uncoded 04/10/25 16:04 discomfort Review of Systems Review of Systems: ROS unable to be obtained due to altered mental status [facility] Past Medical History Attestation statement: The following information was validated with the patient. Source: old records reviewed Medical History Microalbuminuria due to type 2 diabetes mellitus Mild aphasia CVA (cerebral vascular accident) Diabetes Seizures Elevated cholesterol Hypertension Ecchymosis Encounter to establish care Hx of cyst of breast Surgical History Hx of colonoscopy History of partial hysterectomy History of thyroid surgery Family History Family History (Updated 04/10/25 @ 16:12 by Stephanie Phipps MD) Mother Bone cancer Hypertension Diabetes Father Diabetes Hypertension Maternal Aunt Breast cancer, Onset Age: 49 Family/Other Mental health disorder Social History Social History Housing: Apartment Alcohol intake: never Patient Tobacco Use Status: Never used Tobacco e-Cigarette/Vaping Use: Never Used Second Hand Smoke Exposure: No Advance Directives: No Advance Directives Information Provided: Yes service: No Current occupational status: unemployed Cognitive needs: Yes (cane ) Hearing needs: No Vision needs: Yes (glasses) Physical Exam ED Vital Signs: Vital Signs - 24 hr 04/17/25 10:50 04/17/25 11:16 04/17/25 11:50 Temperature 98.5 F Pulse Rate 94 89 93 Respiratory Rate 20 20 12 Blood Pressure 150/81 H 146/87 H 134/75 Pulse Oximetry 95 98 99 Oxygen Delivery Method Room Air Room Air Room Air 04/17/25 12:05 04/17/25 12:27 04/17/25 12:35 Temperature Pulse Rate 87 86 83 Respiratory Rate 12 12 12 Blood Pressure 129/85 138/85 141/78 H Pulse Oximetry 99 99 98 Oxygen Delivery Method Room Air Room Air Room Air BMI result Body Mass Index 27.2 Appearance: somnolent but wakes with voice and tactile stimuli, confused, moderate. No acute distress. Lip smacking on arrival initially gazing at R side Eyes: Pupils equal, round and reactive to light. does not allow me to open eyes ENT: Pharynx normal. no blood noted, atraumatic Neck: Normal inspection. Neck supple. CVS: Normal heart rate and rhythm. Pulses normal. Respiratory: No respiratory distress. Breath sounds normal. Abdomen: Soft and nontender. Skin: Skin warm and diaphoretic Normal skin color. Extremities: No lower extremity edema. Neuro: moaning, R sided hemiparesis NIH Stroke Scale Internal: Initial- Upon Arrival Level of Consciousness: Not Alert; but arousable by minor stimulation Level of Consciousness Questions: Answers neither question correctly Level of Consciousness Commands: Performs neither task correctly Best Gaze: Partial gaze palsy Visual: No visual loss Facial Palsy: Normal Motor Arm (Right): No movement Motor Arm (Left): Some effort against gravity Motor Leg (Right): No movement Motor Leg (Left): Some effort against gravity Limb Ataxia: Absent Sensory: Normal Best Language: Mild to moderate aphasia Dysarthia: Mild to moderate dysarthria Extinction and Inattention: Visual, tactile, auditory, spatial, or personal inattention Score: 21 Course Course Course Narrative: aspirin held as patient is on daily aspirin and took her medications this AM Medications Administered Discontinued Medications Generic Name Dose Route Start Last Admin Trade Name Freq PRN Reason Stop Dose Admin Levetiracetam 1,000 mg in 100 mls @ 400 mls/hr 04/17/25 11:18 04/17/25 12:26 Keppra IV 04/17/25 11:32 Infused ONCE ONE Infusion Midazolam HCl 2 mg 04/17/25 11:18 04/17/25 11:15 Midazolam Hcl 2 Mg/2 Ml Vial IVPUSH 04/17/25 11:19 2 mg ONCE ONE Administration Ondansetron HCl 4 mg 04/17/25 11:18 04/17/25 11:53 Ondansetron Hcl 4 Mg/2 Ml Vial IVPUSH 04/17/25 11:19 Not Given ONCE ONE Medical Decision Making Medical Decision Making [facility] Narrative: 55 yo female with PMH of R sided hemiparesis, aphasia s/p stroke in 2014, seizures on keppra, HTN, HLD, DM, not on thinners now here with headache/dizziness but also altered, initial deviated gaze and lip smacking - at this time her exam is most consistent with postictal state vs ICH. I have ordered stroke for ICH/LVO as well as IV versed, IV keppra She is not a candidate for TNK given concern for seizure at home and low susp for stroke. She did improve with IV versed Differential Diagnosis Differential Diagnoses: The differential diagnosis associated with the presentation includes ICH, seizure Admission/Observation Consideration of admission/observation: Escalation of care including admission/observation considered no further seizure activity not at baseline, will admit Consult Healthcare Provider Management of the patient was discussed with: Hospitalist and Clinical Services Manager neurology - 2mm aneurysm nothing to do Lab Data [facility] Lab Attestation statement: I reviewed the patient's lab results. 04/17/25 12:01 04/17/25 12:01 Labs: Lab Results 04/17/25 04/17/25 04/17/25 Range/Units 10:49 10:51 12:00 WBC (4.8-10.8) X10*3/uL RBC (4.20-5.50) X10*6/uL Hgb (12.0-16.0) g/dl Hct (37.0-47.0) % MCV (80.0-98.0) fL MCH (27.0-33.0) pg MCHC (31.0-35.0) g/dl RDW (11.0-16.0) % Plt Count (160-400) X10*3/uL MPV (9.4-12.3) fL Immature Gran % (Auto) (0.0-0.4) % Neut % (Auto) (45-73) % Lymph % (Auto) (20-40) % [place] % (Auto) (2-11) % Eos % (Auto) (0-4) % Baso % (Auto) (0-2) % Lymph # (Auto) (1.2-4.9) X10*3/uL [place] # (Auto) (0.1-1.2) X10*3/uL Eos # (Auto) (0.0-0.4) X10*3/uL Baso # (Auto) (0.0-0.2) X10*3/uL Abs Immat Gran (auto) (0.00-0.03) X10*3/uL Absolute Neuts (auto) (2.0-8.3) x10*3/uL Absolute Nucleated RBC (0.0-0.012) X10*3/uL Nucleated RBC % (auto) (0.0-0.2) /100WBC PT (10.9-12.4) SEC Whole Blood PT 12.1 (11.1-13.5) sec INR (0.9-1.1) Whole Blood INR 1.0 (0.9-1.1) VBG pH (7.32-7.43) VBG pCO2 mmHg VBG pO2 mmHg VBG HCO3 (22-26) mmol/L VBG O2 Saturation % VBG Base Excess mmol/L Sodium (135-145) mmol/L Potassium (3.3-5.1) mmol/L Chloride (96-108) mmol/L Carbon Dioxide (22-29) mmol/L Anion Gap (12-20) BUN (9-16) mg/dL Creatinine (0.5-1.4) mg/dL Estim Creat Clear Calc Estimated GFR POC Glucose 127 H (60-115) mg/dL Random Glucose (60-115) mg/dL Estimat Average Glucose mg/dL Hemoglobin A1c % (<6.0) % Calcium (8.4-10.2) mg/dL Magnesium (1.6-2.6) mg/dL Total Bilirubin (0.0-1.0) mg/dL Direct Bilirubin (0.0-0.5) mg/dL AST (5-31) U/L ALT (0-31) U/L Alkaline Phosphatase (39-117) U/L C-Reactive Protein (< or = 0.50) mg/dL Total Protein (6.5-8.0) g/dL Albumin (3.5-5.0) g/dL Triglycerides (<150) mg/dL Cholesterol (<200) mg/dL LDL Cholesterol, Calc (<100) mg/dL HDL Cholesterol (>40) mg/dL TSH (0.32-4.0) uIU/mL Urine Color Urine Appearance Urine pH (5.0-9.0) Ur Specific Brush (1.005-1.025) Urine Protein (Neg-Trace) mg/dL Urine Glucose (UA) (Negative) mg/dL Urine Ketones (Negative) mg/dL Urine Blood (Negative) Urine Nitrite (Negative) Ur Leukocyte Esterase (Negative) Urine RBC (0-2) /HPF Urine WBC (0-5) /HPF Ur Squamous Epith Cells (0-2) /HPF Urine Bacteria (None Seen) Hyaline Casts (0-2) /LPF Blood Type O Positive Antibody Screen NEGATIVE 04/17/25 04/17/25 04/17/25 Range/Units 12:01 12:10 13:13 WBC 6.5 (4.8-10.8) X10*3/uL RBC 4.25 (4.20-5.50) X10*6/uL Hgb 12.3 (12.0-16.0) g/dl Hct 37.0 (37.0-47.0) % MCV 87.1 (80.0-98.0) fL MCH 28.9 (27.0-33.0) pg MCHC 33.2 (31.0-35.0) g/dl RDW 12.7 (11.0-16.0) % Plt Count 268 (160-400) X10*3/uL MPV 8.5 L (9.4-12.3) fL Immature Gran % (Auto) 0.2 (0.0-0.4) % Neut % (Auto) 48.1 (45-73) % Lymph % (Auto) 41.0 H (20-40) % [place] % (Auto) 7.2 (2-11) % Eos % (Auto) 2.6 (0-4) % Baso % (Auto) 0.9 (0-2) % Lymph # (Auto) 2.7 (1.2-4.9) X10*3/uL [place] # (Auto) 0.5 (0.1-1.2) X10*3/uL Eos # (Auto) 0.2 (0.0-0.4) X10*3/uL Baso # (Auto) 0.1 (0.0-0.2) X10*3/uL Abs Immat Gran (auto) 0.01 (0.00-0.03) X10*3/uL Absolute Neuts (auto) 3.1 (2.0-8.3) x10*3/uL Absolute Nucleated RBC 0.000 (0.0-0.012) X10*3/uL Nucleated RBC % (auto) 0.0 (0.0-0.2) /100WBC PT 12.7 H (10.9-12.4) SEC Whole Blood PT (11.1-13.5) sec INR 1.1 (0.9-1.1) Whole Blood INR (0.9-1.1) VBG pH 7.52 H (7.32-7.43) VBG pCO2 23 mmHg VBG pO2 129 mmHg VBG HCO3 19 L (22-26) mmol/L VBG O2 Saturation 99.0 % VBG Base Excess -1.5 mmol/L Sodium 141 (135-145) mmol/L Potassium 4.1 (3.3-5.1) mmol/L Chloride 108 (96-108) mmol/L Carbon Dioxide 26 (22-29) mmol/L Anion Gap 11 L (12-20) BUN 12 (9-16) mg/dL Creatinine 1.01 (0.5-1.4) mg/dL Estim Creat Clear Calc 67.2 Estimated GFR 57 POC Glucose (60-115) mg/dL Random Glucose 106 (60-115) mg/dL Estimat Average Glucose 134 mg/dL Hemoglobin A1c % 6.3 H (<6.0) % Calcium 9.5 (8.4-10.2) mg/dL Magnesium 2.2 (1.6-2.6) mg/dL Total Bilirubin 0.4 (0.0-1.0) mg/dL Direct Bilirubin 0.2 (0.0-0.5) mg/dL AST 19 (5-31) U/L ALT 21 (0-31) U/L Alkaline Phosphatase 126 H (39-117) U/L C-Reactive Protein 0.53 H (< or = 0.50) mg/dL Total Protein 6.9 (6.5-8.0) g/dL Albumin 4.2 (3.5-5.0) g/dL Triglycerides 53 (<150) mg/dL Cholesterol 118 (<200) mg/dL LDL Cholesterol, Calc 80 (<100) mg/dL HDL Cholesterol 28 L (>40) mg/dL TSH 1.11 (0.32-4.0) uIU/mL Urine Color Yellow Urine Appearance Clear Urine pH >= 9.0 (5.0-9.0) Ur Specific Brush >= 1.030 H (1.005-1.025) Urine Protein Trace (Neg-Trace) mg/dL Urine Glucose (UA) Negative (Negative) mg/dL Urine Ketones Negative (Negative) mg/dL Urine Blood Small (1+) H (Negative) Urine Nitrite Negative (Negative) Ur Leukocyte Esterase Small (1+) H (Negative) Urine RBC 11-20 H (0-2) /HPF Urine WBC 11-20 H (0-5) /HPF Ur Squamous Epith Cells 0-2 (0-2) /HPF Urine Bacteria None Seen (None Seen) Hyaline Casts 0-2 (0-2) /LPF Blood Type Antibody Screen Independent Interpretation I performed an independent interpretation of an: EKG, Plain X-Ray (no pneumonia) and CT Scan (no ICH, no LVO, small aneurysm) Interpretation: Rate: 86 Rhythm: NSR [place]: normal Normal P waves. Normal GRET[place]. Normal QRS complex. ST T wave : normal no [place], inverted T wave V1 qTC: 406 prior studies: no acute ischemia The study has been interpreted contemporaneously by me. . Radiology Impression Discussion of test interpretation with radiology: I discussed test interpretation with the radiologist and I have reviewed the radiologist's reading. Independent Historian Clinical information obtained from an independent historian. History obtained from or confirmed by: EMS and Other External Record Review External record reviewed: Inpatient record, Outpatient record, Prior outpatient labs and Prior outpatient radiology Critical Care Time Critical Care Time Critical Care Time: Yes Total Critical Care Time: 45 Attestation: Time is exclusive of separately billable procedures. Time includes: direct patient care, patient reassessment, coordination of patient care, interpretation of data (laboratory data, pulse oximetry, venous blood gases and chest xrays), review of patient's medical records, medical consultation and documentation of patient care. stroke protocol Procedures excluded from critical care time:electrocardiography. I attest to this time spent taking care of the patient Discharge Plan Discharge Clinical Impression: Seizures, Acute alteration in mental status Patient Disposition: Admitted As Inpatient Print Language: Georgian
[2025-04-17 10:57] LABS: Prothrombin Time Whole Bld POC 12.1 sec (11.1-13.5); ~PT, ~INR - Anti Coag Clinic 1.0 (0.9-1.1)
[2025-04-17 10:58] LABS: Glucose, Whole Blood 127 mg/dL (60-115)
--- NOTE | 2025-04-17 11:46 | MHC.STROKE ---
Alerted to ED for patient with AMS. Initially ED provider was concerned for bleed vs seizure. Evaluated by ED provider promptly and was taken to CT scan. CTH scan completed. Delay in obtaining CTA as patient did not have good IV access. Attempts made by RNs. Dr. Rinaldi placed #20 G with Ultrasound guidance. CTA completed once IV access obtained During CT patient with some lip smacking noted. Medicated with Versed per Dr. Rinaldi. Sister Gabriella and Daughter Kori at the bedside. They were able to offer medical hx of patient. They reported hx of CVA with right sided deficits along with some speech difficulties. Pt has hx of seizures and they report that she takes Lamotrigine and Keppra, both of which she takes as ordered. They reported that she has felt well and received her pneumonia vaccine last week. They state that she takes Ozempic for her diabetes and had her injection today. Pt is usually out of bed and active. This morning she was awake around 6 am brushing her teeth. She made herself breakfast around 9am. Her daughter reports seeing her eat around 10am. After breakfast, her sister states that she called her and said that she didn't feel well, she reports that it sounded like she was moaning on the other side of the phone. Her daughter received a call from the aunt and she went downstairs to check on her mother. She reports that she seemed to be staring off and couldn't focus. She also noted clicking of her tongue . No other social history reported. Pt ambulatory at home. Stroke Education provided. Pamphlet given. Reviewed with family. Pt unable to participate in education at this time. All questions answered.
[2025-04-17] MEDS: levETIRAcetam in NaCl (iso-os) 1,000 MG/100 ML PIGGYBACK 400 MG IV (11:48)
[2025-04-17 12:08] LABS: MANUAL DIFF FLAG NO
[2025-04-17 12:13] LABS: Venous Blood Gas Refer to POC result
[2025-04-17 12:14] LABS: VBG HCO3 19 mmol/L (22-26); VBG O2 % Saturation 99.0 %
--- NOTE | 2025-04-17 12:15 | PC.NURSE ---
Pt arrives to ED via ambulance for stroke alert at 1047. EMS reported patient was home sitting on couch when she suddenly became altered, not responding to family. She had called her sister around 1005 c/o headache and dizziness. Pt has history of seizures & prior stroke w/ right-sided deficits. Family on scene states she did not appear to have seizure. 22g IV in left hand by EMS. Pt moved to ED stretcher and taken into cat scan. POC 127. Pt eyes open, not responsive and unable to follow commands. She was moved to CT table for initial scan. Delay in obtaining CTA d/t to difficulty obtaining IV access. Dr. Rinaldi called to CT for U/S guided IV at 1110, 20g IV placed in left upper arm. Pt noted to be lip-smacking and exhibiting seizure-like activity, per Dr. Rinaldi 2 mg Versed given IV at 1115. Pt more responsive after receiving versed, able to answer yes/no questions. Plan of care on going.
[2025-04-17 12:16] LABS: Hematocrit 37.0 % (37.0-47.0); Hemoglobin 12.3 g/dl (12.0-16.0); Imm Gran Abs Auto 0.01 X10*3/uL (0.00-0.03); Imm Gran Pct Auto 0.2 % (0.0-0.4); Lymphocytes Absolute Auto 2.7 X10*3/uL (1.2-4.9); Mean Corpuscular HGB Conc 33.2 g/dl (31.0-35.0); Mean Corpuscular Hemoglobin 28.9 pg (27.0-33.0); Mean Corpuscular Volume 87.1 fL (80.0-98.0); NRBC Abs Auto 0.000 X10*3/uL (0.0-0.012); NRBC Pct Auto 0.0 /100WBC (0.0-0.2); Platelet Count 268 X10*3/uL (160-400); Red Blood Count 4.25 X10*6/uL (4.20-5.50); White Blood Count 6.5 X10*3/uL (4.8-10.8)
[2025-04-17 12:28] LABS: Anion Gap 11 (12-20); Blood Urea Nitrogen 12 mg/dL (9-16); Calcium 9.5 mg/dL (8.4-10.2); Carbon Dioxide 26 mmol/L (22-29); Chloride 108 mmol/L (96-108); Creatinine Clr Calc Pharmacy 67.2; Estimated Glomerular Filt Rate 57; Potassium 4.1 mmol/L (3.3-5.1); Sodium 141 mmol/L (135-145)
[2025-04-17 12:32] LABS: Hemoglobin A1C 228.7222 umol/L; Total Hemoglobin (HGBA1C) 5079.5434 umol/L
[2025-04-17 12:33] LABS: INTERNATIONAL NORM RATIO 1.1 (0.9-1.1); Prothrombin Time 12.7 SEC (10.9-12.4)
[2025-04-17 12:37] LABS: Alanine Aminotransferase 21 U/L (0-31); Albumin Level 4.2 g/dL (3.5-5.0); Alkaline Phosphatase 126 U/L (39-117); Aspartate Amino Transferase 19 U/L (5-31); Cholesterol 118 mg/dL (<200); HDL Cholesterol 28 mg/dL (>40); Magnesium 2.2 mg/dL (1.6-2.6); Total Protein 6.9 g/dL (6.5-8.0); Triglycerides 53 mg/dL (<150)
[2025-04-17 13:21] LABS: Appearance Urine Clear; Glucose Urine UA Negative (Negative); PH >= 9.0 (5.0-9.0); Specific Gravity - Urine >= 1.030 (1.005-1.025); UMIC TRIGGER UACC YES
[2025-04-17 13:24] LABS: UACC Culture Trigger YES
--- NOTE | 2025-04-17 14:03 | P.HPHOSP_ITS ---
History of Present Illness Date of Service: 04/17/25 Chief Complaint: Breakthrough seizure 55-year-old woman presenting to the ER after an episode of likely seizure. According to the patient's sister she received a phone call from her niece the told her that her mom was just staring off and then at 1 point started moaning. She told her niece to call 911. Upon arrival it appeared that patient may have been either seizing or postictal, she was given Versed. During the interview patient seemed postictal and opening her eyes but not really communicating. He has a history of a previous CVA with right-sided deficits and some aphasic language. According to the sister in the past her seizures have been absence to tonic-clonic so she has not experienced both. According to the sister she has not had any new medications or any other precipitating factors. She did have a pneumonia vaccine 1 week ago. Besides the Versed she got a dose of Keppra and Zofran. She will be placed on observation for further management and treatment of breakthrough seizure Review of Systems 2 Review of Systems: Denies any recent fever chills or decrease in appetite respiratory denies any shortness of breath or cough cardiovascular denied chest pain gastrointestinal denies any dysphagia abdominal pain nausea vomiting or diarrhea genitourinary denies any dysuria frequency or hematuria musculoskeletal denies any joint pain or swelling neuropsych denies any weakness or seizures all other systems reviewed are negative [facility] Medical History Microalbuminuria due to type 2 diabetes mellitus Mild aphasia CVA (cerebral vascular accident) Diabetes Seizures Elevated cholesterol Hypertension Ecchymosis Encounter to establish care Hx of cyst of breast Family History (Updated 04/10/25 @ 16:12 by Stephanie Phipps MD) Mother Bone cancer Hypertension Diabetes Father Diabetes Hypertension Maternal Aunt Breast cancer, Onset Age: 49 Family/Other Mental health disorder Surgical History Hx of colonoscopy History of partial hysterectomy History of thyroid surgery Social History (Updated 04/17/25 @ 15:55 by Shanita Mcnair NP) Household Members Other:: Lives with family Housing: Apartment Alcohol intake: never Patient Tobacco Use Status: Never used Tobacco e-Cigarette/Vaping Use: Never Used Second Hand Smoke Exposure: No service: No Current occupational status: unemployed Cognitive needs: Yes (cane ) Hearing needs: No Vision needs: Yes (glasses) Meds Allergies Allergy/AdvReac Type Severity Reaction Status Date / Time dulaglutide (From Trulicity) Allergy Intermediate pruritus, Verified 04/17/25 11:49 swelling latex (LATEX) Allergy Intermediate Hives Verified 04/17/25 11:49 erythromycin base Allergy Unknown UNKNOWN Verified 04/17/25 11:49 (ERYTHROMYCIN BASE) Penicillins (PENICILLINS) Allergy Unknown UNKNOWN Verified 04/17/25 11:49 metformin AdvReac Intermediate abdominal Uncoded 04/10/25 16:04 discomfort Home Medications ?Medication ?Instructions ?Recorded ?Confirmed ?Last Taken ?Type multivitamin (One-A-Day Essential 1 tab PO DAILY 11/2704/17/25 04/17/25 History tablet) aspirin 325 mg tablet,delayed 325 mg PO DAILY 04/17/25 04/17/25 04/17/25 History release polyethylene glycol 3350 17 17 g PO DAILY PRN Constipa tion 04/17/25 04/17/25 Unknown History gram/dose oral powder (Miralax) semaglutide 1 mg/dose (4 mg/3 mL) 1 mg subcut BOWERS 04/1704/17/25 04/16/25 History subcutaneous pen injector (Ozempic) Physical Exam 2 Vital Signs and Narrative: Vital Signs: Last Vital Signs Temp 98.5 F 04/17/25 10:50 Pulse 83 04/17/25 12:35 Resp 12 04/17/25 12:35 BP 141/78 H 04/17/25 12:35 Pulse Ox 98 04/17/25 12:35 O2 Del Method Room Air 04/17/25 12:35 BMI result Body Mass Index 27.2 Appearing in no acute distress head is normocephalic atraumatic eyes pupils are PERRLA sclera is anicteric mouth throat mucous membranes are intact and moist neck is supple no lymphadenopathy, no JVD noted lung sounds are clear to auscultation heart regular rate rhythm, clear S1, S2 positive bowel sounds, abdomen is soft, nontender neuro patient is alert, right-sided deficit from previous stroke with some mild aphasic language Results Labs 04/17/25 12:01 04/17/25 12:01 Labs: Laboratory Results - last 24 hr 04/17/25 04/17/25 04/17/25 10:49 10:51 12:00 MCV MCH MCHC RDW Plt Count MPV Immature Gran % (Auto) Neut % (Auto) Lymph % (Auto) [place] % (Auto) Eos % (Auto) Baso % (Auto) Lymph # (Auto) [place] # (Auto) Eos # (Auto) Baso # (Auto) Abs Immat Gran (auto) Absolute Neuts (auto) Absolute Nucleated RBC Nucleated RBC % (auto) PT Whole Blood PT 12.1 INR Whole Blood INR 1.0 VBG pH VBG pCO2 VBG pO2 VBG HCO3 VBG O2 Saturation VBG Base Excess Anion Gap Estim Creat Clear Calc Estimated GFR POC Glucose 127 H Random Glucose Estimat Average Glucose Hemoglobin A1c % Calcium Magnesium Total Bilirubin Direct Bilirubin AST ALT Alkaline Phosphatase C-Reactive Protein Total Protein Albumin Triglycerides Cholesterol LDL Cholesterol, Calc HDL Cholesterol TSH Urine Color Urine Appearance Urine pH Ur Specific [place] Urine Protein Urine Glucose (UA) Urine Ketones Urine Blood Urine Nitrite Ur Leukocyte Esterase Urine RBC Urine WBC Ur Squamous Epith Cells Urine Bacteria Hyaline Casts Blood Type O Positive Antibody Screen NEGATIVE 04/17/25 04/17/25 04/17/25 12:01 12:10 13:13 MCV 87.1 MCH 28.9 MCHC 33.2 RDW 12.7 Plt Count 268 MPV 8.5 L Immature Gran % (Auto) 0.2 Neut % (Auto) 48.1 Lymph % (Auto) 41.0 H [place] % (Auto) 7.2 Eos % (Auto) 2.6 Baso % (Auto) 0.9 Lymph # (Auto) 2.7 [place] # (Auto) 0.5 Eos # (Auto) 0.2 Baso # (Auto) 0.1 Abs Immat Gran (auto) 0.01 Absolute Neuts (auto) 3.1 Absolute Nucleated RBC 0.000 Nucleated RBC % (auto) 0.0 PT 12.7 H Whole Blood PT INR 1.1 Whole Blood INR VBG pH 7.52 H VBG pCO2 23 VBG pO2 129 VBG HCO3 19 L VBG O2 Saturation 99.0 VBG Base Excess -1.5 Anion Gap 11 L Estim Creat Clear Calc 67.2 Estimated GFR 57 POC Glucose Random Glucose 106 Estimat Average Glucose 134 Hemoglobin A1c % 6.3 H Calcium 9.5 Magnesium 2.2 Total Bilirubin 0.4 Direct Bilirubin 0.2 AST 19 ALT 21 Alkaline Phosphatase 126 H C-Reactive Protein 0.53 H Total Protein 6.9 Albumin 4.2 Triglycerides 53 Cholesterol 118 LDL Cholesterol, Calc 80 HDL Cholesterol 28 L TSH 1.11 Urine Color Yellow Urine Appearance Clear Urine pH >= 9.0 Ur Specific [place] >= 1.030 H Urine Protein Trace Urine Glucose (UA) Negative Urine Ketones Negative Urine Blood Small (1+) H Urine Nitrite Negative Ur Leukocyte Esterase Small (1+) H Urine RBC 11-20 H Urine WBC 11-20 H Ur Squamous Epith Cells 0-2 Urine Bacteria None Seen Hyaline Casts 0-2 Blood Type Antibody Screen Imaging Radiologist's Impressions: Impressions Head CT 04/17/25 10:54 IMPRESSION: No acute intracranial hemorrhage. Prior vascular insult, left MCA territory. Prior vascular insult, right superior cerebellar artery territory. 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 Electronically signed by: Jose A Navarro MD 04/17/2025 11:14 AM EDT RP Head/Neck CTA 04/17/25 11:16 IMPRESSION: No main cerebral artery occlusion or embolus. No high degree stenosis or dissection, extracranial arteries. Questionable 2.2 aneurysm, left A2 segment. Heterogeneous nodular enlarged left thyroid lobe and isthmus Questionable of fibrous dysplasia versus dentigerous cystic lesion, right first maxillary molar.. This critical test result is communicated to: Emergency physician Dr. Dalila Rinaldi via [employer] connect at 11:50 AM on April 17, 2025. Electronically signed by: Jose A Navarro MD 04/17/2025 12:04 PM EDT RP Chest X-Ray 04/17/25 11:42 IMPRESSION: No acute disease Electronically signed by: Sameer Martin MD 04/17/2025 11:54 AM EDT RP Assessment and Plan (1) Breakthrough seizure: Status: Acute Plan 55 year old women admitted with breakthrough seizure. Patient's history denied any new medications or precipitating symptoms. She did have the pneumonia vaccine 1 week ago. Breakthrough seizure so far no obvious signs, although UA questionable, urine culture from 04/01 showed mixed philip Head and neck CTA showed no cerebral artery occlusion or embolus or high-degree stenosis or dissection. Question 2.2 mm aneurysm to left A2 segment continue keppra and lamotrigine Seizure precautions Neurology consultation Diabetes mellitus 2 Hemoglobin A1c 6.3 sliding scale ADA diet Hypertension stable blood pressure continue home medications Hyperlipidemia Continue statin DVT prophylaxis with Lovenox Full code Quality Stroke Does the patient have a stroke diagnosis?: No VTE Prior VTE?: No VTE Risk Level:: Medical - moderate - high VTE Device Contraindication: Treatment Not Indicated VTE Drug Contraindication: N/A - Med Ordered
--- NOTE | 2025-04-17 14:18 | PC.NURSE ---
Sx improving as pt periodically eyes open and will nod head yes or no but not fully coherent and oriented. Sisters remain at bedside. Pt asleep mostly, stable vitals signs. Neuros intact. NSR on tele.
--- NOTE | 2025-04-17 14:21 | PHA.MEDREC ---
Addendum entered by Corry Quevedo [facility] 04/17/25 14:32: REVIEWED BY PHARMACIST Original Note: Pharmacy Consult ? Medication Reconciliation Pharmacy has completed the medication reconciliation. Spoke with pt sister (Gabriella) at bedside and she was able to confirm the pt medicaitons. Pt sister confirmed the Ozempic once a week on Sundays and confirmed she took it last Monday 04/16 and she confirmed the pt still takes Levetiracetam 1000mg tab 1 BID; despite claims showing
--- NOTE | 2025-04-17 15:07 | ECG_ITS ---
Test Reason : cp Blood Pressure : */* mmHG Vent. Rate : 73 BPM Atrial Rate : 73 BPM P-R Int : 170 ms QRS Dur : 64 ms QT Int : 370 ms P-R-T Axes : 50 7 25 degrees QTcB Int : 407 ms Sinus rhythm with marked sinus arrhythmia Otherwise normal ECG When compared with ECG of 17-Apr-2025 11:34, No significant change was found Referred By: Shanita Mcnair Electronically Signed By: WES PITTS
[2025-04-17] MEDS: 0.9 % Sodium Chloride Flush 3 ML SYRINGE IVFLUSH ×2 (16:32→20:26)
--- NOTE | 2025-04-17 17:16 | PC.NURSE ---
POC 53, pt remains awake and alert and improving since on arrival. Neuros intact, no seizure activity. Family remains by side. Given pudding and juice and kitchen called for dinner tray now.
[2025-04-17 17:34] LABS: Glucose, Whole Blood 51 mg/dL (60-115)
[2025-04-17] MEDS: Glucose Gel 15 GM GEL..GRAM. PO (17:37)
[2025-04-17 19:37] LABS: Glucose, Whole Blood 123 mg/dL (60-115)
--- NOTE | 2025-04-17 19:51 | PC.NURSE ---
Took over care at 19:00 from LADI Gould, report submitted by prior nurse, pt taken of bed ja[place], [facility]-care completed, pt being transported to [facility]
[2025-04-17 20:38] LABS: Glucose, Whole Blood 68 mg/dL (60-115)
[2025-04-17 23:01] LABS: Glucose, Whole Blood 115 mg/dL (60-115)
[2025-04-18] VITALS (8 sets, daily range): BP systolic 102–137; BP diastolic 61–89; PULSE 68–91; RESP 16–19; TEMP 36.1–36.9; O2SAT 96–99
[2025-04-18 06:29] LABS: Hematocrit 39.8 % (37.0-47.0); Hemoglobin 13.6 g/dl (12.0-16.0); Mean Corpuscular HGB Conc 34.2 g/dl (31.0-35.0); Mean Corpuscular Hemoglobin 28.6 pg (27.0-33.0); Mean Corpuscular Volume 83.8 fL (80.0-98.0); NRBC Abs Auto 0.000 X10*3/uL (0.0-0.012); NRBC Pct Auto 0.0 /100WBC (0.0-0.2); Platelet Count 312 X10*3/uL (160-400); Red Blood Count 4.75 X10*6/uL (4.20-5.50); White Blood Count 6.9 X10*3/uL (4.8-10.8)
[2025-04-18 06:40] LABS: Anion Gap 14 (12-20); Blood Urea Nitrogen 11 mg/dL (9-16); Calcium 9.6 mg/dL (8.4-10.2); Carbon Dioxide 27 mmol/L (22-29); Chloride 104 mmol/L (96-108); Creatinine Clr Calc Pharmacy 67.8; Estimated Glomerular Filt Rate 57; Potassium 4.2 mmol/L (3.3-5.1); Sodium 141 mmol/L (135-145)
[2025-04-18 07:10] LABS: Glucose, Whole Blood 99 mg/dL (60-115)
--- NOTE | 2025-04-18 09:57 | PM.NEUROCN ---
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 She also has a history of hypertension, hyperlipidemia, and DM. She presented to the emergency room yesterday after being found by family at approximately 05:00. She called family and noted that she had felt dizzy and had a headache. Her family member did not witness any event though there was a 5 minute cabin time where she was left alone. Her family member then found her stating that she was on the couch with altered mental status and diaphoretic. There was no notable trauma and no seizure activity seen when family found her. She was however acting ?postictal? similar to how she presented with her prior seizure events. She has been given a pneumonia vaccine and proximally 1 week ago at her primary care office which caused her to feel very ill worse than she did with COVID . She has been feeling better up until this event. Her last known seizure was approximately 1 year ago. Her family however does note that her levetiracetam has been reduced at the beginning of 2024 due to increased somnolence during the day. Her dose was dropped from 1000 mg twice daily to 500mg am and 1000 mg p.m.. She is also on lamotrigine 150 mg twice daily. They believe that she did take her levetiracetam 500 mg tablet that morning around 9am as she usually does on that morning. There was no levetiracetam level obtained in the emergency room. She did receive IV levetiracetam and IV Versed in the emergency room. Her primary care provider had performed an MRI of the brain recently on 04/12/2025 for reports of ongoing temporal headaches. These headaches has been going on for years and had not worsened leading up to her MRI. MRI of the brain 04/12/2025 showed no acute intracranial hemorrhage. No acute strokes/nonhemorrhagic ischemia. 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 CT/CTA imaging performed 04/17/2025 in the emergency room was nonacute though there is a questionable 2.2 aneurysm to the left A2 segment. UA obtained from 04/01 showing some mixed philip She is currently back to baseline mentation. No new focal neurological deficits. She has not had any further seizure activity. Review of Systems Review of Systems: Yes all other systems are reviewed and are negative [facility] Past Medical History Medical History Microalbuminuria due to type 2 diabetes mellitus Mild aphasia CVA (cerebral vascular accident) Diabetes Seizures Elevated cholesterol Hypertension Ecchymosis Encounter to establish care Hx of cyst of breast Family History Family History (Updated 04/10/25 @ 16:12 by Stephanie Phipps MD) Mother Bone cancer Hypertension Diabetes Father Diabetes Hypertension Maternal Aunt Breast cancer, Onset Age: 49 Family/Other Mental health disorder Surgical History Surgical History Hx of colonoscopy History of partial hysterectomy History of thyroid surgery Social History Social History Household Members: Children Household Members Other:: Lives with family Housing: House Do you presently have visiting nurse or other home services: No Alcohol intake: never Patient Tobacco Use Status: Never used Tobacco e-Cigarette/Vaping Use: Never Used Second Hand Smoke Exposure: No service: No Current occupational status: unemployed Cognitive needs: Yes (cane ) Hearing needs: No Vision needs: Yes (glasses) Meds Allergies Allergy/AdvReac Type Severity Reaction Status Date / Time dulaglutide (From [facility]) Allergy Intermediate pruritus, Verified 04/17/25 11:49 swelling latex (LATEX) Allergy Intermediate Hives Verified 04/17/25 11:49 erythromycin base Allergy Unknown UNKNOWN Verified 04/17/25 11:49 (ERYTHROMYCIN BASE) Penicillins (PENICILLINS) Allergy Unknown UNKNOWN Verified 04/17/25 11:49 metformin AdvReac Intermediate abdominal Uncoded 04/10/25 16:04 discomfort Active Medications: Current Medications Acetaminophen (Acetaminophen 325 Mg Tablet) 650 mg PO Q6H PRN PRN Reason: Pain, Mild 1-3,fever,headache Atorvastatin Calcium (Atorvastatin Calcium 80 Mg Tablet) 80 mg PO DAILY JEREMI Calcium Carbonate (Calcium Carbonate 750 Mg Tab.Chew) 750 mg PO Q4H PRN PRN Reason: Heartburn Dextrose (Dextrose 50 % 25 Gm/50 Ml Syringe) 25 gm IVPUSH Q15M PRN; Protocol PRN Reason: per Hypoglycemia Standing Ord. Enoxaparin Sodium (Enoxaparin Sodium 40 Mg/0.4 Ml Syringe) 40 mg SUBCUT Q24H [facility] Last Admin: 04/17/25 16:33 Dose: 40 mg Glucose (Glucose Gel 15 Gm Gel..Gram.) 15 gm PO Q15M PRN; Protocol PRN Reason: per Hypoglycemia Standing Ord. Last Admin: 04/17/25 17:37 Dose: 15 gm Insulin Human Lispro (Insulin Lispro 100 Unit/Ml 3 Ml Vial) 0 unit SUBCUT QIDACHS [facility]; Protocol Last Admin: 04/18/25 08:33 Dose: Not Given Lamotrigine (Lamotrigine 25 Mg Tablet) 150 mg PO BID [facility] Last Admin: 04/17/25 20:26 Dose: 150 mg Levetiracetam (Levetiracetam 1,000 Mg Tablet) 1,000 mg PO BID [facility] Last Admin: 04/17/25 20:25 Dose: 1,000 mg Lisinopril (Lisinopril 2.5 Mg Tablet) 2.5 mg PO DAILY [facility]; Protocol Magnesium Hydroxide (Milk Of Magnesia 30 Ml Oral.Susp) 30 ml PO DAILY PRN PRN Reason: Constipation Melatonin (Melatonin 3 Mg Tablet) 6 mg PO BEDTIME PRN PRN Reason: Insomnia Multivitamins/Vitamin C (Multivitamin Tablet) 1 tab PO DAILY [facility] Ondansetron HCl (Ondansetron Hcl 4 Mg/2 Ml Vial) 4 mg IVPUSH Q8H PRN PRN Reason: Nausea and Vomiting Polyethylene Glycol (Polyethylene Glycol 3350 17 Gm Powd.Pack) 17 gm PO DAILY PRN PRN Reason: Constipation Sodium Chloride (0.9 % Sodium Chloride Flush 3 Ml Syringe) 3 ml IVFLUSH QSHIFT [facility] Last Admin: 04/17/25 20:26 Dose: 3 ml Tizanidine HCl (Tizanidine Hcl 4 Mg Tablet) 2 mg PO Q8H PRN PRN Reason: muscle spasticity Home Medications ?Medication ?Instructions ?Recorded ?Confirmed ?Last Taken ?Type multivitamin (One-A-Day Essential 1 tab PO DAILY 11/27/21 04/17/25 04/17/25 History tablet) aspirin 325 mg tablet,delayed 325 mg PO DAILY 04/17/25 04/17/25 04/17/25 History release polyethylene glycol 3350 17 17 g PO DAILY PRN Constipation 04/17/25 04/17/25 Unknown History gram/dose oral powder (Miralax) semaglutide 1 mg/dose (4 mg/3 mL) 1 mg subcut BOWERS 04/17/25 04/17/25 04/16/25 History subcutaneous pen injector (Ozempic) Physical Exam Vital Signs: Vital Signs: Last Vital Signs Temp 98.1 F 04/18/25 07:24 Pulse 83 04/18/25 07:24 Resp 18 04/18/25 07:24 BP 118/83 04/18/25 07:24 Pulse Ox 98 04/18/25 07:24 O2 Del Method Room Air 04/18/25 07:24 BMI result Body Mass Index 28.3 Const: General: cooperative, comfortable and no acute distress Orientation/consciousness: oriented to person and oriented to place Eyes: Pupils: Equal, round and reactive pupils present EOM: No Nystagmus present Neuro: General: oriented to person, oriented to place and Unable to assess gait Cranial nerves: No Facial sensation intact/muscles of mastication intact (Mild right facial droop), Yes Equal, round and reactive pupils present, Yes Bilaterally intact EOM present and No Nystagmus present Cognition (Neuro): abnormal cognition Speech: Expressive aphasia present (Mild intermittent expressive aphasia) Gait exam (Neuro): Unable to assess gait Motor exam (neuro): Abnormal motor strength present (RUE 0/5 and RLE 3/5) and no tremors Results Labs 04/18/25 05:47 04/18/25 05:47 Labs: Short CBC 04/17/25 04/18/25 Range/Units 12:01 05:47 WBC 6.5 6.9 (4.8-10.8) X10*3/uL Hgb 12.3 13.6 (12.0-16.0) g/dl Hct 37.0 39.8 (37.0-47.0) % Plt Count 268 312 (160-400) X10*3/uL BMP 04/17/25 04/18/25 12:01 05:47 Sodium 141 141 Potassium 4.1 4.2 Chloride 108 104 Carbon Dioxide 26 27 BUN 12 11 Creatinine 1.01 1.02 Calcium 9.5 9.6 Liver Function 04/17/25 Range/Units 12:01 Total Bilirubin 0.4 (0.0-1.0) mg/dL Direct Bilirubin 0.2 (0.0-0.5) mg/dL AST 19 (5-31) U/L ALT 21 (0-31) U/L Alkaline Phosphatase 126 H (39-117) U/L Albumin 4.2 (3.5-5.0) g/dL Urine 04/17/25 Range/Units 13:13 Urine Color Yellow Urine Appearance Clear Urine pH >= 9.0 (5.0-9.0) Ur Specific [place] >= 1.030 H (1.005-1.025) Urine Protein Trace (Neg-Trace) mg/dL Urine Glucose (UA) Negative (Negative) mg/dL Microbiology Microbiology Results: Microbiology 04/17/25 Unknown Urine clean catch - Clean Catch Midstream Urine Culture - Final Assessment and Plan (1) History of stroke: Status: Acute (2) Breakthrough seizure: Status: Acute (3) Seizures: Status: Acute Plan Virginie is a 55-year-old female patient with a past medical history of 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 She also has a history of hypertension, hyperlipidemia, and DM. History and presentation consistent with likely breakthrough seizure event. Last known seizure was approximately 1 year ago and she has been taking her antiepileptic medication consistently. She did however have a reduction in her levetiracetam dosing earlier this year. She tells me that she takes 500 mg of levetiracetam in the morning and 1000 mg at bedtime. There were no changes to her lamotrigine dosing at 150 mg twice daily which she has been taking for years. Her levetiracetam dosing has been decreased due to some ongoing somnolence. It is possible that the event was provoked due to recent immunization as patient does report that she felt extremely ill with fevers after the immunization. Recent MRI of the brain was stable/reassuring. It may be reasonable to increase her levetiracetam dosing to 750 mg in the morning and 1000 mg in the evening until she follows up with her neurologist. No need for further workup at this time unless her condition changes. She is currently at baseline. Procedures Date of Service Date of Service: 04/18/25
[2025-04-18 11:12] LABS: Glucose, Whole Blood 164 mg/dL (60-115)
[2025-04-18] MEDS: 0.9 % Sodium Chloride Flush 3 ML SYRINGE IVFLUSH ×3 (12:42→21:52)
--- NOTE | 2025-04-18 15:07 | MHC.CM.PN ---
DEISY GIVEN 04/18. THIS CM MET WITH PT, PT CALLED HER SISTER/HCP TORIN FOR THIS CM TO COMPLETE CM INTAKE WITH. 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 HCP ON FILE AND VERIFIED. DCP: RETURN HOME/RESUME PREVIOUS SCHOOL RESOURCE OFFICER SERVICES, AND ADULT DAY PROGRAM [employer], PTS SISTER TO TRANSPORT HER HOME AT [place]. PCP: DR. KACIE MCGILL
--- NOTE | 2025-04-18 15:46 | HO.PM.IMPN ---
Subjective Subjective Date of Service: 04/18/25 Interval History: Very pleasant female, lying in bed comfortably. Sister by bedside. Patient describes feeling lightheaded, prior to loss of consciousness without subsequent tonic-clonic like seizure activity Review of Systems Review of Systems: Yes all other systems are reviewed and are negative Physical Exam Exam: Exam: General: A&O x3, oriented to time place person and situation, comfortable, no pain Cardiac: S1, S2 auscultated with no S3/4, no MRG. Well perfused. Respiratory: Normal breath sounds auscultated throughout all lung zones, without wheezing, rales. Normal rate. GI/ : No abdominal pain on palpation, no masses or distentions. MSK: Normal ambulation without pain at bony prominences or musculature Neurological: Chronic right-sided facial droop, with right upper and lower extremity hemiparesis and hemiplegia. At baseline. No other neurologic features on examination Vital Signs: Vital Signs: Last Vital Signs Temp 97.4 F 04/18/25 15:05 Pulse 83 04/18/25 15:05 Resp 18 04/18/25 15:05 BP 102/62 04/18/25 15:05 Pulse Ox 98 04/18/25 15:05 O2 Del Method Room Air 04/18/25 15:05 BMI result Body Mass Index 28.3 Objective Data Active Medications Acetaminophen (Acetaminophen 325 Mg Tablet) 650 mg PO Q6H PRN PRN Reason: Pain, Mild 1-3,fever,headache Atorvastatin Calcium (Atorvastatin Calcium 80 Mg Tablet) 80 mg PO DAILY [facility] Last Admin: 04/18/25 10:28 Dose: 80 mg Documented By: ABBY Calcium Carbonate (Calcium Carbonate 750 Mg Tab.Chew) 750 mg PO Q4H PRN PRN Reason: Heartburn Dextrose (Dextrose 50 % 25 Gm/50 Ml Syringe) 25 gm IVPUSH Q15M PRN; Protocol PRN Reason: per Hypoglycemia Standing Ord. Enoxaparin Sodium (Enoxaparin Sodium 40 Mg/0.4 Ml Syringe) 40 mg SUBCUT Q24H [facility] Last Admin: 04/17/25 16:33 Dose: 40 mg Documented By: CATRACHO Glucose (Glucose Gel 15 Gm Gel..Gram.) 15 gm PO Q15M PRN; Protocol PRN Reason: per Hypoglycemia Standing Ord. Last Admin: 04/17/25 17:37 Dose: 15 gm Documented By: CATRACHO Comments: BGL 51 Insulin Human Lispro (Insulin Lispro 100 Unit/Ml 3 Ml Vial) 0 unit SUBCUT QIDACHS [facility]; Protocol Last Admin: 04/18/25 12:36 Dose: 1 unit Documented By: ABBY Lamotrigine (Lamotrigine 25 Mg Tablet) 150 mg PO BID [facility] Last Admin: 04/18/25 10:27 Dose: 150 mg Documented By: ABBY Levetiracetam (Levetiracetam 1,000 Mg Tablet) 1,000 mg PO BID [facility] Last Admin: 04/18/25 10:28 Dose: 1,000 mg Documented By: ABBY Lisinopril (Lisinopril 2.5 Mg Tablet) 2.5 mg PO DAILY [facility]; Protocol Last Admin: 04/18/25 10:28 Dose: 2.5 mg Documented By: ABBY Magnesium Hydroxide (Milk Of Magnesia 30 Ml Oral.Susp) 30 ml PO DAILY PRN PRN Reason: Constipation Melatonin (Melatonin 3 Mg Tablet) 6 mg PO BEDTIME PRN PRN Reason: Insomnia Multivitamins/Vitamin C (Multivitamin Tablet) 1 tab PO DAILY [facility] Last Admin: 04/18/25 10:29 Dose: 1 tab Documented By: BABY Ondansetron HCl (Ondansetron Hcl 4 Mg/2 Ml Vial) 4 mg IVPUSH Q8H PRN PRN Reason: Nausea and Vomiting Polyethylene Glycol (Polyethylene Glycol 3350 17 Gm Powd.Pack) 17 gm PO DAILY PRN PRN Reason: Constipation Last Admin: 04/18/25 12:38 Dose: 17 gm Documented By: ABBY Sodium Chloride (0.9 % Sodium Chloride Flush 3 Ml Syringe) [facility] Last Admin: 04/18/25 12:42 Dose: 3 ml Documented By: ABBY Tizanidine HCl (Tizanidine Hcl 4 Mg Tablet) 2 mg PO Q8H PRN PRN Reason: muscle spasticity Labs 04/18/25 05:47 04/18/25 05:47 Labs: Laboratory Results - last 24 hr 04/17/25 04/17/25 04/17/25 17:09 18:16 20:33 MCV MCH MCHC RDW Plt Count MPV Absolute Nucleated RBC Nucleated RBC % (auto) Anion Gap Estim Creat Clear Calc Estimated GFR POC Glucose 51 L* 123 H 68 Random Glucose Calcium 04/17/25 04/18/25 04/18/25 22:57 05:47 07:07 MCV 83.8 MCH 28.6 MCHC 34.2 RDW 12.6 Plt Count 312 MPV 8.7 L Absolute Nucleated RBC 0.000 Nucleated RBC % (auto) 0.0 Anion Gap 14 Estim Creat Clear Calc 67.8 Estimated GFR 57 POC Glucose 115 99 Random Glucose 98 Calcium 9.6 04/18/25 11:09 MCV MCH MCHC RDW Plt Count MPV Absolute Nucleated RBC Nucleated RBC % (auto) Anion Gap Estim Creat Clear Calc Estimated GFR POC Glucose 164 H Random Glucose Calcium Microbiology Microbiology Results: Microbiology 04/17/25 Unknown Urine Culture - Final Urine clean catch - Clean Catch Midstream Assessment and Plan (1) Hypertension: Status: Acute (2) Hyperlipidemia: Status: Acute (3) Diabetes mellitus: Status: Acute (4) Dysphagia: Status: Acute (5) CVA (cerebral vascular accident): Status: Acute (6) Hemiparesis: Status: Acute (7) Seizures: Status: Acute (8) Mild aphasia: Status: Acute (9) Shortness of breath: Status: Acute (10) Syncope: Status: Acute Plan 55 year old women, with a history of CVA 2014 with residual right claudette deficit, HTN, HLD, T2 DM, MDD, seizure disorder stable presents with loss of consciousness, admitted for evaluation. Loss of consciousness Evaluation for etiology ongoing. Differential includes breakthrough seizure (however description of LOC event is inconsistent with prior seizures), versus syncopal event. No evidence of shock physiology, infection. Cardiovascular examination unremarkable, however could be suffering with dysrhythmia. Other possibility includes orthostatic hypotension, vasovagal episode or autonomic dysfunction. Head and neck CTA showed no cerebral artery occlusion or embolus or high-degree stenosis or dissection. Question 2.2 mm aneurysm to left A2 segment PLAN - continue Keppra and lamotrigine - seizure precautions - neurology following - cardiac telemetry - echocardiography - orthostatics Diabetes mellitus 2 Hemoglobin A1c 6.3 sliding scale ADA diet Hypertension stable blood pressure continue home medications Hyperlipidemia Continue statin [employer] - VTE: Enoxaparin - CODE STATUS: Full code - DIET: Regular - DISPOSITION: 1-2 DAYS Total time managing care of this patient today: 45 minutes. Quality Stroke Does the patient have a stroke diagnosis?: No VTE Prior VTE?: No VTE Risk Level:: Medical - moderate - high VTE Device Contraindication: Treatment Not Indicated VTE Drug Contraindication: N/A - Med Ordered
[2025-04-18 16:11] LABS: Glucose, Whole Blood 118 mg/dL (60-115)
[2025-04-18 21:12] LABS: Glucose, Whole Blood 118 mg/dL (60-115)
[2025-04-19] VITALS: BP 133/82; PULSE 86; RESP 18; TEMP 36.6; O2SAT 93
[2025-04-19 03:25] VITALS: BP 120/80; PULSE 80; RESP 18; TEMP 36.6; O2SAT 97
--- NOTE | 2025-04-19 07:00 | CA_ITS ---
Transthoracic Echocardiogram Patient (Last, First, Middle): Virginie Canada, Gender: F Date of : 1970 Age: 55 Procedure Date: 04/19/2025 Procedure Type: Transthoracic Echocardiogram Location: [facility] [place] Height: 167.64 cm Weight: 79.38 kg BSA: 1.89 m2 Heart Rate: bpm BP: 125 / 77 mmHg Heater Operator: Referring MD: Zay Muniz MD Symptoms: syncope Study Quality: Adequate ECG Rhythm: Sinus Conclusions: - The left ventricular systolic function is normal. The calculated ejection fraction is 62% by biplane method. - No obvious valvular pathology seen on this study. Findings Left Ventricle Normal left ventricular cavity size. There is normal left ventricular wall thickness. The left ventricular systolic function is normal. The calculated ejection fraction is 62% by biplane method. There is no evidence of regional wall motion abnormalities. Diastolic function is normal for age. Right Ventricle Normal right ventricular cavity size and systolic function. Atria Both atria are normal in size. Aortic Valve There is a normal trileaflet aortic valve. There is no aortic valve stenosis. There is no aortic valve regurgitation. Mitral Valve The mitral valve appears normal. There is no mitral valve regurgitation. There is no mitral valve stenosis. Pulmonic Valve The pulmonic valve is likely normal. Tricuspid Valve There is trace tricuspid valve regurgitation. There is no evidence of pulmonary hypertension. Great Vessels The asc aorta is normal in size. Venous The inferior vena cava is normal in size and collapses greater than 50% with inspiration. Pericardium/Pleural There is no evidence of pericardial effusion. Prior Study Comparison No significant change compared to prior study dated: 02/11/2024. Recommendations, Care & Conclusions No obvious valvular pathology seen on this study. Measurements 2D Linear Measurements IVSd: 0.96 0.6-0.9/0.6-1.0 cm LVIDd: 4.10 3.9-5.3/4.2-5.9 cm LVIDd Index: 2.17 2.4-3.2/2.2-3.1 cm/m2 LVIDs: 2.63 2.0-3.6 cm LVPWd: 0.96 0.7-1.1 cm Ao Root: 2.70 2.1-3.5 cm LA Diam: 2.70 2.7-3.8/3.0-4.0 cm LAIDs Index: 1.43 1.5-2.3 cm/m2 LV Mass: 155.10 67-162/88-224 g LV Mass Index: 82.07 43-95/49-115 g/m2 LVOT Diam: 2.10 3.0+(-)1.3 cm 2D Systolic Function EF 4C: 59.50 >55% EF 2C: 60.20 >55% EF BiP: 62.30 >55% Mitral Valve MV Pk E: 0.78 MV PK A: 0.74 MV Decel Time: 245.00 E/A: 1.10 E'Lateral: 10.10 E'Medial: 7.40 E/E' Med: 10.60 E/E' Lat: 7.80 PHT: 72.00 MVA PHT: 3.06 Decel [place]: 3.20 Aortic Valve AoV Pk Perico: 1.42 AoV Mn Perico: 0.98 AoV VTI: 0.27 AoV Pk Grad: 8.00 Aov Mn Grad: 5.00 ROCCO Cont.VTI: 2.42 LVOT LVOT Pk Perico: 0.95 LVOT Mn Perico: 0.62 LVOT VTI: 0.19 LVOT Pk Grad: 4.00 LVOT Mn Grad: 2.00 LVOT Diam: 2.10 LVOT Area: 3.46 Diastolic Function MV Pk E: 0.78 MV Pk A: 0.74 E/A: 1.10 E'Medial: 7.40 E/E' Med: 10.60 E' Laterial: 10.10 E/E' Lat: 7.80 Right Ventricle TAPSE (mm): 30.40 TVS' Perico: 10.60 Tricuspid Valve TR Pk Perico: 2.10 TR Pk Grad: 18.00 Great Vessels Aorta Ao Root-2D: 2.70 2.0-3.7 cm Ao Asc: 2.80 2.1-3.4 cm Pulmonary Valve PV Pk Perico: 1.03 Peak PV Grad: 4.00 Updated in Other Vendor System with Status of Final Hammad Ramsey MD electronically signed on 04/19/2025 1:18:33 PM with status of Final
[2025-04-19 07:08] LABS: Glucose, Whole Blood 119 mg/dL (60-115)
[2025-04-19 07:17] VITALS: BP 103/57; PULSE 75; RESP 14; TEMP 37.3; O2SAT 96
[2025-04-19 08:42] VITALS: BP 103/57
[2025-04-19] MEDS: 0.9 % Sodium Chloride Flush 3 ML SYRINGE IVFLUSH (08:42)
[2025-04-19 11:18] LABS: Glucose, Whole Blood 77 mg/dL (60-115)
[2025-04-19 11:50] VITALS: BP 106/65; PULSE 78; RESP 14; TEMP 36.5; O2SAT 96
--- NOTE | 2025-04-19 13:41 | P.DS_ITS ---
DS: Providers Provider Date of Service: 04/19/25 Date of admission: 04/17/25 14:26 Date of discharge: 04/19/25 Primary care physician: Stephanie Phipps MD Consults: 04/17/25 14:38 Consult to Neurology Routine Consulting Provider: [facility] Reason for consultation: breakthrough seizure DS: Diagnosis Discharge Diagnosis (1) Hypertension: Status: Acute (2) Hyperlipidemia: Status: Acute (3) Diabetes mellitus: Status: Acute (4) Dysphagia: Status: Acute (5) CVA (cerebral vascular accident): Status: Acute (6) Hemiparesis: Status: Acute (7) Seizures: Status: Acute (8) Mild aphasia: Status: Acute (9) Shortness of breath: Status: Acute (10) Syncope: Status: Acute DS: Summary Hospital Course Hospital Course: 55 year old women, with a 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 Loss of consciousness Etiology likely 2/2 multifactorial cause-including vasovagal, orthostatic hypotension in the setting of recent pneumonia vaccine. Differential included breakthrough seizure (however description of LOC event is inconsistent with prior seizures), versus syncopal event. No evidence of shock physiology, infection. Cardiovascular examination unremarkable, however could be suffering with dysrhythmia. Head and neck CTA showed no cerebral artery occlusion or embolus or high-degree stenosis or dissection. Question 2.2 mm aneurysm to left A2 segment. MRI brain reassuring Echocardiography negative for valvulopathy, LVEF within normal limits, no RV failure. ECG and telemetry unremarkable. Lab work unremarkable for concerning etiology. Given the possibility for breakthrough seizure, Neurology had recommended the patient change her Keppra dosing from 500 mg a.m./1000 mg p.m. to 750 mg a.m./1000 mg p.m.. They recommended close follow up with the patient in the outpatient setting. Status at Discharge Overall status at discharge: patient is back to baseline Time Attestation Total time managing care of this patient today: 35 mintues. Discharge Coordination Time (in mins): 15 Quality: Safe Use of Opioids Does Pt have an Active Cancer Diagnosis on the Problem List?: No Quality: Stroke Does the patient have a stroke diagnosis?: Yes Reason for No Anti-thrombotic at DC: N/A - Med Ordered Reason for No Anticoagulant at DC: Not indicated Reason Not Initiating IV-Tpa: Not indicated Reason for No Anti-thrombotic by Day Two: Not indicated Reason for No Statin at DC: N/A - Med Ordered Physical Exam Exam: Exam: General: A&O x3, oriented to time place person and situation, comfortable, no pain Cardiac: S1, S2 auscultated with no S3/4, no MRG. Well perfused. Respiratory: Normal breath sounds auscultated throughout all lung zones, without wheezing, rales. Normal rate. GI/ : No abdominal pain on palpation, no masses or distentions. MSK: Normal ambulation without pain at bony prominences or musculature Neurological: Chronic right-sided facial droop, with right upper and lower extremity hemiparesis and hemiplegia. At baseline. No other neurologic features on examination Vital Signs: Vital Signs: Last Vital Signs Temp 97.7 F 04/19/25 11:50 Pulse 78 04/19/25 11:50 Resp 14 04/19/25 11:50 BP 106/65 04/19/25 11:50 Pulse Ox 96 04/19/25 11:50 O2 Del Method Room Air 04/19/25 11:50 BMI result Body Mass Index 28.3 DS: Data Data Completed and Pending Labs on day of discharge: Laboratory Results - last 24 hr 04/18/25 04/18/25 04/19/25 16:08 21:06 07:02 POC Glucose 118 H 118 H 119 H 04/19/25 11:10 POC Glucose 77 Discharge Plan Discharge Anticipated Discharge Date/Time: 04/19/25 13:44 Patient Disposition: Home, Self-Care Discharge Diagnosis: Syncopal event in the setting of orthostatic hypotension/vasovagal episode Referrals: Stephanie García MD [Primary Care Provider, Internal Medicine] - 1 Week Discharge Medications: New gabapentin 100 mg Capsule 100 mg PO TID 30 Days Qty: 90 0RF levetiracetam [Keppra] 750 mg tablet 750 mg PO DAILY 30 Days Qty: 30 0RF Continued lamotrigine 150 mg tablet 150 mg PO BID 90 Days Qty: 180 1RF (DME) FreeStyle Lite Strips Strip See Rx Instructions .Route Qty: 100 3RF Rx Instructions: As directed checks 1 X/day lisinopril 2.5 mg tablet 2.5 mg PO DAILY 90 Days Qty: 90 1RF aspirin 325 mg Tablet,Delayed Release (Dr/Ec) 325 mg PO DAILY polyethylene glycol 3350 [Miralax] 17 gram/dose powder 17 g PO DAILY PRN (Reason: Constipation) Ozempic 1 mg/dose (4 mg/3 mL) pen injector 1 mg subcut BOWERS (DME) FreeStyle Jolene 2 [place]anger Misc See Rx Instructions .MEDSUPPLY Qty: 1 0RF Rx Instructions: As directed (DME) FreeStyle Jolene 2 Sensor Kit See Rx Instructions .MEDSUPPLY Qty: 1 3RF Rx Instructions: As directed multivitamin [One-A-Day Essential] Tablet 1 tab PO DAILY (DME) blood-glucose meter [Accu-Chek Cindy Plus Meter] Misc See Rx Instructions .Route Qty: 1 0RF Rx Instructions: As directed (DME) blood-glucose meter [FreeStyle Lite Meter] Kit See Rx Instructions .Route Qty: 1 0RF Rx Instructions: As directed checks 1 X/day (DME) lancets [FreeStyle Lancets] 28 gauge misc See Rx Instructions .Route Qty: 100 4RF Rx Instructions: As directed checks 1 X/day rosuvastatin 40 mg tablet 40 mg PO DAILY 90 Days Qty: 90 1RF tizanidine 2 mg capsule 2 mg PO Q8H PRN (Reason: muscle spasticity) Qty: 14 0RF Changed levetiracetam 1,000 mg tablet 1,000 mg PO BEDTIME Qty: 180 0RF Discharge Orders: Discharge Order (Routine); Ordered 04/19/25 Ordered By: Zay Muniz Diet: Advance to usual diet Activity on Discharge: As tolerated Stand Alone Forms: Patient Portal Discharge page Print Language: Swedish Care Plan Goals: As above Health Concerns: As above Plan of Treatment: Follow up with PCP in 1 week post discharge Evaluate further for need for ongoing services/ increased services Follow up Neurology outpatient Assessment: Hemodynamically stable, with no critical events on ECG or equipment monitor phototypesetting. Echocardiography unremarkable, with no evidence of breakthrough seizures during admission.
--- NOTE | 2025-04-19 14:12 | MHC.CM.PN ---
PT IS MEDICALLY CLEARED FOR DISCHARGE HOME SELF-CARE WITH RESUMPTION OF PREVIOUS [facility] AND M-F ADULT DAY PROGRAM. PTS SISTER WILL TRANSPORT HER HOME TODAY.
[2025-04-19 15:37] VITALS: BP 97/67; PULSE 86; RESP 16; TEMP 36.7; O2SAT 94
[2025-04-19 16:16] LABS: Glucose, Whole Blood 116 mg/dL (60-115)
== END 2025-04-19 17:42 | disposition home or self-care (01) ==
LOC: HO.ED 13:29 → HO.EDOVER 14:35 → HO.IMC 19:07
PROVIDERS: Admitting Provider Nurse Practitioner Acute Care; Emergency Provider Emergency Medicine; PCP Internal Medicine; Visit Provider Hospitalist
DX: G40.919 Epilepsy, unspecified, intractable, without status epilepticus (principal); R41.82 Altered mental status, unspecified; E78.5 Hyperlipidemia, unspecified; R55 Syncope and collapse; R42 Dizziness and giddiness; I69.920 Aphasia following unspecified cerebrovascular disease; R07.9 Chest pain, unspecified; E11.9 Type 2 diabetes mellitus without complications; R06.02 Shortness of breath; R13.10 Dysphagia, unspecified; Z79.899 Other long term (current) drug therapy
CPT/HCPCS: 36415; 70450; 70496; 70498; 71045; 80048; 80061; 80076; 81001; 82803; 82947; 83036; 83735; 84443; 85025; 85027; 85610; 86140; 86850; 86900; 86901; 87086; 93005; 93306; 96365; 96372; 96375; 99222; 99285; J1650; J1953; J2250; J2270; Q9957

== ENCOUNTER → 2025-04-17 10:48 | Outpatient (BNV) | payer MEDICARE, MEDICAID, SELFPAY | PROVIDERS: Admitting Provider Nurse Practitioner Acute Care; Emergency Provider Emergency Medicine; PCP Internal Medicine; Visit Provider Internal Medicine | DX: R42 Dizziness and giddiness (principal); R51.9 Headache, unspecified | CPT/HCPCS: 93010 ==

== ENCOUNTER → 2025-04-17 10:48 | Outpatient (BNV) | payer MEDICARE, MEDICAID, SELFPAY | PROVIDERS: Emergency Provider Emergency Medicine; Visit Provider Radiology Diagnostic Radiology | DX: E04.1 Nontoxic single thyroid nodule (principal); R42 Dizziness and giddiness | CPT/HCPCS: 70450; 70496; 70498 ==

== ENCOUNTER 2025-04-17 14:26 | Outpatient (BNV) | payer MEDICARE, MEDICAID, SELFPAY | END 2025-04-19 07:00 | PROVIDERS: Admitting Provider Nurse Practitioner Acute Care; Emergency Provider Emergency Medicine; PCP Internal Medicine; Visit Provider Internal Medicine | DX: R55 Syncope and collapse (principal) | CPT/HCPCS: 93306 ==

== ENCOUNTER → 2025-04-17 14:26 | Outpatient (BNV) | payer MEDICARE, MEDICAID, SELFPAY | PROVIDERS: Admitting Provider Nurse Practitioner Acute Care; Emergency Provider Emergency Medicine; PCP Internal Medicine; Visit Provider Nurse Practitioner Acute Care | DX: G40.919 Epilepsy, unspecified, intractable, without status epilepticus (principal) | CPT/HCPCS: 99223 ==

== ENCOUNTER 2025-04-21 13:31 | Outpatient (AMB) | payer MEDICARE, MEDICAID, SELFPAY ==
--- NOTE | 2025-04-21 13:33 | A.OFFPC_ITS ---
Vital Signs 04/21/25 13:34 Height 5 ft 6 in Weight 167 lb 15.876 oz BMI 27.1 BP 118/76 Blood Pressure Location Lt brachial Position Sitting Pulse 91 Pulse Source Pulse Oximeter Temp 97.1 F Temp Source Temporal Artery Scan Pulse Oximetry (%) 95 Oxygen Delivery Method Room Air Intake Visit Reasons: TCM SEIZURE Accompanied by: sister,daughter Allergies dulaglutide (From Trulicity) Allergy (Intermediate, Verified 04/21/25 13:37) pruritus, swelling latex (LATEX) Allergy (Intermediate, Verified 04/21/25 13:37) Hives erythromycin base (ERYTHROMYCIN BASE) Allergy (Unknown, Verified 04/21/25 13:37) UNKNOWN Penicillins (PENICILLINS) Allergy (Unknown, Verified 04/21/25 13:37) UNKNOWN metformin Adverse Reaction (Intermediate, Uncoded 04/21/25 13:37) abdominal discomfort Tobacco use date assessed: 04/21/25 Dental Screening Dental Screen Date: 04/21/25 Did you have a dental visit in the last 12 months?: Yes Did you have a dental problem in the last 6 months where you did not have access to dental care?: No Was dental information given to patient?: Patient has dentist HPI TCM TCM Information Date of Discharge 04/19/25 Discharged From [facility] Contact Date (Reference documentation from this date) 04/20/25 HPI Comments History of Present Illness Details 55 y/o Female Patient who presents to [facility] today for TCM. PMhx significant for CVA 2014 with residual right hemideficit, HTN, HLD, T2 DM, MDD, and Seizure disorder stable. Pt was admitted at [facility] on 04/17 - 04/19 for an evaluation of loss of consciousness. Etiology likely multifactorial cause-including vasovagal, or orthostatic hypotension in the setting of recent pneumonia vaccine. Head and neck CTA showed no cerebral artery occlusion or embolus or high-degree stenosis or dissection. Echo, ECG and Lab work unremarkable for concerning etiology. Keppra dosing was changed from 500 mg a.m./1000 mg p.m. to 750 mg a.m./1000 mg p.m. Patient has a Neurologist at [facility]. Patient's Sister dropped FMLA paperwork to fill out for her Work absent. Sister has been taking care of the Patient since this Episode - Sister asking for Intermittent leave for 's Visits. [facility] Medical History Microalbuminuria due to type 2 diabetes mellitus Mild aphasia CVA (cerebral vascular accident) Diabetes Seizures Elevated cholesterol Hypertension Ecchymosis Encounter to establish care Hx of cyst of breast Surgical History Hx of colonoscopy History of partial hysterectomy History of thyroid surgery Family History Mother Bone cancer Hypertension Diabetes Father Diabetes Hypertension Maternal Aunt Breast cancer, Onset Age: 49 Family/Other Mental health disorder Social History Household Members: Children Household Members Other:: Lives with family Housing: House Do you presently have visiting nurse or other home services: No Alcohol intake: never Patient Tobacco Use Status: Never used Tobacco e-Cigarette/Vaping Use: Never Used Second Hand Smoke Exposure: No service: No Current occupational status: unemployed Cognitive needs: Yes (cane ) Hearing needs: No Vision needs: Yes (glasses) Female Reproductive History Menstrual Age of Menarche: 12 Questionnaire PHQ-9 Over the last 2 weeks, how often have you been bothered by any of the following problems? 1. Little interest or pleasure in doing things: nearly every day 2. Feeling down, depressed, or hopeless: more than half the days 3. Trouble falling or staying asleep, or sleeping too much: nearly every day 4. Feeling tired or having little energy: several days 5. Poor appetite or overeating: more than half the days 6. Feeling bad about yourself - or that you are a failure or have let yourself or your family down: several days 7. Trouble concentrating on things, such as reading the newspaper or watching television: nearly every day 8. Moving or speaking so slowly that other people could have noticed. Or the opposite - being so fidgety or restless that you have been moving around a lot more than usual: more than half the days 9. Thoughts that you would be better off or of hurting yourself in some way: not at all Total score: 17 Depression Screening Interpretation: Positive (No suicidal thoughts) Depression Screening Follow-up: Existing condition, In treatment and Follow-up Visit Requested Depression Screening Done: Yes Source: Developed by Drs. Lamont Beltrán, Bebeto Phillip and colleagues, with an educational lorena from [employer]. Thrive Questionnaire Date Thrive assessed: 03/06/25 I am a: Patient What is your living situation today?: I have a steady place to live Within the past 12 months, did the food you bought not last and you didn't have the money to get more?: Sometimes True Within the past 12 months, did you worry whether your food would run out before you got money to buy more?: Often true Do you have trouble paying for medicines?: No Do you have trouble getting transportation to medical appointments?: No Do you have trouble paying your heating and electricity bill?: Yes Do you have trouble taking care of your child, family member or friend?: No Do you have trouble with day-to-day activities such as bathing, preparing meals, shopping, managing finances, etc.?: No Are you currently unemployed and looking for a job?: I choose not to answer this question Are you interested in more education?: I choose not to answer this question Currently or been in a relationship where the following occur: I choose not to answer THRIVE Score: 3 AUDIT C Alcohol Use Questionnaire (AUDIT-C) 1. How often do you have a drink containing alcohol?: Never 3. How often do you have six or more drinks on one occasion?: Never Total Score: 0 RAMESH-7 AMB Questionnaire RAMESH-7 Date RAMESH - 7 assessed: 09/28/24 Feeling nervous, anxious, or on edge: 1 = Several days Not being able to stop or control worryin = Not at all Worrying too much about different things: 1 = Several days Trouble relaxin = Several days Being so restless that it is hard to sit still: 0 = Not at all Becoming easily annoyed or irritable: 2 = More than half the days Feeling afraid as if something awful might happen: 1 = Several days Total RAMESH-7 score (0-4 normal; 5-9 mild; 10-14 moderate; 15-21 severe): 6 Source: Developed by Pati Muhammad Kurt Kroenke and colleagues, with an educational lorena from [employer]. Review of Systems Const All systems reviewed & are unremarkable except as noted in HPI and below Physical exam (Primary Care) Vital Signs: Last Vital Signs Temp 97.1 F 04/21/25 13:34 Pulse 91 04/21/25 13:34 BP 118/76 04/21/25 13:34 Pulse Ox 95 04/21/25 13:34 Oxygen Delivery Method Room Air 04/21/25 13:34 BMI result Body Mass Index 27.1 Tobacco/Smoking Status: Tobacco use Status Tobacco use date assessed 04/21/25 04/21/25 13:39 Patient Tobacco Use Status Never used Tobacco 04/21/25 13:33 e-Cigarette/Vaping Use Never Used 04/21/25 13:33 PHQ-9: PHQ-9 Score PHQ-9: Total score 17 04/21/25 15:18 Depression Screening Interpretation: Positive (No suicidal thoughts) Depression Screening Follow-up: Existing condition, In treatment and Follow-up Visit Requested Thrive Assessment: Date of Thrive Assessment Date Thrive assessed 03/06/25 04/21/25 13:33 Currently or been in a relationship where the following occur: I choose not to answer Const General: no acute distress Nutritional Appearance: overweight Orientation/consciousness: patient oriented x3 Resp Effort & Inspection: normal respiratory effort Cardio Heart sounds: S1 normal heart sound present and S2 normal heart sound present Neuro General: patient oriented x3 Gait exam (Neuro): Assisted gait required (Cane) Coding Level of Care Code TCM Mod MDM <= 7 Days Diagnoses Syncope, unspecified syncope type R55 Syncope type: unspecified Time Spent (min) 20 Assessment & Plan Assessment & Plan (1) Syncope: Code(s): R55 - Syncope and collapse Category: Medical Qualifiers: Syncope type: unspecified Qualified Code(s): R55 - Syncope and collapse Plan Discharge Diagnosis: Syncopal event in the setting of orthostatic hypotension/vasovagal episode. Not clear if this was a seizure per ED notes. Pt to f/u with her neurologist. I signed the [place] Paperwork for Pt's Sister for Intermittent work leave for Dr's Appointments. Keppra dose was changed in the Hospital.
[2025-04-21 13:34] VITALS: BP 118/76; PULSE 91; TEMP 36.2; O2SAT 95; BMI 27.1
--- OUTSIDE RECORDS SUMMARY | 2025-04-21 13:48 | XMS_ITS | Encounter Summary ---
Author Organization [facility] Address [address] [facility] [address] [place] [address] Phone Care Team Providers Care People Manager Name Role Phone Claudio Mott MD Primary Care Provider [phone] Estephania Padilla NP Primary Care Provider [phone] Reason for Referral * MRI/CAT Scan - Closed Specialty Diagnoses / Procedures Referred By Shalom kessler Referred To Contact Radiology Diagnoses Blurred vision Nonintractable headache, unspecified chronicity pattern, unspecified headache type Procedures MRI Brain Claudio Mott MD Phone: tel: fax: [email or web address] Referral ID Status Reason Start Date Expiration Date Visits Re quested Visits Authorized [id number] Closed 04/09/2021 04/09/2022 1 1 Encounter Details Date Type Department Care Team (Latest Contact Info) Description 04/09/2021 Transcribe Orders Virtual Department [address] [place] [address] [id number] Claudio Mott MD [address] [place] [address], [address] [place], [place] [id number] [email or web address] Blurred vision (Primary Dx); Nonintractable headache, [...] right are similar to prior study. No [id number] blood or fluid collection, mass, or mass [...] and diffusion-weighted imaging with ADC map, coronal [id number] and STIR, sagittal T1 sequences were obtained. [...] the right are similar toprior study. No [id number] blood or fluid collection, mass, or masseffect [...] documented as of this encounter Care Teams People Manager Relationship Specialty Start Date End Date Claudio Mott MD [address] [place] [address], [address] [place] [address] [email or web address] PCP - General Neurology 04/16/21 06/30/22 Estephania Padilla NP [address] [address] PCP - General 07/01/22 documented as of this encounter Additional Source Comments The information contained in this document represents components of the legal health record. It is not the complete legal health record.[facility]
--- OUTSIDE RECORDS SUMMARY | 2025-04-21 13:48 | XMS_ITS | Clinical Summary ---
Author Organization [facility] it Address [address] [place] [address] Care Team Providers Care Audio/Visual Operator Name Role Phone Mick Vidal MD Primary Care Provider [phone] Surgical History Surgery Date Site/Laterality Comments OTHER [...] 2016 OTHER SURGICAL HISTORY 12/2016 N/A PROCEDURE: TN TOTAL ABDOMINAL HYSTERECT W/WO RMVL TUBE OVARY; COMMENT: Sites. Salpingectomy OTHER SURGICAL HISTORY Right PROCEDURE: TN PRTL THYROID LOBECTOMY UNI W/WO ISTHMUSECTOMY BREAST SURGERY 2019 Left PROCEDURE: TN UNLISTED PROCEDURE BREAST; COMMENT: fibroademona Medical History [...] Health Maintenance Due Date Last Done Comments Colorectal Cancer Screening: Colonoscopy 1972 Diabetes: Annual GFR (Glomerular Filtration Rate) 1972 Diabetes: Annual Foot Exam 1982 Diabetes: Annual Retina Eye Exam 1982 Hepatitis B Vaccines (1 of 3 - 19+ 3-dose series) 1991 Cervical Cancer Screening: Pap Smear 1993 Pneumococcal Vaccine: 50+ Years (2 of 2 - PCV) 2022 05/06/2017 Zoster Vaccines (1 of 2) 2022 Cholesterol Screening (Lipid Panel) 06/28/2022 HIV Screening 06/28/2022 Hepatitis C Screening [...] 2025 0, 04/21/2018, 05/06/2017, Additional history exists RSV Immunization Adult Patients (1 - 1-dose 75+ series) 2047 HIB Vaccines Aged Out No longer eligi [...] Recently Relevant to Health Maintenance Care Teams Audio/Visual Operator Relationship Specialty Start Date End Date Mick Vidal MD [address] [place] [address] PCP - General Internal Medicine 10/18/21
--- OUTSIDE RECORDS SUMMARY | 2025-04-21 13:48 | XMS_ITS | Encounter Summary ---
Author Organization [facility] Address [address] [place] [address] Phone Care Team Providers Care Floor And Wall Applier Liquid Name Role Phone Claudio Mott MD Primary Care Provider [phone] Estephania Padilla NP Primary Care Provider [phone] Encounter Details Date Type Department Care Team (Late st Contact Info) Description 04/09/2021 Procedure [facility] [address] [place] [address] Social History Tobacco Use Types Packs/Day Years [...] documented as of this encounter Care Teams Floor And Wall Applier Liquid Relationship Specialty Start Date End Date Claudio Mott MD [address] [place] [address], [address] [place] [address] [email or web address] PCP - General Neurology 04/16/21 06/30/22 Estephania Padilla NP [address] [address] PCP - General 07/01/22 documented as of this encounter Additional Source Comments The information contained in this document represents components of the legal health record. It is not the complete legal health record.[facility]
--- OUTSIDE RECORDS SUMMARY | 2025-04-21 13:48 | XMS_ITS | Clinical Summary ---
Author Organization [facility] Address [address] [place] [address] Phone Care Team Providers Care Carriage Rider Name Role Phone Estephania Padilla NP Primary Care Provider [phone] Allergies Active Allergy Reactions Criticality Noted Date [...] Description 03/27/2025 1:00 PM EDT Office Visit [facility] Neurology [address] [place] [address] [place] [address] Prem Carrillo MD Seizure as late effect of cerebrovascular accident (CVA) (Primary Dx); Aphasia as late effect of cerebrovascular accident; Hx of ischemic left MCA stroke 02/12/2025 Refill [facility] Neurology [address] [place] [address] [place] [address] Prem Carrillo MD Medication Refill from Last [...] EST) SODIUM 135 133 - 146 mmol/L [facility] CHLORIDE 100 96 - 108 mmol/L [facility] POTASSIUM 4.1 3.3 - 5.1 mmol/L [facility] CO2 26 21 - 35 mmol/L [facility] BUN 11 6 - 19 mg/dL [facility] CREATININE 0.80 0.5 - 1.5 mg/dL [facility] GLUCOSE 158(H) 70 - 99 mg/dL [facility] CALCIUM 9.3 8.4 - 10.3 mg/dL [facility] EGFR 90 >59 mL/min/1.7 3m2 [facility] Comment:Estimated glomerular filtration rate calculated using the CKD-EPI refit equation. ANION GAP 13 10 - 20 mmol/L [facility] Blood 07/05/2021 12:3 1 PM EST 07/05/2021 12:45 PM EST us Giuliana Krishnan PA-C LAB BLOOD ORDERABLES Fi nal Result [facility] [address] [place], [place] [phone] from Last 3 Months or Most Recently Relevant to Health Maintenance Insurance MEDICARE PART A & B [place] A & [facility] [place] & [facility] [place] & B Member Subscriber Plan / Payer (Ef fective 2017-) Name:Virginie [place] Member ID:[id number] Relation to Subscriber:Self Name:Virginie [place] Subscriber ID:[id number] Payer ID:[id number] Group ID:Not on file Type:Medicare Address: [facility] [employer] [facility] [address] [place] [phone] [place] B Member Subscriber Plan / Payer (Ef fective 2017-Present) Name:Virginie [place] Member ID:[id number] Relation to Subscriber:Self Name:Virginie [place] Subscriber ID:[id number] Payer ID:[id number] Group ID:Not on file Type:Medicare Address: [facility] [employer] [facility] [address] [place] [address] [facility] Care Teams Carriage Rider Relationship Specialty Start Date End Date Estephania Padilla NP [address] [place] [address] PCP - General 07/01/22 Additional Source Comments The information contained in this document represents components of the legal health record. It is not the complete legal health record.[facility]
--- OUTSIDE RECORDS SUMMARY | 2025-04-21 13:48 | XMS_ITS | Clinical Summary ---
Author Organization [facility] Address [address] [facility] [facility] [place] [address] Phone Care Team Providers Care Directional Driller Name Role Phone Stephanie García MD Primary Care Provider [phone] Allergies Active Allergy Reactions Criticality Noted Date [...] no shunt 03/23/15- AC management transferred to [facility]. 05/29/16- warfarin stopped per Neuro. On asa 81 mg daily. Seizure 02/08/2015 Overview (10/07/2022): effexor and neurontin started at [facility] and were stopped due to ? 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 07/07/2006 Overview (10/07/2022): Rxd; [place] O update Iron deficiency anemia 03/17/2006 Unspecified lump [...] Office Visit [facility] [address] [address] Gianna Mart ARNP [address] [address] Health Maintenance Due Date Last [...] Urine 11-30(A) 0 - 5 /hpf [facility] RBC, Urine 3-10(A) 0 - 2 /hpf [facility] Squamous Epithelial, Urine >10(A) 0 - 10 /hpf [facility] Casts None seen None seen /lpf [facility] Crystals Present(A) N/A [facility] Crystal Type Calcium Oxalate N/A [facility] Bacteria, Urine Few None seen/Few [facility] 01/26/2025 3:08 PM EDT 01/26/2025 [facility] LAB MICROBIOLOGY - GENERAL ORDERABLES Final Result Performing Organization Address City/[facility]/ZIP Co de Phone Number [facility] [address] [place] [address] * Iron Panel (Fe, TIBC, TSAT) (01/26/2025 3:08 PM EDT) TIBC 301 250 - 450 ug/dL [facility] UIBC 241 131 - 425 ug/dL [facility] Iron 60 27 - 159 ug/dL [facility] Iron Saturation (TSat) 20 15 - 55 % [facility] Blood specimen (specimen) Venous blood / Unknown 01/26/2025 3:08 PM EDT 01/26/2025 [facility] LAB BLOOD ORDERABLES Final Result [facility] [address] [place] [address] * (ABNORMAL) Urine Protein / creatinine ratio (01/26/2025 3:08 PM EDT) Creatinine, Ur 329.0 Not Estab. mg/dL [facility] Protein, Ur 138.8 Not Estab. mg/dL [facility] Urine Protein/Creati nine Ratio 422(H) 0 - 200 mg/g creat [facility] Urine specimen (specimen) Urine specimen obtained by clean catch procedure / Unknown 01/26/2025 3:08 PM EDT 01/26/2025 [facility] LAB URINE ORDERABLES Final Result [facility] [address] [place] [address] * Vitamin D 25 hydroxy (01/26/2025 3:08 PM EDT) Vitamin D, 25-OH, Total 44.5 30.0 - 100.0 ng/mL [facility] Comment: Vitamin D deficiency has been defined by the [place] of Medicine and an Endocrine Society practice guideline as a level of serum 25-OH vitamin D less than 20 ng/mL (1,2). The Endocrine Society went on to further define vitamin D insufficiency as a level between 21 and 29 ng/mL (2). 1. IOM ([place] of Medicine). 2010. Dietary reference intakes for calcium and D. [place]: The National Academies Press. 2. Anthony MF, Pat HARTLEY, Aruna DOMINGUEZ, et al. Evaluation, treatment, and prevention of vitamin D deficiency: an Endocrine Society clinical practice guideline. JCEM. 2010; 96(7):1911-30. Blood specimen (specimen) Venous blood / Unknown 01/26/2025 3:08 PM EDT 01/26/2025 [facility] LAB BLOOD ORDERABLES Final Result [facility] [address] [place] [address] * (ABNORMAL) Urinalysis with microscopic (01/26/2025 3:08 PM EDT) Specific [place], Urine >=1.030(A) 1.005 - 1.030 [facility] pH Urine 5.5 5.0 - 7.5 [facility] Color, Urine Yellow Yellow [facility] Appearance Urine Cloudy(A) Clear [facility] [phone] WBC Esterase Urine 1+(A) Negative [facility] Protein, Ur 2+(A) Negative/Tra ce [facility] Glucose, Ur Negative Negative [facility] Ketones, Urine Trace(A) Negative [facility] Blood Urine 2+(A) Negative [facility] [phone] Bilirubin Urine Negative Negative [facility] Urobilinogen Urine 1.0 0.2 - 1.0 mg/dL [facility] Nitrite, Urine Negative Negative [facility] Microscopic Examination See below: [facility] [phone] Comment:Microscopic was asher cated and was performed. Urine specimen (specimen) Urine specimen obtained by clean catch procedure / Unknown 01/26/2025 3:08 PM EDT 01/26/2025 Gianna Mart [facility] LAB URINE ORDERABLES Final Result [facility] [address] [place] [address] * CBC (01/26/2025 3:08 PM EDT) WBC 7.4 3.4 - 10.8 x10E3/uL [facility] RBC 4.47 3.77 - 5.28 x10E6/uL [facility] Hemoglobin 13.2 11.1 - 15.9 g/dL [facility] Hematocrit 39.0 34.0 - 46.6 % [facility] MCV 87 79 - 97 fL [facility] MCH 29.5 26.6 - 33.0 pg [facility] MCHC 33.8 31.5 - 35.7 g/dL [facility] RDW 12.7 11.7 - 15.4 % [facility] Platelets 361 150 - 450 x10E3/uL [facility] Blood specimen (specimen) Venous blood / Unknown 01/26/2025 3:08 PM EDT 01/26/2025 [facility] LAB BLOOD ORDERABLES Final Result [facility] [address] [place] [address] * PTH, intact (01/26/2025 3:08 PM EDT) Pathologist [facility] PTH 27 15 - 65 pg/mL [facility] Blood specimen (specimen) Venous blood / Unknown 01/26/2025 3:08 PM EDT 01/26/2025 [facility] LAB BLOOD ORDERABLES Final Result [facility] [address] [place] [address] * (ABNORMAL) Ferritin (01/26/2025 3:08 PM EDT) Ferritin 257(H) 15 - 150 ng/mL [facility] Blood specimen (specimen) Venous blood / Unknown 01/26/2025 3:08 PM EDT 01/26/2025 Giannaglory Mart [facility] LAB BLOOD ORDERABLES Final Result [facility] [address] [place] [address] * (ABNORMAL) Renal function panel (01/26/2025 3:08 PM EDT) Glucose 104(H) 70 - 99 mg/dL [facility] BUN 14 6 - 24 mg/dL [facility] Creatinine 0.90 0.57 - 1.00 mg/dL [facility] eGFR CKD-EPI CR 2020 77 >59 mL/min/1.7 3 [facility] BUN/Creatinine Ratio 16 9 - 23 [facility] Sodium 142 134 - 144 mmol/L [facility] Potassium 4.2 3.5 - 5.2 mmol/L [facility] Chloride 101 96 - 106 mmol/L [facility] Bicarbonate (CO2) 24 20 - 29 mmol/L [facility] Calcium 9.6 8.7 - 10.2 mg/dL [facility] Phosphorus 3.5 3.0 - 4.3 mg/dL [facility] Albumin 4.7 3.8 - 4.9 g/dL [facility] Blood specimen (specimen) Venous blood / Unknown 01/26/2025 3:08 PM EDT 01/26/2025 Gianna Mart [facility] LAB BLOOD ORDERABLES Final Result [facility] [address] [place] [address] from Last 3 Months Insurance Medicare Medicaid [place] Medicare Medicaid [place] Care Teams Directional Driller Relationship Specialty Start Date End Date Stephanie García MD [address] [place] [address] PCP - General Internal Medicine 01/05/24
== END 2025-04-21 14:25 | disposition home or self-care (01) ==
LOC: HO.HMCH 13:32
PROVIDERS: PCP Internal Medicine; Visit Provider Nurse Practitioner Family
DX: R55 Syncope and collapse (principal)

== ENCOUNTER → 2025-04-21 13:31 | Outpatient (BNVA) | payer MEDICARE, MEDICAID, SELFPAY | PROVIDERS: PCP Internal Medicine; Visit Provider Nurse Practitioner Family | DX: R55 Syncope and collapse (principal); I69.398 Other sequelae of cerebral infarction | CPT/HCPCS: 96127; 99495 ==

== ENCOUNTER 2025-05-23 14:28 | Outpatient (REF) | payer MEDICARE, MEDICAID, SELFPAY ==
--- NOTE | ~2025-05-23 | XR_ITS ---
EXAMINATION: X-ray right ankle X-ray right foot CLINICAL INFORMATION: Contracture, unspecified ankle Metatarsophalangeal right foot COMPARISON: None TECHNIQUE: Ankle 4 views. Foot 3 views. FINDINGS: Ankle: Plantar flexion at the ankle joint. Limited evaluation of the structures on the AP and oblique views due to the atypical positioning/overlapping structures. Within the limitations study, no gross acute fracture is identified of the distal tibia-fibula. Limited evaluation ankle mortise. Limited evaluation of the hindfoot on the provided views, no acute fracture identified on the provided limited images. Lateral ankle soft tissue swelling. No significant tibiotalar joint effusion is seen. No suspicious bony lesion. Bone mineralization is normal. Foot: Plantar flexion positioning limits evaluation. On image 1, the bony articulations appear anatomic.. Tarsometatarsal alignment grossly appears maintained, limiting evaluation. No visible acute fracture. No suspicious bony lesion seen. No significant joint space narrowing or spurring is identified on the provided images.. No abnormal soft tissue calcification. No erosions identified.. Tiny plantar calcaneal spur. XR/XR ankle RT min 3V IMPRESSION: Limited study. Plantar flexion of the ankle joint, overlapping osseous structures, markedly limiting evaluation. On the provided views, no acute fracture is seen. No suspicious bony lesion. Additional findings as above. Electronically signed by: Bill Brown MD 05/24/2025 01:03 PM RAMIRO
--- NOTE | ~2025-05-23 | XR_ITS ---
EXAMINATION: X-ray right ankle X-ray right foot CLINICAL INFORMATION: Contracture, unspecified ankle Metatarsophalangeal right foot COMPARISON: None TECHNIQUE: Ankle 4 views. Foot 3 views. FINDINGS: Ankle: Plantar flexion at the ankle joint. Limited evaluation of the structures on the AP and oblique views due to the atypical positioning/overlapping structures. Within the limitations study, no gross acute fracture is identified of the distal tibia-fibula. Limited evaluation ankle mortise. Limited evaluation of the hindfoot on the provided views, no acute fracture identified on the provided limited images. Lateral ankle soft tissue swelling. No significant tibiotalar joint effusion is seen. No suspicious bony lesion. Bone mineralization is normal. Foot: Plantar flexion positioning limits evaluation. On image 1, the bony articulations appear anatomic.. Tarsometatarsal alignment grossly appears maintained, limiting evaluation. No visible acute fracture. No suspicious bony lesion seen. No significant joint space narrowing or spurring is identified on the provided images.. No abnormal soft tissue calcification. No erosions identified.. Tiny plantar calcaneal spur. XR/XR foot RT min 3V IMPRESSION: Limited study. Plantar flexion of the ankle joint, overlapping osseous structures, markedly limiting evaluation. On the provided views, no acute fracture is seen. No suspicious bony lesion. Additional findings as above. Electronically signed by: Bill Brown MD 05/24/2025 01:03 PM [facility]
== END 2025-05-23 14:29 | disposition home or self-care (01) ==
LOC: HO.XRAY 14:28
PROVIDERS: PCP Internal Medicine; Visit Provider Student in an Organized Health Care Education/Training Program
DX: M21.371 Foot drop, right foot (principal); M24.571 Contracture, right ankle; M77.41 Metatarsalgia, right foot; I69.959 Hemiplegia and hemiparesis following unspecified cerebrovascular disease affecting unspecified side
CPT/HCPCS: 73610; 73630; 99202

== ENCOUNTER 2025-05-23 14:28 | Outpatient (AMB) | payer MEDICARE, MEDICAID, SELFPAY ==
--- NOTE | 2025-05-23 14:55 | MHC.OFFVIS ---
Intake Visit Reasons: Right Foot/Toe pain Intake Note: Virginie is a 55 year old female who presents today as a new patient for an evaluation of her right foot and toe pain. pain is located on the plantar aspect of her right hallux and has been going on for about 2 years. She has tried OTC pain medication and cream and has found no relief for her symptoms. 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 The patient states she has seen another provider who has tried injections to her big toe which have not helped. Of note, the patient has an AFO brace she has used since 2014, and only use when she is wearing shoes. She also sees physical therapy. She is also concerned about a dark spot over her right big toenail. [facility] Medical History Microalbuminuria due to type 2 diabetes mellitus Mild aphasia CVA (cerebral vascular accident) Diabetes Seizures Elevated cholesterol Hypertension Ecchymosis Encounter to establish care Hx of cyst of breast Surgical History Hx of colonoscopy History of partial hysterectomy History of thyroid surgery Family History Mother Bone cancer Hypertension Diabetes Father Diabetes Hypertension Maternal Aunt Breast cancer, Onset Age: 49 Family/Other Mental health disorder Social History Household Members: Children Household Members Other:: Lives with family Housing: House Do you presently have visiting nurse or other home services: No Alcohol intake: never Patient Tobacco Use Status: Never used Tobacco e-Cigarette/Vaping Use: Never Used Second Hand Smoke Exposure: No service: No Current occupational status: unemployed Cognitive needs: Yes (cane ) Hearing needs: No Vision needs: Yes (glasses) Female Reproductive History Menstrual Age of Menarche: 12 Review of Systems Const All systems reviewed & are unremarkable except as noted in HPI and below Physical Exam Extrem Other: *Bilateral Lower Extremity Focused Diabetic Foot Exam Vascular: DP/PT 1/4, CFT<3s to digits, TG warm to cool, no pedal edema, pedal hair absent Derm: Dry 2 mm subungual hematoma right hallux. Neuro: Diminished proprioception and gross protective sensation to the right foot. Msk: Moderate tenderness on palpation of the plantar aspect of the right hallux IPJ. Right lower extremity complete dorsiflexion weakness. On weight-bearing, right hip and knee are flexed, heel does not touch the ground, loading mostly on the right foot medial column and hallux. Gait: right dropfoot Footwear Assessment: Shoes and AFO brace inspected. mild increased wear to the sub 1, 2nd, and 3rd. Assessment & Plan Assessment & Plan (1) Foot drop, right: Code(s): M21.371 - Foot drop, right foot Category: Medical Plan: Continue AFO. We will plan for increased padding to the right hallux/1st ray to aid in dorsiflexion to the digit and transfer loading to the 1st Metatarsal-phalangeal joint instead of the IPJ. The patient is referred to PMR for a brace that spans past her knee, potentially a KAFO or HKAFO. Orders: Orders XR foot RT min 3V Today M24.573 - Contracture, unspecified ankle, M77.41 - Metatarsalgia, right foot XR ankle RT min 3V Today M24.573 - Contracture, unspecified ankle Referrals Physiatry Referral I63.9 - Cerebral infarction, unspecified, I69.959 - Hemiplegia and hemiparesis following unspecified cerebrovascular disease affecting unspecified side Coding Level of Care Code New Pt Level 4 (59926) Diagnoses Foot drop, right M21.371 Time Spent (min) 35
--- OUTSIDE RECORDS SUMMARY | 2025-05-23 17:32 | XMS_ITS | Clinical Summary ---
Author Organization [facility] Address [address] [place] [address] Phone Care Team Providers Care Government Guard Name Role Phone Stephanie García MD Primary Care Provid er Allergies Active Allergy Reactions Criticality Noted Date Comments Edetate Disodium Rash Low 08/14/2005 Erythromycin 08/19/2022 Latex Rash Low 03/08/2014 Penicillins 08/19/2022 Medications blood sugar diagnostic (ACCU-CHEK TRISH PLUS) Strp strips Check blood sugars daily. 09/09/19 22 Active atorvastatin (LIPITOR) 20 MG tablet Take 1 tablet by mouth every morning. 10/20/19 23 Active aspirin 325 MG tablet Take 325 mg by mouth. Active multivit-minerals/ folic/ginkgo (WOMEN'S 50+ DAILY FORM, GKB, ORAL) Act patience lisinopril (PRINIVIL,ZESTRIL) 2.5 MG tablet Active lancing device with lancets Kit Check blood sugars daily 09/09/19 22 Active lamoTRIgine (LAMICTAL) 150 MG IMMEDIATE release tabletIndications: Seizure as late effect of cerebrovascular accident (CVA) TAKE 1 TABLET BY MOUTH TWICE A DAY 180 tablet 3 02/14/20 25 Active gabapentin (NEURONTIN) 100 MG capsule take 1 capsule by mouth 3 times a day for 30 days 04/19/20 25 Active pantoprazole (PROTONIX) 40 MG tablet Take 40 mg by mouth. 10/22/19 25 Active rosuvastatin (CRESTOR) 40 MG tablet Take 40 mg by mouth daily. Active OZEMPIC 1 mg/dose (4 mg/3 mL) subcutaneous injection pen inject 1 mg (0.75 ml) subcutaneously weekly 01/05/20 25 Active LORazepam (ATIVAN) 0.5 MG tabletIndications: Seizure as late effect of cerebrovascular accident (CVA) Take 1 tablet (0.5 mg total) by mouth every 6 (six) hours as needed for anxiety (Seizure lasting longer than 5 minutes or more than 2 seizures within an hour). 10 tablet 5 05/15/20 25 Active levETIRAcetam (KEPPRA) 1000 MG IMMEDIATE release tabletIndications: Seizure as late effect of cerebrovascular accident (CVA) Take 1 tablet (1,000 mg total) by mouth every evening. 90 tablet 3 05/19/20 25 Active levETIRAcetam (KEPPRA) 750 MG IMMEDIATE release tabletIndications: Seizure as late effect of cerebrovascular accident (CVA) Take 1 tablet (750 mg total) by mouth every morning. 90 tablet 3 05/19/20 25 Active dulaglutide (TRULICITY) 0.75 mg/0.5 mL subcutaneous injection INJECT 0.75 MG (0.5 ML) SUBCUTANEOUSLY EVERY WEEK 06/26/202024 Disconti nued(No longer taking) TRULICITY 0.75 mg/0.5 mL subcutaneous injection INJECT 0.75 MG (0.5 ML) SUBCUTANEOUSLY WEEKLY 11/15/19 23 2024 Disconti nued(No longer taking) triamcinolone acetonide 0.05 % Oint Apply 1 g topically. 07/22/192024 Disconti nued(No longer taking) naproxen (NAPROSYN) 500 MG tablet Take 1 tablet (500 mg total) by mouth 2 (two) times a day for 3 days. Then twice daily as needed for pain, inflammation 20 tablet 01/01/20 24 2024 Disconti nued(No longer taking) chlorhexidine (PERIDEX) 0.12 % solution Swish and spit 15 mL 2 (two) times a day. For 30 sec.do not swallow. 473 mL 01/01/20 24 2024 Disconti nued(No longer taking) levETIRAcetam (KEPPRA) 1000 MG IMMEDIATE release tabletIndications: Seizure as late effect of cerebrovascular accident (CVA) TAKE 1/2 TABLET BY MOUTH EVERY MORNING AND TAKE 1 TABLET EVERY EVENING 135 tablet 5 10/25/19 25 2024 Karla gaston(Reo rder) Active Problems No known active problems Encounters Date Type Department Care Team Description 05/17/2025 Telephone [facility] Department of Neurology [address] [place] [address], 8th Floor, [address] [place] [address] Unknown, Unknown, MD 05/15/2025 11:23 AM EDT - 05/15/2025 11:59 PM EDT Hospital Encounter [facility] [address] [place] [address] Prem Carrillo MD Discharge Disposition: Home or Self Care 05/15/2025 10:30 AM EDT Office Visit [facility] Neurology [address] [place] [address] [place] [address] Prem Carrillo MD Seizure as late effect of cerebrovascular accident (CVA) (Primary Dx); Hx of ischemic left MCA stroke; Aphasia as late effect of cerebrovascular accident; Spasticity as late effect of cerebrovascular accident (CVA); On antiepileptic therapy 05/15/2025 Transcribe Orders [facility] [address] [place] [address] Prem Carrillo MD Seizure as late effect of cerebrovascular accident (CVA) (Primary Dx); On antiepileptic therapy 04/28/2025 10:30 AM EDT Office Visit [facility] Neurology [address] [place] [address] [place] [address] Felicitas Coley PA-C Seizure as late effect of cerebrovascular accident (CVA) (Primary Dx); Hx of ischemic left MCA stroke; Aphasia as late effect of cerebrovascular accident; Spasticity as late effect of cerebrovascular accident (CVA); Tongue biting; Daytime sleepiness 04/26/2025 Telephone [facility] Neurology [address] [place] [address] [place] [address] Prem Carrillo MD 04/24/2025 Telephone [facility] Neurology [address] [place] [address] [place] [address] Racquel Costello MA 03/27/2025 1:00 PM EDT Office Visit [facility] Neurology [address] [place] [address] Prem Carrillo MD Seizure as late effect of cerebrovascular accident (CVA) (Primary Dx); Aphasia as late effect of cerebrovascular accident; Hx of ischemic left MCA stroke from Last 3 Months Social History Tobacco [...] Sign Reading Time Taken Comments Blood Pressure 124/76 04/28/2025 3:17 PM EDT sta nding Pulse 92 04/28/2025 3:17 PM EDT Temperature 36.8 C (98.3 F) 01/01/2024 12:17 PM EDT Respiratory Rate 16 01/01/2024 12:17 PM EDT Oxygen Saturation 98% 04/28/2025 3:17 PM EDT Inhaled Oxygen Concentration - - Weight 68.9 kg (152 lb) 01/01/2024 12:17 PM EDT Height 165.1 cm (5' 5 ) 01/01/2024 12:17 PM EDT Body Mass Index 25.29 01/01/2024 12:17 PM EDT Plan of Treatment Upcoming Encounters Date Type Department Care Team (Late st Contact Info) Description 07/26/2025 9:00 AM EST Telemedicine [facility] Department of Neurology [address] [place] [address], 8th Floor, [address] [place] [address] Dianna Klein MD, MSc [address] [place] [address] [email or web address] 09/18/2025 2:30 PM EST Office Visit [facility] Neurology [address] [place] [address] [place] [address] Prem Carrillo MD [address] [place] [address], [address] [place] [address] [email or web address] 11/13/2025 3:00 PM EDT Office Visit [facility] Neurology [address] [place] [address] [place] [address] Felicitas Coley PA-C [address] [place] [address], [address] [place] [address] [email or web address] Health Maintenance Due Date Last Done Comments [...] 07/05/2022 07/05/2021, 06/09/2021 INFLUENZA VACCINE (#1) 2025 3, 05/25/2020, 05/16/2019, Additional history exists COVID-19 VACCINE (1 - 2024- season) 2025 LIPID PANEL 05/13/2026 05/13/2021 Adult Td,Tdap Booster 02/03/2033 02/03/2023 , 01/24/2013, 03/22/2002 RSV VACCINE (1 - 1-dose 75+ series) 2047 SMOKING STATUS SCREENING (Once After 26 Yrs) [...] Date/Time Associated Diagnosis Comments BASIC METABOLIC PANEL (BMP) STAT 07/05/2021 12:31 PM EST from Last 3 Months or Most Recently Relevant to Health Maintenance Results * (ABNORMAL) Basic metabolic panel (07/05/2021 12:31 PM EST) SODIUM 135 133 - 146 mmol/L [facility] CHLORIDE 100 96 - 108 mmol/L [facility] POTASSIUM 4.1 3.3 - 5.1 mmol/L [facility] CO2 26 21 - 35 mmol/L [facility] BUN 11 6 - 19 mg/dL [facility] CREATININE 0.80 0.5 - 1.5 mg/dL [facility] GLUCOSE 158(H) 70 - 99 mg/dL [facility] CALCIUM 9.3 8.4 - 10.3 mg/dL [facility] EGFR 90 >59 mL/min/1.7 3m2 [facility] Comment:Estimated glomerular filtration rate calculated using the CKD-EPI refit equation. ANION GAP 13 10 - 20 mmol/L [facility] Blood 07/05/2021 12:3 1 PM EST 07/05/2021 12:45 PM EST us Giuliana Krishnan PA-C LAB BLOOD BKR ORDERABLE S Final Result [facility] [address] [address] from Last 3 Months or Most Recently Relevant to Health Maintenance Insurance MEDICARE PART A & B [facility] MEDIC[facility] PART A & [facility] MEDIC[facility] PART A & [facility] MEDIC[facility] PART A & [facility] B [facility] MED[facility] PART A & B [facility] Care Teams Government Guard Relationship Specialty Start Date End Date Stephanie García MD [address] [place] [address] PCP - General Internal Medicine 04/28/25 Additional Source Comments The information contained in this document represents components of the legal health record. It is not the complete legal health record.[facility]
--- OUTSIDE RECORDS SUMMARY | 2025-05-23 17:32 | XMS_ITS | Encounter Summary ---
Author Organization [facility] Address [address] [place] [address] Phone Care Team Providers Care Professional Services Consultant Name Role Phone Claudio Mott MD Primary Care Provider Estephania Padilla NP Primary Care Provider [phone] Stephanie García MD Primary Care Provid er Encounter Details Date Type Department Care Team (Late st Contact Info) Description 04/09/2021 Procedure Pass [facility], [address] [address] Social History Tobacco Use Types Packs/Day Years [...] Info) Description 07/26/2025 9:00 AM EST Telemedicine [facility] Department of Neurology [address] [place] [address], 8th Floor, [address] [place] [address] Dianna Klein MD, MSc [address] [place] [address] [email or web address] 09/18/2025 2:30 PM EST Office Visit [facility] Neurology [address] [place] [address] Prem Carrillo MD [address] [facility], 2nd [place] [address] [email or web address] 11/13/2025 3:00 PM EDT Office Visit [facility] Neurology [address] [place] [address] Felicitas Coley PA-C [address] [place] [address], 3[address] [place] [address] [email or web address] documented as of this encounter Visit Diagnoses Not on filedocumented in this encounter Additional Health Concerns Infection Onset Date Last Indicated Resolved Time CoV-Exposed Comment:Positive COVID-19 06/09/2021 06/09/2021 06/09/2021 6:1 4 AM EST CoV-Risk 06/09/2021 06/09/2021 06/09/2021 6:14 AM EST COVID-19 06/09/2021 06/09/2021 06/30/2021 1:21 AM EST documented as of this encounter Care Teams Professional Services Consultant Relationship Specialty Start Date End Date Claudio Mott MD [address] [place] [address], [address] [place] [address] [email or web address] PCP - General Neurology 04/16/21 06/30/22 Estephania Padilla NP [address] [place] [address] [place] [address] [place] [address] PCP - General 07/01/22 04/27/25 Stephanie García MD [address] [place] [address] PCP - General Internal Medicine 04/28/25 documented as of this encounter Additional Source Comments The information contained in this document represents components of the legal health record. It is not the complete legal health record.[facility]
--- OUTSIDE RECORDS SUMMARY | 2025-05-23 17:32 | XMS_ITS | Encounter Summary ---
Author Organization [facility] Address [address] [place] [address] Phone Care Team Providers Care Rip And Groove Machine Operator Name Role Phone Claudio Mott MD Primary Care Provider [phone] Estephania Padilla NP Primary Care Provider [phone] Stephanie García MD Primary Care Provid er Reason for Referral * MRI/CAT Scan - Closed Specialty Diagnoses / Procedures Referred By Shalom kessler Referred To Contact Radiology Diagnoses Blurred vision Nonintractable headache, unspecified chronicity pattern, unspecified headache type Procedures MRI Brain Claudio Mott MD Phone: tel: fax: [email or web address] Referral ID Status Reason Start Date Expiration Date Visits Re quested Visits Authorized [id number] Closed 04/09/2021 04/09/2022 1 1 Encounter Details Date Type Department Care Team (Latest Contact Info) Description 04/09/2021 Transcribe Orders Virtual Department [address] [place] [address] Claudio Mott MD [address] [place] [address], [address] [place], [place] [id number] [phone] ([email or web address] Blurred vision (Primary Dx); Nonintractable headache, [...] Info) Description 07/26/2025 9:00 AM EST Telemedicine [facility] Department [place]rology [address] [place] [address], 8th Floor, [address] [place] [address] Dianna Klein MD, MSc [address] [place] [id number] [email or web address] 09/18/2025 2:30 PM EST Office Visit [facility] Neurology [address] [place] [address] [place] [address] Prem Carrillo MD [address] [place] [address], [address] [place] [address] [email or web address] 11/13/2025 3:00 PM EDT Office Visit [facility] Neurology [address] [place] [address] [place] [address] Felicitas Coley PA-C [address] [place] [address], [address] [place] [address] [email or web address] documented as of this encounter Results * [...] right are similar to prior study. No zgzec-aowck-[id number] blood or fluid collection, mass, or mass [...] and diffusion-weighted imaging with ADC map, coronal [id number] and STIR, sagittal T1 sequences were obtained. [...] the right are similar toprior study. No tgecn-[id number]-[id number] blood or fluid collection, mass, or masseffect [...] No acuteintracranial ischemia, mass, or hemorrhage identified. Claudio Mott MD IMG MR HEAD/NECK Final [...] documented as of this encounter Care Teams Rip And Groove Machine Operator Relationship Specialty Start Date End Date Claudio Mott MD [address] [place] [address], [address] [place] [address] PCP - General Neurology 04/16/21 06/30/22 Estephania Padilla NP [address] [place] [address] [facility] [place] [address] PCP - General 07/01/22 04/27/25 Stephanie García MD [address] [place] [address] PCP - General Internal Medicine 04/28/25 documented as of this encounter Additional Source Comments The information contained in this document represents components of the legal health record. It is not the complete legal health record.[facility]
== END 2025-05-23 15:23 | disposition home or self-care (01) ==
LOC: HO.HPODS 14:29
PROVIDERS: PCP Internal Medicine; Visit Provider Student in an Organized Health Care Education/Training Program
DX: M21.371 Foot drop, right foot (principal)
CPT/HCPCS: 99204

== ENCOUNTER → 2025-05-23 15:56 | Outpatient (BNV) | payer MEDICARE, MEDICAID, SELFPAY | PROVIDERS: PCP Internal Medicine; Visit Provider Radiology Diagnostic Ultrasound | DX: M24.571 Contracture, right ankle (principal); M77.41 Metatarsalgia, right foot | CPT/HCPCS: 73610; 73630 ==

== ENCOUNTER 2025-05-24 14:52 | Outpatient (AMB) | payer MEDICARE, MEDICAID, SELFPAY ==
--- OUTSIDE RECORDS SUMMARY | 2020-01-03 23:00 | XMS_ITS | Encounter Summary ---
Author Organization [facility] Address [address] [place] [phone] Phone Care Team Providers Care Heavy Mobile Equipment Repairer Name Role Phone Unavailable Primary Care Provider Unavailabl e Encounter Details Date Type Department Care Team (Late st Contact Info) Description 01/04/2020 Hospital Encounter [facility] Imaging [address] [place] [address] Unknown, Unknown, MD Arrived Social History Tobacco Use Types Packs/Day Years Used Date Smoking Tobacco: Never Smokeless Tobacco: Never Education Answer Date Recorded Are you interested in more education? Not on shaun e 11/14/2022 Are you concerned about learning? Not on file 11/14/2022 No 11/14/2022 No 11/14/2022 Digital Access Answer Date Recorded No 12/13/2022 No 12/13/2022 Reliable internet access at home? Not on file 12/13/2022 Device with a working camera? Not on file Comments Unknown Sex and Gender Information Value Date Recorded Sex Assigned at Female 06/09/2021 4:40 AM EST Legal Sex Female 9:32 PM EDT Gender Identity Female 06/09/2021 4:40 AM EST Sexual Orientation Straight 06/09/2021 4: 40 AM EST documented as of this encounter Functional Status * Calculated C-SSRS Risk Score (Lifetime/Recent) Answer Date of Assessment Author No Risk Indicated 07/05/2021 11:31 AM EST Josey Sellers RN * [place] Suicide Severity Rating Scale (Screener/Recent Self-Report) Question Answer Date of Assessment Author 1. Wish to be (Past 1 Month) No 07/05/2021 11:31 AM EST Josey Seaman RN 2. Non-Specific Active Suici anoop Thoughts (Past 1 Month) No 07/05/2021 11:31 AM EST Danica Seaman cia, RN 6. Suicidal Behavior (Lifetime) No 11:31 AM EST Josey Seaman RN documented as of this encounter Plan of Treatment Upcoming Encounters Date Type Department Care Team (Late st Contact Info) Description 07/26/2025 9:00 AM EST Telemedicine [facility] Department of Neurology [address] [place] [address], 8th Floor, [address] [place] [address] Dianna Klein MD, MSc [address] [place] [phone] [email or web address] 09/18/2025 2:30 PM EST Office Visit [facility] Neurology [address] [place] [phone] Prem Carrillo MD [address] [place] [address], [address] [place] [address] [email or web address] 11/13/2025 3:00 PM EDT Office Visit [facility] Neurology [address] [place] [phone] Felicitas Coley PA-C [address] [place] [address] [address] [place] [address] [email or web address] documented as of this encounter Procedures Procedure Name Priority Date/Time Associated Diagnosis Comments FL ABDOMEN OUTSIDE (NO INTERPRETATION) Routine 01/04/2020 12:00 AM EDT documented in this encounter Results * FL Abdomen Outside (No Interpretation) (01/04/2020 12:00 AM EDT) Narrative [facility] IMG INTERFACES - 05/24/2025 10:43 AM EST This study is for PACS storage only and not for interpretation. us Unknown Unknown IMG OUTSIDE IMAGING W/OUT INT ERPRETATION Final Result [facility] IM[facility] INTERFACES documented in this encounter Visit Diagnoses Not on filedocumented in this encounter Additional Health Concerns Infection Onset Date Last Indicated Resolved Time CoV-Exposed Comment:Positive COVID-19 06/09/2021 06/09/2021 06/09/2021 6: 14 AM EST CoV-Risk 06/09/2021 06/09/2021 06/09/2021 6:14 AM EST COVID-19 06/09/2021 06/09/2021 06/30/2021 1:21 AM EST documented as of this encounter Additional Source Comments The information contained in this document represents components of the legal health record. It is not the complete legal health record.[facility]
--- OUTSIDE RECORDS SUMMARY | 2020-01-16 23:00 | XMS_ITS | Encounter Summary ---
Author Organization [facility] Address [address] [place] [phone] Phone Care Team Providers Care Parer Name Role Phone Unavailable Primary Care Provider Unavailabl e Encounter Details Date Type Department Care Team (Late st Contact Info) Description 01/17/2020 Hospital Encounter [facility] Imaging [address] [place] [address] Unknown, Unknown, MD Arrived Social History Tobacco [...] 11:31 AM EST Josey Sellers RN * [place] Suicide Severity Rating Scale (Screener/Recent Self-Report) Question [...] Info) Description 07/26/2025 9:00 AM EST Telemedicine [facility] Department of Neurology [address] [place] [address], 8th Floor, [address] [place] [address] Dianna Klein MD, MSc [address] [place] [phone] [email or web address] 09/18/2025 2:30 PM EST Office Visit [facility] Neurology [address] [place] [phone] Prem Carrillo MD [address] [place] [address], [address] [place] [address] [email or web address] 11/13/2025 3:00 PM EDT Office Visit [facility] Neurology [address] [place] [phone] Felicitas Coley PA-C [address] [place] [address] [address] [place] [address] [email or web address] documented as of this encounter Procedures Procedure Name Priority Date/Time Associated Diagnosis Comments XR CHEST OUTSIDE (NO INTERPRETATION) Routine 01/17/2020 12:00 AM EDT documented in this encounter Results * XR Chest Outside (No Interpretation) (01/17/2020 12:00 AM EDT) Narrative [facility] IMG INTERFACES - 05/24/2025 10:43 AM EST This study is for PACS storage only and not for interpretation. us Unknown Unknown IMG OUTSIDE IMAGING W/OUT INT ERPRETATION Final Result [facility] IMG INTERFACES documented in this encounter Visit Diagnoses Not on filedocumented in this encounter Additional Health Concerns Infection Onset Date Last Indicated Resolved Time CoV-Exposed Comment:Positive COVID-19 06/09/2021 06/09/2021 06/09/2021 6:1 4 AM EST CoV-Risk 06/09/2021 06/09/2021 06/09/2021 6:14 AM EST COVID-19 06/09/2021 06/09/2021 06/30/2021 1:21 AM EST documented as of this encounter Additional Source Comments The information contained in this document represents components of the legal health record. It is not the complete legal health record.[facility]
--- OUTSIDE RECORDS SUMMARY | 2020-01-25 23:00 | XMS_ITS | Encounter Summary ---
Author Organization [facility] Address [address] [place] [phone] Phone Care Team Providers Care Home Care Music Therapist Name Role Phone Unavailable Primary Care Provider Unavailabl e Encounter Details Date Type Department Care Team (Late st Contact Info) Description 01/26/2020 Hospital Encounter [facility] Imaging [address] [place] [address] Unknown, Unknown, MD Arrived Social History Tobacco [...] 11:31 AM EST Josey Sellers RN * [place] Suicide Severity Rating Scale (Screener/Recent Self-Report) Question [...] Info) Description 07/26/2025 9:00 AM EST Telemedicine [facility] Department of Neurology [address] [place] [address], 8th Floor, [address] [place] [address] Dianna Klein MD, MSc [address] [place] [phone] [email or web address] 09/18/2025 2:30 PM EST Office Visit [facility] Neurology [address] [place] [phone] Prem Carrillo MD [address] [place] [address], [address] [place] [address] [email or web address] 11/13/2025 3:00 PM EDT Office Visit [facility] Neurology [address] [place] [phone] Felicitas Coley PA-C [address] [place] [address] [address] [place] [address] [email or web address] documented as of this encounter Procedures Procedure Name Priority Date/Time Associated Diagnosis Comments FL ABDOMEN OUTSIDE (NO INTERPRETATION) Routine 01/26/2020 12:00 AM EDT documented in this encounter Results * FL Abdomen Outside (No Interpretation) (01/26/2020 12:00 AM EDT) Narrative [facility] IMG INTERFACES - 05/24/2025 10:43 AM EST This study is for PACS storage only and not for interpretation. us Unknown Unknown IMG OUTSIDE IMAGING W/OUT INT ERPRETATION Final Result [facility] IMG INTERFACES documented in this encounter Visit [...] It is not the complete legal health record.[facility]
--- NOTE | 2025-05-24 15:05 | A.OFFVIS_ITS ---
Vital Signs 05/24/25 15:06 Height 5 ft 6 in Weight 169 lb 12.095 oz BMI 27.4 BP 100/60 Blood Pressure Location Rt brachial Position Sitting Pulse 71 Pulse Source Pulse Oximeter Pulse Oximetry (%) 96 Oxygen Delivery Method Room Air Intake Visit Reasons: dm Intake Note: Patient presents today for a follow-up on Type 2 Diabetes Mellitus: Last Diabetic eye exam was on: 04/2024, has a coming up appt 05/14/2025, [facility] Last Podiatry exam was on: Does not see a Lip Of Shank Cutter Most recent HbA1c: 6.3%, 04/17/2025 Random Glucose- 95 mg/dL, Today Carbon Sequestration Plant Engineer Required: No Accompanied by: Sister Allergies dulaglutide (From Trulicity) Allergy (Intermediate, Verified 05/24/25 15:15) pruritus, swelling latex (LATEX) Allergy (Intermediate, Verified 05/24/25 15:15) Hives erythromycin base (ERYTHROMYCIN BASE) Allergy (Unknown, Verified 05/24/25 15:15) UNKNOWN Penicillins (PENICILLINS) Allergy (Unknown, Verified 05/24/25 15:15) UNKNOWN metformin Adverse Reaction (Intermediate, Uncoded 05/24/25 15:15) abdominal discomfort HPI Comments Details: This is a 54-year-old female with diabetes mellitus type 2 presenting for consult. Accompanied by sister who provides most of the history Med history: CVA, hypertension, hyperlipidemia, seizures Current medications: Ozempic 1mg weekly Previous medications: Tolerant but stopped pioglitazone 15mg daily. She was using Trulicity for few months and has noticed that there is some local swelling and itchiness when she has the injection. Metformin cause abdominal side effects when use. A1C today 6.3% drawn 04/17/25 one really early from 6.4% 02/22/25 from 6.8% from Reji 9.3%. She has a traditional glucometer, checking once daily consistently. Denies hypoglycemia. Reviewed glucometer and confirmed ROS CONSTITUTIONAL: Denies weight loss, fever and chills. HEENT: Denies changes in vision and hearing. RESPIRATORY: Denies SOB and cough. CV: Denies palpitations and CP GI: Denies abdominal pain, nausea, vomiting and diarrhea. : Denies dysuria and urinary frequency. MSK: Denies new myalgia and joint pain. SKIN: Denies rash and pruritus. NEUROLOGICAL: Denies headache PSYCHIATRIC: Denies recent changes in mood. PHYSICAL EXAM: GENERAL: Alert and oriented x 3. NAD EYES: EOMI. Anicteric. HENT: Moist mucous membranes. No scleral icterus. No cervical lymphadenopathy. LUNGS: Clear to auscultation bilaterally. CARDIOVASCULAR: RRR. ABDOMEN: Soft, non-tender +bs EXTREMITIES: No edema. Non-tender. SKIN: No rashes or lesions. Warm. NEUROLOGIC: Antalgic gait. No new neurologic changes PSYCHIATRIC: Cooperative. Appropriate mood and affect [facility] Medical History Microalbuminuria due to type 2 diabetes mellitus Mild aphasia CVA (cerebral vascular accident) Diabetes Seizures Elevated cholesterol Hypertension Ecchymosis Encounter to establish care Hx of cyst of breast Surgical History Hx of colonoscopy History of partial hysterectomy History of thyroid surgery Family History Mother Bone cancer Hypertension Diabetes Father Diabetes Hypertension Maternal Aunt Breast cancer, Onset Age: 49 Family/Other Mental health disorder Social History Household Members: Children Household Members Other:: Lives with family Housing: House Do you presently have visiting nurse or other home services: No Alcohol intake: never Patient Tobacco Use Status: Never used Tobacco e-Cigarette/Vaping Use: Never Used Second Hand Smoke Exposure: No service: No Current occupational status: unemployed Cognitive needs: Yes (cane ) Hearing needs: No Vision needs: Yes (glasses) Female Reproductive History Menstrual Age of Menarche: 12 Physical Exam Vital Signs: BMI result Body Mass Index 27.4 Assessment & Plan Assessment & Plan (1) Diabetes mellitus: Code(s): E11.9 - Type 2 diabetes mellitus without complications Category: Medical Qualifiers: Diabetes mellitus complication status: with hyperglycemia Diabetes mellitus longitudinal float operator insulin use: without fci use Diabetes mellitus type: type 2 Qualified Code(s): E11.65 - Type 2 diabetes mellitus with hyperglycemia Plan Diabetes continues to be controlled per her last A1C, she would have been due now She has follow up with her PCP in July so she can book here for end of October/November unless she needs to be seen sooner Treat hypoglycemia by rules of 15s Continue ozempic 1mg weekly. Weight has improved Coding Level of Care Code Est Pt Level 4 (65501) Diagnoses Type 2 diabetes mellitus with hyperglycemia, without long-term current use of insulin E11.65 Diabetes mellitus complication status: with hyperglycemia Diabetes mellitus fci insulin use: without longitudinal float operator use Diabetes mellitus type: type 2
[2025-05-24 15:06] VITALS: BP 100/60; PULSE 71; O2SAT 96; BMI 27.4
[2025-05-24 15:17] LABS: Glucose, Whole Blood 95 mg/dL (60-115)
--- OUTSIDE RECORDS SUMMARY | 2025-05-24 18:00 | XMS_ITS | Clinical Summary ---
Author Organization [facility] Address [address] [place] [address] Phone Care Team Providers Care Primary Substance Abuse Counselor Name Role Phone Stephanie García MD Primary [...] Encounters Date Type Department Care Team Description 05/24/2025 Telephone [facility] [place]rology [address] [facility], 8th Floor, [address] [place] [address] Unknown, [place], 05/24/2025 Ancillary Orders [facility] [address] [place] [address] Unknown, Unknown, 05/24/2025 Ancillary Orders [facility] [address] [place] [address] Unknown, Unknown, 05/24/2025 Ancillary Orders [facility] [address] [place] [address] Unknown, Unknown, 05/24/2025 Telephone [facility] Department of Neurology [address] [facility], 8th Floor, [address] [place] [address] Unknown, [place], 05/17/2025 Telephone [facility] Department of [place]rology [address] [facility], 8th Floor, [address] [place] [address] Unknown, Unknown, 05/15/2025 11:23 AM EDT - 05/15/2025 11:59 PM EDT Hospital Encounter [facility] [address] [place] [address] Prem Carrillo MD Discharge Disposition: Home or Self Care 05/15/2025 10:30 AM EDT Office Visit [facility] Neurology [address] [place] [address] [place] [address] Prem Carrillo MD Seizure as late effect of cerebrovascular accident (CVA) (Primary Dx); Hx of ischemic left MCA stroke; Aphasia as late effect of cerebrovascular accident; Spasticity as late effect of cerebrovascular accident (CVA); On antiepileptic therapy 05/15/2025 Transcribe Orders [facility] [address] [place] [address] Prem Carrillo MD Seizure as late effect of cerebrovascular accident (CVA) (Primary Dx); On antiepileptic therapy 04/28/2025 10:30 AM EDT Office Visit [facility] Neurology [address] [place] [address] [place] [address] Felicitas Coley PA-C Seizure as late effect of cerebrovascular accident (CVA) (Primary Dx); Hx of ischemic left MCA stroke; Aphasia as late effect of cerebrovascular accident; Spasticity as late effect of cerebrovascular accident (CVA); Tongue biting; Daytime sleepiness 04/26/2025 Telephone [facility] Neurology [address] [place] [address] [place] [address] Prem Carrillo MD 04/24/2025 Telephone [facility] Neurology [address] [place] [address] [place] [address] Racquel Costello [place] 03/27/2025 1:00 PM EDT Office Visit [facility] Neurology [address] [place] [address] [place] [address] Prem Carrillo MD Seizure as late effect [...] Info) Description 07/26/2025 9:00 AM EST Telemedicine [facility] Department of [place]rology [address] [place] [address], 8th Floor, [address] [place] [address] Dianna Klein MD, MSc [address] [place] [address] [email or web address] 09/18/2025 2:30 PM EST Office Visit [facility] Neurology [address] [place] [address] [place] [address] Prem Carrillo MD [address] [place] [address], [address] [place] [address] [email or web address] 11/13/2025 3:00 PM EDT Office Visit [facility] Neurology [address] [place] [address] [place] [address] Felicitas Coley PA-C [address] [place] [address], [address] [place] [address] [email or web address] Health Maintenance Due Date Last Done [...] 05/16/2019, Additional history exists COVID-19 VACCINE ( season) 2025 LIPID PANEL 05/13/2026 05/13/2021 Adult [...] Procedure Name Priority Date/Time Associated Diagnosis Comments LAMOTRIGINE LEVEL Routine 05/22/2025 2:4 0 PM EST Seizure as late effect of cerebrovascular accident (CVA) On antiepileptic therapy LEVETIRACETAM (KEPPRA) LEVEL Routine 05/22/2025 2:40 PM EST Seizure as late effect of cerebrovascular accident (CVA) On antiepileptic therapy BASIC METABOLIC PANEL (BMP) STAT 07/05/2021 12:31 PM EST from Last 3 Months or Most Recently Relevant to Health Maintenance Results * Levetiracetam Level (05/22/2025 2:40 PM EST) Levetiracetam 24.1 12.0 - 46.0 mcg/mL 05/24/2025 2:05 PM EST [facility] Comment:Limit of detection: 2 mcg/mL Blood Venipuncture / Unknown 05/22/2025 2:40 PM EST 05/22/2025 3:09 PM EST Narrative [facility] - 05/24/2025 2:05 PM EST This test was developed and its performance characteristics determined by [facility]. It has not been cleared or approved by the U.S. Food and Drug Administration. This laboratory is certified under the Clinical Laboratory Improvement Amendments of 1988 (CLIA-88) as qualified to perform high complexity clinical laboratory testing. Prem Carrillo MD LAB BLOOD BKR ORDERABLES Final R esult Performing Organization Address [facility] de Phone Number [address] [address] * LAMOTRIGINE LEVEL (05/22/2025 2:40 PM EST) Lamotrigine 10.2 4.0 - 18.0 mcg/mL 05/24/2025 2:05 PM EST [facility] Comment:Limit of detection: 2 mcg/mL Blood Venipuncture / Unknown 05/22/2025 2:40 PM EST 05/22/2025 3:09 PM EST [facility] - 05/24/2025 2:05 PM EST This test was developed and its performance characteristics determined by [facility]. It has not been cleared or approved by the U.S. Food and Drug Administration. This laboratory is certified under the Clinical Laboratory Improvement Amendments of 1988 (CLIA-88) as qualified to perform high complexity clinical laboratory testing. Prem Carrillo MD LAB BLOOD BKR ORDERABLES Final R esult Performing Organization Address [facility] Co de Phone Number [address] [address] * (ABNORMAL) Basic metabolic panel (07/05/2021 12:31 PM EST) SODIUM 135 133 - 146 mmol/L [facility] CHLORIDE 100 96 - 108 mmol/L [facility] POTASSIUM 4.1 3.3 - 5.1 mmol/L [facility] CO2 26 21 - 35 mmol/L [facility] BUN 11 6 - 19 mg/dL [facility] CREATININE 0.80 0.5 - 1.5 mg/dL [facility] GLUCOSE 158(H) 70 - 99 mg/dL [facility] CALCIUM 9.3 8.4 - 10.3 mg/dL [facility] EGFR 90 >59 mL/min/1.7 3m2 [facility] Comment:Estimated glomerular filtration rate calculated using the CKD-EPI refit equation. ANION GAP 13 10 - 20 mmol/L [facility] Blood 07/05/2021 12:3 1 PM EST 07/05/2021 12:45 PM EST Giuliana Krishnan PA-C LAB BLOOD BKR ORDERABLE S Final Result [facility] [address] [place] [address] from Last 3 Months or Most Recently Relevant to Health Maintenance Insurance MEDICARE PART A & B [facility] A & B [facility] MEDICARE PART A & B [facility] & B [facility] A & B [facility] A & B [facility] MEDIC[facility] PART A & B [facility] MEDICARE PART A & B [employer] MED[facility]ARE PART A & B [facility] Care Teams Primary Substance Abuse Counselor Relationship Specialty Start Date End Date Stephanie García MD [address] [place] [address] PCP - General Internal Medicine 04/28/25 Additional Source Comments The information contained in this document represents components of the legal health record. It is not the complete legal health record.[facility]
--- OUTSIDE RECORDS SUMMARY | 2025-05-24 18:00 | XMS_ITS | Clinical Summary ---
Author Organization [facility] Address [address] [facility] [address] [place] [address] Phone Care Team Providers Care Looseleaf Binder Coverer Name Role Phone Stephanie García MD Primary Care Provider [phone] Allergies Active Allergy Reactions Criticality Noted Date [...] no shunt 03/23/15- AC management transferred to [facility]. 05/29/16- warfarin stopped per Neuro. On asa 81 mg daily. Seizure 02/08/2015 Overview (10/07/2022): effexor and neurontin started at [facility] and were stopped due to [...] Office Visit [facility].CM[facility]na [address] [address] Gianna Mart ARNP [address] [address] Health Maintenance Due Date Last [...] 49 Years) Discontinued 05/06/2017 Insurance Medicare Medicaid [place] Medicare Medicaid [place] Care Teams Looseleaf Binder Coverer Relationship Specialty Start Date End Date Stephanie García MD [address] [place] [address] PCP - General Internal Medicine 01/05/24
--- OUTSIDE RECORDS SUMMARY | 2025-05-24 18:01 | XMS_ITS | Encounter Summary ---
Author Organization [facility] Address [address] [place] [address] Phone Care Team Providers Care Billiard Table Repairer Name Role Phone Stephanie García MD Primary Care Provid er Encounter Details Date Type Department Care Team (Late st Contact Info) Description 05/24/2025 Telephone [facility] [place] of [place]rology [address] [facility], 8th Floor, [address] [place] [address] Unknown, Unknown, Social History Tobacco Use Types Packs/Day Years [...] as of this encounter Progress Notes * Selina Lund - 05/24/2025 8:15 AM EST Called pt and left a voice message to call back to discuss imaging for the upcoming appt. Number provided. [email or web address] documented in this encounter Plan of Treatment Upcoming Encounters Date Type Department Care Team (Late st Contact Info) Description 07/26/2025 9:00 AM EST Telemedicine [facility] Department of Neurology [address] [place] [address], 8th Floor, [address] [place] [address] Dianna Klein MD, MSc [address] [place] [address] [email or web address] 09/18/2025 2:30 PM EST Office Visit [facility] Neurology [address] [place] [address] Prem Carrillo MD [address] [place] [address] [email or web address] 11/13/2025 3:00 PM EDT Office Visit [facility] Neurology [address] [place] [address] Felicitas Coley PA-C [address] [place] [address] [email or web address] documented as of this encounter Visit Diagnoses Not on filedocumented in this encounter Care Teams Billiard Table Repairer Relationship Specialty Start Date End Date Stephanie García MD [address] [place] [address] PCP - General Internal Medicine 04/28/25 documented as of this encounter Additional Source Comments The information contained in this document represents components of the legal health record. It is not the complete legal health record.[facility]
--- OUTSIDE RECORDS SUMMARY | 2025-05-24 18:01 | XMS_ITS | Encounter Summary ---
Author Organization [facility] Address [address] [place] [address] Phone Care Team Providers Care Silviculture Professor Name Role Phone Stephanie García MD Primary Care Provid er Encounter Details Date Type Department Care Team (Late st Contact Info) Description 05/24/2025 Ancillary Orders [facility] General Imaging [address] [place] [address] Unknown, Unknown, Social History Tobacco Use Types [...] Info) Description 07/26/2025 9:00 AM EST Telemedicine [facility] [place]rology [address] [facility], 8th Floor, [address] [place] [address] Dianna Klein MD, MSc [address] [place] [address] [email or web address] 09/18/2025 2:30 PM EST Office Visit [facility] Neurology [address] [place] [address] Prem Carrillo MD [address] [address] [email or web address] 11/13/2025 3:00 PM EDT Office Visit [facility] Neurology [address] [place] [address] Felicitas Coley PA-C [address] [place] [address] [email or web address] documented as of this encounter Results * [place] Abdomen Outside (No Interpretation) (01/26/2020 12:00 AM EDT) Narrative [facility] [place] INTERFACES - 05/24/2025 10:43 AM EST This study is for PACS storage only and not for interpretation. us Unknown Unknown IMG OUTSIDE IMAGING W/OUT INT ERPRETATION Final Result [facility] [place]FAC[place] documented in this encounter Visit Diagnoses Not on filedocumented in this encounter Care Teams Silviculture Professor Relationship Specialty Start Date End Date Stephanie García MD [address] [place] [address] PCP - General Internal Medicine 04/28/25 documented as of this encounter Additional Source Comments The information contained in this document represents components of the legal health record. It is not the complete legal health record.[facility]
--- OUTSIDE RECORDS SUMMARY | 2025-05-24 18:01 | XMS_ITS | Encounter Summary ---
Author Organization [facility] Address [address] [place] [address] Phone Care Team Providers Care Hobbies And Crafts Sales Representative Name Role Phone Stephanie García MD Primary Care Provid er Encounter Details Date Type Department Care Team (Late st Contact Info) Description 05/24/2025 Ancillary Orders [facility] General Imaging [address] [place] [address] Unknown, Unknown, Social History Tobacco Use Types [...] Info) Description 07/26/2025 9:00 AM EST Telemedicine [facility] Department of Neurology 55 [facility], 8th Floor, [address] [place] [address] Dianna Klein MD, MSc 55 [place] [address] [email or web address] 09/18/2025 2:30 PM EST Office Visit [facility] Neurology [address] [place] [address] Prem Carrillo MD [address] [address] [email or web address] 11/13/2025 3:00 PM EDT Office Visit [facility] Neurology [address] [place] [address] Felicitas Coley PA-C [address] [place] [address] [email or web address] documented as of this encounter Results * [place] Abdomen Outside (No Interpretation) (01/04/2020 12:00 AM EDT) Narrative [facility] IMG INTERFACES - 05/24/2025 10:43 AM EST This study is for PACS storage only and not for interpretation. us Unknown Unknown IMG OUTSIDE IMAGING W/OUT INT ERPRETATION Final Result [facility] IMG INTERFACES documented in this encounter Visit Diagnoses Not on filedocumented in this encounter Care Teams Hobbies And Crafts Sales Representative Relationship Specialty Start Date End Date Stephanie García MD [address] [place] [address] PCP - General Internal Medicine 04/28/25 documented as of this encounter Additional Source Comments The information contained in this document represents components of the legal health record. It is not the complete legal health record.[facility]
--- OUTSIDE RECORDS SUMMARY | 2025-05-24 18:01 | XMS_ITS | Encounter Summary ---
Author Organization [facility] Address [address] [place] [address] Phone Care Team Providers Care Other Spatial Scientist Name Role Phone Stephanie García MD Primary Care Provid er Encounter Details Date Type Department Care Team (Late st Contact Info) Description 05/24/2025 Telephone [facility] [place] of Neurology [address] [facility], 8th Floor, [address] [place] [address] Unknown, Unknown, Social History Tobacco Use Types [...] Progress Notes * Selina Lund - 05/24/2025 10:47 AM EST Uploaded imaging by power foil from [facility]. Images that were uploaded are x2 fluoroscopy images and a chest x-ray, all from 2019. Called [employer], direct #[phone] and left a voice message asking for the correct imaging that is needed for this upcoming appt. Afax had already been sent. Number provided. [email or web address] documented in this encounter Plan of Treatment Upcoming Encounters Date Type Department Care Team (Late st Contact Info) Description 07/26/2025 9:00 AM EST Telemedicine [facility] Department of Neurology [address] [place] [address], 8th Floor, [address] [place] [address] Dianna Klein MD, MSc [address] [place] [address] [email or web address] 09/18/2025 2:30 PM EST Office Visit [facility] Neurology [address] [place] [address] Prem Carrillo MD [address] [place] [address], [address] [place] [address] [email or web address] 11/13/2025 3:00 PM EDT Office Visit [facility] Neurology [address] [place] [address] Felicitas Coley PA-C [address] [place] [address], [address] [place] [address] [email or web address] documented as of this encounter Visit Diagnoses Not on filedocumented in this encounter Care Teams Other Spatial Scientist Relationship Specialty Start Date End Date Stephanie García MD 5 [place] [address] PCP - General Internal Medicine 04/28/25 documented as of this encounter Additional Source Comments The information contained in this document represents components of the legal health record. It is not the complete legal health record.[facility]
--- OUTSIDE RECORDS SUMMARY | 2025-05-24 18:01 | XMS_ITS | Encounter Summary ---
Author Organization [facility] Address [address] [place] [address] Phone Care Team Providers Care Laser Engraver Name Role Phone Stephanie García MD Primary Care Provid er Encounter Details Date Type Department Care Team (Late st Contact Info) Description 05/24/2025 Ancillary Orders [facility] General Imaging [address] [place] [address] Unknown, Unknown, Social History Tobacco Use Types [...] Info) Description 07/26/2025 9:00 AM EST Telemedicine [facility] [place] 55 [facility], 8th Floor, [address] [place] [address] Dianna Klein MD, MSc 55 [place] [address] [email or web address] 09/18/2025 2:30 PM EST Office Visit [facility] Neurology [address] [place] [address] Prem Carrillo MD [address] [address] [email or web address] 11/13/2025 3:00 PM EDT Office Visit [facility] Neurology 22 [place] [address] Felicitas Coley PA-C [address] [place] [address] [email or web address] documented as of this encounter Results * XR Chest Outside (No Interpretation) (01/17/2020 12:00 AM EDT) Narrative [facility] [place]G INTERFACES - 05/24/2025 10:43 AM EST This study is for PACS storage only and not for interpretation. us Unknown Unknown IMG OUTSIDE IMAGING W/OUT INT ERPRETATION Final Result [facility] [place]G [place]ES documented in this encounter Visit Diagnoses Not on filedocumented in this encounter Care Teams Laser Engraver Relationship Specialty Start Date End Date Stephanie García MD [address] [place] [address] PCP - General Internal Medicine 04/28/25 documented as of this encounter Additional Source Comments The information contained in this document represents components of the legal health record. It is not the complete legal health record.[facility]
--- OUTSIDE RECORDS SUMMARY | 2025-05-24 18:01 | XMS_ITS | Encounter Summary ---
Author Organization [facility] Address [address] [place] [address] Phone Care Team Providers Care Caul Fat Puller Name Role Phone Claudio Mott MD Primary Care Provider [phone] Estephania Padilla NP Primary Care Provider [phone] Stephanie García MD Primary Care Provid er Reason for Referral * MRI/CAT Scan - Closed Specialty Diagnoses / Procedures Referred By Shalom kessler Referred To Contact Radiology Diagnoses Blurred vision Nonintractable headache, unspecified chronicity pattern, unspecified headache type Procedures MRI Brain Claudio Mott MD Phone: tel: fax: [email or web address] Referral ID Status Reason Start Date Expiration Date Visits Re quested Visits Authorized [id number] Closed 04/09/2021 04/09/2022 1 1 Encounter Details Date Type Department Care Team (Latest Contact Info) Description 04/09/2021 Transcribe Orders Virtual Department [address] [place] [address] Claudio Mott MD [address] [place] [address], [address] [place], [place] [id number] [phone] ([email or web address] Blurred vision (Primary Dx); [...] Description 07/26/2025 9:00 AM EST Telemedicine [facility] [place] Department of Neurology [address] [place] [address], 8th Floor, [address] [place] [address] Dianna Klein MD, MSc [address] [place] [address] [email or web address] 09/18/2025 2:30 PM EST Office Visit [facility] Neurology [address] [place] [address] [place] [address] Prem Carrillo MD [address] [place] [address], [address] [place] [address] [email or web address] 11/13/2025 3:00 PM EDT Office Visit [facility] Neurology [address] [place] [address] [place] [address] Felicitas Coley PA-C [address] [place] [address], [address] [place] [address] [email or web address] documented as of this encounter Results * [...] right are similar to prior study. No eshfn-abezz-hssvw blood or fluid collection, mass, or mass [...] and diffusion-weighted imaging with ADC map, coronal M1GXECD and STIR, sagittal T1 sequences were obtained. [...] the right are similar toprior study. No ojkea-swbab-vynbw blood or fluid collection, mass, or masseffect [...] documented as of this encounter Care Teams Caul Fat Puller Relationship Specialty Start Date End Date Claudio Mott MD [address] [place] [address], [address] [place] [address] PCP - General Neurology 04/16/21 06/30/22 Estephania Padilla NP [address] [place] [address] [facility] [place] [address] PCP - General 07/01/22 04/27/25 Stephanie García MD [address] [place] [address] PCP - General Internal Medicine 04/28/25 documented as of this encounter Additional Source Comments The information contained in this document represents components of the legal health record. It is not the complete legal health record.[facility]
--- OUTSIDE RECORDS SUMMARY | 2025-05-24 18:01 | XMS_ITS | Clinical Summary ---
Author Organization [facility] Address [address] [place] [address] Care Team Providers Care Explosive Technician Name Role Phone Mick Vidal MD Primary Care Provider [phone] Surgical History Surgery Date Site/Laterality Comments OTHER [...] 2016 OTHER SURGICAL HISTORY 12/2016 N/A PROCEDURE: MT TOTAL ABDOMINAL HYSTERECT W/WO RMVL TUBE OVARY; COMMENT: Sites. Salpingectomy OTHER SURGICAL HISTORY Right PROCEDURE: MT PRTL THYROID LOBECTOMY UNI W/WO ISTHMUSECTOMY BREAST SURGERY 2019 Left PROCEDURE: MT UNLISTED PROCEDURE BREAST; COMMENT: fibroademona Medical History [...] Colorectal Cancer Screening: Colonoscopy 1972 Diabetes: Annual Foot Exam 1982 Diabetes: [...] 08/31/2019, Additional history exists Depression Screening 07/20/2024 Diabetes: Annual GFR (Glomerular Filtration Rate) 01/04/2025 01/05/2024 COVID-19 Vaccine ( season) 2025 Influenza Vaccine [...] Recently Relevant to Health Maintenance Care Teams Explosive Technician Relationship Specialty Start Date End Date Mick Vidal MD [address] [place] [address] PCP - General Internal Medicine 10/18/21
--- OUTSIDE RECORDS SUMMARY | 2025-05-24 18:01 | XMS_ITS | Encounter Summary ---
Author Organization [facility] Address [address] [place] [address] Phone Care Team Providers Care Hot Walker Name Role Phone Claudio Mott MD Primary Care Provider Estephania Padilla NP Primary Care Provider [phone] Stephanie García MD Primary Care Provid er Encounter Details Date Type Department Care Team (Late st Contact Info) Description 04/09/2021 Procedure Pass [facility], [address] [address] Social History Tobacco Use Types Packs/Day Years [...] Info) Description 07/26/2025 9:00 AM EST Telemedicine [facility] [place] [place] Department of Neurology [address] [place] [address], 8th Floor, [address] [place] [address] Dianna Klein MD, MSc [address] [place] [address] [email or web address] 09/18/2025 2:30 PM EST Office Visit [facility] Neurology [address] [place] [address] Prem Carrillo MD 22 [facility], 2nd [place] [address] [email or web address] 11/13/2025 3:00 PM EDT Office Visit [facility] Neurology [address] [place] [address] Felicitas Coley PA-C [address] [place] [address], 3rd [place] [address] [email or web address] documented as of this encounter Visit Diagnoses Not on filedocumented in this encounter Additional Health Concerns Infection Onset Date Last Indicated Resolved Time CoV-Exposed Comment:Positive COVID-19 06/09/2021 06/09/2021 06/09/2021 6:1 4 AM EST CoV-Risk 06/09/2021 06/09/2021 06/09/2021 6:14 AM EST COVID-19 06/09/2021 06/09/2021 06/30/2021 1:21 AM EST documented as of this encounter Care Teams Hot Walker Relationship Specialty Start Date End Date Claudio Mott MD [address] [place] [address], [address] [place] [address] [email or web address] PCP - General Neurology 04/16/21 06/30/22 Estephania Padilla NP [address] [place] [address] [place] [address] [place] [address] PCP - General 07/01/22 04/27/25 Stephanie García MD [address] [place] [address] PCP - General Internal Medicine 04/28/25 documented as of this encounter Additional Source Comments The information contained in this document represents components of the legal health record. It is not the complete legal health record.[facility]
== END 2025-05-24 15:33 | disposition home or self-care (01) ==
LOC: HO.ENCR 14:53
PROVIDERS: Visit Provider Internal Medicine
DX: E11.65 Type 2 diabetes mellitus with hyperglycemia (principal)

== ENCOUNTER → 2025-05-24 14:52 | Outpatient (BNVA) | payer MEDICARE, MEDICAID, SELFPAY | PROVIDERS: Visit Provider Internal Medicine | DX: E11.65 Type 2 diabetes mellitus with hyperglycemia (principal); Z79.84 Long term (current) use of oral hypoglycemic drugs; Z79.85 Long-term (current) use of injectable non-insulin antidiabetic drugs; I10 Essential (primary) hypertension; E78.5 Hyperlipidemia, unspecified | CPT/HCPCS: 82947; 99212 ==

== ENCOUNTER 2025-06-08 14:36 | Outpatient (AMB) | payer MEDICARE, MEDICAID, SELFPAY ==
--- NOTE | 2025-06-08 15:46 | A.OFFVIS_ITS ---
Vital Signs 06/08/25 15:47 Height 5 ft 6 in Weight 169 lb BMI 27.3 Intake Visit Reasons: fu Intake Note: Virginie is a 55 year old female who presents today for a follow up for her right foot and toe pain. At last appointment patient was to continue with AFO and was referred to PMR for a brace that spans past her knee. Orders were placed for X- Rays of the foot and ankle, which are in the chart, and a referral was placed to Physiatry. Patient reports everything is going well however she is still experiencing pain in her right hallux. She denies experiencing pain in her foot. 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 She received her x-rays. She also has an appointment scheduled with physiatry in June. Still experiencing right foot pain, mildly worse. The patient states she has seen another provider who has tried injections to her big toe which have not helped. Of note, the patient has an AFO brace she has used since 2014, and only use when she is wearing shoes. She also sees physical therapy. She is also concerned about a dark spot over her right big toenail. [facility] Medical History Microalbuminuria due to type 2 diabetes mellitus Mild aphasia CVA (cerebral vascular accident) Diabetes Seizures Elevated cholesterol Hypertension Ecchymosis Encounter to establish care Hx of cyst of breast Surgical History Hx of colonoscopy History of partial hysterectomy History of thyroid surgery Family History Mother Bone cancer Hypertension Diabetes Father Diabetes Hypertension Maternal Aunt Breast cancer, Onset Age: 49 Family/Other Mental health disorder Social History Household Members: Children Household Members Other:: Lives with family Housing: House Do you presently have visiting nurse or other home services: No Alcohol intake: never Patient Tobacco Use Status: Never used Tobacco e-Cigarette/Vaping Use: Never Used Second Hand Smoke Exposure: No service: No Current occupational status: unemployed Cognitive needs: Yes (cane ) Hearing needs: No Vision needs: Yes (glasses) Female Reproductive History Menstrual Age of Menarche: 12 Review of Systems Const All systems reviewed & are unremarkable except as noted in HPI and below Physical Exam Vital Signs: BMI result Body Mass Index 27.3 Extrem Other: *Bilateral Lower Extremity Focused Diabetic Foot Exam Vascular: DP/PT 1/4, CFT<3s to digits, TG warm to cool, no pedal edema, pedal hair absent Derm: Mostly resolved subungual hematoma right hallux. Neuro: Diminished proprioception and gross protective sensation to the right foot. Msk: Moderate tenderness on palpation of the plantar aspect of the right hallux IPJ. Right lower extremity complete dorsiflexion weakness. On weight-bearing, right hip and knee are flexed, heel does not touch the ground, loading mostly on the right foot medial column and hallux. Gait: right dropfoot Footwear Assessment: Shoes and AFO brace inspected. mild increased wear to the sub 1, 2nd, and 3rd. Results Reviewed Results Reviewed: X-ray Read: 05/23/2025 X-ray right foot 3 views (AP, MO, Lateral) reviewed which shows bipartite tibial sesamoid. No other signs of fractures, dislocations, or gross abnormalities. Bone density is within normal limits. Normal anatomy. No evidence of swelling, foreign body, or calcifications. I personally reviewed the imaging and my findings are listed above. X-ray Read: 05/23/2025 X-ray right ankle 3 views (AP, Mortise, Lateral) reviewed which shows no fractures, dislocations, osteochondral defects, or gross abnormalities. Anatomic alignment of the tibiotalar joint. Bone density is within normal limits. No evidence of swelling, foreign body, or calcifications. I personally reviewed the imaging and my findings are listed above. Assessment & Plan Assessment & Plan (1) Foot drop, right: Code(s): M21.371 - Foot drop, right foot Category: Medical Plan: * Continue AFO. We will plan for increased padding to the right hallux/1st ray to aid in dorsiflexion to the digit and transfer loading to the 1st Metatarsal-phalangeal joint instead of the IPJ. * The patient is scheduled to see PMR for a brace that spans past her knee, potentially a KAFO or HKAFO. (2) Sesamoiditis of foot: Code(s): M25.879 - Other specified joint disorders, unspecified ankle and foot Category: Medical Qualifiers: Laterality: right Qualified Code(s): M25.871 - Other specified joint disorders, right ankle and foot Plan: * Reviewed bilateral foot x-rays * Offered cortisone injection to the right 1st Metatarsal-phalangeal joint which the patient refused at this time. * Applied dancer's pad * Follow up in 1 month. May require MRI to evaluate for sesamoid fracture versus sesamoiditis. Coding Level of Care Code Est Pt Level 3 (97456) Diagnoses Foot drop, right M21.371 Sesamoiditis of right foot M25.871 Laterality: right Time Spent (min) 25
[2025-06-08 15:47] VITALS: BMI 27.3
--- OUTSIDE RECORDS SUMMARY | 2025-06-08 19:59 | XMS_ITS | Encounter Summary ---
Author Organization [facility] Address [address] [place] [address] Phone Care Team Providers Care Sanitary Engineer Name Role Phone Stephanie García MD Primary Care Provid er Encounter Details Date Type Department Care Team (Late st Contact Info) Description 06/04/2025 Telephone [facility] Neurology [address] [place] [address] Prem Carrillo MD 22 [facility], 2nd [place] [address] [email or web address] Social History Tobacco Use Types Packs/Day Years [...] as of this encounter Progress Notes * Vicky Reid MA - 06/06/2025 11:16 AM EST T/C to Gabriella, relayed all information. Gabriella had no questions. * Prem Carrillo MD - 06/04/2025 8:41 PM EST Please let Virginie's sister Gabriella know that I reviewed her recent EEG and it looks similar to the prior EEGs - there is slowing in the left fronto-temporal region which is a result of scar tissue in the area of her stroke. This current EEG looks similar to her previous EEGs. No seizures occurred. documented in this encounter Plan of Treatment Upcoming Encounters Date Type Department Care Team (Late st Contact Info) Description 07/26/2025 9:00 AM EST Telemedicine [facility] Department of Neurology [address] [place] [address], 8th Floor, [address] [place] [address] Dianna Klein MD, MSc [address] [place] [address] [email or web address] 09/18/2025 2:30 PM EST Office Visit [facility] Neurology [address] [place] [address] rPem Carrillo MD [address] [place] [address], [address] [place] [address] [email or web address] documented as of this encounter Visit Diagnoses Not on filedocumented in this encounter Care Teams Sanitary Engineer Relationship Specialty Start Date End Date Stephanie García MD [address] [place] [address] PCP - General Internal Medicine 04/28/25 documented as of this encounter Additional Source Comments The information contained in this document represents components of the legal health record. It is not the complete legal health record.[facility]
--- OUTSIDE RECORDS SUMMARY | 2025-06-08 19:59 | XMS_ITS | Encounter Summary ---
Author Organization [facility] Address [address] [place] [address] Phone Care Team Providers Care Procedure Rn Name Role Phone Claudio Mott MD Primary Care Provider Estephania Padilla NP Primary Care Provider [phone] Stephanie García MD Primary Care Provid er Encounter Details Date Type Department Care Team (Late st Contact Info) Description 04/09/2021 Procedure Pass [facility], [address] [address] Social History Tobacco Use Types Packs/Day Years [...] Info) Description 07/26/2025 9:00 AM EST Telemedicine [facility] Department of Neurology [address] [place] [address], 8th Floor, [address] [place] [address] Dianna Klein MD, MSc [address] [place] [address] [email or web address] 09/18/2025 2:30 PM EST Office Visit [facility] Neurology [address] [place] [address] Prem Carrillo MD [address] [facility], 2nd [place] [address] documented as of this encounter Visit Diagnoses Not on filedocumented in this encounter Additional Health Concerns Infection Onset Date Last Indicated Resolved Time CoV-Exposed Comment:Positive COVID-19 06/09/2021 06/09/2021 06/09/2021 6:1 4 AM EST CoV-Risk 06/09/2021 06/09/2021 06/09/2021 6:14 AM EST COVID-19 06/09/2021 06/09/2021 06/30/2021 1:21 AM EST documented as of this encounter Care Teams Procedure Rn Relationship Specialty Start Date End Date Claudio Mott MD [address] [place], [place] [address] [place] [address] PCP - General Neurology 04/16/21 06/30/22 Estephania Padilla NP [address] [place] [address] PCP - General 07/01/22 04/27/25 Stephanie García MD [address] [place] [address] PCP - General Internal Medicine 04/28/25 documented as of this encounter Additional Source Comments The information contained in this document represents components of the legal health record. It is not the complete legal health record.[facility]
--- OUTSIDE RECORDS SUMMARY | 2025-06-08 19:59 | XMS_ITS | Clinical Summary ---
Author Organization [facility] it Address [address] [place] [address] Care Team Providers Care Community Placement Worker Name Role Phone Mick Vidal MD Primary Care Provider [phone] Surgical History Surgery Date Site/Laterality Comments OTHER [...] 2016 OTHER SURGICAL HISTORY 12/2016 N/A PROCEDURE: [place] TOTAL ABDOMINAL HYSTERECT W/WO RMVL TUBE OVARY; COMMENT: Sites. Salpingectomy OTHER SURGICAL HISTORY Right PROCEDURE: [place] PRTL THYROID LOBECTOMY UNI W/WO ISTHMUSECTOMY BREAST SURGERY 2019 Left PROCEDURE: [place] UNLISTED PROCEDURE BREAST; COMMENT: [email or web address] Medical History [...] Recently Relevant to Health Maintenance Care Teams Community Placement Worker Relationship Specialty Start Date End Date Mick Vidal MD [address] [place] [address] PCP - General Internal Medicine 10/18/21
--- OUTSIDE RECORDS SUMMARY | 2025-06-08 19:59 | XMS_ITS | Encounter Summary ---
Author Organization [facility] Address [address] [place] [address] Phone Care Team Providers Care House Decorator Name Role Phone Stephanie García MD Primary Care Provid er Encounter Details Date Type Department Care Team (Late st Contact Info) Description 06/07/2025 Telephone [facility] [place] Department of Neurology [address] [facility], 8th Floor, [address] [place] [address] Unknown, Unknown, Social History Tobacco Use Types [...] encounter Progress Notes * Selina Lund - 06/07/2025 7:59 AM EST Called pt and left a message to call back regarding imaging for the upcoming appt. I did suggest that perhaps her PCP can schedule a MRI brain to be done prior to her appt. Number provided. [email or web address] documented in this encounter Plan of Treatment Upcoming Encounters Date Type Department Care Team (Late st Contact Info) Description 07/26/2025 9:00 AM EST Telemedicine [facility] [place] Department of Neurology [address] [place] [address], 8th Floor, [address] [place] [address] Dianna Klein MD, MSc [address] [place] [address] [email or web address] 09/18/2025 2:30 PM EST Office Visit [facility] Neurology [address] [place] [address] Prem Carrillo MD [address] [place] [address], 2[address] [place] [address] [email or web address] documented as of this encounter Visit Diagnoses Not on filedocumented in this encounter Care Teams House Decorator Relationship Specialty Start Date End Date Stephanie García MD [address] [place] [address] PCP - General Internal Medicine 04/28/25 documented as of this encounter Additional Source Comments The information contained in this document represents components of the legal health record. It is not the complete legal health record.[facility]
--- OUTSIDE RECORDS SUMMARY | 2025-06-08 19:59 | XMS_ITS | Clinical Summary ---
Author Organization [facility] Address [address] [facility] [address] [place] [address] Phone Care Team Providers Care Coat Examiner Name Role Phone Stephanie García MD Primary Care Provider [phone] Allergies Active Allergy Reactions Criticality Noted Date [...] no shunt 03/23/15- AC management transferred to [facility]. 05/29/16- warfarin stopped per Neuro. On asa 81 mg daily. Seizure 02/08/2015 Overview (10/07/2022): effexor and neurontin started at [facility] and were stopped due to ? [...] Office Visit [facility] [address] [address] Gianna Mart ARNP [address] [address] Health Maintenance Due Date Last [...] 49 Years) Discontinued 05/06/2017 Insurance Medicare [place] Care Teams Coat Examiner Relationship Specialty Start Date End Date Stephanie García MD [address] [place] [address] PCP - General Internal Medicine 01/05/24
--- OUTSIDE RECORDS SUMMARY | 2025-06-08 19:59 | XMS_ITS | Clinical Summary ---
Author Organization [facility] Address [address] [place] [address] Phone Care Team Providers Care Animation Artist Name Role Phone Stephanie García MD Primary [...] 1 mg (0.75 ml) subcutaneously weekly 01/05/20 Active LORazepam (ATIVAN) 0.5 MG tabletIndications: Seizure [...] morning. 90 tablet 3 05/19/20 25 Active levETIRAcetam (KEPPRA) 1000 MG IMMEDIATE release tabletIndications: Seizure as late effect of cerebrovascular accident (CVA) TAKE 1/2 TABLET BY MOUTH EVERY MORNING AND TAKE 1 TABLET EVERY EVENING 135 tablet 5 10/25/19 25 2024 Disconti alek(Mereditho quintin) Active Problems No known active problems Encounters Date Type Department Care Team Description 06/07/2025 Orders Only [facility] Neurology [address] [place] [address] [place] [address] Stephanie García MD 06/07/2025 Telephone [facility] Department of Neurology [address] [facility], 8th Floor, [address] [place] [address] Unknown, Unknown, 06/04/2025 Telephone [facility] Neurology [address] [place] [address] [place] [address] Prem Carrillo MD 05/31/2025 12:37 PM EST - 05/31/2025 11:59 PM EST Hospital Encounter [facility] [address] [place] [address] Prem Carrillo MD Discharge Disposition: Home or Self Care 05/31/2025 Telephone [facility] Department of Neurology [address] [facility], 8th Floor, [address] [place] [address] Unknown, Unknown, 05/25/2025 Telephone [facility] Department of Neurology [address] [facility], 8th [facility], [address] [place] [address] Unknown, MD Gilbert 05/24/2025 Telephone [facility] Department of Neurology [address] [facility], [address]th [facility], [address] [place] [address] Unknown, Unknown, 05/24/2025 Ancillary Orders [facility] [address] [place] [address] Unknown, Unknown, 05/24/2025 Ancillary Orders [facility] [address] [place] [address] Unknown, Unknown, 05/24/2025 Ancillary Orders [facility] [address] [place] [address] Unknown, Unknown, 05/24/2025 Telephone [facility] Department of Neurology [address] [facility], 8th [facility], [address] [place] [address] Unknown, Unknown, 05/17/2025 Telephone [facility] Department of Neurology [address] [facility], [address] [facility], [address] [place] [address] Unknown, Unknown, 05/15/2025 11:23 AM EDT - 05/15/2025 11:59 PM EDT Hospital Encounter [facility] [address] [place] [address] Prem Carrillo MD Discharge Disposition: Home or Self Care 05/15/2025 10:30 AM EDT Office Visit [facility] Neurology [address] [place] [address] [place] [address] Prem Carrillo MD Seizure as late effect of cerebrovascular accident (CVA) (Primary Dx); Hx of ischemic left MCA stroke; Aphasia as late effect of cerebrovascular accident; Spasticity as late effect of cerebrovascular accident (CVA); On antiepileptic therapy 05/15/2025 Transcribe Orders [facility] [address] [place] [address] Prem Carrillo MD Seizure as late effect of cerebrovascular accident (CVA) (Primary Dx); On antiepileptic therapy 04/28/2025 10:30 AM EDT Office Visit [facility] Neurology [address] [place] [address] [place] [address] Felicitas Coley PA-C Seizure as late effect of cerebrovascular accident (CVA) (Primary Dx); Hx of ischemic left MCA stroke; Aphasia as late effect of cerebrovascular accident; Spasticity as late effect of cerebrovascular accident (CVA); Tongue biting; Daytime sleepiness 04/26/2025 Telephone [facility] Neurology [address] [place] [address] [place] [address] Prem Carrillo MD 04/24/2025 Telephone [facility] Neurology [address] [place] [address] [place] [address] Racquel Costello [place] 03/27/2025 1:00 PM EDT Office Visit [facility] Neurology [address] [place] [address] [place] [address] Prem Carrillo MD Seizure as late effect [...] Info) Description 07/26/2025 9:00 AM EST Telemedicine [facility] Department of Neurology [address] [place] [address], 8th Floor, [address] [place] [address] Dianna Klein MD, MSc [address] [place] [address] [email or web address] 09/18/2025 2:30 PM EST Office Visit [facility] Neurology [address] [place] [address] Prem Carrillo MD [address] [place] [address], 2nd [place] [address] [email or web address] Health Maintenance Due Date Last Done Comments [...] 05/25/2020, 05/16/2019, Additional history exists COVID-19 VACCINE (2024- season) 2025 LIPID PANEL 05/13/2026 05/13/2021 Adult [...] Procedure Name Priority Date/Time Associated Diagnosis Comments EEG Routine 06/01/2025 2:30 PM EST Seizure as late effect of cerebrovascular accident (CVA) Hx of ischemic left MCA stroke Aphasia as late effect of cerebrovascular accident Spasticity as late effect of cerebrovascular accident (CVA) LAMOTRIGINE LEVEL Routine 05/22/2025 2:4 0 PM EST Seizure as late effect of cerebrovascular accident (CVA) On antiepileptic therapy LEVETIRACETAM (KEPPRA) LEVEL Routine 05/22/2025 2:40 PM EST Seizure as late effect of cerebrovascular accident (CVA) On antiepileptic therapy OUTSIDE MR IMAGING REPORT ONLY Routine 04/12/2025 11:37 AM EDT BASIC METABOLIC PANEL (BMP) STAT 07/05/2021 12:31 PM EST from Last 3 Months or Most Recently Relevant to Health Maintenance Results * EEG (06/01/2025 2:30 PM EST) Anatomical Region Laterality Modality EEG Impressions 06/04/2025 8:41 PM EST This 24 hour digitally recorded unattended ambulatory EEG, obtained with the patient awake and in all stages of sleep is abnormal due to the presence of slowing in the left frontotemporal region. This indicates an underlying structural abnormality from her prior stroke and appears similar to her previous EEGs, most recently from 10/19/24. No epileptiform activity or seizures occurred. Prem Carrillo MD [facility] Neurology Date: 06/04/25 Narrative 06/04/2025 8:41 PM EST [facility]EEG[facility] INTRODUCTION: The patient is a 55 year old woman with prior L MCA stroke referred for a question of seizures. MEDICATIONS: keppra, lamictal CONDITION OF RECORDIN hour digitally recorded unattended ambulatory EEG with the patient awake and in all stages of sleep, reviewed with longitudinal and coronal bipolar montages, with all electrodes applied in accordance with the International 10-20 System. A single channel EKG lead was recorded as well to help identify artifact. The recording started on 05/31/25 at 13:35:25 and ended on 06/01/25 at 14:05:39 The entire record was reviewed. There were no diary entries and the patient's family reported that there were no symptoms/spells. SPECIAL PROCEDURES: None. EEG DESCRIPTION: Abnormality #1: There was occasional slowing in the left frontotemporal region, similar to what was seen in the prior EEG from 10/19/24. No epileptic discharges were seen. No seizures occurred. Cerebral electrical activity with the patient awake was characterized by a well organized background with a 9-10 Hz posterior dominant reactive alpha rhythm. Lower voltage frontal maximum beta activity was seen. Drowsiness was characterized by an increase in slow eye movements and a fragmentation of the alpha rhythm. Stage II sleep was recorded during which time synchronous and symmetric sleep spindles, vertex waves and K complexes were seen. Stage III sleep was seen with the expected increase in delta activity. Photic stimulation was not performed. Hyperventilation was not performed. us Prem Carrillo MD NEUROLOGY ORDERABLES Final Resul t * Levetiracetam Level (05/22/2025 2:40 PM EST) Levetiracetam 24.1 12.0 - 46.0 mcg/mL 05/24/2025 2:05 PM EST [facility] Comment:Limit of detection: 2 mcg/mL Blood Venipuncture / Unknown 05/22/2025 2:40 PM EST 05/22/2025 3:09 PM EST Narrative [facility] - 05/24/2025 2:05 PM EST This test was developed and its performance characteristics determined by [facility] Main Lab. It has not been cleared or approved by the U.S. Food and Drug Administration. This laboratory is certified under the Clinical Laboratory Improvement Amendments of 1988 (CLIA-88) as qualified to perform high complexity clinical laboratory testing. Prem Carrillo MD LAB BLOOD BKR ORDERABLES Final R esult Performing Organization Address [facility] de Phone Number [address] [address] * LAMOTRIGINE LEVEL (05/22/2025 2:40 PM EST) Lamotrigine 10.2 4.0 - 18.0 mcg/mL 05/24/2025 2:05 PM EST [facility] Comment:Limit of detection: 2 mcg/mL Blood Venipuncture / Unknown 05/22/2025 2:40 PM EST 05/22/2025 3:09 PM EST Narrative [facility] - 05/24/2025 2:05 PM EST This test was developed and its performance characteristics determined by [facility] Main Lab. It has not been cleared or approved by the U.S. Food and Drug Administration. This laboratory is certified under the Clinical Laboratory Improvement Amendments of 1988 (CLIA-88) as qualified to perform high complexity clinical laboratory testing. Prem Carrillo MD LAB BLOOD BKR ORDERABLES Final R esult Performing Organization Address [facility] Co de Phone Number [address] [address] * Outside MR Imaging Report Only (04/12/2025 11:37 AM EDT) us Stephanie Phipps MD IMG MR Daja duarte Result * (ABNORMAL) Basic metabolic panel (07/05/2021 12:31 PM EST) SODIUM 135 133 - 146 mmol/L [facility] CHLORIDE 100 96 - 108 mmol/L [facility] POTASSIUM 4.1 3.3 - 5.1 mmol/L [facility] CO2 26 21 - 35 mmol/L [facility] BUN 11 6 - 19 mg/dL [facility] CREATININE 0.80 0.5 - 1.5 mg/dL [facility] GLUCOSE 158(H) 70 - 99 mg/dL [facility] CALCIUM 9.3 8.4 - 10.3 mg/dL [facility] EGFR 90 >59 mL/min/1.7 3m2 [facility] Comment:Estimated glomerular filtration rate calculated using the CKD-EPI refit equation. ANION GAP 13 10 - 20 mmol/L [facility] Blood 07/05/2021 12:3 1 PM EST 07/05/2021 12:45 PM EST us Giuliana Krishnan PA-C LAB BLOOD BKR ORDERABLE S Final Result [facility] [address] [place] [address] from Last 3 Months or Most Recently Relevant to Health Maintenance Insurance [place]IC[place] PART [place] MEDICARE PART A & B HEALTH MEDICARE PART A & B MEDICARE PART A & B Member Subscriber Plan / Payer (Ef fective 2017-Present) Name:Virginie [place] Member ID:[id number] Relation to Subscriber:Self Name:Virginie [place] Subscriber ID:[id number] Payer ID:[id number] Group ID:Not on file Type:Medicare Address: [email or web address] [address] & B MEDICARE PART A & B Member Subscriber Plan / Payer (Ef fective 2017-Present) Name:Virginie [place] Member ID:[id number] Relation to Subscriber:Self Name:Virginie [place] Subscriber ID:[id number] Payer ID:[id number] Group ID:Not on file Type:Medicare Address: [email or web address] [address] Care Teams Animation Artist Relationship Specialty Start Date End Date Stephanie García MD [address] [place] [address] PCP - General Internal Medicine 04/28/25 Additional Source Comments The information contained in this document represents components of the legal health record. It is not the complete legal health record.[facility]
--- OUTSIDE RECORDS SUMMARY | 2025-06-08 19:59 | XMS_ITS | Encounter Summary ---
Author Organization [facility] Address [address] [place] [address] Phone Care Team Providers Care Mail Carrier And Clerk Name Role Phone Claudio Mott MD Primary Care Provider [phone] Estephania Padilla NP Primary Care Provider Stephanie García MD Primary Care Provid er Reason for Referral * MRI/CAT Scan - Closed Specialty Diagnoses / Procedures Referred By Shalom kessler Referred To Contact Radiology Diagnoses Blurred vision Nonintractable headache, unspecified chronicity pattern, unspecified headache type Procedures MRI Brain Claudio Mott MD Phone: tel: fax: mailto:[email or web address] Referral ID Status Reason Start Date Expiration Date Visits Re quested Visits Authorized [id number] Closed 04/09/2021 04/09/2022 1 1 Encounter Details Date Type Department Care Team (Latest Contact Info) Description 04/09/2021 Transcribe Orders Virtual Department [address] [place] [address] Claudio Mott MD [address] [place] [address], [address] [place], [place] [phone] [email or web address] Blurred vision (Primary Dx); Nonintractable headache, [...] Info) Description 07/26/2025 9:00 AM EST Telemedicine [facility] Department of Neurology [address] [place] [address], 8th Floor, [address] [place] [address] Dianna Klein MD, MSc [address] [place] [address] [email or web address] 09/18/2025 2:30 PM EST Office Visit [facility] Neurology [address] [place] [address] Prem Carrillo MD [address] [place] [address], 2nd [place] [address] [email or web address] documented as of this encounter Results * [...] right are similar to prior study. No [id number]-[id number] blood or fluid collection, mass, or mass [...] and diffusion-weighted imaging with ADC map, coronal D4YCCOC and STIR, sagittal T1 sequences were obtained. [...] the right are similar toprior study. No auyua-fhpmv-vgnug blood or fluid collection, mass, or masseffect [...] documented as of this encounter Care Teams Mail Carrier And Clerk Relationship Specialty Start Date End Date Claudio Mott MD [address] [place] [address], [address] [place] [address] [email or web address] PCP - General Neurology 04/16/21 06/30/22 Estephania Padilla NP [address] [place] [address] [place] [address] PCP - General 07/01/22 04/27/25 Stephanie García MD NPI: [id number] [place] [address] PCP - General Internal Medicine 04/28/25 documented as of this encounter Additional Source Comments The information contained in this document represents components of the legal health record. It is not the complete legal health record.[facility]
--- OUTSIDE RECORDS SUMMARY | 2025-06-08 19:59 | XMS_ITS | Encounter Summary ---
Author Organization [facility] Address [address] [place] [address] Phone Care Team Providers Care Freight Engineer Name Role Phone Stephanie García MD Primary Care Provid er Reason for Referral * MRI/CAT Scan - Closed Specialty Diagnoses / Procedures Referred By Shalom kessler Referred To Contact Radiology Procedures Outside MR Imaging Report Only Stephanie García MD [address] [place] [address] Phone: tel: fax: Referral ID Status Reason Start Date Expiration Date Visits Re quested Visits Authorized [id number] Closed 06/07/2025 1 1 Encounter Details Date Type Department Care Team (Late st Contact Info) Description 06/07/2025 Orders Only [facility] Neurology [address] [place] [address] Stephanie García MD [address] [place], [place] [phone] Social History Tobacco Use Types Packs/Day Years [...] Info) Description 07/26/2025 9:00 AM EST Telemedicine [facility] Department of Neurology [address] [place] [address], 8th Floor, [address] [place] [address] Dianna Klein MD, MSc [address] [place] [id number] [email or web address] 09/18/2025 2:30 PM EST Office Visit [facility] Neurology [address] [place] [address] Prem Carrillo MD [address] [place] [address], [address] [place] [address] [email or web address] documented as of this encounter Procedures Procedure Name Priority Date/Time Associated Diagnosis Comments OUTSIDE MR IMAGING REPORT ONLY Routine 04/12/2025 11:37 AM EDT documented in this encounter Results * Outside MR Imaging Report Only (04/12/2025 11:37 AM EDT) Stephanie Phipps MD IMG MR [place] l Result documented in this encounter Visit Diagnoses Not on filedocumented in this encounter Care Teams Freight Engineer Relationship Specialty Start Date End Date Stephanie García MD [address] [place] [address] PCP - General Internal Medicine 04/28/25 documented as of this encounter Additional Source Comments The information contained in this document represents components of the legal health record. It is not the complete legal health record.[facility]
== END 2025-06-08 15:16 | disposition home or self-care (01) ==
LOC: HO.HPODS 14:37
PROVIDERS: PCP Internal Medicine; Visit Provider Student in an Organized Health Care Education/Training Program
DX: M21.371 Foot drop, right foot (principal); M25.871 Other specified joint disorders, right ankle and foot
CPT/HCPCS: 99213

== ENCOUNTER → 2025-06-08 14:36 | Outpatient (BNVA) | payer MEDICARE, MEDICAID, SELFPAY | PROVIDERS: PCP Internal Medicine; Visit Provider Student in an Organized Health Care Education/Training Program | DX: M21.371 Foot drop, right foot (principal); M25.871 Other specified joint disorders, right ankle and foot; E11.9 Type 2 diabetes mellitus without complications | CPT/HCPCS: 99212 ==

== ENCOUNTER 2025-06-29 14:34 | Outpatient (AMB) | payer MEDICARE, MEDICAID, SELFPAY ==
[2025-06-29 14:45] VITALS: BMI 27.3
--- NOTE | 2025-06-29 14:45 | A.PHYSOV ---
Vital Signs 06/29/25 14:45 Height 5 ft 6 in Weight 169 lb BMI 27.3 Intake Visit Re[place] [facility] [place] Rt upper & lower ext weakness Intake Note: Patient is a 55 year old female in office today as new patient for Right upper and lower extremity weakness. Began after a stoke in 2014. Patient has had physical therapy Allergies dulaglutide (From Trulicity) Allergy (Intermediate, Verified 06/29/25 14:44) pruritus, swelling latex (LATEX) Allergy (Intermediate, Verified 06/29/25 14:44) Hives erythromycin base (ERYTHROMYCIN BASE) Allergy (Unknown, Verified 06/29/25 14:44) UNKNOWN Penicillins (PENICILLINS) Allergy (Unknown, Verified 06/29/25 14:44) UNKNOWN metformin Adverse Reaction (Intermediate, Uncoded 05/24/25 15:15) abdominal discomfort HPI Comments Details: History of Present Illness The patient is a 55-year-old female who presents for evaluation for a new brace. She has a history of a left-sided stroke in 2014, which resulted in expressive aphasia and right-sided weakness. Due to a resultant foot drop, she ambulates with a cane and utilizes an ankle-foot orthosis (AFO) that was fabricated by a prosthetics and orthotics specialist. She was referred by her stencil inspector for consideration of a hvow-sxpxp-xxaw orthosis (KAFO) due to concerns about her leg weakening and gait changes over time. The patient reports having a blister over her right great toe sometime ago. She has a history of a foot blister caused by her shoe rubbing, which has since resolved. She has tried shoe inserts but found them uncomfortable. She does not wear her brace or shoes in the house, which has led to occasional falls from catching her foot. Past medical history is significant for diabetes mellitus. The etiology of her stroke was a clot, but the underlying cause remains unknown. She has a history of dysphagia but has since undergone swallowing tests and is on a regular diet. Physical therapy in the past was reportedly not very helpful. Patient presented accompanied by her sister who was very helpful in history taking and navigating her care. [facility] Medical History (Updated 06/29/25 @ 16:52 by Mark Noriega DO) Right hemiplegia Microalbuminuria due to type 2 diabetes mellitus Mild aphasia CVA (cerebral vascular accident) Diabetes Seizures Elevated cholesterol Hypertension Ecchymosis Encounter to establish care Hx of cyst of breast Surgical History Hx of colonoscopy History of partial hysterectomy History of thyroid surgery Family History Mother Bone cancer Hypertension Diabetes Father Diabetes Hypertension Maternal Aunt Breast cancer, Onset Age: 49 Family/Other Mental health disorder Social History Household Members: Children Household Members Other:: Lives with family Housing: House Do you presently have visiting nurse or other home services: No Alcohol intake: never Patient Tobacco Use Status: Never used Tobacco e-Cigarette/Vaping Use: Never Used Second Hand Smoke Exposure: No service: No Current occupational status: unemployed Cognitive needs: Yes (cane ) Hearing needs: No Vision needs: Yes (glasses) Female Reproductive History Menstrual Age of Menarche: 12 Review of Systems Narrative Review of Systems - General: Reports being comfortable with her current brace. - Neurological: Reports a history of stroke with residual foot drop and expressive aphasia. - Musculoskeletal: Reports her legs sometimes get weak. - Integumentary: Reports a history of a foot blister from rubbing, but denies any current skin breakdown. - HEENT: Reports a history of swallowing problems but is now on a regular diet. Physical Exam Exam Exam: Physical Exam - Gait: Patient ambulates with a cane and an ankle-foot orthosis (AFO) and is able to clear the ground when walking. - Neurological: Not spastic. - Musculoskeletal/Extremities: Toes are easily mobile and not contracted. - Integumentary: Skin of the feet is noted to be in good condition without evidence of breakdown. Vital Signs: BMI result Body Mass Index 27.3 Assessment & Plan Assessment & Plan (1) Right hemiplegia: Code(s): G81.91 - Hemiplegia, unspecified affecting right dominant side Category: Medical (2) History of stroke: Comment: 11/2014 Code(s): Z86.73 - Personal history of transient ischemic attack (TIA), and cerebral infarction without residual deficits Category: Medical (3) Foot drop, right: Code(s): M21.371 - Foot drop, right foot Category: Medical Plan Plan Patient was informed and verbally consented to the use of an ambient scribe for clinic note documentation during this visit. 1. Orthotic Device Management The patient was referred by her stencil inspector for evaluation for a pzvh-avftj-biyi orthosis (KAFO). On assessment, her current ankle-foot orthosis (AFO) functions well, allowing her to ambulate with a cane, preventing foot drag, and reducing fall risk. A KAFO is not indicated, as it is for individuals with more profound weakness and would unnecessarily restrict her knee flexion, potentially accelerating muscle deconditioning. The plan is to continue with the current AFO, as no changes are recommended. 2. Diabetes Mellitus With Foot Complications The patient has diabetes and a history of a foot blister, putting her at risk for skin complications. She reports often going barefoot at home. Patient was educated on the importance of proper foot care, including ensuring socks are wrinkle-free to prevent ulcers. She was strongly advised to wear supportive shoes, such as high-top sneakers, in the house to improve stability and protect her feet. She will continue to follow up with her stencil inspector for diabetic foot exams. 3. Fall Risk The patient is at an increased risk of falls due to her foot drop, especially when not wearing her brace at home. It was recommended to continue using her AFO, particularly when outside the home. She was counseled to be extra careful at home and advised to wear supportive footwear indoors to enhance stability, even though she prefers to be barefoot. Discussion Notes I reviewed the patient's history and the referring stencil inspector's note recommending a ixcn-yjyuw-pdyd orthosis (KAFO). After a physical and gait assessment, I explained that I did not agree with changing her current ankle-foot orthosis (AFO). I detailed that her current brace is effective, allowing her to walk, preventing foot drag, and she is comfortable with it. I elaborated that a KAFO is for individuals with significantly more weakness and would restrict her knee flexion, which she is currently able to do. I also explained that using a more restrictive brace could lead to her muscles becoming weaker at a faster rate. We discussed the importance of foot care due to her diabetes, including avoiding wrinkles in her socks and not walking barefoot at home to prevent injury and falls. My note will be available in the system for the referring provider, stating that I do not recommend any changes to her brace at this time. Patient Instructions - Continue using your current ankle-foot brace as it is working well for you. - I do not recommend getting a larger brace that goes up past your knee. - Do not walk barefoot in the house. - It is important to wear supportive shoes, like high-top sneakers, even when you are at home to help you stay steady and prevent falls. - When you put on socks, make sure there are no wrinkles, as this can cause skin sores, which is especially important because you have diabetes. - Continue your regular visits with your foot doctor for diabetic foot exams. - Be extra careful at home if you are not wearing your brace to avoid catching your foot and falling. Coding Level of Care Code New Pt Level 4 (51261) Add On Problem Visit Only Diagnoses Right hemiplegia G81.91 History of stroke Z86.73 Foot drop, right M21.371
--- OUTSIDE RECORDS SUMMARY | 2025-06-29 22:11 | XMS_ITS | Clinical Summary ---
Author Organization [facility] it Address [address] [place] [address] Care Team Providers Care Tabulating Supervisor Name Role Phone Mick Vidal MD Primary Care Provider [phone] Surgical History Surgery Date Site/Laterality Comments OTHER [...] 2016 OTHER SURGICAL HISTORY 12/2016 N/A PROCEDURE: AL TOTAL ABDOMINAL HYSTERECT W/WO RMVL TUBE OVARY; COMMENT: Sites. Salpingectomy OTHER SURGICAL HISTORY Right PROCEDURE: AL PRTL THYROID LOBECTOMY UNI W/WO ISTHMUSECTOMY BREAST SURGERY 2019 Left PROCEDURE: AL UNLISTED PROCEDURE BREAST; COMMENT: fibroademona Medical History [...] benign parenchymal asymmetries. Retroareolar postoperative changes and mirain. IMPRESSION: : 1. No mammographic evidence of [...] Recently Relevant to Health Maintenance Care Teams Tabulating Supervisor Relationship Specialty Start Date End Date Mick Vidal MD [address] [place] [address] PCP - General Internal Medicine 10/18/21
--- OUTSIDE RECORDS SUMMARY | 2025-06-29 22:11 | XMS_ITS | Encounter Summary ---
Author Organization [facility] Address [address] [place] [address] Phone Care Team Providers Care Mortgage Counselor Name Role Phone Claudio Mott MD Primary Care Provider [phone] Estephania Padilla NP Primary Care Provider [phone] Stephanie García MD Primary Care Provid er Encounter Details Date Type Department Care Team (Late st Contact Info) Description 04/09/2021 Procedure [facility], [address] [address] Social History Tobacco Use Types Packs/Day Years [...] Info) Description 07/26/2025 9:00 AM EST Telemedicine [facility] [place] Department of Neurology [address] [place] [address], 8th Floor, [address] [place] [address] Dianna Klein MD, MSc [address] [place] [id number] [email or web address] 09/18/2025 2:30 PM EST Office Visit [facility] Neurology [address] [place] [address] Prem Carrillo MD [address] [facility], 2nd [place] [address] documented as of this encounter Visit Diagnoses Not on filedocumented in this encounter Additional Health Concerns Infection Onset Date Last Indicated Resolved Time CoV-Exposed Comment:Positive COVID-19 06/09/2021 06/09/2021 06/09/2021 6:1 4 AM EST CoV-Risk 06/09/2021 06/09/2021 06/09/2021 6:14 AM EST COVID-19 06/09/2021 06/09/2021 06/30/2021 1:21 AM EST documented as of this encounter Care Teams Mortgage Counselor Relationship Specialty Start Date End Date Claudio Mott MD [address] [place], [place] [id number] [place] [address] PCP - General Neurology 04/16/21 06/30/22 Estephania Padilla NP [address] [place] [address] PCP - General 07/01/22 04/27/25 Stephanie García MD [address] [place] [address] PCP - General Internal Medicine 04/28/25 documented as of this encounter Additional Source Comments The information contained in this document represents components of the legal health record. It is not the complete legal health record.[facility]
--- OUTSIDE RECORDS SUMMARY | 2025-06-29 22:11 | XMS_ITS | Encounter Summary ---
Author Organization [facility] Address [address] [place] [address] Phone Care Team Providers Care Lead Burner Name Role Phone Stephanie García MD Primary Care Provid er Reason for Referral * MRI/CAT Scan - Closed Specialty Diagnoses / Procedures Referred By Shalom kessler Referred To Contact Radiology Procedures Outside MR Imaging Report Only Stephanie García MD [address] [place] [address] Phone: tel: fax: Referral ID Status Reason Start Date Expiration Date Visits Re quested Visits Authorized [id number] Closed 06/07/2025 1 1 Encounter Details Date Type Department Care Team (Late st Contact Info) Description 06/07/2025 Orders Only [facility] Neurology [address] [place] [address] Stephanie García MD [address] [place], [place] [phone] Social History Tobacco Use Types Packs/Day Years [...] Info) Description 07/26/2025 9:00 AM EST Telemedicine [facility] [place] [address] [place] [address], 8th Floor, [address] [place] [address] Dianna Klein MD, MSc [address] [place] [id number] [email or web address] 09/18/2025 2:30 PM EST Office Visit [facility] Neurology [address] [place] [phone] Prem Carrillo MD [address] [place] [address], [address] [place] [address] [email or web address] documented as of this encounter Procedures Procedure Name Priority Date/Time Associated Diagnosis Comments OUTSIDE MR IMAGING REPORT ONLY Routine 04/12/2025 11:37 AM EDT documented in this encounter Results * Outside MR Imaging Report Only (04/12/2025 11:37 AM EDT) Stephanie Phipps MD IMG MR [place] l Result documented in this encounter Visit Diagnoses Not on filedocumented in this encounter Care Teams Lead Burner Relationship Specialty Start Date End Date Stephanie García MD [address] [place] [address] PCP - General Internal Medicine 04/28/25 documented as of this encounter Additional Source Comments The information contained in this document represents components of the legal health record. It is not the complete legal health record.[facility]
--- OUTSIDE RECORDS SUMMARY | 2025-06-29 22:11 | XMS_ITS | Encounter Summary ---
Author Organization [facility] Address [address] [facility] [address] [place] [address] Phone Care Team Providers Care Inspector Handbag Frames Name Role Phone Claudio Mott MD Primary Care Provider [phone] Estephania Padilla NP Primary Care Provider [phone] Stephanie García MD Primary Care Provid er Reason for Referral * MRI/CAT Scan - Closed Specialty Diagnoses / Procedures Referred By Shalom kessler Referred To Contact Radiology Diagnoses Blurred vision Nonintractable headache, unspecified chronicity pattern, unspecified headache type Procedures MRI Brain Claudio Mott MD Phone: tel: fax: [email or web address] Referral ID Status Reason Start Date Expiration Date Visits Re quested Visits Authorized [id number] Closed 04/09/2021 04/09/2022 1 1 Encounter Details Date Type Department Care Team (Latest Contact Info) Description 04/09/2021 Transcribe Orders Virtual Department [address] [place] [phone] Claudio Mott MD [address] [place] [address], [address] [place], [place] [phone] [email or web address] Blurred vision (Primary Dx); Nonintractable headache, [...] [facility] [place] [place] Department of Neurology [address] [place] [address], 8th Floor, [address] [place] [address] Dianna Klein MD, MSc [address] [place] [phone] [email or web address] 09/18/2025 2:30 PM EST Office Visit [facility] Neurology [address] [place] [address] Prem Carrillo MD [address] [place] [address], 2nd [place] [address] [email or web address] documented as of this encounter Results * [...] right are similar to prior study. No dhewk-kwxcj-vvfhw blood or fluid collection, mass, or mass [...] and diffusion-weighted imaging with ADC map, coronal P3ECQKO and STIR, sagittal T1 sequences were obtained. [...] the right are similar toprior study. No dwave-skthv-absjm blood or fluid collection, mass, or masseffect [...] documented as of this encounter Care Teams Inspector Handbag Frames Relationship Specialty Start Date End Date Claudio Mott MD [address] [place] [address], [address] [place] [address] [email or web address] PCP - General Neurology 04/16/21 06/30/22 Estephania Padilla NP [address] [place] [address] [place] [address] PCP - General 07/01/22 04/27/25 Stephanie García MD NPI: [id number] [place] [id number] PCP - General Internal Medicine 04/28/25 documented as of this encounter Additional Source Comments The information contained in this document represents components of the legal health record. It is not the complete legal health record.[facility]
--- OUTSIDE RECORDS SUMMARY | 2025-06-29 22:11 | XMS_ITS | Clinical Summary ---
Author Organization [facility] Address [address] [place] [id number] Phone Care Team Providers Care Clinical Laboratory Science Professor Name Role Phone Stephanie García MD [...] morning. 90 tablet 3 05/19/20 25 Active Active Problems No known active problems Encounters Date Type Department Care Team Description 06/14/2025 Telephone [facility] Department of Neurology [address] [place] [address], 8th Floor, [address] [place] [id number] Unknown, Unknown, 06/07/2025 Orders Only [facility] [address] [place] [id number] Stephanie García MD 06/07/2025 Telephone [facility] Department of Neurology [address] [place] [address], 8th Floor, [address] [place] [address] Unknown, Gilbert, 06/04/2025 Telephone [facility] [address] [place] [address] [place] [address] Prem Carrillo MD 05/31/2025 12:37 PM EST - 05/31/2025 11:59 PM EST Hospital Encounter [facility] [address] [place] [address] Prem Carrillo MD Discharge Disposition: Home or Self Care 05/31/2025 Telephone [facility] Department of Neurology [address] [place] [address], 8th Floor, [address] [place] [address] Unknown, Unknown, 05/25/2025 Telephone [facility] Department of Neurology [address] [facility], 8th Floor, [address] [place] [address] Unknown, Unknown, 05/24/2025 Telephone [facility] Department of Neurology [address] [facility], 8th Floor, [address] [place] [address] Unknown, Unknown, 05/24/2025 Ancillary Orders [facility] [address] [place] [address] Unknown, Unknown, 05/24/2025 Ancillary Orders [facility] [address] [place] [id number] Unknown, Unknown, MD 05/24/2025 Ancillary Orders [facility] [address] [place] [address] Unknown, Unknown, 05/24/2025 Telephone [facility] Department of Neurology [address] [place] [address], 8th Floor, [address] [place] [address] Unknown, Unknown, 05/17/2025 Telephone [facility] Department of Neurology [address] [place] [address], 8th Floor, [address] [place] [address] Unknown, Unknown, 05/15/2025 11:23 AM EDT - 05/15/2025 11:59 PM EDT Hospital Encounter [address] [place] [address] Prem Carrillo MD Discharge Disposition: Home or Self Care 05/15/2025 10:30 AM EDT Office Visit [facility] [address] [place] [address] [place] [address] Prem Carrillo MD Seizure as late effect of cerebrovascular accident (CVA) (Primary Dx); Hx of ischemic left MCA stroke; Aphasia as late effect of cerebrovascular accident; Spasticity as late effect of cerebrovascular accident (CVA); On antiepileptic therapy 05/15/2025 Transcribe Orders [address] [place] [address] Prem Carrillo MD Seizure as late effect of cerebrovascular accident (CVA) (Primary Dx); On antiepileptic therapy 04/28/2025 10:30 AM EDT Office Visit [facility] [address] [place] [address] Felicitas Coley PA-C Seizure as late effect of cerebrovascular accident (CVA) (Primary Dx); Hx of ischemic left MCA stroke; Aphasia as late effect of cerebrovascular accident; Spasticity as late effect of cerebrovascular accident (CVA); Tongue biting; Daytime sleepiness 04/26/2025 Telephone [facility] [address] [place] [address] Prem Carrillo MD 04/24/2025 Telephone [facility] [address] [place] [address] Racquel Costello MA from Last 3 Months Social History Tobacco [...] Info) Description 07/26/2025 9:00 AM EST Telemedicine [facility] Department of Neurology [address] [place] [address], 8th Floor, [address] [place] [address] Dianna Klein MD, MSc [address] [place] [id number] [email or web address] 09/18/2025 2:30 PM EST Office Visit [facility] [address] [place] [address] [place] [address] Prem Carrillo MD [address] [place] [address], 2nd [place] [address] [email or web address] Health Maintenance Due Date Last Done Comments [...] Name Priority Date/Time Associated Diagnosis Comments OUTSIDE IMAGING 06/14/2025 EEG Routine 06/01/2025 2:30 PM EST Seizure [...] Recently Relevant to Health Maintenance Results * Outside Imaging Report Only (06/14/2025) us Scanning Interface Provider IMG XR CHEST Daja l Result * EEG (06/01/2025 2:30 PM EST) Anatomical [...] 10/19/24. No epileptiform activity or seizures occurred. MD [facility] Date: 06/04/25 Narrative 06/04/2025 8:41 PM EST [facility] AFFILIATE ELECTROENCEPHALOGRAPHY (EEG) LAB INTRODUCTION: The patient is [...] - 46.0 mcg/mL 05/24/2025 2:05 PM EST [facility] Comment:Limit of detection: 2 mcg/mL Blood Venipuncture / Unknown 05/22/2025 2:40 PM EST 05/22/2025 3:09 PM EST Narrative [facility] - 05/24/2025 2:05 PM EST This test was developed and its performance characteristics determined by [facility] Main Lab. It has not been cleared or approved by the U.S. Food and Drug Administration. This laboratory is certified under the Clinical Laboratory Improvement Amendments of 1988 (CLIA-88) as qualified to perform high complexity clinical laboratory testing. Prem Carrillo MD LAB BLOOD BKR ORDERABLES Final R esult Performing Organization Address [facility] Co de Phone Number [address] [address] * LAMOTRIGINE LEVEL (05/22/2025 2:40 PM EST) Lamotrigine 10.2 4.0 - 18.0 mcg/mL 05/24/2025 2:05 PM EST [facility] Comment:Limit of detection: 2 mcg/mL Blood Venipuncture / Unknown 05/22/2025 2:40 PM EST 05/22/2025 3:09 PM EST Narrative [facility] - 05/24/2025 2:05 PM EST This test was developed and its performance characteristics determined by [facility] Main Lab. It has not been cleared or approved by the U.S. Food and Drug Administration. This laboratory is certified under the Clinical Laboratory Improvement Amendments of 1988 (CLIA-88) as qualified to perform high complexity clinical laboratory testing. Prem Carrillo MD LAB BLOOD BKR ORDERABLES Final R esult Performing Organization Address [facility] Co de Phone Number [address] [address] * Outside MR Imaging Report Only (04/12/2025 11:37 AM EDT) Stephanie Phipps MD IMG MR Daja duarte Result * (ABNORMAL) Basic metabolic panel (07/05/2021 12:31 PM EST) SODIUM 135 133 - 146 mmol/L [facility] CHLORIDE 100 96 - 108 mmol/L [facility] POTASSIUM 4.1 3.3 - 5.1 mmol/L [facility] CO2 26 21 - 35 mmol/L [facility] BUN 11 6 - 19 mg/dL [facility] CREATININE 0.80 0.5 - 1.5 mg/dL [facility] GLUCOSE 158(H) 70 - 99 mg/dL [facility] CALCIUM 9.3 8.4 - 10.3 mg/dL [facility] EGFR 90 >59 mL/min/1.7 3m2 [facility] Comment:Estimated glomerular filtration rate calculated using the CKD-EPI refit equation. ANION GAP 13 10 - 20 mmol/L [facility] Blood 07/05/2021 12:3 1 PM EST 07/05/2021 12:45 PM EST Giuliana Krishnan PA-C LAB BLOOD BKR ORDERABLE S Final Result [facility] [address] [place] [address] from Last 3 Months or Most Recently Relevant to Health Maintenance Insurance MEDICARE PART A & B Member Subscriber Plan / Payer (Ef fective 2017-Present) Name:Virginie [place] Member ID:[id number] Relation to Subscriber:Self Name:Virginie [place] Subscriber ID:[id number] Payer ID:[id number] Group ID:Not on file Type:Medicare Address: [employer] [facility] [address] [place] [address] [facility] MEDICARE PART A & B [facility] MEDIC[facility] PART A & B [facility] Member Subscriber Plan / Payer (Ef fective 2021-Present) Name:Virginie Canada Relation to Subscriber:Self Name:Virginie Canada Payer ID:[id number] Group ID:Not on file Type:Medicaid Address: [address] [address] MEDICARE PART A & B [facility] MEDIC[facility] PART A & B [facility] MEDIC[facility] PART A & B [facility] MEDIC[facility] PART A & B [facility] MEDICARE PART A & B [facility] MEDICARE PART A & B [facility] Care Teams Clinical Laboratory Science Professor Relationship Specialty Start Date End Date Stephanie García MD [address] [place] [address] PCP - General Internal Medicine 04/28/25 Additional Source Comments The information contained in this document represents components of the legal health record. It is not the complete legal health record.[facility]
== END 2025-06-29 15:31 | disposition home or self-care (01) ==
LOC: HO.HPHYS 14:34
PROVIDERS: PCP Internal Medicine; Visit Provider Physical Medicine & Rehabilitation
DX: G81.91 Hemiplegia, unspecified affecting right dominant side (principal); Z86.73 Personal history of transient ischemic attack (TIA), and cerebral infarction without residual deficits; M21.371 Foot drop, right foot
CPT/HCPCS: 99204; G2211

== ENCOUNTER → 2025-06-29 14:34 | Outpatient (BNVA) | payer MEDICARE, MEDICAID, SELFPAY | PROVIDERS: PCP Internal Medicine; Visit Provider Physical Medicine & Rehabilitation | DX: G81.91 Hemiplegia, unspecified affecting right dominant side (principal); Z86.73 Personal history of transient ischemic attack (TIA), and cerebral infarction without residual deficits; E11.69 Type 2 diabetes mellitus with other specified complication; Z91.81 History of falling | CPT/HCPCS: 99202 ==

== ENCOUNTER 2025-07-07 13:47 | Outpatient (AMB) | payer MEDICARE, MEDICAID, SELFPAY ==
--- NOTE | 2025-07-07 14:01 | MHC.OFFVIS ---
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 Certified Medical Coder: Certified Medical Coder Present ([place]) Accompanied by: Sister Allergies dulaglutide (From Trulicity) Allergy (Intermediate, Verified 06/29/25 14:44) pruritus, swelling latex (LATEX) Allergy (Intermediate, Verified 06/29/25 14:44) Hives erythromycin base (ERYTHROMYCIN BASE) Allergy (Unknown, Verified 06/29/25 14:44) UNKNOWN Penicillins (PENICILLINS) Allergy (Unknown, Verified 06/29/25 14:44) UNKNOWN lactose Adverse Reaction (Verified 07/07/25 15:22) Flatulence metformin Adverse Reaction (Intermediate, Uncoded 05/24/25 15:15) abdominal discomfort HPI Comments Details: Pt presents today for ANNUAL exam She is not currently in a relationship. Exercise: walking in the home Nutrition/calcium: adequate in diet Contraception: surg/post menopause Last Pap: 2022 , Results: nEG Last mammo: 02/2025, Results BIRADS 2 COLONOSCOPY : 2022: Q 5YRS reports no family hx polyps or colon ca denies any family hx ov cancer The patient is a 55 year old female presenting for her annual gynecological examination and to discuss a new complaint of left shoulder pain after a recent fall. She reports falling earlier this week, landing on her buttocks after losing her balance, and subsequently developed left shoulder pain, although she did not land on the shoulder. She informed her primary care provider of the fall through the patient portal, they are awaiting a response. The patient has a history of a supracervical hysterectomy with ovarian preservation.Her last Pap smear in 2022 was negative. She reports experiencing menopausal symptoms, including poorly characterized vaginal irritation. Past medical history is significant for a stroke in 2015, which affects her mobility and balance. Her surgical history also includes a thyroid surgery for nodules and left breast biopsies for a cyst. Current medications are reviewed. She denies smoking, alcohol use, or substance use. The patient reports constipation. Holidays are a difficult time for her as her parents are . Her sister is present with her today and is her primary caregiver [facility] Medical History (Updated 07/07/25 @ 15:09 by Tatum Mcknight CNM) Cervical cancer screening Vaginal keith Pelvic pain Right hemiplegia Microalbuminuria due to type 2 diabetes mellitus Mild aphasia CVA (cerebral vascular accident) Diabetes Seizures Elevated cholesterol Hypertension Ecchymosis Encounter to establish care Hx of cyst of breast Surgical History Hx of colonoscopy History of partial hysterectomy History of thyroid surgery Family History Mother Bone cancer Hypertension Diabetes Father Diabetes Hypertension Maternal Aunt Breast cancer, Onset Age: 49 Family/Other Mental health disorder Social History (Updated 07/07/25 @ 14:51 by Tatum Mcknight CNM) Household Members: Children Household Members Other:: Lives with family Housing: House Do you presently have visiting nurse or other home services: No Alcohol intake: never Patient Tobacco Use Status: Never used Tobacco e-Cigarette/Vaping Use: Never Used Second Hand Smoke Exposure: No service: No Current occupational status: unemployed and disabled Cognitive needs: Yes (cane ) Hearing needs: No Vision needs: Yes (glasses) Female Reproductive History Menstrual Age of Menarche: 12 Date of last menstrual period: 03/05/17 Menopause type: surgical Age of menopause: 47 Total pregnancies: 1 Number of Living Children: 1 Date of last pap smear: 05/22/20 History of abnormal pap smear: No History of STI: No Review of Systems Const Reports no additional complaints Eyes Reports no additional complaints ENT Reports no additional complaints Card Reports no additional complaints Resp Reports no additional complaints GI Reports no additional complaints Reports as per [facility] Skin/Breast Reports system reviewed and no additional complaints, except as documented Physical Exam Vital Signs: Last Vital Signs BP 110/64 07/07/25 14:07 BMI result Body Mass Index 27.4 Const General: cooperative, healthy appearing and no acute distress Orientation/consciousness: patient oriented x3 HEENT Head: Yes normal to inspection and Yes normocephalic Ears: external ears normal General nose exam: No nasal discharge present Neck Neck: Yes normal visual inspection Chest Breast/axilla inspection: normal inspection of the breasts (left nipple old surgical scar), normal inspection of the axillae and Other (No skin changes, peau d orange, or nipple discharge noted) Breast/axilla palpation: normal palpation of the breasts, normal palpation of the axillae and no axillary lymphadenopathy Resp Effort & Inspection: normal respiratory effort GI Inspection: No distended Palpation (GI): Soft to palpation, nontender and no masses Percussion: Yes normal to percussion Rectal Exam - Female: No External hemorrhoid(s) present External Female Exam: normal external appearance and normal appearance of the urethra Speculum Exam - Vagina: normal appearance of the vagina, normal vaginal discharge and vagina atrophic Speculum Exam - Cervix: Other cervical findings present (cervical stump to the patient's left) Bimanual exam- vagina & uterus: uterus absent Bimanual Exam- Adnexa, other: no masses and No adnexal tenderness Skin General skin exam: no rashes or lesions noted Neuro Other: Right Hemiplegia General: patient oriented x3 Extrem Other: Right hemiplegia there is no bruising of the left upper shoulder and able to move full ROM in seting of recent fall. Psych Speech and movement: Normal speech and movement present Affect: normal affect Attitude: cooperative Thought process: Normal thought process present Assessment & Plan Assessment & Plan (1) Well woman exam with routine gynecological exam: Code(s): Z01.419 - Encounter for gynecological examination (general) (routine) without abnormal findings Plan: During the visit, the following areas of concern were addressed: Regular exercise Healthy lifestyle Menopausal/carolina-menopausal signs and symptoms, including nonprescription strategies for management Health Maintenance and Screening -Reviewed ASCCP guidelines for Paps and yearly (bi-yearly ) pelvic exam. -Reviewed and encouraged diet and exercise for cardiovascular and bone health -Reviewed breast self-awareness. Importance of yearly mammogram after age 40 (earlier if first-degree relative with breast cancer at a younger age ) Discuss use of 3 times per week weight-bearing exercise, vitamin D3 and servings of dietary calcium daily for bone health. -continue to follow with PCP for general medical care, immunizations. Screening strategies for colon cancer after age 50. Family and personal history of cancer reviewed. Genetic screening - not indicated The patient has BMI: 27 Cont approaches towards weight loss are discussed including burning more calories than one takes in by frequent, small meals, portion control, avoiding eating before bedtime, regular exercise with an emphasis on duration rather than intensity RTO one year or sooner prprem Mcknight CNM Note about provider documentation : If you or the patient named in this chart and are reviewing your medical notes, please note that medical documentation is often written with abbreviations and medical terminology, and directed for other providers who may be involved in your care as well. Documentation is critical to record what has happened, what tests were ordered, and so they are interpreted with the resulting diagnoses. These notes have been made available for patient review but not specifically written for the patient. Important health information is always given to my patients in clinical instructions. Please review your after visit summary and our contact our clinical staff if you have any questions. (2) Screening breast examination: Code(s): Z12.39 - Encounter for other screening for malignant neoplasm of breast (3) Fall on same level from slipping, tripping or stumbling: Code(s): W01.0XXA - Fall on same level from slipping, tripping and stumbling without subsequent striking against object, initial encounter Qualifiers: Encounter type: initial encounter Qualified Code(s): W01.0XXA - Fall on same level from slipping, tripping and stumbling without subsequent striking against object, initial encounter (4) Left shoulder pain: Code(s): M25.512 - Pain in left shoulder Qualifiers: Chronicity: acute Qualified Code(s): M25.512 - Pain in left shoulder (5) Acute vaginitis: Code(s): N76.0 - Acute vaginitis Plan 1. Left shoulder pain The patient reports new shoulder pain following a fall. An order will be placed for imaging of the left shoulder to investigate for injury. She has been provided with the requisition and advised to follow up with her primary care provider. 2. Vaginal irritation and atrophic vaginitis The patient has poorly defined symptoms of vaginal irritation, and the exam revealed vaginal dryness consistent with menopause. Vaginal swabs were collected to rule out infectious causes. Pending results, she is advised to use an [id number] skin barrier, such as Vaseline or Aquaphor, on the external labia for symptomatic relief. 3. Annual gynecological examination The patient is here for her routine annual exam. Her last Pap smear in 2022 was negative, so cervical cancer screening is not due today. A breast and pelvic exam were completed. She is advised to schedule her next annual exam in one year. 4. Fall and impaired mobility The patient experienced a fall due to loss of balance, related to her history of a stroke. She has a pending referral for physical therapy which she has not yet attended. She is encouraged to follow up with her primary care provider regarding the fall. Orders: Orders XR shoulder LT min 2V Today M25.512 - Pain in left shoulder, W01.0XXA - Fall on same level from slipping, tripping and stumbling without subsequent striking against object, initial encounter Bacterial Vaginosis Panel Today N76.0 - Acute vaginitis, Z01.419 - Encounter for gynecological examination (general) (routine) without abnormal findings Coding Level of Care Code Est Pt Prev Care 40-64y([address]) Diagnoses Well woman exam with routine gynecological exam Z01.419 Screening breast examination Z12.39 Fall on same level from slipping, tripping or stumbling, initial encounter W01.0XXA Encounter type: initial encounter Acute pain of left shoulder M25.512 Chronicity: acute Acute vaginitis N76.0
[2025-07-07 14:07] VITALS: BP 110/64; BMI 27.4
--- OUTSIDE RECORDS SUMMARY | 2025-07-07 15:26 | XMS_ITS | Clinical Summary ---
Author Organization [facility] Address [address] [place] [address] Phone Care Team Providers Care Chain Maker Hand Name Role Phone Stephanie García MD Primary [...] mouth every evening. 90 tablet 3 05/19/20 Active levETIRAcetam (KEPPRA) 750 MG IMMEDIATE release tabletIndications: Seizure as late effect of cerebrovascular accident (CVA) Take 1 tablet (750 mg total) by mouth every morning. 90 tablet 3 05/19/20 25 Active Active Problems No known active problems Encounters Date Type Department Care Team Description 06/14/2025 Telephone [facility] Neurology Stroke Service [address] [facility], 8th Floor, [address] [place] [address] Unknown, Unknown, 06/07/[address] [facility] [address] [place] [address] Stephanie García MD 06/07/2025 Telephone [facility] Neurology Stroke Service [address], 8th Floor, [address] [place] [address] Unknown, [place], 06/04/[address] [facility]rology Clinic [address] [place] [address] Prem Carrillo MD 05/31/2025 12:37 PM EST - 05/31/2025 11:59 PM EST Hospital Encounter [facility] [address] [place] [address] Prem Carrillo MD Discharge Disposition: Home or Self Care 05/31/2025 Telephone [facility] Neurology Stroke Service [address], 8th [address], [address] [place] [address] Unknown, Unknown, 05/25/2025 Telephone [facility] Neurology Stroke Service [address], 8th [address], [address] [place] [address] Unknown, Unknown, 05/24/2025 Telephone [facility] Neurology Stroke Service [address], 8[address], [address] [place] [address] Unknown, Unknown, 05/24/2025 Ancillary Orders [facility] [address] [place] [address] Unknown, Unknown, 05/24/2025 Ancillary Orders [facility] [address] [place] [address] Unknown, Unknown, MD 05/24/2025 Ancillary Orders [facility] [address] [place] [address] Unknown, Unknown, 05/24/2025 Telephone [facility] Neurology Stroke Service [address], 8th [facility], [address] [place] [address] Unknown, Unknown, 05/17/2025 Telephone [facility] Neurology Stroke Service [address], 8th [facility], [address] [place] [address] Unknown, Unknown, 05/15/2025 11:23 AM EDT - 05/15/2025 11:59 PM EDT Hospital Encounter [address] [place] [address] Prem Carrillo MD Discharge Disposition: Home or Self Care 05/15/2025 10:30 AM EDT Office Visit [facility] Neurology Clinic [address] [place] [address] [place] [address] Prem Carrillo MD Seizure as late effect of cerebrovascular accident (CVA) (Primary Dx); Hx of ischemic left MCA stroke; Aphasia as late effect of cerebrovascular accident; Spasticity as late effect of cerebrovascular accident (CVA); On antiepileptic therapy 05/15/2025 Transcribe Orders [address] [place] [address] Prem Carrillo MD Seizure as late effect of cerebrovascular accident (CVA) (Primary Dx); On antiepileptic therapy 04/28/2025 10:30 AM EDT Office Visit [facility] [address] [place] [address] Felicitas Coley PA-C Seizure as late effect of cerebrovascular accident (CVA) (Primary Dx); Hx of ischemic left MCA stroke; Aphasia as late effect of cerebrovascular accident; Spasticity as late effect of cerebrovascular accident (CVA); Tongue biting; Daytime sleepiness 04/26/[address] [facility] Neurology [facility] [address] [place] [address] Prem Carrillo MD 04/24/[address] [facility] Neurology [facility] [address] [place] [address] Racquel Costello MA from Last 3 Months [...] Info) Description 07/26/2025 9:00 AM EST Telemedicine [facility] Neurology Stroke Service [address], 8th [address], [address] [place] [address] Dianna Klein MD, MSc [address] [place] [address] [email or web address] 09/18/2025 2:30 PM EST Office Visit [facility]rology Clinic [address] [place] [address] Prem Carrillo MD [address] [facility], 2nd [place] [address] [email or web address] Health Maintenance Due Date Last Done Comments [...] Additional history exists COVID-19 VACCINE ( - 2024- season) 2025 LIPID PANEL 05/13/2026 [...] activity or seizures occurred. Prem Carrillo MD [facility] Neurology Date: 06/04/25 Narrative 06/04/2025 8:41 PM EST [facility] AFFILIATE ELECTROENCEPHALOGRAPHY (EEG) LAB INTRODUCTION: [...] - 46.0 mcg/mL 05/24/2025 2:05 PM EST [facility] Comment:Limit of detection: 2 mcg/mL Blood Venipuncture / Unknown 05/22/2025 2:40 PM EST 05/22/2025 3:09 PM EST Narrative [facility] - 05/24/2025 2:05 PM EST This test was developed and its performance characteristics determined by [facility] Main Lab. It has not been cleared or approved by the U.S. Food and Drug Administration. This laboratory is certified under the Clinical Laboratory Improvement Amendments of 1988 (CLIA-88) as qualified to perform high complexity clinical laboratory testing. Prem Carrillo MD LAB BLOOD BKR ORDERABLES Final R esult Performing Organization Address [facility] Co de Phone Number [address] [address] * LAMOTRIGINE LEVEL (05/22/2025 2:40 PM EST) Lamotrigine 10.2 4.0 - 18.0 mcg/mL 05/24/2025 2:05 PM EST [facility] Comment:Limit of detection: 2 mcg/mL Blood Venipuncture / Unknown 05/22/2025 2:40 PM EST 05/22/2025 3:09 PM EST Narrative [facility] - 05/24/2025 2:05 PM EST This test was developed and its performance characteristics determined by [facility] Main Lab. It has not been cleared or approved by the U.S. Food and Drug Administration. This laboratory is certified under the Clinical Laboratory Improvement Amendments of 1988 (CLIA-88) as qualified to perform high complexity clinical laboratory testing. Prem Carrillo MD LAB BLOOD BKR ORDERABLES Final R esult Performing Organization Address [facility] Co de Phone Number [address] [address] * Outside MR Imaging Report Only (04/12/2025 11:37 AM EDT) Stephanie Phipps MD IMG MR Daja l Result * (ABNORMAL) Basic metabolic panel (07/05/2021 12:31 PM EST) SODIUM 135 133 - 146 mmol/L [facility] CHLORIDE 100 96 - 108 mmol/L [facility] POTASSIUM 4.1 3.3 - 5.1 mmol/L [facility] CO2 26 21 - 35 mmol/L [facility] BUN 11 6 - 19 mg/dL [facility] CREATININE 0.80 0.5 - 1.5 mg/dL [facility] GLUCOSE 158(H) 70 - 99 mg/dL [facility] CALCIUM 9.3 8.4 - 10.3 mg/dL [facility] EGFR 90 >59 mL/min/1.7 3m2 [facility] Comment:Estimated glomerular filtration rate calculated using the CKD-EPI refit equation. ANION GAP 13 10 - 20 mmol/L [facility] Blood 07/05/2021 12:3 1 PM EST 07/05/2021 12:45 PM EST Giuliana Krishnan PA-C LAB BLOOD BKR ORDERABLE S Final Result [facility] [address] [place] [address] from Last 3 Months or Most Recently Relevant to Health Maintenance Insurance MEDICARE PART A & B [facility] MEDICARE PART A & B Member Subscriber Plan / Payer (Ef fective 2017-Present) Name:Virginie [place] Member ID:[id number] Relation to Subscriber:Self Name:Virginie [place] Subscriber ID:[id number] Payer ID:[id number] Group ID:Not on file Type:Medicare Address: Payment plugin [address] [place] [phone] [facility] & [place] [facility] [place] B Member Subscriber Plan / Payer (Ef fective 2017-Present) Name:Virginie [place] Member ID:[id number] Relation to Subscriber:Self Name:Virginie [place] Subscriber ID:[id number] Payer ID:[id number] Group ID:Not on file Type:Medicare Address: Payment plugin [address] [place] [phone] [facility] & B [place] MED[place] PART A & B [facility] MEDICARE PART A & B [facility] Care Teams Chain Maker Hand Relationship Specialty Start Date End Date Stephanie García MD [address] [place] [address] PCP - General Internal Medicine 04/28/25 Additional Source Comments The information contained in this document represents components of the legal health record. It is not the complete legal health record.[facility]
--- OUTSIDE RECORDS SUMMARY | 2025-07-07 15:26 | XMS_ITS | Clinical Summary ---
Author Organization [facility] Address [address] [facility] [address] [place] [address] Phone Care Team Providers Care Supervisor Billposting Name Role Phone Stephanie García MD Primary Care Provider Allergies Active Allergy Reactions Criticality Noted Date [...] no shunt 03/23/15- AC management transferred to [facility]. 05/29/16- warfarin stopped per Neuro. On asa 81 mg daily. Seizure 02/08/2015 Overview (10/07/2022): effexor and neurontin started at [facility] and were stopped due to ? seizure [...] Office Visit [facility] [address] [address] Gianna Mart ARNP [address] [address] Health Maintenance Due Date Last [...] 49 Years) Discontinued 05/06/2017 [place] Care Teams Supervisor Billposting Relationship Specialty Start Date End Date Stephanie García MD [address] [place] [address] PCP - General Internal Medicine 01/05/24
--- OUTSIDE RECORDS SUMMARY | 2025-07-07 15:26 | XMS_ITS | Encounter Summary ---
Author Organization [facility] Address [address] [place] [address] Phone Care Team Providers Care Pharmacy Clinical Specialist Name Role Phone Claudio Mott MD Primary Care Provider [phone] Estephania Padilla NP Primary Care Provider [phone] Stephanie García MD Primary Care Provid er Encounter Details Date Type Department Care Team (Late st Contact Info) Description 04/09/2021 Procedure Pass [facility], [address] [address] Social History Tobacco Use Types Packs/Day Years [...] Info) Description 07/26/2025 9:00 AM EST Telemedicine [facility] Neurology Stroke Service [address] [place] [address], 8th Floor, [address] [place] [address] Dianna Klein MD, MSc [address] [place] [address] [email or web address] 09/18/2025 2:30 PM EST Office Visit [facility] Neurology Clinic [address] [place] [address] Prem Carrillo MD [address] [facility], 2nd [place] [address] documented as of this encounter Visit Diagnoses Not on filedocumented in this encounter Additional Health Concerns Infection Onset Date Last Indicated Resolved Time CoV-Exposed Comment:Positive COVID-19 06/09/2021 06/09/2021 06/09/2021 6:1 4 AM EST CoV-Risk 06/09/2021 06/09/2021 06/09/2021 6:14 AM EST COVID-19 06/09/2021 06/09/2021 06/30/2021 1:21 AM EST documented as of this encounter Care Teams Pharmacy Clinical Specialist Relationship Specialty Start Date End Date Claudio Mott MD [address] [place], [place] [address] [place] [address] PCP - General Neurology 04/16/21 06/30/22 Estephania Padilla NP [address] [place] [address] PCP - General 07/01/22 04/27/25 Stephanie García MD [address] [place] [address] PCP - General Internal Medicine 04/28/25 documented as of this encounter Additional Source Comments The information contained in this document represents components of the legal health record. It is not the complete legal health record.[facility]
--- OUTSIDE RECORDS SUMMARY | 2025-07-07 15:26 | XMS_ITS | Encounter Summary ---
Author Organization [facility] Address [address] [place] [address] Phone Care Team Providers Care Custodial Operations Manager Name Role Phone Stephanie García MD Primary Care Provid er Reason for Referral * MRI/CAT Scan - Closed Specialty Diagnoses / Procedures Referred By Shalom kessler Referred To Contact Radiology Procedures Outside MR Imaging Report Only Stephanie García MD [address] [place] [address] Phone: tel: fax: Referral ID Status Reason Start Date Expiration Date Visits Re quested Visits Authorized [id number] Closed 06/07/2025 1 1 Encounter Details Date Type Department Care Team (Late st Contact Info) Description 06/07/2025 Orders Only [facility] Neurology Clinic [address] [place] [address] Stephanie García MD [address] [place], [place] [id number] Social History Tobacco Use Types Packs/Day Years [...] Info) Description 07/26/2025 9:00 AM EST Telemedicine [facility] Neurology Stroke Service [address] [place] [address], 8th Floor, [address] [place] [address] Dianna Klein MD, MSc [address] [place] [address] [email or web address] 09/18/2025 2:30 PM EST Office Visit [facility] Neurology Clinic [address] [place] [address] Prem Carrillo MD [address] [place] [address], 2nd [place] [address] [email or web address] documented as of this encounter Procedures Procedure Name Priority Date/Time Associated Diagnosis Comments OUTSIDE MR IMAGING REPORT ONLY Routine 04/12/2025 11:37 AM EDT documented in this encounter Results * Outside MR Imaging Report Only (04/12/2025 11:37 AM EDT) Stephanie Phipps MD IMG MR Daja l Result documented in this encounter Visit Diagnoses Not on filedocumented in this encounter Care Teams Custodial Operations Manager Relationship Specialty Start Date End Date Stephanie García MD [address] [place] [address] (work) PCP - General Internal Medicine 04/28/25 documented as of this encounter Additional Source Comments The information contained in this document represents components of the legal health record. It is not the complete legal health record.[facility]
--- OUTSIDE RECORDS SUMMARY | 2025-07-07 15:26 | XMS_ITS | Encounter Summary ---
Author Organization [facility] Address [address] [place] [address] Phone Care Team Providers Care Departmental Shipping Clerk Name Role Phone Claudio Mott MD Primary Care Provider [phone] Estephania Padilla NP Primary Care Provider [phone] Stephanie García MD Primary Care Provid er Reason for Referral * MRI/CAT Scan - Closed Specialty Diagnoses / Procedures Referred By Shalom kessler Referred To Contact Radiology Diagnoses Blurred vision Nonintractable headache, unspecified chronicity pattern, unspecified headache type Procedures MRI Brain Claudio Mott MD Phone: tel: fax: [email or web address] Referral ID Status Reason Start Date Expiration Date Visits Re quested Visits Authorized [id number] Closed 04/09/2021 04/09/2022 1 1 Encounter Details Date Type Department Care Team (Latest Contact Info) Description 04/09/2021 Transcribe Orders Virtual Department [address] [place] [address] Claudio Mott MD [address] [place] [address], [address] [place], [place] [phone] [email or web address] Blurred vision (Primary Dx); Nonintractable headache, [...] Info) Description 07/26/2025 9:00 AM EST Telemedicine [facility] Neurology Stroke Service [address] [facility], 8th Floor, [address] [place] [address] Dianna Klein MD, MSc [address] [place] [address] [email or web address] 09/18/2025 2:30 PM EST Office Visit [facility] Neurology Clinic [address] [place] [address] Prem Carrillo MD [address] [place] [address], 2nd [place] [address] [email or web address] documented as of this encounter Results * [...] right are similar to prior study. No [id number] blood or fluid collection, mass, or mass [...] and diffusion-weighted imaging with ADC map, coronal [id number] and STIR, sagittal T1 sequences were obtained. [...] the right are similar toprior study. No [id number] blood or fluid collection, mass, or masseffect [...] documented as of this encounter Care Teams Departmental Shipping Clerk Relationship Specialty Start Date End Date Claudio Mott MD [address] [place] [address], [address] [place] [address] [email or web address] PCP - General Neurology 04/16/21 06/30/22 Estephania Padilla NP [address] [place] [address] [place] [address] PCP - General 07/01/22 04/27/25 Stephanie García MD [address] [place] [address] PCP - General Internal Medicine 04/28/25 documented as of this encounter Additional Source Comments The information contained in this document represents components of the legal health record. It is not the complete legal health record.[facility]
--- OUTSIDE RECORDS SUMMARY | 2025-07-07 15:26 | XMS_ITS | Clinical Summary ---
Author Organization [facility] Address [address] [place] [address] Care Team Providers Care Electronics Engineering Technologist Name Role Phone Mick Vidal MD Primary Care Provider [phone] Surgical History Surgery Date Site/Laterality Comments OTHER [...] 2016 OTHER SURGICAL HISTORY 12/2016 N/A PROCEDURE: NE TOTAL ABDOMINAL HYSTERECT W/WO RMVL TUBE OVARY; COMMENT: Sites. Salpingectomy OTHER SURGICAL HISTORY Right PROCEDURE: NE PRTL THYROID LOBECTOMY UNI W/WO ISTHMUSECTOMY BREAST SURGERY 2019 Left PROCEDURE: NE UNLISTED PROCEDURE BREAST; COMMENT: [email or web address] Medical History [...] Recently Relevant to Health Maintenance Care Teams Electronics Engineering Technologist Relationship Specialty Start Date End Date Mick Vidal MD [address] [place] [address] PCP - General Internal Medicine 10/18/21
== END 2025-07-07 14:54 | disposition home or self-care (01) ==
PROVIDERS: PCP Internal Medicine; Visit Provider Advanced Practice Midwife
DX: Z01.419 Encounter for gynecological examination (general) (routine) without abnormal findings (principal); Z12.39 Encounter for other screening for malignant neoplasm of breast; W01.0XXA Fall on same level from slipping, tripping and stumbling without subsequent striking against object, initial encounter; M25.512 Pain in left shoulder; N76.0 Acute vaginitis
CPT/HCPCS: 99213; G0101

== ENCOUNTER 2025-07-07 13:47 | Outpatient (REF) | payer MEDICARE, MEDICAID, SELFPAY ==
[2025-07-07 18:13] LABS: Bacterial Vaginosis PCR NEGATIVE (Negative); Candida Group PCR NOT DETECTED (Not Detect); Candida glab krusei PCR NOT DETECTED (Not Detect); Trichomonas vaginalis PCR NOT DETECTED (Not Detect)
== END 2025-07-07 13:48 | disposition home or self-care (01) ==
LOC: HO.LNP 13:47
PROVIDERS: PCP Internal Medicine; Visit Provider Advanced Practice Midwife
DX: Z01.419 Encounter for gynecological examination (general) (routine) without abnormal findings (principal); Z12.39 Encounter for other screening for malignant neoplasm of breast; M25.512 Pain in left shoulder; N76.0 Acute vaginitis; Z20.2 Contact with and (suspected) exposure to infections with a predominantly sexual mode of transmission; W01.0XXA Fall on same level from slipping, tripping and stumbling without subsequent striking against object, initial encounter
CPT/HCPCS: 81515

== ENCOUNTER → 2025-07-18 14:30 | Outpatient (RCR) | payer MEDICARE, MEDICAID, SELFPAY | END | disposition home or self-care (01) | LOC: HO.SH 05-30 15:44 | PROVIDERS: PCP Internal Medicine; Visit Provider Internal Medicine Gastroenterology | DX: R13.10 Dysphagia, unspecified (principal) | CPT/HCPCS: 92526 ==